=== PATIENT | female | born 1940 | race Caucasian/White ===

== ENCOUNTER 2016-06-09 14:00 | Emergency (ER) | payer OTHER, MEDICARE ==
[~2016-06-09] VITALS: Ht 172.7 cm; Wt 61.0 kg
[2016-06-09 14:00] VITALS: BP 114/57; PULSE 71; RESP 16; TEMP 98.2; O2SAT 100
[~2016-06-09 14:00] MED LIST: BACL10TA PO; CLOP75 PO; DIAZ10TA PO; METF-324 PO; METO25CR PO; PRAV40TA2 PO; PROM25SU8 PR; PROT40TA PO; SERT25TA83 PO; TOPR50TA PO; [UNRECOGNIZED DRUG - CODE] PO
[2016-06-09] MEDS ORDERED: SODIUM CHLOR 0.9% 1000 ML INJ 1,000 ML IV SCH (14:22)
[2016-06-09] MEDS ORDERED: SODIUM CHLORIDE 0.9% FLUSH 5 ML FLUSH IVF PRN (14:30)
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
[2016-06-09 15:17] LABS: AMPHETAMINE, URINE NEG (NEG); BARBITURATES, URINE NEG (NEG); COCAINE, URINE NEG (NEG)
[2016-06-09 15:20] LABS: APTT (PATIENT) 23.2 SEC (24.3-30.1); INTERNATIONAL NORMALIZED RATIO 0.9 RATIO; PROTHROMBIN TIME - PATIENT 10.1 SEC (9.8-11.6)
[2016-06-09 15:22] LABS: BLOOD, URINE NEG (NEG); GLUCOSE,URINE NEG (NEG); GRANULAR CAST, URINE 1 /lpf; HYALINE CAST, URINE 2 /lpf (RARE); KETONE, URINE NEG (NEG); NITRITE,URINE NEG (NEG); PH, URINE 5.5 (5.0-8.5); URINE COLOR YELLOW (YELLW/STRAW)
[2016-06-09 15:23] LABS: COMMENT (UR) CATH-CULTURE IND; CULTURE IF INDICATED CATH CULTURE IND
[2016-06-09 15:24] LABS: AUTOMATED NEUTROPHIL # 6.1 TH/MM3 (1.8-7.7); BASOPHIL % 0.5 % (0.0-2.0); EOSINOPHIL # 0.1 TH/MM3 (0-0.4); EOSINOPHIL % 1.4 % (0.0-4.0); HEMATOCRIT 28.9 % (35.0-46.0); HEMO FLAGS DIFF FINAL; LYMPH % 16.5 % (9.0-44.0); LYMPHOCYTE # 1.3 TH/MM3 (1.0-4.8); MEAN CELL VOLUME 97.5 FL (80.0-100.0); MEAN CORPUSCULAR HEMOGLOBIN 32.1 PG (27.0-34.0); MEAN CORPUSCULAR HGB CONC 32.9 % (32.0-36.0); MONO % 5.4 % (0.0-8.0); NEUT % 76.2 % (16.0-70.0); PLATELET COUNT 354 TH/MM3 (150-450); RED BLOOD COUNT 2.96 MIL/MM3 (4.00-5.30); RED CELL DISTRIBUTION WIDTH 13.8 % (11.6-17.2); WHITE BLOOD COUNT 8.1 TH/MM3 (4.0-11.0)
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
[2016-06-09 15:30] VITALS: BP 143/61; PULSE 72; RESP 16; O2SAT 100
[2016-06-09 15:31] LABS: ALT (GPT) 15 U/L (10-53); ANION GAP 11 MEQ/L (5-15); AST (GOT) 12 U/L (15-37); BICARBONATE 21.3 MEQ/L (21.0-32.0); BLOOD UREA NITROGEN 20 MG/DL (7-18); CHLORIDE 105 MEQ/L (98-107); GLOMERULAR FILTRATION RATE 33 ML/MIN (>89); POTASSIUM 4.6 MEQ/L (3.5-5.1); SODIUM (NA) 137 MEQ/L (136-145)
[2016-06-09 15:41] LABS: ACETAMINOPHEN 10.3 MCG/ML (10.0-30.0); ALKALINE PHOSPHATASE 78 U/L (45-117); TOTAL BILIRUBIN ADULT 0.2 MG/DL (0.2-1.0)
[2016-06-09] MEDS ORDERED: DIAZ10 PO (15:47)
[2016-06-09] MEDS ORDERED: LACO50 PO (15:47)
[2016-06-09] MEDS ORDERED: TOPR50TA PO (15:47)
[2016-06-09] MEDS ORDERED: METF-382 PO (15:47)
[2016-06-09] MEDS ORDERED: PRAV40TA PO (15:47)
[2016-06-09] MEDS ORDERED: PLAV75TA29 PO (15:47)
[2016-06-09] MEDS ORDERED: SERT25TA83 PO (15:47)
[2016-06-09] MEDS ORDERED: PANT40TA3 PO (15:47)
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
[2016-06-09 17:30] VITALS: BP 119/56; PULSE 78; RESP 16; O2SAT 99
--- NOTE | 2016-06-11 00:01 | EKG ---
Date Performed: 06/09/2016 Time Performed: 14:08:28 PTAGE: 76 years EKG: Sinus rhythm NORMAL ECG PREVIOUS TRACING : 12/23/2013 06.27 Compared to prior tracing no significant change DOCTOR: Mao Post Interpretating Date/Time 06/11/2016 00:00:07
== END 2016-06-09 19:58 | disposition home or self-care (01) ==
LOC: NEPA 14:00
DX: R40.0 Somnolence (principal); T40.2X5A Adverse effect of other opioids, initial encounter; M25.552 Pain in left hip; G89.29 Other chronic pain; I10 Essential (primary) hypertension; V47.5XXA Car driver injured in collision with fixed or stationary object in traffic accident, initial encounter; Y92.410 Unspecified street and highway as the place of occurrence of the external cause; Z87.440 Personal history of urinary (tract) infections
CPT/HCPCS: 70450; 73502; 80053; 80307; 80320; 81001; 84443; 85025; 85610; 85730; 87086; 93005; 96360; 96361; 99285; J7030; P9612; 80329; G0480

== ENCOUNTER 2016-08-22 11:05 | Emergency (ER) | payer MEDICARE, OTHER ==
[~2016-08-22] VITALS: Ht 172.7 cm; Wt 57.0 kg
[~2016-08-22 11:05] MED LIST changes: -BACL10TA PO; -CLOP75 PO; +DIAZ10 PO; -DIAZ10TA PO; +LACO50 PO; -METF-324 PO; +METF-382 PO; -METO25CR PO; +PANT40TA3 PO; +PLAV75TA29 PO; +PRAV40TA PO; -PRAV40TA2 PO; -PROM25SU8 PR; -PROT40TA PO; -[UNRECOGNIZED DRUG - CODE] PO
[2016-08-22 11:14] VITALS: BP 121/58; PULSE 93; RESP 16; TEMP 97.8; O2SAT 95
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
--- NOTE | 2016-08-22 11:55 | RADRPT ---
EXAM DATE/TIME: 08/22/2016 11:37 [facility] COMPARISON: No previous studies available for comparison. INDICATIONS : Right ankle pain post fall last night. MEDICAL HISTORY : None. SURGICAL HISTORY : None. ENCOUNTER: Initial ACUITY: 2 days PAIN SCORE: 10/10 LOCATION: Right ankle. FINDINGS: Three view exam was performed of the right ankle. The bony structures are in normal alignment. No e vidence of fracture, dislocation. There is lateral soft tissue swelling. The ankle mortise is intact . No radiopaque foreign bodies are seen. Bony mineralization is under mineralized. CONCLUSION: Soft tissue swelling without fracture. Pelon Clayton MD on August 22, 2016 at 11:53 Board Certified Radiologist. This report was verified electronically.
--- NOTE | 2016-08-22 11:56 | RADRPT ---
EXAM DATE/TIME: 08/22/2016 11:43 [facility] COMPARISON: HUMERUS RIGHT (MIN 2VWS), February 23, 2015, 16:14. INDICATIONS : Right humerus pain post fall last night. MEDICAL HISTORY : None. SURGICAL HISTORY : None. ENCOUNTER: Initial ACUITY: 2 days PAIN SCORE: 10/10 LOCATION: Right humerus. FINDINGS: Two view examination of the right humerus demonstrates no evidence of fracture or dislocation. Bony mineralization is normal. The soft tissue structures are intact. CONCLUSION: No acute fracture. Pelon Clayton MD on August 22, 2016 at 11:54 Board Certified Radiologist. This report was verified electronically.
--- NOTE | 2016-08-22 12:04 | RADRPT ---
EXAM DATE/TIME: 08/22/2016 11:38 [facility] COMPARISON: No previous studies available for comparison. INDICATIONS : Right foot pain post fall last night. MEDICAL HISTORY : None. SURGICAL HISTORY : None. ENCOUNTER: Initial ACUITY: 2 days PAIN SCORE: 10/10 LOCATION: Right foot. FINDINGS: Three view examination of the right foot demonstrates soft tissue swelling. Questionable fracture bas e of distal phalanx great toe. Degenerative changes first metatarsophalangeal joint and interphalange al joints. Osteopenia. The calcaneus is intact. CONCLUSION: 1. Soft tissue swelling with questionable fracture base of distal phalanx of great toe. 2. Osteopenia. Pelon Clayton MD on August 22, 2016 at 11:59 Board Certified Radiologist. This report was verified electronically.
--- NOTE | 2016-08-22 12:05 | RADRPT ---
EXAM DATE/TIME: 08/22/2016 11:40 [facility] COMPARISON: No previous studies available for comparison. INDICATIONS : Right lower leg pain post fall last night. MEDICAL HISTORY : None. SURGICAL HISTORY : None. ENCOUNTER: Initial ACUITY: 2 days PAIN SCORE: 10/10 LOCATION: Right tibia/fibula. FINDINGS: Two view examination of the right tibia demonstrates no evidence of fracture or dislocation. Bony mi neralization is normal. Soft tissue swelling. CONCLUSION: Soft tissue swelling without fracture. Pelon Clayton MD on August 22, 2016 at 12:02 Board Certified Radiologist. This report was verified electronically.
--- NOTE | 2016-08-22 12:31 | PD ---
Data Data Last Documented VS Vital Signs Date Time Temp Pulse Resp B/P Pulse Ox O2 Delivery O2 Flow Rate FiO2 08/22/16 11:14 97.8 93 16 121/58 95 Orders Ankle, Complete ([id number]) (08/22/16 ) Foot, Complete ([id number]) (08/22/16 ) Humerus (Min 2vws) (08/22/16 ) Tibia/Fibula (Ap/Lat) (08/22/16 ) Complete Blood Count With Diff (08/22/16 11:31) Basic Metabolic Panel (Bmp) (08/22/16 11:31) MDM Supervised Visit with LOLY: Yes Narrative Course The history, exam, and medical decision-making in the associated mid-level provider note were completed with my assistance. I reviewed and agree with the findings presented. I attest that I had a [id number] encounter with the patient on the same day, and personally performed and documented my assessment and findings in the medical record. *My assessment and Findings: 76-year-old with a fall last night. She landed on her foot. She is some pain on the lateral aspect of her left ankle. X-rays are negative. States she has been walking on it albeit with some discomfort. She is a walker. She lives with her sister. We did test her in the emergency department in both the patient and her sister comfortable with discharge and outpatient follow-up. Wali Lobato MD August 22, 2016 12:30
== END 2016-08-22 12:53 | disposition home or self-care (01) ==
LOC: NEPD 11:05
DX: S93.401A Sprain of unspecified ligament of right ankle, initial encounter (principal); S90.01XA Contusion of right ankle, initial encounter; E78.00 Pure hypercholesterolemia, unspecified; E11.9 Type 2 diabetes mellitus without complications; I10 Essential (primary) hypertension; K21.9 Gastro-esophageal reflux disease without esophagitis; Z86.73 Personal history of transient ischemic attack (TIA), and cerebral infarction without residual deficits; Z79.02 Long term (current) use of antithrombotics/antiplatelets
CPT/HCPCS: 73060; 73590; 73610; 73630; 99283

== ENCOUNTER 2016-09-19 08:28 | Inpatient (IN) | payer MEDICARE, OTHER ==
[~2016-09-19] VITALS: Ht 172.7 cm; Wt 59.4 kg
[2016-09-19] VITALS (8 sets, daily range): BP systolic 144–180; BP diastolic 65–90; PULSE 78–101; RESP 16–20; TEMP 98.1–98.4; O2SAT 96–100
[2016-09-19] MEDS ORDERED: ALBUAER3 INH (08:48)
--- NOTE | 2016-09-19 09:07 | PD ---
HPI Chief Complaint: Respiratory Symptoms Time Seen by Provider: 09:02 Travel History International Travel<30 days: No Contact w/Intl Traveler<30days: No Traveled to known affect area: No History of Present Illness HPI This is a 76-year-old female history of type 2 diabetes mellitus, who presents today with complaints of shortness of breath and cough. Patient states that last night she was up most the night coughing. She denies any production in her cough. She denies any fevers, chills. She states she has a inhaler that does not seem to be working. She has a doctor that comes to her house to listen to her lungs and stated that she sounded clear. The patient has a right ankle fracture and is wearing a fracture boot. She denies any increased swelling or pain of her leg. She does reports spasms and cramping in her left thigh at times. There are no other complaints time my examination. PFSH Past Medical History Hx Anticoagulant Therapy: Yes (plavix) Anemia: Yes Arthritis: Yes Anxiety: Yes Depression: Yes Cancer: Yes (CERVICAL CA) High Cholesterol: Yes Chest Pain: No Congestive Heart Failure: No Cerebrovascular Accident: Yes Diabetes: Yes Patient Takes Glucophage: No Diminished Hearing: No Gastrointestinal Disorders: Yes (esophageal strictures) GERD: Yes Genitourinary: Yes (incontinent) Headaches: No Hypertension: Yes Immunizations Current: No Migraines: No Seizures: Yes PNEUMOCCOCAL Vaccine (Year): 2 Menopausal: Yes Past Surgical History Appendectomy: Yes Cardiac Surgery: No Cholecystectomy: Yes Ear Surgery: No Endocrine Surgery: Yes Eye Surgery: No Genitourinary Surgery: Yes Gynecologic Surgery: Yes (HYSTERECTOMY,CERVICAL CA REMOVED.) Hysterectomy: No Neurologic Surgery: Yes (C4,C5,C6 PLATE PLACED) Oral Surgery: Yes Thoracic Surgery: No Other Surgery: Yes (LAPAROSCOPIC SP(WRAP STOMACH AROUND ESOPHAGUS TO HELP WITH GERD)) Social History Alcohol Use: No (DENIES) Tobacco Use: No (DENIES) Substance Use: No Allergies-Medications (Allergen,Severity, Reaction): Coded Allergies: Egg Allergy (Verified Allergy, Intermediate, 08/22/16) Flu Vaccine (Verified Allergy, Intermediate, 08/22/16) "ALLERGIC TO EGGS SO I CAN NOT HAVE THE FLU SHOT" Codeine (Verified Allergy, Mild, 08/22/16) Demerol (Verified Allergy, Mild, 08/22/16) Morphine (Verified Allergy, Mild, 08/22/16) Lortab (Verified Adverse Reaction, Mild, HEADACHE, 08/22/16) Reported Meds & Prescriptions Reported Meds & Active Scripts Active Reported Proair Hfa 8.5 GM Inh (Albuterol Sulfate) 90 Mcg/Act Aer 2 Puff INH Q6H PRN 108 mcg/actuation Metformin ER (Metformin HCl) 1,000 Mg Tatiana 1,000 Mg PO BID With evening meal Vimpat (Lacosamide) 50 Mg Tab 50 Mg PO DAILY Valium (Diazepam) 10 Mg Tab 10 Mg PO TID PRN Plavix (Clopidogrel Bisulfate) 75 Mg Tab 75 Mg PO DAILY Toprol XL (Metoprolol Succinate) 50 Mg Tab 50 Mg PO BID Pantoprazole (Pantoprazole Sodium) 40 Mg Tab 40 Mg PO DAILY Pravachol (Pravastatin) 40 Mg Tab 40 Mg PO HS Sertraline (Sertraline HCl) 25 Mg Tab 25 Mg PO DAILY Review of Systems Except as stated in HPI: all other systems reviewed are Neg General / Constitutional: No: Fever, Chills HENT: No: Headaches, Lightheadedness Cardiovascular: No: Chest Pain or Discomfort, Palpitations Respiratory: Positive: Cough, Shortness of Breath, No: Wheezing Gastrointestinal: No: Nausea, Vomiting, Abdominal Pain Genitourinary: No: Urgency, Frequency, Decreased Urinary Output Musculoskeletal: Positive: Other (right ankle fracture and a fracture boot.), No: Weakness, Pain Neurologic: No: Weakness, Dizziness, Headache Physical Exam Narrative GENERAL: Well-nourished, well-developed patient, in no acute respiratory distress. SKIN: Focused skin assessment warm/dry. HEAD: Normocephalic/atraumatic. EYES: No scleral icterus. No injection or drainage. NECK: Supple, trachea midline. No JVD or lymphadenopathy. CARDIOVASCULAR: Regular rate and rhythm without murmurs, gallops, or rubs. RESPIRATORY: Breath sounds equal bilaterally. No accessory muscle use. No Rales or rhonchi appreciated GASTROINTESTINAL: Abdomen soft, non-tender, nondistended. MUSCULOSKELETAL: No cyanosis, or edema. Right lower extremity in a fracture boot. No palpable popliteal cords. No calf tenderness. NEUROLOGICAL: Awake and alert. Cranial nerves II through XII intact. Motor grossly within normal limits. Five out of 5 muscle strength in all muscle groups. Normal speech. Data Data Last Documented VS Vital Signs Date Time Temp Pulse Resp B/P Pulse Ox O2 Delivery O2 Flow Rate FiO2 09/19/16 10:56 78 16 180/90 98 09/19/16 09:15 Room Air 09/19/16 08:30 98.4 Orders Complete Blood Count With Diff (09/19/16 09:02) Basic Metabolic Panel (Bmp) (09/19/16 09:02) D-Dimer (09/19/16 09:02) Ckmb (Isoenzyme) Profile (09/19/16 09:02) Troponin I (09/19/16 09:02) Iv Access Insert/Monitor (09/19/16 09:02) Ecg Monitoring (09/19/16 09:02) Oximetry (09/19/16 09:02) Oxygen Administration (09/19/16 09:02) Chest, Single Ap (09/19/16 09:02) Sodium Chloride 0.9% Flush (Ns Flush) (09/19/16 09:15) Albuterol-Ipratropium Neb (Duoneb Neb) (09/19/16 09:15) Albuterol Neb (Albuterol Neb) (09/19/16 09:15) Us Leg Venous Doppler (09/19/16 09:07) Ct Brain W/O Iv Contrast(Rout) (09/19/16 09:18) CKMB (09/19/16 09:10) CKMB% (09/19/16 09:10) Ct Pulmonary Angiogram (09/19/16 09:58) Iodixanol 320 Inj (Rad Ct) (Visipaque 32 (09/19/16 10:20) Admit Order (Ed Use Only) (09/19/16 11:52) Labs Laboratory Tests Test 09/19/16 09:10 White Blood Count 6.0 TH/MM3 Red Blood Count 3.12 MIL/MM3 Hemoglobin 9.4 GM/DL Hematocrit 29.4 % Mean Corpuscular Volume 94.4 FL Mean Corpuscular Hemoglobin 30.1 PG Mean Corpuscular Hemoglobin 31.9 % Concent Red Cell Distribution Width 15.1 % Platelet Count 357 TH/MM3 Mean Platelet Volume 7.2 FL Neutrophils (%) (Auto) 60.4 % Lymphocytes (%) (Auto) 28.2 % Monocytes (%) (Auto) 7.2 % Eosinophils (%) (Auto) 3.2 % Basophils (%) (Auto) 1.0 % Neutrophils # (Auto) 3.6 TH/MM3 Lymphocytes # (Auto) 1.7 TH/MM3 Monocytes # (Auto) 0.4 TH/MM3 Eosinophils # (Auto) 0.2 TH/MM3 Basophils # (Auto) 0.1 TH/MM3 CBC Comment DIFF FINAL Differential Comment D-Dimer Quantitative (PE/DVT) 1.74 MG/L FEU Sodium Level 139 MEQ/L Potassium Level 4.8 MEQ/L Chloride Level 113 MEQ/L Carbon Dioxide Level 14.7 MEQ/L Anion Gap 11 MEQ/L Blood Urea Nitrogen 25 MG/DL Creatinine 1.48 MG/DL Estimat Glomerular Filtration 34 ML/MIN Rate Random Glucose 104 MG/DL Calcium Level 9.0 MG/DL Total Creatine Kinase 121 U/L Creatine Kinase MB 0.9 NG/ML Troponin I 0.03 NG/ML MDM Medical Decision Making Medical Screen Exam Complete: Yes Emergency Medical Condition: Yes Differential Diagnosis COPD exacerbation versus bronchitis versus pulmonary embolus Narrative Course 76-year-old female presents with right ankle fracture 6 weeks prior, presents today with shortness of breath. The patient has a MDI at home that is not working. She has a physician that comes to her house who listened to her lungs and said he did not hear anything. The patient states that she coughed all night last night. The patient had some swelling noted in the right lower extremity. DVT ultrasound reveals DVT. Pulmonary angiogram does not show pulmonary embolus in the central vessels. Patient's hematomas noted to be 9.2. The patient had had a fall and was complaining of headache. CT brain shows no evidence of acute cranial injury. Given the fact that she is falling, has a DVT, has a hemoglobin of 9.2, I feel she meets inpatient criteria. Case discussed with the resident service for admission. Diagnosis Primary Impression: Deep vein thrombosis (DVT) of right lower extremity Additional Impressions: Anemia At risk for falls Shortness of breath cough Diabetes mellitus Admitting Information Admitting Physician Requests: Admit Patrick Loera MD Sep 19, 2016 09:07 Patrick Loera MD Sep 19, 2016 09:07
[2016-09-19] MEDS ORDERED: SODIUM CHLORIDE 0.9% FLUSH 10 ML FLUSH IVF PRN (09:15)
[2016-09-19] MEDS ORDERED: RESP: ALBUTEROL 2.5 MG/IPRATROPIUM 0.5 MG NEB (SCH) INH ONE (09:15)
[2016-09-19] MEDS: RESP: ALBUTEROL 2.5 MG/3 ML NEB (SCH) INH ×2 (09:17→09:18)
--- NOTE | 2016-09-19 09:26 | RADRPT ---
EXAM DATE/TIME: 09/19/2016 09:12 [facility] COMPARISON: CHEST SINGLE AP, December 23, 2013, 6:50. INDICATIONS : Short of breath MEDICAL HISTORY : Diabetes mellitus type II. SURGICAL HISTORY : Fusion, cervical. Fracture right foot ENCOUNTER: Initial ACUITY: 1 month PAIN SCORE: 0/10 LOCATION: Bilateral chest FINDINGS: A single view of the chest demonstrates the lungs to be symmetrically aerated without evidence of mas s, infiltrate or effusion. The cardiomediastinal contours are unremarkable. Osseous structures are intact. Previous surgical fusion is noted. CONCLUSION: No acute disease. Roque Tripathi MD FACR on September 19, 2016 at 9:23 Board Certified Radiologist. This report was verified electronically.
[2016-09-19 09:27] LABS: AUTOMATED NEUTROPHIL # 3.6 TH/MM3 (1.8-7.7); BASOPHIL # 0.1 TH/MM3 (0-0.2); EOSINOPHIL # 0.2 TH/MM3 (0-0.4); EOSINOPHIL % 3.2 % (0.0-4.0); HEMATOCRIT 29.4 % (35.0-46.0); HEMO FLAGS DIFF FINAL; LYMPH % 28.2 % (9.0-44.0); LYMPHOCYTE # 1.7 TH/MM3 (1.0-4.8); MEAN CELL VOLUME 94.4 FL (80.0-100.0); MEAN CORPUSCULAR HEMOGLOBIN 30.1 PG (27.0-34.0); MEAN CORPUSCULAR HGB CONC 31.9 % (32.0-36.0); MONO % 7.2 % (0.0-8.0); NEUT % 60.4 % (16.0-70.0); PLATELET COUNT 357 TH/MM3 (150-450); RED BLOOD COUNT 3.12 MIL/MM3 (4.00-5.30); RED CELL DISTRIBUTION WIDTH 15.1 % (11.6-17.2)
--- NOTE | 2016-09-19 09:49 | RADRPT ---
EXAM DATE/TIME: 09/19/2016 09:18 [facility] COMPARISON: No previous studies available for comparison. INDICATIONS : Right leg swelling. MEDICAL HISTORY : Hypercholesterolemia. Arthritis. Osteoporosis. Cervical cancer. GERD. CVA. Seizures. Head trauma. Numbness. HTN. Esophageal strictures. Diabetes. Anemia. Depression. Anxiety. Anitcoagulant therapy, P lavix. SURGICAL HISTORY : Appendectomy. Cholecystectomy. Hysterectomy. C4-C6 plate placed. Cervical conization. Righ knee jose nstruction. Right hammer toe repair. Laparoscopic deondre. ENCOUNTER: Initial ACUITY: 4 - 6 days PAIN SCORE: 10/10 LOCATION: Right leg. TECHNIQUE: Venous ultrasound of the leg was performed from the inguinal ligament to the proximal calf. Real-nesha e, color Doppler and spectral tracing, compression and augmentation techniques were used. FINDINGS: There is deep venous thrombosis from posterior tibial vein extending across the knee into the mid trevor p femoral vein. CONCLUSION: Venous Doppler positive for deep venous thrombosis beginning below the knee and extending to mid thig h. Roque Tripathi MD FACR on September 19, 2016 at 9:46 Board Certified Radiologist. This report was verified electronically.
[2016-09-19 09:56] LABS: CREATINE KINASE 121 U/L (26-192)
[2016-09-19 10:08] LABS: CKMB 0.9 NG/ML (0.5-3.6)
[2016-09-19 10:10] LABS: ANION GAP 11 MEQ/L (5-15); BICARBONATE 14.7 MEQ/L (21.0-32.0); BLOOD UREA NITROGEN 25 MG/DL (7-18); CHLORIDE 113 MEQ/L (98-107); GLOMERULAR FILTRATION RATE 34 ML/MIN (>89); POTASSIUM 4.8 MEQ/L (3.5-5.1); SODIUM (NA) 139 MEQ/L (136-145)
[2016-09-19] MEDS ORDERED: IODIXANOL 320 MG/ML 10 ML VIAL (for Rad CT) IV ONE (10:20)
--- NOTE | 2016-09-19 10:36 | RADRPT ---
EXAM DATE/TIME: 09/19/2016 10:00 [facility] COMPARISON: CT BRAIN W/O CONTRAST, June 09, 2016, 14:47. INDICATIONS : Posterior cephalgia for three days. RADIATION DOSE: 56.35 CTDIvol (mGy) MEDICAL HISTORY : Stroke. SURGICAL HISTORY : Appendectomy. Cholecystectomy. ENCOUNTER: Initial ACUITY: 3 days PAIN SCALE: 6/10 LOCATION: Bilateral occipital head TECHNIQUE: Multiple contiguous axial images were obtained of the head. Using automated exposure control and adjustment of the mA and/or kV according to patient size, radiation dose was kept as low as reasonably achievable to obtain optimal diagnostic quality images. FINDINGS: CEREBRUM: The ventricles are normal for age. No evidence of midline shift, mass lesion, hemorrha ge or acute infarction. No extra-axial fluid collections are seen. POSTERIOR FOSSA: The cerebellum and brainstem are intact. The 4th ventricle is midline. The cer ebellopontine angle is unremarkable. EXTRACRANIAL: The visualized portion of the orbits is intact. SKULL: The calvaria is intact. No evidence of skull fracture. CONCLUSION: Negative for acute process. Roque Tripathi MD FACR on September 19, 2016 at 10:34 Board Certified Radiologist. This report was verified electronically.
--- NOTE | 2016-09-19 10:52 | RADRPT ---
EXAM DATE/TIME: 09/19/2016 10:36 [facility] COMPARISON: No previous studies available for comparison. INDICATIONS : Shortness of breath. IV CONTRAST: 50 cc Visipaque (iodixanol) IV RADIATION DOSE: 5.21 CTDIvol (mGy) MEDICAL HISTORY : Stroke. Carcinoma, not otherwise specified. SURGICAL HISTORY : Hysterectomy. Appendectomy.Cholecystectomy.Neck. ENCOUNTER: Initial ACUITY: 1 day PAIN SCALE: 4/10 LOCATION: Bilateral chest TECHNIQUE: Volumetric scanning of the chest was performed using a pulmonary embolism protocol MIP images were re constructed. Using automated exposure control and adjustment of the mA and/or kV according to patien t size, radiation dose was kept as low as reasonably achievable to obtain optimal diagnostic quality images. FINDINGS: PULMONARY ARTERIES: No filling defects are seen in the pulmonary arteries through the segmental level. LUNGS: There is no consolidation or pneumothorax . No concerning pulmonary nodule is visualized. PLEURAE: There is no pleural thickening or pleural effusion. MEDIASTINUM: There is good visualization of the great vessels of the middle mediastinum. No evidence of mediastin al or hilar adenopathy/mass. MUSCULOSKELETAL: Within normal limits for patient age. MISCELLANEOUS: The visualized upper abdominal organs demonstrate no acute abnormality. CONCLUSION: Negative for negative for central pulmonary emboli.. Roque Tripathi MD FACR on September 19, 2016 at 10:48 Board Certified Radiologist. This report was verified electronically.
[2016-09-19] MEDS ORDERED: KETOROLAC TROMETHAMINE 30 MG/ML (IVP) VIAL IV PUSH ONE (12:15)
--- NOTE | 2016-09-19 12:19 | HHI.HP ---
HPI Service Family Medicine Primary Care Physician Non-Staff Admission Diagnosis right lower extremity dvt, respiratory distress, anemia, Diagnoses: International Travel<30 Days: No Contact w/Intl Traveler<30days: No Known Affected Area: No History of Present Illness Ms. Darden is a 76 y/o F with an extensive PMHx presenting with SOB. She states that over the last 2 weeks she has become increasingly short of breath with a nonproductive cough. She denies any fevers, chills, or hemoptysis. Overnight she states that she had a cough all night with shortness of breath resulting her to not sleep. She then decided to come to the ER for further evaluation. She has tried to use her Proair to assist with the SOB however her symptoms have not been relieved. She has been more inactive recently as she recently fractured her ankle and is in a medical boot. She had difficulty ambulating at baseline and requires a walker. She is seen regularly by [facility]. She was recently evaluated by a PA from the service without any complications. She currently lives at home with her adopted sister who assists her with care. (Rashad Lucio MD R1) Review of Systems Constitutional: COMPLAINS OF: Night Sweats (Since ankle fracture), DENIES: Chills Eyes: DENIES: Blurred vision Ears, nose, mouth, throat: COMPLAINS OF: Throat pain, DENIES: Running Nose Respiratory: COMPLAINS OF: Cough (Since her fracture), Shortness of breath ( Since her fracture ) Cardiovascular: DENIES: Chest pain Gastrointestinal: DENIES: Diarrhea, Nausea, Vomiting Genitourinary: DENIES: Dysuria Musculoskeletal: COMPLAINS OF: Joint pain Integumentary: DENIES: Rash Hematologic/lymphatic: DENIES: Lymphadenopathy Neurologic: DENIES: Headache Psychiatric: DENIES: Mood changes (Rashad Lucio MD R1) Past Family Social History Past Medical History Anemia - denies history of bleeding (disorder, GI, etc.) Arthritis Anxiety/depression Cervical cancer DM Hyperlipidemia Prior CVA Diabetes mellitus Esophageal stricture Incontinence - wears pad at night only Seizures - absence seizure, last seizure 2 years ago Chronic bronchitis Hx of polio Past Surgical History Appendectomy Cholecystectomy Hysterectomy with cervical cancer. C4-C6 plate placed Laparoscopic Hernandez procedure Oral surgery R knee replacement (Rashad Lucio MD R1) Allergies: Coded Allergies: Egg Allergy (Verified Allergy, Intermediate, 08/22/16) Flu Vaccine (Verified Allergy, Intermediate, 08/22/16) "ALLERGIC TO EGGS SO I CAN NOT HAVE THE FLU SHOT" Codeine (Verified Allergy, Mild, 08/22/16) Demerol (Verified Allergy, Mild, 08/22/16) Morphine (Verified Allergy, Mild, 08/22/16) Lortab (Verified Adverse Reaction, Mild, HEADACHE, 08/22/16) Family History Unknown history as patient is adopted Son - CAD Social History She lives at home with her adopted sister in a home. At baseline she has a walker to assist with ambulation. Has a dog at home Smokingdenies tobacco history, stopped smoking 45 years ago Alcoholdenies alcohol history, social drinker until the mid-, has abstained since Illicit drugsdenies illicit drug history (Rashad Lucio MD R1) Physical Exam Vital Signs Vital Signs Date Time Temp Pulse Resp B/P Pulse Ox O2 Delivery O2 Flow Rate FiO2 09/19/16 10:56 78 16 180/90 98 09/19/16 09:15 Room Air 09/19/16 09:15 Room Air 09/19/16 08:30 98.4 84 16 174/77 100 Physical Exam GENERAL: Well-nourished, well-developed patient. No acute distress. SKIN: Warm and dry. No rash. HEENT: Atraumatic, normocephalic with EOMI. PERRLA. Oropharynx clear without erythema or exudate. Dentures in place. No rhinorrhea. No LAD or JVD appreciated. CARDIOVASCULAR: Regular rate and rhythm without obvious murmurs, gallops, or rubs. RESPIRATORY: Clear to auscultation bilaterally with no CRW. No increased work of breathing. GASTROINTESTINAL: Abdomen soft, non-tender, nondistended with positive bowel sounds. No masses or hepatosplenomegaly appreciated. Mild suprapubic tenderness. MUSCULOSKELETAL: No cyanosis or edema. Strength grossly WNL. 2+ pulses in all 4 extremities. Right lower extremity: Medical boot in place from toes to knees. Tenderness to palpation of the calf. Extremity appears swollen compared to left lower extremity without changes in skin. Sensation and range of motion intact throughout the lower extremity. BACK: Nontender without obvious deformity. No CVA tenderness. NEURO/PSYCH: Afocal. Awake, alert, and oriented x3. No gross abnormalities. Normal speech and interaction with examiners. Laboratory Laboratory Tests Test 09/19/16 09:10 White Blood Count 6.0 Red Blood Count 3.12 Hemoglobin 9.4 Hematocrit 29.4 Mean Corpuscular Volume 94.4 Mean Corpuscular Hemoglobin 30.1 Mean Corpuscular Hemoglobin 31.9 Concent Red Cell Distribution Width 15.1 Platelet Count 357 Mean Platelet Volume 7.2 Neutrophils (%) (Auto) 60.4 Lymphocytes (%) (Auto) 28.2 Monocytes (%) (Auto) 7.2 Eosinophils (%) (Auto) 3.2 Basophils (%) (Auto) 1.0 Neutrophils # (Auto) 3.6 Lymphocytes # (Auto) 1.7 Monocytes # (Auto) 0.4 Eosinophils # (Auto) 0.2 Basophils # (Auto) 0.1 CBC Comment DIFF FINAL Differential Comment D-Dimer Quantitative (PE/DVT) 1.74 Sodium Level 139 Potassium Level 4.8 Chloride Level 113 Carbon Dioxide Level 14.7 Anion Gap 11 Blood Urea Nitrogen 25 Creatinine 1.48 Estimat Glomerular Filtration 34 Rate Random Glucose 104 Calcium Level 9.0 Total Creatine Kinase 121 Creatine Kinase MB 0.9 Troponin I 0.03 (Rashad Lucio MD R1) Result Diagram: 09/19/1610 09/19/16909 Imaging Last [address] Angiography 09/19/1658 Signed Impressions: Service Date/Time: Monday, September 19, 2016 10:36 - CONCLUSION: Negative for negative for central pulmonary emboli.. Roque Tripathi MD FACR Head CT 09/19/1618 Signed Impressions: Service Date/Time: Monday, September 19, 2016 10:00 - CONCLUSION: Negative for acute process. Roque Tripathi MD FACR Lower Extremity Ultrasound 09/19/16 0907 Signed Impressions: Service Date/Time: Monday, September 19, 2016 09:18 - CONCLUSION: Venous Doppler positive for deep venous thrombosis beginning below the knee and extending to mid thigh. Roque Tripathi MD FACR Chest X-Ray 09/19/16 09 Signed Impressions: Service Date/Time: Monday, September 19, 2016 09:12 - CONCLUSION: No acute disease. Roque Tripathi MD FACR (Rashad Lucio MD R1) Assessment and Plan Assessment and Plan Ms. Darden is a 76 y/o F with an extensive PMHx presenting with SOB found to have DVT without PE. She will be admitted for medical management of her DVT. Code Status FULL Discussed Condition With Dr. Loera, ER physician Dr. Darius Lugo (Rashad Lucio MD R1) Attending Attestation Patient seen and examined. Case reviewed and discussed with the resident team. Agree with plan of care as discussed with me and documented in the resident note. (Ivone Mccoy MD) Problem List: (1) Deep vein thrombosis (DVT) of right lower extremity Status: Acute Plan: Patient admitted with RLE DVT without evidence of PE. Patient has had decreased mobility secondary to R ankle fracture secondary to fall. Chest x-ray: No acute disease Right lower extremity Doppler ultrasound: Venous Doppler positive for DVT beginning below the knee and extending to the mid thigh. Pulmonary CTA: Negative for central pulmonary emboli. CBC: H/H 01/07 BMP: BUN 25, creatinine 1.48 Troponin 0.03 Coagulation panel: Pending D-dimer: 1.74 Hemoccult: Pending Fall precautions Pulse oximetry with nasal cannula when necessary Incentive spirometry with Acapella Medications: Toradol and breathing treatments given in ER Tylenol 500 mg every 6 hours when necessary for pain or fever DuoNeb every 6 hours when necessary for shortness of breath or wheezing Heparin drip per protocol with 80 units per kilogram bolus administered (2) Creatinine elevation Status: Acute Plan: Patient with elevated creatinine to 1.48. Baseline per chart review approximately less than 1 per 2013. BMP: BUN 25, creatinine 1.48 Renal ultrasound: Pending 1 L normal saline at maintenance rate (3) Chronic disease Status: Acute Plan: Seizure disordercontinued Vimpat 50 mg daily Diabetes mellitushold metformin, sliding scale insulin per protocol Anxietycontinue Valium 2 mg 3 times a day GERDcontinue Protonix 40 mg daily Hyperlipidemiacontinue pravastatin 40 mg nightly Depressioncontinue sertraline 25 mg daily History TIAcontinue Plavix (4) Nutrition, metabolism, and development symptoms Status: Acute Plan: Diet: Diabetic diet as tolerated Fluids: Tolerating by mouth fluids, 1 L bolus given at maintenance and ER Electrolytes: Within normal limits, continue to monitor Prophylaxis: DuoNeb's when necessary for shortness of breath/wheezing, Tylenol when necessary for pain (5) No contraindication to deep vein thrombosis (DVT) prophylaxis Status: Acute Plan: Heparin drip per protocol for DVT SCD/TEDs (Rashad Lucio MD R1) Physician Certification 2 Midnight Certification Type: Admission for Inpatient Services Order for Inpatient Services The services are ordered in accordance with Medicare regulations or non- Medicare payer requirements, as applicable. In the case of services not specified as inpatient-only, they are appropriately provided as inpatient services in accordance with the 2-midnight benchmark. Estimated LOS (days): 3 3 days is the estimated time the patient will need to remain in the hospital, assuming treatment plan goals are met and no additional complications. Post-Hospital Plan: Home (Rashad Lucio MD R1) Rashad Lucio MD R1 Sep 19, 2016 12:19 Ivone Mccoy MD Sep 20, 2016 11:42
--- NOTE | 2016-09-19 13:21 | HHI.FPPN ---
Subjective Remarks Pt. seen, examined and discussed with Drs. Lucio and Parish. This is a 76 yo female with recent ankle fracture wearing a boot who presents with SOB and pain below her right knee. Has been homebound until the evening prior to admission. Report hx of chronic bronchitis, quit smoking 45 years ago. She doesn't have a regular doctor; is seen by PAs in her home. Used to see Dr. Montanez. She has been falling quite a bit of late. Home meds are extensive and were reviewed with patient and her sister, with whom she lives. Hx seizure disorder, elevated cholesterol, cervical CA, stroke on Plavix. See H &P for this admission for additional past, family, social history and ROS. She does admit to frequent sweats and multiple episodes of nocturia. At the time seen with the medicine time, she was no longer SOB and only c/o discomfort below right knee and in her right ankle. Objective Vitals Vital Signs Date Time Temp Pulse Resp B/P Pulse Ox O2 Delivery O2 Flow Rate FiO2 09/19/16 10:56 78 16 180/90 98 09/19/16 09:15 Room Air 09/19/16 09:15 Room Air 09/19/16 08:30 98.4 84 16 174/77 100 Result Diagram: 09/19/1610 09/19/16909 Other Results Imaging Last Impressions CT Angiography 09/19/1658 Signed Impressions: Service Date/Time: Monday, September 19, 2016 10:36 - CONCLUSION: Negative for negative for central pulmonary emboli.. Roque Tripathi MD FACR Head CT 09/19/1618 Signed Impressions: Service Date/Time: Monday, September 19, 2016 10:00 - CONCLUSION: Negative for acute process. Roque Tripathi MD FACR Lower Extremity Ultrasound 09/19/16 0907 Signed Impressions: Service Date/Time: Monday, September 19, 2016 09:18 - CONCLUSION: Venous Doppler positive for deep venous thrombosis beginning below the knee and extending to mid thigh. Roque Tripathi MD FACR Chest X-Ray 09/19/16 09 Signed Impressions: Service Date/Time: Monday, September 19, 2016 09:12 - CONCLUSION: No acute disease. Roque Tripathi MD FACR Objective Remarks O. CONSTITUTIONAL/GEN: normally nourished, in NAD. EYES: conjunctiva normal, PERRLA, EOMI. ENT: Mouth and pharynx normal. Dentures. NECK: thyroid midline, carotids symmetrical. Neck supple. LUNGS: clear A-P, respiratory effort is normal. CARDIOVASCULAR: RR without murmur or gallop. No significant edema. GI/ABD: soft without masses, without organomegaly. BS +. : no CVA tenderness NEURO: No focal deficits. SKIN: color normal, no rashes noted. HEME/LYMPH: no bruising, petechia or significant adenopathy MUSC: back is normal in appearance. Extremities are normal in appearance with boot right lower leg. Some swelling below right knee with scar from previous surgery. PSYCH/MENTAL STATUS: Alert and oriented x 3. Some mild cognitive issues. A/P Assessment and Plan 76 yo with DVT right leg and history of recent ankle fracture. Also with hx stroke, cervical CA, seizures (last seizure 2 years ago). Attending Attestation Patient seen and examined. Case reviewed and discussed with the resident team. Agree with plan of care as discussed with me and documented in the resident note. Problem List: (1) Deep vein thrombosis (DVT) of right lower extremity Status: Acute (2) Chronic disease Status: Acute (3) Nutrition, metabolism, and development symptoms Status: Acute (4) No contraindication to deep vein thrombosis (DVT) prophylaxis Status: Acute Ivone Mccoy MD Sep 19, 2016 13:21
[2016-09-19] MEDS ORDERED: SODIUM CHLOR 0.9% 1000 ML INJ 1,000 ML IV SCH (13:41)
[2016-09-19] MEDS: SODIUM CHLORIDE 0.9% FLUSH 10 ML FLUSH IV FLUSH SCH ×2 (13:45→19:58)
[2016-09-19] MEDS ORDERED: SODIUM CHLORIDE 0.9% FLUSH 10 ML FLUSH IV FLUSH PRN (13:45)
[2016-09-19] MEDS ORDERED: HEPARIN SODIUM - IV 10,000 UNITS/10 ML VIAL IV ONE (13:45)
[2016-09-19] MEDS ORDERED: ACETAMINOPHEN 500 MG CPLT PO PRN (14:15)
[2016-09-19] MEDS: HEPARIN-D5W INJ 250 ML IV SCH (14:46)
[2016-09-19 14:53] LABS: APTT (PATIENT) 18.7 SEC (24.3-30.1); PROTHROMBIN TIME - PATIENT 10.6 SEC (9.8-11.6)
[2016-09-19] MEDS ORDERED: RESP: ALBUTEROL 2.5 MG/IPRATROPIUM 0.5 MG NEB (PRN) NEB (15:30)
[2016-09-19] MEDS ORDERED: ALBUTEROL SULFATE 90 MCG/ACT HFA 18 GM INHALER INH PRN (15:45)
[2016-09-19] MEDS ORDERED: GLUCAGON 1 MG/ML VIAL OTHER PRN (19:15)
[2016-09-19] MEDS ORDERED: DEXTROSE 50% IN WATER 50 ML VIAL(D50) IV PRN (19:15)
[2016-09-19] MEDS ORDERED: ONDANSETRON ODT 4 MG TAB PO SCH (19:30)
[2016-09-19] MEDS ORDERED: HEPARIN SODIUM - IV 10,000 UNITS/10 ML VIAL IV PRN ×2 (19:45)
[2016-09-19] MEDS: INSULIN ASPART SUPPLEMENTAL SCALE SQ SCH (19:58)
[2016-09-19] MEDS: METOPROLOL SUCCINATE 50 MG EXTENDED RELEASE TAB PO SCH (19:59)
[2016-09-19] MEDS: ONDANSETRON ODT 4 MG TAB PO PRN (19:59)
[2016-09-19] MEDS: PRAVASTATIN SOD 40 MG TAB PO SCH (19:59)
[2016-09-19] MEDS: HYDROmorphone HCL PF 1 MG/ML VIAL IV PUSH PRN (20:00)
--- NOTE | 2016-09-19 21:12 | RADRPT ---
EXAM DATE/TIME: 09/19/2016 19:56 [facility] COMPARISON: No previous studies available for comparison. EXTERNAL COMPARISON : [facility], CT ABDOMEN & PELVIS W & W/O CONTRAST, March 09, 2012 INDICATIONS : Increased BUN/Creatinine. MEDICAL HISTORY : Hypercholesterolemia. Hypertension. Gastroesophageal reflux disease. Cerebrovascular accident. Seizur es. Head trauma. Anticoagulant therapy. Incontinence. Right ankle fracture. Esophageal strictures. Ar thritis. Osteoporosis. Diabetes. Depression. Anxiety. Cervical cancer. SURGICAL HISTORY : Cholecystectomy. Appendectomy. Cervical conization. Multiple spine surgeries. Right knee surgery. R ight foot hammer toe repair. ENCOUNTER: Initial ACUITY: 1 day PAIN SCORE: 3/10 LOCATION: Bilateral flank MEASUREMENTS: RIGHT KIDNEY: 10.1 x 4.0 x 4.3 cm LEFT KIDNEY: 10.8 x 5.0 x 5.2 cm FINDINGS: RIGHT KIDNEY: Renal cortex is normal in thickness and echotexture. No hydronephrosis, stone, or mass. LEFT KIDNEY: Renal cortex is normal in thickness and echotexture. No hydronephrosis, stone, or mass. BLADDER: Mildly distended. CONCLUSION: Negative renal sonogram. No evidence of hydronephrosis. Dano Mercer MD on September 19, 2016 at 21:09 Board Certified Radiologist. This report was verified electronically.
[2016-09-19 22:58] LABS: APTT (PATIENT) 110.9 SEC (24.3-30.1)
[2016-09-20] VITALS (7 sets, daily range): BP systolic 135–176; BP diastolic 61–81; PULSE 74–91; RESP 16–20; TEMP 98–98.3; O2SAT 96–100
[2016-09-20 00:50] LABS: BLOOD, URINE NEG (NEG); COMMENT (UR) CULT NOT INDICATED; CULTURE IF INDICATED CULT NOT INDICATED; GLUCOSE,URINE NEG (NEG); HYALINE CAST, URINE 1 /lpf (RARE); KETONE, URINE NEG (NEG); MUCUS URINE FEW /lpf (OCC); NITRITE,URINE NEG (NEG); PH, URINE 5.5 (5.0-8.5); URINE COLOR LIGHT-YELLOW (YELLW/STRAW)
[2016-09-20 01:58] LABS: BASOPHIL % 0.6 % (0.0-2.0); EOSINOPHIL # 0.1 TH/MM3 (0-0.4); EOSINOPHIL % 1.8 % (0.0-4.0); HEMATOCRIT 26.8 % (35.0-46.0); HEMO FLAGS DIFF FINAL; LYMPH % 44.8 % (9.0-44.0); MEAN CELL VOLUME 94.5 FL (80.0-100.0); MEAN CORPUSCULAR HEMOGLOBIN 30.2 PG (27.0-34.0); MEAN CORPUSCULAR HGB CONC 31.9 % (32.0-36.0); MONO % 8.6 % (0.0-8.0); NEUT % 44.2 % (16.0-70.0); PLATELET COUNT 277 TH/MM3 (150-450); RED BLOOD COUNT 2.84 MIL/MM3 (4.00-5.30); RED CELL DISTRIBUTION WIDTH 15.1 % (11.6-17.2); WHITE BLOOD COUNT 6.8 TH/MM3 (4.0-11.0)
[2016-09-20 02:02] LABS: APTT (PATIENT) 44.9 SEC (24.3-30.1)
[2016-09-20] MEDS: HYDROmorphone HCL PF 1 MG/ML VIAL IV PUSH PRN ×5 (02:08→22:35)
[2016-09-20 02:09] LABS: BICARBONATE 20.1 MEQ/L (21.0-32.0); POTASSIUM 4.7 MEQ/L (3.5-5.1)
[2016-09-20] MEDS: ONDANSETRON ODT 4 MG TAB PO PRN ×2 (02:10→16:25)
[2016-09-20] MEDS: INSULIN ASPART SUPPLEMENTAL SCALE SQ SCH ×4 (06:10→21:00)
[2016-09-20] MEDS: SODIUM CHLORIDE 0.9% FLUSH 10 ML FLUSH IV FLUSH SCH ×2 (09:00→21:15)
[2016-09-20] MEDS: SERTRALINE HCL 50 MG TAB PO SCH (09:27)
[2016-09-20] MEDS: PANTOPRAZOLE SOD 40 MG DELAYED RELEASE TAB PO SCH (09:27)
[2016-09-20] MEDS: METOPROLOL SUCCINATE 50 MG EXTENDED RELEASE TAB PO SCH ×2 (09:28→21:15)
[2016-09-20] MEDS: LACOSAMIDE 50 MG TAB PO SCH (09:29)
[2016-09-20] MEDS: CLOPIDOGREL 75 MG TAB PO SCH (09:29)
--- NOTE | 2016-09-20 14:53 | HHI.FPPN ---
Subjective Remarks Patient seen and examined this morning by medical team. No acute events overnight with vital signs stable. Patient states that Dilaudid medication was well-tolerated with Zofran administration and has helped her pain. Otherwise she has no complaints and denies any fevers, chills, shortness of breath, chest pain, abdominal pain, or NVD. (Rashad Lucio MD R1) Objective Vitals Vital Signs Date Time Temp Pulse Resp B/P Pulse Ox O2 Delivery O2 Flow Rate FiO2 09/20/16 12:00 98.1 74 20 151/69 96 09/20/16 11:01 18 09/20/16 08:42 97 21 09/20/16 08:00 98.2 85 18 159/69 96 09/20/16 04:00 Room Air 09/20/16 04:00 98.0 76 18 140/66 96 09/20/16 00:00 Room Air 09/20/16 00:00 98.1 83 18 135/61 97 09/19/16 20:00 Room Air 09/19/16 20:00 98.1 84 20 144/65 99 09/19/16 16:24 96 21 09/19/16 16:00 98.4 94 18 144/74 100 09/19/16 14:49 101 16 151/65 96 I/O 09/19/16 09/19/16 09/19/16 09/20/16 09/20/16 09/20/16 07:00 15:00 23:00 07:00 15:00 23:00 Intake Total 1112 ml 480 ml Balance 1112 ml 480 ml Intake Oral 240 ml 480 ml IV Total 872 ml # Voids 1 2 # Bowel Movements 0 0 (Rashad Lucio MD R1) Result Diagram: 09/20/1611109/20/162 Objective Remarks GENERAL: Well-nourished, well-developed patient. No acute distress. SKIN: Warm and dry. No rash. Multiple small ecchymosis on extremities likely secondary to anticoagulation. HEENT: Atraumatic, normocephalic with EOMI. MMM. No rhinorrhea. No JVD or LAD appreciated. CARDIOVASCULAR: Regular rate and rhythm without obvious murmurs, gallops, or rubs. RESPIRATORY: Clear to auscultation bilaterally with no CRW. No increased work of breathing. GASTROINTESTINAL: Abdomen soft, non-tender, nondistended with positive bowel sounds. No masses or hepatosplenomegaly appreciated. Mild suprapubic tenderness. MUSCULOSKELETAL: No cyanosis or edema. Strength grossly WNL. 2+ pulses in all 4 extremities. Right lower extremity: Medical boot in place from toes to knees. Boot removed to check for sensation and pulses are both intact. Tenderness to palpation of the calf and ankle. Extremity appears swollen compared to left lower extremity without changes in skin or warmth. Sensation and range of motion intact throughout the lower extremity.. NEURO/PSYCH: Afocal. Awake, alert, and oriented x3. No gross abnormalities. Normal speech and interaction with examiners. (Rashad Lucio MD R1) A/P Assessment and Plan Ms. Darden is a 76 y/o F with an extensive PMHx presenting with SOB found to have DVT without PE. She will be admitted for medical management of her DVT. Discharge Planning Pending clinical improvement and initiation of oral anticoagulant. (Rashad Lucio MD R1) Attending Attestation Patient seen and examined. Case reviewed and discussed with the resident team. Agree with plan of care as discussed with me and documented in the resident note. (Ivone Mccoy MD) Problem List: (1) Deep vein thrombosis (DVT) of right lower extremity Status: Acute Plan: Patient admitted with RLE DVT without evidence of PE. Patient has had decreased mobility secondary to R ankle fracture secondary to fall. Chest x-ray: No acute disease Right lower extremity Doppler ultrasound: Venous Doppler positive for DVT beginning below the knee and extending to the mid thigh. Pulmonary CTA: Negative for central pulmonary emboli. CBC: H/H 8.6/26.8 BMP: Creatinine improved from 1.48-1.2 Hemoccult: Pending Fall precautions Pulse oximetry with nasal cannula when necessary Incentive spirometry with Acapella Medications: Toradol and breathing treatments given in ER Dilaudid 0.2 mg every 4 hours when necessary for pain (pretreat with Zofran 4 mg) Tylenol 500 mg every 6 hours when necessary for pain or fever DuoNeb every 6 hours when necessary for shortness of breath or wheezing Heparin drip per protocol with 80 units per kilogram bolus administered; scheduled for discontinuation on 09/20 at 2100 Start Eliquis 10 mg twice a day for first 7 days followed by maintenance therapy of 5 mg twice a day at discharge (2) Creatinine elevation Status: Acute Plan: Patient with elevated creatinine to 1.48. Baseline per chart review approximately less than 1 per 2013. BMP: Creatinine improved from 1.48 to 1.2 Renal ultrasound: Negative renal ultrasound 1 L normal saline at maintenance rate (3) Chronic disease Status: Acute Plan: Seizure disordercontinued Vimpat 50 mg daily Diabetes mellitushold metformin, sliding scale insulin per protocol Anxietycontinue Valium 2 mg 3 times a day GERDcontinue Protonix 40 mg daily Hyperlipidemiacontinue pravastatin 40 mg nightly Depressioncontinue sertraline 25 mg daily History TIAcontinue Plavix (4) Nutrition, metabolism, and development symptoms Status: Acute Plan: Diet: Diabetic diet as tolerated Fluids: Tolerating by mouth fluids, 1 L bolus given at maintenance and ER Electrolytes: Within normal limits, continue to monitor Prophylaxis: DuoNeb's when necessary for shortness of breath/wheezing, Tylenol when necessary for pain/fever (5) No contraindication to deep vein thrombosis (DVT) prophylaxis Status: Acute Plan: Heparin drip per protocol for DVT and starting Eliquis for continued anticoagulation SCD/TEDs (Rashad Lucio MD R1) Rashad Lucio MD R1 Sep 20, 2016 14:52 Ivone Mccoy MD Sep 21, 2016 08:22
[2016-09-20] MEDS: HEPARIN-D5W INJ 250 ML IV SCH (16:25)
[2016-09-20] MEDS ORDERED: cloNIDine HCL 0.2 MG TAB PO PRN (19:00)
[2016-09-20 20:14] LABS: APTT (PATIENT) 43.9 SEC (24.3-30.1)
[2016-09-20] MEDS: DIAZEPAM 10 MG TAB PO PRN (21:15)
[2016-09-20] MEDS: PRAVASTATIN SOD 40 MG TAB PO SCH (21:15)
[2016-09-20] MEDS: APIXABAN 5 MG TABLET PO SCH (21:15)
[2016-09-21] VITALS: BP 152/73; PULSE 76; RESP 16; TEMP 98; O2SAT 98
[2016-09-21 04:00] VITALS: BP 163/80; PULSE 88; RESP 20; TEMP 98.3; O2SAT 100
[2016-09-21] MEDS: DIAZEPAM 10 MG TAB PO PRN (04:25)
[2016-09-21] MEDS: HYDROmorphone HCL PF 1 MG/ML VIAL IV PUSH PRN ×4 (05:02→22:11)
[2016-09-21] MEDS: INSULIN ASPART SUPPLEMENTAL SCALE SQ SCH ×4 (06:05→20:46)
[2016-09-21 06:19] LABS: HEMATOCRIT 32.4 % (35.0-46.0); MEAN CELL VOLUME 94.5 FL (80.0-100.0); MEAN CORPUSCULAR HEMOGLOBIN 29.5 PG (27.0-34.0); MEAN CORPUSCULAR HGB CONC 31.3 % (32.0-36.0); PLATELET COUNT 340 TH/MM3 (150-450); RED BLOOD COUNT 3.42 MIL/MM3 (4.00-5.30); RED CELL DISTRIBUTION WIDTH 14.3 % (11.6-17.2); REVIEW FLAG FINAL; WHITE BLOOD COUNT 5.9 TH/MM3 (4.0-11.0)
[2016-09-21 07:01] LABS: BICARBONATE 17.7 MEQ/L (21.0-32.0); POTASSIUM 4.8 MEQ/L (3.5-5.1)
--- NOTE | 2016-09-21 07:25 | HHI.DCPOC ---
Discharge Care Plan Diagnosis: (1) Deep vein thrombosis (DVT) of right lower extremity Goals to Promote Your Health * To prevent worsening of your condition and complications * To maintain your health at the optimal level Directions to Meet Your Goals Take your medications as prescribed Follow your dietary instruction Follow activity as directed Keep your appointments as scheduled Take your immunizations and boosters as scheduled If your symptoms worsen call your PCP, if no PCP go to Urgent Care Center or Emergency Room Smoking is Dangerous to Your Health. Avoid second hand smoke Call the 24-hour hour crisis hotline for domestic abuse at Rashad Lucio MD R1 Sep 21, 2016 07:25
--- NOTE | 2016-09-21 07:27 | HHI.FF ---
Face to Face Verification Diagnosis: (1) Deep vein thrombosis (DVT) of right lower extremity Physical Therapy Order: Evaluate and Treat, Improve ambulation, Strength and gait training Home Health Nursing Order: Medical education Signs/symptoms of disease process Medication education-adverse effect Nursing assessment with vital signs I have seen patient Saskia Darden on 09/21/16. My clinical findings support the need for the requested home health care services because: Ltd mobility - disease progression Patient has SOB Deconditioned w/ increased weakness Med compliance is questionable Impaired cognition/judgement High risk of falls Infection w/ risk of complications I certify that my clinical findings support that this patient is homebound because: Impaired cognitive ability/safety Unsteady gait/balance [id number] bed/chair Rashad Lucio MD R1 Sep 21, 2016 07:27
[2016-09-21 08:00] VITALS: BP 136/82; PULSE 82; RESP 18; TEMP 98.5; O2SAT 99
[2016-09-21] MEDS: SODIUM CHLORIDE 0.9% FLUSH 10 ML FLUSH IV FLUSH SCH ×2 (09:00→20:46)
[2016-09-21] MEDS: PANTOPRAZOLE SOD 40 MG DELAYED RELEASE TAB PO SCH (09:21)
[2016-09-21] MEDS: LACOSAMIDE 50 MG TAB PO SCH (09:21)
[2016-09-21] MEDS: SERTRALINE HCL 50 MG TAB PO SCH (09:21)
[2016-09-21] MEDS: CLOPIDOGREL 75 MG TAB PO SCH (09:21)
[2016-09-21] MEDS: METOPROLOL SUCCINATE 50 MG EXTENDED RELEASE TAB PO SCH ×2 (09:21→20:45)
[2016-09-21] MEDS: APIXABAN 5 MG TABLET PO SCH ×2 (09:22→20:45)
--- NOTE | 2016-09-21 10:24 | HHI.FPPN ---
Subjective Remarks Patient seen and examined this morning. No acute events overnight. Patient hypertensive up to 176/81 that was treated with clonidine which responded appropriately. Patient states that she is back at her baseline and would like to be discharged home today in the medical clearance. Her only complaint this morning is continued pain in her right lower extremity from ankle to her knee related to her fracture and DVT. She states that the pain has significantly decreased since her admission that is tolerable currently. She denies any fevers , chills, shortness of breath, chest pain, NVD, or abdominal pain. (Rashad Lucio MD R1) Objective Vitals Vital Signs Date Time Temp Pulse Resp B/P Pulse Ox O2 Delivery O2 Flow Rate FiO2 09/21/16 08:00 98.5 82 18 136/82 99 09/21/16 04:00 98.3 88 20 163/80 100 09/21/16 04:00 Room Air 09/21/16 00:00 Nasal Cannula 1.00 09/21/16 00:00 98.0 76 16 152/73 98 09/20/16 20:00 98.3 91 16 157/75 100 09/20/16 20:00 Nasal Cannula 1.00 09/20/16 16:55 18 09/20/16 16:00 98.3 81 20 176/81 99 09/20/16 12:00 98.1 74 20 151/69 96 I/O 09/20/16 09/20/16 09/20/16 09/21/16 09/21/16 09/21/16 07:00 15:00 23:00 07:00 15:00 23:00 Intake Total 480 ml 480 ml 58 ml Output Total 1050 ml 950 ml Balance 480 ml -570 ml -892 ml Intake Oral 480 ml 480 ml IV Total 58 ml Output Urine Total 1050 ml 950 ml # Voids 2 3 0 # Bowel Movements 0 0 (Rashad Lucio MD R1) Result Diagram: 09/21/16 0503 09/21/16 0503 Objective Remarks GENERAL: Well-nourished, well-developed patient. No acute distress. SKIN: Warm and dry. No rash. Multiple small ecchymosis on extremities likely secondary to initiation of anticoagulation. HEENT: Atraumatic, normocephalic with EOMI. MMM. No rhinorrhea. No JVD or LAD appreciated. CARDIOVASCULAR: Regular rate and rhythm without obvious murmurs, gallops, or rubs. RESPIRATORY: Clear to auscultation bilaterally with no CRW. No increased work of breathing. GASTROINTESTINAL: Abdomen soft, non-tender, nondistended with positive bowel sounds. No masses or hepatosplenomegaly appreciated. Mild suprapubic tenderness resolved. MUSCULOSKELETAL: No cyanosis or edema. Strength grossly WNL. 2+ pulses in all 4 extremities. Right lower extremity: Medical boot in place from toes to knees. Boot removed to check for sensation and pulses are both intact. Tenderness to palpation of the calf and ankle. Extremity appears swollen compared to left lower extremity without changes in skin or warmth. Sensation and range of motion intact throughout the lower extremity. Popliteal, DP, and PT pulses intact. NEURO/PSYCH: Afocal. Awake, alert, and oriented x3. No gross abnormalities. Normal speech and interaction with examiners. (Rashad Lucio MD R1) A/P Assessment and Plan Ms. Darden is a 76 y/o F with an extensive PMHx presenting with SOB found to have DVT without PE. She will be admitted for medical management of her DVT. Discharge Planning Medical team will plan for discharge home today with home health PT. (Rashad Lucio MD R1) Attending Attestation Patient and her sister were in the room, the told me they felt safe to go home, there is a bedside commode at home, and she has her own walker. Patient seen and examined. Case reviewed and discussed with the resident team. Agree with plan of care as discussed with me and documented in the resident note. (Ivone Mccoy MD) Problem List: (1) Deep vein thrombosis (DVT) of right lower extremity Status: Acute Plan: Patient admitted with RLE DVT without evidence of PE. Patient has had decreased mobility secondary to R ankle fracture secondary to fall. Chest x-ray: No acute disease Right lower extremity Doppler ultrasound: Venous Doppler positive for DVT beginning below the knee and extending to the mid thigh. Pulmonary CTA: Negative for central pulmonary emboli. CBC: H/H 10.1/32.4 BMP: Creatinine improved from 1.27 Hemoccult: Pending Fall precautions Pulse oximetry with nasal cannula when necessary Incentive spirometry with Acapella Medications: Toradol and breathing treatments given in ER Dilaudid 0.2 mg every 4 hours when necessary for pain (pretreat with Zofran 4 mg) Tylenol 500 mg every 6 hours when necessary for pain or fever DuoNeb every 6 hours when necessary for shortness of breath or wheezing Heparin drip per protocol with 80 units per kilogram bolus administered; scheduled for discontinuation on 09/20 at 2100 Start Eliquis 10 mg twice a day for first 7 days followed by maintenance therapy of 5 mg twice a day at discharge; BMP ordered one week after discharge for evaluation of kidney function (2) Creatinine elevation Status: Acute Plan: Patient with elevated creatinine to 1.48. Baseline per chart review approximately less than 1 per 2013. BMP: Creatinine 1.27 Renal ultrasound: Negative renal ultrasound 1 L normal saline at maintenance rate BMP ordered one week after discharge for evaluation of kidney function while on Eliquis (3) Chronic disease Status: Acute Plan: Seizure disordercontinued Vimpat 50 mg daily Diabetes mellitushold metformin, sliding scale insulin per protocol Anxietycontinue Valium 2 mg 3 times a day GERDcontinue Protonix 40 mg daily Hyperlipidemiacontinue pravastatin 40 mg nightly Depressioncontinue sertraline 25 mg daily History TIAcontinue Plavix (4) Nutrition, metabolism, and development symptoms Status: Acute Plan: Diet: Diabetic diet as tolerated Fluids: Tolerating by mouth fluids, 1 L bolus given at maintenance and ER Electrolytes: Within normal limits, continue to monitor Prophylaxis: DuoNeb's when necessary for shortness of breath/wheezing, Tylenol when necessary for pain/fever (5) No contraindication to deep vein thrombosis (DVT) prophylaxis Status: Acute Plan: Heparin drip per protocol for DVT discontinued 09/20. Patient started on Eliquis for discharge. SCD/TEDs (Rashad Lucio MD R1) Rashad Lucio MD R1 Sep 21, 2016 10:24 Ivone Mccoy MD Sep 21, 2016 16:28
--- NOTE | 2016-09-21 10:37 | HHI.DS ---
Rashad Lucio MD R1 09/21/16 1037: Discharge Summary Admission Date Sep 19, 2016 at 12:45 Discharge Date: Sep 22, 2016 Admitting Diagnosis right lower extremity dvt, respiratory distress, anemia, (1) Deep vein thrombosis (DVT) of right lower extremity Diagnosis: Principal Plan: Patient admitted with RLE DVT without evidence of PE. Patient has had decreased mobility secondary to R ankle fracture secondary to fall. Chest x-ray: No acute disease Right lower extremity Doppler ultrasound: Venous Doppler positive for DVT beginning below the knee and extending to the mid thigh. Pulmonary CTA: Negative for central pulmonary emboli. CBC: H/H 10.1/32.4 BMP: Creatinine improved from 1.27 Hemoccult: Pending Fall precautions Pulse oximetry with nasal cannula when necessary Incentive spirometry with Acapella Medications: Toradol and breathing treatments given in ER Dilaudid 0.2 mg every 4 hours when necessary for pain (pretreat with Zofran 4 mg) Tylenol 500 mg every 6 hours when necessary for pain or fever DuoNeb every 6 hours when necessary for shortness of breath or wheezing Heparin drip per protocol with 80 units per kilogram bolus administered; scheduled for discontinuation on 09/20 at 2100 Start Eliquis 10 mg twice a day for first 7 days followed by maintenance therapy of 5 mg twice a day at discharge; BMP ordered one week after discharge for evaluation of kidney function (2) Creatinine elevation Diagnosis: Principal Plan: Patient with elevated creatinine to 1.48. Baseline per chart review approximately less than 1 per 2013. BMP: Creatinine 1.27 Renal ultrasound: Negative renal ultrasound 1 L normal saline at maintenance rate BMP ordered one week after discharge for evaluation of kidney function while on Eliquis (3) Chronic disease Diagnosis: Secondary Plan: Seizure disordercontinued Vimpat 50 mg daily Diabetes mellitushold metformin, sliding scale insulin per protocol Anxietycontinue Valium 2 mg 3 times a day GERDcontinue Protonix 40 mg daily Hyperlipidemiacontinue pravastatin 40 mg nightly Depressioncontinue sertraline 25 mg daily History TIAcontinue Plavix (4) Nutrition, metabolism, and development symptoms Diagnosis: Principal Plan: Diet: Diabetic diet as tolerated Fluids: Tolerating by mouth fluids, 1 L bolus given at maintenance and ER Electrolytes: Within normal limits, continue to monitor Prophylaxis: DuoNeb's when necessary for shortness of breath/wheezing, Tylenol when necessary for pain/fever (5) No contraindication to deep vein thrombosis (DVT) prophylaxis Diagnosis: Principal Plan: Heparin drip per protocol for DVT discontinued 09/20. Patient started on Eliquis for discharge. SCD/TEDs Brief History Ms. Darden is a 76 y/o F with an extensive PMHx presenting with SOB. She states that over the last 2 weeks she has become increasingly short of breath with a nonproductive cough. She denies any fevers, chills, or hemoptysis. Overnight she states that she had a cough all night with shortness of breath resulting her to not sleep. She then decided to come to the ER for further evaluation. She has tried to use her Proair to assist with the SOB however her symptoms have not been relieved. She has been more inactive recently as she recently fractured her ankle and is in a medical boot. She had difficulty ambulating at baseline and requires a walker. She is seen regularly by [facility]. She was recently evaluated by a PA from the service without any complications. She currently lives at home with her adopted sister who assists her with care. CBC/BMP: 09/21/16 0503 09/21/16 0503 Significant Findings Laboratory Tests Test 09/19/16 09/19/16 09/19/16 09/20/16 09:10 14:15 22:00 00:30 Red Blood Count 3.12 MIL/MM3 (4.00-5.30) Hemoglobin 9.4 GM/DL (11.6-15.3) Hematocrit 29.4 % (35.0-46.0) Mean Corpuscular Hemoglobin 31.9 % Concent (32.0-36.0) D-Dimer Quantitative (PE/DVT) 1.74 MG/L FEU (0.00-0.50) Chloride Level 113 MEQ/L (98-107) Carbon Dioxide Level 14.7 MEQ/L (21.0-32.0) Blood Urea Nitrogen 25 MG/DL (7-18) Creatinine 1.48 MG/DL (0.50-1.00) Estimat Glomerular Filtration 34 ML/MIN (>89) Rate Activated Partial 18.7 SEC 110.9 SEC Thromboplast Time (24.3-30.1) (24.3-30.1) Urine Mucus FEW /lpf (OCC) Test 09/20/16 09/20/16 09/20/16 09/21/16 01:12 11:00 19:34 05:03 Red Blood Count 2.84 MIL/MM3 3.42 MIL/MM3 (4.00-5.30) (4.00-5.30) Hemoglobin 8.6 GM/DL 10.1 GM/DL (11.6-15.3) (11.6-15.3) Hematocrit 26.8 % 32.4 % (35.0-46.0) (35.0-46.0) Mean Corpuscular Hemoglobin 31.9 % 31.3 % Concent (32.0-36.0) (32.0-36.0) Lymphocytes (%) (Auto) 44.8 % (9.0-44.0) Monocytes (%) (Auto) 8.6 % (0.0-8.0) Activated Partial 44.9 SEC 41.0 SEC 43.9 SEC Thromboplast Time (24.3-30.1) (24.3-30.1) (24.3-30.1) Chloride Level 114 MEQ/L 108 MEQ/L (98-107) (98-107) Carbon Dioxide Level 20.1 MEQ/L 17.7 MEQ/L (21.0-32.0) (21.0-32.0) Blood Urea Nitrogen 21 MG/DL (7-18) Creatinine 1.20 MG/DL 1.27 MG/DL (0.50-1.00) (0.50-1.00) Estimat Glomerular Filtration 44 ML/MIN (>89) 41 ML/MIN (>89) Rate Calcium Level 8.4 MG/DL (8.5-10.1) PE at Discharge GENERAL: Well-nourished, well-developed patient. No acute distress. SKIN: Warm and dry. No rash. Multiple small ecchymosis on extremities likely secondary to initiation of anticoagulation. HEENT: Atraumatic, normocephalic with EOMI. MMM. No rhinorrhea. No JVD or LAD appreciated. CARDIOVASCULAR: Regular rate and rhythm without obvious murmurs, gallops, or rubs. RESPIRATORY: Clear to auscultation bilaterally with no CRW. No increased work of breathing. GASTROINTESTINAL: Abdomen soft, non-tender, nondistended with positive bowel sounds. No masses or hepatosplenomegaly appreciated. Mild suprapubic tenderness resolved. MUSCULOSKELETAL: No cyanosis or edema. Strength grossly WNL. 2+ pulses in all 4 extremities. Right lower extremity: Medical boot in place from toes to knees. Boot removed to check for sensation and pulses are both intact. Tenderness to palpation of the calf and ankle. Extremity appears swollen compared to left lower extremity without changes in skin or warmth. Sensation and range of motion intact throughout the lower extremity. Popliteal, DP, and PT pulses intact. NEURO/PSYCH: Afocal. Awake, alert, and oriented x3. No gross abnormalities. Normal speech and interaction with examiners. Hospital Course Patient was admitted for right lower extremity DVT. Patient placed on heparin drip per protocol with 80 units per kilogram bolus administered. She was thoroughly monitored with repeat PTT and drip titrated appropriately. Her pain was controlled with Dilaudid 0.2 mg an premedication by Marco without complication. On hospital day 2 she was transitioned off heparin drip and started on Eliquis was 10 mg twice a day. On hospital day 3 she was discharged home with home health nursing and PT orders per PT's evaluation with recommendations. However, her sister, who is her caregiver at home, refused discharge on hospital day three after initially agreeing to discharge with the Medical team earlier in the day. Per Case Management and Nursing staff, her sister needs to arrange an outside extra caregiver to assist both of them before she can be taken home. Discharge to rehabilitation was discussed, however PT recommended home with home health and was initially refused by patient and caregiver. On hospital day 4, after further discussion with staff, the patient and caregiver requested discharge to rehabilitation facility for further monitoring, PT, and assistance with ADLs. She will continue Eliquis 10mg twice a day for a total of 7 days (10 tabs and prescription). She will decrease Eliquis to 5mg twice a day for a minimum of 3 months. A follow up BMP was ordered for 1 week to evaluated kidney function while on Eliquis. She was also advised to follow up with her PCP in 1 week for re-evaluation. Patient reports she will follow up with Dr. Watts for her RLE fracture. Pt Condition on Discharge: Stable Discharge Disposition: Discharge to SNF Discharge Instructions DIET: Follow Instructions for: As Tolerated, No Restrictions Speech Therapy-Diet Recommends: Regular Activities you can perform: Partial Weight Bearing Follow up Referrals: PCP Follow-up - 1 Week New Orders: BASIC METABOLIC PROF - 1 Week New Medications: Apixaban (Eliquis) 5 Mg Tab 5 MG PO BID Please take Eliquis 10mg (2 tablets) twice a day for the first 6 days upon discharge. Then continue Eliquis with 5mg (1 tablet) twice a day for up to 3 months. Blood Clot Prevention #180 Ref 1 TAB Apixaban (Eliquis) 5 Mg Tab 10 MG PO BID Please take Eliquis 10mg (2 tablets) twice a day for the first 6 days upon discharge. Then continue Eliquis with 5mg (1 tablet) twice a day for up to 3 months. #12 TAB Continued Medications: Albuterol 8.5 GM Inh (Proair Hfa 8.5 GM Inh) 90 Mcg/Act Aer 2 PUFF INH Q6H 108 mcg/actuation PRN SHORTNESS OF BREATH #1 Ref 0 INHALER Clopidogrel (Plavix) 75 Mg Tab 75 MG PO DAILY Blood Clot Prevention #30 Ref 0 TAB Diazepam (Valium) 10 Mg Tab 10 MG PO TID PRN ANXIETY Ref 0 TAB Lacosamide (Vimpat) 50 Mg Tab 50 MG PO DAILY Control Seizures #60 Ref 0 TAB Metformin ER (Metformin ER) 1,000 Mg Tatiana 1000 MG PO BID With evening meal Blood Sugar Management #30 Ref 0 TAB Metoprolol Succinate ER 24 HR (Toprol XL) 50 Mg Tab 50 MG PO BID #30 Ref 0 TAB Pantoprazole (Pantoprazole) 40 Mg Tab 40 MG PO DAILY Reflux #30 Ref 0 TAB Pravastatin (Pravachol) 40 Mg Tab 40 MG PO HS Cholesterol Management #30 Ref 0 TAB Sertraline (Sertraline) 25 Mg Tab 25 MG PO DAILY #30 Ref 0 TAB Ivone Mccoy MD 09/22/16 1152: Discharge Summary Discharge Date: Sep 22, 2016 CBC/BMP: 09/21/16 0503 09/21/16 0503 Discharge Instructions Follow up Referrals: PCP Follow-up - 1 Week New Orders: BASIC METABOLIC PROF - 1 Week New Medications: Apixaban (Eliquis) 5 Mg Tab 5 MG PO BID Please take Eliquis 10mg (2 tablets) twice a day for the first 6 days upon discharge. Then continue Eliquis with 5mg (1 tablet) twice a day for up to 3 months. Blood Clot Prevention #180 Ref 1 TAB Apixaban (Eliquis) 5 Mg Tab 10 MG PO BID Please take Eliquis 10mg (2 tablets) twice a day for the first 6 days upon discharge. Then continue Eliquis with 5mg (1 tablet) twice a day for up to 3 months. #12 TAB Continued Medications: Albuterol 8.5 GM Inh (Proair Hfa 8.5 GM Inh) 90 Mcg/Act Aer 2 PUFF INH Q6H 108 mcg/actuation PRN SHORTNESS OF BREATH #1 Ref 0 INHALER Clopidogrel (Plavix) 75 Mg Tab 75 MG PO DAILY Blood Clot Prevention #30 Ref 0 TAB Diazepam (Valium) 10 Mg Tab 10 MG PO TID PRN ANXIETY Ref 0 TAB Lacosamide (Vimpat) 50 Mg Tab 50 MG PO DAILY Control Seizures #60 Ref 0 TAB Metformin ER (Metformin ER) 1,000 Mg Tatiana 1000 MG PO BID With evening meal Blood Sugar Management #30 Ref 0 TAB Metoprolol Succinate ER 24 HR (Toprol XL) 50 Mg Tab 50 MG PO BID #30 Ref 0 TAB Pantoprazole (Pantoprazole) 40 Mg Tab 40 MG PO DAILY Reflux #30 Ref 0 TAB Pravastatin (Pravachol) 40 Mg Tab 40 MG PO HS Cholesterol Management #30 Ref 0 TAB Sertraline (Sertraline) 25 Mg Tab 25 MG PO DAILY #30 Ref 0 TAB Rashad Lucio MD R1 Sep 21, 2016 10:37 Ivone Mccoy MD Sep 22, 2016 11:52
[2016-09-21 12:00] VITALS: BP 158/90; PULSE 119; RESP 20; TEMP 98; O2SAT 98
[2016-09-21] MEDS ORDERED: APIX5TAB PO ×2 (15:06)
[2016-09-21 16:00] VITALS: BP 159/86; PULSE 113; RESP 20; TEMP 97.4; O2SAT 99
[2016-09-21 20:00] VITALS: BP 147/79; PULSE 89; RESP 18; TEMP 98.1; O2SAT 99
[2016-09-21] MEDS: PRAVASTATIN SOD 40 MG TAB PO SCH (20:45)
[2016-09-22] VITALS: BP 158/70; PULSE 83; RESP 18; TEMP 97.9; O2SAT 98
[2016-09-22] MEDS: HYDROmorphone HCL PF 1 MG/ML VIAL IV PUSH PRN ×4 (02:38→14:19)
[2016-09-22 04:00] VITALS: BP 153/77; PULSE 83; RESP 16; TEMP 97.9; O2SAT 99
[2016-09-22] MEDS: INSULIN ASPART SUPPLEMENTAL SCALE SQ SCH ×2 (06:03→11:00)
[2016-09-22 08:00] VITALS: BP 151/83; PULSE 80; RESP 18; TEMP 98.4; O2SAT 99
[2016-09-22] MEDS: APIXABAN 5 MG TABLET PO SCH (08:26)
[2016-09-22] MEDS: LACOSAMIDE 50 MG TAB PO SCH (08:26)
[2016-09-22] MEDS: DIAZEPAM 10 MG TAB PO PRN (08:26)
[2016-09-22] MEDS: METOPROLOL SUCCINATE 50 MG EXTENDED RELEASE TAB PO SCH (08:26)
[2016-09-22] MEDS: SERTRALINE HCL 50 MG TAB PO SCH (08:26)
[2016-09-22] MEDS: CLOPIDOGREL 75 MG TAB PO SCH (08:26)
[2016-09-22] MEDS: SODIUM CHLORIDE 0.9% FLUSH 10 ML FLUSH IV FLUSH SCH (08:26)
[2016-09-22] MEDS: PANTOPRAZOLE SOD 40 MG DELAYED RELEASE TAB PO SCH (08:26)
--- NOTE | 2016-09-22 09:01 | HHI.FPPN ---
Subjective Remarks Patient seen and examined this morning. No acute events with vital signs stable. Patient reports that she discussed with case management and her sister/ caregiver that she is more suited to go to rehabilitation Center as compared to home with home health physical therapy. She says that she feels back to her baseline and is ready to be discharged to rehabilitation facility. She continues to endorse right lower extremity pain related to her ankle fracture. She denies any fevers, chills, shortness of breath, chest pain, NVD, or abdominal pain. (Rashad Lucio MD R1) Objective Vitals Vital Signs Date Time Temp Pulse Resp B/P Pulse Ox O2 Delivery O2 Flow Rate FiO2 09/22/16 04:00 Room Air 09/22/16 04:00 97.9 83 16 153/77 99 09/22/16 00:00 Room Air 09/22/16 00:00 97.9 83 18 158/70 98 09/21/16 20:00 98.1 89 18 147/79 99 09/21/16 20:00 Room Air 09/21/16 16:00 97.4 113 20 159/86 99 09/21/16 12:00 98.0 119 20 158/90 98 I/O 09/21/16 09/21/16 09/21/16 09/22/16 09/22/16 09/22/16 07:00 15:00 23:00 07:00 15:00 23:00 Intake Total 480 ml Output Total 850 ml Balance -370 ml Intake Oral 480 ml Output Urine Total 850 ml # Voids 0 1 2 # Bowel Movements 1 0 1 (Rashad Lucio MD R1) Result Diagram: 09/21/16 0503 09/21/16 0503 Objective Remarks GENERAL: Elderly 76-year-old female lying in bed in no acute distress. SKIN: Warm and dry. No rash. Multiple small ecchymosis on extremities likely secondary to initiation of anticoagulation. HEENT: Atraumatic, normocephalic with EOMI. MMM. No rhinorrhea. No JVD or LAD appreciated. CARDIOVASCULAR: Regular rate and rhythm without obvious murmurs, gallops, or rubs. RESPIRATORY: Clear to auscultation bilaterally with no CRW. No increased work of breathing. GASTROINTESTINAL: Abdomen soft, non-tender, nondistended with positive bowel sounds. No masses or hepatosplenomegaly appreciated. Mild suprapubic tenderness resolved. MUSCULOSKELETAL: No cyanosis or edema. Strength grossly WNL. 2+ pulses in all 4 extremities. Right lower extremity: Medical boot in place from toes to knees. Boot removed to check for sensation and pulses are both intact. Tenderness to palpation of the calf and ankle. Extremity without changes in skin or warmth. Swelling of right lower extremity improved upon admission exam. Sensation and range of motion intact throughout the lower extremity. Popliteal, DP, and PT pulses intact. NEURO/PSYCH: Afocal. Awake, alert, and oriented x3. No gross abnormalities. Normal speech and interaction with examiners. (Rashad Lucio MD R1) A/P Assessment and Plan Ms. Darden is a 76 y/o F with an extensive PMHx presenting with SOB found to have DVT without PE. She will be admitted for medical management of her DVT. Discharge Planning Medical team will plan for discharge to rehabilitation facility. (Rashad Lucio MD R1) Attending Attestation Patient seen and examined. Case reviewed and discussed with the resident team. Agree with plan of care as discussed with me and documented in the resident note. (Ivone Mccoy MD) Problem List: (1) Deep vein thrombosis (DVT) of right lower extremity Status: Acute Plan: Patient admitted with RLE DVT without evidence of PE. Patient has had decreased mobility secondary to R ankle fracture secondary to fall. Chest x-ray: No acute disease Right lower extremity Doppler ultrasound: Venous Doppler positive for DVT beginning below the knee and extending to the mid thigh. Pulmonary CTA: Negative for central pulmonary emboli. CBC: H/H 10.1/32.4 BMP: Creatinine improved from 1.27 Fall precautions Pulse oximetry with nasal cannula when necessary Incentive spirometry with Acapella Medications: Toradol and breathing treatments given in ER Dilaudid 0.2 mg every 4 hours when necessary for pain (pretreat with Zofran 4 mg) Tylenol 500 mg every 6 hours when necessary for pain or fever DuoNeb every 6 hours when necessary for shortness of breath or wheezing Heparin drip per protocol with 80 units per kilogram bolus administered; scheduled for discontinuation on 09/20 at 2100 Start Eliquis 10 mg twice a day for first 7 days followed by maintenance therapy of 5 mg twice a day at discharge; BMP ordered one week after discharge for evaluation of kidney function (2) Creatinine elevation Status: Acute Plan: Patient with elevated creatinine to 1.48. Baseline per chart review approximately less than 1 per 2013. BMP: Creatinine 1.27 Renal ultrasound: Negative renal ultrasound 1 L normal saline at maintenance rate BMP ordered one week after discharge for evaluation of kidney function while on Eliquis (3) Chronic disease Status: Acute Plan: Seizure disordercontinued Vimpat 50 mg daily Diabetes mellitushold metformin, sliding scale insulin per protocol Anxietycontinue Valium 2 mg 3 times a day GERDcontinue Protonix 40 mg daily Hyperlipidemiacontinue pravastatin 40 mg nightly Depressioncontinue sertraline 25 mg daily History TIAcontinue Plavix (4) Nutrition, metabolism, and development symptoms Status: Acute Plan: Diet: Diabetic diet as tolerated Fluids: Tolerating by mouth fluids, 1 L bolus given at maintenance and ER Electrolytes: Within normal limits, continue to monitor Prophylaxis: DuoNeb's when necessary for shortness of breath/wheezing, Tylenol when necessary for pain/fever (5) No contraindication to deep vein thrombosis (DVT) prophylaxis Status: Acute Plan: Heparin drip per protocol for DVT discontinued 09/20. Patient started on Eliquis for discharge. SCD/TEDs (Rashad Lucio MD R1) Rashad Lucio MD R1 Sep 22, 2016 09:01 Ivone Mccoy MD Sep 22, 2016 11:55
[2016-09-22] MEDS ORDERED: APIX5TAB PO (09:02)
[2016-09-22 12:00] VITALS: BP 168/76; PULSE 94; RESP 20; TEMP 98.2; O2SAT 98
== END 2016-09-22 15:25 | DRG 301 ==
LOC: NEPE 08:28 → NEDA 11:55 → OBSVTOIN 12:45 → N04A 15:21
PROVIDERS: ADMIT Family Medicine; ATTEND Family Medicine
DX: I82.411 Acute embolism and thrombosis of right femoral vein (principal); E11.9 Type 2 diabetes mellitus without complications; G40.909 Epilepsy, unspecified, not intractable, without status epilepticus; I10 Essential (primary) hypertension; F32.9 Major depressive disorder, single episode, unspecified; F41.9 Anxiety disorder, unspecified; I82.441 Acute embolism and thrombosis of right tibial vein; M19.90 Unspecified osteoarthritis, unspecified site; E78.5 Hyperlipidemia, unspecified; Z96.651 Presence of right artificial knee joint; K21.9 Gastro-esophageal reflux disease without esophagitis; J42 Unspecified chronic bronchitis; Z86.73 Personal history of transient ischemic attack (TIA), and cerebral infarction without residual deficits; Z91.81 History of falling; Z87.891 Personal history of nicotine dependence; Z85.41 Personal history of malignant neoplasm of cervix uteri; Z79.02 Long term (current) use of antithrombotics/antiplatelets; Z79.84 Long term (current) use of oral hypoglycemic drugs; Z86.12 Personal history of poliomyelitis; S82.891D Other fracture of right lower leg, subsequent encounter for closed fracture with routine healing
CPT/HCPCS: 70450; 71010; 71275; 76775; 80048; 81001; 82550; 82552; 82948; 84484; 85025; 85027; 85379; 85610; 85730; 93971; 94150; 94640; 94664; 94667; 94668; 99285; J1170; J1644; J1815; J1885; J7030; J7613; Q9967

== ENCOUNTER 2016-10-26 08:15 | Emergency (ER) | payer MEDICARE, OTHER ==
[~2016-10-26] VITALS: Ht 165.1 cm; Wt 64.0 kg
[~2016-10-26 08:15] MED LIST changes: +ALBUAER3 INH; +APIX5TAB PO
--- NOTE | 2016-10-26 08:23 | PD ---
HPI Chief Complaint: headache and back pain Time Seen by Provider: 08:23 Travel History International Travel<30 days: No Contact w/Intl Traveler<30days: No Traveled to known affect area: No History of Present Illness HPI 76-year-old female was brought in by EMS when sister called 911. Patient is with her sister and apparently was complaining of headache and back pain. Patient here was very dysarthric and I was having difficult time understanding what she was saying. I was told that patient has chronic pain and is on quite a few pain medications. Vital signs were stable. She was awake and maintaining her respirations. Patient appears much older than her stated age. There was no family member at that time and history was obtained mostly from the paramedics. [facility] Past Medical History Narrative Medical List of her past medical, surgical, social and family history is reviewed from the nursing note. Hx Anticoagulant Therapy: Yes (plavix) Anemia: Yes Arthritis: Yes Anxiety: Yes Depression: Yes Cancer: Yes (CERVICAL CA) High Cholesterol: Yes Chest Pain: No Congestive Heart Failure: No Cerebrovascular Accident: Yes Diabetes: Yes Diminished Hearing: No Gastrointestinal Disorders: Yes (esophageal strictures) GERD: Yes Genitourinary: Yes (incontinent) Headaches: No Hypertension: Yes Immunizations Current: No Migraines: No Seizures: Yes PNEUMOCCOCAL Vaccine (Year): 2 Menopausal: Yes Past Surgical History Appendectomy: Yes Cardiac Surgery: No Cholecystectomy: Yes Ear Surgery: No Endocrine Surgery: Yes Eye Surgery: No Genitourinary Surgery: Yes Gynecologic Surgery: Yes (HYSTERECTOMY,CERVICAL CA REMOVED.) Hysterectomy: No Neurologic Surgery: Yes (C4,C5,C6 PLATE PLACED) Oral Surgery: Yes Thoracic Surgery: No Other Surgery: Yes (LAPAROSCOPIC SP(WRAP STOMACH AROUND ESOPHAGUS TO HELP WITH GERD)) Social History Alcohol Use: No (DENIES) Tobacco Use: No (DENIES) Substance Use: No Allergies-Medications (Allergen,Severity, Reaction): Coded Allergies: Egg Allergy (Verified Allergy, Intermediate, 10/26/16) Flu Vaccine (Verified Allergy, Intermediate, 10/26/16) "ALLERGIC TO EGGS SO I CAN NOT HAVE THE FLU SHOT" Codeine (Verified Allergy, Mild, 10/26/16) Demerol (Verified Allergy, Mild, 10/26/16) Morphine (Verified Allergy, Mild, 10/26/16) Lortab (Verified Adverse Reaction, Mild, HEADACHE, 10/26/16) Comments List of her allergies reviewed from the nursing note. Reported Meds & Prescriptions Reported Meds & Active Scripts Active Eliquis (Apixaban) 5 Mg Tab 10 Mg PO BID Please take Eliquis 10mg (2 tablets) twice a day for the first 6 days upon discharge. Then continue Eliquis with 5mg (1 tablet) twice a day for up to 3 months. Eliquis (Apixaban) 5 Mg Tab 5 Mg PO BID Please take Eliquis 10mg (2 tablets) twice a day for the first 6 days upon discharge. Then continue Eliquis with 5mg (1 tablet) twice a day for up to 3 months. Reported Proair Hfa 8.5 GM Inh (Albuterol Sulfate) 90 Mcg/Act Aer 2 Puff INH Q6H PRN 108 mcg/actuation Metformin ER (Metformin HCl) 1,000 Mg Tatiana 1,000 Mg PO BID With evening meal Vimpat (Lacosamide) 50 Mg Tab 50 Mg PO DAILY Valium (Diazepam) 10 Mg Tab 10 Mg PO TID PRN Plavix (Clopidogrel Bisulfate) 75 Mg Tab 75 Mg PO DAILY Toprol XL (Metoprolol Succinate) 50 Mg Tab 50 Mg PO BID Pantoprazole (Pantoprazole Sodium) 40 Mg Tab 40 Mg PO DAILY Pravachol (Pravastatin) 40 Mg Tab 40 Mg PO HS Sertraline (Sertraline HCl) 25 Mg Tab 25 Mg PO DAILY Narrative Medication List of her home medications reviewed from the nursing note Review of Systems Except as stated in HPI: all other systems reviewed are Neg Physical Exam Narrative GENERAL: Awake, moaning and difficult to understand. Not verbalizing answers appropriately. Elderly but appears older than the stated age SKIN: Focused skin assessment warm/dry. HEAD: Atraumatic. Normocephalic. EYES: Pupils equal and round. No scleral icterus. No injection or drainage. ENT: No nasal bleeding or discharge. Mucous membranes pink and moist. NECK: Trachea midline. No JVD. CARDIOVASCULAR: Regular rate and rhythm. No murmur appreciated. RESPIRATORY: No accessory muscle use. Clear to auscultation. Breath sounds equal bilaterally. GASTROINTESTINAL: Abdomen soft, non-tender, nondistended. Hepatic and splenic margins not palpable. MUSCULOSKELETAL: No obvious deformities. No clubbing. No cyanosis. No edema. Patient was rolled of and back was palpated. No step-offs or contusions. NEUROLOGICAL: Awake and alert. No obvious cranial nerve deficits. Motor grossly within normal limits. Normal speech. PSYCHIATRIC: Appropriate mood and affect; insight and judgment normal. Data Data Last Documented VS Vital Signs Date Time Temp Pulse Resp B/P Pulse Ox O2 Delivery O2 Flow Rate FiO2 10/26/16 08:37 98.4 71 18 155/70 99 Room Air Orders Electrocardiogram (10/26/16:) Ammonia (10/26/16:) Complete Blood Count With Diff (10/26/16:) Comprehensive Metabolic Panel (10/26/16:) Creatine Kinase (Cpk) (10/26/16:) Prothrombin Time / Inr (Pt) (10/26/16:) Troponin I (10/26/16:) Urinalysis - C+S If Indicated (10/26/16:) Lactic Acid Sepsis Protocol (10/26/16:) Blood Culture (10/26/16:) Chest, Single Ap (10/26/16:) Ct Brain W/O Iv Contrast(Rout) (10/26/16:) Blood Glucose (10/26/16:) Ecg Monitoring (10/26/16:) Iv Access Insert/Monitor (10/26/16:) Oximetry (10/26/16 08:) Sodium Chloride 0.9% Flush (Ns Flush) (10/26/16 08:30) Sodium Chlor 0.9% 1000 Ml Inj (Ns 1000 M (10/26/16 08:26) Drug Screen, Random Urine (10/26/16 08:26) Alcohol (Ethanol) (10/26/16 08:26) Tylenol (Acetaminophen) (10/26/16:26) Salicylates (Aspirin) (10/26/16:) Urine Culture (10/26/16 09:05) Labs Laboratory Tests Test 10/26/16 09:05 White Blood Count 6.9 TH/MM3 Red Blood Count 3.12 MIL/MM3 Hemoglobin 9.7 GM/DL Hematocrit 29.0 % Mean Corpuscular Volume 93.0 FL Mean Corpuscular Hemoglobin 31.2 PG Mean Corpuscular Hemoglobin 33.6 % Concent Red Cell Distribution Width 14.2 % Platelet Count 402 TH/MM3 Mean Platelet Volume 7.4 FL Neutrophils (%) (Auto) % Lymphocytes (%) (Auto) % Monocytes (%) (Auto) % Eosinophils (%) (Auto) % Basophils (%) (Auto) % Neutrophils # (Auto) TH/MM3 Lymphocytes # (Auto) TH/MM3 Monocytes # (Auto) TH/MM3 Eosinophils # (Auto) TH/MM3 Basophils # (Auto) TH/MM3 CBC Comment AUTO DIFF Differential Total Cells 100 Counted Neutrophils % (Manual) 59 % Lymphocytes % 28 % Monocytes % 7 % Eosinophils % 6 % Neutrophils # (Manual) 4.1 TH/MM3 Differential Comment FINAL DIFF MANUAL Platelet Estimate NORMAL Platelet Morphology Comment NORMAL Ovalocytes 2+ Prothrombin Time 9.9 SEC Prothromb Time International 0.9 RATIO Ratio Urine Color YELLOW Urine Turbidity CLEAR Urine pH 5.5 Urine Specific [place] 1.015 Urine Protein TRACE mg/dL Urine Glucose (UA) NEG mg/dL Urine Ketones NEG mg/dL Urine Occult Blood NEG Urine Nitrite NEG Urine Bilirubin NEG Urine Urobilinogen LESS THAN 2.0 MG/DL Urine Leukocyte Esterase NEG Urine RBC LESS THAN 1 /hpf Urine WBC LESS THAN 1 /hpf Urine Squamous Epithelial <1 /hpf Cells Urine Bacteria RARE /hpf Urine Hyaline Casts 5 /lpf Urine Mucus FEW /lpf Microscopic Urinalysis Comment CATH-CULTURE IND Sodium Level 138 MEQ/L Potassium Level 4.5 MEQ/L Chloride Level 109 MEQ/L Carbon Dioxide Level 21.3 MEQ/L Anion Gap 8 MEQ/L Blood Urea Nitrogen 17 MG/DL Creatinine 1.52 MG/DL Estimat Glomerular Filtration 33 ML/MIN Rate Random Glucose 101 MG/DL Lactic Acid Level 1.7 mmol/L Calcium Level 8.7 MG/DL Total Bilirubin 0.2 MG/DL Aspartate Amino Transf 20 U/L (AST/SGOT) Alanine Aminotransferase 16 U/L (ALT/SGPT) Alkaline Phosphatase 90 U/L Ammonia 30 MCMOL/L Total Creatine Kinase 76 U/L Troponin I 0.02 NG/ML Total Protein 7.9 GM/DL Albumin 3.6 GM/DL Salicylates Level LESS THAN 1.7 MG/DL Urine Opiates Screen NEG Acetaminophen Level LESS THAN 2.0 MCG/ML Urine Barbiturates Screen NEG Urine Amphetamines Screen NEG Urine Benzodiazepines Screen POS Urine Cocaine Screen NEG Urine Cannabinoids Screen NEG Ethyl Alcohol Level LESS THAN 3 MG/DL MDM Medical Decision Making Medical Screen Exam Complete: Yes Emergency Medical Condition: Yes Medical Record Reviewed: Yes Interpretation(s) Twelve-lead EKG was reviewed by me. Normal sinus rhythm, normal axis, nonspecific ST-T wave changes. Heart rate of 65 bpm. Differential Diagnosis Intracranial bleed, electrolyte abnormalities, chronic pain Narrative Course 10:12 AM blood test results of back and within acceptable limits CT scan of the head and chest x-rays within normal limit as well. At this point I have nothing else to pursue and I'm comfortable discharging this patient home. I was told her sister is coming and she'll take her home. 11:13 AM her sister is here and I just spoke with her. There has been no falls involved. Patient said that she was just recently discharged from a rehabilitation place. I discussed the patient's insurance situation with the ED case management and I was told that patient has Medicare and qualifies rehabilitation only after 3 days of hospitalization. I do not have any reason to admit her at this point. I will order home health care through [id number]. Procedures EKG Prior to Arrival: No Diagnosis Primary Impression: Chronic back pain Qualified Code: M54.9 - Chronic back pain, unspecified back location, unspecified back pain laterality Referrals: Primary Care Physician Additional Instructions: Please return to the ER if the condition worsens or any other new concerns. Otherwise follow-up with your primary care. Med/Other Pt SpecificInfo: No Change to Meds Disposition: 01 DISCHARGE HOME Condition: Stable Tylor Graham MD Oct 26, 2016 08:23
[2016-10-26] MEDS ORDERED: SODIUM CHLOR 0.9% 1000 ML INJ 1,000 ML IV SCH (08:26)
[2016-10-26] MEDS ORDERED: SODIUM CHLORIDE 0.9% FLUSH 5 ML FLUSH IV FLUSH PRN (08:30)
[2016-10-26 08:31] VITALS: BP 155/70; PULSE 68; RESP 18; O2SAT 99
[2016-10-26 08:37] VITALS: BP 155/70; PULSE 69; PULSE 71; RESP 18; TEMP 98.4; O2SAT 99
--- NOTE | 2016-10-26 09:05 | RADRPT ---
EXAM DATE/TIME: 10/26/2016 08:38 [facility] COMPARISON: CHEST SINGLE AP, September 19, 2016, 9:12. INDICATIONS : Headaches MEDICAL HISTORY : Stroke. SURGICAL HISTORY : None. ENCOUNTER: Initial ACUITY: 1 day PAIN SCORE: Non-responsive. LOCATION: Bilateral chest FINDINGS: A single view of the chest demonstrates the lungs to be symmetrically aerated without evidence of mas s, infiltrate or effusion. The cardiomediastinal contours are unremarkable. Osseous structures are intact. CONCLUSION: Normal examination. Wali Rueda MD on October 26, 2016 at 9:04 Board Certified Radiologist. This report was verified electronically.
[2016-10-26 09:37] LABS: BACTERIA, URINE RARE /hpf; BLOOD, URINE NEG (NEG); GLUCOSE,URINE NEG (NEG); HYALINE CAST, URINE 5 /lpf (RARE); KETONE, URINE NEG (NEG); MEAN CORPUSCULAR HEMOGLOBIN 31.2 PG (27.0-34.0); MEAN CORPUSCULAR HGB CONC 33.6 % (32.0-36.0); MUCUS URINE FEW /lpf (OCC); NITRITE,URINE NEG (NEG); PH, URINE 5.5 (5.0-8.5); PLATELET COUNT 402 TH/MM3 (150-450); RED BLOOD COUNT 3.12 MIL/MM3 (4.00-5.30); RED CELL DISTRIBUTION WIDTH 14.2 % (11.6-17.2); SQUAMOUS EPITHELIAL CELL URINE <1 /hpf (0-5); URINE COLOR YELLOW (YELLW/STRAW); WHITE BLOOD COUNT 6.9 TH/MM3 (4.0-11.0)
--- NOTE | 2016-10-26 09:37 | RADRPT ---
EXAM DATE/TIME: 10/26/2016 09:21 [facility] COMPARISON: CT BRAIN W/O CONTRAST, September 19, 2016, 10:00. INDICATIONS : Headache, altered mental status RADIATION DOSE: 56.38 CTDIvol (mGy) MEDICAL HISTORY : Cerebrovascular disease. Diabetes mellitus type 1. Hypertension. SURGICAL HISTORY : Appendectomy. Cholecystectomy. ENCOUNTER: Initial ACUITY: 1 day PAIN SCALE: Non-responsive LOCATION: cranial TECHNIQUE: Multiple contiguous axial images were obtained of the head. Using automated exposure control and adj ustment of the mA and/or kV according to patient size, radiation dose was kept as low as reasonably a chievable to obtain optimal diagnostic quality images. DICOM format image data is available electro nically for review and comparison. FINDINGS: CEREBRUM: The ventricles are normal for age. No evidence of midline shift, mass lesion, hemorrhage or acute in farction. No extra-axial fluid collections are seen. POSTERIOR FOSSA: The cerebellum and brainstem are intact. The 4th ventricle is midline. The cerebellopontine angle i s unremarkable. EXTRACRANIAL: The visualized portion of the orbits is intact. SKULL: The calvaria is intact. No evidence of skull fracture. CONCLUSION: Normal examination. Age-appropriate atrophy Wali Rueda MD on October 26, 2016 at 9:35 Board Certified Radiologist. This report was verified electronically.
[2016-10-26 09:41] LABS: AMPHETAMINE, URINE NEG (NEG); BARBITURATES, URINE NEG (NEG); COCAINE, URINE NEG (NEG); HEMO FLAGS AUTO DIFF; INTERNATIONAL NORMALIZED RATIO 0.9 RATIO
[2016-10-26 09:46] LABS: PROTHROMBIN TIME - PATIENT 9.9 SEC (9.8-11.6)
[2016-10-26 09:47] LABS: COMMENT (UR) CATH-CULTURE IND; CULTURE IF INDICATED CATH CULTURE IND
[2016-10-26 09:51] LABS: ACETAMINOPHEN LESS THAN 2.0 MCG/ML (10.0-30.0); ALT (GPT) 16 U/L (10-53)
[2016-10-26 09:53] LABS: ANION GAP 8 MEQ/L (5-15); AST (GOT) 20 U/L (15-37); BICARBONATE 21.3 MEQ/L (21.0-32.0); BLOOD UREA NITROGEN 17 MG/DL (7-18); CHLORIDE 109 MEQ/L (98-107); GLOMERULAR FILTRATION RATE 33 ML/MIN (>89); SODIUM (NA) 138 MEQ/L (136-145)
[2016-10-26 09:56] LABS: ALKALINE PHOSPHATASE 90 U/L (45-117); CREATINE KINASE 76 U/L (26-192); POTASSIUM 4.5 MEQ/L (3.5-5.1); TOTAL BILIRUBIN ADULT 0.2 MG/DL (0.2-1.0)
[2016-10-26 10:17] LABS: EOSINOPHILS 6 % (0-4); NEUTROPHIL # MANUAL DIFF 4.1 TH/MM3 (1.8-7.7); OVALOCYTES 2+ (NORMAL); POLYS (SEG NEUTROPHILS) 59 % (16-70); WBC DIFF SAMPLE 100
[2016-10-26 10:18] LABS: PLATELET ESTIMATE SMEAR NORMAL (NORMAL); PLATELET MORPHOLOGY NORMAL (NORMAL); SCAN/DIFF FINAL DIFF MANUAL
--- NOTE | 2016-10-26 11:18 | HHI.FF ---
Face to Face Verification Diagnosis: (1) Difficulty walking (2) Chronic pain Physical Therapy Order: Evaluate and Treat, Improve ambulation, Strength and gait training Occupational Therapy Order: Evaluate and Treat, Improve ADL, Gross motor coordination, Fine motor coordination Home Health Nursing Order: Medical education Diabetic education Medication education-adverse effect Nursing assessment with vital signs Home Health Aide Order: To Assist In: Bathing and personal care Supervisor Body Assembly Order: To Evaluate: Support services Order: To Provide: Long range planning, Community services I have seen patient Saskia Darden on 10/26/16. My clinical findings support the need for the requested home health care services because: Patient seems debilitated and her sister who tries to take care of her is frail as well. Patient requires help with strengthening exercises and ADLs. Ltd mobility - disease progression Deconditioned w/ increased weakness Limited ability to care for self High risk of falls I certify that my clinical findings support that this patient is homebound because: Patient seems debilitated and her sister who tries to take care of her is frail as well. Patient requires help with strengthening exercises and ADLs. Unsteady gait/balance [id number] bed/chair Unable to use public transportation Tylor Graham MD Oct 26, 2016 11:18
[2016-10-26 11:52] VITALS: BP 172/74; PULSE 72; RESP 18; O2SAT 99
[2016-10-26 13:39] VITALS: BP 134/60; PULSE 68; RESP 16; O2SAT 99
[2016-10-26 16:49] VITALS: BP 121/65
--- NOTE | 2016-10-26 18:03 | EKG ---
Date Performed: 10/26/2016 Time Performed: 08:52:41 PTAGE: 76 years EKG: Sinus rhythm NON-SPECIFIC ST/T WAVE CHANGES INTERPRETATION BASED ON A DEFAULT AGE OF 40 YEARS PREVIOUS TRACING : 06/09/2016 14.08 Compared to prior tracing no significant change DOCTOR: Jay Shanks Interpretating Date/Time 10/26/2016 18:01:34
== END 2016-10-26 16:52 | disposition home or self-care (01) ==
LOC: NEPE 08:15 → NEDAMB 16:52
DX: M54.9 Dorsalgia, unspecified (principal); G89.29 Other chronic pain; R51 Headache; I10 Essential (primary) hypertension; E11.9 Type 2 diabetes mellitus without complications; E78.00 Pure hypercholesterolemia, unspecified; K21.9 Gastro-esophageal reflux disease without esophagitis; D64.9 Anemia, unspecified; M13.80 Other specified arthritis, unspecified site
CPT/HCPCS: 70450; 71010; 80053; 80307; 81001; 82140; 82550; 83605; 84484; 85007; 85027; 85610; 87040; 87086; 93005; 96360; 99285; J7030

== ENCOUNTER 2017-01-03 05:01 | Inpatient (IN) | payer MEDICARE, OTHER ==
[2017-01-03] VITALS (9 sets, daily range): BP systolic 146–194; BP diastolic 65–81; PULSE 64–79; RESP 16–20; TEMP 96.5–99; O2SAT 97–100
[~2017-01-03] VITALS: Ht 172.7 cm; Wt 66.8 kg
[2017-01-03] MEDS ORDERED: DEXI60CA2 PO (05:24)
[2017-01-03] MEDS ORDERED: PRAV40TA2 PO (05:24)
[2017-01-03] MEDS ORDERED: LACO100 PO (05:24)
[2017-01-03] MEDS ORDERED: BACL10TA PO (05:24)
[2017-01-03 05:59] LABS: AUTOMATED NEUTROPHIL # 7.3 TH/MM3 (1.8-7.7); BASOPHIL # 0.1 TH/MM3 (0-0.2); BASOPHIL % 0.8 % (0.0-2.0); EOSINOPHIL # 0.2 TH/MM3 (0-0.4); EOSINOPHIL % 2.1 % (0.0-4.0); HEMATOCRIT 27.6 % (35.0-46.0); LYMPH % 20.7 % (9.0-44.0); LYMPHOCYTE # 2.2 TH/MM3 (1.0-4.8); MEAN CELL VOLUME 92.2 FL (80.0-100.0); MEAN CORPUSCULAR HGB CONC 32.6 % (32.0-36.0); MONO % 6.8 % (0.0-8.0); NEUT % 69.6 % (16.0-70.0); PLATELET COUNT 348 TH/MM3 (150-450); RED CELL DISTRIBUTION WIDTH 13.5 % (11.6-17.2); WHITE BLOOD COUNT 10.5 TH/MM3 (4.0-11.0)
--- NOTE | 2017-01-03 06:00 | RADRPT ---
EXAM DATE/TIME: 01/03/2017 05:41 [facility] COMPARISON: CT BRAIN W/O CONTRAST, October 26, 2016, 9:21. INDICATIONS : Altered mental status. RADIATION DOSE: 29.92 CTDIvol (mGy) MEDICAL HISTORY : Gastroesophageal reflux disease. Hypertension. Diabetes mellitus type 2.CVA. Cervical cancer. SURGICAL HISTORY : Appendectomy. Cholecystectomy.Cervical fusion. ENCOUNTER: Initial ACUITY: 1 day PAIN SCALE: Non-responsive LOCATION: cranial TECHNIQUE: Multiple contiguous axial images were obtained of the head. Using automated exposure control and adj ustment of the mA and/or kV according to patient size, radiation dose was kept as low as reasonably a chievable to obtain optimal diagnostic quality images. DICOM format image data is available electro nically for review and comparison. FINDINGS: CEREBRUM: The ventricles are normal for age. No evidence of midline shift, mass lesion, hemorrhage or acute in farction. No extra-axial fluid collections are seen. POSTERIOR FOSSA: The cerebellum and brainstem are intact. The 4th ventricle is midline. The cerebellopontine angle i s unremarkable. EXTRACRANIAL: The visualized portion of the orbits is intact. SKULL: The calvaria is intact. No evidence of skull fracture. CONCLUSION: Normal examination. Rc García MD on January 03, 2017 at 5:57 Board Certified Radiologist. This report was verified electronically.
--- NOTE | 2017-01-03 06:06 | RADRPT ---
EXAM DATE/TIME: 01/03/2017 05:46 [facility] COMPARISON: CHEST SINGLE AP, October 26, 2016, 8:38. INDICATIONS : Shortness of breath, weakness MEDICAL HISTORY : Diabetes mellitus type I. Hypertension Cerebrovascular disease. SURGICAL HISTORY : Appendectomy. Cholecystectomy. ENCOUNTER: Initial ACUITY: 1 day PAIN SCORE: Non-responsive. LOCATION: Bilateral chest FINDINGS: A single view of the chest demonstrates the lungs to be symmetrically aerated without evidence of mas s, infiltrate or effusion. The cardiomediastinal contours are unremarkable. Osseous structures are intact. CONCLUSION: 1. No active disease. Rc García MD on January 03, 2017 at 6:00 Board Certified Radiologist. This report was verified electronically.
[2017-01-03 06:10] LABS: HEMO FLAGS AUTO DIFF
[2017-01-03 06:14] LABS: BACTERIA, URINE OCC /hpf; BLOOD, URINE NEG (NEG); COMMENT (UR) CATH-CULTURE IND; CULTURE IF INDICATED CATH CULTURE IND; GLUCOSE,URINE NEG (NEG); HYALINE CAST, URINE 3 /lpf (RARE); KETONE, URINE NEG (NEG); MUCUS URINE FEW /lpf (OCC); NITRITE,URINE NEG (NEG); URINE COLOR YELLOW (YELLW/STRAW)
--- NOTE | 2017-01-03 06:16 | PD ---
HPI Chief Complaint: Altered Mental Status Time Seen by Provider: 05:26 Travel History International Travel<30 days: No Contact w/Intl Traveler<30days: No Traveled to known affect area: No History of Present Illness HPI 76-year-old female was brought in by EMS for altered mental status. Patient was found by her sister with altered mental status tonight at home. Patient's sister states the patient normally awake and alert oriented 3. Patient speaking gibberish and I am unable to understand the patient at this point. Patient had a fall this morning. Patient has history of hypertension, diabetes , CVA, seizure disorder, anemia, esophageal stricture and urinary incontinence. Patient's on Eliquis, Plavix, Valium, metformin and other medications. PFSH Past Medical History Hx Anticoagulant Therapy: Yes (plavix) Anemia: Yes Arthritis: Yes Anxiety: Yes Depression: Yes Cancer: Yes (CERVICAL CA) Cardiovascular Problems: Yes High Cholesterol: Yes Chest Pain: No Congestive Heart Failure: No Cerebrovascular Accident: Yes Diabetes: Yes Patient Takes Glucophage: Yes Diminished Hearing: No Gastrointestinal Disorders: Yes (esophageal strictures) GERD: Yes Genitourinary: Yes (incontinent) Headaches: No Hypertension: Yes Musculoskeletal: Yes (fracture to right ankle ) Immunizations Current: No Migraines: No Seizures: Yes PNEUMOCCOCAL Vaccine (Year): 2 Menopausal: Yes Past Surgical History Appendectomy: Yes Cardiac Surgery: No Cholecystectomy: Yes Ear Surgery: No Endocrine Surgery: Yes Eye Surgery: No Genitourinary Surgery: Yes Gynecologic Surgery: Yes (HYSTERECTOMY,CERVICAL CA REMOVED.) Hysterectomy: No Neurologic Surgery: Yes (C4,C5,C6 PLATE PLACED) Oral Surgery: Yes Thoracic Surgery: No Other Surgery: Yes (LAPAROSCOPIC SP(WRAP STOMACH AROUND ESOPHAGUS TO HELP WITH GERD)) Social History Alcohol Use: No (DENIES) Tobacco Use: No (DENIES) Substance Use: No Allergies-Medications (Allergen,Severity, Reaction): Coded Allergies: Influenza Virus Vaccines (Unverified Allergy, Intermediate, 11/23/16) "ALLERGIC TO EGGS SO I CAN NOT HAVE THE FLU SHOT" egg (Unverified Allergy, Intermediate, 11/23/16) codeine (Unverified Allergy, Mild, 11/23/16) meperidine (Unverified Allergy, Mild, 11/23/16) morphine (Unverified Allergy, Mild, 11/23/16) acetaminophen (Unverified Adverse Reaction, Mild, HEADACHE, 11/23/16) hydrocodone (Unverified Adverse Reaction, Mild, HEADACHE, 11/23/16) Reported Meds & Prescriptions Reported Meds & Active Scripts Active Eliquis (Apixaban) 5 Mg Tab 10 Mg PO BID Please take Eliquis 10mg (2 tablets) twice a day for the first 6 days upon discharge. Then continue Eliquis with 5mg (1 tablet) twice a day for up to 3 months. Eliquis (Apixaban) 5 Mg Tab 5 Mg PO BID Please take Eliquis 10mg (2 tablets) twice a day for the first 6 days upon discharge. Then continue Eliquis with 5mg (1 tablet) twice a day for up to 3 months. Reported Pravastatin 40 Mg Tab 40 Mg PO DAILY Dexilant (Dexlansoprazole) 60 Mg Cap.bp 1 Cap PO DAILY Baclofen 10 Mg Tab 10 Mg PO TID Vimpat (Lacosamide) 100 Mg Tab 100 Mg PO BID Proair Hfa 8.5 GM Inh (Albuterol Sulfate) 90 Mcg/Act Aer 2 Puff INH Q6H PRN 108 mcg/actuation Metformin ER (Metformin HCl) 1,000 Mg Tatiana 1,000 Mg PO BID With evening meal Valium (Diazepam) 10 Mg Tab 10 Mg PO TID PRN Plavix (Clopidogrel Bisulfate) 75 Mg Tab 75 Mg PO DAILY Toprol XL (Metoprolol Succinate) 50 Mg Tab 50 Mg PO BID Pantoprazole (Pantoprazole Sodium) 40 Mg Tab 40 Mg PO DAILY Pravachol (Pravastatin) 40 Mg Tab 40 Mg PO HS Sertraline (Sertraline HCl) 25 Mg Tab 50 Mg PO DAILY Review of Systems ROS Limitations: Altered Mental Status Physical Exam Narrative GENERAL: Well-nourished, well-developed patient. SKIN: Focused skin assessment warm/dry. HEAD: Normocephalic. EYES: No scleral icterus. No injection or drainage. NECK: Supple, trachea midline. No JVD or lymphadenopathy. CARDIOVASCULAR: Regular rate and rhythm without murmurs, gallops, or rubs. RESPIRATORY: Breath sounds equal bilaterally. No accessory muscle use. GASTROINTESTINAL: Abdomen soft, non-tender, nondistended. MUSCULOSKELETAL: No cyanosis, or edema. BACK: Nontender without obvious deformity. No CVA tenderness. Neurologic exam: Patient's lying in bed, open her eyes on command. Patient followed commands by squeezing my hands and moving lower extremity. Patient however speaking gibberish. Deep tendon reflexes 1+ and equal. Negative Babinski. Data Data Last Documented VS Vital Signs Date Time Temp Pulse Resp B/P (MAP) Pulse Ox O2 Delivery O2 Flow Rate FiO2 01/03/17 05:18 77 18 177/81 (113) 100 01/03/17 05:12 Room Air 01/03/17 05:07 98.1 Orders Orders Electrocardiogram (01/03/17 05:26) Complete Blood Count With Diff (01/03/17 05:26) Comprehensive Metabolic Panel (01/03/17 05:26) Creatine Kinase (Cpk) (01/03/17 05:26) Troponin I (01/03/17 05:26) B-Type Natriuretic Peptide (01/03/17 05:26) Prothrombin Time / Inr (Pt) (01/03/17 05:26) Act Partial Throm Time (Ptt) (01/03/17 05:26) Urinalysis - C+S If Indicated (01/03/17 05:26) Thyroid Stimulating Hormone (01/03/17 05:26) Chest, Single Ap (01/03/17 05:26) Ct Brain W/O Iv Contrast(Rout) (01/03/17 05:26) Iv Access Insert/Monitor (01/03/17 05:26) Ecg Monitoring (01/03/17 05:26) Oximetry (01/03/17 05:26) Lactic Acid (01/03/17 06:02) Urine Culture (01/03/17 05:29) Vancomycin Inj (Vancomycin Inj) (01/03/17 07:15) Piperacil-Tazo 3.375 Gm Premix (Zosyn 3. (01/03/17 07:15) Blood Culture (01/03/17 07:12) Labs Laboratory Tests Test 01/03/17 05:29 01/03/17 06:10 01/03/17 06:54 White Blood Count 10.5 TH/MM3 Red Blood Count 3.00 MIL/MM3 Hemoglobin 9.0 GM/DL Hematocrit 27.6 % Mean Corpuscular Volume 92.2 FL Mean Corpuscular Hemoglobin 30.0 PG Mean Corpuscular Hemoglobin Concent 32.6 % Red Cell Distribution Width 13.5 % Platelet Count 348 TH/MM3 Mean Platelet Volume 7.5 FL Neutrophils (%) (Auto) 69.6 % Lymphocytes (%) (Auto) 20.7 % Monocytes (%) (Auto) 6.8 % Eosinophils (%) (Auto) 2.1 % Basophils (%) (Auto) 0.8 % Neutrophils # (Auto) 7.3 TH/MM3 Lymphocytes # (Auto) 2.2 TH/MM3 Monocytes # (Auto) 0.7 TH/MM3 Eosinophils # (Auto) 0.2 TH/MM3 Basophils # (Auto) 0.1 TH/MM3 CBC Comment AUTO DIFF Differential Total Cells Counted 100 Neutrophils % (Manual) 70 % Band Neutrophils % 1 % Lymphocytes % 21 % Monocytes % 5 % Eosinophils % 2 % Neutrophils # (Manual) 7.6 TH/MM3 Myelocytes 1 % Differential Comment FINAL DIFF MANUAL Platelet Estimate NORMAL Platelet Morphology Comment NORMAL Ovalocytes 1+ Acanthocytes OCC Urine Color YELLOW Urine Turbidity CLEAR Urine pH 5.0 Urine Specific [place] 1.016 Urine Protein TRACE mg/dL Urine Glucose (UA) NEG mg/dL Urine Ketones NEG mg/dL Urine Occult Blood NEG Urine Nitrite NEG Urine Bilirubin NEG Urine Urobilinogen LESS THAN 2.0 MG/DL Urine Leukocyte Esterase NEG Urine WBC LESS THAN 1 /hpf Urine Amorphous Sediment RARE Urine Bacteria OCC /hpf Urine Hyaline Casts 3 /lpf Urine Mucus FEW /lpf Microscopic Urinalysis Comment CATH-CULTURE IND Blood Urea Nitrogen 23 MG/DL Creatinine 1.66 MG/DL Random Glucose 193 MG/DL Total Protein 7.6 GM/DL Albumin 3.8 GM/DL Calcium Level 8.5 MG/DL Alkaline Phosphatase 111 U/L Aspartate Amino Transf (AST/SGOT) 15 U/L Alanine Aminotransferase (ALT/SGPT) 16 U/L Total Bilirubin 0.2 MG/DL Sodium Level 137 MEQ/L Potassium Level 4.2 MEQ/L Chloride Level 109 MEQ/L Carbon Dioxide Level 17.5 MEQ/L Anion Gap 11 MEQ/L Estimat Glomerular Filtration Rate 30 ML/MIN Total Creatine Kinase 61 U/L Troponin I LESS THAN 0.02 NG/ML B-Type Natriuretic Peptide 61 PG/ML Thyroid Stimulating Hormone 3rd Gen 4.080 uIU/ML Lactic Acid Level 3.2 mmol/L MDM Medical Decision Making Medical Screen Exam Complete: Yes Emergency Medical Condition: Yes Interpretation(s) 6:14 AM. EKG shows sinus rhythm nonspecific ST-T wave changes. 6:46 AM. Last Impressions Head CT 01/03/17525 Signed Impressions: Service Date/Time: Tuesday, January 03, 2017 05:41 - CONCLUSION: Normal examination. Rc García MD Chest X-Ray 01/03/17525 Signed Impressions: Service Date/Time: Tuesday, January 03, 2017 05:46 - CONCLUSION: 1. No active disease. Rc García MD 6:46 AM. CBC hemoglobin 9.0 hematocrit 27.6. WBC 10.5 with normal differential. Bicarbonate is 17.5. BUN 23. Creatinine 1.66. Cardiac enzymes are normal. TSH 4.08. UA negative for WBC. Positive for bacteria. Lactic acid 3.2. BNP 61. Differential Diagnosis Differential diagnosis including TIA, CVA, dehydration, electrolyte imbalance, medication side effect. Narrative Course 76-year-old female with altered mental status. Normal saline solution 1 25 cc an hour. Vancomycin 1 g IV given. Zosyn 3.375 g IV given. Normal saline solution 1 L IV bolus. Diagnosis Primary Impression: Altered mental status Qualified Codes: R41.82 - Altered mental status, unspecified Admitting Information Admitting Physician Requests: Admit Sanjiv Pan MD Jan 03, 2017 06:16
[2017-01-03 06:22] LABS: ANION GAP 11 MEQ/L (5-15); AST (GOT) 15 U/L (15-37); BICARBONATE 17.5 MEQ/L (21.0-32.0); BLOOD UREA NITROGEN 23 MG/DL (7-18); CHLORIDE 109 MEQ/L (98-107); GLOMERULAR FILTRATION RATE 30 ML/MIN (>89); POTASSIUM 4.2 MEQ/L (3.5-5.1); SODIUM (NA) 137 MEQ/L (136-145)
[2017-01-03 06:23] LABS: ALT (GPT) 16 U/L (10-53)
[2017-01-03 06:32] LABS: ALKALINE PHOSPHATASE 111 U/L (45-117); TOTAL BILIRUBIN ADULT 0.2 MG/DL (0.2-1.0)
[2017-01-03 06:40] LABS: BANDS 1 % (0-6); CREATINE KINASE 61 U/L (26-192); EOSINOPHILS 2 % (0-4); MYELOCYTES 1 % (0-0); NEUTROPHIL # MANUAL DIFF 7.6 TH/MM3 (1.8-7.7); POLYS (SEG NEUTROPHILS) 70 % (16-70); SCAN/DIFF FINAL DIFF MANUAL; WBC DIFF SAMPLE 100
[2017-01-03 06:41] LABS: ACANTHOCYTES OCC (NORMAL); OVALOCYTES 1+ (NORMAL); PLATELET ESTIMATE SMEAR NORMAL (NORMAL); PLATELET MORPHOLOGY NORMAL (NORMAL)
[2017-01-03] MEDS ORDERED: VANCOMYCIN INJ 1,000 MG in SODIUM CHLOR 0.9% 250 ML INJ 250 ML IV ONE (07:15)
[2017-01-03] MEDS ORDERED: PIPERACIL-TAZO 3.375 GM PREMIX 50 ML IV ONE (07:15)
[2017-01-03 07:25] LABS: PROTHROMBIN TIME - PATIENT 10.7 SEC (9.8-11.6)
[2017-01-03 07:26] LABS: APTT (PATIENT) 23.6 SEC (24.3-30.1)
[2017-01-03] MEDS ORDERED: SODIUM CHLOR 0.9% 1000 ML INJ 1,000 ML IV ONE (07:30)
[2017-01-03] MEDS ORDERED: RESP: ALBUTEROL 2.5 MG/IPRATROPIUM 0.5 MG NEB (PRN) NEB (09:15)
[2017-01-03] MEDS ORDERED: SODIUM CHLORIDE 0.9% FLUSH 10 ML FLUSH IV FLUSH PRN (09:15)
[2017-01-03] MEDS ORDERED: NALOXONE HCL 0.4 MG/ML AMP IV PUSH PRN (09:15)
[2017-01-03] MEDS ORDERED: HEPARIN SODIUM - SQ 10,000 UNITS/ML VIAL SQ SCH (09:15)
[2017-01-03 09:50] LABS: BLOOD GAS BASE EXCESS -6.9 mmol/L (-2-2); BLOOD GAS CARBOXYHEMOGLOBIN 1.1 % (0-4); BLOOD GAS HCO3 18 mmol/L (22-26); BLOOD GAS METHEMOGLOBIN 0.4 % (0-2); BLOOD GAS O2 HGB SATURATION 96 % (90-100); BLOOD GAS OXYGEN CONTENT 12.1 Vol % (12.0-20.0); BLOOD GAS PCO2 37 mmHg (38-42); BLOOD GAS PO2 100 mmHG (61-120); BLOOD GAS TOTAL HGB 8.8 G/DL (12.0-16.0); CRITICAL VALUE NO; DRAW SITE LT RADIAL; FIO2 21 %; NUMBER OF ARTERIAL PUNCTURES 1; STAT YES; TEMP CORR TO 98.6; ULNAR PULSE PRESENT
[2017-01-03] MEDS ORDERED: LACOSAMIDE 100 MG TAB PO SCH (10:00)
[2017-01-03] MEDS: APIXABAN 5 MG TABLET PO SCH ×2 (10:00→21:19)
[2017-01-03] MEDS: CLOPIDOGREL 75 MG TAB PO SCH (10:23)
[2017-01-03] MEDS: METOPROLOL SUCCINATE 50 MG EXTENDED RELEASE TAB PO SCH ×2 (10:24→21:18)
[2017-01-03] MEDS: ACETAMINOPHEN 325 MG TAB PO PRN ×2 (10:25→21:35)
[2017-01-03] MEDS: SODIUM CHLOR 0.9% 1000 ML INJ 1,000 ML IV SCH ×2 (12:58→21:22)
--- NOTE | 2017-01-03 13:18 | HHI.HP ---
[facility] Non[facility]Staff Admission Diagnosis altered mental status. Acute kidney injury Diagnoses: Chief Complaint: Confusion Travel History International Travel<30 Days: No Contact w/Intl Traveler <30 Da: No Traveled to Known Affected Are: No History of Present Illness The patient is a 76-year-old female with a past medical history of CVA and polio who is presenting to the hospital with altered mental status. 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 Apparently the patient missed her morning medications yesterday and doubled up on her medications in the evening. After that the patient was found to be lethargic and her sister tried to track her out of bed and the patient fell on top of her sister. They both sustained some abrasions from the fall. The patient's sister does believe that doubling up on the medications caused her sisters confusion. The patient is complaining of urinating a lot but otherwise is unable to describe the circumstances leading to her hospitalization. She does endorse some vague aches and pains. She denies any diarrhea or fever. She did endorse some abdominal pain in her right lower abdomen. She was unable to be more specific. The patient's sister states that the patient Discussed with her sister over the phone, who helped with the history. Review of Systems ROS Limitations: Clinical Condition, Altered Mental Status, Poor Historian Except as stated in HPI: all other systems reviewed are Neg Past Family Social History Past Medical History Anemia OA Anxiety/depression Cervical cancer DM Hyperlipidemia CVA Diabetes mellitus Esophageal stricture GERD Incontinence Seizures Chronic bronchitis Hx of polio Past Surgical History Appendectomy Cholecystectomy Hysterectomy with cervical cancer. C4-C6 plate placed Laparoscopic Hernandez procedure Oral surgery R knee replacement Allergies: Coded Allergies: Influenza Virus Vaccines (Unverified Allergy, Intermediate, 11/23/16) "ALLERGIC TO EGGS SO I CAN NOT HAVE THE FLU SHOT" egg (Unverified Allergy, Intermediate, 11/23/16) codeine (Unverified Allergy, Mild, 11/23/16) meperidine (Unverified Allergy, Mild, 11/23/16) morphine (Unverified Allergy, Mild, 11/23/16) acetaminophen (Unverified Adverse Reaction, Mild, HEADACHE, 11/23/16) hydrocodone (Unverified Adverse Reaction, Mild, HEADACHE, 11/23/16) Active Ordered Medications Current Medications Medications (Trade) Dose Ordered Sig/Georgie Route Start Time Stop Time Status Last Admin Sodium Chloride 1,000 ml @ 100 mls/hr Q10H IV 01/03/17 09:02 01/03/17 12:58 (NS Flush) 2 ml UNSCH PRN IV FLUSH 01/03/17 09:15 (NS Flush) 2 ml BID IV FLUSH 01/03/17 21:00 (Tylenol) 650 mg Q4H PRN PO 01/03/17 09:15 01/03/17 10:25 (Tylenol) 650 mg Q6H PRN PO 01/03/17 09:15 (Narcan Inj) 0.4 mg UNSCH PRN IV PUSH 01/03/17 09:15 (Jenn-Colace) 1 tab BID PO 01/03/17 21:00 (Eliquis) 5 mg BID PO 01/03/17 10:00 (Plavix) 75 mg DAILY PO 01/03/17 10:00 01/03/17 10:23 (Vimpat) 100 mg BID PO 01/03/17 10:00 (Toprol Xl) 50 mg BID PO 01/03/17 10:00 01/03/17 10:24 (Protonix) 40 mg DAILY PO 01/04/17 09:00 (Pravachol) 40 mg HS PO 01/03/17 21:00 (Zoloft) 50 mg DAILY PO 01/04/17 09:00 (Duoneb Neb) 1 ampule Q2HR NEB PRN NEB 01/03/17 09:15 (Ativan) 0.5 mg Q6H PRN PO 01/03/17 09:15 Family History The pt was adopted Social History The patient does not smoke or drink Physical Exam Vital Signs Vital Signs Date Time Temp Pulse Resp B/P (MAP) Pulse Ox O2 Delivery O2 Flow Rate FiO2 01/03/17 12:05 98.3 64 20 152/69 (96) 98 01/03/17 11:01 01/03/17 09:43 99 21 01/03/17 08:36 65 146/65 (92) 100 Room Air 01/03/17 07:51 97 Room Air 01/03/17 07:51 177/71 (106) 01/03/17 05:18 77 18 177/81 (113) 100 01/03/17 05:12 66 18 100 Room Air 01/03/17 05:07 98.1 79 18 194/79 (117) 100 Physical Exam GENERAL: Well-nourished, well-developed patient. SKIN: Focused skin assessment warm/dry. HEAD: Normocephalic. EYES: No scleral icterus. No injection or drainage. NECK: Supple, trachea midline. No JVD or lymphadenopathy. CARDIOVASCULAR: Regular rate and rhythm without murmurs, gallops, or rubs. RESPIRATORY: Breath sounds equal bilaterally. No accessory muscle use. GASTROINTESTINAL: Abdomen soft, slightly tender in the right lower quadrant. MUSCULOSKELETAL: No cyanosis, or edema. BACK: Nontender without obvious deformity. No CVA tenderness. NEURO: Patient follows commands. Seems confused. Deep tendon reflexes 1+ and equal. Negative Babinski. PSYCH: Calm. Laboratory Laboratory Tests Test 01/03/17 05:29 01/03/17 06:10 01/03/17 06:54 01/03/17 09:35 White Blood Count 10.5 Red Blood Count 3.00 Hemoglobin 9.0 Hematocrit 27.6 Mean Corpuscular Volume 92.2 Mean Corpuscular Hemoglobin 30.0 Mean Corpuscular Hemoglobin Concent 32.6 Red Cell Distribution Width 13.5 Platelet Count 348 Mean Platelet Volume 7.5 Neutrophils (%) (Auto) 69.6 Lymphocytes (%) (Auto) 20.7 Monocytes (%) (Auto) 6.8 Eosinophils (%) (Auto) 2.1 Basophils (%) (Auto) 0.8 Neutrophils # (Auto) 7.3 Lymphocytes # (Auto) 2.2 Monocytes # (Auto) 0.7 Eosinophils # (Auto) 0.2 Basophils # (Auto) 0.1 CBC Comment AUTO DIFF Differential Total Cells Counted 100 Neutrophils % (Manual) 70 Band Neutrophils % 1 Lymphocytes % 21 Monocytes % 5 Eosinophils % 2 Neutrophils # (Manual) 7.6 Myelocytes 1 Differential Comment FINAL DIFF MANUAL Platelet Estimate NORMAL Platelet Morphology Comment NORMAL Ovalocytes 1+ Acanthocytes OCC Urine Color YELLOW Urine Turbidity CLEAR Urine pH 5.0 Urine Specific [place] 1.016 Urine Protein TRACE Urine Glucose (UA) NEG Urine Ketones NEG Urine Occult Blood NEG Urine Nitrite NEG Urine Bilirubin NEG Urine Urobilinogen LESS THAN 2.0 Urine Leukocyte Esterase NEG Urine WBC LESS THAN 1 Urine Amorphous Sediment RARE Urine Bacteria OCC Urine Hyaline Casts 3 Urine Mucus FEW Microscopic Urinalysis Comment CATH-CULTURE IND Blood Urea Nitrogen 23 Creatinine 1.66 Random Glucose 193 Total Protein 7.6 Albumin 3.8 Calcium Level 8.5 Alkaline Phosphatase 111 Aspartate Amino Transf (AST/SGOT) 15 Alanine Aminotransferase (ALT/SGPT) 16 Total Bilirubin 0.2 Sodium Level 137 Potassium Level 4.2 Chloride Level 109 Carbon Dioxide Level 17.5 Anion Gap 11 Estimat Glomerular Filtration Rate 30 Total Creatine Kinase 61 Troponin I LESS THAN 0.02 B-Type Natriuretic Peptide 61 Thyroid Stimulating Hormone 3rd Gen 4.080 Lactic Acid Level 3.2 Prothrombin Time 10.7 Prothromb Time International Ratio 1.0 Activated Partial Thromboplast Time 23.6 Blood Gas Puncture Site LT RADIAL Blood Gas Patient Temperature 98.6 Blood Gas HCO3 18 Blood Gas Base Excess -6.9 Blood Gas Oxygen Saturation 96 Arterial Blood pH 7.31 Arterial Blood Partial Pressure CO2 37 Arterial Blood Partial Pressure O2 100 Arterial Blood Oxygen Content 12.1 Arterial Blood Carboxyhemoglobin 1.1 Arterial Blood Methemoglobin 0.4 Blood Gas Hemoglobin 8.8 Blood Gas Inspired Oxygen 21 Date/Time Source Procedure Growth Status 01/03/17 07:20 Blood Peripheral Aerobic Blood Culture Pending Received 01/03/17 07:20 Blood Peripheral Anaerobic Blood Culture Pending Received 01/03/17 05:29 Urine Catheterized Urine Urine Culture Pending Received Result Diagram: 01/03/1752801/03/17528 Imaging Last Impressions Head CT 01/03/17525 Signed Impressions: Service Date/Time: Tuesday, January 03, 2017 05:41 - CONCLUSION: Normal examination. Rc García MD Chest X-Ray 01/03/17525 Signed Impressions: Service Date/Time: Tuesday, January 03, 2017 05:46 - CONCLUSION: 1. No active disease. MD Juan Hernandezi VTE Risk Assessment Gideon VTE Risk Assessment: Mod/High Risk (score >= 2) Caprini Risk Assessment Model Point Value = 1 Point Value = 2 Point Value = 3 Point Value = 5 Age 41-60 Minor surgery BMI > 25 kg/m2 Swollen legs Varicose veins or History of unexplained or recurrent spontaneous Oral contraceptives or hormone replacement Sepsis (< 1 month) Serious lung disease, including pneumonia (< 1 month) Abnormal pulmonary function Acute myocardial infarction Congestive heart failure (< 1 month) History of inflammatory bowel disease Medical patient at bed rest Age 61-74 Arthroscopic surgery Major open surgery (> 45 min) Laparoscopic surgery (> 45 min) Malignancy Confined to bed (> 72 hours) Immobilizing plaster cast Central venous access Age >= 75 History of VTE Family history of VTE Factor V Leiden Prothrombin [id number] Lupus anticoagulant Anticardiolipin antibodies Elevated serum homocysteine Heparin-induced thrombocytopenia Other congenital or acquired thrombophilia Stroke (< 1 month) Elective arthroplasty Hip, pelvis, or leg fracture Acute spinal cord injury (< 1 month) Prophylaxis Regimen Total Risk Factor Score Risk Level Prophylaxis Regimen 0-1 Low Early ambulation 2 Moderate Order ONE of the following: *Sequential Compression Device (SCD) *Heparin 5000 units SQ BID 3-4 Higher Order ONE of the following medications: *Heparin 5000 units SQ TID *Enoxaparin/Lovenox 40 mg SQ daily (WT < 150 kg, CrCl > 30 mL/min) *Enoxaparin/Lovenox 30 mg SQ daily (WT < 150 kg, CrCl > 10-29 mL/min) *Enoxaparin/Lovenox 30 mg SQ BID (WT < 150 kg, CrCl > 30 mL/min) AND/OR *Sequential Compression Device (SCD) 5 or more Highest Order ONE of the following medications: *Heparin 5000 units SQ TID (Preferred with Epidurals) *Enoxaparin/Lovenox 40 mg SQ daily (WT < 150 kg, CrCl > 30 mL/min) *Enoxaparin/Lovenox 30 mg SQ daily (WT < 150 kg, CrCl > 10-29 mL/min) *Enoxaparin/Lovenox 30 mg SQ BID (WT < 150 kg, CrCl > 30 mL/min) AND *Sequential Compression Device (SCD) Assessment and Plan Assessment and Plan Acute metabolic encephalopathy Seems to be secondary to doubling up on the patient's medications. She is on high doses of Valium, which her sister states she takes once every few days. She did have an elevated lactic acid level. No source of infection was identified. ABG noted. TSH slightly elevated. UA indicative of possible infection. Status post vancomycin and Zosyn in the emergency department. - Continue IV fluids. - Neuro checks. - Avoid sedating medications. - PT/ OT. - Case management consult requested. - Check an ammonia level. - Continue ceftriaxone for now. Abdominal pain Right lower quadrant pain elicited on examination. - CT of the abdomen is pending. Renal insufficiency Acute on chronic. - Continue with IV fluids. - Avoid nephrotoxic agents. GERD The patient has a long history of GERD and once required a feeding tube. - Continue PPI. Diabetes On metformin as an outpatient. - Hold metformin. - Insulin sliding scale and diabetic diet. PPx: Heparin Discussed Condition With Pt, pt's sister, Alvaro Moon DO Jan 03, 2017 13:18
[2017-01-03] MEDS ORDERED: DEXTROSE 50% IN WATER 50 ML SYRINGE IV PUSH PRN (13:45)
[2017-01-03] MEDS ORDERED: GLUCAGON 1 MG/ML VIAL OTHER PRN (13:45)
--- NOTE | 2017-01-03 13:59 | EKG ---
Date Performed: 01/03/2017 Time Performed: 05:56:36 PTAGE: 76 years EKG: Sinus rhythm WITH SINUS ARRHYTHMIA NORMAL ECG Compared to prior tracing no significant change PREVIOUS TRACING : 10/26/2016 08.52 DOCTOR: Kareem Montiel Interpretating Date/Time 01/03/2017 13:58:28
[2017-01-03] MEDS ORDERED: DIATRIZOATE MEGLUM/DIATRIZOATE SOD 9 ML CUP PO ONE (14:15)
[2017-01-03] MEDS: INSULIN ASPART SUPPLEMENTAL SCALE SQ SCH ×2 (17:00→21:00)
--- NOTE | 2017-01-03 17:18 | RADRPT ---
EXAM DATE/TIME: 01/03/2017 16:56 [facility] COMPARISON: No previous studies available for comparison. INDICATIONS : Right elbow pain and skin tears post fall. MEDICAL HISTORY : Diabetes mellitus type I. Hypertension Cerebrovascular disease. SURGICAL HISTORY : Appendectomy. Cholecystectomy. ENCOUNTER: Initial ACUITY: 1 day PAIN SCORE: 8/10 LOCATION: Right elbow. FINDINGS: Multiple view examination of the right elbow demonstrates no soft tissue swelling, joint effusion, or fracture. The osseous structures are in normal alignment. Bony mineralization is normal. CONCLUSION: No acute disease. Jonn Espitia MD on January 03, 2017 at 17:16 Board Certified Radiologist. This report was verified electronically.
--- NOTE | 2017-01-03 17:30 | RADRPT ---
EXAM DATE/TIME: 01/03/2017 17:16 [facility] COMPARISON: No previous studies available for comparison. INDICATIONS : Patient complains of abdominal pain. ORAL CONTRAST: Prescribed oral contrast ingested. RADIATION DOSE: 13.23 CTDIvol (mGy) MEDICAL HISTORY : Cardiovascular disease. Diabetes mellitus type 1. Osteoarthritis.polio, cervical cancer SURGICAL HISTORY : Appendectomy. Hysterectomy.Cholecystectomy. ENCOUNTER: Initial ACUITY: 1 day PAIN SCALE: 5/10 LOCATION: abdomen TECHNIQUE: Volumetric scanning of the abdomen and pelvis was performed. Using automated exposure control and ad justment of the mA and/or kV according to patient size, radiation dose was kept as low as reasonably achievable to obtain optimal diagnostic quality images. DICOM format image data is available electro nically for review and comparison. FINDINGS: Small pericardial effusion. Cholecystectomy clips are noted. Liver, spleen, pancreas, adrenal glands, kidneys are unremarkable. Urinary bladder unremarkable. The patient is status post hysterectomy. The re is no evidence of bowel obstruction. No free fluid or free air. No adenopathy or aneurysm. Scatter ed atherosclerotic calcifications are identified. The patient is status post appendectomy. Lung bases are clear. There are degenerative changes of the spine noted postlaminectomy changes are seen in the lower lumbar spine at L3. CONCLUSION: 1. Small pericardial effusion. 2. Atherosclerosis. 3. No inflammatory changes are identified. Jonn Espitia MD on January 03, 2017 at 17:27 Board Certified Radiologist. This report was verified electronically.
[2017-01-03] MEDS: SODIUM CHLORIDE 0.9% FLUSH 10 ML FLUSH IV FLUSH SCH (21:00)
[2017-01-03] MEDS: PRAVASTATIN SOD 40 MG TAB PO SCH (21:18)
[2017-01-03] MEDS: DOCUSATE SODIUM 50 MG/SENNA 8.6 MG TAB PO SCH (21:18)
[2017-01-04] VITALS (8 sets, daily range): BP systolic 147–179; BP diastolic 67–79; PULSE 67–93; RESP 16–18; TEMP 98–98.5; O2SAT 94–100
[2017-01-04] MEDS: SODIUM CHLOR 0.9% 1000 ML INJ 1,000 ML IV SCH ×4 (05:02→21:00)
[2017-01-04 05:25] LABS: HEMATOCRIT 28.8 % (35.0-46.0); MEAN CELL VOLUME 91.4 FL (80.0-100.0); MEAN CORPUSCULAR HEMOGLOBIN 29.2 PG (27.0-34.0); MEAN CORPUSCULAR HGB CONC 31.9 % (32.0-36.0); PLATELET COUNT 365 TH/MM3 (150-450); RED BLOOD COUNT 3.15 MIL/MM3 (4.00-5.30); RED CELL DISTRIBUTION WIDTH 13.6 % (11.6-17.2); WHITE BLOOD COUNT 6.5 TH/MM3 (4.0-11.0)
[2017-01-04 05:32] LABS: HEMO FLAGS AUTO DIFF
[2017-01-04 05:35] LABS: ANION GAP 8 MEQ/L (5-15); AST (GOT) 13 U/L (15-37); BICARBONATE 19.8 MEQ/L (21.0-32.0); BLOOD UREA NITROGEN 13 MG/DL (7-18); CHLORIDE 115 MEQ/L (98-107); GLOMERULAR FILTRATION RATE 43 ML/MIN (>89); SODIUM (NA) 143 MEQ/L (136-145)
[2017-01-04 05:38] LABS: ALKALINE PHOSPHATASE 113 U/L (45-117); ALT (GPT) 9 U/L (10-53); TOTAL BILIRUBIN ADULT 0.2 MG/DL (0.2-1.0)
[2017-01-04 06:45] LABS: EOSINOPHILS 7 % (0-4); NEUTROPHIL # MANUAL DIFF 3.8 TH/MM3 (1.8-7.7); OVALOCYTES 1+ (NORMAL); PLATELET ESTIMATE SMEAR NORMAL (NORMAL); PLATELET MORPHOLOGY NORMAL (NORMAL); POLYS (SEG NEUTROPHILS) 58 % (16-70); SCAN/DIFF FINAL DIFF MANUAL; WBC DIFF SAMPLE 100
[2017-01-04] MEDS: INSULIN ASPART SUPPLEMENTAL SCALE SQ SCH ×4 (08:00→21:00)
[2017-01-04] MEDS: SODIUM CHLORIDE 0.9% FLUSH 10 ML FLUSH IV FLUSH SCH ×2 (09:00→21:00)
[2017-01-04] MEDS: SERTRALINE HCL 50 MG TAB PO SCH (09:26)
[2017-01-04] MEDS: cefTRIAXone INJ 1,000 MG in SODIUM CHLORIDE 0.9% INJ 100 ML IV SCH (09:26)
[2017-01-04] MEDS: CLOPIDOGREL 75 MG TAB PO SCH (09:27)
[2017-01-04] MEDS: METOPROLOL SUCCINATE 50 MG EXTENDED RELEASE TAB PO SCH ×2 (09:28→21:00)
[2017-01-04] MEDS: DOCUSATE SODIUM 50 MG/SENNA 8.6 MG TAB PO SCH ×2 (09:28→21:00)
[2017-01-04] MEDS: LACOSAMIDE 50 MG TAB PO SCH (09:28)
[2017-01-04] MEDS: PANTOPRAZOLE SOD 40 MG DELAYED RELEASE TAB PO SCH (09:28)
[2017-01-04] MEDS: APIXABAN 5 MG TABLET PO SCH ×2 (09:28→21:00)
[2017-01-04] MEDS: ACETAMINOPHEN 325 MG TAB PO PRN ×3 (10:00→17:33)
[2017-01-04] MEDS ORDERED: Vancomycin Consult Pharmacy 1 EA OTHER SCH (10:15)
[2017-01-04] MEDS ORDERED: VANCOMYCIN INJ 1,000 MG in SODIUM CHLOR 0.9% 250 ML INJ 250 ML IV ONE (12:00)
[2017-01-04] MEDS: VANCOMYCIN INJ 1,250 MG in SODIUM CHLOR 0.9% 250 ML INJ 250 ML IV SCH (13:05)
--- NOTE | 2017-01-04 13:44 | HHI.PR ---
Subjective Remarks The pt doesn't think that she took too many medications prior to arrival. She complains of significant right shoulder pain. She also had right elbow pain. She denied any fever. Discussed with nursing at the bedside. Objective Vitals Vital Signs Date Time Temp Pulse Resp B/P (MAP) Pulse Ox O2 Delivery O2 Flow Rate FiO2 01/04/17 11:31 98.1 78 18 179/79 (112) 100 01/04/17 08:02 98.5 76 16 165/77 (106) 99 01/04/17 07:45 98 21 01/04/17 04:25 98.3 71 18 147/70 (95) 100 01/04/17 00:29 98.5 67 18 156/68 (97) 98 01/03/17 22:35 12 01/03/17 20:17 99 01/03/17 19:49 96.5 77 16 161/73 (102) 99 01/03/17 18:03 99.0 66 20 159/72 (101) 100 I/O 01/03/17 01/03/17 01/03/17 01/04/17 01/04/17 01/04/17 07:00 15:00 23:00 07:00 15:00 23:00 Intake Total 1000 ml 240 ml 1100 ml Balance 1000 ml 240 ml 1100 ml Intake Oral 240 ml IV Total 1000 ml 1100 ml # Voids 5 Result Diagram: 01/04/17 0506 01/04/17 0506 Imaging Last Impressions Head CT 01/03/17525 Signed Impressions: Service Date/Time: Tuesday, January 03, 2017 05:41 - CONCLUSION: Normal examination. Rc García MD Chest X-Ray 01/03/17525 Signed Impressions: Service Date/Time: Tuesday, January 03, 2017 05:46 - CONCLUSION: 1. No active disease. Rc García MD Elbow X-Ray 01/03/17 0000 Signed Impressions: Service Date/Time: Tuesday, January 03, 2017 16:56 - CONCLUSION: No acute disease. Jonn Espitia MD Abdomen/Pelvis CT 01/03/17 0000 Signed Impressions: Service Date/Time: Tuesday, January 03, 2017 17:16 - CONCLUSION: 1. Small pericardial effusion. 2. Atherosclerosis. 3. No inflammatory changes are identified. Jonn Espitia MD Objective Remarks GENERAL: Well-nourished, well-developed patient. SKIN: Focused skin assessment warm/dry. HEAD: Normocephalic. EYES: No scleral icterus. No injection or drainage. NECK: Supple, trachea midline. No JVD or lymphadenopathy. CARDIOVASCULAR: Regular rate and rhythm without murmurs, gallops, or rubs. RESPIRATORY: Breath sounds equal bilaterally. No accessory muscle use. GASTROINTESTINAL: Abdomen soft, slightly tender in the right lower quadrant. MUSCULOSKELETAL: No cyanosis, or edema. BACK: Nontender without obvious deformity. No CVA tenderness. NEURO: Patient follows commands. Awake and alert. PSYCH: Mood and affect appropriate. Procedures None Medications and IVs Current Medications Medications (Trade) Dose Ordered Sig/Georgie Route Start Time Stop Time Status Last Admin Sodium Chloride 1,000 ml @ 100 mls/hr Q10H IV 01/03/17 09:02 01/04/17 09:29 (NS Flush) 2 ml UNSCH PRN IV FLUSH 01/03/17 09:15 (NS Flush) 2 ml BID IV FLUSH 01/03/17 21:00 (Tylenol) 650 mg Q4H PRN PO 01/03/17 09:15 01/04/17 13:13 (Tylenol) 650 mg Q6H PRN PO 01/03/17 09:15 01/04/17 10:00 (Narcan Inj) 0.4 mg UNSCH PRN IV PUSH 01/03/17 09:15 (Jenn-Colace) 1 tab BID PO 01/03/17 21:00 01/04/17 09:28 (Eliquis) 5 mg BID PO 01/03/17 10:00 01/04/17 09:28 (Plavix) 75 mg DAILY PO 01/03/17 10:00 01/04/17 09:27 (Toprol Xl) 50 mg BID PO 01/03/17 10:00 01/04/17 09:28 (Protonix) 40 mg DAILY PO 01/04/17 09:00 01/04/17 09:28 (Pravachol) 40 mg HS PO 01/03/17 21:00 01/03/17 21:18 (Zoloft) 50 mg DAILY PO 01/04/17 09:00 01/04/17 09:26 (Duoneb Neb) 1 ampule Q2HR NEB PRN NEB 01/03/17 09:15 (Ativan) 0.5 mg Q6H PRN PO 01/03/17 09:15 (Vimpat) 50 mg DAILY PO 01/04/17 09:00 01/04/17 09:28 (NovoLOG SUPPLEMENTAL SCALE) 1 ACHS SLIDING SCALE SQ 01/03/17 17:00 Ceftriaxone Sodium 1000 mg/ Sodium Chloride 100 ml @ 200 mls/hr Q24H IV 01/04/17 09:00 01/04/17 09:26 (D50w (Syr) Inj) 50 ml UNSCH PRN IV PUSH 01/03/17 13:45 (Glucagon Inj) 1 mg UNSCH PRN OTHER 01/03/17 13:45 Pharmacy Profile Note 0 ml @ 0 mls/hr UNSCH OTHER 01/04/17 10:15 Vancomycin HCl 1250 mg/Sodium Chloride 262.5 ml @ 250 mls/hr Q24H IV 01/04/17 12:00 01/04/17 13:05 A/P Assessment and Plan Acute metabolic encephalopathy Seems to be secondary to doubling up on the patient's medications. She is on high doses of Valium, which her sister states she takes once every few days. She did have an elevated lactic acid level. No source of infection was identified. ABG noted. TSH slightly elevated. UA indicative of possible infection. Status post vancomycin and Zosyn in the emergency department. Mental status improving. 1 set of blood cultures positive for GPC. - Continue IV fluids. - Neuro checks. - Avoid sedating medications. - PT/ OT. - Case management consult requested. - Check an ammonia level. - Continue ceftriaxone and vancomycin. Bacteremia/ UTI Unsure of significance. Urine culture negative so far. - repeat blood cultures and start IV vancomycin. - ID consult requested. - continue ceftriaxone. Abdominal pain Right lower quadrant pain elicited on examination. CT abdomen unremarkable. - seems resolved. Renal insufficiency Acute on chronic. - Continue with IV fluids. Improving. - Avoid nephrotoxic agents. GERD The patient has a long history of GERD and once required a feeding tube. - Continue PPI. Diabetes On metformin as an outpatient. Glucose well controlled. - Hold metformin. - Insulin sliding scale and diabetic diet. PPx: Heparin Discharge Planning Awaiting ID Alvaro Laguerre DO Jan 04, 2017 13:43
--- NOTE | 2017-01-04 15:08 | RADRPT ---
EXAM DATE/TIME: 01/04/2017 14:45 [facility] COMPARISON: SHOULDER RIGHT COMPLETE (>2VWS), February 23, 2015, 16:12. INDICATIONS : Right shoulder pain after fall. MEDICAL HISTORY : None. SURGICAL HISTORY : None. ENCOUNTER: Initial ACUITY: 1 week PAIN SCORE: 10/10 LOCATION: Right shoulder. FINDINGS: Multiple view examination of the right shoulder demonstrates no evidence of fracture or dislocation. The glenohumeral and acromioclavicular joints are maintained. There is normal range of motion betwe en internal and external rotation. Bony mineralization is normal. CONCLUSION: No acute disease. Jonn Espitia MD on January 04, 2017 at 15:06 Board Certified Radiologist. This report was verified electronically.
[2017-01-04] MEDS: PRAVASTATIN SOD 40 MG TAB PO SCH (21:00)
[2017-01-05] VITALS (8 sets, daily range): BP systolic 153–171; BP diastolic 67–97; PULSE 71–97; RESP 16–20; TEMP 98.1–98.4; O2SAT 97–100
[2017-01-05] MEDS: SODIUM CHLOR 0.9% 1000 ML INJ 1,000 ML IV SCH ×2 (01:02→09:13)
[2017-01-05] MEDS: ACETAMINOPHEN 325 MG TAB PO PRN ×3 (01:24→20:30)
[2017-01-05] MEDS: INSULIN ASPART SUPPLEMENTAL SCALE SQ SCH ×4 (08:00→20:33)
[2017-01-05 08:38] LABS: HEMATOCRIT 26.4 % (35.0-46.0); MEAN CELL VOLUME 90.4 FL (80.0-100.0); MEAN CORPUSCULAR HEMOGLOBIN 30.2 PG (27.0-34.0); MEAN CORPUSCULAR HGB CONC 33.4 % (32.0-36.0); PLATELET COUNT 302 TH/MM3 (150-450); RED BLOOD COUNT 2.92 MIL/MM3 (4.00-5.30); RED CELL DISTRIBUTION WIDTH 13.5 % (11.6-17.2); WHITE BLOOD COUNT 7.3 TH/MM3 (4.0-11.0)
[2017-01-05 08:45] LABS: BICARBONATE 19.2 MEQ/L (21.0-32.0); MAGNESIUM 2.2 MG/DL (1.5-2.5); POTASSIUM 3.9 MEQ/L (3.5-5.1)
[2017-01-05] MEDS: DOCUSATE SODIUM 50 MG/SENNA 8.6 MG TAB PO SCH ×2 (09:00→20:30)
[2017-01-05] MEDS: APIXABAN 5 MG TABLET PO SCH ×2 (09:09→20:30)
[2017-01-05] MEDS: SERTRALINE HCL 50 MG TAB PO SCH (09:10)
[2017-01-05] MEDS: PANTOPRAZOLE SOD 40 MG DELAYED RELEASE TAB PO SCH (09:10)
[2017-01-05] MEDS: CLOPIDOGREL 75 MG TAB PO SCH (09:10)
[2017-01-05] MEDS: METOPROLOL SUCCINATE 50 MG EXTENDED RELEASE TAB PO SCH ×2 (09:11→20:30)
[2017-01-05] MEDS: LACOSAMIDE 50 MG TAB PO SCH (09:11)
[2017-01-05] MEDS: cefTRIAXone INJ 1,000 MG in SODIUM CHLORIDE 0.9% INJ 100 ML IV SCH (09:12)
[2017-01-05] MEDS: SODIUM CHLORIDE 0.9% FLUSH 10 ML FLUSH IV FLUSH SCH ×2 (09:12→20:30)
[2017-01-05 09:26] LABS: REVIEW FLAG FINAL
[2017-01-05] MEDS: VANCOMYCIN INJ 1,250 MG in SODIUM CHLOR 0.9% 250 ML INJ 250 ML IV SCH (13:16)
--- NOTE | 2017-01-05 13:30 | HHI.PR ---
Subjective Remarks The pt said she was feeling crummy. She said she had pain in her right foot, which was to be operated on soon. She was seen alongside with infectious disease. She did complain of some abdominal pain. She mentioned food would make the pain worse. Objective Vitals Vital Signs Date Time Temp Pulse Resp B/P (MAP) Pulse Ox O2 Delivery O2 Flow Rate FiO2 01/05/17 11:18 98.3 78 16 165/73 (103) 100 01/05/17 07:30 97 21 01/05/17 07:29 98.4 71 20 157/74 (101) 97 01/05/17 03:30 98.1 83 18 171/70 (103) 98 01/05/17 03:00 18 01/05/17 00:01 98.1 83 18 153/67 (95) 99 01/04/17 20:12 98.0 93 18 154/67 (96) 100 01/04/17 20:00 94 01/04/17 15:50 98.1 75 18 162/72 (102) 99 I/O 01/04/17 01/04/17 01/04/17 01/05/17 01/05/17 01/05/17 07:00 15:00 23:00 07:00 15:00 23:00 Intake Total 240 ml 1350 ml 100 ml Balance 240 ml 1350 ml 100 ml Intake Oral 240 ml IV Total 1350 ml 100 ml # Voids 5 4 1 # Bowel Movements 1 1 Result Diagram: 01/05/17 0703 01/05/17 0703 Imaging Last Impressions Shoulder X-Ray 01/04/17 0000 Signed Impressions: Service Date/Time: Wednesday, January 04, 2017 14:45 - CONCLUSION: No acute disease. Jonn Espitia MD Head CT 01/03/17525 Signed Impressions: Service Date/Time: Tuesday, January 03, 2017 05:41 - CONCLUSION: Normal examination. Rc García MD Chest X-Ray 01/03/17525 Signed Impressions: Service Date/Time: Tuesday, January 03, 2017 05:46 - CONCLUSION: 1. No active disease. Rc García MD Elbow X-Ray 01/03/17 0000 Signed Impressions: Service Date/Time: Tuesday, January 03, 2017 16:56 - CONCLUSION: No acute disease. Jonn Espitia MD Abdomen/Pelvis CT 01/03/17 0000 Signed Impressions: Service Date/Time: Tuesday, January 03, 2017 17:16 - CONCLUSION: 1. Small pericardial effusion. 2. Atherosclerosis. 3. No inflammatory changes are identified. Jonn Espitia MD Objective Remarks GENERAL: Well-nourished, well-developed patient. SKIN: Focused skin assessment warm/dry. HEAD: Normocephalic. EYES: No scleral icterus. No injection or drainage. NECK: Supple, trachea midline. No JVD or lymphadenopathy. CARDIOVASCULAR: Regular rate and rhythm without murmurs, gallops, or rubs. RESPIRATORY: Breath sounds equal bilaterally. No accessory muscle use. GASTROINTESTINAL: Abdomen soft, slightly tender in the epigastric area. MUSCULOSKELETAL: No cyanosis, or edema. Right bonsai tender to palpation. BACK: Nontender without obvious deformity. No CVA tenderness. NEURO: Patient follows commands. Awake and alert. Confusion has improved. PSYCH: Mood and affect appropriate. Procedures None Medications and IVs Current Medications Medications (Trade) Dose Ordered Sig/Georgie Route Start Time Stop Time Status Last Admin Sodium Chloride 1,000 ml @ 100 mls/hr Q10H IV 01/03/17 09:02 01/05/17 09:13 (NS Flush) 2 ml UNSCH PRN IV FLUSH 01/03/17 09:15 (NS Flush) 2 ml BID IV FLUSH 01/03/17 21:00 01/05/17 09:12 (Tylenol) 650 mg Q4H PRN PO 01/03/17 09:15 01/05/17 09:10 (Tylenol) 650 mg Q6H PRN PO 01/03/17 09:15 01/05/17 01:24 (Narcan Inj) 0.4 mg UNSCH PRN IV PUSH 01/03/17 09:15 (Jenn-Colace) 1 tab BID PO 01/03/17 21:00 01/04/17 09:28 (Eliquis) 5 mg BID PO 01/03/17 10:00 01/05/17 09:09 (Plavix) 75 mg DAILY PO 01/03/17 10:00 01/05/17 09:10 (Toprol Xl) 50 mg BID PO 01/03/17 10:00 01/05/17 09:11 (Protonix) 40 mg DAILY PO 01/04/17 09:00 01/05/17 09:10 (Pravachol) 40 mg HS PO 01/03/17 21:00 01/04/17 21:00 (Zoloft) 50 mg DAILY PO 01/04/17 09:00 01/05/17 09:10 (Duoneb Neb) 1 ampule Q2HR NEB PRN NEB 01/03/17 09:15 (Ativan) 0.5 mg Q6H PRN PO 01/03/17 09:15 (Vimpat) 50 mg DAILY PO 01/04/17 09:00 01/05/17 09:11 (NovoLOG SUPPLEMENTAL SCALE) 1 ACHS SLIDING SCALE SQ 01/03/17 17:00 (D50w (Syr) Inj) 50 ml UNSCH PRN IV PUSH 01/03/17 13:45 (Glucagon Inj) 1 mg UNSCH PRN OTHER 01/03/17 13:45 Pharmacy Profile Note 0 ml @ 0 mls/hr UNSCH OTHER 01/04/17 10:15 Vancomycin HCl 1250 mg/Sodium Chloride 262.5 ml @ 250 mls/hr Q24H IV 01/04/17 12:00 01/05/17 13:16 Miscellaneous Information SPECIFIC LAB TO BE DRAWN:VANCOMYCIN TROUGH DATE TO... ONCE ONCE .XX 01/07/17 11:45 01/07/17 11:46 (Norvasc) 5 mg DAILY PO 01/05/17 13:30 UNV A/P Assessment and Plan Acute metabolic encephalopathy Seems to be secondary to doubling up on the patient's medications. She is on high doses of Valium, which her sister states she takes once every few days. Ammonia level was 15. She did have an elevated lactic acid level. No source of infection was identified. ABG noted. TSH slightly elevated. UA indicative of possible infection. Status post vancomycin and Zosyn in the emergency department. Mental status improving. 2 sets of blood cultures positive for GPC. Mental status seems to have returned to baseline. - S/p IV fluids. - Neuro checks. - Avoid sedating medications. - PT/ OT. - Case management consult requested. - Continue vancomycin. Bacteremia/ UTI Unsure of significance. Urine culture negative. Ceftriaxone was discontinued. - repeat blood cultures. NGTD. - continue IV vancomycin. - ID consult requested. Abdominal pain Right lower quadrant pain elicited on examination. CT abdomen unremarkable. Now with epigastric tenderness. - check lipase. - continue PPI. Renal insufficiency Acute on chronic. - Continue with IV fluids. Improving. - Avoid nephrotoxic agents. GERD The patient has a long history of GERD and once required a feeding tube. - Continue PPI. Diabetes On metformin as an outpatient. Glucose well controlled. - Hold metformin. - Insulin sliding scale and diabetic diet. Anemia The pt appears to be anemic at baseline. - follow CBC as needed. PPx: Heparin Discharge Planning Awaiting ID eval. D/c to SNF vs. home with HHC in 1-2 days. Alvaro Garcia DO Jan 05, 2017 13:30
--- NOTE | 2017-01-05 13:32 | PD.ID.CON ---
History of Present Illness Service ID Consult Requested By Reason for Consult Evaluation and Mment of Karina marroquin staph bacteremia and ulcerations on right forearm and hand. Primary Care Physician Non-Staff Diagnoses: History of Present Illness The patient is a 76-year-old female with a past medical history of CVA and polio who is presenting to the hospital with altered mental status. 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 Apparently the patient missed her morning medications yesterday and doubled up on her medications in the evening. After that the patient was found to be lethargic and her sister tried to track her out of bed and the patient fell on top of her sister. They both sustained some abrasions from the fall. The patient's sister does believe that doubling up on the medications caused her sisters confusion. The patient is complaining of urinating a lot but otherwise is unable to describe the circumstances leading to her hospitalization. She does endorse some vague aches and pains. She denies any diarrhea or fever. She did endorse some abdominal pain in her right lower abdomen. She was unable to be more specific. The patient's sister states that the patient Discussed with her sister over the phone, who helped with the history. Hospital course: encephalopathy resolved. Wounds do not appear infected. Antibiotics deescalated. Blood cultures on admission positive ID consulted for evaluation and Mment. Review of Systems ROS Limitations: Poor Historian Past Family Social History Allergies: Coded Allergies: Influenza Virus Vaccines (Unverified Allergy, Intermediate, 11/23/16) "ALLERGIC TO EGGS SO I CAN NOT HAVE THE FLU SHOT" egg (Unverified Allergy, Intermediate, 11/23/16) codeine (Unverified Allergy, Mild, 11/23/16) meperidine (Unverified Allergy, Mild, 11/23/16) morphine (Unverified Allergy, Mild, 11/23/16) acetaminophen (Unverified Adverse Reaction, Mild, HEADACHE, 11/23/16) hydrocodone (Unverified Adverse Reaction, Mild, HEADACHE, 11/23/16) Past Medical History Anemia OA Anxiety/depression Cervical cancer DM Hyperlipidemia CVA Diabetes mellitus Esophageal stricture GERD Incontinence Seizures Chronic bronchitis Hx of polio Past Surgical History Appendectomy Cholecystectomy Hysterectomy with cervical cancer. C4-C6 plate placed Laparoscopic Hernandez procedure Oral surgery R knee replacement Reported Medications Reported Meds & Active Scripts Active Eliquis (Apixaban) 5 Mg Tab 10 Mg PO BID Please take Eliquis 10mg (2 tablets) twice a day for the first 6 days upon discharge. Then continue Eliquis with 5mg (1 tablet) twice a day for up to 3 months. Eliquis (Apixaban) 5 Mg Tab 5 Mg PO BID Please take Eliquis 10mg (2 tablets) twice a day for the first 6 days upon discharge. Then continue Eliquis with 5mg (1 tablet) twice a day for up to 3 months. Reported Pravastatin 40 Mg Tab 40 Mg PO DAILY Dexilant (Dexlansoprazole) 60 Mg Cap.bp 1 Cap PO DAILY Baclofen 10 Mg Tab 10 Mg PO TID Vimpat (Lacosamide) 100 Mg Tab 100 Mg PO BID Proair Hfa 8.5 GM Inh (Albuterol Sulfate) 90 Mcg/Act Aer 2 Puff INH Q6H PRN 108 mcg/actuation Metformin ER (Metformin HCl) 1,000 Mg Tatiana 1,000 Mg PO BID With evening meal Valium (Diazepam) 10 Mg Tab 10 Mg PO TID PRN Plavix (Clopidogrel Bisulfate) 75 Mg Tab 75 Mg PO DAILY Toprol XL (Metoprolol Succinate) 50 Mg Tab 50 Mg PO BID Pantoprazole (Pantoprazole Sodium) 40 Mg Tab 40 Mg PO DAILY Pravachol (Pravastatin) 40 Mg Tab 40 Mg PO HS Sertraline (Sertraline HCl) 25 Mg Tab 50 Mg PO DAILY Active Ordered Medications Current Medications Medications (Trade) Dose Ordered Sig/Georgie Route Start Time Stop Time Status Last Admin (NS Flush) 2 ml UNSCH PRN IV FLUSH 01/03/17 09:15 (NS Flush) 2 ml BID IV FLUSH 01/03/17 21:00 01/05/17 20:30 (Tylenol) 650 mg Q4H PRN PO 01/03/17 09:15 01/05/17 09:10 (Tylenol) 650 mg Q6H PRN PO 01/03/17 09:15 01/05/17 20:30 (Narcan Inj) 0.4 mg UNSCH PRN IV PUSH 01/03/17 09:15 (Jenn-Colace) 1 tab BID PO 01/03/17 21:00 01/04/17 09:28 (Eliquis) 5 mg BID PO 01/03/17 10:00 01/05/17 20:30 (Plavix) 75 mg DAILY PO 01/03/17 10:00 01/05/17 09:10 (Toprol Xl) 50 mg BID PO 01/03/17 10:00 01/05/17 20:30 (Protonix) 40 mg DAILY PO 01/04/17 09:00 01/05/17 09:10 (Pravachol) 40 mg HS PO 01/03/17 21:00 01/05/17 20:30 (Zoloft) 50 mg DAILY PO 01/04/17 09:00 01/05/17 09:10 (Duoneb Neb) 1 ampule Q2HR NEB PRN NEB 01/03/17 09:15 (Ativan) 0.5 mg Q6H PRN PO 01/03/17 09:15 (Vimpat) 50 mg DAILY PO 01/04/17 09:00 01/05/17 09:11 (NovoLOG SUPPLEMENTAL SCALE) 1 ACHS SLIDING SCALE SQ 01/03/17 17:00 (D50w (Syr) Inj) 50 ml UNSCH PRN IV PUSH 01/03/17 13:45 (Glucagon Inj) 1 mg UNSCH PRN OTHER 01/03/17 13:45 Pharmacy Profile Note 0 ml @ 0 mls/hr UNSCH OTHER 01/04/17 10:15 Vancomycin HCl 1250 mg/Sodium Chloride 262.5 ml @ 250 mls/hr Q24H IV 01/04/17 12:00 01/05/17 13:16 Miscellaneous Information SPECIFIC LAB TO BE DRAWN:VANCOMYCIN TROUGH DATE TO... ONCE ONCE .XX 01/07/17 11:45 01/07/17 11:46 (Norvasc) 5 mg DAILY PO 01/05/17 13:30 01/05/17 14:17 (Vasotec Inj) 1.25 mg Q6H PRN IV PUSH 01/05/17 22:00 (Lactinex) 1 tab TID PO 01/06/17 09:00 Family History The pt was adopted Social History The patient does not smoke or drink Physical Exam Vital Signs Vital Signs Date Time Temp Pulse Resp B/P (MAP) Pulse Ox O2 Delivery O2 Flow Rate FiO2 01/05/17 11:18 98.3 78 16 165/73 (103) 100 01/05/17 07:30 97 21 01/05/17 07:29 98.4 71 20 157/74 (101) 97 01/05/17 03:30 98.1 83 18 171/70 (103) 98 01/05/17 03:00 18 01/05/17 00:01 98.1 83 18 153/67 (95) 99 01/04/17 20:12 98.0 93 18 154/67 (96) 100 01/04/17 20:00 94 01/04/17 15:50 98.1 75 18 162/72 (102) 99 Physical Exam GENERAL: This is a well-nourished, well-developed patient, in no apparent distress. SKIN: Bilateral UE abrasions with no e.o infection HEAD: Atraumatic. Normocephalic. No temporal or scalp tenderness. EYES: Pupils equal round and reactive. Extraocular motions intact. No scleral icterus. No injection or drainage. ENT: Nose without bleeding, purulent drainage or septal hematoma. Throat without erythema, tonsillar hypertrophy or exudate. Uvula midline. Airway patent. NECK: Trachea midline. Supple, nontender, no meningeal signs. CARDIOVASCULAR: Regular rate and rhythm without murmurs, gallops, or rubs. RESPIRATORY: Clear to auscultation. Breath sounds equal bilaterally. No wheezes , rales, or rhonchi. GASTROINTESTINAL: Abdomen soft, non-tender, nondistended. Prior PEG tube scar with no e/o infection MUSCULOSKELETAL: Extremities without clubbing, cyanosis, or edema. NEUROLOGICAL: Awake and alert. Grossly non focal Psych cooperative IV line sites with no e.o infection. Laboratory Laboratory Tests Test 01/05/17 07:03 White Blood Count 7.3 Red Blood Count 2.92 Hemoglobin 8.8 Hematocrit 26.4 Mean Corpuscular Volume 90.4 Mean Corpuscular Hemoglobin 30.2 Mean Corpuscular Hemoglobin Concent 33.4 Red Cell Distribution Width 13.5 Platelet Count 302 Mean Platelet Volume 7.7 Blood Urea Nitrogen 11 Creatinine 1.09 Random Glucose 117 Calcium Level 8.6 Magnesium Level 2.2 Sodium Level 142 Potassium Level 3.9 Chloride Level 114 Carbon Dioxide Level 19.2 Anion Gap 9 Estimat Glomerular Filtration Rate 49 Date/Time Source Procedure Growth Status 01/04/17 12:48 Blood Peripheral Aerobic Blood Culture - Preliminary NO GROWTH IN 1 DAY Resulted 01/04/17 12:48 Blood Peripheral Anaerobic Blood Culture - Preliminary NO GROWTH IN 1 DAY Resulted 01/03/17 05:29 Urine Catheterized Urine Urine Culture - Final <10,000 CFU/ML GRAM POSITIVE REZA Complete Result Diagram: 01/05/17 0703 01/05/17 0703 Imaging Last Impressions Shoulder X-Ray 01/04/17 0000 Signed Impressions: Service Date/Time: Wednesday, January 04, 2017 14:45 - CONCLUSION: No acute disease. Jonn Espitia MD Head CT 01/03/17525 Signed Impressions: Service Date/Time: Tuesday, January 03, 2017 05:41 - CONCLUSION: Normal examination. Rc García MD Chest X-Ray 01/03/17525 Signed Impressions: Service Date/Time: Tuesday, January 03, 2017 05:46 - CONCLUSION: 1. No active disease. Rc García MD Elbow X-Ray 01/03/17 0000 Signed Impressions: Service Date/Time: Tuesday, January 03, 2017 16:56 - CONCLUSION: No acute disease. Jonn Espitia MD Abdomen/Pelvis CT 01/03/17 0000 Signed Impressions: Service Date/Time: Tuesday, January 03, 2017 17:16 - CONCLUSION: 1. Small pericardial effusion. 2. Atherosclerosis. 3. No inflammatory changes are identified. Jonn Espitia MD Assessment and Plan Assessment and Plan Coag neg staph bacteremia ? contamination. RUE abrasions with no e.o infection Acute encephalopathy on admission: resolved ? medication induced as improved without infection being treated. Not infection related. Recs DC Vanco IV Observe off antibiotics. Follow repeat blood cultures If repeat blood cultures negative at 72 hours ok to discharge home from ID standpoint. Recommend repeat blood cultures in 1 week after discharge to ensure clearance of bacteremia. Can be done by PCP please communicate importance to PCP as patient may have orthopedic surgery and important to document no persistent bacteremia prior to surgery. Will sign off if repeat blood cultures are positive please call me back. d/w Dr.Sayess michel RN and pt. Donna Rivera MD Jan 05, 2017 13:32
[2017-01-05] MEDS: amLODIPine BESYLATE 5 MG TAB PO SCH (14:17)
[2017-01-05] MEDS ORDERED: ENALAPRILAT 1.25 MG/ML VIAL IV PUSH ONE (16:00)
[2017-01-05] MEDS: PRAVASTATIN SOD 40 MG TAB PO SCH (20:30)
[2017-01-05] MEDS ORDERED: ENALAPRILAT 1.25 MG/ML VIAL IV PUSH PRN (22:00)
[2017-01-06 00:12] VITALS: BP 164/75; PULSE 78; RESP 17; TEMP 98.2; O2SAT 100
[2017-01-06] MEDS: ACETAMINOPHEN 325 MG TAB PO PRN ×2 (02:24→22:39)
[2017-01-06 03:30] VITALS: BP 144/68; PULSE 85; RESP 18; TEMP 98.3; O2SAT 99
[2017-01-06] MEDS: INSULIN ASPART SUPPLEMENTAL SCALE SQ SCH ×4 (08:00→21:00)
[2017-01-06] MEDS: amLODIPine BESYLATE 5 MG TAB PO SCH ×2 (08:00→08:44)
[2017-01-06 08:09] VITALS: BP 164/77; PULSE 77; RESP 16; TEMP 98.1; O2SAT 100
[2017-01-06] MEDS: DOCUSATE SODIUM 50 MG/SENNA 8.6 MG TAB PO SCH ×2 (08:43→20:18)
[2017-01-06] MEDS: LACOSAMIDE 50 MG TAB PO SCH (08:44)
[2017-01-06] MEDS: PANTOPRAZOLE SOD 40 MG DELAYED RELEASE TAB PO SCH (08:44)
[2017-01-06] MEDS: METOPROLOL SUCCINATE 50 MG EXTENDED RELEASE TAB PO SCH ×2 (08:44→20:20)
[2017-01-06] MEDS: CLOPIDOGREL 75 MG TAB PO SCH (08:44)
[2017-01-06] MEDS: APIXABAN 5 MG TABLET PO SCH ×2 (08:44→20:20)
[2017-01-06] MEDS: LACTOBACILLUS ACIDOPHILUS TAB PO SCH ×3 (08:44→18:00)
[2017-01-06] MEDS: SERTRALINE HCL 50 MG TAB PO SCH (08:45)
[2017-01-06] MEDS: SODIUM CHLORIDE 0.9% FLUSH 10 ML FLUSH IV FLUSH SCH ×2 (08:45→20:19)
--- NOTE | 2017-01-06 09:12 | HHI.PR ---
Subjective Remarks Follow-up for altered mental status, abdominal pain. The patient states she was up all night urinating because of all the IV fluids. She is eating full breakfast currently and has been tolerating oral intake. The patient states that yesterday on day she had diarrhea, no bowel movements yet today. She's been having upper abdominal pain for months. She previously had a feeding tube. Her product support consultant is Dr. Boyer. She still needing assistance use the bedside commode because she feels shaky on her feet. She lives at home with her sister normally. Objective Vitals Vital Signs Date Time Temp Pulse Resp B/P (MAP) Pulse Ox O2 Delivery O2 Flow Rate FiO2 01/06/17 08:09 98.1 77 16 164/77 (106) 100 01/06/17 03:55 18 01/06/17 03:30 98.3 85 18 144/68 (93) 99 01/06/17 00:12 98.2 78 17 164/75 (104) 100 01/05/17 20:02 99 21 01/05/17 19:52 98.2 97 18 169/80 (109) 98 01/05/17 15:12 98.4 92 18 169/97 (121) 100 01/05/17 11:18 98.3 78 16 165/73 (103) 100 I/O 01/05/17 01/05/17 01/05/17 01/06/17 01/06/17 01/06/17 07:00 15:00 23:00 07:00 15:00 23:00 Intake Total 1150 ml Balance 1150 ml IV Total 1150 ml # Bowel Movements 4 Result Diagram: 01/05/17 0701/05/17 0703 Imaging Last Impressions Shoulder X-Ray 01/04/17 0000 Signed Impressions: Service Date/Time: Wednesday, January 04, 2017 14:45 - CONCLUSION: No acute disease. Jonn Espitia MD Head CT 01/03/17525 Signed Impressions: Service Date/Time: Tuesday, January 03, 2017 05:41 - CONCLUSION: Normal examination. Rc García MD Chest X-Ray 01/03/17525 Signed Impressions: Service Date/Time: Tuesday, January 03, 2017 05:46 - CONCLUSION: 1. No active disease. Rc García MD Elbow X-Ray 01/03/17 0000 Signed Impressions: Service Date/Time: Tuesday, January 03, 2017 16:56 - CONCLUSION: No acute disease. Jonn Espitia MD Abdomen/Pelvis CT 01/03/17 0000 Signed Impressions: Service Date/Time: Tuesday, January 03, 2017 17:16 - CONCLUSION: 1. Small pericardial effusion. 2. Atherosclerosis. 3. No inflammatory changes are identified. Jonn Espitia MD Objective Remarks GENERAL: Well-developed well-nourished. In no acute distress. SKIN: Warm and dry. Right forearm abrasions with clean dressings. HEENT: Normocephalic. Pupils equal and round. Mucous membranes pink and moist. CARDIOVASCULAR: Regular rate and rhythm. No murmur appreciated. RESPIRATORY: No accessory muscle use. Clear to auscultation. Breath sounds equal bilaterally. GASTROINTESTINAL: Abdomen soft, mild epigastric TTP, nondistended. Bowel sounds x4. MUSCULOSKELETAL: No obvious deformities. No clubbing or cyanosis. No edema. NEUROLOGICAL: Awake and alert. No focal neurological deficits. Moves upper and lower extremities spontaneously. Normal speech. PSYCHIATRIC: Appropriate mood and affect; insight and judgment fair to normal. Procedures None A/P Assessment and Plan 76-year-old female with a past medical history of CVA and polio who presented with altered mental status Acute metabolic/toxic encephalopathy Thought to be secondary to the patient doubling up on her medications. Possible mild underlying dementia. She is on high doses of Valium, which her sister states she takes once every few days. Ammonia level was 15. She did have an elevated lactic acid level. No source of infection was identified. ABG noted. TSH slightly elevated. Status post vancomycin and Zosyn in the emergency department. Mental status improving. 2 sets of blood cultures positive for GPC. Mental status seems to have returned to baseline. - Neuro checks. - Avoid sedating medications. - PT/ OT. - Case management consult requested. Bacteremia/ UTI 2/4 blood cultures positive for coagulase-negative staph. Unsure of significance. Urine culture negative. - repeat blood cultures pending. NGTD. - ID consulted, appreciate input, recommended monitoring off antibiotics and monitoring repeat blood cultures 72 hours. Abdominal pain: Epigastric tenderness to palpation. CT abdomen was unremarkable. Lipase within normal limits. Patient also with diarrhea. -Stool studies including C. difficile -Continue PPI -Consult patient's product support consultant Acute injury on chronic kidney disease. - Improved with IVF - Avoid nephrotoxic agents. Diabetes On metformin as an outpatient. Glucose well controlled. - Hold metformin. - Insulin sliding scale and diabetic diet. Anemia, normocytic The pt appears to be anemic at baseline upon past lab review. - Hemoglobin currently stable, follow CBC as needed. PPx: Heparin Discharge Planning Continue PT while admitted. Follow-up blood cultures. Follow up GI recommendations. HHC vs SNF at [place]. Norris Leal Jan 06, 2017 09:12
[2017-01-06 11:33] VITALS: BP 156/74; PULSE 79; RESP 16; TEMP 98; O2SAT 99
[2017-01-06] MEDS: LORazepam 0.5 MG TAB PO PRN ×2 (13:22→21:42)
--- NOTE | 2017-01-06 13:59 | PD.CONS ---
HPI History of Present Illness This is a 76 year old female with hx CVA, polio, dementia who per EMR presented with abd pain. She missed her medications and subsquently doubled up. She is c /o of abd pain in the epigastric area. She says she has had the pain for years. She says she has acid reflux. She admits nausea and vomiting today. No blood in emesis. ADmits diarrhea yesterday but not today. She says she never had colonoscopy but had upper endoscopy for epigastric pain and says dilatation was done, not sure when this was done. SHe admits intermittent dysphagia but is having no difficulties at this time. No blood in stool, black tarry stool. Just had BM, formed. Pt is poor historian. Currently on plavix and eliquis. (Mariely Plascencia) PFSH Past Medical History Anemia OA Anxiety/depression Cervical cancer DM Hyperlipidemia CVA Diabetes mellitus Esophageal stricture GERD Incontinence Seizures Chronic bronchitis Hx of polio Past Surgical History Appendectomy Cholecystectomy Hysterectomy with cervical cancer. C4-C6 plate placed Laparoscopic Hernandez procedure Oral surgery R knee replacement (Mariely Plascencia) Coded Allergies: Influenza Virus Vaccines (Unverified Allergy, Intermediate, 11/23/16) "ALLERGIC TO EGGS SO I CAN NOT HAVE THE FLU SHOT" egg (Unverified Allergy, Intermediate, 11/23/16) codeine (Unverified Allergy, Mild, 11/23/16) meperidine (Unverified Allergy, Mild, 11/23/16) morphine (Unverified Allergy, Mild, 11/23/16) acetaminophen (Unverified Adverse Reaction, Mild, HEADACHE, 11/23/16) hydrocodone (Unverified Adverse Reaction, Mild, HEADACHE, 11/23/16) Family History The pt was adopted Social History The patient does not smoke or drink (Mariely Plascencia) Review of Systems Constitutional: COMPLAINS OF: Fever Eyes: DENIES: Blurred vision Ears, nose, mouth, throat: DENIES: Hearing loss Respiratory: DENIES: Hemoptysis Cardiovascular: DENIES: Chest pain Gastrointestinal: COMPLAINS OF: Abdominal pain, Nausea, Vomiting, DENIES: Black stools, Bloody stools, Constipation, Diarrhea, Hematemesis Genitourinary: DENIES: Hematuria Musculoskeletal: DENIES: Joint Swelling Integumentary: DENIES: Jaundice Neurologic: DENIES: Headache Psychiatric: DENIES: Anxiety (Mariely Plascencia) GI Exam Vitals I&O Vital Signs Date Time Temp Pulse Resp B/P (MAP) Pulse Ox O2 Delivery O2 Flow Rate FiO2 01/06/17 11:33 98.0 79 16 156/74 (101) 99 01/06/17 08:09 98.1 77 16 164/77 (106) 100 01/06/17 03:55 18 01/06/17 03:30 98.3 85 18 144/68 (93) 99 01/06/17 00:12 98.2 78 17 164/75 (104) 100 01/05/17 20:02 99 21 01/05/17 19:52 98.2 97 18 169/80 (109) 98 01/05/17 15:12 98.4 92 18 169/97 (121) 100 I/O 01/05/17 01/05/17 01/05/17 01/06/17 01/06/17 01/06/17 07:00 15:00 23:00 07:00 15:00 23:00 Intake Total 1150 ml Balance 1150 ml IV Total 1150 ml # Bowel Movements 4 Imaging Last Impressions Shoulder X-Ray 01/04/17 0000 Signed Impressions: Service Date/Time: Wednesday, January 04, 2017 14:45 - CONCLUSION: No acute disease. Jonn Espitia MD Head CT 01/03/17525 Signed Impressions: Service Date/Time: Tuesday, January 03, 2017 05:41 - CONCLUSION: Normal examination. Rc García MD Chest X-Ray 01/03/17525 Signed Impressions: Service Date/Time: Tuesday, January 03, 2017 05:46 - CONCLUSION: 1. No active disease. Rc García MD Elbow X-Ray 01/03/17 0000 Signed Impressions: Service Date/Time: Tuesday, January 03, 2017 16:56 - CONCLUSION: No acute disease. Jonn Espitia MD Abdomen/Pelvis CT 01/03/17 0000 Signed Impressions: Service Date/Time: Tuesday, January 03, 2017 17:16 - CONCLUSION: 1. Small pericardial effusion. 2. Atherosclerosis. 3. No inflammatory changes are identified. Jonn Espitia MD Laboratory Date/Time Source Procedure Growth Status 01/04/17 12:48 Blood Peripheral Aerobic Blood Culture - Preliminary NO GROWTH IN 2 DAYS Resulted 01/04/17 12:48 Blood Peripheral Anaerobic Blood Culture - Preliminary NO GROWTH IN 2 DAYS Resulted 01/06/17 13:23 Stool Stool Pending Received 01/03/17 05:29 Urine Catheterized Urine Urine Culture - Final <10,000 CFU/ML GRAM POSITIVE REZA Complete Physical Examination HEENT: PERRL; normocephalic; atraumatic; no jaundice. CHEST: CTA CARDIAC: RRR ABDOMEN: Soft, nondistended, epigastric TTP; no hepatosplenomegaly; bowel sounds are present in all four quadrants. EXTREMITIES: No clubbing, cyanosis, or edema. SKIN: Normal; no rash; no jaundice. 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 (Mariely Plascencia) Assessment and Plan Plan ASSESSMENT - n/v, epigastric pain - unclear etiology, pt cites chronic epigastric pain, GERD, need for EGD with dilatation in past. CT no acute GI abnormalities. At this time not clear who gives consent for this pt, she thinks it's 1918. on plavix and ASA - diarrhea - improving. pt had formed BM today. stool cx pending. PLAN - recommend EGD and colonoscopy - obtain consent - continue protonix - continue probiotics - await stool cx - supportive care - GI will s/o, please reconsult when consent obtained This pt seen by myself and Dr Murry and this note is written on his behalf (Mariely Plascencia) Physician Comments Patient was seen and examined Agree with above Monitor labs We do recommend an EGD and a colonoscopy that apparently there is a problem with obtaining consent the power of sports attorney at this point seems to want more Dr. lopez we did attempt to call and that was the response we obtained Not much to add otherwise he's continue with current supportive management and reconsult once consent has been obtained (Dontrell Murry MD) Mariely Plascencia Jan 06, 2017 13:59 Dontrell Murry MD Jan 06, 2017 17:31
[2017-01-06 16:12] VITALS: BP 137/76; PULSE 95; RESP 18; TEMP 98.2; O2SAT 100
[2017-01-06 19:30] LABS: BLOOD, URINE NEG (NEG); COMMENT (UR) CULT NOT INDICATED; CULTURE IF INDICATED CULT NOT INDICATED; GLUCOSE,URINE NEG (NEG); KETONE, URINE NEG (NEG); NITRITE,URINE NEG (NEG); PH, URINE 6.5 (5.0-8.5); URINE COLOR COLORLESS (YELLW/STRAW)
[2017-01-06 19:36] VITALS: BP 170/74; PULSE 88; RESP 18; TEMP 98.1; O2SAT 98
[2017-01-06 20:05] LABS: C. DIFF EPI 027 PRESUMPTIVE NEGATIVE (NEGATIVE)
[2017-01-06] MEDS: PRAVASTATIN SOD 40 MG TAB PO SCH (20:20)
[2017-01-07] VITALS (10 sets, daily range): BP systolic 148–177; BP diastolic 59–80; PULSE 75–87; RESP 16–20; TEMP 97.6–98.6; O2SAT 95–100
[2017-01-07] MEDS: ACETAMINOPHEN 325 MG TAB PO PRN ×2 (05:52→13:37)
[2017-01-07] MEDS: INSULIN ASPART SUPPLEMENTAL SCALE SQ SCH ×4 (08:00→21:00)
[2017-01-07] MEDS: LACTOBACILLUS ACIDOPHILUS TAB PO SCH ×3 (08:09→17:45)
[2017-01-07] MEDS: PANTOPRAZOLE SOD 40 MG DELAYED RELEASE TAB PO SCH (08:09)
[2017-01-07] MEDS: METOPROLOL SUCCINATE 50 MG EXTENDED RELEASE TAB PO SCH ×2 (08:09→20:22)
[2017-01-07] MEDS: SERTRALINE HCL 50 MG TAB PO SCH (08:09)
[2017-01-07] MEDS: CLOPIDOGREL 75 MG TAB PO SCH (08:09)
[2017-01-07] MEDS: LACOSAMIDE 50 MG TAB PO SCH (08:09)
[2017-01-07] MEDS: SODIUM CHLORIDE 0.9% FLUSH 10 ML FLUSH IV FLUSH SCH ×2 (08:10→20:23)
[2017-01-07] MEDS: APIXABAN 5 MG TABLET PO SCH ×2 (08:10→20:22)
[2017-01-07] MEDS: amLODIPine BESYLATE 5 MG TAB PO SCH (08:10)
[2017-01-07] MEDS: metroNIDAZOLE 500 MG TAB PO SCH ×3 (08:12→20:22)
[2017-01-07] MEDS: ONDANSETRON HCL 4 MG/2 ML VIAL IV PUSH PRN ×2 (08:24→15:01)
--- NOTE | 2017-01-07 10:40 | HHI.PR ---
Subjective Remarks Follow-up for diarrhea and abdominal pain. The patient continues to complain of multiple episodes of diarrhea overnight. She has upper abdominal pain and lower abdominal cramping. She reports nausea and has not had any appetite so she has not been eating. She refused GI workup yesterday because she would rather have endoscopies done with her acid polymerization operator, Dr. Boyer. She states the date is January [id number]. She knows she is in [place] and is oriented to self. She lives with her sister who helps take care of her and does assist with medical decisions. She reports subjective chills yesterday. She denies any chronic memory problems, states her main chronic problem is strokes/TIAs. Objective Vitals Vital Signs Date Time Temp Pulse Resp B/P (MAP) Pulse Ox O2 Delivery O2 Flow Rate FiO2 01/07/17 10:03 155/74 (101) 01/07/17 09:00 97.6 84 16 177/80 (112) 98 01/07/17 07:23 16 01/07/17 04:15 98.0 85 18 168/77 (107) 97 01/07/17 01:18 98.1 87 20 173/78 (109) 100 01/06/17 19:36 98.1 88 18 170/74 (106) 98 01/06/17 16:12 98.2 95 18 137/76 (96) 100 01/06/17 11:33 98.0 79 16 156/74 (101) 99 I/O 01/06/17 01/06/17 01/06/17 01/07/17 01/07/17 01/07/17 07:00 15:00 23:00 07:00 15:00 23:00 Intake Total 1440 ml Balance 1440 ml Intake Oral 1440 ml # Voids 3 # Bowel Movements 3 Result Diagram: 01/05/17 0703 01/05/17702 Imaging Last Impressions Shoulder X-Ray 01/04/17 0000 Signed Impressions: Service Date/Time: Wednesday, January 04, 2017 14:45 - CONCLUSION: No acute disease. Jonn Espitia MD Head CT 01/03/17525 Signed Impressions: Service Date/Time: Tuesday, January 03, 2017 05:41 - CONCLUSION: Normal examination. Rc García MD Chest X-Ray 01/03/17525 Signed Impressions: Service Date/Time: Tuesday, January 03, 2017 05:46 - CONCLUSION: 1. No active disease. Rc García MD Elbow X-Ray 01/03/17 0000 Signed Impressions: Service Date/Time: Tuesday, January 03, 2017 16:56 - CONCLUSION: No acute disease. Jonn Espitia MD Abdomen/Pelvis CT 01/03/17 0000 Signed Impressions: Service Date/Time: Tuesday, January 03, 2017 17:16 - CONCLUSION: 1. Small pericardial effusion. 2. Atherosclerosis. 3. No inflammatory changes are identified. Jonn Espitia MD Objective Remarks GENERAL: Well-developed well-nourished. In no acute distress. Oriented to self and place and mostly to time. SKIN: Warm and dry. Right forearm abrasions with clean dressings. CARDIOVASCULAR: Regular rate and rhythm. No murmur appreciated. RESPIRATORY: No accessory muscle use. Clear to auscultation. Breath sounds equal bilaterally. GASTROINTESTINAL: Abdomen soft, mild epigastric TTP, nondistended. Bowel sounds x4. MUSCULOSKELETAL: No obvious deformities. No clubbing or cyanosis. No edema. NEUROLOGICAL: Awake and alert. Moves upper and lower extremities spontaneously. Normal speech. PSYCHIATRIC: Appropriate mood and affect; insight and judgment fair to normal. Procedures None A/P Assessment and Plan 76-year-old female with a past medical history of CVA and polio who presented with altered mental status Acute metabolic/toxic encephalopathy Thought to be exacerbated by the patient doubling up on her medications prior to admission. Also suspect mild underlying dementia. She is on high doses of Valium, which her sister states she takes once every few days. Ammonia level was 15. She did have an elevated lactic acid level. 2 sets of blood cultures positive for GPC. Urine culture with no growth. - Neuro checks. - Caution with sedating medications. - PT/ OT. - Case management consult requested. - Patient did have an episode of confusion 01/06, possibly acutely worsened secondary to C. difficile infection - Check repeat labs today - Cognitive eval Bacteremia 2/4 blood cultures positive for coagulase-negative staph. Unsure of significance. Urine culture negative. - repeat blood cultures pending. NGTD. - ID consulted, appreciate input, recommended monitoring off antibiotics and monitoring repeat blood cultures 72 hours. C. difficile infection: Patient complained of diarrhea and epigastric and lower abdominal discomfort. CT abdomen was unremarkable. Lipase within normal limits. C diff assay positive. -Stool studies pending -Continue PPI -Consulted gastroenterology, patient refuses workup at this time wants to follow up with her acid polymerization operator as outpatient -Resume IVF with poor oral intake -Antiemetics as needed Acute injury on chronic kidney disease. - Improved with IVF - Avoid nephrotoxic agents. Diabetes On metformin as an outpatient. Glucose well controlled. - Hold metformin. - Insulin sliding scale and diabetic diet. Anemia, normocytic The pt appears to be anemic at baseline upon past lab review. - Hemoglobin currently stable, follow CBC as needed. PPx: Heparin Discharge Planning Continue PT while admitted. Follow-up blood cultures. C vs SNF at [place]. Monitor for clinical improvement with new C. difficile infection and associated symptoms. Norris Leal Jan 07, 2017 10:40
[2017-01-07] MEDS: SODIUM CHLOR 0.9% 1000 ML INJ 1,000 ML IV SCH ×2 (11:16→22:35)
[2017-01-07] MEDS ORDERED: PHARMACY ORDERED LAB ONE (11:45)
[2017-01-07 15:34] LABS: BICARBONATE 21.3 MEQ/L (21.0-32.0); POTASSIUM 3.9 MEQ/L (3.5-5.1)
[2017-01-07] MEDS: PRAVASTATIN SOD 40 MG TAB PO SCH (20:22)
[2017-01-07 21:18] LABS: AUTOMATED NEUTROPHIL # 4.9 TH/MM3 (1.8-7.7); BASOPHIL # 0.1 TH/MM3 (0-0.2); BASOPHIL % 0.8 % (0.0-2.0); EOSINOPHIL % 0.6 % (0.0-4.0); HEMATOCRIT 29.7 % (35.0-46.0); HEMO FLAGS DIFF FINAL; LYMPH % 22.6 % (9.0-44.0); LYMPHOCYTE # 1.7 TH/MM3 (1.0-4.8); MEAN CELL VOLUME 91.1 FL (80.0-100.0); MEAN CORPUSCULAR HEMOGLOBIN 29.6 PG (27.0-34.0); MEAN CORPUSCULAR HGB CONC 32.5 % (32.0-36.0); MONO % 10.5 % (0.0-8.0); NEUT % 65.5 % (16.0-70.0); PLATELET COUNT 338 TH/MM3 (150-450); RED BLOOD COUNT 3.26 MIL/MM3 (4.00-5.30); RED CELL DISTRIBUTION WIDTH 13.9 % (11.6-17.2); WHITE BLOOD COUNT 7.5 TH/MM3 (4.0-11.0)
[2017-01-08] VITALS: BP 145/71; PULSE 80; RESP 18; TEMP 98.1; O2SAT 99
[2017-01-08] MEDS: LORazepam 0.5 MG TAB PO PRN (00:23)
[2017-01-08] MEDS: ACETAMINOPHEN 325 MG TAB PO PRN ×3 (00:23→18:40)
[2017-01-08 04:00] VITALS: BP 150/69; PULSE 83; RESP 18; TEMP 98.3; O2SAT 96
[2017-01-08] MEDS: metroNIDAZOLE 500 MG TAB PO SCH ×3 (06:21→21:16)
[2017-01-08 08:00] VITALS: BP 160/76; PULSE 82; RESP 20; TEMP 98.4; O2SAT 100
[2017-01-08] MEDS: INSULIN ASPART SUPPLEMENTAL SCALE SQ SCH ×4 (08:00→21:00)
[2017-01-08] MEDS: LACTOBACILLUS ACIDOPHILUS TAB PO SCH ×3 (08:20→18:00)
[2017-01-08] MEDS: SERTRALINE HCL 50 MG TAB PO SCH (08:21)
[2017-01-08] MEDS: APIXABAN 5 MG TABLET PO SCH ×2 (08:21→21:16)
[2017-01-08] MEDS: PANTOPRAZOLE SOD 40 MG DELAYED RELEASE TAB PO SCH (08:21)
[2017-01-08] MEDS: CLOPIDOGREL 75 MG TAB PO SCH (08:21)
[2017-01-08] MEDS: METOPROLOL SUCCINATE 50 MG EXTENDED RELEASE TAB PO SCH ×2 (08:21→21:16)
[2017-01-08] MEDS: amLODIPine BESYLATE 5 MG TAB PO SCH (08:21)
[2017-01-08] MEDS: SODIUM CHLORIDE 0.9% FLUSH 10 ML FLUSH IV FLUSH SCH ×2 (08:23→21:00)
[2017-01-08] MEDS: LACOSAMIDE 50 MG TAB PO SCH (09:39)
[2017-01-08] MEDS: SODIUM CHLOR 0.9% 1000 ML INJ 1,000 ML IV SCH ×2 (09:41→21:16)
[2017-01-08 12:00] VITALS: BP 130/61; PULSE 83; RESP 18; TEMP 98.1; O2SAT 100
[2017-01-08] MEDS: ONDANSETRON HCL 4 MG/2 ML VIAL IV PUSH PRN (12:22)
[2017-01-08 16:00] VITALS: BP 152/72; PULSE 91; RESP 20; TEMP 98.1; O2SAT 99
--- NOTE | 2017-01-08 19:02 | HHI.PR ---
Subjective Remarks Patient states abdominal pain has resolved Denies diarrhea - states had a BM but stool was soft and more formed deies fevers/chills denies nausea or vomiting Objective Vitals Vital Signs Date Time Temp Pulse Resp B/P (MAP) Pulse Ox O2 Delivery O2 Flow Rate FiO2 01/08/17 16:00 98.1 91 20 152/72 (98) 99 01/08/17 12:00 98.1 83 18 130/61 (84) 100 01/08/17 11:12 21 01/08/17 08:00 Room Air 01/08/17 08:00 98.4 82 20 160/76 (104) 100 01/08/17 04:00 98.3 83 18 150/69 (96) 96 01/08/17 04:00 Room Air 01/08/17 00:00 98.1 80 18 145/71 (95) 99 01/08/17 00:00 Room Air 01/07/17 23:00 Room Air 01/07/17 23:00 98.6 79 18 156/67 (96) 98 01/07/17 21:36 75 166/76 (106) 01/07/17 19:25 98.4 87 16 173/77 (109) 95 I/O 01/07/17 01/07/17 01/07/17 01/08/17 01/08/17 01/08/17 07:00 15:00 23:00 07:00 15:00 23:00 Intake Total 1440 ml 480 ml 240 ml 960 ml Output Total 500 ml Balance 1440 ml 480 ml -260 ml 960 ml Intake Oral 1440 ml 480 ml 240 ml 960 ml Output Urine Total 500 ml # Voids 3 5 4 # Bowel Movements 3 1 1 Result Diagram: 01/07/17205301/07/17 1452 Imaging Last Impressions Shoulder X-Ray 01/04/17 0000 Signed Impressions: Service Date/Time: Wednesday, January 04, 2017 14:45 - CONCLUSION: No acute disease. Jonn Espitia MD Head CT 01/03/17525 Signed Impressions: Service Date/Time: Tuesday, January 03, 2017 05:41 - CONCLUSION: Normal examination. Rc García MD Chest X-Ray 01/03/17525 Signed Impressions: Service Date/Time: Tuesday, January 03, 2017 05:46 - CONCLUSION: 1. No active disease. Rc García MD Elbow X-Ray 01/03/17 0000 Signed Impressions: Service Date/Time: Tuesday, January 03, 2017 16:56 - CONCLUSION: No acute disease. Jonn Espitia MD Abdomen/Pelvis CT 01/03/17 0000 Signed Impressions: Service Date/Time: Tuesday, January 03, 2017 17:16 - CONCLUSION: 1. Small pericardial effusion. 2. Atherosclerosis. 3. No inflammatory changes are identified. Jonn Espitia MD Objective Remarks AAOx3 NAD Clear lungs BL Abdomen soft, NT, mildly distended Procedures None Medications and IVs Current Medications Medications (Trade) Dose Ordered Sig/Georgie Route Start Time Stop Time Status Last Admin (NS Flush) 2 ml UNSCH PRN IV FLUSH 01/03/17 09:15 (NS Flush) 2 ml BID IV FLUSH 01/03/17 21:00 01/07/17 08:10 (Tylenol) 650 mg Q4H PRN PO 01/03/17 09:15 01/08/17 18:40 (Tylenol) 650 mg Q6H PRN PO 01/03/17 09:15 01/08/17 08:22 (Narcan Inj) 0.4 mg UNSCH PRN IV PUSH 01/03/17 09:15 (Eliquis) 5 mg BID PO 01/03/17 10:00 01/08/17 08:21 (Plavix) 75 mg DAILY PO 01/03/17 10:00 01/08/17 08:21 (Toprol Xl) 50 mg BID PO 01/03/17 10:00 01/08/17 08:21 (Protonix) 40 mg DAILY PO 01/04/17 09:00 01/08/17 08:21 (Pravachol) 40 mg HS PO 01/03/17 21:00 01/07/17 20:22 (Zoloft) 50 mg DAILY PO 01/04/17 09:00 01/08/17 08:21 (Duoneb Neb) 1 ampule Q2HR NEB PRN NEB 01/03/17 09:15 (Ativan) 0.5 mg Q6H PRN PO 01/03/17 09:15 01/08/17 00:23 (Vimpat) 50 mg DAILY PO 01/04/17 09:00 01/08/17 09:39 (NovoLOG SUPPLEMENTAL SCALE) 1 ACHS SLIDING SCALE SQ 01/03/17 17:00 (D50w (Syr) Inj) 50 ml UNSCH PRN IV PUSH 01/03/17 13:45 (Glucagon Inj) 1 mg UNSCH PRN OTHER 01/03/17 13:45 (Norvasc) 5 mg DAILY PO 01/05/17 13:30 01/08/17 08:21 (Vasotec Inj) 1.25 mg Q6H PRN IV PUSH 01/05/17 22:00 (Lactinex) 1 tab TID PO 01/06/17 09:00 01/08/17 12:21 (Flagyl) 500 mg Q8HR PO 01/07/17 07:30 01/08/17 12:21 (Zofran Inj) 4 mg Q6HR PRN IV PUSH 01/07/17 08:15 01/08/17 12:22 Sodium Chloride 1,000 ml @ 84 mls/hr [id number] IV 01/07/17 11:00 01/08/17 09:41 Urinary Catheter: No Vascular Central Line Catheter: No A/P Problem List: (1) Encephalopathy acute ICD Code: G93.40 - Encephalopathy, unspecified Status: Resolved Plan: Encephalopathy likely secondary to C. difficile diarrhea infection and possibly toxic secondary to open up on her medications prior to admission. Patient is taking high doses of Valium which her sister states she was taking once every few days. Patient had an elevated lactic acid level and 2 sets of positive blood cultures. Urine culture no growth. The patient was admitted to the medical floor, neuro checks obtained. Encephalopathy now seems to have completely resolved. (2) ANNA (acute kidney injury) ICD Code: N17.9 - Acute kidney failure, unspecified Status: Resolved Plan: Likely due to prerenal azotemia secondary to diarrhea and dehydration. Resolved after IV fluid administration. Continue to monitor BMP. (3) Bacteremia ICD Code: R78.81 - Bacteremia Plan: 2 out of 4 blood culture positive for quite of his negative staph. Unsure of significance. ID consulted, recommended monitoring of antibiotics and monitor repeat blood cultures 72 hours. (4) Clostridium difficile diarrhea ICD Code: A04.7 - Enterocolitis due to Clostridium difficile Plan: Patient started on oral metronidazole. Diarrhea seems to be resolving. Discharge was consulted, GI recommended EGD/colonoscopy, however the patient refuses stating that he wants to follow-up with his outpatient gastroenterology physician. Continue antiemetics, probiotics and metronidazole. (5) CKD (chronic kidney disease) stage 3, GFR 30-59 ml/min ICD Code: N18.3 - Chronic kidney disease, stage 3 (moderate) Status: Acute Plan: Baseline creatinine around 1.2. Continue to monitor BUN/creatinine. (6) Diabetes mellitus ICD Code: E11.9 - Type 2 diabetes mellitus without complications Status: Acute Plan: The patient takes metformin as an outpatient. Metformin held on admission. Continue SSI with insulin NovoLog and continue diabetic diet. (7) Anemia ICD Code: D64.9 - Anemia, unspecified Status: Chronic Plan: Patient has normocytic anemia based on postural views. Hemoglobin currently stable, monitor CBC as needed. (8) HTN (hypertension) ICD Code: I10 - Essential (primary) hypertension Status: Chronic Plan: Blood pressure seems to be stable. Continue amlodipine 5 mg by mouth daily. Continue to monitor vital signs. Assessment and Plan GI prophylaxis: PPI DVT prophylaxis: Eliquis for CVA. Discharge Planning Possible discharge in a.m. Problem Qualifiers (1) Diabetes mellitus: Qualified Codes: E11.8 - Type 2 diabetes mellitus with unspecified complications (2) Anemia: Qualified Codes: D64.9 - Anemia, unspecified (3) HTN (hypertension): Qualified Codes: I10 - Essential (primary) hypertension Olu Gonsalves MD Jan 08, 2017 19:02
[2017-01-08 20:00] VITALS: BP 146/70; PULSE 82; RESP 18; TEMP 97.8; O2SAT 98
[2017-01-08] MEDS: PRAVASTATIN SOD 40 MG TAB PO SCH (21:16)
[2017-01-09] VITALS: BP 159/72; PULSE 81; RESP 18; TEMP 99.3; O2SAT 97
[2017-01-09 04:00] VITALS: BP 140/70; PULSE 77; RESP 18; TEMP 98.4; O2SAT 96
[2017-01-09] MEDS: metroNIDAZOLE 500 MG TAB PO SCH ×3 (04:59→20:22)
[2017-01-09] MEDS: ACETAMINOPHEN 325 MG TAB PO PRN (05:00)
[2017-01-09] MEDS: INSULIN ASPART SUPPLEMENTAL SCALE SQ SCH ×4 (07:47→20:20)
[2017-01-09] MEDS: SODIUM CHLORIDE 0.9% FLUSH 10 ML FLUSH IV FLUSH SCH ×2 (07:47→20:22)
[2017-01-09] MEDS: ONDANSETRON HCL 4 MG/2 ML VIAL IV PUSH PRN ×2 (07:48→17:00)
[2017-01-09] MEDS: SERTRALINE HCL 50 MG TAB PO SCH (07:49)
[2017-01-09] MEDS: LACTOBACILLUS ACIDOPHILUS TAB PO SCH ×3 (07:49→16:58)
[2017-01-09] MEDS: CLOPIDOGREL 75 MG TAB PO SCH (07:49)
[2017-01-09] MEDS: amLODIPine BESYLATE 5 MG TAB PO SCH (07:49)
[2017-01-09] MEDS: PANTOPRAZOLE SOD 40 MG DELAYED RELEASE TAB PO SCH (07:49)
[2017-01-09] MEDS: LACOSAMIDE 50 MG TAB PO SCH (07:49)
[2017-01-09] MEDS: LORazepam 0.5 MG TAB PO PRN (07:49)
[2017-01-09] MEDS: METOPROLOL SUCCINATE 50 MG EXTENDED RELEASE TAB PO SCH ×2 (07:49→20:22)
[2017-01-09] MEDS: APIXABAN 5 MG TABLET PO SCH ×2 (07:49→20:22)
[2017-01-09 08:10] VITALS: BP 159/71; PULSE 74; RESP 18; TEMP 98.3; O2SAT 97
[2017-01-09] MEDS: SODIUM CHLOR 0.9% 1000 ML INJ 1,000 ML IV SCH ×2 (11:00→20:24)
[2017-01-09] MEDS ORDERED: APIX5TAB PO (11:46)
[2017-01-09] MEDS ORDERED: METR-1 PO (11:46)
--- NOTE | 2017-01-09 11:48 | HHI.DCPOC ---
Discharge Care Plan Diagnosis: (1) Encephalopathy (2) ANNA (acute kidney injury) (3) Clostridium difficile diarrhea (4) CKD (chronic kidney disease) stage 3, GFR 30-59 ml/min (5) HTN (hypertension) (6) Bacteremia (7) Anemia Goals to Promote Your Health * To prevent worsening of your condition and complications * To maintain your health at the optimal level Directions to Meet Your Goals Take your medications as prescribed Follow your dietary instruction Follow activity as directed Keep your appointments as scheduled Take your immunizations and boosters as scheduled If your symptoms worsen call your PCP, if no PCP go to Urgent Care Center or Emergency Room Smoking is Dangerous to Your Health. Avoid second hand smoke Call the 24-hour hour crisis hotline for domestic abuse at Olu Gonsalves MD Jan 09, 2017 11:48
--- NOTE | 2017-01-09 12:04 | HHI.DS ---
Discharge Summary Admission Date Jan 07, 2017 at 09:14 Discharge Date: Jan 09, 2017 Admitting Diagnosis altered mental status. Acute kidney injury (1) Encephalopathy acute ICD Code: G93.40 - Encephalopathy, unspecified Diagnosis: Principal Status: Resolved (2) ANNA (acute kidney injury) ICD Code: N17.9 - Acute kidney failure, unspecified Diagnosis: Principal Status: Resolved (3) Bacteremia ICD Code: R78.81 - Bacteremia Diagnosis: Principal (4) Clostridium difficile diarrhea ICD Code: A04.7 - Enterocolitis due to Clostridium difficile Diagnosis: Principal (5) CKD (chronic kidney disease) stage 3, GFR 30-59 ml/min ICD Code: N18.3 - Chronic kidney disease, stage 3 (moderate) Diagnosis: Secondary Status: Acute (6) Diabetes mellitus ICD Code: E11.9 - Type 2 diabetes mellitus without complications Diagnosis: Secondary Status: Acute (7) Anemia ICD Code: D64.9 - Anemia, unspecified Diagnosis: Principal Status: Chronic (8) HTN (hypertension) ICD Code: I10 - Essential (primary) hypertension Diagnosis: Secondary Status: Chronic Procedures None Brief History - From Admission The patient is a 76-year-old female with a past medical history of CVA and polio who is presenting to the hospital with altered mental status. The patient currently lives with her sister, who happens to be her nurse instructor. Apparently the patient missed her morning medications yesterday and doubled up on her medications in the evening. After that the patient was found to be lethargic and her sister tried to track her out of bed and the patient fell on top of her sister. They both sustained some abrasions from the fall. The patient's sister does believe that doubling up on the medications caused her sisters confusion. The patient is complaining of urinating a lot but otherwise is unable to describe the circumstances leading to her hospitalization. She does endorse some vague aches and pains. She denies any diarrhea or fever. She did endorse some abdominal pain in her right lower abdomen. She was unable to be more specific. The patient's sister states that the patient Discussed with her sister over the phone, who helped with the history. CBC/BMP: 01/07/17205301/07/17 1452 Significant Findings Laboratory Tests Test 01/06/17 13:23 01/06/17 18:50 01/07/17 14:52 01/07/17 20:54 Stool C. difficile Toxin (PCR) POSITIVE (NEGATIVE) Urine Leukocyte Esterase TRACE (NEG) Creatinine 1.15 MG/DL (0.50-1.00) Random Glucose 124 MG/DL (74-106) Calcium Level 8.4 MG/DL (8.5-10.1) Estimat Glomerular Filtration Rate 46 ML/MIN (>89) Red Blood Count 3.26 MIL/MM3 (4.00-5.30) Hemoglobin 9.7 GM/DL (11.6-15.3) Hematocrit 29.7 % (35.0-46.0) Mean Platelet Volume 6.9 FL (7.0-11.0) Monocytes (%) (Auto) 10.5 % (0.0-8.0) Imaging Last Impressions Shoulder X-Ray 01/04/17 0000 Signed Impressions: Service Date/Time: Wednesday, January 04, 2017 14:45 - CONCLUSION: No acute disease. Jonn Espitia MD Head CT 01/03/17525 Signed Impressions: Service Date/Time: Tuesday, January 03, 2017 05:41 - CONCLUSION: Normal examination. Rc García MD Chest X-Ray 01/03/17525 Signed Impressions: Service Date/Time: Tuesday, January 03, 2017 05:46 - CONCLUSION: 1. No active disease. Rc García MD Elbow X-Ray 01/03/17 0000 Signed Impressions: Service Date/Time: Tuesday, January 03, 2017 16:56 - CONCLUSION: No acute disease. Jonn sEpitia MD Abdomen/Pelvis CT 01/03/17 0000 Signed Impressions: Service Date/Time: Tuesday, January 03, 2017 17:16 - CONCLUSION: 1. Small pericardial effusion. 2. Atherosclerosis. 3. No inflammatory changes are identified. Jonn Espitia MD PE at Discharge AAOx3 NAD Clear lungs BL Abdomen soft, NT, mildly distended Pt update on day of discharge The patient denies any further diarrhea, abdominal pain, nausea or vomiting. Denies fevers or chills. Appetite is improving. Hospital Course (1) Encephalopathy acute Encephalopathy likely secondary to C. difficile diarrhea infection and possibly toxic secondary to open up on her medications prior to admission. Patient was taking high doses of Valium which her sister states she was taking once every few days. Patient had an elevated lactic acid level and 2 sets of positive blood cultures. Urine culture no growth. The patient was admitted to the medical floor, neuro checks were followed. Encephalopathy completely resolved prior to discharge. (2) ANNA (acute kidney injury) Likely due to prerenal azotemia secondary to diarrhea and dehydration. Resolved after IV fluid administration. Continue to monitor BMP. (3) Bacteremia 2 out of 4 blood culture positive for Staph Capitis-ureolyticus and Staph Hominis-Hominis. Unsure of significance. ID consulted, recommended monitoring of antibiotics and monitor repeat blood cultures 72 hours. Repeat Blood cultures negative 5 days. (4) Clostridium difficile diarrhea Patient started on oral metronidazole. Diarrhea seems to be resolving. Discharge was consulted, GI recommended EGD/colonoscopy, however the patient refuses stating that he wants to follow-up with his outpatient gastroenterology physician. Continue antiemetics, probiotics and metronidazole for a total of 14 days upon discharge. (5) CKD (chronic kidney disease) stage 3, GFR 30-59 ml/min Baseline creatinine around 1.2. BUN/creatinine monitored throughout hospital stay, nephrotoxins avoided and strict I's and O's were monitored. Creatinine down to baseline at 1.15. (6) Diabetes mellitus The patient takes metformin as an outpatient. Metformin held on admission. Continue SSI with insulin NovoLog and continue diabetic diet. Blood sugars remained stable during hospital stay. (7) Anemia Patient has normocytic anemia based on past records. Hemoglobin was monitored and remained stable. As stated above GI was consulted and patient refused EGD/colonoscopy. (8) HTN (hypertension) \Blood pressure seems to be stable. Continue amlodipine 5 mg by mouth daily. Continue to monitor vital signs. GI prophylaxis: PPI DVT prophylaxis: Eliquis for CVA. Pt Condition on Discharge: Stable Discharge Disposition: Discharge to SNF Discharge Time: > 30 minutes Discharge Instructions DIET: Follow Instructions for: Heart Healthy Diet Activities you can perform: See Additionl Instruction Other Activity Instructions: out of bed with assistance Follow up Referrals: Gastroenterology recommeneded to have EGD/colonoscopy but patient and POA refused PCP Follow-up - 1 Week New Medications: Apixaban (Eliquis) 5 Mg Tab 5 MG PO BID for Blood Clot Prevention, #62 TAB Metronidazole (Flagyl) 500 Mg Tab 500 MG PO Q8HR for Infection, #36 TAB Continued Medications: Albuterol 8.5 GM Inh (Proair Hfa 8.5 GM Inh) 90 Mcg/Act Aer 2 PUFF INH Q6H PRN for SHORTNESS OF BREATH, #1 INHALER 0 Refills 108 mcg/actuation Diazepam (Valium) 10 Mg Tab 10 MG PO TID PRN for ANXIETY, TAB 0 Refills Lacosamide (Vimpat) 100 Mg Tab 100 MG PO BID for Control Seizures, #60 TAB 0 Refills Metformin ER (Metformin ER) 1,000 Mg Tatiana 1000 MG PO BID for Blood Sugar Management, #30 TAB 0 Refills With evening meal Metoprolol Succinate ER 24 HR (Toprol XL) 50 Mg Tab 50 MG PO BID, #30 TAB 0 Refills Pantoprazole (Pantoprazole) 40 Mg Tab 40 MG PO DAILY for Reflux, #30 TAB 0 Refills Pravastatin (Pravachol) 40 Mg Tab 40 MG PO HS for Cholesterol Management, #30 TAB 0 Refills Sertraline (Sertraline) 25 Mg Tab 50 MG PO DAILY, #30 TAB 0 Refills Discontinued Medications: Apixaban (Eliquis) 5 Mg Tab 5 MG PO BID for Blood Clot Prevention, #180 TAB 1 Refill Please take Eliquis 10mg (2 tablets) twice a day for the first 6 days upon discharge. Then continue Eliquis with 5mg (1 tablet) twice a day for up to 3 months. Apixaban (Eliquis) 5 Mg Tab 10 MG PO BID, #10 TAB Please take Eliquis 10mg (2 tablets) twice a day for the first 6 days upon discharge. Then continue Eliquis with 5mg (1 tablet) twice a day for up to 3 months. Baclofen (Baclofen) 10 Mg Tab 10 MG PO TID for Muscle Spasm, TAB 0 Refills Clopidogrel (Plavix) 75 Mg Tab 75 MG PO DAILY for Blood Clot Prevention, #30 TAB 0 Refills Dexlansoprazole (Dexilant) 60 Mg Luis Fernando.bp 1 CAP PO DAILY Pravastatin (Pravastatin) 40 Mg Tab 40 MG PO DAILY for Cholesterol Management, #30 TAB 0 Refills Olu Gonsalves MD Jan 09, 2017 12:04
[2017-01-09] MEDS ORDERED: TRAM50TA PO (12:06)
[2017-01-09 12:40] VITALS: BP 160/74; PULSE 81; RESP 18; TEMP 98.8; O2SAT 97
[2017-01-09 16:42] VITALS: BP 156/72; PULSE 83; RESP 18; TEMP 99; O2SAT 98
[2017-01-09 20:00] VITALS: BP 127/69; PULSE 70; PULSE 82; RESP 16; TEMP 98.7; O2SAT 97
[2017-01-09] MEDS: PRAVASTATIN SOD 40 MG TAB PO SCH (20:22)
[2017-01-10] VITALS: BP 130/64; PULSE 74; RESP 16; TEMP 99.1; O2SAT 95
[2017-01-10 04:00] VITALS: BP 137/68; PULSE 71; RESP 16; TEMP 99.5; O2SAT 96
[2017-01-10] MEDS: metroNIDAZOLE 500 MG TAB PO SCH ×2 (05:08→13:39)
[2017-01-10 08:00] VITALS: BP 124/63; PULSE 77; RESP 16; TEMP 98; O2SAT 95
[2017-01-10] MEDS: INSULIN ASPART SUPPLEMENTAL SCALE SQ SCH ×2 (08:00→12:00)
[2017-01-10] MEDS: LACOSAMIDE 50 MG TAB PO SCH (09:42)
[2017-01-10] MEDS: CLOPIDOGREL 75 MG TAB PO SCH (09:42)
[2017-01-10] MEDS: SODIUM CHLORIDE 0.9% FLUSH 10 ML FLUSH IV FLUSH SCH (09:42)
[2017-01-10] MEDS: LACTOBACILLUS ACIDOPHILUS TAB PO SCH ×2 (09:42→13:39)
[2017-01-10] MEDS: PANTOPRAZOLE SOD 40 MG DELAYED RELEASE TAB PO SCH (09:42)
[2017-01-10] MEDS: SERTRALINE HCL 50 MG TAB PO SCH (09:42)
[2017-01-10] MEDS: APIXABAN 5 MG TABLET PO SCH (09:42)
[2017-01-10] MEDS: amLODIPine BESYLATE 5 MG TAB PO SCH (09:42)
[2017-01-10] MEDS: METOPROLOL SUCCINATE 50 MG EXTENDED RELEASE TAB PO SCH (09:43)
[2017-01-10] MEDS: ACETAMINOPHEN 325 MG TAB PO PRN (09:44)
[2017-01-10] MEDS: SODIUM CHLOR 0.9% 1000 ML INJ 1,000 ML IV SCH (10:30)
[2017-01-10 12:00] VITALS: BP 130/60; PULSE 68; RESP 16; TEMP 98.2; O2SAT 98
== END 2017-01-10 14:43 | DRG 917 ==
LOC: NEPC 05:01 → NEDA 07:20 → INTOOBSV 07:20 → NEPGCP 10:57 → OBSVTOIN 01-07 09:14 → N04B 01-07 22:21
PROVIDERS: ADMIT Hospitalist; ATTEND Hospitalist
DX: T50.991A Poisoning by other drugs, medicaments and biological substances, accidental (unintentional), initial encounter (principal); G92 Toxic encephalopathy; A04.72 Enterocolitis due to Clostridium difficile, not specified as recurrent; N17.9 Acute kidney failure, unspecified; R78.81 Bacteremia; D64.9 Anemia, unspecified; S40.811A Abrasion of right upper arm, initial encounter; F03.90 Unspecified dementia, unspecified severity, without behavioral disturbance, psychotic disturbance, mood disturbance, and anxiety; I12.9 Hypertensive chronic kidney disease with stage 1 through stage 4 chronic kidney disease, or unspecified chronic kidney disease; E11.22 Type 2 diabetes mellitus with diabetic chronic kidney disease; N18.3 Chronic kidney disease, stage 3 (moderate); G40.909 Epilepsy, unspecified, not intractable, without status epilepticus; R32 Unspecified urinary incontinence; M19.90 Unspecified osteoarthritis, unspecified site; F41.9 Anxiety disorder, unspecified; F32.9 Major depressive disorder, single episode, unspecified; E78.00 Pure hypercholesterolemia, unspecified; K21.9 Gastro-esophageal reflux disease without esophagitis; E86.0 Dehydration; J42 Unspecified chronic bronchitis; Z96.651 Presence of right artificial knee joint; Z79.84 Long term (current) use of oral hypoglycemic drugs; S40.812A Abrasion of left upper arm, initial encounter; W18.39XA Other fall on same level, initial encounter; Y93.89 Activity, other specified; Y92.003 Bedroom of unspecified non-institutional (private) residence as the place of occurrence of the external cause; M25.511 Pain in right shoulder; M25.521 Pain in right elbow; M79.671 Pain in right foot; Z85.41 Personal history of malignant neoplasm of cervix uteri; Z86.73 Personal history of transient ischemic attack (TIA), and cerebral infarction without residual deficits; Z86.12 Personal history of poliomyelitis
CPT/HCPCS: 36600; 70450; 71010; 73030; 73080; 74176; 76937; 80048; 80053; 81001; 82140; 82550; 82805; 82948; 83605; 83690; 83735; 83880; 84443; 84484; 85007; 85025; 85027; 85610; 85730; 86403; 87040; 87077; 87086; 87186; 87205; 87493; 87506; 93005; 96361; 96365; 96366; 96375; G0378; G8987-GO; G8987-GP; G8988-GO; G8988-GP; J0696; J2405; J2543; J3370; J7030; J7050; Q9963

== ENCOUNTER 2017-02-04 20:00 | Emergency (ER) | payer MEDICARE, OTHER ==
[~2017-02-04] VITALS: Ht 172.7 cm; Wt 65.9 kg
[~2017-02-04 20:00] MED LIST changes: +LACO100 PO; -LACO50 PO; +METR-1 PO; -PLAV75TA29 PO; +TRAM50TA PO
[2017-02-04 20:19] VITALS: BP 143/65; PULSE 71; RESP 18; TEMP 99.1; O2SAT 100
--- NOTE | 2017-02-04 20:48 | PD ---
HPI Chief Complaint: General Weakness Time Seen by Provider: 20:21 Travel History International Travel<30 days: No Contact w/Intl Traveler<30days: No Traveled to known affect area: No History of Present Illness HPI Patient comes from home via EMS complaining of shortness of breath and feeling terrible. Patient's states that her sister helps take care of her but did not put her to bed last night just let her sleep in a chair. Patient states that she has got up and ambulated today but just does not feel well overall and is feeling short of breath. Patient denies any chest pain with this, headache, nausea, vomiting, abdominal pain, loss or change in bowel or bladder, numbness or tingling anywhere. Patient denies anything making this better or worse. PFSH Past Medical History Hx Anticoagulant Therapy: Yes (plavix) Anemia: Yes Arthritis: Yes Anxiety: Yes Depression: Yes Cancer: Yes (CERVICAL CA) Cardiovascular Problems: Yes High Cholesterol: Yes Chest Pain: No Congestive Heart Failure: No Cerebrovascular Accident: Yes Diabetes: Yes Patient Takes Glucophage: No Diminished Hearing: No Gastrointestinal Disorders: Yes (esophageal strictures) GERD: Yes Genitourinary: Yes (incontinent) Headaches: No Hypertension: Yes Musculoskeletal: Yes (fracture to right ankle ) Neurologic: Yes (SEIZURE DISORDER, HX CVA) Reproductive: Yes (CERVICAL CANCER) Immunizations Current: No Migraines: No Seizures: Yes PNEUMOCCOCAL Vaccine (Year): 2 Menopausal: Yes Past Surgical History Appendectomy: Yes Cardiac Surgery: No Cholecystectomy: Yes Ear Surgery: No Endocrine Surgery: Yes Eye Surgery: No Genitourinary Surgery: Yes Gynecologic Surgery: Yes (HYSTERECTOMY,CERVICAL CA REMOVED.) Hysterectomy: No Neurologic Surgery: Yes (C4,C5,C6 PLATE PLACED) Oral Surgery: Yes Thoracic Surgery: No Other Surgery: Yes (LAPAROSCOPIC SP(WRAP STOMACH AROUND ESOPHAGUS TO HELP WITH GERD)) Social History Alcohol Use: No (DENIES) Tobacco Use: No (DENIES) Substance Use: No Allergies-Medications (Allergen,Severity, Reaction): Coded Allergies: Influenza Virus Vaccines (Unverified Allergy, Intermediate, 02/04/17) "ALLERGIC TO EGGS SO I CAN NOT HAVE THE FLU SHOT" egg (Unverified Allergy, Intermediate, 02/04/17) codeine (Unverified Allergy, Mild, 02/04/17) meperidine (Unverified Allergy, Mild, 02/04/17) morphine (Unverified Allergy, Mild, 02/04/17) acetaminophen (Unverified Adverse Reaction, Mild, HEADACHE, 02/04/17) hydrocodone (Unverified Adverse Reaction, Mild, HEADACHE, 02/04/17) Reported Meds & Prescriptions Reported Meds & Active Scripts Active Eliquis (Apixaban) 5 Mg Tab 5 Mg PO BID Reported Baclofen 10 Mg Tab 10 Mg PO TID Clopidogrel (Clopidogrel Bisulfate) 75 Mg Tab 75 Mg PO DAILY Dexilant (Dexlansoprazole) 60 Mg bp Trazodone (Trazodone HCl) 150 Mg Tablet 150 Mg PO HS Vimpat (Lacosamide) 100 Mg Tab 100 Mg PO BID Proair Hfa 8.5 GM Inh (Albuterol Sulfate) 90 Mcg/Act Aer 2 Puff INH Q6H PRN 108 mcg/actuation Metformin ER (Metformin HCl) 1,000 Mg Tatiana 1,000 Mg PO BID With evening meal Toprol XL (Metoprolol Succinate) 50 Mg Tab 50 Mg PO BID Pravachol (Pravastatin) 40 Mg Tab 40 Mg PO HS Sertraline (Sertraline HCl) 25 Mg Tab 50 Mg PO DAILY Review of Systems Except as stated in HPI: all other systems reviewed are Neg Physical Exam Narrative GENERAL: Well-developed, well nourished, in no acute distress, and non-ill appearing. SKIN: Focused skin assessment warm and dry. HEAD: Atraumatic. Normocephalic. EYES: Pupils equal and round. EOMI. No scleral icterus. No injection or drainage. ENT: No nasal bleeding or discharge. Mucous membranes pink and moist. NECK: Trachea midline. Supple. No nuclear rigidity. CARDIOVASCULAR: Regular rate and rhythm. No murmur appreciated. RESPIRATORY: No accessory muscle use. No respiratory distress. Clear to auscultation. Breath sounds equal bilaterally. GASTROINTESTINAL: Abdomen soft, non-tender, nondistended, and no guarding. Hepatic and splenic margins not palpable. Normal bowel sounds 4. No pulsatile mass. MUSCULOSKELETAL: No obvious deformities. No clubbing. No cyanosis. No edema. Full range of motion. 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 NEUROLOGICAL: Awake and alert. No obvious cranial nerve deficits. Motor grossly within normal limits. Normal speech. PSYCHIATRIC: Appropriate mood and affect; insight and judgment normal. Data Data Last Documented VS Vital Signs Date Time Temp Pulse Resp B/P (MAP) Pulse Ox O2 Delivery O2 Flow Rate FiO2 02/05/17 10:57 02/04/17 23:06 71 20 100 Nasal Cannula 2.00 02/04/17 20:19 99.1 Orders Orders Electrocardiogram (02/04/17 20:23) Complete Blood Count With Diff (02/04/17 20:23) Comprehensive Metabolic Panel (02/04/17 20:23) Prothrombin Time / Inr (Pt) (02/04/17 20:23) Act Partial Throm Time (Ptt) (02/04/17 20:23) Lactic Acid Sepsis Protocol (02/04/17 20:23) Magnesium (Mg) (02/04/17 20:23) Ckmb (Isoenzyme) Profile (02/04/17 20:23) Troponin I (02/04/17 20:23) Urinalysis - C+S If Indicated (02/04/17 20:23) Chest, Single Ap (02/04/17 20:23) Ecg Monitoring (02/04/17 20:23) Iv Access Insert/Monitor (02/04/17 20:23) Oximetry (02/04/17 20:23) Oxygen Administration (02/04/17 20:23) Cath For Specimen (02/04/17 20:46) Ed Discharge Order (02/05/17 00:03) Labs Laboratory Tests Test 02/04/17 20:30 02/04/17 23:04 White Blood Count 7.2 TH/MM3 Red Blood Count 3.31 MIL/MM3 Hemoglobin 9.7 GM/DL Hematocrit 29.7 % Mean Corpuscular Volume 89.7 FL Mean Corpuscular Hemoglobin 29.3 PG Mean Corpuscular Hemoglobin Concent 32.7 % Red Cell Distribution Width 14.5 % Platelet Count 335 TH/MM3 Mean Platelet Volume 7.8 FL Neutrophils (%) (Auto) 64.5 % Lymphocytes (%) (Auto) 24.3 % Monocytes (%) (Auto) 8.9 % Eosinophils (%) (Auto) 1.7 % Basophils (%) (Auto) 0.6 % Neutrophils # (Auto) 4.6 TH/MM3 Lymphocytes # (Auto) 1.7 TH/MM3 Monocytes # (Auto) 0.6 TH/MM3 Eosinophils # (Auto) 0.1 TH/MM3 Basophils # (Auto) 0.0 TH/MM3 CBC Comment DIFF FINAL Differential Comment Prothrombin Time 10.5 SEC Prothromb Time International Ratio 1.0 RATIO Activated Partial Thromboplast Time 20.0 SEC Blood Urea Nitrogen 21 MG/DL Creatinine 1.48 MG/DL Random Glucose 112 MG/DL Total Protein 7.3 GM/DL Albumin 3.5 GM/DL Calcium Level 9.0 MG/DL Magnesium Level 2.3 MG/DL Alkaline Phosphatase 94 U/L Aspartate Amino Transf (AST/SGOT) 15 U/L Alanine Aminotransferase (ALT/SGPT) 21 U/L Total Bilirubin 0.1 MG/DL Sodium Level 140 MEQ/L Potassium Level 4.5 MEQ/L Chloride Level 105 MEQ/L Carbon Dioxide Level 27.0 MEQ/L Anion Gap 8 MEQ/L Estimat Glomerular Filtration Rate 34 ML/MIN Lactic Acid Level 1.5 mmol/L Total Creatine Kinase 31 U/L Troponin I LESS THAN 0.02 NG/ML Urine Color YELLOW Urine Turbidity CLEAR Urine pH 7.0 Urine Specific [place] 1.016 Urine Protein TRACE mg/dL Urine Glucose (UA) NEG mg/dL Urine Ketones NEG mg/dL Urine Occult Blood NEG Urine Nitrite NEG Urine Bilirubin NEG Urine Urobilinogen LESS THAN 2.0 MG/DL Urine Leukocyte Esterase NEG Urine WBC LESS THAN 1 /hpf Urine Hyaline Casts 1 /lpf Urine Mucus FEW /lpf Microscopic Urinalysis Comment CATH-CULT NOT IND MDM Medical Decision Making Medical Screen Exam Complete: Yes Emergency Medical Condition: Yes Differential Diagnosis UTI, pneumonia, COPD, generalized weakness, metabolic disturbance, anemia, other Narrative Course Patient was seen and examined. Initial laboratory and radiological studies were were ordered and reviewed with the exception of UA and EKG that are pending. Patient was signed out to Dr. Cho at the end of my shift. Please see her documentation for final diagnosis and disposition. Michael Stafford Feb 04, 2017 20:48
[2017-02-04] MEDS ORDERED: BACL10TA PO (20:52)
[2017-02-04] MEDS ORDERED: CLOP75TA PO (20:52)
[2017-02-04] MEDS ORDERED: TRAZ1TAB14 PO (20:52)
[2017-02-04] MEDS ORDERED: DEXI60CA3 (20:52)
--- NOTE | 2017-02-04 21:03 | RADRPT ---
EXAM DATE/TIME: 02/04/2017 20:47 [facility] COMPARISON: CHEST SINGLE AP, January 03, 2017, 5:46. INDICATIONS : Shortness of breath. MEDICAL HISTORY : Diabetes mellitus type I. Hypertension Cerebrovascular disease. SURGICAL HISTORY : Appendectomy. Cholecystectomy. ENCOUNTER: Initial ACUITY: 1 day PAIN SCORE: 0/10 LOCATION: Bilateral chest FINDINGS: A single view of the chest demonstrates the lungs to be symmetrically aerated without evidence of mas s, infiltrate or effusion. The cardiomediastinal contours are unremarkable. Osseous structures are intact. CONCLUSION: 1. No active disease. Mild scoliosis. Previous fusion cervical spine. Rc García MD on February 04, 2017 at 21:00 Board Certified Radiologist. This report was verified electronically.
[2017-02-04 21:14] LABS: AUTOMATED NEUTROPHIL # 4.6 TH/MM3 (1.8-7.7); BASOPHIL % 0.6 % (0.0-2.0); EOSINOPHIL # 0.1 TH/MM3 (0-0.4); EOSINOPHIL % 1.7 % (0.0-4.0); HEMATOCRIT 29.7 % (35.0-46.0); HEMOGLOBIN 9.7 GM/DL (11.6-15.3); LYMPH % 24.3 % (9.0-44.0); LYMPHOCYTE # 1.7 TH/MM3 (1.0-4.8); MEAN CELL VOLUME 89.7 FL (80.0-100.0); MEAN CORPUSCULAR HEMOGLOBIN 29.3 PG (27.0-34.0); MEAN CORPUSCULAR HGB CONC 32.7 % (32.0-36.0); MEAN PLATELET VOLUME 7.8 FL (7.0-11.0); MONO % 8.9 % (0.0-8.0); MONOCYTE # 0.6 TH/MM3 (0-0.9); NEUT % 64.5 % (16.0-70.0); PLATELET COUNT 335 TH/MM3 (150-450); RED BLOOD COUNT 3.31 MIL/MM3 (4.00-5.30); RED CELL DISTRIBUTION WIDTH 14.5 % (11.6-17.2); WHITE BLOOD COUNT 7.2 TH/MM3 (4.0-11.0)
[2017-02-04 21:24] LABS: PROTHROMBIN TIME - PATIENT 10.5 SEC (9.8-11.6)
[2017-02-04 21:26] LABS: ALBUMIN 3.5 GM/DL (3.4-5.0); AST (GOT) 15 U/L (15-37); BLOOD UREA NITROGEN 21 MG/DL (7-18); CHLORIDE 105 MEQ/L (98-107); CREATININE 1.48 MG/DL (0.50-1.00); GLOMERULAR FILTRATION RATE 34 ML/MIN (>89); GLUCOSE,RANDOM 112 MG/DL (74-106); MAGNESIUM 2.3 MG/DL (1.5-2.5); SODIUM (NA) 140 MEQ/L (136-145)
[2017-02-04 21:28] LABS: ALT (GPT) 21 U/L (10-53)
[2017-02-04 21:31] LABS: ALKALINE PHOSPHATASE 94 U/L (45-117); TOTAL BILIRUBIN ADULT 0.1 MG/DL (0.2-1.0); TOTAL PROTEIN 7.3 GM/DL (6.4-8.2); TROPONIN I LESS THAN 0.02 NG/ML (0.02-0.05)
[2017-02-04 23:06] VITALS: BP 121/58; PULSE 71; RESP 20; O2SAT 100
[2017-02-04 23:30] LABS: BILIRUBIN, URINE NEG (NEG); BLOOD, URINE NEG (NEG); GLUCOSE,URINE NEG (NEG); HYALINE CAST, URINE 1 /lpf (RARE); KETONE, URINE NEG (NEG); MUCUS URINE FEW /lpf (OCC); NITRITE,URINE NEG (NEG); URINE COLOR YELLOW (YELLW/STRAW); URINE LEUKOCYTE ESTERASE NEG (NEG)
--- NOTE | 2017-02-05 00:03 | PD ---
Data Data Last Documented VS Vital Signs Date Time Temp Pulse Resp B/P (MAP) Pulse Ox O2 Delivery O2 Flow Rate FiO2 02/04/17 23:06 71 20 121/58 (79) 100 Nasal Cannula 2.00 02/04/17 20:19 99.1 Orders Orders Electrocardiogram (02/04/17 20:23) Complete Blood Count With Diff (02/04/17 20:23) Comprehensive Metabolic Panel (02/04/17 20:23) Prothrombin Time / Inr (Pt) (02/04/17 20:23) Act Partial Throm Time (Ptt) (02/04/17 20:23) Lactic Acid Sepsis Protocol (02/04/17 20:23) Magnesium (Mg) (02/04/17 20:23) Ckmb (Isoenzyme) Profile (02/04/17 20:23) Troponin I (02/04/17 20:23) Urinalysis - C+S If Indicated (02/04/17 20:23) Chest, Single Ap (02/04/17 20:23) Ecg Monitoring (02/04/17 20:23) Iv Access Insert/Monitor (02/04/17 20:23) Oximetry (02/04/17 20:23) Oxygen Administration (02/04/17 20:23) Cath For Specimen (02/04/17 20:46) Labs Laboratory Tests Test 02/04/17 20:30 02/04/17 23:04 White Blood Count 7.2 TH/MM3 Red Blood Count 3.31 MIL/MM3 Hemoglobin 9.7 GM/DL Hematocrit 29.7 % Mean Corpuscular Volume 89.7 FL Mean Corpuscular Hemoglobin 29.3 PG Mean Corpuscular Hemoglobin Concent 32.7 % Red Cell Distribution Width 14.5 % Platelet Count 335 TH/MM3 Mean Platelet Volume 7.8 FL Neutrophils (%) (Auto) 64.5 % Lymphocytes (%) (Auto) 24.3 % Monocytes (%) (Auto) 8.9 % Eosinophils (%) (Auto) 1.7 % Basophils (%) (Auto) 0.6 % Neutrophils # (Auto) 4.6 TH/MM3 Lymphocytes # (Auto) 1.7 TH/MM3 Monocytes # (Auto) 0.6 TH/MM3 Eosinophils # (Auto) 0.1 TH/MM3 Basophils # (Auto) 0.0 TH/MM3 CBC Comment DIFF FINAL Differential Comment Prothrombin Time 10.5 SEC Prothromb Time International Ratio 1.0 RATIO Activated Partial Thromboplast Time 20.0 SEC Blood Urea Nitrogen 21 MG/DL Creatinine 1.48 MG/DL Random Glucose 112 MG/DL Total Protein 7.3 GM/DL Albumin 3.5 GM/DL Calcium Level 9.0 MG/DL Magnesium Level 2.3 MG/DL Alkaline Phosphatase 94 U/L Aspartate Amino Transf (AST/SGOT) 15 U/L Alanine Aminotransferase (ALT/SGPT) 21 U/L Total Bilirubin 0.1 MG/DL Sodium Level 140 MEQ/L Potassium Level 4.5 MEQ/L Chloride Level 105 MEQ/L Carbon Dioxide Level 27.0 MEQ/L Anion Gap 8 MEQ/L Estimat Glomerular Filtration Rate 34 ML/MIN Lactic Acid Level 1.5 mmol/L Total Creatine Kinase 31 U/L Troponin I LESS THAN 0.02 NG/ML Urine Color YELLOW Urine Turbidity CLEAR Urine pH 7.0 Urine Specific [place] 1.016 Urine Protein TRACE mg/dL Urine Glucose (UA) NEG mg/dL Urine Ketones NEG mg/dL Urine Occult Blood NEG Urine Nitrite NEG Urine Bilirubin NEG Urine Urobilinogen LESS THAN 2.0 MG/DL Urine Leukocyte Esterase NEG Urine WBC LESS THAN 1 /hpf Urine Hyaline Casts 1 /lpf Urine Mucus FEW /lpf Microscopic Urinalysis Comment CATH-CULT NOT IND MDM Supervised Visit with LOLY: Yes Narrative Course The history, exam, and medical decision-making in the associated midlevel provider note were completed with my assistance. I reviewed and agree with the findings presented. I attest that I had a [id number] encounter with the patient on the same day, and personally performed and documented my assessment and findings in the medical record. *My assessment and Findings: This is a 76-year-old female who presents to the emergency department with multiple nonspecific complaints. She's not a great historian. I called the patient's sister who is her caregiver and power of patent prosecution attorney. Her sister says she thought she was choking and that's why she called the ambulance. The patient has a normal chest x-ray and looks well here. Her labs are all reassuring and she has a normal urinalysis and no infection. I think she can be discharged home. I get the sense the patient may be overmedicated. She is quite sleepy and difficult to arouse at times. I advised the sister to look into taking the patient off of trazodone. She expressed understanding. Patient will be discharged home. Diagnosis Primary Impression: Weakness Patient Instructions: General Instructions Additional Instruction: If you develop severe chest pain, shortness of breath, sweating, lightheadedness , dizziness or difficulty breathing return to the emergency department immediately. Followup with your primary care physician in 2-3 days if your symptoms are not resolved. Consider stopping trazodone sedating side effects may be affecting you. Med/Other Pt SpecificInfo: No Change to Meds Disposition: 01 DISCHARGE HOME Condition: Stable Leela Cho MD Feb 05, 2017 00:03
--- NOTE | 2017-02-06 21:06 | EKG ---
Date Performed: 02/04/2017 Time Performed: 21:00:24 PTAGE: 76 years EKG: Sinus rhythm NORMAL ECG NO PREVIOUS TRACING DOCTOR: Micky Ivan Interpretating Date/Time 02/06/2017 20:57:33
--- NOTE | 2017-02-06 21:06 | EKG ---
Date Performed: 02/04/2017 Time Performed: 21:00:24 PTAGE: 76 years EKG: Sinus rhythm NORMAL ECG NO PREVIOUS TRACING DOCTOR: Micky Ivan Interpretating Date/Time 02/06/2017 20:57:33
--- NOTE | 2017-02-06 21:06 | EKG ---
Date Performed: 02/04/2017 Time Performed: 21:00:24 PTAGE: 76 years EKG: Sinus rhythm NORMAL ECG NO PREVIOUS TRACING DOCTOR: Micky Ivan Interpretating Date/Time 02/06/2017 20:57:33
== END 2017-02-05 10:58 | disposition home or self-care (01) ==
LOC: NEPC 20:00
DX: R53.1 Weakness (principal); R06.02 Shortness of breath; D64.9 Anemia, unspecified; M19.90 Unspecified osteoarthritis, unspecified site; G40.909 Epilepsy, unspecified, not intractable, without status epilepticus; E11.9 Type 2 diabetes mellitus without complications; I10 Essential (primary) hypertension; F41.9 Anxiety disorder, unspecified; Z86.73 Personal history of transient ischemic attack (TIA), and cerebral infarction without residual deficits
CPT/HCPCS: 71010; 80053; 81001; 82550; 83605; 83735; 84484; 85025; 85610; 85730; 93005; 99285; P9612

== ENCOUNTER 2017-04-03 08:29 | Inpatient (IN) | payer MEDICARE, OTHER ==
[2017-04-03] VITALS (15 sets, daily range): BP systolic 107–196; BP diastolic 54–88; PULSE 68–94; RESP 14–23; TEMP 97.6–98.6; O2SAT 95–100
[~2017-04-03] VITALS: Ht 167.6 cm; Wt 74.0 kg
[~2017-04-03 08:29] MED LIST changes: +BACL10TA PO; +CLOP75TA PO; +DEXI60CA3; -DIAZ10 PO; -METR-1 PO; -PANT40TA3 PO; -TRAM50TA PO; +TRAZ1TAB14 PO
[2017-04-03] MEDS ORDERED: NALOXONE HCL 0.4 MG/ML AMP ONE (08:55)
[2017-04-03] MEDS ORDERED: NALOXONE HCL 2 MG/2 ML VIAL IV PUSH ONE (09:00)
[2017-04-03] MEDS ORDERED: SODIUM CHLORIDE 0.9% FLUSH 10 ML FLUSH IV FLUSH PRN ×2 (09:00→11:15)
--- NOTE | 2017-04-03 09:01 | PD ---
HPI Chief Complaint: Altered Mental Status Time Seen by Provider: 08:41 Travel History International Travel<30 days: No Contact w/Intl Traveler<30days: No Traveled to known affect area: No History of Present Illness HPI Patient is a 76-year-old female presents emergency department for evaluation of altered mental status. History is extremely limited by the patient's altered mental status, according to EMS the patient normally is more alert and active does have a history of stroke, he was able to speak with the patient's sister who states that she is also power of undercover operator, the patient apparently normally is ambulatory and can carry on a conversation without any difficulty. Apparently about 1:00 in the morning she sat down in her lazy chair and this was the last time she was seen normal she was sitting in her chair, her sister also noted that she started beating her head against a piece of furniture. The patient has had recent urinary tract infection complicated by C. difficile and the patient's sister does not want antibiotics given. She remains a full code. She is a GCS of 7-8 on arrival. PFSH Past Medical History Hx Anticoagulant Therapy: Yes (plavix) Anemia: Yes Arthritis: Yes Anxiety: Yes Depression: Yes Cancer: Yes (CERVICAL CA) Cardiovascular Problems: Yes High Cholesterol: Yes Chest Pain: No Congestive Heart Failure: No Cerebrovascular Accident: Yes Diabetes: Yes Diminished Hearing: No Gastrointestinal Disorders: Yes (esophageal strictures) GERD: Yes Genitourinary: Yes (incontinent) Headaches: No Hypertension: Yes Musculoskeletal: Yes (fracture to right ankle ) Neurologic: Yes (SEIZURE DISORDER, HX CVA) Reproductive: Yes (CERVICAL CANCER) Immunizations Current: No Migraines: No Seizures: Yes PNEUMOCCOCAL Vaccine (Year): 2 ?: Not Menopausal: Yes Past Surgical History Appendectomy: Yes Cardiac Surgery: No Cholecystectomy: Yes Ear Surgery: No Endocrine Surgery: Yes Eye Surgery: No Genitourinary Surgery: Yes Gynecologic Surgery: Yes (HYSTERECTOMY,CERVICAL CA REMOVED.) Hysterectomy: No Neurologic Surgery: Yes (C4,C5,C6 PLATE PLACED) Oral Surgery: Yes Thoracic Surgery: No Other Surgery: Yes (LAPAROSCOPIC SP(WRAP STOMACH AROUND ESOPHAGUS TO HELP WITH GERD)) Social History Alcohol Use: No (DENIES) Tobacco Use: No (DENIES) Substance Use: No Allergies-Medications (Allergen,Severity, Reaction): Coded Allergies: Influenza Virus Vaccines (Unverified Allergy, Intermediate, 02/04/17) "ALLERGIC TO EGGS SO I CAN NOT HAVE THE FLU SHOT" egg (Unverified Allergy, Intermediate, 02/04/17) codeine (Unverified Allergy, Mild, 02/04/17) meperidine (Unverified Allergy, Mild, 02/04/17) morphine (Unverified Allergy, Mild, 02/04/17) acetaminophen (Unverified Adverse Reaction, Mild, HEADACHE, 02/04/17) hydrocodone (Unverified Adverse Reaction, Mild, HEADACHE, 02/04/17) Reported Meds & Prescriptions Reported Meds & Active Scripts Active Reported Dexilant (Dexlansoprazole) 60 Mg bp Sertraline (Sertraline HCl) 50 Mg Tab 50 Mg PO DAILY Tramadol (Tramadol HCl) 50 Mg Tab 50 Mg PO Q4H PRN Vimpat (Lacosamide) 100 Mg Tab 100 Mg PO BID Baclofen 10 Mg Tab 10 Mg PO TID Clopidogrel (Clopidogrel Bisulfate) 75 Mg Tab 75 Mg PO DAILY Proair Hfa 8.5 GM Inh (Albuterol Sulfate) 90 Mcg/Act Aer 2 Puff INH Q6H PRN 108 mcg/actuation Metformin ER (Metformin HCl) 1,000 Mg Tatiana 1,000 Mg PO BID With evening meal Toprol XL (Metoprolol Succinate) 50 Mg Tab 50 Mg PO BID Pravachol (Pravastatin) 40 Mg Tab 40 Mg PO HS Review of Systems ROS Limitations: Unresponsive Physical Exam Narrative GENERAL: Well-developed well-nourished, nearly comatose, displays and occasional cough. SKIN: Focused skin assessment warm/dry. HEAD: Patient has contusion to the right frontal area, no bustos signs no raccoons eyes. EYES: Pupils equal and round. No scleral icterus. No injection or drainage. ENT: No nasal bleeding or discharge. Mucous membranes pink and moist. NECK: Trachea midline. No JVD. CARDIOVASCULAR: Regular rate and rhythm. No murmur appreciated. RESPIRATORY: No accessory muscle use. Clear to auscultation. Breath sounds equal bilaterally. GASTROINTESTINAL: Abdomen soft, non-tender, nondistended. Hepatic and splenic margins not palpable. MUSCULOSKELETAL: No obvious deformities. No clubbing. No cyanosis. No edema. NEUROLOGICAL: GCS of 7-8 (E1-2,V1,M5). PSYCHIATRIC: Appropriate mood and affect; insight and judgment normal. Data Data Last Documented VS Vital Signs Date Time Temp Pulse Resp B/P (MAP) Pulse Ox O2 Delivery O2 Flow Rate FiO2 04/03/17 10:10 100 40 04/03/17 09:15 74 16 Room Air 04/03/17 08:37 98.6 178/79 (112) Orders Orders Complete Blood Count With Diff (04/03/17 08:51) Comprehensive Metabolic Panel (04/03/17 08:51) Creatine Kinase (Cpk) (04/03/17 08:51) Prothrombin Time / Inr (Pt) (04/03/17 08:51) Act Partial Throm Time (Ptt) (04/03/17 08:51) Troponin I (04/03/17 08:51) Thyroid Stimulating Hormone (04/03/17 08:51) Urinalysis - C+S If Indicated (04/03/17 08:51) Blood Culture (04/03/17 08:51) Chest, Single Ap (04/03/17 08:51) Ct Brain W/O Iv Contrast(Rout) (04/03/17 08:51) Blood Glucose (04/03/17 08:51) Ecg Monitoring (04/03/17 08:51) Iv Access Insert/Monitor (04/03/17 08:51) Oximetry (04/03/17 08:51) Naloxone Inj (Narcan Inj) (04/03/17 09:00) Sodium Chloride 0.9% Flush (Ns Flush) (04/03/17 09:00) Drug Screen, Random Urine (04/03/17 08:51) Alcohol (Ethanol) (04/03/17 08:51) Tylenol (Acetaminophen) (04/03/17 08:51) Salicylates (Aspirin) (04/03/17 08:51) Lactic Acid (04/03/17 08:51) Urinary Catheter Management SHYLA.Q8H (04/03/17 08:51) Arterial Blood Gas (Abg) (04/03/17 ) Naloxone Inj (Narcan Inj) (04/03/17 08:55) Ct Cerv Spine W/O Contrast (04/03/17 ) Succinylcholine Inj (Quelicin Inj) (04/03/17 09:15) Etomidate Inj (Amidate Inj) (04/03/17 09:15) Succinylcholine Inj (Quelicin Inj) (04/03/17 09:16) Midazolam 100 Mg/100 Ml Inj (Versed Inj) (04/03/17 09:30) Neurological Rass Scale Q30MX2,Q2HX4,Q4H (04/03/17 09:26) Midazolam 100 Mg/100 Ml Inj (Versed Inj) (04/03/17 09:31) Neurological Rass Scale Q30MX2,Q2HX4,Q4H (04/03/17 09:43) Fentanyl Drip (Fentanyl Drip) (04/03/17 09:45) Resp Ventilation- Volume (04/03/17 09:38) Fentanyl Drip (Fentanyl Drip) (04/03/17 09:45) Resp Ventilation- Volume (04/03/17 10:03) Sodium Chlor 0.9% 1000 Ml Inj (Ns 1000 M (04/03/17 10:15) Urine Culture (04/03/17 09:54) Piperacil-Tazo 2.25 Gm Premix (Zosyn 2.2 (04/03/17 10:30) Admit Order (Ed Use Only) (04/03/17 ) Labs Laboratory Tests Test 04/03/17 08:55 04/03/17 09:54 04/03/17 09:59 White Blood Count 9.8 TH/MM3 Red Blood Count 3.65 MIL/MM3 Hemoglobin 10.8 GM/DL Hematocrit 32.7 % Mean Corpuscular Volume 89.6 FL Mean Corpuscular Hemoglobin 29.4 PG Mean Corpuscular Hemoglobin Concent 32.9 % Red Cell Distribution Width 15.7 % Platelet Count 401 TH/MM3 Mean Platelet Volume 7.4 FL Neutrophils (%) (Auto) 73.8 % Lymphocytes (%) (Auto) 14.3 % Monocytes (%) (Auto) 10.7 % Eosinophils (%) (Auto) 0.7 % Basophils (%) (Auto) 0.5 % Neutrophils # (Auto) 7.2 TH/MM3 Lymphocytes # (Auto) 1.4 TH/MM3 Monocytes # (Auto) 1.1 TH/MM3 Eosinophils # (Auto) 0.1 TH/MM3 Basophils # (Auto) 0.1 TH/MM3 CBC Comment DIFF FINAL Differential Comment Prothrombin Time 11.3 SEC Prothromb Time International Ratio 1.1 RATIO Activated Partial Thromboplast Time 20.8 SEC Blood Urea Nitrogen 29 MG/DL Creatinine 2.76 MG/DL Random Glucose 131 MG/DL Total Protein 9.1 GM/DL Albumin 4.4 GM/DL Calcium Level 9.3 MG/DL Alkaline Phosphatase 136 U/L Aspartate Amino Transf (AST/SGOT) 17 U/L Alanine Aminotransferase (ALT/SGPT) 15 U/L Total Bilirubin 0.1 MG/DL Sodium Level 138 MEQ/L Potassium Level 4.2 MEQ/L Chloride Level 110 MEQ/L Carbon Dioxide Level 16.9 MEQ/L Anion Gap 11 MEQ/L Estimat Glomerular Filtration Rate 17 ML/MIN Lactic Acid Level 2.8 mmol/L Total Creatine Kinase 85 U/L Troponin I LESS THAN 0.02 NG/ML Thyroid Stimulating Hormone 3rd Gen 3.000 uIU/ML Salicylates Level LESS THAN 1.7 MG/DL Acetaminophen Level LESS THAN 2.0 MCG/ML Ethyl Alcohol Level LESS THAN 3 MG/DL Urine Color YELLOW Urine Turbidity HAZY Urine pH 5.5 Urine Specific [place] 1.019 Urine Protein 100 mg/dL Urine Glucose (UA) NEG mg/dL Urine Ketones NEG mg/dL Urine Occult Blood SMALL Urine Nitrite NEG Urine Bilirubin NEG Urine Urobilinogen 2.0 MG/DL Urine Leukocyte Esterase LARGE Urine RBC 40 /hpf Urine WBC /hpf Urine WBC Clumps MANY Urine Squamous Epithelial Cells 3 /hpf Urine Bacteria MANY /hpf Urine Hyaline Casts 149 /lpf Urine Mucus MANY /lpf Microscopic Urinalysis Comment CATH-CULTURE IND Urine Opiates Screen NEG Urine Barbiturates Screen NEG Urine Amphetamines Screen NEG Urine Benzodiazepines Screen POS Urine Cocaine Screen NEG Urine Cannabinoids Screen NEG Blood Gas Puncture Site LT RADIAL Blood Gas Patient Temperature 98.6 Blood Gas HCO3 14 mmol/L Blood Gas Base Excess -11.4 mmol/L Blood Gas Oxygen Saturation 99 % Arterial Blood pH 7.31 Arterial Blood Partial Pressure CO2 28 mmHg Arterial Blood Partial Pressure O2 442 mmHG Arterial Blood Oxygen Content 14.7 Vol % Arterial Blood Carboxyhemoglobin 0.7 % Arterial Blood Methemoglobin 0.4 % Blood Gas Hemoglobin 9.8 G/DL Oxygen Delivery Device VENT Blood Gas Ventilator Setting AC14/500/PEEP5 Blood Gas Inspired Oxygen 100 % [facility] Medical Decision Making Medical Screen Exam Complete: Yes Emergency Medical Condition: Yes Differential Diagnosis Acute CVA, altered mental status, urinary tract infection, seizures, acidosis, electrolyte normality, pneumonia. Narrative Course Patient questionable airway status on arrival, was taken a CAT scan for high suspicion of intracranial hematoma, I come into her to CAT scan and noted that she was having more somnolence in the CAT scan, she was taken back to her room and echo pod where was found that she was foaming at the mouth and was intubated for airway protection. CAT scan of the head and neck were negative, patient does have some metabolic acidosis, fluid resuscitation initiated, does have urinary tract infection started on Zosyn, acute kidney injury is apparent on UA. Moore catheter started for prolonged immobilization. I think given her level of altered mental status and acute stroke needs to be considered and MRIs and MRAs of her brain were ordered after discussion with Dr. Lugo who will admit. Stabilized the moment patient will go to the ICU. Discussed with her sister who apparently is the power of undercover operator and the patient does remain a full code, she did wish for intubation and aggressive measures at this time. Critical Care Narrative Aggregate critical care time was 35 minutes. Time to perform other separately billable procedures was not included in the critical care time. My time did not include minutes spent treating any other patients simultaneously or on activities that did not directly contribute to the patient's treatment. The services I provided to this patient were to treat and/or prevent clinically significant deterioration that could result in: , disability, organ failure I provided critical care services requiring my management, as noted below: Chart data review, documentation time, medication orders and management, vital sign assessments/reviewing monitor data, ordering and reviewing lab tests, ordering and interpreting/reviewing x-rays and diagnostic studies, care of the patient and discussion of the patient with the admitting physicians. Procedures Procedure Narrative INTUBATION: The patient was put in optimal position for the procedure. Rapid sequence intubation was initiated by me using 20 milligrams of etomidate IV and 100 milligrams of succinylcholine IV. The patient was intubated with a 7-5 cuffed endotracheal tube. Tube placement was confirmed by visualization of the tube and balloon passing through the cords, capnometry and subsequent chest x-ray. Breath sounds were equal and well aerated bilaterally postintubation. No breath sounds over stomach. Patient tolerated procedure well. Diagnosis Primary Impression: Altered mental status Qualified Codes: R40.2432 - [place] coma scale score 3-8, at arrival to emergency department Additional Impressions: ANNA (acute kidney injury) Urinary tract infection Acidosis Admitting Information Admitting Physician Requests: Admit Condition: Serious Kartik Dodson MD Apr 03, 2017 09:01
--- NOTE | 2017-04-03 09:10 | RADRPT ---
EXAM DATE/TIME: 04/03/2017 09:02 [facility] COMPARISON: CT BRAIN W/O CONTRAST, January 03, 2017, 5:41. INDICATIONS : Trauma, fall. Altered mental status. RADIATION DOSE: 28.03 CTDIvol (mGy) MEDICAL HISTORY : Non-responsive. SURGICAL HISTORY : Non-responsive. ENCOUNTER: Initial ACUITY: 1 day PAIN SCALE: Non-responsive LOCATION: cranial TECHNIQUE: Multiple contiguous axial images were obtained of the head. Using automated exposure control and adj ustment of the mA and/or kV according to patient size, radiation dose was kept as low as reasonably a chievable to obtain optimal diagnostic quality images. DICOM format image data is available electro nically for review and comparison. FINDINGS: CEREBRUM: The ventricles are normal for age. No evidence of midline shift, mass lesion, hemorrhage or acute in farction. No extra-axial fluid collections are seen. POSTERIOR FOSSA: The cerebellum and brainstem are intact. The 4th ventricle is midline. The cerebellopontine angle i s unremarkable. EXTRACRANIAL: The visualized portion of the orbits is intact. SKULL: The calvaria is intact. No evidence of skull fracture. CONCLUSION: Negative for acute process.. Roque Tripathi MD FACR on April 03, 2017 at 9:08 Board Certified Radiologist. This report was verified electronically.
[2017-04-03 09:13] LABS: AUTOMATED NEUTROPHIL # 7.2 TH/MM3 (1.8-7.7); BASOPHIL # 0.1 TH/MM3 (0-0.2); BASOPHIL % 0.5 % (0.0-2.0); EOSINOPHIL # 0.1 TH/MM3 (0-0.4); EOSINOPHIL % 0.7 % (0.0-4.0); HEMATOCRIT 32.7 % (35.0-46.0); HEMOGLOBIN 10.8 GM/DL (11.6-15.3); LYMPH % 14.3 % (9.0-44.0); LYMPHOCYTE # 1.4 TH/MM3 (1.0-4.8); MEAN CELL VOLUME 89.6 FL (80.0-100.0); MEAN CORPUSCULAR HEMOGLOBIN 29.4 PG (27.0-34.0); MEAN CORPUSCULAR HGB CONC 32.9 % (32.0-36.0); MEAN PLATELET VOLUME 7.4 FL (7.0-11.0); MONO % 10.7 % (0.0-8.0); MONOCYTE # 1.1 TH/MM3 (0-0.9); NEUT % 73.8 % (16.0-70.0); PLATELET COUNT 401 TH/MM3 (150-450); RED BLOOD COUNT 3.65 MIL/MM3 (4.00-5.30); RED CELL DISTRIBUTION WIDTH 15.7 % (11.6-17.2); WHITE BLOOD COUNT 9.8 TH/MM3 (4.0-11.0)
[2017-04-03] MEDS ORDERED: SUCCINYLCHOLINE CHLORIDE 100 MG/5 ML SYRINGE IV PUSH ONE (09:15)
[2017-04-03] MEDS ORDERED: ETOMIDATE 20 MG/10 ML VIAL IV PUSH ONE (09:15)
[2017-04-03] MEDS ORDERED: SUCCINYLCHOLINE CHLORIDE 200 MG/10 ML VIAL ONE (09:16)
[2017-04-03 09:23] LABS: INTERNATIONAL NORMALIZED RATIO 1.1 RATIO; PROTHROMBIN TIME - PATIENT 11.3 SEC (9.8-11.6)
[2017-04-03 09:25] LABS: ALBUMIN 4.4 GM/DL (3.4-5.0); AST (GOT) 17 U/L (15-37); BICARBONATE 16.9 MEQ/L (21.0-32.0); BLOOD UREA NITROGEN 29 MG/DL (7-18); CALCIUM 9.3 MG/DL (8.5-10.1); CHLORIDE 110 MEQ/L (98-107); CREATININE 2.76 MG/DL (0.50-1.00); GLOMERULAR FILTRATION RATE 17 ML/MIN (>89); GLUCOSE,RANDOM 131 MG/DL (74-106); SODIUM (NA) 138 MEQ/L (136-145)
[2017-04-03 09:26] LABS: ALT (GPT) 15 U/L (10-53)
[2017-04-03] MEDS ORDERED: MIDAZOLAM 100 MG/100 ML INJ 100 ML IV PRN (09:30)
[2017-04-03] MEDS ORDERED: MIDAZOLAM 100 MG/100 ML INJ 100 ML ONE (09:31)
[2017-04-03 09:33] LABS: ACETAMINOPHEN LESS THAN 2.0 MCG/ML (10.0-30.0)
[2017-04-03 09:39] LABS: ALKALINE PHOSPHATASE 136 U/L (45-117); TOTAL BILIRUBIN ADULT 0.1 MG/DL (0.2-1.0); TOTAL PROTEIN 9.1 GM/DL (6.4-8.2)
[2017-04-03 09:40] LABS: TROPONIN I LESS THAN 0.02 NG/ML (0.02-0.05)
--- NOTE | 2017-04-03 09:41 | RADRPT ---
EXAM DATE/TIME: 04/03/2017 09:07 [facility] COMPARISON: CT CERVICAL SPINE W/O CONTRAST, July 28, 2015, 20:50. INDICATIONS : Trauma, fall. RADIATION DOSE: 21.01 CTDIvol (mGy) MEDICAL HISTORY : Non-responsive. SURGICAL HISTORY : Fusion, cervical. ENCOUNTER: Initial ACUITY: 1 day PAIN SCALE: Non-responsive LOCATION: neck TECHNIQUE: Volumetric scanning of the cervical spine was performed. Multiplanar reconstructions in the sagittal, coronal and oblique axial planes were performed. Using automated exposure control and adjustment o f the mA and/or kV according to patient size, radiation dose was kept as low as reasonably achievable to obtain optimal diagnostic quality images. DICOM format image data is available electronically f or review and comparison. FINDINGS: VERTEBRAE: Status post anterior cervical fusion C2-C3. Fusion at C6-C7 with plate. Fusion from C4-C6 without p late. Alignment is anatomic ALIGNMENT: No evidence of subluxation. C2-C3: Deformity of the C2 lamina is evident. C3-C4: Fused C4-C5: Fused without plate. Minimal bilateral neural foramina encroachment. C5-C6: Fused without plate. C6-C7: Fused without spinal stenosis or neural foramen encroachment. C7-T1: The bony spinal canal is normal in size. No evidence of disc bulge or herniation. The neural forami na are bilaterally patent. CONCLUSION: Fusion as above, negative for fracture. Roque Tripathi MD FACR on April 03, 2017 at 9:35 Board Certified Radiologist. This report was verified electronically.
[2017-04-03] MEDS ORDERED: fentaNYL DRIP 250 ML ONE (09:45)
[2017-04-03 10:12] LABS: BACTERIA, URINE MANY /hpf; HYALINE CAST, URINE 149 /lpf (RARE); MUCUS URINE MANY /lpf (OCC); SQUAMOUS EPITHELIAL CELL URINE 3 /hpf (0-5); WHITE BLOOD CELL CLUMPS MANY
[2017-04-03 10:13] LABS: BILIRUBIN, URINE NEG (NEG); BLOOD, URINE SMALL (NEG); GLUCOSE,URINE NEG (NEG); KETONE, URINE NEG (NEG); NITRITE,URINE NEG (NEG); PH, URINE 5.5 (5.0-8.5); URINE COLOR YELLOW (YELLW/STRAW); URINE LEUKOCYTE ESTERASE LARGE (NEG)
--- NOTE | 2017-04-03 10:14 | RADRPT ---
EXAM DATE/TIME: 04/03/2017 09:38 [facility] COMPARISON: CHEST SINGLE AP, February 04, 2017, 20:47. INDICATIONS : Post intubation. MEDICAL HISTORY : Diabetes mellitus type I. Hypertension Cerebrovascular disease. SURGICAL HISTORY : Appendectomy. Cholecystectomy. ENCOUNTER: Initial ACUITY: 1 day PAIN SCORE: 0/10 LOCATION: Bilateral chest FINDINGS: ET in good position. Nasogastric tube should be advanced 6 inches Lungs are clear. CONCLUSION: ET good position. Nasogastric tube needs advanced. Roque Tripathi MD FACR on April 03, 2017 at 10:12 Board Certified Radiologist. This report was verified electronically.
[2017-04-03] MEDS ORDERED: SODIUM CHLOR 0.9% 1000 ML INJ 1,000 ML IV ONE (10:15)
[2017-04-03] MEDS ORDERED: SERT-132 PO (10:20)
[2017-04-03] MEDS ORDERED: TRAM50TA PO (10:20)
[2017-04-03] MEDS ORDERED: DEXI60CA3 (10:20)
[2017-04-03] MEDS ORDERED: LACO100 PO (10:20)
[2017-04-03] MEDS: fentaNYL DRIP 250 ML IV PRN (10:22)
[2017-04-03] MEDS ORDERED: PIPERACIL-TAZO 2.25 GM PREMIX 50 ML IV ONE (10:30)
[2017-04-03] MEDS ORDERED: SODIUM CHLOR 0.9% 1000 ML INJ 1,000 ML IV SCH (11:14)
[2017-04-03] MEDS ORDERED: LACTULOSE SYRUP 20 GM/30 ML CUP PO PRN (11:15)
[2017-04-03] MEDS ORDERED: niCARdipine INJ 25 MG in SODIUM CHLOR 0.9% 250 ML INJ 240 ML IV PRN (11:15)
[2017-04-03] MEDS ORDERED: BISACODYL 10 MG SUPP RECTAL PRN (11:15)
[2017-04-03] MEDS ORDERED: MAGNESIUM HYDROXIDE SUSP 30 ML CUP PO PRN (11:15)
[2017-04-03] MEDS ORDERED: CHLORHEXIDINE GLUCONATE 2 % 1 PACK (2 CLOTHS) TOP PRN (11:15)
[2017-04-03] MEDS ORDERED: SENNOSIDES 8.6 MG TAB PO PRN (11:15)
[2017-04-03] MEDS ORDERED: RESP: ALBUTEROL 2.5 MG/IPRATROPIUM 0.5 MG NEB (PRN) INH (11:15)
[2017-04-03] MEDS ORDERED: ACETAMINOPHEN 325 MG TAB PO PRN (11:15)
[2017-04-03] MEDS ORDERED: MISCELLANEOUS NURSING INFORMATION XX SCH (11:15)
[2017-04-03] MEDS ORDERED: GLUCAGON 1 MG/ML VIAL OTHER PRN (11:30)
[2017-04-03] MEDS ORDERED: DEXTROSE 50% IN WATER 50 ML VIAL(D50) IV PUSH PRN (11:30)
[2017-04-03] MEDS: INSULIN ASPART SUPPLEMENTAL SCALE SQ SCH ×3 (12:00→21:00)
--- NOTE | 2017-04-03 13:33 | RADRPT ---
EXAM DATE/TIME: 04/03/2017 13:11 [facility] COMPARISON: No previous studies available for comparison. INDICATIONS : Altered mental status. MEDICAL HISTORY : Diabetes mellitus type 2. Hypertension. CVA. SURGICAL HISTORY : Discectomy, lumbar. Fusion, cervical. Cholecystectomy. ENCOUNTER: Initial ACUITY: 1 day PAIN SCORE: 0/10 LOCATION: cranial Please note a normal MRA of the brain does not entirely exclude the possibility of a small aneurysm, nor the possibility of distal intracranial vessel disease. TECHNIQUE: 3D time of flight MRA was performed. Source images, multiplanar STS MIP, and 3D volume MIP reconstru ctions were reviewed. FINDINGS: There is excellent visualization of the major intracranial arteries out to the second-order branch ve ssels. There is no evidence for aneurysm, vessel truncation or stenosis, and no evidence for vascula r malformation. CONCLUSION: Negative for major branch vessel occlusion. Roque Tripathi MD FACR on April 03, 2017 at 13:31 Board Certified Radiologist. This report was verified electronically.
--- NOTE | 2017-04-03 14:00 | RADRPT ---
EXAM DATE/TIME: 04/03/2017 13:11 [facility] COMPARISON: CT CERVICAL SPINE W/O CONTRAST, April 03, 2017, 9:07. INDICATIONS : Altered mental status. MEDICAL HISTORY : Diabetes mellitus type 2. Hypertension. CVA. SURGICAL HISTORY : Fusion, cervical. Discectomy, lumbar. Cholecystectomy. ENCOUNTER: Initial ACUITY: 1 day PAIN SCORE: 0/10 LOCATION: cranial TECHNIQUE: Multiplanar, multisequence MRI of the brain was performed without contrast. FINDINGS: Moderate periventricular white matter changes are evident. There is no restricted diffusion. There is moderate atrophy with dilatation of ventricular sulcal spaces. There are no extra-axial fluid col lections appreciated. Posterior fossa is unremarkable. Calcification is seen just behind the clivus . Artery patent. CONCLUSION: Marked periventricular white matter changes Central and cortical atrophy Negative for ischemia. Roque Tripathi MD FACR on April 03, 2017 at 13:57 Board Certified Radiologist. This report was verified electronically.
--- NOTE | 2017-04-03 14:01 | RADRPT ---
EXAM DATE/TIME: 04/03/2017 13:11 [facility] COMPARISON: No previous studies available for comparison. INDICATIONS : Altered mental status. MEDICAL HISTORY : Diabetes mellitus type 2. Hypertension. CVA SURGICAL HISTORY : Discectomy, lumbar. Fusion, cervical. Cholecystectomy. ENCOUNTER: Initial ACUITY: 1 day PAIN SCORE: 0/10 LOCATION: neck Percent stenosis is calculated using the diameter of the stenotic region over the diameter of the nor mal distal internal carotid artery. TECHNIQUE: 3D time of flight MRA of the extracranial circulation was performed using a neurovascular coil. Post processing was performed including rotating subvolume maximum intensity projections of each carotid artery, rotating full-volume maximum intensity projections of both carotid arteries, sagittal and cor onal sliding thin-slab reformations of each carotid artery, and left oblique sliding thin slab reform ation through the aortic arch to include the origin of the arch branch vessels. FINDINGS: AORTIC ARCH: There is a three vessel origin of the great vessels from the aorta. No evidence of ostial narrowing. RIGHT CAROTID: The common carotid artery is intact. The carotid bulb has a normal configuration without ulceration or narrowing. The internal carotid artery lumen is smooth without stenosis. The external carotid ar gia is intact. LEFT CAROTID: The common carotid artery is intact. The carotid bulb has a normal configuration without ulceration or narrowing. The internal carotid artery lumen is smooth without stenosis. The external carotid ar gia is intact. VERTEBRALS: The vertebral arteries have a symmetric diameter. No stenotic lesions are seen. CONCLUSION: Negative for hemodynamically significant carotid stenosis Roque Tripathi MD FACR on April 03, 2017 at 13:59 Board Certified Radiologist. This report was verified electronically.
--- NOTE | 2017-04-03 14:21 | HHI.HP ---
HPI Service Critical Care Medicine Primary Care Physician No Primary Care Physician Admission Diagnosis Altered mental status, GCS 7. Diagnosis: Travel History International Travel<30 Days: No Contact w/Intl Traveler <30 Da: No Traveled to Known Affected Are: No History of Present Illness HPI This is a 76-year-old female that presented to the ED for evaluation of altered mental status. Per report, according to EMS the patient normally is more alert and has a history of stroke, he was able to speak with the patient's sister who states that she is also power of state attorney, the patient apparently normally is ambulatory and can carry on a conversation without any difficulty. Per records reviewed, the patient was last seen normal and at her baseline at 1 am. The patient then sat down in her lazy chair, her sister also noted that she started beating her head against a piece of furniture. The patient was noted to have a right frontal contusion upon presentation to the ED .She had a GCS of 7-8 on arrival. The patient's medical history is significant for a recent admission 12/2016 for altered mental status, medication induced. Her past medical history is also significant for a recent history of UTI and C. difficile in addition to her history of having a CVA and reportedly residual effects in the right upper and lower extremity. Laboratory and imaging studies revealed that most likely the patient has a UTI, CT of the brain revealed no abnormality and the patient was noted to have an elevated lactate level. The patient was emergently intubated in the ED, and the patient was noted to be significantly hypertensive and a nicardipine infusion was instituted. Upon entering the ED the patient's blood pressure was noted to be 219/92, Cardizem infusion had been ordered. The patient was noted to have spontaneous movement of the right upper and lower extremity with a gag reflex. Critical care medicine was consulted. History PFSH Past Medical History Hx Anticoagulant Therapy: Yes (plavix) Anemia: Yes Arthritis: Yes Anxiety: Yes Depression: Yes Cancer: Yes (CERVICAL CA) Cardiovascular Problems: Yes High Cholesterol: Yes Chest Pain: No Congestive Heart Failure: No Cerebrovascular Accident: Yes Diabetes: Yes Diminished Hearing: No Gastrointestinal Disorders: Yes (esophageal strictures) GERD: Yes Genitourinary: Yes (incontinent) Headaches: No Hypertension: Yes Musculoskeletal: Yes (fracture to right ankle ) Neurologic: Yes (SEIZURE DISORDER, HX CVA) Reproductive: Yes (CERVICAL CANCER) Immunizations Current: No Migraines: No Seizures: Yes PNEUMOCCOCAL Vaccine (Year): 2 ?: Not Menopausal: Yes Past Surgical History Appendectomy: Yes Cardiac Surgery: No Cholecystectomy: Yes Ear Surgery: No Endocrine Surgery: Yes Eye Surgery: No Genitourinary Surgery: Yes Gynecologic Surgery: Yes (HYSTERECTOMY,CERVICAL CA REMOVED.) Hysterectomy: No Neurologic Surgery: Yes (C4,C5,C6 PLATE PLACED) Oral Surgery: Yes Thoracic Surgery: No Other Surgery: Yes (LAPAROSCOPIC SP(WRAP STOMACH AROUND ESOPHAGUS TO HELP WITH GERD)) Social History Alcohol Use: No (DENIES) Tobacco Use: No (DENIES) Substance Use: No Allergies-Medications Allergies-Medications (Allergen,Severity, Reaction): Coded Allergies: Influenza Virus Vaccines (Unverified Allergy, Intermediate, 02/04/17) "ALLERGIC TO EGGS SO I CAN NOT HAVE THE FLU SHOT" egg (Unverified Allergy, Intermediate, 02/04/17) codeine (Unverified Allergy, Mild, 02/04/17) meperidine (Unverified Allergy, Mild, 02/04/17) morphine (Unverified Allergy, Mild, 02/04/17) acetaminophen (Unverified Adverse Reaction, Mild, HEADACHE, 02/04/17) hydrocodone (Unverified Adverse Reaction, Mild, HEADACHE, 02/04/17) Reported Meds & Prescriptions Reported Meds & Active Scripts Active Eliquis (Apixaban) 5 Mg Tab 5 Mg PO BID Reported Baclofen 10 Mg Tab 10 Mg PO TID Clopidogrel (Clopidogrel Bisulfate) 75 Mg Tab 75 Mg PO DAILY Dexilant (Dexlansoprazole) 60 Mg bp Trazodone (Trazodone HCl) 150 Mg Tablet 150 Mg PO HS Vimpat (Lacosamide) 100 Mg Tab 100 Mg PO BID Proair Hfa 8.5 GM Inh (Albuterol Sulfate) 90 Mcg/Act Aer 2 Puff INH Q6H PRN 108 mcg/actuation Metformin ER (Metformin HCl) 1,000 Mg Tatiana 1,000 Mg PO BID With evening meal Toprol XL (Metoprolol Succinate) 50 Mg Tab 50 Mg PO BID Pravachol (Pravastatin) 40 Mg Tab 40 Mg PO HS Sertraline (Sertraline HCl) 25 Mg Tab 50 Mg PO DAILY ROS Review of Systems ROS Limitations: Unresponsive Physical Exam Vital Signs Vital Signs Date Time Temp Pulse Resp B/P (MAP) Pulse Ox O2 Delivery O2 Flow Rate FiO2 04/03/17 11:48 04/03/17 11:24 68 14 196/88 (124) 100 Ventilator 04/03/17 10:49 75 18 191/77 (115) 100 Room Air 04/03/17 10:10 100 40 04/03/17 09:45 100 100 04/03/17 09:45 100 04/03/17 09:15 74 16 98 Room Air 04/03/17 09:15 99 Room Air 04/03/17 08:37 98.6 77 16 178/79 (112) Laboratory Laboratory Tests Test 04/03/17 08:55 04/03/17 09:54 04/03/17 09:59 White Blood Count 9.8 Red Blood Count 3.65 Hemoglobin 10.8 Hematocrit 32.7 Mean Corpuscular Volume 89.6 Mean Corpuscular Hemoglobin 29.4 Mean Corpuscular Hemoglobin Concent 32.9 Red Cell Distribution Width 15.7 Platelet Count 401 Mean Platelet Volume 7.4 Neutrophils (%) (Auto) 73.8 Lymphocytes (%) (Auto) 14.3 Monocytes (%) (Auto) 10.7 Eosinophils (%) (Auto) 0.7 Basophils (%) (Auto) 0.5 Neutrophils # (Auto) 7.2 Lymphocytes # (Auto) 1.4 Monocytes # (Auto) 1.1 Eosinophils # (Auto) 0.1 Basophils # (Auto) 0.1 CBC Comment DIFF FINAL Differential Comment Prothrombin Time 11.3 Prothromb Time International Ratio 1.1 Activated Partial Thromboplast Time 20.8 Blood Urea Nitrogen 29 Creatinine 2.76 Random Glucose 131 Total Protein 9.1 Albumin 4.4 Calcium Level 9.3 Alkaline Phosphatase 136 Aspartate Amino Transf (AST/SGOT) 17 Alanine Aminotransferase (ALT/SGPT) 15 Total Bilirubin 0.1 Sodium Level 138 Potassium Level 4.2 Chloride Level 110 Carbon Dioxide Level 16.9 Anion Gap 11 Estimat Glomerular Filtration Rate 17 Lactic Acid Level 2.8 Total Creatine Kinase 85 Troponin I LESS THAN 0.02 Thyroid Stimulating Hormone 3rd Gen 3.000 Salicylates Level LESS THAN 1.7 Acetaminophen Level LESS THAN 2.0 Ethyl Alcohol Level LESS THAN 3 Urine Color YELLOW Urine Turbidity HAZY Urine pH 5.5 Urine Specific Moodus 1.019 Urine Protein 100 Urine Glucose (UA) NEG Urine Ketones NEG Urine Occult Blood SMALL Urine Nitrite NEG Urine Bilirubin NEG Urine Urobilinogen 2.0 Urine Leukocyte Esterase LARGE Urine RBC 40 Urine WBC Urine WBC Clumps MANY Urine Squamous Epithelial Cells 3 Urine Bacteria MANY Urine Hyaline Casts 149 Urine Mucus MANY Microscopic Urinalysis Comment CATH-CULTURE IND Urine Opiates Screen NEG Urine Barbiturates Screen NEG Urine Amphetamines Screen NEG Urine Benzodiazepines Screen POS Urine Cocaine Screen NEG Urine Cannabinoids Screen NEG Blood Gas Puncture Site LT RADIAL Blood Gas Patient Temperature 98.6 Blood Gas HCO3 14 Blood Gas Base Excess -11.4 Blood Gas Oxygen Saturation 99 Arterial Blood pH 7.31 Arterial Blood Partial Pressure CO2 28 Arterial Blood Partial Pressure O2 442 Arterial Blood Oxygen Content 14.7 Arterial Blood Carboxyhemoglobin 0.7 Arterial Blood Methemoglobin 0.4 Blood Gas Hemoglobin 9.8 Oxygen Delivery Device VENT Blood Gas Ventilator Setting AC14/500/PEEP5 Blood Gas Inspired Oxygen 100 Date/Time Source Procedure Growth Status 04/03/17 08:55 Blood Peripheral Aerobic Blood Culture Pending Received 04/03/17 08:55 Blood Peripheral Anaerobic Blood Culture Pending Received 04/03/17 09:54 Urine Catheterized Urine Urine Culture Pending Received Result Diagram: 04/03/17 0855 04/03/17 0855 Imaging Last Impressions Head Magnetic Resonance Angiography 04/03/17 1119 Signed Impressions: Service Date/Time: Monday, April 03, 2017 13:11 - CONCLUSION: Negative for major branch vessel occlusion. Roque Tripathi MD FACR Head CT 04/03/17 0851 Signed Impressions: Service Date/Time: Monday, April 03, 2017 09:02 - CONCLUSION: Negative for acute process.. Roque Tripathi MD FACR Chest X-Ray 04/03/17 0851 Signed Impressions: Service Date/Time: Monday, April 03, 2017 09:38 - CONCLUSION: ET good position. Nasogastric tube needs advanced. Roque Tripathi MD FACR Cervical Spine CT 04/03/17 0000 Signed Impressions: Service Date/Time: Monday, April 03, 2017 09:07 - CONCLUSION: Fusion as above, negative for fracture. Roque Tripathi MD FACR Septic Shock Reassessment Septic shock perfusion: reassessment completed Caprini VTE Risk Assessment Caprini VTE Risk Assessment: Mod/High Risk (score >= 2) Caprini Risk Assessment Model Point Value = 1 Point Value = 2 Point Value = 3 Point Value = 5 Age 41-60 Minor surgery BMI > 25 kg/m2 Swollen legs Varicose veins or History of unexplained or recurrent spontaneous Oral contraceptives or hormone replacement Sepsis (< 1 month) Serious lung disease, including pneumonia (< 1 month) Abnormal pulmonary function Acute myocardial infarction Congestive heart failure (< 1 month) History of inflammatory bowel disease Medical patient at bed rest Age 61-74 Arthroscopic surgery Major open surgery (> 45 min) Laparoscopic surgery (> 45 min) Malignancy Confined to bed (> 72 hours) Immobilizing plaster cast Central venous access Age >= 75 History of VTE Family history of VTE Factor V Leiden Prothrombin [id number] Lupus anticoagulant Anticardiolipin antibodies Elevated serum homocysteine Heparin-induced thrombocytopenia Other congenital or acquired thrombophilia Stroke (< 1 month) Elective arthroplasty Hip, pelvis, or leg fracture Acute spinal cord injury (< 1 month) Prophylaxis Regimen Total Risk Factor Score Risk Level Prophylaxis Regimen 0-1 Low Early ambulation 2 Moderate Order ONE of the following: *Sequential Compression Device (SCD) *Heparin 5000 units SQ BID 3-4 Higher Order ONE of the following medications: *Heparin 5000 units SQ TID *Enoxaparin/Lovenox 40 mg SQ daily (WT < 150 kg, CrCl > 30 mL/min) *Enoxaparin/Lovenox 30 mg SQ daily (WT < 150 kg, CrCl > 10-29 mL/min) *Enoxaparin/Lovenox 30 mg SQ BID (WT < 150 kg, CrCl > 30 mL/min) AND/OR *Sequential Compression Device (SCD) 5 or more Highest Order ONE of the following medications: *Heparin 5000 units SQ TID (Preferred with Epidurals) *Enoxaparin/Lovenox 40 mg SQ daily (WT < 150 kg, CrCl > 30 mL/min) *Enoxaparin/Lovenox 30 mg SQ daily (WT < 150 kg, CrCl > 10-29 mL/min) *Enoxaparin/Lovenox 30 mg SQ BID (WT < 150 kg, CrCl > 30 mL/min) AND *Sequential Compression Device (SCD) Assessment and Plan Assessment and Plan This is a 76-year-old female with a history of a previous stroke presenting with altered mental status for unknown origin possibly bleed,CVA, toxic encephalopathy versus metabolic encephalopathy. Intubated for airway protection. Plan admit to ICU. Plan by systems: Neurologic: Toxicity versus metabolic encephalopathy History of CVA H/O seizures/ Neurochecks per ICU protocol DC Versed infusion Patient reportedly is allergic to propofol, fentanyl infusion for ventilator synchrony Daily sedation vacation TSH normal-3.0 Obtain random cortisol level, ammonia level Obtain MRI brain 04/03 MRA brain-negative for major branch occlusion 04/03 CT brain-no acute intracranial process Obtain EEG Patient normally takes Vimpat 100 mg BID, will continue Will hold patient's home meds baclofen 10 mg 3 times a day, and sertraline 50 mg twice a day, confirmed concern for serotonin syndrome and rhabdomyolysis. Patient has history of altered mental status secondary to being medication induced Respiratory: Acute hypoxemic respiratory failure Maintain O2 sat greater than 92% DuoNeb nebs every 6 hours scheduled, every 2 hours when necessary Daily CPAP trials Obtain sputum culture Chest x-rays ABGs when clinically indicated Cardiovascular: Hypertensive emergency History of hypertension Nicardipine infusion maintain SBP < 180, wean as tolerated Labetalol, hydralazine IV , PRN to maintain SBP <160 Initial troponin <0.02, continue to trend Begin metoprolol XL 50 mg BID, (home med) Renal: Probable UTI (recent UTI ) Maintain Moore catheter -- Strict I/Os FEN/GI: Chronic kidney disease stage III ANNA Acute on chronic kidney disease Monitor BMP Replete electrolytes as needed Previous Creatinine 12/2016- 1.15, upon admission 2.76 Maintain OGT, advance 6 inches Dahra pravastatin 40 mg daily at bedtime Zofran for nausea Famotidine for GI prophylaxis Bowel regimen Obtain creatinine kinase levels Heme/ID: Sepsis Lactic acidemia Monitor CBC Follow-up urine blood and sputum cultures Follow-up influenza and pneumococcal urine antigen Obtain C. difficile antigen, patient has recent history of C. difficile colitis Patient normally on Plavix hold for now (await MRI results) Endocrine: Diabetes mellitus Glucose monitoring per ICU protocol, low dose regimen Hold metformin-patient has lactic acidosis, which can because by metformin -- SSI Prophylaxis: GI Prophylaxis Famotidine twice a day DVT Prophylaxis -- SCDs Lines: Peripheral IVs providing adequate access. Central line if indicated Dispo: my billing statement This patient remains critically ill with one or more organ systems which are or may become a threat to life. I have spent in excess of 42 minutes discontinuously in the care and management of this patient. This time is exclusive of procedures, and includes, but is not limited to, evaluation of the patient, review of the medical record, discussions with family, consultants, nursing staff, or respiratory therapy, and documentation in the medical record. Code Status Full Discussed Condition With Dr. Dodson, MATERIAL PROCESSOR at bedside (Kia Salinas MD Apr 03, 2017 14:20
[2017-04-03] MEDS: CEFEPIME INJ 2,000 MG in SODIUM CHLORIDE 0.9% INJ 100 ML IV SCH ×2 (15:01→23:55)
[2017-04-03] MEDS: RESP: ALBUTEROL 2.5 MG/IPRATROPIUM 0.5 MG NEB (SCH) INH ×2 (15:37→19:51)
[2017-04-03] MEDS: ARTIFICIAL TEARS OPTH SOLN 15 ML BTL EACH EYE SCH ×2 (17:35→17:42)
[2017-04-03] MEDS: LACOSAMIDE 100 MG TAB PO SCH ×2 (17:35→21:03)
--- NOTE | 2017-04-03 18:22 | EKG ---
Date Performed: 04/03/2017 Time Performed: 08:39:49 PTAGE: 76 years EKG: Sinus rhythm NORMAL ECG NO PREVIOUS TRACING DOCTOR: Monty Bravo Interpretating Date/Time 04/03/2017 18:21:56
[2017-04-03 20:37] LABS: LACTIC ACID SEPSIS PROTOCOL 2.2 mmol/L (0.4-2.0)
[2017-04-03 20:47] LABS: TROPONIN I 0.03 NG/ML (0.02-0.05)
[2017-04-03] MEDS: METOPROLOL TARTRATE 25 MG TAB PO SCH ×2 (21:00→23:55)
[2017-04-03] MEDS ORDERED: METOPROLOL SUCCINATE 50 MG EXTENDED RELEASE TAB PO SCH (21:00)
[2017-04-03] MEDS ORDERED: FAMOTIDINE 20 MG TAB PO PRN (21:00)
[2017-04-03] MEDS: PRAVASTATIN SOD 40 MG TAB PO SCH (21:03)
[2017-04-03] MEDS: CHLORHEXIDINE 0.12% (ORAL KIT) 15 ML CUP MT SCH (21:03)
[2017-04-03] MEDS: DOCUSATE SODIUM 50 MG/SENNA 8.6 MG TAB PO SCH (21:03)
[2017-04-03] MEDS: FAMOTIDINE 20 MG/2 ML VIAL IV PUSH SCH (21:04)
[2017-04-03] MEDS: SODIUM CHLORIDE 0.9% FLUSH 10 ML FLUSH IV FLUSH SCH (21:06)
[2017-04-03] MEDS: niCARdipine INJ 25 MG in SODIUM CHLOR 0.9% 250 ML INJ 240 ML IV PRN (22:30)
[2017-04-04] VITALS (33 sets, daily range): BP systolic 100–147; BP diastolic 51–67; PULSE 73–128; RESP 15–35; TEMP 97.6–100; O2SAT 100
[2017-04-04] MEDS: fentaNYL DRIP 250 ML IV PRN (02:05)
[2017-04-04] MEDS: RESP: ALBUTEROL 2.5 MG/IPRATROPIUM 0.5 MG NEB (SCH) INH ×4 (03:48→20:20)
[2017-04-04] MEDS: CHLORHEXIDINE GLUCONATE 2 % 1 PACK (2 CLOTHS) TOP SCH (04:00)
--- NOTE | 2017-04-04 04:51 | RADRPT ---
EXAM DATE/TIME: 04/04/2017 03:01 [facility] COMPARISON: CHEST SINGLE AP, April 03, 2017, 9:38. INDICATIONS : Shortness of breath, possible pulmonary disease. MEDICAL HISTORY : Diabetes mellitus type II. Hypertension CVA SURGICAL HISTORY : Fusion, cervical. Cholecystectomy. ENCOUNTER: Subsequent ACUITY: 2 days PAIN SCORE: Non-responsive. LOCATION: Bilateral chest FINDINGS: The lungs are clear without infiltrate, nodule, or mass. There is no appreciable pleural effusion fo r technique. Heart and mediastinum are unremarkable. ET tube, and NG tube have not changed. CONCLUSION: No acute cardiopulmonary disease. Betty Dennis MD on April 04, 2017 at 4:49 Board Certified Radiologist. This report was verified electronically.
[2017-04-04] MEDS: niCARdipine INJ 25 MG in SODIUM CHLOR 0.9% 250 ML INJ 240 ML IV PRN (06:00)
[2017-04-04] MEDS ORDERED: SODIUM BICARBONATE 8.4% INJ 150 MEQ in DEXTROSE 5% IN WATE 1000ML INJ 1,000 ML IV SCH ×2 (06:00)
[2017-04-04] MEDS: METOPROLOL TARTRATE 25 MG TAB PO SCH ×4 (06:20→22:55)
[2017-04-04 06:46] LABS: AUTOMATED NEUTROPHIL # 7.1 TH/MM3 (1.8-7.7); BASOPHIL % 0.4 % (0.0-2.0); EOSINOPHIL % 0.5 % (0.0-4.0); HEMATOCRIT 30.2 % (35.0-46.0); HEMOGLOBIN 9.8 GM/DL (11.6-15.3); LYMPH % 10.1 % (9.0-44.0); LYMPHOCYTE # 0.9 TH/MM3 (1.0-4.8); MEAN CELL VOLUME 90.3 FL (80.0-100.0); MEAN CORPUSCULAR HEMOGLOBIN 29.4 PG (27.0-34.0); MEAN CORPUSCULAR HGB CONC 32.5 % (32.0-36.0); MEAN PLATELET VOLUME 7.4 FL (7.0-11.0); MONO % 14.1 % (0.0-8.0); MONOCYTE # 1.3 TH/MM3 (0-0.9); NEUT % 74.9 % (16.0-70.0); PLATELET COUNT 306 TH/MM3 (150-450); RED BLOOD COUNT 3.35 MIL/MM3 (4.00-5.30); RED CELL DISTRIBUTION WIDTH 15.7 % (11.6-17.2); WHITE BLOOD COUNT 9.4 TH/MM3 (4.0-11.0)
[2017-04-04 07:04] LABS: ALBUMIN 3.3 GM/DL (3.4-5.0); AST (GOT) 31 U/L (15-37); BICARBONATE 14.7 MEQ/L (21.0-32.0); BLOOD UREA NITROGEN 24 MG/DL (7-18); CALCIUM 8.4 MG/DL (8.5-10.1); CHLORIDE 117 MEQ/L (98-107); CREATININE 1.64 MG/DL (0.50-1.00); GLOMERULAR FILTRATION RATE 31 ML/MIN (>89); GLUCOSE,RANDOM 152 MG/DL (74-106); MAGNESIUM 1.5 MG/DL (1.5-2.5); SODIUM (NA) 143 MEQ/L (136-145)
[2017-04-04 07:11] LABS: ALKALINE PHOSPHATASE 109 U/L (45-117); ALT (GPT) 15 U/L (10-53); DIRECT BILIRUBIN ADULT 0.1 MG/DL (0.0-0.2); PHOSPHORUS 3.5 MG/DL (2.5-4.9); TOTAL BILIRUBIN ADULT 0.2 MG/DL (0.2-1.0); TOTAL PROTEIN 7.2 GM/DL (6.4-8.2); TROPONIN I 0.03 NG/ML (0.02-0.05)
[2017-04-04] MEDS: INSULIN ASPART SUPPLEMENTAL SCALE SQ SCH ×4 (08:00→21:00)
[2017-04-04] MEDS: FAMOTIDINE 20 MG/2 ML VIAL IV PUSH SCH ×2 (08:12→22:55)
[2017-04-04] MEDS: ARTIFICIAL TEARS OPTH SOLN 15 ML BTL EACH EYE SCH ×3 (08:12→17:33)
[2017-04-04] MEDS: SODIUM CHLORIDE 0.9% FLUSH 10 ML FLUSH IV FLUSH SCH ×2 (08:12→22:57)
[2017-04-04] MEDS: LACOSAMIDE 100 MG TAB PO SCH ×2 (08:12→22:55)
[2017-04-04] MEDS: DOCUSATE SODIUM 50 MG/SENNA 8.6 MG TAB PO SCH ×2 (08:12→22:55)
[2017-04-04] MEDS: CHLORHEXIDINE 0.12% (ORAL KIT) 15 ML CUP MT SCH ×2 (08:14→22:58)
[2017-04-04] MEDS ORDERED: FAMOTIDINE 20 MG TAB PO PRN (09:30)
[2017-04-04] MEDS: CEFEPIME INJ 2,000 MG in SODIUM CHLORIDE 0.9% INJ 100 ML IV SCH (12:19)
[2017-04-04] MEDS ORDERED: SODIUM BICARBONATE 8.4% INJ 50 MEQ/50 ML SYR IV PUSH ONE (12:45)
[2017-04-04 13:07] LABS: AMYLASE 342 U/L (25-115); LIPASE 90 U/L (73-393)
--- NOTE | 2017-04-04 13:07 | HHI.CCPN ---
Subjective Remarks/Hospital Course This is a 76-year-old female that presented to the ED for evaluation of altered mental status. Per report, according to EMS the patient normally is more alert and has a history of stroke, he was able to speak with the patient's sister who states that she is also power of funeral prearrangement counselor, the patient apparently normally is ambulatory and can carry on a conversation without any difficulty. Per records reviewed, the patient was last seen normal and at her baseline at 1 am. The patient then sat down in her lazy chair, her sister also noted that she started beating her head against a piece of furniture. The patient was noted to have a right frontal contusion upon presentation to the ED .She had a GCS of 7-8 on arrival. The patient's medical history is significant for a recent admission 12/2016 for altered mental status, medication induced. Her past medical history is also significant for a recent history of UTI and C. difficile in addition to her history of having a CVA and reportedly residual effects in the right upper and lower extremity. Laboratory and imaging studies revealed that most likely the patient has a UTI, CT of the brain revealed no abnormality and the patient was noted to have an elevated lactate level. The patient was emergently intubated in the ED, and the patient was noted to be significantly hypertensive and a nicardipine infusion was instituted. Upon entering the ED the patient's blood pressure was noted to be 219/92, Cardizem infusion had been ordered. The patient was noted to have spontaneous movement of the right upper and lower extremity with a gag reflex. Critical care medicine was consulted. Subjective: 04/04: The patient was weaned off of nicardipine infusion. Normotensive the patient continues on labetalol twice a day scheduled home dosing. EEG attempted last evening however due to patient's movement bilaterally to complete artifact EEG reordered. Fentanyl infusion discontinued for daily sedation vacation approximately 7 hours ago the patient remains nonresponsive. Opens eyes spontaneously, moves limbs spontaneously but does not follow any commands. Brain MRI/MRA, and CT all negative findings. EEG scheduled for a.m.. The patient continues in severe metabolic acidosis, 2 Amps of sodium bicarbonate IV push given this a.m., sodium bicarbonate infusion increased. Lactate is cleared, creatinine is improving, CT of the abdomen and pelvis is pending this afternoon. Objective Vital Signs Date Time Temp Pulse Resp B/P (MAP) Pulse Ox O2 Delivery O2 Flow Rate FiO2 04/04/17 11:26 100 40 04/04/17 10:00 103 04/04/17 08:00 98.4 15 100/58 (72) 04/03/17 11:24 Ventilator Intake and Output 04/04/17 04/04/17 04/04/17 07:59 15:59 23:59 Intake Total 1660 ml 332 ml Output Total 275 ml Balance 1385 ml 332 ml Result Diagram: 04/04/17 0545 04/04/17 0545 Other Results Laboratory Tests Test 04/04/17 04:33 Blood Gas Puncture Site LT RADIAL Blood Gas Patient Temperature 98.6 Blood Gas HCO3 13 mmol/L (22-26) Blood Gas Base Excess -12.4 mmol/L (-2-2) Blood Gas Oxygen Saturation 97 % (90-100) Arterial Blood pH 7.28 (7.380-7.420) Arterial Blood Partial Pressure CO2 29 mmHg (38-42) Arterial Blood Partial Pressure O2 172 mmHg (61-120) Arterial Blood Oxygen Content 13.5 Vol % (12.0-20.0) Arterial Blood Carboxyhemoglobin 0.5 % (0-4) Arterial Blood Methemoglobin 1.2 % (0-2) Blood Gas Hemoglobin 9.6 G/DL (12.0-16.0) Oxygen Delivery Device VENTILATOR Blood Gas Ventilator Setting AC/500/PEEP5 Blood Gas Inspired Oxygen 40 % Imaging Last Impressions Head Magnetic Resonance Angiography 04/03/17 1119 Signed Impressions: Service Date/Time: Monday, April 03, 2017 13:11 - CONCLUSION: Negative for major branch vessel occlusion. Roque Tripathi MD FACR Head CT 04/03/17 0851 Signed Impressions: Service Date/Time: Monday, April 03, 2017 09:02 - CONCLUSION: Negative for acute process.. Roque Tripathi MD FACR Chest X-Ray 04/03/17 0851 Signed Impressions: Service Date/Time: Monday, April 03, 2017 09:38 - CONCLUSION: ET good position. Nasogastric tube needs advanced. Roque Tripathi MD FACR Cervical Spine CT 04/03/17 0000 Signed Impressions: Service Date/Time: Monday, April 03, 2017 09:07 - CONCLUSION: Fusion as above, negative for fracture. Roque Tripathi MD FACR Objective Remarks GENERAL: Well-developed well-nourished elderly female of stated age. Currently intubated on no sedation, nonresponsive SKIN: Warm and dry. HEAD: Atraumatic. Normocephalic. EYES: Pupils equal and round. No scleral icterus. No injection or drainage. ENT: No nasal bleeding or discharge. Mucous membranes pink and moist. NECK: Trachea midline. No JVD. CARDIOVASCULAR: Normal rate, regular rhythm. RESPIRATORY: No accessory muscle use. Clear to auscultation. Breath sounds equal bilaterally. Currently on CPAP trials GASTROINTESTINAL: Abdomen soft, non-tender, nondistended. No guarding. MUSCULOSKELETAL: Extremities without clubbing, cyanosis, or edema. No obvious deformities. NEUROLOGICAL: Awake and alert. RASS -3. No sedation, spontaneous movement of extremities. Spontaneous eye opening Does not follow commands. Per report the patient does have deficits status post CVA of right upper and lower extremity Urinary Catheter: Yes Assessment to: Continue Moore insert reason: Measure Accurate Output Date of Insertion: Apr 03, 2017 A/P Assessment and Plan This is a 76-year-old female with a history of a previous stroke presenting with altered mental status for unknown origin possibly bleed,CVA, toxic encephalopathy versus metabolic encephalopathy. Intubated for airway protection. Plan admit to ICU. Plan by systems: Neurologic: Toxicity versus metabolic encephalopathy History of CVA H/O seizures Neurochecks per ICU protocol DC Versed infusion Patient reportedly is allergic to propofol, fentanyl infusion for ventilator synchrony Daily sedation vacation TSH normal-3.0 Random cortisol level- WNL Ammonia level 04/03 MRI brain-negative for ischemia 04/03 MRA brain-negative for major branch occlusion 04/03 CT brain-no acute intracranial process 04/05 Obtain EEG- F/U results Patient normally takes Vimpat 100 mg BID, will continue Will hold patient's home meds baclofen 10 mg 3 times a day, and sertraline 50 mg twice a day, confirmed concern for serotonin syndrome and rhabdomyolysis. Patient has history of altered mental status secondary to being medication induced. Reported by family member -the patient had discontinued baclofen for approximately 3 months and took her initial dose of baclofen on 04/02 with a TID schedule dosing. Respiratory: Acute hypoxemic respiratory failure Maintain O2 sat greater than 92% DuoNeb nebs every 6 hours scheduled, every 2 hours when necessary Daily CPAP trials Obtain sputum culture 04/04-Chest x-ray lungs clear ABGs when clinically indicated- 7.28/29/172/13/-12.4 Cardiovascular: Hypertensive emergency-resolved History of hypertension Nicardipine infusion maintain SBP < 180, wean as tolerated , discontinued 04/04 Labetalol, hydralazine IV , PRN to maintain SBP <160 Initial troponin <0.02, continue to trend Begin metoprolol XL 50 mg BID, (home med)- Continue metoprolol 25 mg every 6 hours Renal: UTI Rhabdomyolysis Maintain Moore catheter -- Strict I/Os FEN/GI: Chronic kidney disease stage III ANNA Acute on chronic kidney disease Severe metabolic acidosis Monitor BMP Replete electrolytes as needed Previous Creatinine 12/2016- 1.15, upon admission 2.76, now downtrending creatinine 1.6 Trend Creatinine kinase 885, continue to monitor Maintain OGT Continue pravastatin 40 mg daily at bedtime Give 2 Amps sodium bicarbonate IV now, increase sodium bicarbonate infusion to 150 cc/hour Zofran for nausea Famotidine for GI prophylaxis Bowel regimen Heme/ID: Sepsis Lactic acidemia-clear Monitor CBC Follow-up urine blood and sputum cultures Follow-up influenza and pneumococcal urine antigen Obtain C. difficile antigen, patient has recent history of C. difficile colitis Patient normally on Plavix hold for now (await CT abd and pelvis) Lactate level 1.8 Endocrine: Diabetes mellitus Glucose monitoring per ICU protocol, low dose regimen Hold metformin-patient has lactic acidosis, which can be caused by metformin -- SSI Prophylaxis: GI Prophylaxis Famotidine twice a day DVT Prophylaxis -- SCDs Lines: Peripheral IVs providing adequate access. Central line if indicated Dispo: my billing statement This patient remains critically ill with one or more organ systems which are or may become a threat to life. I have spent in excess of 37 minutes discontinuously in the care and management of this patient. This time is exclusive of procedures, and includes, but is not limited to, evaluation of the patient, review of the medical record, discussions with family, consultants, nursing staff, or respiratory therapy, and documentation in the medical record. Physician Kia Cheema MD Apr 04, 2017 13:07
[2017-04-04] MEDS: SODIUM BICARBONATE 8.4% INJ 150 MEQ in DEXTROSE 5% IN WATE 1000ML INJ 850 ML IV SCH ×4 (15:09→22:54)
--- NOTE | 2017-04-04 16:39 | RADRPT ---
EXAM DATE/TIME: 04/04/2017 16:05 [facility] COMPARISON: CT ABDOMEN & PELVIS W/O CONTRAST, January 03, 2017, 17:16. INDICATIONS : Diffuse abdomen pain with vomiting. ORAL CONTRAST: No oral contrast ingested. RADIATION DOSE: 15.16 CTDIvol (mGy) MEDICAL HISTORY : Seizures. Hypertension. Diabetes mellitus type 2.Cervical cancer. SURGICAL HISTORY : Appendectomy. Cholecystectomy. ENCOUNTER: Initial ACUITY: 1 day PAIN SCALE: Non-responsive LOCATION: Bilateral lower quadrant TECHNIQUE: Volumetric scanning of the abdomen and pelvis was performed. Using automated exposure control and ad justment of the mA and/or kV according to patient size, radiation dose was kept as low as reasonably achievable to obtain optimal diagnostic quality images. DICOM format image data is available electro nically for review and comparison. FINDINGS: LOWER LUNGS: Atelectasis in the dependent portion of the left lung base. LIVER: Cholecystectomy clips are noted in the gallbladder fossa. Liver is within normal limits. SPLEEN: Normal size without lesion. PANCREAS: Within normal limits. KIDNEYS: Normal in size and shape. There is no mass, stone, or hydronephrosis. ADRENAL GLANDS: Within normal limits. VASCULAR: Diffuse arterial calcification. Aortic diameter within normal limits. BOWEL/MESENTERY: Nasogastric tube tip at the gastroesophageal junction. No evidence of bowel dilatation. No free air o r free fluid. Appendix not identified. ABDOMINAL WALL: Within normal limits. RETROPERITONEUM: There is no lymphadenopathy. BLADDER: Mild edema surrounding the collapsed urinary bladder. Moore catheter in place. REPRODUCTIVE: Within normal limits. INGUINAL: There is no lymphadenopathy or hernia. MUSCULOSKELETAL: Degenerative findings of the lumbar spine. CONCLUSION: 1. Mild edema surrounding the urinary bladder, question cystitis. Moore catheter in place. 2. Status post cholecystectomy. 3. Left lower lobe atelectasis. 4. Nasogastric tube tip at the gastroesophageal junction. Kd Doty MD on April 04, 2017 at 16:28 Board Certified Radiologist. This report was verified electronically.
[2017-04-04] MEDS: PRAVASTATIN SOD 40 MG TAB PO SCH (22:55)
[2017-04-05] VITALS (19 sets, daily range): BP systolic 122–128; BP diastolic 57–69; PULSE 75–116; RESP 17–23; TEMP 99.1–99.8; O2SAT 99–100
[2017-04-05] MEDS: fentaNYL DRIP 250 ML IV PRN ×2 (02:24→20:39)
[2017-04-05] MEDS: CHLORHEXIDINE GLUCONATE 2 % 1 PACK (2 CLOTHS) TOP SCH (04:00)
[2017-04-05] MEDS: SODIUM BICARBONATE 8.4% INJ 150 MEQ in DEXTROSE 5% IN WATE 1000ML INJ 850 ML IV SCH ×2 (04:11)
[2017-04-05] MEDS: RESP: ALBUTEROL 2.5 MG/IPRATROPIUM 0.5 MG NEB (SCH) INH ×4 (04:23→21:13)
--- NOTE | 2017-04-05 05:00 | RADRPT ---
EXAM DATE/TIME: 04/05/2017 03:36 [facility] COMPARISON: CHEST SINGLE AP, April 04, 2017, 3:01. INDICATIONS : Short of breath. MEDICAL HISTORY : Diabetes mellitus type II. Hypertension CVA SURGICAL HISTORY : Fusion, cervical. Cholecystectomy. ENCOUNTER: Subsequent ACUITY: 3 days PAIN SCORE: 0/10 LOCATION: Bilateral chest FINDINGS: The lungs are clear without infiltrate, nodule, or mass. There is no appreciable pleural effusion fo r technique. Heart and mediastinum are unremarkable. ET tube, and NG tube have not changed. CONCLUSION: No acute cardiopulmonary disease. Betty Dennis MD on April 05, 2017 at 4:58 Board Certified Radiologist. This report was verified electronically.
[2017-04-05] MEDS: METOPROLOL TARTRATE 25 MG TAB PO SCH ×4 (05:25→23:47)
[2017-04-05 06:18] LABS: AUTOMATED NEUTROPHIL # 6.9 TH/MM3 (1.8-7.7); BASOPHIL % 0.4 % (0.0-2.0); EOSINOPHIL % 0.3 % (0.0-4.0); HEMATOCRIT 25.8 % (35.0-46.0); LYMPH % 17.8 % (9.0-44.0); LYMPHOCYTE # 1.7 TH/MM3 (1.0-4.8); MEAN CELL VOLUME 86.6 FL (80.0-100.0); MEAN CORPUSCULAR HEMOGLOBIN 30.1 PG (27.0-34.0); MEAN CORPUSCULAR HGB CONC 34.8 % (32.0-36.0); MEAN PLATELET VOLUME 7.6 FL (7.0-11.0); NEUT % 71.5 % (16.0-70.0); PLATELET COUNT 294 TH/MM3 (150-450); RED BLOOD COUNT 2.98 MIL/MM3 (4.00-5.30); RED CELL DISTRIBUTION WIDTH 15.4 % (11.6-17.2); WHITE BLOOD COUNT 9.7 TH/MM3 (4.0-11.0)
[2017-04-05 06:49] LABS: ALBUMIN 2.7 GM/DL (3.4-5.0); AST (GOT) 30 U/L (15-37); BICARBONATE 32.4 MEQ/L (21.0-32.0); BLOOD UREA NITROGEN 19 MG/DL (7-18); CALCIUM 7.8 MG/DL (8.5-10.1); CHLORIDE 100 MEQ/L (98-107); GLOMERULAR FILTRATION RATE 40 ML/MIN (>89); GLUCOSE,RANDOM 141 MG/DL (74-106); SODIUM (NA) 141 MEQ/L (136-145)
[2017-04-05 06:54] LABS: ALKALINE PHOSPHATASE 99 U/L (45-117); ALT (GPT) 17 U/L (10-53); TOTAL BILIRUBIN ADULT 0.3 MG/DL (0.2-1.0); TOTAL PROTEIN 6.4 GM/DL (6.4-8.2)
[2017-04-05] MEDS: INSULIN ASPART SUPPLEMENTAL SCALE SQ SCH ×4 (08:00→20:37)
[2017-04-05] MEDS: DOCUSATE SODIUM 50 MG/SENNA 8.6 MG TAB PO SCH ×2 (08:34→20:37)
[2017-04-05] MEDS: FAMOTIDINE 20 MG/2 ML VIAL IV PUSH SCH ×2 (08:34→20:37)
[2017-04-05] MEDS: ARTIFICIAL TEARS OPTH SOLN 15 ML BTL EACH EYE SCH ×3 (08:35→17:42)
[2017-04-05] MEDS: LACOSAMIDE 100 MG TAB PO SCH ×2 (08:35→20:37)
[2017-04-05] MEDS: SODIUM CHLORIDE 0.9% FLUSH 10 ML FLUSH IV FLUSH SCH ×2 (08:35→20:37)
[2017-04-05] MEDS: CHLORHEXIDINE 0.12% (ORAL KIT) 15 ML CUP MT SCH ×2 (08:36→20:36)
[2017-04-05] MEDS ORDERED: POTASSIUM PHOSPHATE MONOBASIC 500 MG TAB PO PRN (09:15)
[2017-04-05] MEDS ORDERED: POTASSIUM PHOSPHATE INJ 30 MMOL in SODIUM CHLOR 0.9% 250 ML INJ 250 ML IV PRN (09:15)
[2017-04-05] MEDS ORDERED: MAGNESIUM OXIDE 400 MG TAB PO PRN (09:15)
[2017-04-05] MEDS ORDERED: POTASSIUM CHLOR 20 MEQ PREMIX 100 ML IV PRN (09:15)
[2017-04-05] MEDS ORDERED: POTASSIUM CHLOR 40 MEQ PREMIX 100 ML IV PRN (09:15)
[2017-04-05] MEDS ORDERED: MAGNESIUM SULFATE INJ 2 GM in SODIUM CHLORIDE 0.9% INJ 96 ML IV PRN (09:15)
[2017-04-05] MEDS ORDERED: MAGNESIUM SULFATE INJ 4 GM in SODIUM CHLORIDE 0.9% INJ 92 ML IV PRN (09:15)
[2017-04-05] MEDS ORDERED: POTASSIUM CHLORIDE 25 MEQ EFFERVESCENT TAB PO PRN (09:15)
[2017-04-05] MEDS ORDERED: SODIUM PHOSPHATE INJ 30 MMOL in SODIUM CHLOR 0.9% 250 ML INJ 240 ML IV PRN (09:15)
[2017-04-05] MEDS ORDERED: POTASSIUM PHOSPHATE MONOBASIC 500 MG TAB PO/TUBE PRN (09:15)
--- NOTE | 2017-04-05 09:18 | HHI.CCPN ---
Subjective Remarks/Hospital Course This is a 76-year-old female that presented to the ED for evaluation of altered mental status. Per report, according to EMS the patient normally is more alert and has a history of stroke, he was able to speak with the patient's sister who states that she is also power of state's attorney, the patient apparently normally is ambulatory and can carry on a conversation without any difficulty. Per records reviewed, the patient was last seen normal and at her baseline at 1 am. The patient then sat down in her lazy chair, her sister also noted that she started beating her head against a piece of furniture. The patient was noted to have a right frontal contusion upon presentation to the ED .She had a GCS of 7-8 on arrival. The patient's medical history is significant for a recent admission 12/2016 for altered mental status, medication induced. Her past medical history is also significant for a recent history of UTI and C. difficile in addition to her history of having a CVA and reportedly residual effects in the right upper and lower extremity. Laboratory and imaging studies revealed that most likely the patient has a UTI, CT of the brain revealed no abnormality and the patient was noted to have an elevated lactate level. The patient was emergently intubated in the ED, and the patient was noted to be significantly hypertensive and a nicardipine infusion was instituted. Upon entering the ED the patient's blood pressure was noted to be 219/92, Cardizem infusion had been ordered. The patient was noted to have spontaneous movement of the right upper and lower extremity with a gag reflex. Critical care medicine was consulted. 04/04: The patient was weaned off of nicardipine infusion. Normotensive the patient continues on labetalol twice a day scheduled home dosing. EEG attempted last evening however due to patient's movement bilaterally to complete artifact EEG reordered. Fentanyl infusion discontinued for daily sedation vacation approximately 7 hours ago the patient remains nonresponsive. Opens eyes spontaneously, moves limbs spontaneously but does not follow any commands. Brain MRI/MRA, and CT all negative findings. EEG scheduled for a.m.. The patient continues in severe metabolic acidosis, 2 Amps of sodium bicarbonate IV push given this a.m., sodium bicarbonate infusion increased. Lactate is cleared, creatinine is improving, CT of the abdomen and pelvis is pending this afternoon. Subjective: 04/05 CT report from yesterday shows bladder edema consistent with cystitis. URine culture with GNR Blood cultures NGTD. . Getting EEG now. Objective Vital Signs Date Time Temp Pulse Resp B/P (MAP) Pulse Ox O2 Delivery O2 Flow Rate FiO2 04/05/17 06:00 84 04/05/17 04:20 100 40 04/05/17 04:00 99.8 20 04/05/17 00:00 124/60 (81) 04/03/17 11:24 Ventilator Intake and Output 04/05/17 04/05/17 04/05/17 07:59 15:59 23:59 Intake Total 1250 ml Output Total 350 ml Balance 900 ml Result Diagram: 04/05/17 0530 04/05/17 0520 Other Results Microbiology Date/Time Source Procedure Growth Status 04/03/17 09:54 Urine Catheterized Urine Streptococcus pneumoniae Antigen (M - Final PRESUMPTIVE NEGATIVE FOR STREPTOCOCCU... Complete Imaging Last Impressions Head Magnetic Resonance Angiography 04/03/17 1119 Signed Impressions: Service Date/Time: Monday, April 03, 2017 13:11 - CONCLUSION: Negative for major branch vessel occlusion. Roque Tripathi MD FACR Head CT 04/03/17 0851 Signed Impressions: Service Date/Time: Monday, April 03, 2017 09:02 - CONCLUSION: Negative for acute process.. Roque Tripathi MD FACR Chest X-Ray 04/03/17 0851 Signed Impressions: Service Date/Time: Monday, April 03, 2017 09:38 - CONCLUSION: ET good position. Nasogastric tube needs advanced. Roque Tripathi MD FACR Cervical Spine CT 04/03/17 0000 Signed Impressions: Service Date/Time: Monday, April 03, 2017 09:07 - CONCLUSION: Fusion as above, negative for fracture. Roque Tripathi MD FACR Objective Remarks GENERAL: Well-developed well-nourished elderly female. Currently intubated on fentanyl SKIN: Warm and dry. HEAD: Atraumatic. Normocephalic. EYES: R periorbital ecchmosis. Pupils equal and round. No scleral icterus. No injection or drainage. ENT: No nasal bleeding or discharge. Mucous membranes pink and moist. NECK: Trachea midline. No JVD. CARDIOVASCULAR: Normal rate, regular rhythm. RESPIRATORY: No accessory muscle use. Clear to auscultation. Breath sounds equal bilaterally. GASTROINTESTINAL: Abdomen soft, non-tender, nondistended. No guarding. MUSCULOSKELETAL: Extremities without clubbing, cyanosis, or edema. No obvious deformities. NEUROLOGICAL: Eyes flutter open, does not make eye contact or track. All extremities rigid with tonic clonic activity. Per report the patient does have deficits status post CVA of right upper and lower extremity Date of Insertion: Apr 03, 2017 A/P Assessment and Plan This is a 76-year-old female with a history of a previous stroke presenting with altered mental status for unknown origin possibly bleed,CVA, toxic encephalopathy versus metabolic encephalopathy. Intubated for airway protection. Plan by systems: Neurologic: H/o Polio Toxicity versus metabolic encephalopathy History of CVA with R sided deficits H/O seizures Anxiety/depression Neurochecks per ICU protocol EEG this morning with evidence of seizures D/W Dr Martinez. On Vimpat 100 twice a day. Loaded with fosphenytoin. Placed on continuous EEG which still demonstrated spikes so Versed drip was restarted and then titrated up to 6 mg/hr which resulted in resolution of epileptiform activity. Fentanyl as needed for now the sedation. Patient does have history of chronic pain TSH normal-3.0 Random cortisol level only 3.5. Unclear significance as patient had lactic acidemia but also hypertensive at the time. Check Ammonia level 04/03 MRI brain-negative for ischemia 04/03 MRA brain-negative for major branch occlusion 04/03 CT brain-no acute intracranial process patient's home meds baclofen 10 mg 3 times a day, and sertraline 50 mg twice a day have been on hol due to concern for serotonin syndrome and rhabdomyolysis. Patient has history of altered mental status secondary to being medication induced. Reported by family member -the patient had discontinued baclofen for approximately 3 months and took her initial dose of baclofen on 04/02 with a TID schedule dosing. Neurology seeing, Dr. Martinez. Lumbar puncture ordered. Plavix on hold since admission. LP can be performed on 04/07. Empirically on vancomycin, Rocephin, acyclovir. Respiratory: Acute hypoxemic respiratory failure Maintain O2 sat greater than 92% DuoNeb nebs every 6 hours scheduled, every 2 hours when necessary Hold on CPAP trials today due to neurologic condition 04/04-Chest x-ray lungs clear Cardiovascular: Hypertensive emergency-resolved History of hypertension Hyperlipidemia Nicardipine infusion maintain SBP < 180, wean as tolerated , discontinued 04/04 Labetalol, hydralazine IV , PRN to maintain SBP <160 Serial troponins were negative. Continue metoprolol 25 mg every 6 hours Holding metoprolol XL 50 mg BID, (home med)- Renal: UTI Rhabdomyolysis Maintain Moore catheter -- Strict I/Os FEN/ Chronic kidney disease stage III ANNA Acute on chronic kidney disease Metabolic alkalosis Monitor BMP Replete electrolytes as needed Previous Creatinine 12/2016- 1.15, upon admission 2.76, now downtrending creatinine 1.6 Creatinine kinase 885 on 04/03, downtrendng. Maintain OGT - Start Glucerna with goal rate 45 ml/hr and followup nutrition recs. Continue pravastatin 40 mg daily at bedtime Now alkalosis and hypokalemia on bicarb drip. Will d/c. LR 84 ml/hr. GI: Esophageal stricture GERD Zofran for nausea Famotidine for GI prophylaxis Bowel regimen ID: Sepsis Lactic acidemia-clear UTI Monitor CBC Blood cultures 04/03 - negative Urine culture 04/03 - Escherichia coli, pansensitive Strep pneumococcal antigen 04/03 - negative Recent history of C. difficile colitis. Lactinex tid. Will d/c cefepime today based on urine culture data. Acyclovir initiated by Dr. Martinez. Use rocephin/vancomycin for meningitis coverage pending LP results. HEME: Patient normally on Plavix hold for now (await CT abd and pelvis) Lactate level 1.8 Endocrine: Diabetes mellitus Glucose monitoring per ICU protocol, low dose regimen Hold metformin-patient has lactic acidosis, which can be caused by metformin - - SSI Prophylaxis: GI Prophylaxis Famotidine twice a day DVT Prophylaxis -- SCDs Lines: Peripheral IVs providing adequate access. Dispo: Patient is critically ill with acute clinical seizure activity that could result in secondary neurologic injury. She required emergent therapy. Multiple discussions with project technician and with Dr. Martinez throughout the day to manage sedation and anticonvulsants appropriately and ensure suppression of seizure activity. Discussed with bedside RN. Critical care time 55 minutes exclusive of separately billable procedures. Minerva Calabrese MD Apr 05, 2017 09:18
--- NOTE | 2017-04-05 10:01 | MB ---
cc: XUAN VALERA M.D. DATE OF CONSULTATION 04/05/2017 REASON FOR CONSULTATION Mental status change. HISTORY OF PRESENT ILLNESS This is a 76-year-old woman who came to the emergency room on 04/03 of alteration mental status change. She has a history of stroke in the past. She suddenly developed mental status change where she was confused, started hitting her head against a piece of furniture. GCS on arrival was 78. She has a recent UTI and C. Difficile infection. The patient has been intubated. PAST MEDICAL HISTORY 1. History of cervical cancer. 2. Anemia 3. Congestive heart failure 4. Stroke in the past 5. Esophageal stricture 6. History of seizures in the past. 7. Cholecystectomy 8. Appendectomy 9. Hysterectomy 10. Cervical cancer removal 11. Cervical spine surgery 12. Hernandez fundoplication for gastroesophageal reflux disease. ALLERGIES INFLUENZA VIRUS, EGG, CODEINE, MEPERIDINE, MORPHINE, TYLENOL, HYDROCODONE. MEDICATIONS At home: 1. Eliquis 2. Baclofen 3. Plavix 4. Dexilant 5. Trazodone 6. Vimpat 7. ProAir 8. Metformin 9. Toprol XL 10. Pravachol 11. Sertraline NEUROLOGIC EXAMINATION Pupils are equal and reactive. The patient is nonresponsive does not follow commands. There is no focal motor deficit noted. Reflexes are 2+ symmetric. MRI of the brain chronic ischemic change. No acute change present. MRA of the brain is negative. MRA of the neck negative. CT brain negative. Cervical spine CT, fusion no acute change present. LABORATORY DATA White count 9007, hemoglobin 9, hematocrit 25% platelet count 294,000. The PT 11.3, INR 1.1, APTT 20.8. Sodium is 141, potassium 2.7, chloride 100, CO2 32, the BUN is 19, creatinine 1.3, GFR is 40, glucose 141, AST 30, ALT 17. Tox screen positive for benzodiazepines otherwise negative. Urinalysis, the pH is 5.5, specific gravity 1.019, protein 100, small occult blood is identified, 40 RBCs are seen, innumerable WBCs are seen in the urine. IMPRESSION Possible metabolic encephalopathy possibly related to UTI. RECOMMENDATIONS We will check EEG to rule out any type of seizure activity. ADDENDUM Since the original dictation, an EEG has been accomplished showing generalized epileptiform activity. Therefore recommend starting the patient on Cerebyx with a loading dose of 1000 mg and a maintenance dose of 100 mg IV q.8 h. We will recheck an EEG later this afternoon. Also recommend a lumbar puncture. Apparently the patient was on Plavix which was stopped three days ago. We will have to wait two days to perform LP. MD CHINA Rascon/STAN /9:18 AM /10:22 AM
[2017-04-05] MEDS: CEFEPIME INJ 2,000 MG in SODIUM CHLORIDE 0.9% INJ 100 ML IV SCH (10:27)
[2017-04-05] MEDS ORDERED: LORazepam 2 MG/ML VIAL IV PUSH PRN (10:45)
[2017-04-05] MEDS ORDERED: MIDAZOLAM HCL 2 MG/2 ML VIAL IV PUSH ONE (11:00)
[2017-04-05] MEDS ORDERED: FOSPHENYTOIN INJ 1,000 MGPE in SODIUM CHLORIDE 0.9% INJ 50 ML IV ONE (11:00)
[2017-04-05] MEDS: LACTATED RINGER'S 1000 ML INJ 1,000 ML IV SCH ×2 (11:17→20:37)
[2017-04-05] MEDS: cefTRIAXone INJ 2,000 MG in SODIUM CHLORIDE 0.9% INJ 100 ML IV SCH ×2 (11:17→22:16)
[2017-04-05] MEDS: POTASSIUM CHLOR 20 MEQ PREMIX 100 ML IV PRN ×3 (11:42→15:57)
[2017-04-05] MEDS: LACTOBACILLUS ACIDOPHILUS 1 GM PACKET OG-TUBE SCH ×2 (14:11→17:20)
[2017-04-05] MEDS: ACYCLOVIR INJ 700 MG in SODIUM CHLORIDE 0.9% INJ 100 ML IV SCH ×2 (14:11→22:16)
[2017-04-05] MEDS: FOSPHENYTOIN SODIUM 100 MG PE/2 ML VIAL IV SCH (17:20)
--- NOTE | 2017-04-05 20:05 | MG ---
cc: CALOS RUIZ M.D. Sex: F DATE OF : 1940, 76 EEG REFERRING PHYSICIAN: Dr. Lugo. Room 525. Photic stimulation, [address] Martinez came into see the patient. He ordered Cerebyx, intubated. CT is negative. EEG 09/17/2010 was normal. Admitted for change in mental status. History of anemia. Hyperlipidemia. Seizures. Currently on sodium bicarb, cefepime, Lopressor, Vimpep, fentanyl 200 mcg. DESCRIPTION OF RECORD Patient had spike and slow wave activity seen bilaterally, seen from the initial portion of the recording, seen in a rhythmic pattern. EKG some artifact, unable to determine the rhythm. The patient had continuous ___ and wave discharges. IMPRESSION: Abnormal EEG due to epileptic activity in this recording. Clinical correlation. MD WARREN Yates/CYNDY /6:54 PM /7:39 PM
[2017-04-05] MEDS: PRAVASTATIN SOD 40 MG TAB PO SCH (20:37)
--- NOTE | 2017-04-05 21:05 | MG ---
cc: BESSIE HERR MD Lab No: Date: 04/05/17 Age: 76 Sex: F Race: CONTINUOUS ELECTROENCEPHALOGRAM 1940 There is no EEG number. REFERRING PHYSICIAN Dr. Martinez This is a continuous monitor for seizure activity. The patient already has been on anti-seizure medicine. The overall description of record this first portion shows some spike and wave discharges. Bilaterally only short lived just only for two minutes then again it restarts again at 1:56 p.m. There is again some issues with impedance. It is only for a few epochs. Again, there were some spike and wave discharges in that as well. In the last portion, restarts at 5:19 p.m. Again there is portions that are for some reason eliminated from the recording. They may be just trying to show the spike and waves, but again there were lower amplitude spike and waves seen in the recording. However, there may have been some mild improvement in the background with interspersed background ictal slowing. However, this is prolonged. There are episodes where they are higher amplitude spike and waves. Does not state in the documentation if there had been any change in medication, however, as the EEG ends there is still some spike and wave discharges noted in a continuous fashion. IMPRESSION Abnormal EEG due to persistent epileptic activity bilaterally in the recording. Clinical correlation, medication adjustment as per the attending neurologist. Bessie Herr MD DF/ /7:12 PM /8:36 PM
[2017-04-06] VITALS (18 sets, daily range): BP systolic 132–159; BP diastolic 62–71; PULSE 84–107; RESP 14–21; TEMP 99.2–100; O2SAT 98–100
[2017-04-06 00:29] LABS: PHENYTOIN (DILANTIN) 11.3 MCG/ML (10.0-20.0)
[2017-04-06] MEDS: FOSPHENYTOIN SODIUM 100 MG PE/2 ML VIAL IV SCH ×4 (01:11→20:01)
[2017-04-06] MEDS: MIDAZOLAM 100 MG/100 ML INJ 100 ML IV PRN ×2 (02:14→16:49)
[2017-04-06] MEDS: RESP: ALBUTEROL 2.5 MG/IPRATROPIUM 0.5 MG NEB (SCH) INH ×4 (03:59→20:17)
[2017-04-06] MEDS: CHLORHEXIDINE GLUCONATE 2 % 1 PACK (2 CLOTHS) TOP SCH (04:00)
[2017-04-06] MEDS: METOPROLOL TARTRATE 25 MG TAB PO SCH ×4 (05:26→23:50)
[2017-04-06] MEDS: LACTATED RINGER'S 1000 ML INJ 1,000 ML IV SCH ×2 (05:27→16:54)
[2017-04-06] MEDS: INSULIN ASPART SUPPLEMENTAL SCALE SQ SCH ×4 (08:00→23:50)
[2017-04-06 08:25] LABS: HEMATOCRIT 24.8 % (35.0-46.0); HEMOGLOBIN 8.3 GM/DL (11.6-15.3); MEAN CELL VOLUME 89.2 FL (80.0-100.0); MEAN CORPUSCULAR HGB CONC 33.6 % (32.0-36.0); MEAN PLATELET VOLUME 7.6 FL (7.0-11.0); PLATELET COUNT 247 TH/MM3 (150-450); RED BLOOD COUNT 2.79 MIL/MM3 (4.00-5.30); RED CELL DISTRIBUTION WIDTH 15.6 % (11.6-17.2); WHITE BLOOD COUNT 8.4 TH/MM3 (4.0-11.0)
[2017-04-06] MEDS: LACOSAMIDE 100 MG TAB PO SCH ×2 (08:34→20:01)
[2017-04-06] MEDS: SODIUM CHLORIDE 0.9% FLUSH 10 ML FLUSH IV FLUSH SCH ×2 (08:34→20:01)
[2017-04-06] MEDS: ARTIFICIAL TEARS OPTH SOLN 15 ML BTL EACH EYE SCH ×3 (08:34→16:49)
[2017-04-06] MEDS: FAMOTIDINE 20 MG/2 ML VIAL IV PUSH SCH (08:34)
[2017-04-06] MEDS: LACTOBACILLUS ACIDOPHILUS 1 GM PACKET OG-TUBE SCH ×3 (08:34→16:49)
[2017-04-06] MEDS: DOCUSATE SODIUM 50 MG/SENNA 8.6 MG TAB PO SCH ×2 (08:34→20:01)
[2017-04-06] MEDS: CHLORHEXIDINE 0.12% (ORAL KIT) 15 ML CUP MT SCH ×2 (08:35→20:01)
[2017-04-06 08:40] LABS: BICARBONATE 23.3 MEQ/L (21.0-32.0); CALCIUM 7.5 MG/DL (8.5-10.1); CREATININE 1.28 MG/DL (0.50-1.00)
[2017-04-06] MEDS ORDERED: FOSPHENYTOIN SODIUM 100 MG PE/2 ML VIAL IV ONE (08:45)
--- NOTE | 2017-04-06 08:47 | HHI.PR ---
Review/Management Diagnosis Sz on EEG---subclinical--improved Plan Increase versed to 7 and increase cerebyx and follow continuous EEG LP when off plavix 5 days Diagnosis/Plan: Subjective Subjective Comments No acute events reported On iv versed at 6 and cerebyx. EEG improved with reduced sharp waves, but still present Active Medications Current Medications Medications (Trade) Dose Ordered Sig/Georgie Route Start Time Stop Time Status Last Admin Fentanyl Citrate 250 ml @ 5 mls/hr TITRATE PRN IV 04/03/17 09:45 04/05/17 20:39 (NS Flush) 2 ml UNSCH PRN IV FLUSH 04/03/17 11:15 (NS Flush) 2 ml BID IV FLUSH 04/03/17 21:00 04/06/17 08:34 (Tylenol) 650 mg Q6H PRN PO 04/03/17 11:15 (Tears Naturale Opth Soln) 1 drop TID EACH EYE 04/03/17 13:00 04/06/17 08:34 (Duoneb Neb) 1 ampule Q6HR NEB INH 04/03/17 16:00 04/06/17 08:06 (Duoneb Neb) 1 ampule Q2HR NEB PRN INH 04/03/17 11:15 Miscellaneous Information 1 Q361D XX 04/03/17 11:15 04/03/17 11:15 (Chlorhexidine 2% Cloth) 3 pack Taper DAILY@04 TOP 04/04/17 04:00 03/31/18 03:59 04/06/17 04:00 (Chlorhexidine 2% Cloth) 3 pack UNSCH PRN TOP 04/03/17 11:15 (Jenn-Colace) 1 tab BID PO 04/03/17 21:00 04/06/17 08:34 (Milk Of Magnesia Liq) 30 ml Q12H PRN PO 04/03/17 11:15 (Senokot) 17.2 mg Q12H PRN PO 04/03/17 11:15 (Dulcolax Supp) 10 mg DAILY PRN RECTAL 04/03/17 11:15 (Lactulose Liq) 30 ml DAILY PRN PO 04/03/17 11:15 (Peridex 0.12% Liq) 15 ml BID@08,20 MT 04/03/17 20:00 04/06/17 08:35 (NovoLOG SUPPLEMENTAL SCALE) 1 ACHS SLIDING SCALE SQ 04/03/17 12:00 04/04/17 17:37 (D50w (Vial) Inj) 50 ml UNSCH PRN IV PUSH 04/03/17 11:30 (Glucagon Inj) 1 mg UNSCH PRN OTHER 04/03/17 11:30 (Vimpat) 100 mg BID PO 04/03/17 14:15 04/06/17 08:34 (Pravachol) 40 mg HS PO 04/03/17 21:00 04/05/17 20:37 (Trandate Inj) 10 mg Q4H PRN IV PUSH 04/03/17 14:30 (Apresoline Inj) 20 mg Q4H PRN IV PUSH 04/03/17 14:30 (Lopressor) 25 mg Q6HR PO 04/03/17 21:00 04/06/17 05:26 (Pepcid Inj) 10 mg Q12HR IV PUSH 04/04/17 21:00 04/06/17 08:34 (Pepcid) 20 mg Q12HR PRN PO 04/04/17 09:30 Sodium Bicarbonate 150 meq/Dextrose 1,000 ml @ 150 mls/hr Q6H40M IV 04/04/17 15:00 Future Hold 04/05/17 04:11 Potassium Chloride 100 ml @ 50 mls/hr Q2H PRN IV 04/05/17 09:15 Potassium Chloride 100 ml @ 50 mls/hr Q2H PRN IV 04/05/17 09:15 04/05/17 15:57 (K-Lyte Cl Eff) 50 meq UNSCH PRN PO 04/05/17 09:15 Potassium Chloride 100 ml @ 25 mls/hr UNSCH PRN IV 04/05/17 09:15 Potassium Chloride 100 ml @ 50 mls/hr Q2H PRN IV 04/05/17 09:15 Magnesium Sulfate 4 gm/Sodium Chloride 100 ml @ 50 mls/hr UNSCH PRN IV 04/05/17 09:15 (Mag-Ox) 800 mg UNSCH PRN PO 04/05/17 09:15 Magnesium Sulfate 2 gm/Sodium Chloride 100 ml @ 50 mls/hr UNSCH PRN IV 04/05/17 09:15 (K-Phos) 2,000 mg Q4H PRN PO 04/05/17 09:15 Sodium Phosphate 30 mmol/Sodium Chloride 250 ml @ 42 mls/hr UNSCH PRN IV 04/05/17 09:15 (K-Phos) 2,000 mg UNSCH PRN PO/TUBE 04/05/17 09:15 Potassium Phosphate 30 mmol/ Sodium Chloride 260 ml @ 42 mls/hr UNSCH PRN IV 04/05/17 09:15 (Cerebyx Inj) 100 mgpe Q8H IV 04/05/17 18:00 04/06/17 08:34 Acyclovir Sodium 700 mg/Sodium Chloride 100 ml @ 100 mls/hr Q12H IV 04/05/17 11:00 04/05/17 22:16 Ceftriaxone Sodium 2000 mg/ Sodium Chloride 100 ml @ 200 mls/hr Q12H IV 04/05/17 11:00 04/05/17 22:16 (Lactinex Pkt) 1 gm TID OG-TUBE 04/05/17 13:00 04/06/17 08:34 (Ativan Inj) 2 mg Q5M PRN IV PUSH 04/05/17 10:45 04/05/17 14:18 Lactated Ringer's 1,000 ml @ 100 mls/hr Q10H IV 04/05/17 10:45 04/06/17 05:27 Midazolam HCl 100 ml @ 2 mls/hr TITRATE PRN IV 04/05/17 11:15 04/06/17 02:14 Allergies Allergies Coded Allergies Influenza Virus Vaccines (Unverified Allergy, Intermediate, 02/04/17) egg (Unverified Allergy, Intermediate, 02/04/17) codeine (Unverified Allergy, Mild, 02/04/17) meperidine (Unverified Allergy, Mild, 02/04/17) morphine (Unverified Allergy, Mild, 02/04/17) acetaminophen (Unverified Adverse Reaction, Mild, HEADACHE, 02/04/17) hydrocodone (Unverified Adverse Reaction, Mild, HEADACHE, 02/04/17) Exam I&O / VS Vital Signs Date Time Temp Pulse Resp B/P (MAP) Pulse Ox O2 Delivery O2 Flow Rate FiO2 04/06/17 08:07 100 35 04/06/17 06:00 91 04/06/17 04:17 100 40 04/06/17 04:00 96 04/06/17 04:00 40 04/06/17 04:00 99.8 96 21 150/69 (96) 100 04/06/17 02:00 84 04/06/17 01:06 100 40 04/06/17 00:00 99.9 95 19 145/64 (91) 100 04/06/17 00:00 95 04/06/17 00:00 40 04/05/17 22:08 100 40 04/05/17 22:00 87 04/05/17 20:00 40 04/05/17 20:00 99.5 86 19 128/60 (82) 100 04/05/17 20:00 86 04/05/17 19:48 100 40 04/05/17 18:00 91 04/05/17 16:04 100 40 04/05/17 16:00 96 04/05/17 16:00 99.1 96 18 122/57 (78) 99 04/05/17 16:00 40 04/05/17 14:00 90 04/05/17 12:55 100 40 04/05/17 12:00 99.3 94 23 125/69 (87) 100 04/05/17 12:00 94 04/05/17 12:00 40 04/05/17 10:00 116 04/05/17 09:06 100 40 Exam Comments sedated, nonresponsive CN--Pupils 1 mm symmetric and reactive. EOM intact to Dolls maneuver MOTOR--no focal sx. No clinical tonic clonic activity Objective Micro and Labs Laboratory Tests Test 04/05/17 13:20 04/05/17 23:38 04/06/17 07:39 Ammonia 41 Potassium Level 3.7 4.0 Phenytoin (Dilantin) Level 11.3 White Blood Count 8.4 Red Blood Count 2.79 Hemoglobin 8.3 Hematocrit 24.8 Mean Corpuscular Volume 89.2 Mean Corpuscular Hemoglobin 30.0 Mean Corpuscular Hemoglobin Concent 33.6 Red Cell Distribution Width 15.6 Platelet Count 247 Mean Platelet Volume 7.6 Blood Urea Nitrogen 14 Creatinine 1.28 Random Glucose 144 Calcium Level 7.5 Sodium Level 137 Chloride Level 104 Carbon Dioxide Level 23.3 Anion Gap 10 Estimat Glomerular Filtration Rate 41 Date/Time Source Procedure Growth Status 04/03/17 08:55 Blood Peripheral Aerobic Blood Culture - Preliminary NO GROWTH IN 2 DAYS Resulted 04/03/17 08:55 Blood Peripheral Anaerobic Blood Culture - Preliminary NO GROWTH IN 2 DAYS Resulted 04/03/17 09:54 Urine Catheterized Urine Streptococcus pneumoniae Antigen (M - Final PRESUMPTIVE NEGATIVE FOR STREPTOCOCCU... Complete John Martinez PhD Apr 06, 2017 08:47
[2017-04-06] MEDS ORDERED: FOSPHENYTOIN INJ 300 MGPE in SODIUM CHLORIDE 0.9% INJ 50 ML IV ONE (09:15)
[2017-04-06] MEDS: ACYCLOVIR INJ 700 MG in SODIUM CHLORIDE 0.9% INJ 100 ML IV SCH ×2 (10:29→22:43)
[2017-04-06] MEDS: cefTRIAXone INJ 2,000 MG in SODIUM CHLORIDE 0.9% INJ 100 ML IV SCH ×2 (10:31→22:09)
--- NOTE | 2017-04-06 13:41 | MG ---
cc: CALOS RUIZ M.D. Lab No: [id number] Date: 04/06/2017 Age: 76 Sex: F Race: ___ DATE OF [address] Martinez TECHNIQUE In room 525 with photic stimulation on 7 mg per hour of Versed, 100 mcg of Fentanyl intubated. CT negative. Last EEG showed persistent epileptic bilateral events together with mental status changes. MEDICATIONS 1. Cerebyx 2. Acyclovir 3. Vimpat 4. Lopressor 5. Ceftriaxone DESCRIPTION OF RECORD There is overall diffuse background from predominately of delta frequency. There is still some occasional spike and slow waves seen bilaterally with some occasional sharps, not as frequent as in previous studies, but still persistently seen. IMPRESSION Abnormal EEG due to bilateral spike and wave discharges still seen in a periodic fashion suggestive of possible ongoing epileptic events. Clinical correlation. MD WARREN Yates/STAN /1:12 PM /1:21 PM
--- NOTE | 2017-04-06 16:43 | HHI.CCPN ---
Subjective Remarks/Hospital Course This is a 76-year-old female that presented to the ED for evaluation of altered mental status. Per report, according to EMS the patient normally is more alert and has a history of stroke, he was able to speak with the patient's sister who states that she is also power of field support rep, the patient apparently normally is ambulatory and can carry on a conversation without any difficulty. Per records reviewed, the patient was last seen normal and at her baseline at 1 am. The patient then sat down in her lazy chair, her sister also noted that she started beating her head against a piece of furniture. The patient was noted to have a right frontal contusion upon presentation to the ED .She had a GCS of 7-8 on arrival. The patient's medical history is significant for a recent admission 12/2016 for altered mental status, medication induced. Her past medical history is also significant for a recent history of UTI and C. difficile in addition to her history of having a CVA and reportedly residual effects in the right upper and lower extremity. Laboratory and imaging studies revealed that most likely the patient has a UTI, CT of the brain revealed no abnormality and the patient was noted to have an elevated lactate level. The patient was emergently intubated in the ED, and the patient was noted to be significantly hypertensive and a nicardipine infusion was instituted. Upon entering the ED the patient's blood pressure was noted to be 219/92, Cardizem infusion had been ordered. The patient was noted to have spontaneous movement of the right upper and lower extremity with a gag reflex. Critical care medicine was consulted. 04/04: The patient was weaned off of nicardipine infusion. Normotensive the patient continues on labetalol twice a day scheduled home dosing. EEG attempted last evening however due to patient's movement bilaterally to complete artifact EEG reordered. Fentanyl infusion discontinued for daily sedation vacation approximately 7 hours ago the patient remains nonresponsive. Opens eyes spontaneously, moves limbs spontaneously but does not follow any commands. Brain MRI/MRA, and CT all negative findings. EEG scheduled for a.m.. The patient continues in severe metabolic acidosis, 2 Amps of sodium bicarbonate IV push given this a.m., sodium bicarbonate infusion increased. Lactate is cleared, creatinine is improving, CT of the abdomen and pelvis is pending this afternoon. 04/05 CT report from yesterday shows bladder edema consistent with cystitis. URine culture with GNR Blood cultures NGTD. . Getting EEG now. Subjective 04/06: Objective Vital Signs Date Time Temp Pulse Resp B/P (MAP) Pulse Ox O2 Delivery O2 Flow Rate FiO2 04/06/17 16:00 35 04/06/17 16:00 105 04/06/17 16:00 99.5 19 138/63 (88) 98 04/03/17 11:24 Ventilator Intake and Output 04/06/17 04/06/17 04/07/17 08:00 16:00 00:00 Intake Total 1496 ml Output Total 1000 ml Balance 496 ml Result Diagram: 04/06/17 0739 04/06/17 0739 Other Results Microbiology Date/Time Source Procedure Growth Status 04/03/17 08:55 Blood Peripheral Aerobic Blood Culture - Preliminary NO GROWTH IN 3 DAYS Resulted 04/03/17 08:55 Blood Peripheral Anaerobic Blood Culture - Preliminary NO GROWTH IN 3 DAYS Resulted 04/03/17 09:54 Urine Catheterized Urine Streptococcus pneumoniae Antigen (M - Final PRESUMPTIVE NEGATIVE FOR STREPTOCOCCU... Complete Imaging Last Impressions Chest X-Ray 04/05/17 0600 Signed Impressions: Service Date/Time: Wednesday, April 05, 2017 03:36 - CONCLUSION: No acute cardiopulmonary disease. K. Willi Dennis MD Abdomen/Pelvis CT 04/04/17 0000 Signed Impressions: Service Date/Time: Tuesday, April 04, 2017 16:05 - CONCLUSION: 1. Mild edema surrounding the urinary bladder, question cystitis. Moore catheter in place. 2. Status post cholecystectomy. 3. Left lower lobe atelectasis. 4. Nasogastric tube tip at the gastroesophageal junction. Kd Doty MD Neck Magnetic Resonance Angiography 04/03/17 1119 Signed Impressions: Service Date/Time: Monday, April 03, 2017 13:11 - CONCLUSION: Negative for hemodynamically significant carotid stenosis Roque Tripathi MD FACR Head Magnetic Resonance Angiography 04/03/171118 Signed Impressions: Service Date/Time: Monday, April 03, 2017 13:11 - CONCLUSION: Negative for major branch vessel occlusion. Roque Tripathi MD FACR Brain MRI 04/03/171118 Signed Impressions: Service Date/Time: Monday, April 03, 2017 13:11 - CONCLUSION: Marked periventricular white matter changes Central and cortical atrophy Negative for ischemia. Roque Tripathi MD FACR Head CT 04/03/17 0851 Signed Impressions: Service Date/Time: Monday, April 03, 2017 09:02 - CONCLUSION: Negative for acute process.. Roque Tripathi MD FACR Cervical Spine CT 04/03/17 0000 Signed Impressions: Service Date/Time: Monday, April 03, 2017 09:07 - CONCLUSION: Fusion as above, negative for fracture. Roque Tripathi MD FACR Objective Remarks GENERAL: 76-year-old female currently orotracheally intubated SKIN: Warm and dry. HEAD: Atraumatic. Normocephalic. Currently wrapped in Kerlix with EEG probes in place EYES: R periorbital ecchmosis. Pupils equal and round 1 mm bilaterally. No scleral icterus. No injection or drainage. ENT: No nasal bleeding or discharge. Mucous membranes pink and moist. NECK: Trachea midline. No JVD. CARDIOVASCULAR: RRR. S1, S2 withoutmurmur RESPIRATORY: No accessory muscle use. Clear to auscultation. Breath sounds equal bilaterally. GASTROINTESTINAL: Abdomen soft, non-tender, nondistended. No guarding. MUSCULOSKELETAL: Right upper extremity with 2+ edema. NEUROLOGICAL: Eyes flutter open, does not make eye contact or track. Eyes upward and rollback All extremities rigid with tonic clonic activity. 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 Date of Insertion: Apr 03, 2017 A/P Assessment and Plan Neuro/Psych Post polio syndrome bilateral lower extremity weakness Status epilepticus History of CVATIA with R sided deficits H/O seizures Anxiety/depression EEG with ongoing seizure activity [id number] twice a day will be continued. Loaded with fosphenytoin - currently in the 100 mg IV every 6 hours. Placed on continuous EEG titrating midazolam drip currently at 7 mg an hour will spikes Fentanyl as needed for now the sedation. Patient does have history of chronic pain TSH normal-3.0 Random cortisol level only 3.5. Unclear significance as patient had lactic acidemia but also hypertensive at the time. Recheck 04/07 Ammonia level - 41 04/03 MRI brain-Moderate periventricular white matter changes are evident. There is no restricted diffusion. There is moderate atrophy with dilatation of ventricular sulcal spaces. There are no extra-axial fluid collections appreciated. Posterior fossa is unremarkable. 04/03 MRA brain-negative for major branch occlusion 04/03 CT brain-no acute intracranial process patient's home meds baclofen 10 mg 3 times a day, tramadol and sertraline 50 mg twice a day have been on hold due to concern for serotonin syndrome and rhabdomyolysis. Patient has history of altered mental status secondary to being medication induced. Reported by family member -the patient had discontinued baclofen for approximately 3 months and took her initial dose of baclofen on 04/02 with a TID schedule dosing. Neurology seeing, Dr. Martinez. Lumbar puncture ordered 04/07. Clopidogrel on hold since admission. Received last 04/03 empirically on vancomycin, ceftriaxone 2 g every 12 hours, acyclovir 700 mg every 12 hours. Respiratory: Acute hypoxemic respiratory failure [facility] 16/500/04/15/34 Ventilator bundle Maintain O2 sat greater than 92% Albuterol/ipratropium aerosols nebs every 6 hours scheduled, albuterol aerosols every 2 hours when necessary Spontaneous breathing trials when clinically indicated Chest x-ray in a.m. 04/07 Cardiovascular: Hypertensive emergency-resolved History of hypertension Hyperlipidemia Congestive heart failure - ejection fraction 5560% 2009 Labetalol, hydralazine IV , PRN to maintain SBP <160 Serial troponins were negative. Continue metoprolol 25 mg every 6 hours and 50 mg sustained release daily at home Holding clopidogrel 75 mg by mouth daily/home medication Continue pravastatin 40 mg by mouth daily/home medication for dyslipidemia Renal/: Chronic kidney disease stage IIIB Maintain Moore catheter -- Strict I/Os Monitor urine output Monitor BMP Replete electrolytes as needed Previous Creatinine 12/2016- 1.15, upon admission 2.76, now downtrending creatinine 1.3 Creatinine kinase 885 on 04/03, downtrendng. Maintain OGT - Start Glucerna with goal rate 45 ml/hr and followup nutrition recs. Continue pravastatin 40 mg daily at bedtime Now alkalosis and hypokalemia on bicarb drip. Will d/c. LR 84 ml/hr. GI: Esophageal stricture -history of esophageal dilatation GERD Elevated ammonia Zofran for nausea currently on Glucerna 1.5 goal 50 cc per hour per nutrition's recommendations Lansoprazole 30 mg daily GI prophylaxis. On Dexlansoprazole 60 mg times daily at home Docusate sodium/senna 1 tablet twice a day for bowel regimen Lactulose 30 cc daily. Recheck in a.m. ID: Escherichia coli UTI Monitor CBC Blood cultures 04/03 - negative Urine culture 04/03 - Escherichia coli, pansensitive Strep pneumococcal antigen 04/03 - negative Recent history of C. difficile colitis. Lactinex tid. Acyclovir initiated by Dr. Martinez. Use ceftriaxone/vancomycin for meningitis coverage pending LP results. HEME/ONC: History of cervical cancer Normocytic anemia History of right lower extremity DVT - posterior tibial and femoral vein previously on Apixaban Patient normally on clopidogrel hold since 04/03 for now (await CT abd and pelvis) Lactate level 1.8 Recheck Dopplers bilateral lower extremities today Endocrine: Diabetes mellitus Low cortisol Glucose monitoring per ICU protocol, low dose regimen Novulog every 6 hours Hold metformin thousand milligrams twice a day Check cortisol AM. Possible cosyntropin test in a.m. it's remains low Prophylaxis: GI Prophylaxis Lansoprazole 30 mg daily DVT Prophylaxis -- SCDs holding pharmacological prophylaxis with likely lumbar puncture in a.m. Lines: Peripheral IVs providing adequate access. Level II follow-up Agapito Leon MD Apr 06, 2017 16:43
[2017-04-06] MEDS ORDERED: LACTULOSE SYRUP 20 GM/30 ML CUP PO ONE (17:15)
[2017-04-06] MEDS: PRAVASTATIN SOD 40 MG TAB PO SCH (20:01)
[2017-04-06] MEDS: fentaNYL DRIP 250 ML IV PRN (22:02)
--- NOTE | 2017-04-06 22:29 | RADRPT ---
EXAM DATE/TIME: 04/06/2017 21:12 [facility] COMPARISON: No previous studies available for comparison. INDICATIONS : Bilateral leg swelling. MEDICAL HISTORY : Gastroesophageal reflux disease. Hypercholesterolemia. Hypertension. Cataracts. Cerebrovascular accid ent. Seizures. Head trauma. Anticoagulant therapy. Arthritis. Osteoporosis. Cervical cancer. Esophage al strictures. Incontinence. Diabetes. Depression. Anxiety. Anemia. Cdiff. SURGICAL HISTORY : Appendectomy.Cholecystectomy. Hysterectomy.Cervical spine surgery. Cervical conization. Right knee rock rgery. Right foot surgery. Laproscopic laureano. Right ankle fracture. ENCOUNTER: Initial ACUITY: 1 day PAIN SCORE: Non-responsive LOCATION: Bilateral legs. TECHNIQUE: Venous ultrasound of the left and right leg was performed from the inguinal ligament to the proximal calf. Real-time, color Doppler and spectral tracing, compression and augmentation techniques were us ed. FINDINGS: RIGHT LEG: There is normal compressibility of the deep venous system from the inguinal region to the proximal ca lf. No echogenic clot is seen in the lumen of the common femoral, femoral, popliteal, and posterior tibial veins. There is a normal response of the venous system to proximal and distal augmentation an d respiration. LEFT LEG: There is normal compressibility of the deep venous system from the inguinal region to the proximal ca lf. No echogenic clot is seen in the lumen of the common femoral, femoral, popliteal, and posterior tibial veins. There is a normal response of the venous system to proximal and distal augmentation an d respiration. CONCLUSION: 1. No sonographic evidence for lower extremity DVT. Harris Gamboa MD on April 06, 2017 at 22:27 Board Certified Radiologist. This report was verified electronically.
--- NOTE | 2017-04-06 22:29 | RADRPT ---
EXAM DATE/TIME: 04/06/2017 21:32 [facility] COMPARISON: No previous studies available for comparison. INDICATIONS : Right arm swelling. MEDICAL HISTORY : Gastroesophageal reflux disease. Hypercholesterolemia. Hypertension. Cataracts. Cerebrovascular accid ent. Seizures. Head trauma. Anticoagulant therapy. Arthritis. Osteoporosis. Cervical cancer. Esophage al strictures. Incontinence. Diabetes. Depression. Anxiety. Anemia. Cdiff. SURGICAL HISTORY : Cholecystectomy. Appendectomy. Hysterectomy. Cervical spine surgery. Cervical conization. Right knee surgery. Right foot surgery. Laproscopic laureano. Right ankle fracture. ENCOUNTER: Initial ACUITY: 1 day PAIN SCORE: Non-responsive LOCATION: Right arm. FINDINGS: There is spontaneous flow documented in the brachial, basilic, cephalic, axillary, and subclavian vei ns. The vessels are compressible and augmentation response is documented. No filling defects are se en. The flow is phasic with respiration. Direction of flow in the jugular vein is caudal. CONCLUSION: 1. No sonographic evidence for right upper extremity DVT. Harris Gamboa MD on April 06, 2017 at 22:27 Board Certified Radiologist. This report was verified electronically.
[2017-04-07] VITALS (21 sets, daily range): BP systolic 109–146; BP diastolic 55–68; PULSE 92–130; RESP 16–23; TEMP 99–100.3; O2SAT 96–100
[2017-04-07] MEDS: RESP: ALBUTEROL 2.5 MG/IPRATROPIUM 0.5 MG NEB (SCH) INH ×4 (02:55→20:20)
[2017-04-07] MEDS: CHLORHEXIDINE GLUCONATE 2 % 1 PACK (2 CLOTHS) TOP SCH (03:30)
[2017-04-07] MEDS: FOSPHENYTOIN SODIUM 100 MG PE/2 ML VIAL IV SCH ×4 (03:30→21:20)
[2017-04-07] MEDS: LACTATED RINGER'S 1000 ML INJ 1,000 ML IV SCH ×3 (03:30→21:19)
[2017-04-07] MEDS: METOPROLOL TARTRATE 25 MG TAB PO SCH ×4 (05:24→23:41)
[2017-04-07] MEDS: INSULIN ASPART SUPPLEMENTAL SCALE SQ SCH ×4 (05:24→23:42)
--- NOTE | 2017-04-07 06:04 | RADRPT ---
EXAM DATE/TIME: 04/07/2017 04:55 [facility] COMPARISON: CHEST SINGLE AP, April 05, 2017, 3:36. INDICATIONS : Shortness of breath, possible pulmonary disease. MEDICAL HISTORY : Diabetes mellitus type II. Hypertension CVA SURGICAL HISTORY : Fusion, cervical. Cholecystectomy. ENCOUNTER: Subsequent ACUITY: 4 - 6 days PAIN SCORE: Non-responsive. LOCATION: Bilateral chest FINDINGS: ET tube, and NG tube have not changed. slight left lung base atelectasis is seen. Heart and mediastin um are unremarkable for technique. CONCLUSION: Slight left lung base atelectasis. Betty Dennis MD on April 07, 2017 at 6:02 Board Certified Radiologist. This report was verified electronically.
[2017-04-07] MEDS: CHLORHEXIDINE 0.12% (ORAL KIT) 15 ML CUP MT SCH ×2 (08:00→21:21)
--- NOTE | 2017-04-07 08:43 | MG ---
cc: CALOS RUIZ M.D. Lab No: Date: 04/06/2017 Age: 76 Sex: F Race: ___ REFERRING PHYSICIAN Dr. Martinez RESULTS March [id number], TECHNIQUE In room 525 with photic times two. MCV and fentanyl, 7 mg per hour of Versed. This is a repeat study. INDICATIONS The patient is intubated. CT is negative. Admitted with change in mental status, history of stroke. MEDICATIONS Not listed. DESCRIPTION OF RECORD The overall background has slowing predominately of 3-4 Hz. Some higher amplitude waves noted predominantly in the right frontoparietal central regions. EEG does look improved. There is artifact also. There are occasional sharp waves seen more over the right hemisphere now than the left. Some occasional sharp spike and slow waves again seen in the frontal parietal FP to F8, FP to F4, FP1, F7 and FP1 at 3 regions not continuous but paroxysmal. IMPRESSION Abnormal EEG due to some mild to moderate slowing, but also some occasional sharps and spike and slow waves seen, but improved from prior EEG's. Clinical correlation. MD WARREN Yates/STAN /8:04 AM /8:08 AM
[2017-04-07 08:49] LABS: AUTOMATED NEUTROPHIL # 6.8 TH/MM3 (1.8-7.7); BASOPHIL % 0.5 % (0.0-2.0); EOSINOPHIL # 0.3 TH/MM3 (0-0.4); EOSINOPHIL % 2.7 % (0.0-4.0); HEMATOCRIT 26.2 % (35.0-46.0); HEMOGLOBIN 8.4 GM/DL (11.6-15.3); LYMPH % 14.6 % (9.0-44.0); LYMPHOCYTE # 1.4 TH/MM3 (1.0-4.8); MEAN CELL VOLUME 89.2 FL (80.0-100.0); MEAN CORPUSCULAR HEMOGLOBIN 28.7 PG (27.0-34.0); MEAN CORPUSCULAR HGB CONC 32.1 % (32.0-36.0); MEAN PLATELET VOLUME 7.4 FL (7.0-11.0); MONO % 9.5 % (0.0-8.0); MONOCYTE # 0.9 TH/MM3 (0-0.9); NEUT % 72.7 % (16.0-70.0); PLATELET COUNT 246 TH/MM3 (150-450); RED BLOOD COUNT 2.93 MIL/MM3 (4.00-5.30); RED CELL DISTRIBUTION WIDTH 15.6 % (11.6-17.2); WHITE BLOOD COUNT 9.3 TH/MM3 (4.0-11.0)
[2017-04-07] MEDS: LACOSAMIDE 100 MG TAB PO SCH ×2 (08:56→21:20)
[2017-04-07] MEDS: DOCUSATE SODIUM 50 MG/SENNA 8.6 MG TAB PO SCH ×2 (08:56→21:19)
[2017-04-07] MEDS: ARTIFICIAL TEARS OPTH SOLN 15 ML BTL EACH EYE SCH ×3 (08:57→17:19)
[2017-04-07] MEDS: LACTOBACILLUS ACIDOPHILUS 1 GM PACKET OG-TUBE SCH ×3 (08:57→17:19)
[2017-04-07] MEDS: LANSOPRAZOLE SOLUTAB 30 MG TAB NG SCH (08:57)
[2017-04-07] MEDS: SODIUM CHLORIDE 0.9% FLUSH 10 ML FLUSH IV FLUSH SCH ×2 (09:00→21:20)
[2017-04-07] MEDS ORDERED: LACTULOSE SYRUP 20 GM/30 ML CUP PO SCH (09:00)
[2017-04-07 09:07] LABS: ALKALINE PHOSPHATASE 85 U/L (45-117); ALT (GPT) 10 U/L (10-53); AMYLASE 50 U/L (25-115); AST (GOT) 17 U/L (15-37); BICARBONATE 19.5 MEQ/L (21.0-32.0); BLOOD UREA NITROGEN 15 MG/DL (7-18); CALCIUM 7.7 MG/DL (8.5-10.1); CHLORIDE 107 MEQ/L (98-107); GLOMERULAR FILTRATION RATE 48 ML/MIN (>89); GLUCOSE,RANDOM 110 MG/DL (74-106); LIPASE 110 U/L (73-393); MAGNESIUM 1.5 MG/DL (1.5-2.5); PHOSPHORUS 2.6 MG/DL (2.5-4.9); SODIUM (NA) 137 MEQ/L (136-145); TOTAL BILIRUBIN ADULT 0.2 MG/DL (0.2-1.0)
[2017-04-07] MEDS: MIDAZOLAM 100 MG/100 ML INJ 100 ML IV PRN ×2 (09:12→23:41)
--- NOTE | 2017-04-07 09:22 | HHI.PR ---
Review/Management Diagnosis Sz on EEG---subclinical--improved. Mainly right hemisphere sharp activity--- improved on versed and phosphenytoin. Plan Although EEG improved, is still some low amplitude sharp activity over right hemisphere. Therefore, will add keppra 500 mg iv Q6 hr follow up LP results today. I would like to repeat MRI to r/o right hemisphere lesion given the focality of the eeg. Diagnosis/Plan: Subjective Subjective Comments No acute events reported No sz activity noted over night Active Medications Current Medications Medications (Trade) Dose Ordered Sig/Georgie Route Start Time Stop Time Status Last Admin Fentanyl Citrate 250 ml @ 5 mls/hr TITRATE PRN IV 04/03/17 09:45 04/06/17 22:02 (NS Flush) 2 ml UNSCH PRN IV FLUSH 04/03/17 11:15 (NS Flush) 2 ml BID IV FLUSH 04/03/17 21:00 04/06/17 20:01 (Tears Naturale Opth Soln) 1 drop TID EACH EYE 04/03/17 13:00 04/07/17 08:57 Miscellaneous Information 1 Q361D XX 04/03/17 11:15 04/03/17 11:15 (Chlorhexidine 2% Cloth) 3 pack Taper DAILY@04 TOP 04/04/17 04:00 03/31/18 03:59 04/07/17 03:30 (Chlorhexidine 2% Cloth) 3 pack UNSCH PRN TOP 04/03/17 11:15 (Jenn-Colace) 1 tab BID PO 04/03/17 21:00 04/07/17 08:56 (Milk Of Magnesia Liq) 30 ml Q12H PRN PO 04/03/17 11:15 (Senokot) 17.2 mg Q12H PRN PO 04/03/17 11:15 (Dulcolax Supp) 10 mg DAILY PRN RECTAL 04/03/17 11:15 (Lactulose Liq) 30 ml DAILY PRN PO 04/03/17 11:15 (Peridex 0.12% Liq) 15 ml BID@08,20 MT 04/03/17 20:00 04/06/17 20:01 (D50w (Vial) Inj) 50 ml UNSCH PRN IV PUSH 04/03/17 11:30 (Glucagon Inj) 1 mg UNSCH PRN OTHER 04/03/17 11:30 (Vimpat) 100 mg BID PO 04/03/17 14:15 04/07/17 08:56 (Pravachol) 40 mg HS PO 04/03/17 21:00 04/06/17 20:01 (Trandate Inj) 10 mg Q4H PRN IV PUSH 04/03/17 14:30 (Apresoline Inj) 20 mg Q4H PRN IV PUSH 04/03/17 14:30 (Lopressor) 25 mg Q6HR PO 04/03/17 21:00 04/07/17 05:24 Sodium Bicarbonate 150 meq/Dextrose 1,000 ml @ 150 mls/hr Q6H40M IV 04/04/17 15:00 Future Hold 04/05/17 04:11 Potassium Chloride 100 ml @ 50 mls/hr Q2H PRN IV 04/05/17 09:15 Potassium Chloride 100 ml @ 50 mls/hr Q2H PRN IV 04/05/17 09:15 04/05/17 15:57 (K-Lyte Cl Eff) 50 meq UNSCH PRN PO 04/05/17 09:15 Potassium Chloride 100 ml @ 25 mls/hr UNSCH PRN IV 04/05/17 09:15 Potassium Chloride 100 ml @ 50 mls/hr Q2H PRN IV 04/05/17 09:15 Magnesium Sulfate 4 gm/Sodium Chloride 100 ml @ 50 mls/hr UNSCH PRN IV 04/05/17 09:15 (Mag-Ox) 800 mg UNSCH PRN PO 04/05/17 09:15 Magnesium Sulfate 2 gm/Sodium Chloride 100 ml @ 50 mls/hr UNSCH PRN IV 04/05/17 09:15 (K-Phos) 2,000 mg Q4H PRN PO 04/05/17 09:15 Sodium Phosphate 30 mmol/Sodium Chloride 250 ml @ 42 mls/hr UNSCH PRN IV 04/05/17 09:15 (K-Phos) 2,000 mg UNSCH PRN PO/TUBE 04/05/17 09:15 Potassium Phosphate 30 mmol/ Sodium Chloride 260 ml @ 42 mls/hr UNSCH PRN IV 04/05/17 09:15 Acyclovir Sodium 700 mg/Sodium Chloride 100 ml @ 100 mls/hr Q12H IV 04/05/17 11:00 04/06/17 22:43 Ceftriaxone Sodium 2000 mg/ Sodium Chloride 100 ml @ 200 mls/hr Q12H IV 04/05/17 11:00 04/06/17 22:09 (Lactinex Pkt) 1 gm TID OG-TUBE 04/05/17 13:00 04/07/17 08:57 (Ativan Inj) 2 mg Q5M PRN IV PUSH 04/05/17 10:45 04/05/17 14:18 Lactated Ringer's 1,000 ml @ 100 mls/hr Q10H IV 04/05/17 10:45 04/07/17 03:30 Midazolam HCl 100 ml @ 2 mls/hr TITRATE PRN IV 04/05/17 11:15 04/07/17 09:12 (Cerebyx Inj) 100 mgpe Q6H IV 04/06/17 15:00 04/07/17 08:52 (Duoneb Neb) 1 ampule Q6HR NEB INH 04/06/17 22:00 04/07/17 08:24 (Tylenol 650 Mg/ 20 ml Liq) 650 mg Q6H PRN NG 04/06/17 17:00 (NovoLOG SUPPLEMENTAL SCALE) 1 Q6HR SQ 04/06/17 18:00 (Albuterol Neb) 2.5 mg Q2HR NEB PRN NEB 04/06/17 17:00 (Prevacid Odt) 30 mg DAILY NG 04/07/17 09:00 04/07/17 08:57 (Lactulose Liq) 30 ml DAILY PO 04/07/17 09:00 04/07/17 08:56 Allergies Allergies Coded Allergies Influenza Virus Vaccines (Unverified Allergy, Intermediate, 02/04/17) egg (Unverified Allergy, Intermediate, 02/04/17) codeine (Unverified Allergy, Mild, 02/04/17) meperidine (Unverified Allergy, Mild, 02/04/17) morphine (Unverified Allergy, Mild, 02/04/17) acetaminophen (Unverified Adverse Reaction, Mild, HEADACHE, 02/04/17) hydrocodone (Unverified Adverse Reaction, Mild, HEADACHE, 02/04/17) Exam I&O / VS Vital Signs Date Time Temp Pulse Resp B/P (MAP) Pulse Ox O2 Delivery O2 Flow Rate FiO2 04/07/17 08:20 100 30 04/07/17 06:00 112 04/07/17 04:20 96 30 04/07/17 04:00 109 04/07/17 04:00 99.8 109 23 146/62 (90) 96 04/07/17 04:00 30 04/07/17 02:00 100 04/07/17 00:20 100 35 04/07/17 00:00 109 04/07/17 00:00 35 04/07/17 00:00 99.9 109 22 127/61 (83) 100 04/06/17 22:00 107 04/06/17 20:16 100 35 04/06/17 20:00 100.0 96 20 132/62 (85) 100 04/06/17 20:00 35 04/06/17 20:00 96 04/06/17 18:00 98 04/06/17 16:00 35 04/06/17 16:00 105 04/06/17 16:00 99.5 105 19 138/63 (88) 98 04/06/17 15:40 100 35 04/06/17 14:00 93 04/06/17 12:32 100 35 04/06/17 12:00 99.6 94 14 159/71 (100) 98 04/06/17 12:00 35 04/06/17 10:00 91 Exam Comments sedated, nonresponsive CN--Pupils 1 mm symmetric and reactive. EOM intact to Dolls maneuver MOTOR--no focal sx. No clinical tonic clonic activity Objective Micro and Labs Laboratory Tests Test 04/06/17 12:55 04/07/17 08:25 Phenytoin (Dilantin) Level 14.0 White Blood Count 9.3 Red Blood Count 2.93 Hemoglobin 8.4 Hematocrit 26.2 Mean Corpuscular Volume 89.2 Mean Corpuscular Hemoglobin 28.7 Mean Corpuscular Hemoglobin Concent 32.1 Red Cell Distribution Width 15.6 Platelet Count 246 Mean Platelet Volume 7.4 Neutrophils (%) (Auto) 72.7 Lymphocytes (%) (Auto) 14.6 Monocytes (%) (Auto) 9.5 Eosinophils (%) (Auto) 2.7 Basophils (%) (Auto) 0.5 Neutrophils # (Auto) 6.8 Lymphocytes # (Auto) 1.4 Monocytes # (Auto) 0.9 Eosinophils # (Auto) 0.3 Basophils # (Auto) 0.0 CBC Comment DIFF FINAL Differential Comment Blood Urea Nitrogen 15 Creatinine 1.10 Random Glucose 110 Total Protein 6.0 Albumin 2.0 Calcium Level 7.7 Phosphorus Level 2.6 Magnesium Level 1.5 Alkaline Phosphatase 85 Aspartate Amino Transf (AST/SGOT) 17 Alanine Aminotransferase (ALT/SGPT) 10 Total Bilirubin 0.2 Sodium Level 137 Potassium Level 4.2 Chloride Level 107 Carbon Dioxide Level 19.5 Anion Gap 11 Estimat Glomerular Filtration Rate 48 Lactic Acid Level 1.3 Ammonia 12 Total Creatine Kinase 282 Amylase Level 50 Lipase 110 Thyroid Stimulating Hormone 3rd Gen 1.040 Date/Time Source Procedure Growth Status 04/03/17 08:55 Blood Peripheral Aerobic Blood Culture - Preliminary NO GROWTH IN 3 DAYS Resulted 04/03/17 08:55 Blood Peripheral Anaerobic Blood Culture - Preliminary NO GROWTH IN 3 DAYS Resulted 04/03/17 09:54 Urine Catheterized Urine Streptococcus pneumoniae Antigen (M - Final PRESUMPTIVE NEGATIVE FOR STREPTOCOCCU... Complete Diagnostic Tests EEG this am shows diffuse slowing. There is low amplitude periodic sharp activity over the right hemisphere. It is significantly improved from prior EEG John Martinez MD PhD Apr 07, 2017 09:22
[2017-04-07] MEDS ORDERED: FUROSEMIDE 20 MG/2 ML VIAL IV PUSH ONE (09:30)
--- NOTE | 2017-04-07 09:31 | HHI.CCPN ---
Subjective Remarks/Hospital Course This is a 76-year-old female that presented to the ED for evaluation of altered mental status. Per report, according to EMS the patient normally is more alert and has a history of stroke, he was able to speak with the patient's sister who states that she is also power of [place] attorney, the patient apparently normally is ambulatory and can carry on a conversation without any difficulty. Per records reviewed, the patient was last seen normal and at her baseline at 1 am. The patient then sat down in her lazy chair, her sister also noted that she started beating her head against a piece of furniture. The patient was noted to have a right frontal contusion upon presentation to the ED .She had a GCS of 7-8 on arrival. The patient's medical history is significant for a recent admission 12/2016 for altered mental status, medication induced. Her past medical history is also significant for a recent history of UTI and C. difficile in addition to her history of having a CVA and reportedly residual effects in the right upper and lower extremity. Laboratory and imaging studies revealed that most likely the patient has a UTI, CT of the brain revealed no abnormality and the patient was noted to have an elevated lactate level. The patient was emergently intubated in the ED, and the patient was noted to be significantly hypertensive and a nicardipine infusion was instituted. Upon entering the ED the patient's blood pressure was noted to be 219/92, Cardizem infusion had been ordered. The patient was noted to have spontaneous movement of the right upper and lower extremity with a gag reflex. Critical care medicine was consulted. 04/04: The patient was weaned off of nicardipine infusion. Normotensive the patient continues on labetalol twice a day scheduled home dosing. EEG attempted last evening however due to patient's movement bilaterally to complete artifact EEG reordered. Fentanyl infusion discontinued for daily sedation vacation approximately 7 hours ago the patient remains nonresponsive. Opens eyes spontaneously, moves limbs spontaneously but does not follow any commands. Brain MRI/MRA, and CT all negative findings. EEG scheduled for a.m.. The patient continues in severe metabolic acidosis, 2 Amps of sodium bicarbonate IV push given this a.m., sodium bicarbonate infusion increased. Lactate is cleared, creatinine is improving, CT of the abdomen and pelvis is pending this afternoon. 04/05 CT report from yesterday shows bladder edema consistent with cystitis. URine culture with GNR Blood cultures NGTD. . Getting EEG now. 04/06: Resting comfortable in bed in no acute distress. No obvious seizure activity. Plan for lumbar puncture in AM. Low-grade temperatures overnight. Tolerating tube feeding at goal. No bowel movement Subjective 04/07: Continues EEG has been discontinued. Tmax 100. Currently 99.8. No bowel movement since admission. Tolerating tube feeds at goal. No active seizure activity overnight. Objective Vital Signs Date Time Temp Pulse Resp B/P (MAP) Pulse Ox O2 Delivery O2 Flow Rate FiO2 04/07/17 08:20 100 30 04/07/17 06:00 112 04/07/17 04:00 99.8 23 146/62 (90) 04/03/17 11:24 Ventilator Intake and Output 04/07/17 04/07/17 04/08/17 08:00 16:00 00:00 Intake Total 1518 ml Output Total 1200 ml Balance 318 ml Result Diagram: 04/07/17 0825 04/07/17 0825 Other Results Microbiology Date/Time Source Procedure Growth Status 04/03/17 08:55 Blood Peripheral Aerobic Blood Culture - Preliminary NO GROWTH IN 3 DAYS Resulted 04/03/17 08:55 Blood Peripheral Anaerobic Blood Culture - Preliminary NO GROWTH IN 3 DAYS Resulted 04/03/17 09:54 Urine Catheterized Urine Streptococcus pneumoniae Antigen (M - Final PRESUMPTIVE NEGATIVE FOR STREPTOCOCCU... Complete Imaging Last Impressions Chest X-Ray 04/07/17 0600 Signed Impressions: Service Date/Time: March 04:55 - CONCLUSION: Slight left lung base atelectasis. K. Willi Dennis MD Upper Extremity Ultrasound 04/06/17 0000 Signed Impressions: Service Date/Time: Thursday, April 06, 2017 21:32 - CONCLUSION: 1. No sonographic evidence for right upper extremity DVT. Harris Gamboa MD Lower Extremity Ultrasound 04/06/17 0000 Signed Impressions: Service Date/Time: Thursday, April 06, 2017 21:12 - CONCLUSION: 1. No sonographic evidence for lower extremity DVT. Harris Gamboa MD Abdomen/Pelvis CT 04/04/17 0000 Signed Impressions: Service Date/Time: Tuesday, April 04, 2017 16:05 - CONCLUSION: 1. Mild edema surrounding the urinary bladder, question cystitis. Moore catheter in place. 2. Status post cholecystectomy. 3. Left lower lobe atelectasis. 4. Nasogastric tube tip at the gastroesophageal junction. Kd Doty MD Neck Magnetic Resonance Angiography 04/03/17 1119 Signed Impressions: Service Date/Time: Monday, April 03, 2017 13:11 - CONCLUSION: Negative for hemodynamically significant carotid stenosis Roque Tripathi MD FACR Head Magnetic Resonance Angiography 04/03/17 1119 Signed Impressions: Service Date/Time: Monday, April 03, 2017 13:11 - CONCLUSION: Negative for major branch vessel occlusion. Roque Tripathi MD FACR Brain MRI 04/03/17 1119 Signed Impressions: Service Date/Time: Monday, April 03, 2017 13:11 - CONCLUSION: Marked periventricular white matter changes Central and cortical atrophy Negative for ischemia. Roque Tripathi MD FACR Head CT 04/03/17 0851 Signed Impressions: Service Date/Time: Monday, April 03, 2017 09:02 - CONCLUSION: Negative for acute process.. Roque Tripathi MD FACR Cervical Spine CT 04/03/17 0000 Signed Impressions: Service Date/Time: Monday, April 03, 2017 09:07 - CONCLUSION: Fusion as above, negative for fracture. Roque Tripathi MD FACR Objective Remarks GENERAL: 76-year-old female currently orotracheally intubated SKIN: Warm and dry. HEAD: Atraumatic. Normocephalic. Currently wrapped in Kerlix with EEG probes in place EYES: R periorbital ecchmosis. Pupils equal and round 1 mm bilaterally. No scleral icterus. No injection or drainage. ENT: No nasal bleeding or discharge. Mucous membranes pink and moist. NECK: Trachea midline. No JVD. CARDIOVASCULAR: RRR. S1, S2 withoutmurmur RESPIRATORY: No accessory muscle use. Clear to auscultation. Breath sounds equal bilaterally. GASTROINTESTINAL: Abdomen soft, non-tender, nondistended. No guarding. MUSCULOSKELETAL: Right upper extremity with 2+ edema. NEUROLOGICAL: Eyes flutter open, does not make eye contact or track. Eyes upward and rollback All extremities rigid with tonic clonic activity. 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 Urinary Catheter: Yes Assessment to: Continue Moore insert reason: Prolonged Immobilization Date of Insertion: Apr 03, 2017 Vascular Central Line Catheter: No Assessment to: Continue A/P Assessment and Plan Neuro/Psych Post polio syndrome bilateral lower extremity weakness Status epilepticus History of CVATIA with R sided deficits H/O seizures Anxiety/depression 04/07 interpretation EEG - Abnormal EEG due to some mild to moderate slowing, but also some occasionalsharps and spike and slow waves seen, but improved from prior EEG's. Clinical correlation. [id number] twice a day will be continued. Loaded with fosphenytoin - currently fosphenytoin 100 mg IV every 6 hours. Levetiracetam 500 mg IV every 6 hours Continue midazolam drip currently at 7 mg an hour will spikes Fentanyl as needed for when necessary and she'll sedation. Patient does have history of chronic pain TSH normal-3.0 Random cortisol level only 3.5. Unclear significance as patient had lactic acidemia but also hypertensive at the time. Recheck 04/07 currently pending Ammonia level - 41 04/03 MRI brain-Moderate periventricular white matter changes are evident. There is no restricted diffusion. There is moderate atrophy with dilatation of ventricular sulcal spaces. There are no extra-axial fluid collections appreciated. Posterior fossa is unremarkable. 04/03 MRA brain-negative for major branch occlusion 04/03 CT brain-no acute intracranial process patient's home meds baclofen 10 mg 3 times a day, tramadol and sertraline 50 mg twice a day have been on hold due to concern for serotonin syndrome and rhabdomyolysis. Patient has history of altered mental status secondary to being medication induced. Reported by family member -the patient had discontinued baclofen for approximately 3 months and took her initial dose of baclofen on 04/02 with a TID schedule dosing. Neurology seeing, Dr. Martinez. Lumbar puncture ordered 04/07. Clopidogrel on hold since admission. Received last 04/03 empirically on vancomycin, ceftriaxone 2 g every 12 hours, acyclovir 700 mg every 12 hours. Repeat MRI brain ordered 04/07 Respiratory: Acute hypoxemic respiratory failure PRVC 16/500/1/5/35 Ventilator bundle Maintain O2 sat greater than 92% Albuterol/ipratropium aerosols nebs every 6 hours scheduled, albuterol aerosols every 2 hours when necessary Spontaneous breathing trials when clinically indicated Follow-up chest x-ray 04/08 Cardiovascular: Hypertensive emergency-resolved History of hypertension Hyperlipidemia Congestive heart failure - ejection fraction 55-60% 2009 Labetalol, hydralazine IV , PRN to maintain SBP <160 Serial troponins were negative. Continue metoprolol 25 mg every 6 hours and 50 mg sustained release daily at home Holding clopidogrel 75 mg by mouth daily/home medication for lumbar puncture today. Continue pravastatin 40 mg by mouth daily/home medication for dyslipidemia Renal//FEN: Chronic kidney disease stage IIIB Hypo-magnesium Maintain Moore catheter -- Strict I/Os Monitor urine output Monitor BMP Replete electrolytes as needed Previous Creatinine 12/2016- 1.15, upon admission 2.76, now downtrending creatinine 1.3 Creatinine kinase 885 on 04/03, downtrending. Maintain OGT -continue Glucerna with goal rate 45 ml/hr and followup nutrition recs. Continue pravastatin 40 mg daily at bedtime for dyslipidemia 2 g IV mag sulfate IV times. Mag-Ox 400 twice a day. Recheck magnesium in AM. 1 dose of furosemide 20 mg IV 1 now. GI: Esophageal stricture -history of esophageal dilatation GERD Elevated ammonia Zofran for nausea currently on Glucerna 1.5 goal 50 cc per hour per nutrition's recommendations Lansoprazole 30 mg daily GI prophylaxis. On Dexlansoprazole 60 mg times daily at home Docusate sodium/senna 1 tablet twice a day for bowel regimen. Add polyethylene glycol 17 g twice a day and lactulose 30 cc twice a day Ammonia level Recheck in a.m. 04/07 ID: Escherichia coli UTI Monitor CBC Blood cultures 04/03 - negative Urine culture 04/03 - Escherichia coli, pansensitive Strep pneumococcal antigen 04/03 - negative Recent history of C. difficile colitis. Lactinex tid. Acyclovir initiated by Dr. Martinez. Use ceftriaxone/vancomycin for meningitis coverage pending LP results. HEME/ONC: History of cervical cancer Normocytic anemia History of right lower extremity DVT - posterior tibial and femoral vein previously on Apixaban Patient normally on clopidogrel hold since 04/03 for now (await CT abd and pelvis) Lactate level 1.8 Recheck Dopplers bilateral and right upper lower extremities 04/07 negative for DVT Endocrine: Diabetes mellitus Low cortisol Glucose monitoring per ICU protocol, low dose regimen Novulog every 6 hours Hold metformin thousand milligrams twice a day Check cortisol AM. Possible cosyntropin test in a.m. it's remains low Prophylaxis: GI Prophylaxis Lansoprazole 30 mg daily DVT Prophylaxis -- SCDs holding pharmacological prophylaxis with likely lumbar puncture in a.m. Lines: Peripheral IVs providing adequate access. Level II follow-up Agapito Leon MD Apr 07, 2017 09:31
--- NOTE | 2017-04-07 10:11 | RADRPT ---
EXAM DATE/TIME: 04/07/2017 09:39 [facility] COMPARISON: No previous studies available for comparison. INDICATIONS : Patient presents with altered mental status in need of a lumbar puncture. MEDICAL HISTORY : Anemia Anxiety Depression Cervical CA Hypertension High Cholesterol Diabetes Seizure Disorder HX CVA SURGICAL HISTORY : Appendectomy Cholecystectomy Hysterectomy Cervical CA removed C4 C5 C6 plate placed Laparoscopic Steve ENCOUNTER: Initial ACUITY: 4 -6 days PAIN SCORE: LUMBAR PUNCTURE TIME: 0947 hours FLUORO TIME: 0.2 minutes IMAGE SERIES: 2 ACCESS LEVEL: L4 FLUID: 18 cc of clear CSF was collected and sent to the laboratory for analysis. PROCEDURE : 1. Fluoroscopic guided lumbar puncture. The risks, benefits and alternatives to the procedure were explained and verbal and written consent w as obtained. The site was prepped in sterile fashion. Full sterile technique was used, including ca p, mask, sterile gloves and gown and a large sterile sheet. Hand hygiene and 2% chlorhexidine and/or betadine/alcohol prep was utilized per protocol for cutaneous antisepsis. The skin and subcutaneous tissues were infiltrated with local anesthetic solution. With fluoroscopic guidance the lumbar thecal sac was punctured at the level above. The fluid describ ed above was removed without difficulty. The patient tolerated the procedure well and there were no complications. CONCLUSION: Uncomplicated fluoroscopically guided lumbar puncture. Harris Gamboa MD on April 07, 2017 at 10:09 Board Certified Radiologist. This report was verified electronically.
[2017-04-07] MEDS ORDERED: GADODIAMIDE PF 287 MG/ML 20 ML VIAL (for RAD MRI) IVCONTRAST ONE (10:42)
[2017-04-07 11:06] LABS: TOTAL PROTEIN,CSF 43.1 MG/DL (15.0-45.0)
[2017-04-07] MEDS: cefTRIAXone INJ 2,000 MG in SODIUM CHLORIDE 0.9% INJ 100 ML IV SCH ×2 (11:32→23:16)
[2017-04-07] MEDS: fentaNYL DRIP 250 ML IV PRN ×2 (11:32→21:22)
[2017-04-07 11:36] LABS: SUPERNATE COLOR TUBE #1 CLEAR (CLEAR)
[2017-04-07 11:37] LABS: CSF LYMPHOCYTES 0 %; CSF NEUTROPHILS 0 %; RBC TUBE #4 13 /MM3; WBC TUBE #4 0 /MM3 (0-10)
[2017-04-07] MEDS: ACYCLOVIR INJ 700 MG in SODIUM CHLORIDE 0.9% INJ 100 ML IV SCH ×2 (11:52→22:02)
[2017-04-07] MEDS: MAGNESIUM SULFATE 1 GM PREMIX 100 ML IV SCH ×2 (11:52→12:18)
[2017-04-07] MEDS: levETIRAcetam INJ 500 MG in SODIUM CHLORIDE 0.9% INJ 100 ML IV SCH ×3 (11:52→23:41)
[2017-04-07] MEDS: MAGNESIUM OXIDE 400 MG TAB PO SCH ×2 (12:17→21:20)
--- NOTE | 2017-04-07 12:29 | RADRPT ---
EXAM DATE/TIME: 04/07/2017 10:24 [facility] COMPARISON: No previous studies available for comparison. INDICATIONS : Altered mental status. CONTRAST: 16 cc Omniscan (gadodiamide) IV Lot: [id number] Exp Date: Jun 2019 Lot Exp Date: MEDICAL HISTORY : Hypercholesterolemia. Hypertension. Diabetes mellitus type 2. seizures SURGICAL HISTORY : Fusion, cervical. Cholecystectomy. Hysterectomy. lumbar discectomy ENCOUNTER: Subsequent ACUITY: 4-6 days PAIN SCORE: Nonresponsive. LOCATION: cranial TECHNIQUE: Multiplanar, multisequence MRI of the brain was performed both prior to and following the administrat ion of paramagnetic contrast. FINDINGS: There is mild periventricular white matter T2 prolongation. A tiny lacunar infarct in the right lenti form nucleus appears old. There is no evidence of intracranial mass or hemorrhage. The brainstem and posterior fossa structures are unremarkable. There is nothing to suggest acute infarction. There is f luid in the left maxillary sinus and occasional ethmoid sinuses. CONCLUSION: No acute intracranial findings Kali Jerry MD on April 07, 2017 at 12:26 Board Certified Radiologist. This report was verified electronically.
[2017-04-07] MEDS: PRAVASTATIN SOD 40 MG TAB PO SCH (21:19)
[2017-04-07] MEDS: LACTULOSE SYRUP 20 GM/30 ML CUP PO SCH (21:19)
[2017-04-07] MEDS: POLYETHYLENE GLYCOL 17 GM PKG PO SCH (21:20)
[2017-04-08] VITALS (24 sets, daily range): BP systolic 112–138; BP diastolic 56–71; PULSE 95–116; RESP 17–21; TEMP 99–100.4; O2SAT 99–100
[2017-04-08] MEDS: FOSPHENYTOIN SODIUM 100 MG PE/2 ML VIAL IV SCH ×3 (02:23→15:21)
[2017-04-08] MEDS: CHLORHEXIDINE GLUCONATE 2 % 1 PACK (2 CLOTHS) TOP SCH (03:07)
[2017-04-08] MEDS: ACYCLOVIR INJ 700 MG in SODIUM CHLORIDE 0.9% INJ 100 ML IV SCH ×2 (03:12→12:27)
[2017-04-08] MEDS: RESP: ALBUTEROL 2.5 MG/IPRATROPIUM 0.5 MG NEB (SCH) INH ×4 (04:17→20:36)
[2017-04-08] MEDS: levETIRAcetam INJ 500 MG in SODIUM CHLORIDE 0.9% INJ 100 ML IV SCH ×3 (05:04→18:33)
[2017-04-08] MEDS: METOPROLOL TARTRATE 25 MG TAB PO SCH ×3 (05:04→18:18)
[2017-04-08] MEDS: INSULIN ASPART SUPPLEMENTAL SCALE SQ SCH ×3 (05:05→18:00)
--- NOTE | 2017-04-08 05:51 | RADRPT ---
EXAM DATE/TIME: 04/08/2017 04:41 [facility] COMPARISON: CHEST SINGLE AP, April 07, 2017, 4:55. INDICATIONS : Respiratory failure MEDICAL HISTORY : Diabetes mellitus type II. Hypertension CVA SURGICAL HISTORY : Fusion, cervical. Cholecystectomy. ENCOUNTER: Subsequent ACUITY: 1 week PAIN SCORE: Non-responsive. LOCATION: Bilateral chest FINDINGS: Single AP view of the chest. Endotracheal tube and nasogastric tube remain in place. Mild patchy left lung base opacity unchanged. No evidence of pleural effusion or pneumothorax. Cardiomediastinal silh ouette unchanged. CONCLUSION: No significant interval change. Kd Doty MD on April 08, 2017 at 5:49 Board Certified Radiologist. This report was verified electronically.
[2017-04-08 07:15] LABS: AUTOMATED NEUTROPHIL # 5.7 TH/MM3 (1.8-7.7); BASOPHIL % 0.4 % (0.0-2.0); EOSINOPHIL # 0.3 TH/MM3 (0-0.4); EOSINOPHIL % 4.2 % (0.0-4.0); HEMATOCRIT 24.2 % (35.0-46.0); HEMOGLOBIN 8.1 GM/DL (11.6-15.3); LYMPH % 16.7 % (9.0-44.0); LYMPHOCYTE # 1.4 TH/MM3 (1.0-4.8); MEAN CELL VOLUME 89.5 FL (80.0-100.0); MEAN CORPUSCULAR HEMOGLOBIN 29.8 PG (27.0-34.0); MEAN CORPUSCULAR HGB CONC 33.4 % (32.0-36.0); MONO % 10.8 % (0.0-8.0); MONOCYTE # 0.9 TH/MM3 (0-0.9); NEUT % 67.9 % (16.0-70.0); PLATELET COUNT 238 TH/MM3 (150-450); RED CELL DISTRIBUTION WIDTH 15.3 % (11.6-17.2); WHITE BLOOD COUNT 8.3 TH/MM3 (4.0-11.0)
[2017-04-08 07:22] LABS: ALBUMIN 1.8 GM/DL (3.4-5.0); ALT (GPT) 8 U/L (10-53); AST (GOT) 15 U/L (15-37); BICARBONATE 20.9 MEQ/L (21.0-32.0); BLOOD UREA NITROGEN 14 MG/DL (7-18); CALCIUM 7.7 MG/DL (8.5-10.1); CHLORIDE 108 MEQ/L (98-107); CREATININE 0.96 MG/DL (0.50-1.00); GLOMERULAR FILTRATION RATE 57 ML/MIN (>89); GLUCOSE,RANDOM 105 MG/DL (74-106); MAGNESIUM 1.7 MG/DL (1.5-2.5); SODIUM (NA) 140 MEQ/L (136-145)
[2017-04-08 07:25] LABS: ALKALINE PHOSPHATASE 66 U/L (45-117); PHOSPHORUS 3.3 MG/DL (2.5-4.9); TOTAL BILIRUBIN ADULT 0.2 MG/DL (0.2-1.0); TOTAL PROTEIN 5.3 GM/DL (6.4-8.2)
[2017-04-08] MEDS: fentaNYL DRIP 250 ML IV PRN ×2 (07:44→18:25)
[2017-04-08] MEDS: SODIUM CHLORIDE 0.9% FLUSH 10 ML FLUSH IV FLUSH SCH ×2 (08:59→20:52)
[2017-04-08] MEDS: ARTIFICIAL TEARS OPTH SOLN 15 ML BTL EACH EYE SCH ×3 (08:59→18:20)
[2017-04-08] MEDS: CHLORHEXIDINE 0.12% (ORAL KIT) 15 ML CUP MT SCH ×2 (08:59→20:00)
[2017-04-08] MEDS: LACTULOSE SYRUP 20 GM/30 ML CUP PO SCH ×2 (09:00→18:18)
[2017-04-08] MEDS: LANSOPRAZOLE SOLUTAB 30 MG TAB NG SCH (09:00)
[2017-04-08] MEDS: LACOSAMIDE 100 MG TAB PO SCH ×2 (09:00→20:53)
[2017-04-08] MEDS: POLYETHYLENE GLYCOL 17 GM PKG PO SCH ×2 (09:00→20:53)
[2017-04-08] MEDS: DOCUSATE SODIUM 50 MG/SENNA 8.6 MG TAB PO SCH ×2 (09:00→20:53)
[2017-04-08] MEDS: LACTOBACILLUS ACIDOPHILUS 1 GM PACKET OG-TUBE SCH ×3 (09:00→18:18)
[2017-04-08] MEDS: LACTATED RINGER'S 1000 ML INJ 1,000 ML IV SCH (11:10)
[2017-04-08 11:19] LABS: HSV 1,PCR Negative (Negative)
[2017-04-08] MEDS: cefTRIAXone INJ 2,000 MG in SODIUM CHLORIDE 0.9% INJ 100 ML IV SCH (11:30)
[2017-04-08] MEDS: MIDAZOLAM 100 MG/100 ML INJ 100 ML IV PRN (13:47)
[2017-04-08] MEDS: ACETAMINOPHEN 650 MG/20.3 ML UDC NG PRN (15:50)
[2017-04-08] MEDS ORDERED: MINERAL OIL EMULSION 55% PO ONE (16:45)
[2017-04-08] MEDS ORDERED: FOSPHENYTOIN SODIUM 500 MG PE/10 ML VIAL IV ONE (16:45)
[2017-04-08] MEDS ORDERED: COSYNTROPIN 0.25 MG VIAL IV PUSH ONE (17:00)
[2017-04-08] MEDS ORDERED: FOSPHENYTOIN INJ 500 MGPE in SODIUM CHLORIDE 0.9% INJ 50 ML IV ONE (17:00)
[2017-04-08] MEDS ORDERED: METHYLNALTREXONE BROMIDE 12 MG/0.6 ML VIAL SQ ONE (17:00)
--- NOTE | 2017-04-08 17:00 | HHI.CCPN ---
Subjective Remarks/Hospital Course This is a 76-year-old female that presented to the ED for evaluation of altered mental status. 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 Per records reviewed, the patient was last seen normal and at her baseline at 1 am. The patient then sat down in her lazy chair, her sister also noted that she started beating her head against a piece of furniture. The patient was noted to have a right frontal contusion upon presentation to the ED .She had a GCS of 7-8 on arrival. The patient's medical history is significant for a recent admission 12/2016 for altered mental status, medication induced. Her past medical history is also significant for a recent history of UTI and C. difficile in addition to her history of having a CVA and reportedly residual effects in the right upper and lower extremity. Laboratory and imaging studies revealed that most likely the patient has a UTI, CT of the brain revealed no abnormality and the patient was noted to have an elevated lactate level. The patient was emergently intubated in the ED, and the patient was noted to be significantly hypertensive and a nicardipine infusion was instituted. Upon entering the ED the patient's blood pressure was noted to be 219/92, Cardizem infusion had been ordered. The patient was noted to have spontaneous movement of the right upper and lower extremity with a gag reflex. Critical care medicine was consulted. 04/04: The patient was weaned off of nicardipine infusion. Normotensive the patient continues on labetalol twice a day scheduled home dosing. EEG attempted last evening however due to patient's movement bilaterally to complete artifact EEG reordered. Fentanyl infusion discontinued for daily sedation vacation approximately 7 hours ago the patient remains nonresponsive. Opens eyes spontaneously, moves limbs spontaneously but does not follow any commands. Brain MRI/MRA, and CT all negative findings. EEG scheduled for a.m.. The patient continues in severe metabolic acidosis, 2 Amps of sodium bicarbonate IV push given this a.m., sodium bicarbonate infusion increased. Lactate is cleared, creatinine is improving, CT of the abdomen and pelvis is pending this afternoon. 04/05 CT report from yesterday shows bladder edema consistent with cystitis. URine culture with GNR Blood cultures NGTD. . Getting EEG now. 04/06: Resting comfortable in bed in no acute distress. No obvious seizure activity. Plan for lumbar puncture in AM. Low-grade temperatures overnight. Tolerating tube feeding at goal. No bowel movement 04/07: Continues EEG has been discontinued. Tmax 100. Currently 99.8. No bowel movement since admission. Tolerating tube feeds at goal. No active seizure activity overnight. Subjective 04/08: Tmax 100. Currently 99.9. Became tachycardic with sedation lowered so RN increased midazolam to 9 milligrams an hour. Also fentanyl drip at 250 mcg per hour. No bowel movement since admission. Tolerating tube feedings with only 40 cc residuals. Receiving methylnaltrexone milligrams subcutaneous 1 along with mineral oil and suppository. KUB pending. Patient improved neurological exam. Blinks with my suddenhand movements towards face. Positive gag. Withdraws to pain in all 4 extremity's. Objective Vital Signs Date Time Temp Pulse Resp B/P (MAP) Pulse Ox O2 Delivery O2 Flow Rate FiO2 04/08/17 16:33 99 30 04/08/17 14:00 108 04/08/17 12:00 99.9 17 120/59 (79) Intake and Output 04/08/17 04/08/17 04/09/17 08:00 16:00 00:00 Intake Total 1532.5 ml 848 ml Output Total 1700 ml Balance -167.5 ml 848 ml Result Diagram: 04/08/17 0628 04/08/17 0629 Other Results Microbiology Date/Time Source Procedure Growth Status 04/03/17 08:55 Blood Peripheral Aerobic Blood Culture - Final NO GROWTH IN 5 DAYS Complete 04/03/17 08:55 Blood Peripheral Anaerobic Blood Culture - Final NO GROWTH IN 5 DAYS Complete 04/07/17 09:47 Cerebral Spinal Fluid Lumbar Puncture Fungal Smear - Final NO FUNGAL ELEMENTS SEEN. Resulted 04/07/17 09:47 Cerebral Spinal Fluid Lumbar Puncture Fungal Culture Pending Resulted 04/03/17 09:54 Urine Catheterized Urine Streptococcus pneumoniae Antigen (M - Final PRESUMPTIVE NEGATIVE FOR STREPTOCOCCU... Complete Imaging Last Impressions Chest X-Ray 04/08/17 0600 Signed Impressions: Service Date/Time: Saturday, April 08, 2017 04:41 - CONCLUSION: No significant interval change. Kd Doty MD Lumbar Puncture Fluoroscopy 04/07/17 0000 Signed Impressions: Service Date/Time: March 09:39 - CONCLUSION: Uncomplicated fluoroscopically guided lumbar puncture. Harris Gamboa MD Brain MRI 04/07/17 0000 Signed Impressions: Service Date/Time: March 10:24 - CONCLUSION: No acute intracranial findings Kali Jerry MD Upper Extremity Ultrasound 04/06/17 0000 Signed Impressions: Service Date/Time: Thursday, April 06, 2017 21:32 - CONCLUSION: 1. No sonographic evidence for right upper extremity DVT. Harris Gamboa MD Lower Extremity Ultrasound 04/06/17 0000 Signed Impressions: Service Date/Time: Thursday, April 06, 2017 21:12 - CONCLUSION: 1. No sonographic evidence for lower extremity DVT. Harris Gamboa MD Abdomen/Pelvis CT 04/04/17 0000 Signed Impressions: Service Date/Time: Tuesday, April 04, 2017 16:05 - CONCLUSION: 1. Mild edema surrounding the urinary bladder, question cystitis. Moore catheter in place. 2. Status post cholecystectomy. 3. Left lower lobe atelectasis. 4. Nasogastric tube tip at the gastroesophageal junction. Kd Doty MD Neck Magnetic Resonance Angiography 04/03/17 1119 Signed Impressions: Service Date/Time: Monday, April 03, 2017 13:11 - CONCLUSION: Negative for hemodynamically significant carotid stenosis Roque Tripathi MD FACR Head Magnetic Resonance Angiography 04/03/17 1119 Signed Impressions: Service Date/Time: Monday, April 03, 2017 13:11 - CONCLUSION: Negative for major branch vessel occlusion. Roque Tripathi MD FACR Head CT 04/03/17 0851 Signed Impressions: Service Date/Time: Monday, April 03, 2017 09:02 - CONCLUSION: Negative for acute process.. Roque Tripathi MD FACR Cervical Spine CT 04/03/17 0000 Signed Impressions: Service Date/Time: Monday, April 03, 2017 09:07 - CONCLUSION: Fusion as above, negative for fracture. Roque Tripathi MD FACR Objective Remarks GENERAL: 76-year-old female currently orotracheally intubated SKIN: Warm and dry. HEAD: Atraumatic. Normocephalic. EYES: R periorbital ecchmosis. Pupils equal and round 1-2 mm bilaterally. No scleral icterus. No injection or drainage. ENT: No nasal bleeding or discharge. Mucous membranes pink and moist. NECK: Trachea midline. No JVD. CARDIOVASCULAR: RRR. S1, S2 withoutmurmur RESPIRATORY: No accessory muscle use. Clear to auscultation. Breath sounds equal bilaterally. GASTROINTESTINAL: Abdomen soft, non-tender, nondistended. No guarding. MUSCULOSKELETAL: Right upper extremity with 2+ edema and erythema. Negative Doppler ultrasound 04/06 for DVT NEUROLOGICAL: Cranial nerves II through XII appear grossly intact. Eyes open with voice. Does not track. Positive gag. Positive corneal reflex. Positive response to fright. Withdraws to pain in all 4 extremities currently. 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 Date of Insertion: Apr 03, 2017 A/P Assessment and Plan Neuro/Psych Post polio syndrome bilateral lower extremity weakness Status epilepticus History of CVATIA with R sided deficits - right lentiform nucleus H/O seizures Anxiety/depression Left maxillary/ethmoid fluid levels question sinusitis 04/07 interpretation EEG - Abnormal EEG due to some mild to moderate slowing, but also some occasional sharps and spike and slow waves seen, but improved from prior EEG's. Clinical correlation. [id number] milligrams twice a day will be continued. Loaded with fosphenytoin - currently fosphenytoin 100 mg IV every 6 hours. Given additional 500 mg IV 1 today Levetiracetam 500 mg IV every 6 hours Lorazepam 2 mg IV every 5 minutes as needed. Seizures Continue midazolam drip currently at 9 mg an hour will spikes Fentanyl drip currently at 250 mcg an hour. Patient does have history of chronic pain TSH normal-3.0 Random cortisol level only 3.5. Unclear significance as patient had lactic acidemia but also hypertensive at the time. Recheck 04/07 12.3. Cosyntropin test ordered 04/08. 04/03 MRI brain-Moderate periventricular white matter changes are evident. There is no restricted diffusion. There is moderate atrophy with dilatation of ventricular sulcal spaces. There are no extra-axial fluid collections appreciated. Posterior fossa is unremarkable. 04/03 MRA brain-negative for major branch occlusion 04/03 CT brain-no acute intracranial process Patient's home meds baclofen 10 mg 3 times a day, tramadol 50 mg every 4 hours as needed and sertraline 50 mg twice a day have been on hold due to concern for serotonin syndrome, seizure activity and rhabdomyolysis. Patient has history of altered mental status secondary to being medication induced. Reported by family member -the patient had discontinued baclofen for approximately 3 months and took her initial dose of baclofen on 04/02 with a TID schedule dosing. Neurology actively following Dr. Martinez. Lumbar puncture ordered 04/07. Clopidogrel on hold since admission. Received last 04/03 empirically on vancomycin, ceftriaxone 2 g every 12 hours, acyclovir 700 mg every 8 hours. MRI brain 04/07 - There is mild periventricular white matter T2 prolongation. A tiny lacunar infarct in the right lentiform nucleus appears old. There is no evidence of intracranial mass or hemorrhage. The brainstem and posterior fossa structures are unremarkable. There is nothing to suggest acute infarction. There is fluid in the left maxillary sinus and occasional ethmoid sinuses. Discussed with Dr. Martinez. - See infectious disease Respiratory: Acute hypoxemic respiratory failure PRVC 16/500///35 Ventilator bundle Maintain O2 sat greater than 92% Albuterol/ipratropium aerosols nebs every 6 hours scheduled, albuterol aerosols every 2 hours when necessary Spontaneous breathing trials when clinically indicated Follow-up chest x-ray 04/08 Cardiovascular: Hypertensive emergency-resolved History of hypertension Hyperlipidemia Congestive heart failure - ejection fraction 55-60% 2009 Labetalol, hydralazine IV , PRN to maintain SBP <160 Serial troponins were negative. Continue metoprolol 25 mg every 6 hours On metoprolol 50 mg sustained release daily at home Holding clopidogrel 75 mg by mouth daily/home medication resume 04/09 Continue pravastatin 40 mg by mouth daily/home medication for dyslipidemia Renal//FEN: Chronic kidney disease stage IIIB Hypo-magnesium Maintain Moore catheter -- Strict I/Os Monitor urine output Monitor BMP Replete electrolytes as needed Previous Creatinine 12/2016- 1.15, upon admission 2.76, now at baseline Maintain OGT -continue Glucerna with goal rate 50 ml/hr per nutrition's recommendations Continue pravastatin 40 mg daily at bedtime for dyslipidemia 1 dose furosemide 20 mg IV 1 now. 2 g mag sulfate IV 1 now. GI: Esophageal stricture -history of esophageal dilatation GERD Elevated ammonia Constipation Patient is currently on Glucerna 1.5 goal 50 cc per hour per nutrition's recommendations Lansoprazole 30 mg daily GI prophylaxis. On Dexlansoprazole 60 mg times daily at home Docusate sodium/senna 1 tablet twice a day for bowel regimen. Add polyethylene glycol 17 g twice a day and lactulose 30 cc 4x a day 1 dose of methylnaltrexone 12 MG SUBCUTANEOUS 1 AND 30 CC MINERAL OIL 1. Check KUB today 04/08 Ammonia level Recheck in a.m. 04/09 ID: Escherichia coli UTI Monitor CBC Blood cultures 04/03 - negative Urine culture 04/03 - Escherichia coli, pansensitive Strep pneumococcal antigen 04/03 - negative CSF 04/07 Gram stain, fungal and AFB negative as of 04/08 Recent history of C. difficile colitis. Lactinex tid. Acyclovir initiated by Dr. Martinez. Use ceftriaxone/vancomycin for meningitis coverage pending LP results. Discuss with Dr. Martinez 04/08. HSV 1 and 2 negative. We will discontinue acyclovir. CSF preliminary no growth 24 hours. Gram stain final. Dr. Martinez wishes to wait until final results prior to discontinuing vancomycin and ceftriaxone/de-escalating to cefazolin for Escherichia coli UTI HEME/ONC: History of cervical cancer Normocytic anemia History of right lower extremity DVT - posterior tibial and femoral vein previously on Apixaban Patient normally on clopidogrel 75 mg daily hold since 04/03. Restart 04/09 Lactate level 1.8 Recheck Dopplers bilateral and right upper lower extremities 04/07 negative for DVT Endocrine: Diabetes mellitus Low cortisol Glucose monitoring per ICU protocol, low dose regimen Novulog every 6 hours Hold metformin thousand milligrams twice a day Restart cosyntropin test in 1700. See orders Prophylaxis: GI Prophylaxis Lansoprazole 30 mg daily DVT Prophylaxis -- SCDs okay to resume heparin cutaneous. Discussed with Dr. Martinez. Lines: Peripheral IVs providing adequate access. Central line if indicated Level II follow-up Agapito Leon MD Apr 08, 2017 17:00
[2017-04-08] MEDS ORDERED: GLYCERIN ADULT 2 GM SUPP RECTAL ONE (17:30)
[2017-04-08 17:32] LABS: LYME IGG IMMUNOBLOT CSF None Detected bands (None Detected); LYME IGM IMMUNOBLOT CSF None Detected bands (None Detected)
[2017-04-08] MEDS: MAGNESIUM SULFATE 1 GM PREMIX 100 ML IV SCH ×2 (17:35→18:54)
[2017-04-08] MEDS ORDERED: FUROSEMIDE 20 MG/2 ML VIAL IV PUSH ONE (17:45)
--- NOTE | 2017-04-08 20:35 | RADRPT ---
EXAM DATE/TIME: 04/08/2017 20:00 [facility] COMPARISON: No previous studies available for comparison. INDICATIONS : Abdominal distension MEDICAL HISTORY : Cardiovascular disease. Diabetes mellitus type 1. Osteoarthritis.polio, cervical cancer SURGICAL HISTORY : Appendectomy. Hysterectomy.Cholecystectomy ENCOUNTER: Initial ACUITY: 1 day PAIN SCORE: Non-responsive. LOCATION: Bilateral chest FINDINGS: 2 AP supine views of the abdomen and pelvis were obtained and demonstrate a nasogastric tube in place with the tip projected over the distal stomach. There is mild gaseous distention in the right side o f the colon with gas and stool noted segmentally in the remainder of the colon. There is no evidence of free air or mass effect on the supine study. The lung bases appear clear. The bony structures are intact. CONCLUSION: Nonspecific, nonobstructive bowel gas pattern which to represent a mild ileus. Nasogastric tube is in place. Alvaro Best MD on April 08, 2017 at 20:32 Board Certified Radiologist. This report was verified electronically.
[2017-04-08] MEDS: PRAVASTATIN SOD 40 MG TAB PO SCH (20:53)
[2017-04-08] MEDS: HEPARIN SODIUM - SQ 10,000 UNITS/ML VIAL SQ SCH (20:53)
--- NOTE | 2017-04-08 20:53 | HHI.PR ---
Review/Management Diagnosis Sz on EEG---subclinical--improved. Mainly right hemisphere sharp activity--- improved on versed and phosphenytoin. CSF so far normal, HSV is negative in csf Plan increase cerebyx and recheck phenytoin level in am continue keppra d/c acyclovir ok from neuro standpoint to stop antibiotics when csf final culture negative. continue sedation next several days, then consider weaning and repeat EEG Diagnosis/Plan: Subjective Subjective Comments No acute events reported Active Medications Current Medications Medications (Trade) Dose Ordered Sig/Georgie Route Start Time Stop Time Status Last Admin Fentanyl Citrate 250 ml @ 5 mls/hr TITRATE PRN IV 04/03/17 09:45 04/08/17 18:25 (NS Flush) 2 ml UNSCH PRN IV FLUSH 04/03/17 11:15 04/08/17 08:59 (NS Flush) 2 ml BID IV FLUSH 04/03/17 21:00 04/08/17 08:59 (Tears Naturale Opth Soln) 1 drop TID EACH EYE 04/03/17 13:00 04/08/17 18:20 Miscellaneous Information 1 Q361D XX 04/03/17 11:15 04/03/17 11:15 (Chlorhexidine 2% Cloth) 3 pack Taper DAILY@04 TOP 04/04/17 04:00 03/31/18 03:59 04/08/17 03:07 (Chlorhexidine 2% Cloth) 3 pack UNSCH PRN TOP 04/03/17 11:15 (Jenn-Colace) 1 tab BID PO 04/03/17 21:00 04/08/17 09:00 (Milk Of Magnesia Liq) 30 ml Q12H PRN PO 04/03/17 11:15 (Senokot) 17.2 mg Q12H PRN PO 04/03/17 11:15 (Dulcolax Supp) 10 mg DAILY PRN RECTAL 04/03/17 11:15 04/08/17 15:19 (D50w (Vial) Inj) 50 ml UNSCH PRN IV PUSH 04/03/17 11:30 (Glucagon Inj) 1 mg UNSCH PRN OTHER 04/03/17 11:30 (Vimpat) 100 mg BID PO 04/03/17 14:15 04/08/17 09:00 (Pravachol) 40 mg HS PO 04/03/17 21:00 04/07/17 21:19 (Trandate Inj) 10 mg Q4H PRN IV PUSH 04/03/17 14:30 (Apresoline Inj) 20 mg Q4H PRN IV PUSH 04/03/17 14:30 (Lopressor) 25 mg Q6HR PO 04/03/17 21:00 04/08/17 18:18 Potassium Chloride 100 ml @ 50 mls/hr Q2H PRN IV 04/05/17 09:15 Potassium Chloride 100 ml @ 50 mls/hr Q2H PRN IV 04/05/17 09:15 04/05/17 15:57 (K-Lyte Cl Eff) 50 meq UNSCH PRN PO 04/05/17 09:15 Potassium Chloride 100 ml @ 25 mls/hr UNSCH PRN IV 04/05/17 09:15 Potassium Chloride 100 ml @ 50 mls/hr Q2H PRN IV 04/05/17 09:15 Magnesium Sulfate 4 gm/Sodium Chloride 100 ml @ 50 mls/hr UNSCH PRN IV 04/05/17 09:15 (Mag-Ox) 800 mg UNSCH PRN PO 04/05/17 09:15 Magnesium Sulfate 2 gm/Sodium Chloride 100 ml @ 50 mls/hr UNSCH PRN IV 04/05/17 09:15 (K-Phos) 2,000 mg Q4H PRN PO 04/05/17 09:15 Sodium Phosphate 30 mmol/Sodium Chloride 250 ml @ 42 mls/hr UNSCH PRN IV 04/05/17 09:15 (K-Phos) 2,000 mg UNSCH PRN PO/TUBE 04/05/17 09:15 Potassium Phosphate 30 mmol/ Sodium Chloride 260 ml @ 42 mls/hr UNSCH PRN IV 04/05/17 09:15 Ceftriaxone Sodium 2000 mg/ Sodium Chloride 100 ml @ 200 mls/hr Q12H IV 04/05/17 11:00 04/08/17 11:30 (Lactinex Pkt) 1 gm TID OG-TUBE 04/05/17 13:00 04/08/17 18:18 (Ativan Inj) 2 mg Q5M PRN IV PUSH 04/05/17 10:45 04/05/17 14:18 Midazolam HCl 100 ml @ 2 mls/hr TITRATE PRN IV 04/05/17 11:15 04/08/17 13:47 (Cerebyx Inj) 100 mgpe Q6H IV 04/06/17 15:00 04/08/17 15:21 (Duoneb Neb) 1 ampule Q6HR NEB INH 04/06/17 22:00 04/08/17 20:36 (Tylenol 650 Mg/ 20 ml Liq) 650 mg Q6H PRN NG 04/06/17 17:00 04/08/17 15:50 (NovoLOG SUPPLEMENTAL SCALE) 1 Q6HR SQ 04/06/17 18:00 (Albuterol Neb) 2.5 mg Q2HR NEB PRN NEB 04/06/17 17:00 (Prevacid Odt) 30 mg DAILY NG 04/07/17 09:00 04/08/17 09:00 Levetriacetam 500 mg/Sodium Chloride 105 ml @ 420 mls/hr Q6HR IV 04/07/17 12:00 04/08/17 18:33 (Miralax) 17 gm BID PO 04/07/17 21:00 04/08/17 09:00 (Plavix) 75 mg DAILY PO 04/09/17 09:00 (Heparin Inj) 5,000 units Q8HR SQ 04/08/17 22:00 (Peridex 0.12% Liq) 15 ml BID@08,20 MT 04/08/17 20:00 (Lactulose Liq) 30 ml Q6HR PO 04/08/17 18:00 04/08/17 18:18 Allergies Allergies Coded Allergies Influenza Virus Vaccines (Unverified Allergy, Intermediate, 02/04/17) egg (Unverified Allergy, Intermediate, 02/04/17) codeine (Unverified Allergy, Mild, 02/04/17) meperidine (Unverified Allergy, Mild, 02/04/17) morphine (Unverified Allergy, Mild, 02/04/17) acetaminophen (Unverified Adverse Reaction, Mild, HEADACHE, 02/04/17) hydrocodone (Unverified Adverse Reaction, Mild, HEADACHE, 02/04/17) Exam I&O / VS 04/08/17 04/08/17 04/09/17 15:00 23:00 07:00 Intake Total 779.5 ml 1970.1 ml Output Total 1650 ml Balance 779.5 ml 320.1 ml Intake IV Total 779.5 ml 1110.1 ml Tube Feeding 560 ml Other 300 ml Output Urine Total 1650 ml # Bowel Movements 0 Vital Signs Date Time Temp Pulse Resp B/P (MAP) Pulse Ox O2 Delivery O2 Flow Rate FiO2 04/08/17 18:00 101 04/08/17 18:00 101 17 125/59 (81) 100 04/08/17 17:00 111 17 125/59 (81) 99 04/08/17 16:33 99 30 04/08/17 16:00 100.4 116 20 131/60 (83) 100 04/08/17 16:00 116 04/08/17 16:00 30 04/08/17 15:00 109 19 121/56 (77) 100 04/08/17 14:00 108 04/08/17 14:00 108 18 112/58 (76) 100 04/08/17 13:00 105 18 114/58 (76) 100 04/08/17 12:42 100 30 04/08/17 12:00 103 04/08/17 12:00 99.9 103 17 120/59 (79) 100 04/08/17 12:00 30 04/08/17 10:00 114 19 131/61 (84) 100 04/08/17 10:00 114 04/08/17 09:00 116 21 134/60 (84) 100 04/08/17 08:23 100 30 04/08/17 08:00 100.0 114 19 138/63 (88) 100 04/08/17 08:00 30 04/08/17 08:00 114 04/08/17 07:00 101 21 128/59 (82) 100 04/08/17 06:00 110 04/08/17 04:18 100 30 04/08/17 04:00 104 04/08/17 04:00 30 04/08/17 04:00 99.0 104 18 115/56 (75) 100 04/08/17 02:00 98 04/08/17 01:31 100 30 04/08/17 00:00 107 04/08/17 00:00 99.5 107 21 124/61 (82) 100 04/08/17 00:00 30 04/07/17 22:15 100 30 04/07/17 22:00 100 Exam Comments sedated, nonresponsive CN--Pupils 1 mm symmetric and reactive. EOM intact to Dolls maneuver MOTOR--no focal sx. No clinical tonic clonic activity Objective Radiology Results MRI brain repeat--normal Micro and Labs Laboratory Tests Test 04/08/17 06:28 04/08/17 06:29 04/08/17 17:18 04/08/17 18:58 White Blood Count 8.3 Red Blood Count 2.70 Hemoglobin 8.1 Hematocrit 24.2 Mean Corpuscular Volume 89.5 Mean Corpuscular Hemoglobin 29.8 Mean Corpuscular Hemoglobin Concent 33.4 Red Cell Distribution Width 15.3 Platelet Count 238 Mean Platelet Volume 8.0 Neutrophils (%) (Auto) 67.9 Lymphocytes (%) (Auto) 16.7 Monocytes (%) (Auto) 10.8 Eosinophils (%) (Auto) 4.2 Basophils (%) (Auto) 0.4 Neutrophils # (Auto) 5.7 Lymphocytes # (Auto) 1.4 Monocytes # (Auto) 0.9 Eosinophils # (Auto) 0.3 Basophils # (Auto) 0.0 CBC Comment DIFF FINAL Differential Comment Ammonia 30 Blood Urea Nitrogen 14 Creatinine 0.96 Random Glucose 105 Total Protein 5.3 Albumin 1.8 Calcium Level 7.7 Phosphorus Level 3.3 Magnesium Level 1.7 Alkaline Phosphatase 66 Aspartate Amino Transf (AST/SGOT) 15 Alanine Aminotransferase (ALT/SGPT) 8 Total Bilirubin 0.2 Sodium Level 140 Potassium Level 4.3 Chloride Level 108 Carbon Dioxide Level 20.9 Anion Gap 11 Estimat Glomerular Filtration Rate 57 Phenytoin (Dilantin) Level 9.0 Random Cortisol 12.6 26.0 Date/Time Source Procedure Growth Status 04/03/17 08:55 Blood Peripheral Aerobic Blood Culture - Final NO GROWTH IN 5 DAYS Complete 04/03/17 08:55 Blood Peripheral Anaerobic Blood Culture - Final NO GROWTH IN 5 DAYS Complete 04/07/17 09:47 Cerebral Spinal Fluid Lumbar Puncture Fungal Smear - Final NO FUNGAL ELEMENTS SEEN. Resulted 04/07/17 09:47 Cerebral Spinal Fluid Lumbar Puncture Fungal Culture Pending Resulted 04/03/17 09:54 Urine Catheterized Urine Streptococcus pneumoniae Antigen (M - Final PRESUMPTIVE NEGATIVE FOR STREPTOCOCCU... Complete Diagnostic Tests EEG--occasional sharp acitivity but much improved John Martinez MD PhD Apr 08, 2017 20:53
[2017-04-08] MEDS ORDERED: FOSPHENYTOIN SODIUM 100 MG PE/2 ML VIAL IV ONE (21:00)
--- NOTE | 2017-04-08 21:12 | MG ---
cc: CALOS RUIZ M.D. Lab No: [id number] Date: 1940 Age: 76 Sex: F Race: REFERRING: Juan. ROOM: 525. With photic done. MEDICATIONS: 7 milligrams Versed. 250 of Fentanyl. Acyclovir. Keppra. Cerebyx. Vimpat. Lopressor. HISTORY: Intubated. MRI negative. DESCRIPTION OF THE RECORD: Attenuated background predominantly 3 to 4 hertz. EKG looks sinus. Some minor artifact but overall predominantly between delta and theta frequency. No epileptiform features. Photic stimulation minimal driving response is noted. IMPRESSION: Abnormal EEG due to a moderate background slowing consistent with encephalopathic process however no epileptiform features in this recording. Clinical correlation. MD WARREN Yates/MERA /7:38 PM /8:53 PM
[2017-04-08] MEDS ORDERED: FOSPHENYTOIN INJ 300 MGPE in SODIUM CHLORIDE 0.9% INJ 50 ML IV ONE (21:30)
[2017-04-08] MEDS ORDERED: FOSPHENYTOIN SODIUM 100 MG PE/2 ML VIAL IV SCH (22:00)
[2017-04-09] VITALS (20 sets, daily range): BP systolic 118–145; BP diastolic 53–76; PULSE 93–124; RESP 18–21; TEMP 98.4–100.6; O2SAT 100
[2017-04-09] MEDS: cefTRIAXone INJ 2,000 MG in SODIUM CHLORIDE 0.9% INJ 100 ML IV SCH ×3 (00:07→21:37)
[2017-04-09] MEDS: METOCLOPRAMIDE HCL 10 MG/2 ML VIAL IV PUSH SCH ×4 (00:08→21:35)
[2017-04-09] MEDS: levETIRAcetam INJ 500 MG in SODIUM CHLORIDE 0.9% INJ 100 ML IV SCH ×5 (00:16→23:15)
[2017-04-09] MEDS: METOPROLOL TARTRATE 25 MG TAB PO SCH ×5 (00:16→23:15)
[2017-04-09] MEDS: CHLORHEXIDINE GLUCONATE 2 % 1 PACK (2 CLOTHS) TOP SCH (03:05)
[2017-04-09] MEDS: RESP: ALBUTEROL 2.5 MG/IPRATROPIUM 0.5 MG NEB (SCH) INH ×4 (03:15→21:52)
[2017-04-09] MEDS: MIDAZOLAM 100 MG/100 ML INJ 100 ML IV PRN ×2 (03:30→18:38)
[2017-04-09] MEDS: HEPARIN SODIUM - SQ 10,000 UNITS/ML VIAL SQ SCH ×3 (05:04→21:36)
[2017-04-09] MEDS: FOSPHENYTOIN INJ 200 MGPE in SODIUM CHLORIDE 0.9% INJ 50 ML IV SCH ×3 (05:04→21:35)
[2017-04-09] MEDS: LACTULOSE SYRUP 20 GM/30 ML CUP PO SCH ×5 (05:05→23:15)
[2017-04-09] MEDS: fentaNYL DRIP 250 ML IV PRN ×2 (05:17→15:37)
--- NOTE | 2017-04-09 05:21 | RADRPT ---
EXAM DATE/TIME: 04/09/2017 03:52 [facility] COMPARISON: CHEST SINGLE AP, April 08, 2017, 4:41. INDICATIONS : Shortness of breath, possible pulmonary disease. MEDICAL HISTORY : Cardiovascular disease. Diabetes mellitus type I. Osteoporosis. Polio Cervical ca SURGICAL HISTORY : Appendectomy. Hysterectomy. Cholecystectomy. ENCOUNTER: Subsequent ACUITY: 1 week PAIN SCORE: Non-responsive. LOCATION: Bilateral chest FINDINGS: Mild patchy consolidation again seen left lung base, not significantly changed. A tiny left pleural e ffusion is likely as well. No pneumothorax seen. Heart size stable, normal. Endotracheal tube tip is approximately 3 cm above the yoly. There is a nasogastric tube coiled in t he stomach. CONCLUSION: No significant change mild consolidation and small pleural effusion of the left lung base. Kali Medeiros MD on April 09, 2017 at 5:19 Board Certified Radiologist. This report was verified electronically.
[2017-04-09 05:27] LABS: HEMATOCRIT 23.2 % (35.0-46.0); HEMOGLOBIN 7.7 GM/DL (11.6-15.3); MEAN CELL VOLUME 88.8 FL (80.0-100.0); MEAN CORPUSCULAR HEMOGLOBIN 29.5 PG (27.0-34.0); MEAN CORPUSCULAR HGB CONC 33.2 % (32.0-36.0); MEAN PLATELET VOLUME 7.5 FL (7.0-11.0); PLATELET COUNT 262 TH/MM3 (150-450); RED BLOOD COUNT 2.62 MIL/MM3 (4.00-5.30); RED CELL DISTRIBUTION WIDTH 15.5 % (11.6-17.2); WHITE BLOOD COUNT 7.7 TH/MM3 (4.0-11.0)
[2017-04-09 05:56] LABS: ALBUMIN 2.1 GM/DL (3.4-5.0); ALT (GPT) 11 U/L (10-53); AST (GOT) 18 U/L (15-37); BLOOD UREA NITROGEN 19 MG/DL (7-18); CALCIUM 8.3 MG/DL (8.5-10.1); CHLORIDE 108 MEQ/L (98-107); GLOMERULAR FILTRATION RATE 54 ML/MIN (>89); GLUCOSE,RANDOM 116 MG/DL (74-106); MAGNESIUM 2.1 MG/DL (1.5-2.5); PHOSPHORUS 3.8 MG/DL (2.5-4.9); SODIUM (NA) 140 MEQ/L (136-145)
[2017-04-09 05:59] LABS: ALKALINE PHOSPHATASE 81 U/L (45-117); TOTAL BILIRUBIN ADULT 0.1 MG/DL (0.2-1.0); TOTAL PROTEIN 6.5 GM/DL (6.4-8.2)
[2017-04-09] MEDS: INSULIN ASPART SUPPLEMENTAL SCALE SQ SCH ×5 (06:00→23:15)
[2017-04-09] MEDS: SODIUM CHLORIDE 0.9% FLUSH 10 ML FLUSH IV FLUSH SCH ×2 (08:04→20:07)
[2017-04-09] MEDS: ARTIFICIAL TEARS OPTH SOLN 15 ML BTL EACH EYE SCH ×3 (08:04→17:13)
[2017-04-09] MEDS: CHLORHEXIDINE 0.12% (ORAL KIT) 15 ML CUP MT SCH ×2 (08:04→20:07)
[2017-04-09] MEDS: LACOSAMIDE 100 MG TAB PO SCH ×2 (08:05→20:08)
[2017-04-09] MEDS: CLOPIDOGREL 75 MG TAB PO SCH (08:05)
[2017-04-09] MEDS: LANSOPRAZOLE SOLUTAB 30 MG TAB NG SCH (08:05)
[2017-04-09] MEDS: LACTOBACILLUS ACIDOPHILUS 1 GM PACKET OG-TUBE SCH ×3 (08:05→17:08)
[2017-04-09 08:10] LABS: BANDS 3 % (0-6); LYMPHOCYTES 14 % (9-44); MONOCYTES 11 % (0-8); NEUTROPHIL # MANUAL DIFF 5.6 TH/MM3 (1.8-7.7); OVALOCYTES 1+ (NORMAL); POLYS (SEG NEUTROPHILS) 70 % (16-70)
[2017-04-09] MEDS: POLYETHYLENE GLYCOL 17 GM PKG PO SCH ×2 (09:00→20:07)
[2017-04-09] MEDS: DOCUSATE SODIUM 50 MG/SENNA 8.6 MG TAB PO SCH ×2 (09:00→20:08)
[2017-04-09] MEDS: ACETAMINOPHEN 650 MG/20.3 ML UDC NG PRN (11:53)
--- NOTE | 2017-04-09 15:30 | HHI.PR ---
Subjective Remarks intubated sedated Objective Vital Signs Date Time Temp Pulse Resp B/P (MAP) Pulse Ox O2 Delivery O2 Flow Rate FiO2 04/09/17 14:00 101 04/09/17 13:36 99.6 04/09/17 12:00 100.6 124 21 118/72 (87) 100 04/09/17 12:00 30 04/09/17 12:00 124 04/09/17 11:42 100 30 04/09/17 10:00 117 04/09/17 08:25 100 30 04/09/17 08:00 30 04/09/17 08:00 100.6 111 19 124/53 (76) 100 04/09/17 08:00 111 04/09/17 06:00 119 04/09/17 04:00 30 04/09/17 04:00 98.9 119 18 145/66 (92) 100 04/09/17 04:00 119 04/09/17 03:58 100 30 04/09/17 02:00 97 04/09/17 01:36 100 30 04/09/17 00:00 30 04/09/17 00:00 93 04/09/17 00:00 98.9 93 19 135/63 (87) 100 04/08/17 22:30 100 30 04/08/17 22:00 95 04/08/17 20:36 100 30 04/08/17 20:00 99.3 106 18 135/71 (92) 100 04/08/17 20:00 106 04/08/17 20:00 30 04/08/17 18:00 101 04/08/17 18:00 101 17 125/59 (81) 100 04/08/17 17:00 111 17 125/59 (81) 99 04/08/17 16:33 99 30 04/08/17 16:00 100.4 116 20 131/60 (83) 100 04/08/17 16:00 116 04/08/17 16:00 30 I/O 04/08/17 04/08/17 04/08/17 04/09/17 04/09/17 04/09/17 07:00 15:00 23:00 07:00 15:00 23:00 Intake Total 1696 ml 779.5 ml 2026.1 ml 1617 ml Output Total 1700 ml 1650 ml 2300 ml Balance -4 ml 779.5 ml 376.1 ml -683 ml Intake IV Total 1311 ml 779.5 ml 1166.1 ml 737 ml Tube Feeding 135 ml 560 ml 580 ml Tube Irrigant 250 ml 300 ml Other 300 ml Output Urine Total 1700 ml 1650 ml 2300 ml # Bowel Movements 0 3 Result Diagram: 04/09/1751204/09/17512 Other Results pht 13 Objective Remarks sedated some eye opening not following no wd Assessment and Plan Assessment and Plan s/p status eplipeticus cont pht,lev wean as able. labs still pending. Bessie Herr MD Apr 09, 2017 15:30
[2017-04-09 19:50] LABS: CSF CRYPTOCOCCUS ANTIGEN NOT DETECTED (()); VDRL CSF NON-REACTIVE (())
[2017-04-09] MEDS: PRAVASTATIN SOD 40 MG TAB PO SCH (20:08)
--- NOTE | 2017-04-09 20:08 | HHI.CCPN ---
Subjective Remarks/Hospital Course This is a 76-year-old female that presented to the ED for evaluation of altered mental status. Per report, according to EMS the patient normally is more alert and has a history of stroke, he was able to speak with the patient's sister who states that she is also power of bankruptcy attorney, the patient apparently normally is ambulatory and can carry on a conversation without any difficulty. Per records reviewed, the patient was last seen normal and at her baseline at 1 am. The patient then sat down in her lazy chair, her sister also noted that she started beating her head against a piece of furniture. The patient was noted to have a right frontal contusion upon presentation to the ED .She had a GCS of 7-8 on arrival. The patient's medical history is significant for a recent admission 12/2016 for altered mental status, medication induced. Her past medical history is also significant for a recent history of UTI and C. difficile in addition to her history of having a CVA and reportedly residual effects in the right upper and lower extremity. Laboratory and imaging studies revealed that most likely the patient has a UTI, CT of the brain revealed no abnormality and the patient was noted to have an elevated lactate level. The patient was emergently intubated in the ED, and the patient was noted to be significantly hypertensive and a nicardipine infusion was instituted. Upon entering the ED the patient's blood pressure was noted to be 219/92, Cardizem infusion had been ordered. The patient was noted to have spontaneous movement of the right upper and lower extremity with a gag reflex. Critical care medicine was consulted. 04/04: The patient was weaned off of nicardipine infusion. Normotensive the patient continues on labetalol twice a day scheduled home dosing. EEG attempted last evening however due to patient's movement bilaterally to complete artifact EEG reordered. Fentanyl infusion discontinued for daily sedation vacation approximately 7 hours ago the patient remains nonresponsive. Opens eyes spontaneously, moves limbs spontaneously but does not follow any commands. Brain MRI/MRA, and CT all negative findings. EEG scheduled for a.m.. The patient continues in severe metabolic acidosis, 2 Amps of sodium bicarbonate IV push given this a.m., sodium bicarbonate infusion increased. Lactate is cleared, creatinine is improving, CT of the abdomen and pelvis is pending this afternoon. 04/05 CT report from yesterday shows bladder edema consistent with cystitis. URine culture with GNR Blood cultures NGTD. . Getting EEG now. 04/06: Resting comfortable in bed in no acute distress. No obvious seizure activity. Plan for lumbar puncture in AM. Low-grade temperatures overnight. Tolerating tube feeding at goal. No bowel movement 04/07: Continues EEG has been discontinued. Tmax 100. Currently 99.8. No bowel movement since admission. Tolerating tube feeds at goal. No active seizure activity overnight. 04/08: Tmax 100. Currently 99.9. Became tachycardic with sedation lowered so RN increased midazolam to 9 milligrams an hour. Also fentanyl drip at 250 mcg per hour. No bowel movement since admission. Tolerating tube feedings with only 40 cc residuals. Receiving methylnaltrexone milligrams subcutaneous 1 along with mineral oil and suppository. KUB pending. Patient improved neurological exam. Blinks with my suddenhand movements towards face. Positive gag. Withdraws to pain in all 4 extremity's. Subjective 04/09 LP results not yet finalized. On versed 7 mg/hr and fentanyl 250 mcg/hr. EEG from 04/08 - no epileptiform features. Okay to start weaning per Dr. Pat. Objective Vital Signs Date Time Temp Pulse Resp B/P (MAP) Pulse Ox O2 Delivery O2 Flow Rate FiO2 04/09/17 18:00 100 04/09/17 16:09 100 30 04/09/17 16:00 98.4 20 128/76 (93) Intake and Output 04/09/17 04/09/17 04/10/17 08:00 16:00 00:00 Intake Total 1617 ml 509 ml 896.7 ml Output Total 2300 ml 1000 ml Balance -683 ml 509 ml -103.3 ml Result Diagram: 04/09/17 0513 04/09/17 0513 Other Results Laboratory Tests Test 04/09/17 06:03 Blood Gas Puncture Site RT RADIAL Blood Gas Patient Temperature 98.6 Blood Gas HCO3 21 mmol/L (22-26) Blood Gas Base Excess -2.6 mmol/L (-2-2) Blood Gas Oxygen Saturation 97 % (90-100) Arterial Blood pH 7.44 (7.380-7.420) Arterial Blood Partial Pressure CO2 31 mmHg (38-42) Arterial Blood Partial Pressure O2 125 mmHg (61-120) Arterial Blood Oxygen Content 10.6 Vol % (12.0-20.0) Arterial Blood Carboxyhemoglobin 0.9 % (0-4) Arterial Blood Methemoglobin 0.9 % (0-2) Blood Gas Hemoglobin 7.6 G/DL (12.0-16.0) Oxygen Delivery Device VENTILATOR Blood Gas Ventilator Setting PRVC/AC Blood Gas Inspired Oxygen 30 % Imaging Last Impressions Chest X-Ray 04/08/17 0600 Signed Impressions: Service Date/Time: Saturday, April 08, 2017 04:41 - CONCLUSION: No significant interval change. Kd Doty MD Lumbar Puncture Fluoroscopy 04/07/17 0000 Signed Impressions: Service Date/Time: March 09:39 - CONCLUSION: Uncomplicated fluoroscopically guided lumbar puncture. Harris Gamboa MD Brain MRI 04/07/17 0000 Signed Impressions: Service Date/Time: March 10:24 - CONCLUSION: No acute intracranial findings Kali Jerry MD Upper Extremity Ultrasound 04/06/17 0000 Signed Impressions: Service Date/Time: Thursday, April 06, 2017 21:32 - CONCLUSION: 1. No sonographic evidence for right upper extremity DVT. Harris Gamboa MD Lower Extremity Ultrasound 04/06/17 0000 Signed Impressions: Service Date/Time: Thursday, April 06, 2017 21:12 - CONCLUSION: 1. No sonographic evidence for lower extremity DVT. Harris Gamboa MD Abdomen/Pelvis CT 04/04/17 0000 Signed Impressions: Service Date/Time: Tuesday, April 04, 2017 16:05 - CONCLUSION: 1. Mild edema surrounding the urinary bladder, question cystitis. Moore catheter in place. 2. Status post cholecystectomy. 3. Left lower lobe atelectasis. 4. Nasogastric tube tip at the gastroesophageal junction. Kd Doty MD Neck Magnetic Resonance Angiography 04/03/17 1119 Signed Impressions: Service Date/Time: Monday, April 03, 2017 13:11 - CONCLUSION: Negative for hemodynamically significant carotid stenosis Roque Tripathi MD FACR Head Magnetic Resonance Angiography 04/03/17 1119 Signed Impressions: Service Date/Time: Monday, April 03, 2017 13:11 - CONCLUSION: Negative for major branch vessel occlusion. Roque Tripathi MD FACR Head CT 04/03/17 0851 Signed Impressions: Service Date/Time: Monday, April 03, 2017 09:02 - CONCLUSION: Negative for acute process.. Roque Tripathi MD FACR Cervical Spine CT 04/03/17 0000 Signed Impressions: Service Date/Time: Monday, April 03, 2017 09:07 - CONCLUSION: Fusion as above, negative for fracture. Roque Tripathi MD FACR Objective Remarks GENERAL: 76-year-old female currently orotracheally intubated SKIN: Warm and dry. HEAD: Atraumatic. Normocephalic. EYES: R periorbital ecchmosis. Pupils equal and round 1-2 mm bilaterally. No scleral icterus. No injection or drainage. ENT: No nasal bleeding or discharge. Mucous membranes pink and moist. NECK: Trachea midline. No JVD. CARDIOVASCULAR: RRR. S1, S2 withoutmurmur RESPIRATORY: No accessory muscle use.Breath sounds equal bilaterally. Coarse. GASTROINTESTINAL: Abdomen soft, non-tender, nondistended. No guarding. MUSCULOSKELETAL: Right upper extremity with 2+ edema and erythema. Negative Doppler ultrasound 04/06 for DVT NEUROLOGICAL: Cranial nerves II through XII appear grossly intact. Eyes open with noxious stimuli.. Does not track. Positive gag. Positive corneal reflex. Withdraws to pain in all 4 extremities currently. 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 Date of Insertion: Apr 03, 2017 A/P Assessment and Plan Neuro/Psych Post polio syndrome bilateral lower extremity weakness Status epilepticus History of CVATIA with R sided deficits - right lentiform nucleus H/O seizures Anxiety/depression Left maxillary/ethmoid fluid levels question sinusitis 04/07 interpretation EEG - Abnormal EEG due to some mild to moderate slowing, but also some occasional sharps and spike and slow waves seen, but improved from prior EEG's. Clinical correlation. [id number] milligrams twice a day will be continued. Loaded with fosphenytoin - currently fosphenytoin 200 mg IV every 8 hours. LEvel 13 04/09 Levetiracetam 500 mg IV every 6 hours Lorazepam 2 mg IV every 5 minutes as needed. Seizures Versed drip currently at 7 mg/h. We'll start weaning Fentanyl drip currently at 250 mcg an hour. Patient does have history of chronic pain TSH normal-3.0 Random cortisol level only 3.5. Unclear significance as patient had lactic acidemia but also hypertensive at the time. Recheck 04/07 12.3. Cosyntropin test ordered 04/08, had adequate response 04/03 MRI brain-Moderate periventricular white matter changes are evident. There is no restricted diffusion. There is moderate atrophy with dilatation of ventricular sulcal spaces. There are no extra-axial fluid collections appreciated. Posterior fossa is unremarkable. 04/03 MRA brain-negative for major branch occlusion 04/03 CT brain-no acute intracranial process Patient's home meds baclofen 10 mg 3 times a day, tramadol 50 mg every 4 hours as needed and sertraline 50 mg twice a day have been on hold due to concern for serotonin syndrome, seizure activity and rhabdomyolysis. Patient has history of altered mental status secondary to being medication induced. Reported by family member -the patient had discontinued baclofen for approximately 3 months and took her initial dose of baclofen on 04/02 with a TID schedule dosing. Neurology actively following Dr. Martinez. Lumbar puncture ordered 04/07. empirically on vancomycin, ceftriaxone 2 g every 12 hours, acyclovir 700 mg every 8 hours. MRI brain 04/07 - There is mild periventricular white matter T2 prolongation. A tiny lacunar infarct in the right lentiform nucleus appears old. There is no evidence of intracranial mass or hemorrhage. The brainstem and posterior fossa structures are unremarkable. There is nothing to suggest acute infarction. There is fluid in the left maxillary sinus and occasional ethmoid sinuses. Discussed with Dr. Martinez. - See infectious disease Respiratory: Acute hypoxemic respiratory failure [facility] 16/500/04/15/34 Ventilator bundle Maintain O2 sat greater than 92% Albuterol/ipratropium aerosols nebs every 6 hours scheduled, albuterol aerosols every 2 hours when necessary Spontaneous breathing trials when clinically indicated Follow-up chest x-ray 04/08 Cardiovascular: Hypertensive emergency-resolved History of hypertension Hyperlipidemia Congestive heart failure - ejection fraction 55-60% 2009 Labetalol, hydralazine IV , PRN to maintain SBP <160 Serial troponins were negative. Continue metoprolol 25 mg every 6 hours On metoprolol 50 mg sustained release daily at home continue clopidogrel 75 mg by mouth daily/home medication Resumed 04/09 Continue pravastatin 40 mg by mouth daily/home medication for dyslipidemia Renal//FEN: Chronic kidney disease stage IIIB Hypo-magnesium Maintain Moore catheter -- Strict I/Os Monitor urine output Monitor BMP Replete electrolytes as needed Previous Creatinine 12/2016- 1.15, upon admission 2.76, now at baseline Maintain OGT -continue Glucerna with goal rate 50 ml/hr per nutrition's recommendations Continue pravastatin 40 mg daily at bedtime for dyslipidemia Lasix 40 mg IV now GI: Esophageal stricture -history of esophageal dilatation GERD Elevated ammonia Constipation Patient is currently on Glucerna 1.5 goal 50 cc per hour per nutrition's recommendations Lansoprazole 30 mg daily GI prophylaxis. On Dexlansoprazole 60 mg times daily at home Docusate sodium/senna 1 tablet twice a day for bowel regimen. Add polyethylene glycol 17 g twice a day and lactulose 30 cc 4x a day 1 dose of methylnaltrexone 12 MG SUBCUTANEOUS 1 AND 30 CC MINERAL OIL 1 Now having BMs. KUB 04/08 - mild ileus Ammonia level Recheck in a.m. 04/09 ID: Escherichia coli UTI Monitor CBC Blood cultures 04/03 - negative Urine culture 04/03 - Escherichia coli, pansensitive Strep pneumococcal antigen 04/03 - negative CSF 04/07 Gram stain, fungal and AFB negative as of 04/08 Recent history of C. difficile colitis. Lactinex tid. Acyclovir initiated by Dr. Martinez, now discontinued with HSV 1 and 2 negative. . Use ceftriaxone/vancomycin for meningitis coverage pending LP results. CSF preliminary no growth 48 hours. Gram stain final. Dr. Martinez wishes to wait until final results prior to discontinuing vancomycin and ceftriaxone/de- escalating to cefazolin for Escherichia coli UTI HEME/ONC: History of cervical cancer Normocytic anemia History of right lower extremity DVT - posterior tibial and femoral vein previously on Apixaban Clopidogrel 75 mg daily initially held for LP. Restarted 04/09 Lactate level 1.8 Recheck Dopplers bilateral and right upper lower extremities 04/07 negative for DVT Endocrine: Diabetes mellitus Low cortisol Glucose monitoring per ICU protocol, low dose regimen Novulog every 6 hours Hold metformin thousand milligrams twice a day Prophylaxis: GI Prophylaxis Lansoprazole 30 mg daily DVT Prophylaxis -- SCDs continue heparin 5000 units subcutaneous every [address] Martinez. Lines: Peripheral IVs providing adequate access. Level II follow-up Minerva Calabrese MD Apr 09, 2017 20:08
[2017-04-09] MEDS ORDERED: FUROSEMIDE 40 MG/4 ML VIAL IV PUSH ONE (20:15)
[2017-04-10] VITALS (18 sets, daily range): BP systolic 115–160; BP diastolic 64–79; PULSE 102–126; RESP 19–23; TEMP 98–99.6; O2SAT 97–100
[2017-04-10] MEDS: fentaNYL DRIP 250 ML IV PRN ×2 (02:18→12:46)
[2017-04-10] MEDS: CHLORHEXIDINE GLUCONATE 2 % 1 PACK (2 CLOTHS) TOP SCH (02:18)
[2017-04-10] MEDS: RESP: ALBUTEROL 2.5 MG/IPRATROPIUM 0.5 MG NEB (SCH) INH ×4 (03:30→19:36)
[2017-04-10] MEDS: FOSPHENYTOIN INJ 200 MGPE in SODIUM CHLORIDE 0.9% INJ 50 ML IV SCH ×3 (05:02→20:34)
[2017-04-10] MEDS: HEPARIN SODIUM - SQ 10,000 UNITS/ML VIAL SQ SCH ×3 (05:03→20:35)
[2017-04-10] MEDS: METOCLOPRAMIDE HCL 10 MG/2 ML VIAL IV PUSH SCH ×3 (05:03→20:35)
[2017-04-10] MEDS: LACTULOSE SYRUP 20 GM/30 ML CUP PO SCH ×4 (05:03→23:25)
[2017-04-10] MEDS: METOPROLOL TARTRATE 25 MG TAB PO SCH ×4 (05:03→23:25)
[2017-04-10] MEDS: levETIRAcetam INJ 500 MG in SODIUM CHLORIDE 0.9% INJ 100 ML IV SCH ×4 (05:03→23:25)
[2017-04-10] MEDS: INSULIN ASPART SUPPLEMENTAL SCALE SQ SCH ×4 (05:04→23:27)
[2017-04-10 05:24] LABS: AUTOMATED NEUTROPHIL # 4.9 TH/MM3 (1.8-7.7); BASOPHIL % 0.1 % (0.0-2.0); EOSINOPHIL # 0.2 TH/MM3 (0-0.4); EOSINOPHIL % 2.3 % (0.0-4.0); HEMOGLOBIN 7.6 GM/DL (11.6-15.3); LYMPH % 22.7 % (9.0-44.0); LYMPHOCYTE # 1.8 TH/MM3 (1.0-4.8); MEAN CELL VOLUME 88.5 FL (80.0-100.0); MEAN CORPUSCULAR HEMOGLOBIN 29.2 PG (27.0-34.0); MEAN PLATELET VOLUME 7.8 FL (7.0-11.0); MONO % 12.3 % (0.0-8.0); NEUT % 62.6 % (16.0-70.0); PLATELET COUNT 304 TH/MM3 (150-450); RED CELL DISTRIBUTION WIDTH 15.5 % (11.6-17.2); WHITE BLOOD COUNT 7.9 TH/MM3 (4.0-11.0)
[2017-04-10 05:51] LABS: BICARBONATE 24.3 MEQ/L (21.0-32.0); CALCIUM 8.3 MG/DL (8.5-10.1); CREATININE 1.01 MG/DL (0.50-1.00)
[2017-04-10] MEDS: CLOPIDOGREL 75 MG TAB PO SCH (07:59)
[2017-04-10] MEDS: LACOSAMIDE 100 MG TAB PO SCH ×2 (07:59→20:34)
[2017-04-10] MEDS: LANSOPRAZOLE SOLUTAB 30 MG TAB NG SCH (07:59)
[2017-04-10] MEDS: LACTOBACILLUS ACIDOPHILUS 1 GM PACKET OG-TUBE SCH ×3 (07:59→17:11)
[2017-04-10] MEDS: DOCUSATE SODIUM 50 MG/SENNA 8.6 MG TAB PO SCH ×2 (07:59→20:34)
[2017-04-10] MEDS: POLYETHYLENE GLYCOL 17 GM PKG PO SCH ×2 (07:59→20:34)
[2017-04-10] MEDS: ARTIFICIAL TEARS OPTH SOLN 15 ML BTL EACH EYE SCH ×3 (08:00→17:12)
[2017-04-10] MEDS: CHLORHEXIDINE 0.12% (ORAL KIT) 15 ML CUP MT SCH ×2 (08:00→20:34)
[2017-04-10] MEDS: SODIUM CHLORIDE 0.9% FLUSH 10 ML FLUSH IV FLUSH SCH ×2 (08:00→20:34)
[2017-04-10 10:20] LABS: CSF CRYPTOCOCCUS AG CONF ND (NOT DETECTD)
[2017-04-10] MEDS: cefTRIAXone INJ 2,000 MG in SODIUM CHLORIDE 0.9% INJ 100 ML IV SCH (11:45)
[2017-04-10] MEDS: MIDAZOLAM 100 MG/100 ML INJ 100 ML IV PRN (11:53)
--- NOTE | 2017-04-10 19:17 | HHI.CCPN ---
Subjective Remarks/Hospital Course This is a 76-year-old female that presented to the ED for evaluation of altered mental status. Per report, according to EMS the patient normally is more alert and has a history of stroke, he was able to speak with the patient's sister who states that she is also power of [employer], the patient apparently normally is ambulatory and can carry on a conversation without any difficulty. Per records reviewed, the patient was last seen normal and at her baseline at 1 am. The patient then sat down in her lazy chair, her sister also noted that she started beating her head against a piece of furniture. The patient was noted to have a right frontal contusion upon presentation to the ED .She had a GCS of 7-8 on arrival. The patient's medical history is significant for a recent admission 12/2016 for altered mental status, medication induced. Her past medical history is also significant for a recent history of UTI and C. difficile in addition to her history of having a CVA and reportedly residual effects in the right upper and lower extremity. Laboratory and imaging studies revealed that most likely the patient has a UTI, CT of the brain revealed no abnormality and the patient was noted to have an elevated lactate level. The patient was emergently intubated in the ED, and the patient was noted to be significantly hypertensive and a nicardipine infusion was instituted. Upon entering the ED the patient's blood pressure was noted to be 219/92, Cardizem infusion had been ordered. The patient was noted to have spontaneous movement of the right upper and lower extremity with a gag reflex. Critical care medicine was consulted. 04/04: The patient was weaned off of nicardipine infusion. Normotensive the patient continues on labetalol twice a day scheduled home dosing. EEG attempted last evening however due to patient's movement bilaterally to complete artifact EEG reordered. Fentanyl infusion discontinued for daily sedation vacation approximately 7 hours ago the patient remains nonresponsive. Opens eyes spontaneously, moves limbs spontaneously but does not follow any commands. Brain MRI/MRA, and CT all negative findings. EEG scheduled for a.m.. The patient continues in severe metabolic acidosis, 2 Amps of sodium bicarbonate IV push given this a.m., sodium bicarbonate infusion increased. Lactate is cleared, creatinine is improving, CT of the abdomen and pelvis is pending this afternoon. 04/05 CT report from yesterday shows bladder edema consistent with cystitis. URine culture with GNR Blood cultures NGTD. . Getting EEG now. 04/06: Resting comfortable in bed in no acute distress. No obvious seizure activity. Plan for lumbar puncture in AM. Low-grade temperatures overnight. Tolerating tube feeding at goal. No bowel movement 04/07: Continues EEG has been discontinued. Tmax 100. Currently 99.8. No bowel movement since admission. Tolerating tube feeds at goal. No active seizure activity overnight. 04/08: Tmax 100. Currently 99.9. Became tachycardic with sedation lowered so RN increased midazolam to 9 milligrams an hour. Also fentanyl drip at 250 mcg per hour. No bowel movement since admission. Tolerating tube feedings with only 40 cc residuals. Receiving methylnaltrexone milligrams subcutaneous 1 along with mineral oil and suppository. KUB pending. Patient improved neurological exam. Blinks with my suddenhand movements towards face. Positive gag. Withdraws to pain in all 4 extremities. 04/09 LP results not yet finalized. On versed 7 mg/hr and fentanyl 250 mcg/hr. EEG from 04/08 - no epileptiform features. Subjective 04/10 Weaning fentanyl down but remains on versed for seizure suppression. Because she had difficult to control subclinical seizures, will need close EEG monitoring for benzo weaning. Was breathing on PSV for couple of hours day, even on sedation. CSF negative final culture. No Leukocytosis or fever. Will stop antibiotic. Updated sister. Objective Vital Signs Date Time Temp Pulse Resp B/P (MAP) Pulse Ox O2 Delivery O2 Flow Rate FiO2 04/10/17 18:00 116 04/10/17 16:00 99.0 19 160/73 (102) 98 04/10/17 14:56 30 Intake and Output 04/10/17 04/10/17 04/11/17 08:00 16:00 00:00 Intake Total 1358 ml 205 ml 1090.1 ml Output Total 2450 ml 850 ml Balance -1092 ml 205 ml 240.1 ml Result Diagram: 04/10/17 0433 04/10/17 0433 Imaging Last Impressions Chest X-Ray 04/08/17 0600 Signed Impressions: Service Date/Time: Saturday, April 08, 2017 04:41 - CONCLUSION: No significant interval change. Kd Doty MD Lumbar Puncture Fluoroscopy 04/07/17 0000 Signed Impressions: Service Date/Time: March 09:39 - CONCLUSION: Uncomplicated fluoroscopically guided lumbar puncture. Harris Gamboa MD Brain MRI 04/07/17 0000 Signed Impressions: Service Date/Time: March 10:24 - CONCLUSION: No acute intracranial findings Kali Jerry MD Upper Extremity Ultrasound 04/06/17 0000 Signed Impressions: Service Date/Time: Thursday, April 06, 2017 21:32 - CONCLUSION: 1. No sonographic evidence for right upper extremity DVT. Harris Gamboa MD Lower Extremity Ultrasound 04/06/17 0000 Signed Impressions: Service Date/Time: Thursday, April 06, 2017 21:12 - CONCLUSION: 1. No sonographic evidence for lower extremity DVT. Harris Gamboa MD Abdomen/Pelvis CT 04/04/17 0000 Signed Impressions: Service Date/Time: Tuesday, April 04, 2017 16:05 - CONCLUSION: 1. Mild edema surrounding the urinary bladder, question cystitis. Moore catheter in place. 2. Status post cholecystectomy. 3. Left lower lobe atelectasis. 4. Nasogastric tube tip at the gastroesophageal junction. Kd Doty MD Neck Magnetic Resonance Angiography 04/03/17 1119 Signed Impressions: Service Date/Time: Monday, April 03, 2017 13:11 - CONCLUSION: Negative for hemodynamically significant carotid stenosis Roque Tripathi MD FACR Head Magnetic Resonance Angiography 04/03/17 1119 Signed Impressions: Service Date/Time: Monday, April 03, 2017 13:11 - CONCLUSION: Negative for major branch vessel occlusion. Roque Tripathi MD FACR Head CT 04/03/17 0851 Signed Impressions: Service Date/Time: Monday, April 03, 2017 09:02 - CONCLUSION: Negative for acute process.. Roque Tripathi MD FACR Cervical Spine CT 04/03/17 0000 Signed Impressions: Service Date/Time: Monday, April 03, 2017 09:07 - CONCLUSION: Fusion as above, negative for fracture. Roque Tripathi MD FACR Objective Remarks GENERAL: 76-year-old female currently orotracheally intubated SKIN: Warm and dry. HEAD: Atraumatic. Normocephalic. EYES: R periorbital ecchmosis. Pupils equal and round 1-2 mm bilaterally. No scleral icterus. No injection or drainage. ENT: No nasal bleeding or discharge. Mucous membranes pink and moist. NECK: Trachea midline. No JVD. CARDIOVASCULAR: RRR. S1, S2 without murmur RESPIRATORY: No accessory muscle use.Breath sounds equal bilaterally. Coarse. GASTROINTESTINAL: Abdomen soft, non-tender, nondistended. No guarding. MUSCULOSKELETAL: Right upper extremity with 2+ edema and erythema. Negative Doppler ultrasound 04/06 for DVT NEUROLOGICAL: Cranial nerves II through XII appear grossly intact, gaze conjugate. Eyes open with noxious stimuli.. Does not track. Positive gag. Positive corneal reflex. Withdraws to pain in all 4 extremities currently. 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 Date of Insertion: Apr 03, 2017 A/P Assessment and Plan Neuro/Psych Post polio syndrome bilateral lower extremity weakness Status epilepticus History of CVATIA with R sided deficits - right lentiform nucleus H/O seizures Anxiety/depression Left maxillary/ethmoid fluid levels question sinusitis 04/07 interpretation EEG - Abnormal EEG due to some mild to moderate slowing, but also some occasional sharps and spike and slow waves seen, but improved from prior EEG's. Clinical correlation. Donjftzars250 milligrams twice a day will be continued. Loaded with fosphenytoin - currently fosphenytoin 200 mg IV every 8 hours. LEevel 13 04/09 Levetiracetam 500 mg IV every 6 hours Lorazepam 2 mg IV every 5 minutes as needed. Seizures Versed drip currently at 7 mg/h. Fentanyl drip currently at 150 mcg an hour, weaning as tolerated. Does have h/o chronic pain. TSH normal-3.0 Random cortisol level only 3.5. Unclear significance as patient had lactic acidemia but also hypertensive at the time. Recheck 04/07 12.3. Cosyntropin test ordered 04/08, had adequate response 04/03 MRI brain-Moderate periventricular white matter changes are evident. There is no restricted diffusion. There is moderate atrophy with dilatation of ventricular sulcal spaces. There are no extra-axial fluid collections appreciated. Posterior fossa is unremarkable. 04/03 MRA brain-negative for major branch occlusion 04/03 CT brain-no acute intracranial process Patient's home meds baclofen 10 mg 3 times a day, tramadol 50 mg every 4 hours as needed and sertraline 50 mg twice a day have been on hold due to concern for serotonin syndrome, seizure activity and rhabdomyolysis. Patient has history of altered mental status secondary to being medication induced. Reported by family member -the patient had discontinued baclofen for approximately 3 months and took her initial dose of baclofen on 04/02 with a TID schedule dosing. MRI brain 04/07 - There is mild periventricular white matter T2 prolongation. A tiny lacunar infarct in the right lentiform nucleus appears old. There is no evidence of intracranial mass or hemorrhage. The brainstem and posterior fossa structures are unremarkable. There is nothing to suggest acute infarction. There is fluid in the left maxillary sinus and occasional ethmoid sinuses. LP - HSV negative, final cx neg. Dr. Martinez has been actively following. Dr. Herr covering weekend, states Dr. Martinez rounding 04/11. Per his documentation 04/08, to remain on versed for few days. Respiratory: Acute hypoxemic respiratory failure [facility] 16/500/04/15/34 Ventilator bundle Maintain O2 sat greater than 92% Albuterol/ipratropium aerosols nebs every 6 hours scheduled, albuterol aerosols every 2 hours when necessary Follow-up chest x-ray 04/08 Cardiovascular: Hypertensive emergency-resolved History of hypertension Hyperlipidemia Congestive heart failure - ejection fraction 55-60% 2009 Labetalol, hydralazine IV , PRN to maintain SBP <160 Serial troponins were negative. Continue metoprolol 25 mg every 6 hours On metoprolol 50 mg sustained release daily at home continue clopidogrel 75 mg by mouth daily/home medication Resumed 04/09 Continue pravastatin 40 mg by mouth daily/home medication for dyslipidemia Renal//FEN: Chronic kidney disease stage IIIB Hypo-magnesium Maintain Moore catheter -- Strict I/Os Monitor urine output Monitor BMP Replete electrolytes as needed Previous Creatinine 12/2016- 1.15, upon admission 2.76, now at baseline Maintain OGT -continue Glucerna with goal rate 50 ml/hr per nutrition's recommendations Lasix 40 mg IV now GI: Esophageal stricture -history of esophageal dilatation GERD Elevated ammonia Constipation Patient is currently on Glucerna 1.5 goal 50 cc per hour per nutrition's recommendations Lansoprazole 30 mg daily GI prophylaxis. On Dexlansoprazole 60 mg times daily at home Docusate sodium/senna 1 tablet twice a day for bowel regimen. polyethylene glycol 17 g twice a day and lactulose 30 cc 4x a day 1 dose of methylnaltrexone 12 MG SUBCUTANEOUS 1 AND 30 CC MINERAL OIL 1 Now having BMs after aggressive above bowel regimen. KUB 04/08 - mild ileus Tolerating tube feeds. Ammonia level Recheck in a.m. 04/09 <10 ID: Escherichia coli UTI Monitor CBC Blood cultures 04/03 - negative Urine culture 04/03 - Escherichia coli, pansensitive Strep pneumococcal antigen 04/03 - negative CSF 04/07 Gram stain, fungal and AFB negative as of 04/08 Recent history of C. difficile colitis. Lactinex tid. Has been on Abx that would cover E coli UTI since 04/03 #8. Now with LP final cultures negative. Will d/c vanc and rocephin. Acyclovir initiated by Dr. Martinez, now discontinued with HSV 1 and 2 negative. . HEME/ONC: History of cervical cancer Normocytic anemia History of right lower extremity DVT - posterior tibial and femoral vein previously on Apixaban Clopidogrel 75 mg daily initially held for LP. Restarted 04/09 Lactate level 1.8 Recheck Dopplers bilateral and right upper lower extremities 04/07 negative for DVT Endocrine: Diabetes mellitus Low cortisol Glucose monitoring per ICU protocol, low dose regimen Novulog every 6 hours Hold metformin thousand milligrams twice a day Prophylaxis: GI Prophylaxis Lansoprazole 30 mg daily DVT Prophylaxis -- SCDs continue heparin 5000 units subcutaneous every [address] Martinez. Lines: Peripheral IVs providing adequate access. Patient's sister updated 04/10 and questions answered. Level II follow-up Minerva Calabrese MD Apr 10, 2017 19:17
[2017-04-10] MEDS: PRAVASTATIN SOD 40 MG TAB PO SCH (20:34)
[2017-04-11] VITALS (24 sets, daily range): BP systolic 143–202; BP diastolic 68–129; PULSE 92–130; RESP 17–28; TEMP 99.5–101.8; O2SAT 90–100
[2017-04-11] MEDS: MIDAZOLAM 100 MG/100 ML INJ 100 ML IV PRN ×3 (00:56→15:01)
[2017-04-11] MEDS: CHLORHEXIDINE GLUCONATE 2 % 1 PACK (2 CLOTHS) TOP SCH (02:33)
[2017-04-11] MEDS: FOSPHENYTOIN INJ 200 MGPE in SODIUM CHLORIDE 0.9% INJ 50 ML IV SCH ×3 (05:49→22:00)
[2017-04-11] MEDS: levETIRAcetam INJ 500 MG in SODIUM CHLORIDE 0.9% INJ 100 ML IV SCH ×3 (05:50→17:04)
[2017-04-11] MEDS: LACTULOSE SYRUP 20 GM/30 ML CUP PO SCH ×3 (05:51→17:03)
[2017-04-11] MEDS: METOCLOPRAMIDE HCL 10 MG/2 ML VIAL IV PUSH SCH ×2 (05:51→12:05)
[2017-04-11] MEDS: METOPROLOL TARTRATE 25 MG TAB PO SCH ×2 (05:51→12:05)
[2017-04-11] MEDS: HEPARIN SODIUM - SQ 10,000 UNITS/ML VIAL SQ SCH ×2 (05:51→12:05)
[2017-04-11] MEDS: INSULIN ASPART SUPPLEMENTAL SCALE SQ SCH ×3 (06:01→17:03)
[2017-04-11 08:22] LABS: AUTOMATED NEUTROPHIL # 8.2 TH/MM3 (1.8-7.7); BASOPHIL % 0.3 % (0.0-2.0); EOSINOPHIL # 0.1 TH/MM3 (0-0.4); EOSINOPHIL % 1.3 % (0.0-4.0); HEMATOCRIT 21.9 % (35.0-46.0); HEMOGLOBIN 7.4 GM/DL (11.6-15.3); LYMPH % 12.1 % (9.0-44.0); LYMPHOCYTE # 1.3 TH/MM3 (1.0-4.8); MEAN CELL VOLUME 87.6 FL (80.0-100.0); MEAN CORPUSCULAR HEMOGLOBIN 29.7 PG (27.0-34.0); MEAN CORPUSCULAR HGB CONC 33.9 % (32.0-36.0); MEAN PLATELET VOLUME 7.4 FL (7.0-11.0); MONO % 7.7 % (0.0-8.0); MONOCYTE # 0.8 TH/MM3 (0-0.9); NEUT % 78.6 % (16.0-70.0); PLATELET COUNT 332 TH/MM3 (150-450); RED BLOOD COUNT 2.49 MIL/MM3 (4.00-5.30); RED CELL DISTRIBUTION WIDTH 15.8 % (11.6-17.2); WHITE BLOOD COUNT 10.4 TH/MM3 (4.0-11.0)
[2017-04-11] MEDS: hydrALAZINE HCL 20 MG/ML VIAL IV PUSH PRN ×2 (08:23→16:09)
[2017-04-11 08:46] LABS: BICARBONATE 22.9 MEQ/L (21.0-32.0); CALCIUM 8.6 MG/DL (8.5-10.1); CREATININE 1.01 MG/DL (0.50-1.00)
[2017-04-11] MEDS: POLYETHYLENE GLYCOL 17 GM PKG PO SCH (09:00)
[2017-04-11] MEDS: DOCUSATE SODIUM 50 MG/SENNA 8.6 MG TAB PO SCH (09:00)
[2017-04-11] MEDS: LACTOBACILLUS ACIDOPHILUS 1 GM PACKET OG-TUBE SCH ×3 (09:00→17:03)
--- NOTE | 2017-04-11 09:56 | HHI.PR ---
Review/Management Diagnosis subclinical status epilepticus. Clinically improved. A little more responsive today. Last EEG significantly improved. Plan Continue current level of cerebyx and keppra I agree with d/c of antibiotics since final csf cx negative Will get repeat EEG tomorrow. Diagnosis/Plan: Subjective Subjective Comments No acute events reported No clinical SZ noted. Active Medications Current Medications Medications (Trade) Dose Ordered Sig/Georgie Route Start Time Stop Time Status Last Admin Fentanyl Citrate 250 ml @ 5 mls/hr TITRATE PRN IV 04/03/17 09:45 04/10/17 12:46 (NS Flush) 2 ml UNSCH PRN IV FLUSH 04/03/17 11:15 04/08/17 08:59 (NS Flush) 2 ml BID IV FLUSH 04/03/17 21:00 04/10/17 20:34 (Tears Naturale Opth Soln) 1 drop TID EACH EYE 04/03/17 13:00 04/10/17 17:12 Miscellaneous Information 1 Q361D XX 04/03/17 11:15 04/03/17 11:15 (Chlorhexidine 2% Cloth) Taper DAILY@04 TOP 04/04/17 04:00 03/31/18 03:59 04/09/17 03:05 (Chlorhexidine 2% Cloth) 3 pack UNSCH PRN TOP 04/03/17 11:15 (Jenn-Colace) 1 tab BID PO 04/03/17 21:00 04/10/17 07:59 (Milk Of Magnesia Liq) 30 ml Q12H PRN PO 04/03/17 11:15 (Senokot) 17.2 mg Q12H PRN PO 04/03/17 11:15 (Dulcolax Supp) 10 mg DAILY PRN RECTAL 04/03/17 11:15 04/08/17 15:19 (D50w (Vial) Inj) 50 ml UNSCH PRN IV PUSH 04/03/17 11:30 (Glucagon Inj) 1 mg UNSCH PRN OTHER 04/03/17 11:30 (Vimpat) 100 mg BID PO 04/03/17 14:15 04/10/17 20:34 (Pravachol) 40 mg HS PO 04/03/17 21:00 04/10/17 20:34 (Trandate Inj) 10 mg Q4H PRN IV PUSH 04/03/17 14:30 (Apresoline Inj) 20 mg Q4H PRN IV PUSH 04/03/17 14:30 04/11/17 08:23 (Lopressor) 25 mg Q6HR PO 04/03/17 21:00 04/11/17 05:51 Potassium Chloride 100 ml @ 50 mls/hr Q2H PRN IV 04/05/17 09:15 Potassium Chloride 100 ml @ 50 mls/hr Q2H PRN IV 04/05/17 09:15 04/05/17 15:57 (K-Lyte Cl Eff) 50 meq UNSCH PRN PO 04/05/17 09:15 Potassium Chloride 100 ml @ 25 mls/hr UNSCH PRN IV 04/05/17 09:15 Potassium Chloride 100 ml @ 50 mls/hr Q2H PRN IV 04/05/17 09:15 Magnesium Sulfate 4 gm/Sodium Chloride 100 ml @ 50 mls/hr UNSCH PRN IV 04/05/17 09:15 (Mag-Ox) 800 mg UNSCH PRN PO 04/05/17 09:15 Magnesium Sulfate 2 gm/Sodium Chloride 100 ml @ 50 mls/hr UNSCH PRN IV 04/05/17 09:15 (K-Phos) 2,000 mg Q4H PRN PO 04/05/17 09:15 Sodium Phosphate 30 mmol/Sodium Chloride 250 ml @ 42 mls/hr UNSCH PRN IV 04/05/17 09:15 (K-Phos) 2,000 mg UNSCH PRN PO/TUBE 04/05/17 09:15 Potassium Phosphate 30 mmol/ Sodium Chloride 260 ml @ 42 mls/hr UNSCH PRN IV 04/05/17 09:15 (Lactinex Pkt) 1 gm TID OG-TUBE 04/05/17 13:00 04/10/17 17:11 (Ativan Inj) 2 mg Q5M PRN IV PUSH 04/05/17 10:45 04/05/17 14:18 Midazolam HCl 100 ml @ 2 mls/hr TITRATE PRN IV 04/05/17 11:15 04/11/17 00:56 (Tylenol 650 Mg/ 20 ml Liq) 650 mg Q6H PRN NG 04/06/17 17:00 04/09/17 11:53 (NovoLOG SUPPLEMENTAL SCALE) 1 Q6HR SQ 04/06/17 18:00 04/11/17 06:01 (Albuterol Neb) 2.5 mg Q2HR NEB PRN NEB 04/06/17 17:00 (Prevacid Odt) 30 mg DAILY NG 04/07/17 09:00 04/10/17 07:59 Levetriacetam 500 mg/Sodium Chloride 105 ml @ 420 mls/hr Q6HR IV 04/07/17 12:00 04/11/17 05:50 (Miralax) 17 gm BID PO 04/07/17 21:00 04/10/17 07:59 (Plavix) 75 mg DAILY PO 04/09/17 09:00 04/10/17 07:59 (Heparin Inj) 5,000 units Q8HR SQ 04/08/17 22:00 04/11/17 05:51 (Peridex 0.12% Liq) 15 ml BID@08,20 MT 04/08/17 20:00 04/10/17 20:34 (Lactulose Liq) 30 ml Q6HR PO 04/08/17 18:00 04/08/17 18:18 Fosphenytoin Sodium 200 mgpe/ Sodium Chloride 54 ml @ 216 mls/hr Q8HR IV 04/09/17 06:00 04/11/17 05:49 (Reglan Inj) 5 mg Q8HR IV PUSH 04/08/17 23:00 04/11/17 05:51 Allergies Allergies Coded Allergies Influenza Virus Vaccines (Unverified Allergy, Intermediate, 02/04/17) egg (Unverified Allergy, Intermediate, 02/04/17) codeine (Unverified Allergy, Mild, 02/04/17) meperidine (Unverified Allergy, Mild, 02/04/17) morphine (Unverified Allergy, Mild, 02/04/17) acetaminophen (Unverified Adverse Reaction, Mild, HEADACHE, 02/04/17) hydrocodone (Unverified Adverse Reaction, Mild, HEADACHE, 02/04/17) Exam I&O / VS Vital Signs Date Time Temp Pulse Resp B/P (MAP) Pulse Ox O2 Delivery O2 Flow Rate FiO2 04/11/17 08:09 99 30 04/11/17 06:00 117 04/11/17 04:16 100 30 04/11/17 04:00 117 04/11/17 04:00 30 04/11/17 04:00 100.3 117 17 156/87 (110) 100 04/11/17 02:00 105 04/11/17 00:21 100 30 04/11/17 00:00 115 04/11/17 00:00 30 04/11/17 00:00 99.5 115 19 165/68 (100) 100 04/10/17 22:00 110 04/10/17 20:00 98.9 111 19 141/68 (92) 100 04/10/17 20:00 30 04/10/17 20:00 111 04/10/17 19:36 100 35 04/10/17 18:00 116 04/10/17 16:00 126 04/10/17 16:00 99.0 126 19 160/73 (102) 98 04/10/17 16:00 30 04/10/17 14:56 97 30 04/10/17 14:00 105 04/10/17 12:00 100 30 04/10/17 12:00 30 04/10/17 12:00 30 04/10/17 12:00 114 04/10/17 10:00 109 Exam Comments sedated, attempts to open eyes to voice PERRL withdraws BLE to tactile stimulation Objective Micro and Labs Laboratory Tests Test 04/11/17 08:05 04/11/17 09:30 White Blood Count 10.4 Red Blood Count 2.49 Hemoglobin 7.4 Hematocrit 21.9 Mean Corpuscular Volume 87.6 Mean Corpuscular Hemoglobin 29.7 Mean Corpuscular Hemoglobin Concent 33.9 Red Cell Distribution Width 15.8 Platelet Count 332 Mean Platelet Volume 7.4 Neutrophils (%) (Auto) 78.6 Lymphocytes (%) (Auto) 12.1 Monocytes (%) (Auto) 7.7 Eosinophils (%) (Auto) 1.3 Basophils (%) (Auto) 0.3 Neutrophils # (Auto) 8.2 Lymphocytes # (Auto) 1.3 Monocytes # (Auto) 0.8 Eosinophils # (Auto) 0.1 Basophils # (Auto) 0.0 CBC Comment AUTO DIFF Differential Comment AUTO DIFF CONFIRMED Platelet Estimate NORMAL Platelet Morphology Comment NORMAL Red Cell Morphology Comment NORMAL Blood Urea Nitrogen 26 Creatinine 1.01 Random Glucose 136 Calcium Level 8.6 Sodium Level 137 Potassium Level 3.8 Chloride Level 105 Carbon Dioxide Level 22.9 Anion Gap 9 Estimat Glomerular Filtration Rate 53 Date/Time Source Procedure Growth Status 04/03/17 08:55 Blood Peripheral Aerobic Blood Culture - Final NO GROWTH IN 5 DAYS Complete 04/03/17 08:55 Blood Peripheral Anaerobic Blood Culture - Final NO GROWTH IN 5 DAYS Complete 04/07/17 09:47 Cerebral Spinal Fluid Lumbar Puncture Fungal Smear - Final NO FUNGAL ELEMENTS SEEN. Resulted 04/07/17 09:47 Cerebral Spinal Fluid Lumbar Puncture Fungal Culture Pending Resulted 04/03/17 09:54 Urine Catheterized Urine Streptococcus pneumoniae Antigen (M - Final PRESUMPTIVE NEGATIVE FOR STREPTOCOCCU... Complete John Martinez MD PhD Apr 11, 2017 09:56
[2017-04-11] MEDS: ACETAMINOPHEN 650 MG/20.3 ML UDC NG PRN (10:37)
[2017-04-11] MEDS: LACOSAMIDE 100 MG TAB PO SCH (10:38)
[2017-04-11] MEDS: CLOPIDOGREL 75 MG TAB PO SCH (10:39)
[2017-04-11] MEDS: LANSOPRAZOLE SOLUTAB 30 MG TAB NG SCH (10:39)
[2017-04-11] MEDS: ARTIFICIAL TEARS OPTH SOLN 15 ML BTL EACH EYE SCH ×3 (10:40→17:03)
[2017-04-11] MEDS: CHLORHEXIDINE 0.12% (ORAL KIT) 15 ML CUP MT SCH ×2 (10:40→20:00)
[2017-04-11] MEDS: SODIUM CHLORIDE 0.9% FLUSH 10 ML FLUSH IV FLUSH SCH (10:40)
[2017-04-11] MEDS: LABETALOL HCL 100 MG/20 ML VIAL IV PUSH PRN ×2 (10:51→14:42)
[2017-04-11] MEDS ORDERED: PROPRANOLOL HCL 20 MG TAB PO SCH (13:30)
[2017-04-11] MEDS: PROPRANOLOL HCL 20 MG TAB PO SCH (13:44)
--- NOTE | 2017-04-11 15:01 | HHI.CCPN ---
Subjective Remarks/Hospital Course This is a 76-year-old female that presented to the ED for evaluation of altered mental status. Per report, according to EMS the patient normally is more alert and has a history of stroke, he was able to speak with the patient's sister who states that she is also power of assistant prosecuting attorney, the patient apparently normally is ambulatory and can carry on a conversation without any difficulty. Per records reviewed, the patient was last seen normal and at her baseline at 1 am. The patient then sat down in her lazy chair, her sister also noted that she started beating her head against a piece of furniture. The patient was noted to have a right frontal contusion upon presentation to the ED .She had a GCS of 7-8 on arrival. The patient's medical history is significant for a recent admission 12/2016 for altered mental status, medication induced. Her past medical history is also significant for a recent history of UTI and C. difficile in addition to her history of having a CVA and reportedly residual effects in the right upper and lower extremity. Laboratory and imaging studies revealed that most likely the patient has a UTI, CT of the brain revealed no abnormality and the patient was noted to have an elevated lactate level. The patient was emergently intubated in the ED, and the patient was noted to be significantly hypertensive and a nicardipine infusion was instituted. Upon entering the ED the patient's blood pressure was noted to be 219/92, Cardizem infusion had been ordered. The patient was noted to have spontaneous movement of the right upper and lower extremity with a gag reflex. Critical care medicine was consulted. 04/04: The patient was weaned off of nicardipine infusion. Normotensive the patient continues on labetalol twice a day scheduled home dosing. EEG attempted last evening however due to patient's movement bilaterally to complete artifact EEG reordered. Fentanyl infusion discontinued for daily sedation vacation approximately 7 hours ago the patient remains nonresponsive. Opens eyes spontaneously, moves limbs spontaneously but does not follow any commands. Brain MRI/MRA, and CT all negative findings. EEG scheduled for a.m.. The patient continues in severe metabolic acidosis, 2 Amps of sodium bicarbonate IV push given this a.m., sodium bicarbonate infusion increased. Lactate is cleared, creatinine is improving, CT of the abdomen and pelvis is pending this afternoon. 04/05 CT report from yesterday shows bladder edema consistent with cystitis. URine culture with GNR Blood cultures NGTD. . Getting EEG now. 04/06: Resting comfortable in bed in no acute distress. No obvious seizure activity. Plan for lumbar puncture in AM. Low-grade temperatures overnight. Tolerating tube feeding at goal. No bowel movement 04/07: Continues EEG has been discontinued. Tmax 100. Currently 99.8. No bowel movement since admission. Tolerating tube feeds at goal. No active seizure activity overnight. 04/08: Tmax 100. Currently 99.9. Became tachycardic with sedation lowered so RN increased midazolam to 9 milligrams an hour. Also fentanyl drip at 250 mcg per hour. No bowel movement since admission. Tolerating tube feedings with only 40 cc residuals. Receiving methylnaltrexone milligrams subcutaneous 1 along with mineral oil and suppository. KUB pending. Patient improved neurological exam. Blinks with my suddenhand movements towards face. Positive gag. Withdraws to pain in all 4 extremities. 04/09 LP results not yet finalized. On versed 7 mg/hr and fentanyl 250 mcg/hr. EEG from 04/08 - no epileptiform features. 04/10 Weaning fentanyl down but remains on versed for seizure suppression. Because she had difficult to control subclinical seizures, will need close EEG monitoring for benzo weaning. Was breathing on PSV for couple of hours day, even on sedation. CSF negative final culture. No Leukocytosis or fever. Will stop antibiotic. Updated sister. Subjective 04/11: no seizures evident on EEG. slightly more awake today, but not following commands. had discussion with Dr. Martinez, will wean versed to 4mg/hr and re- evaluate on EEG tomorrow. Objective Vital Signs Date Time Temp Pulse Resp B/P (MAP) Pulse Ox O2 Delivery O2 Flow Rate FiO2 04/11/17 14:00 103 04/11/17 13:00 18 202/79 (120) 100 04/11/17 12:00 100.0 04/11/17 12:00 30 Intake and Output 04/11/17 04/11/17 04/11/17 07:59 15:59 23:59 Intake Total 1175 ml 41 ml Output Total 1200 ml Balance -25 ml 41 ml Result Diagram: 04/11/17 0805 04/11/17 0805 Imaging Last Impressions Chest X-Ray 04/08/17 0600 Signed Impressions: Service Date/Time: Saturday, April 08, 2017 04:41 - CONCLUSION: No significant interval change. Kd Doty MD Lumbar Puncture Fluoroscopy 04/07/17 0000 Signed Impressions: Service Date/Time: March 09:39 - CONCLUSION: Uncomplicated fluoroscopically guided lumbar puncture. Harris Gamboa MD Brain MRI 04/07/17 0000 Signed Impressions: Service Date/Time: March 10:24 - CONCLUSION: No acute intracranial findings Kali Jerry MD Upper Extremity Ultrasound 04/06/17 0000 Signed Impressions: Service Date/Time: Thursday, April 06, 2017 21:32 - CONCLUSION: 1. No sonographic evidence for right upper extremity DVT. Harris Gamboa MD Lower Extremity Ultrasound 04/06/17 0000 Signed Impressions: Service Date/Time: Thursday, April 06, 2017 21:12 - CONCLUSION: 1. No sonographic evidence for lower extremity DVT. Harris Gamboa MD Abdomen/Pelvis CT 04/04/17 0000 Signed Impressions: Service Date/Time: Tuesday, April 04, 2017 16:05 - CONCLUSION: 1. Mild edema surrounding the urinary bladder, question cystitis. Tong catheter in place. 2. Status post cholecystectomy. 3. Left lower lobe atelectasis. 4. Nasogastric tube tip at the gastroesophageal junction. Kd Doty MD Neck Magnetic Resonance Angiography 04/03/17 1119 Signed Impressions: Service Date/Time: Monday, April 03, 2017 13:11 - CONCLUSION: Negative for hemodynamically significant carotid stenosis Roque Tripathi MD FACR Head Magnetic Resonance Angiography 04/03/17 1119 Signed Impressions: Service Date/Time: Monday, April 03, 2017 13:11 - CONCLUSION: Negative for major branch vessel occlusion. Roque Tripathi MD FACR Head CT 04/03/17 0851 Signed Impressions: Service Date/Time: Monday, April 03, 2017 09:02 - CONCLUSION: Negative for acute process.. Roque Tripathi MD FACR Cervical Spine CT 04/03/17 0000 Signed Impressions: Service Date/Time: Monday, April 03, 2017 09:07 - CONCLUSION: Fusion as above, negative for fracture. Roque Tripathi MD FACR Objective Remarks GENERAL: 76-year-old female currently orotracheally intubated SKIN: Warm and dry. HEAD: Atraumatic. Normocephalic. EYES: R periorbital ecchmosis. Pupils equal and round 1-2 mm bilaterally. No scleral icterus. No injection or drainage. ENT: No nasal bleeding or discharge. Mucous membranes pink and moist. NECK: Trachea midline. No JVD. CARDIOVASCULAR: RRR. RESPIRATORY: No accessory muscle use. Breath sounds equal bilaterally. GASTROINTESTINAL: Abdomen soft, non-tender, nondistended. No guarding. MUSCULOSKELETAL: Right upper extremity with 2+ edema and erythema. Negative Doppler ultrasound 04/06 for DVT NEUROLOGICAL: Cranial nerves II through XII appear grossly intact, gaze conjugate. Eyes open with noxious stimuli.. Does not track. Positive gag. Positive corneal reflex. Withdraws to pain in all 4 extremities currently. 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 A/P Assessment and Plan Assessment: 76yF with subclinical status which has been very difficult to control. now on multiple AEDs and finally without evidence of ongoing status. will slowly wean versed today, repeat EEG tomorrow, and then attempt to wean and wake tomorrow if negative EEG. continue supportive care. 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 Clinical correlation. [id number] milligrams twice a day will be continued. Loaded with fosphenytoin - currently fosphenytoin 200 mg IV every 8 hours. Leevel 13 04/09 Levetiracetam 500 mg IV every 6 hours Lorazepam 2 mg IV every 5 minutes as needed. Seizures Versed drip currently at 7 mg/h: Wean to 4mg/hr today. TSH normal-3.0 Random cortisol level only 3.5. Unclear significance as patient had lactic acidemia but also hypertensive at the time. Recheck 04/07 12.3. Cosyntropin test ordered 04/08, had adequate response 04/03 MRI brain-Moderate periventricular white matter changes are evident. There is no restricted diffusion. There is moderate atrophy with dilatation of ventricular sulcal spaces. There are no extra-axial fluid collections appreciated. Posterior fossa is unremarkable. 04/03 MRA brain-negative for major branch occlusion 04/03 CT brain-no acute intracranial process MRI brain 04/07 - There is mild periventricular white matter T2 prolongation. A tiny lacunar infarct in the right lentiform nucleus appears old. There is no evidence of intracranial mass or hemorrhage. The brainstem and posterior fossa structures are unremarkable. There is nothing to suggest acute infarction. There is fluid in the left maxillary sinus and occasional ethmoid sinuses. Patient's home meds baclofen 10 mg 3 times a day, tramadol 50 mg every 4 hours as needed and sertraline 50 mg twice a day have been on hold due to concern for serotonin syndrome, seizure activity and rhabdomyolysis. Patient has history of altered mental status secondary to being medication induced. Reported by family member -the patient had discontinued baclofen for approximately 3 months and took her initial dose of baclofen on 04/02 with a TID schedule dosing. LP - HSV negative, final cx neg. Dr. Martinez actively following. Respiratory: Acute hypoxemic respiratory failure PRVC 16/500/04/15/34 Ventilator bundle Maintain O2 sat greater than 92% Albuterol/ipratropium aerosols nebs every 6 hours scheduled, albuterol aerosols every 2 hours when necessary Follow-up chest x-ray 04/08 no SBTs until ready to fully wean from versed for ongoing status. Cardiovascular: Hypertensive emergency-resolved History of hypertension Hyperlipidemia Congestive heart failure - ejection fraction 55-60% 2009 Labetalol, hydralazine IV , PRN to maintain SBP <160 Serial troponins were negative. transition from metoprolol to propranolol 40mg po q6h given hypertension and tachycardia. On metoprolol 50 mg sustained release daily at home continue clopidogrel 75 mg by mouth daily/home medication Resumed 04/09 Continue pravastatin 40 mg by mouth daily/home medication for dyslipidemia Renal//FEN: Chronic kidney disease stage IIIB Hypo-magnesium d/c tong catheter. -- Strict I/Os Monitor urine output Monitor BMP Replete electrolytes as needed Previous Creatinine 12/2016- 1.15, upon admission 2.76, now at baseline Maintain OGT -continue Glucerna with goal rate 50 ml/hr per nutrition's recommendations GI: Esophageal stricture -history of esophageal dilatation GERD Elevated ammonia Constipation- resolved. Patient is currently on Glucerna 1.5 goal 50 cc per hour per nutrition's recommendations Lansoprazole 30 mg daily GI prophylaxis. On Dexlansoprazole 60 mg times daily at home Docusate sodium/senna 1 tablet twice a day for bowel regimen. polyethylene glycol 17 g twice a day and lactulose 30 cc 4x a day 1 dose of methylnaltrexone 12 MG SUBCUTANEOUS 1 AND 30 CC MINERAL OIL 1 Now having BMs after aggressive above bowel regimen. KUB 04/08 - mild ileus Ammonia level Recheck in a.m. 04/09 <10 Tolerating tube feeds. ID: Escherichia coli UTI Monitor CBC Blood cultures 04/03 - negative Urine culture 04/03 - Escherichia coli, pansensitive Strep pneumococcal antigen 04/03 - negative CSF 04/07 Gram stain, fungal and AFB negative as of 04/08 Recent history of C. difficile colitis. Lactinex tid. off abx. monitor. reculture for fever. HEME/ONC: History of cervical cancer Normocytic anemia History of right lower extremity DVT - posterior tibial and femoral vein previously on Apixaban Clopidogrel 75 mg daily initially held for LP. Restarted 04/09 Lactate level 1.8 Recheck Dopplers bilateral and right upper lower extremities 04/07 negative for DVT Endocrine: Diabetes mellitus Low cortisol Glucose monitoring per ICU protocol, low dose regimen Novulog every 6 hours Hold metformin thousand milligrams twice a day Prophylaxis: GI Prophylaxis Lansoprazole 30 mg daily DVT Prophylaxis -- SCDs continue heparin 5000 units subcutaneous every [address] Martinez. Lines: Peripheral IVs providing adequate access. Patient's sister updated 04/10 and questions answered. Yogesh Guzman MD Apr 11, 2017 15:01
[2017-04-11] MEDS: PRAVASTATIN SOD 40 MG TAB PO SCH (21:00)
[2017-04-12] VITALS (18 sets, daily range): BP systolic 154–190; BP diastolic 72–119; PULSE 87–108; RESP 19–31; TEMP 98–100.7; O2SAT 93–100
[2017-04-12] MEDS: POLYETHYLENE GLYCOL 17 GM PKG PO SCH ×3 (01:36→19:53)
[2017-04-12] MEDS: DOCUSATE SODIUM 50 MG/SENNA 8.6 MG TAB PO SCH ×3 (01:36→19:53)
[2017-04-12] MEDS: LACTULOSE SYRUP 20 GM/30 ML CUP PO SCH ×5 (01:37→23:19)
[2017-04-12] MEDS: HEPARIN SODIUM - SQ 10,000 UNITS/ML VIAL SQ SCH ×4 (01:37→23:17)
[2017-04-12] MEDS: METOCLOPRAMIDE HCL 10 MG/2 ML VIAL IV PUSH SCH ×4 (01:39→23:17)
[2017-04-12] MEDS: LACOSAMIDE 100 MG TAB PO SCH ×3 (01:40→19:52)
[2017-04-12] MEDS: SODIUM CHLORIDE 0.9% FLUSH 10 ML FLUSH IV FLUSH SCH ×3 (01:41→19:52)
[2017-04-12] MEDS: CHLORHEXIDINE GLUCONATE 2 % 1 PACK (2 CLOTHS) TOP SCH (04:00)
[2017-04-12] MEDS: PROPRANOLOL HCL 20 MG TAB PO SCH ×5 (04:02→19:52)
[2017-04-12] MEDS: INSULIN ASPART SUPPLEMENTAL SCALE SQ SCH ×5 (06:00→23:21)
[2017-04-12] MEDS: levETIRAcetam INJ 500 MG in SODIUM CHLORIDE 0.9% INJ 100 ML IV SCH ×6 (06:48→23:17)
--- NOTE | 2017-04-12 07:47 | HHI.PR ---
Review/Management Diagnosis subclinical status epilepticus. Clinically improved. More responsive this am as versed is reduced. Plan Continue current level of cerebyx and keppra and vimpat I agree with d/c of antibiotics since final csf cx negative Will get repeat EEG this am and if stable with no or few epileptiform discharges , recommend continue to wean off versed. Will order repeat phenytoin level this am Diagnosis/Plan: Subjective Subjective Comments Versed has been reduced to 4 mg/hr No clinical seizures have been noted. Continues on cerebyx, keppra and vimpat Active Medications Current Medications Medications (Trade) Dose Ordered Sig/Georgie Route Start Time Stop Time Status Last Admin Fentanyl Citrate 250 ml @ 5 mls/hr TITRATE PRN IV 04/03/17 09:45 04/10/17 12:46 (NS Flush) 2 ml UNSCH PRN IV FLUSH 04/03/17 11:15 04/08/17 08:59 (NS Flush) 2 ml BID IV FLUSH 04/03/17 21:00 04/12/17 01:41 (Tears Naturale Opth Soln) 1 drop TID EACH EYE 04/03/17 13:00 04/11/17 17:03 Miscellaneous Information 1 Q361D XX 04/03/17 11:15 04/03/17 11:15 (Chlorhexidine 2% Cloth) Taper DAILY@04 TOP 04/04/17 04:00 03/31/18 03:59 04/12/17 04:00 (Chlorhexidine 2% Cloth) 3 pack UNSCH PRN TOP 04/03/17 11:15 (Jenn-Colace) 1 tab BID PO 04/03/17 21:00 04/12/17 01:36 (Milk Of Magnesia Liq) 30 ml Q12H PRN PO 04/03/17 11:15 (Senokot) 17.2 mg Q12H PRN PO 04/03/17 11:15 (Dulcolax Supp) 10 mg DAILY PRN RECTAL 04/03/17 11:15 04/08/17 15:19 (D50w (Vial) Inj) 50 ml UNSCH PRN IV PUSH 04/03/17 11:30 (Glucagon Inj) 1 mg UNSCH PRN OTHER 04/03/17 11:30 (Vimpat) 100 mg BID PO 04/03/17 14:15 04/12/17 01:40 (Pravachol) 40 mg HS PO 04/03/17 21:00 04/11/17 21:00 (Trandate Inj) 10 mg Q4H PRN IV PUSH 04/03/17 14:30 04/11/17 14:42 (Apresoline Inj) 20 mg Q4H PRN IV PUSH 04/03/17 14:30 04/11/17 16:09 (Lopressor) 25 mg Q6HR PO 04/03/17 21:00 Future Hold 04/11/17 12:05 Potassium Chloride 100 ml @ 50 mls/hr Q2H PRN IV 04/05/17 09:15 Potassium Chloride 100 ml @ 50 mls/hr Q2H PRN IV 04/05/17 09:15 04/05/17 15:57 (K-Lyte Cl Eff) 50 meq UNSCH PRN PO 04/05/17 09:15 Potassium Chloride 100 ml @ 25 mls/hr UNSCH PRN IV 04/05/17 09:15 Potassium Chloride 100 ml @ 50 mls/hr Q2H PRN IV 04/05/17 09:15 Magnesium Sulfate 4 gm/Sodium Chloride 100 ml @ 50 mls/hr UNSCH PRN IV 04/05/17 09:15 (Mag-Ox) 800 mg UNSCH PRN PO 04/05/17 09:15 Magnesium Sulfate 2 gm/Sodium Chloride 100 ml @ 50 mls/hr UNSCH PRN IV 04/05/17 09:15 (K-Phos) 2,000 mg Q4H PRN PO 04/05/17 09:15 Sodium Phosphate 30 mmol/Sodium Chloride 250 ml @ 42 mls/hr UNSCH PRN IV 04/05/17 09:15 (K-Phos) 2,000 mg UNSCH PRN PO/TUBE 04/05/17 09:15 Potassium Phosphate 30 mmol/ Sodium Chloride 260 ml @ 42 mls/hr UNSCH PRN IV 04/05/17 09:15 (Lactinex Pkt) 1 gm TID OG-TUBE 04/05/17 13:00 04/11/17 17:03 (Ativan Inj) 2 mg Q5M PRN IV PUSH 04/05/17 10:45 04/05/17 14:18 (Tylenol 650 Mg/ 20 ml Liq) 650 mg Q6H PRN NG 04/06/17 17:00 04/11/17 10:37 (NovoLOG SUPPLEMENTAL SCALE) 1 Q6HR SQ 04/06/17 18:00 04/12/17 06:00 (Albuterol Neb) 2.5 mg Q2HR NEB PRN NEB 04/06/17 17:00 (Prevacid Odt) 30 mg DAILY NG 04/07/17 09:00 04/11/17 10:39 Levetriacetam 500 mg/Sodium Chloride 105 ml @ 420 mls/hr Q6HR IV 04/07/17 12:00 04/12/17 06:48 (Miralax) 17 gm BID PO 04/07/17 21:00 04/12/17 01:36 (Plavix) 75 mg DAILY PO 04/09/17 09:00 04/11/17 10:39 (Heparin Inj) 5,000 units Q8HR SQ 04/08/17 22:00 04/12/17 06:49 (Peridex 0.12% Liq) 15 ml BID@08,20 MT 04/08/17 20:00 04/11/17 20:00 (Lactulose Liq) 30 ml Q6HR PO 04/08/17 18:00 04/12/17 06:48 Fosphenytoin Sodium 200 mgpe/ Sodium Chloride 54 ml @ 216 mls/hr Q8HR IV 04/09/17 06:00 04/11/17 22:00 (Reglan Inj) 5 mg Q8HR IV PUSH 04/08/17 23:00 04/12/17 06:48 (Inderal) 40 mg Q6H PO 04/11/17 13:30 04/12/17 04:03 Midazolam HCl 100 ml @ 4 mls/hr TITRATE PRN IV 04/11/17 15:00 04/11/17 15:01 Allergies Allergies Coded Allergies Influenza Virus Vaccines (Unverified Allergy, Intermediate, 02/04/17) egg (Unverified Allergy, Intermediate, 02/04/17) codeine (Unverified Allergy, Mild, 02/04/17) meperidine (Unverified Allergy, Mild, 02/04/17) morphine (Unverified Allergy, Mild, 02/04/17) acetaminophen (Unverified Adverse Reaction, Mild, HEADACHE, 02/04/17) hydrocodone (Unverified Adverse Reaction, Mild, HEADACHE, 02/04/17) Exam I&O / VS Vital Signs Date Time Temp Pulse Resp B/P (MAP) Pulse Ox O2 Delivery O2 Flow Rate FiO2 04/12/17 06:00 95 04/12/17 04:33 95 30 04/12/17 04:00 100.7 94 21 154/95 (114) 95 04/12/17 04:00 40 04/12/17 04:00 94 04/12/17 02:00 108 04/12/17 00:34 100 30 04/12/17 00:00 102 04/12/17 00:00 40 04/12/17 00:00 100.6 102 19 157/72 (100) 94 04/11/17 22:00 104 04/11/17 20:00 40 04/11/17 20:00 100.5 103 20 90 04/11/17 20:00 103 04/11/17 19:33 100 30 04/11/17 18:00 102 04/11/17 16:00 94 04/11/17 16:00 99.6 94 20 187/129 (148) 100 04/11/17 16:00 30 04/11/17 15:32 100 30 04/11/17 15:00 92 19 169/83 (111) 100 04/11/17 14:00 103 04/11/17 14:00 103 21 197/81 (119) 100 04/11/17 13:00 103 18 202/79 (120) 100 04/11/17 12:00 100.0 110 18 185/77 (113) 100 04/11/17 12:00 110 04/11/17 12:00 30 04/11/17 11:00 115 20 173/74 (107) 100 04/11/17 11:00 100 30 04/11/17 10:00 130 28 188/86 (120) 100 04/11/17 10:00 130 04/11/17 09:40 130 28 144/79 (100) 100 04/11/17 09:08 130 25 143/69 (93) 99 04/11/17 08:09 99 30 04/11/17 08:00 101.8 115 19 177/77 (110) 99 04/11/17 08:00 115 04/11/17 08:00 30 Exam Comments More responsive this am. opens eyes to voice and does follow commands PERRL withdraws BLE to tactile stimulation Objective Micro and Labs Laboratory Tests Test 04/11/17 08:05 04/11/17 09:30 White Blood Count 10.4 Red Blood Count 2.49 Hemoglobin 7.4 Hematocrit 21.9 Mean Corpuscular Volume 87.6 Mean Corpuscular Hemoglobin 29.7 Mean Corpuscular Hemoglobin Concent 33.9 Red Cell Distribution Width 15.8 Platelet Count 332 Mean Platelet Volume 7.4 Neutrophils (%) (Auto) 78.6 Lymphocytes (%) (Auto) 12.1 Monocytes (%) (Auto) 7.7 Eosinophils (%) (Auto) 1.3 Basophils (%) (Auto) 0.3 Neutrophils # (Auto) 8.2 Lymphocytes # (Auto) 1.3 Monocytes # (Auto) 0.8 Eosinophils # (Auto) 0.1 Basophils # (Auto) 0.0 CBC Comment AUTO DIFF Differential Comment AUTO DIFF CONFIRMED Platelet Estimate NORMAL Platelet Morphology Comment NORMAL Red Cell Morphology Comment NORMAL Blood Urea Nitrogen 26 Creatinine 1.01 Random Glucose 136 Calcium Level 8.6 Sodium Level 137 Potassium Level 3.8 Chloride Level 105 Carbon Dioxide Level 22.9 Anion Gap 9 Estimat Glomerular Filtration Rate 53 Stool C. difficile Toxin (PCR) NEGATIVE Stl C. difficile Toxin Epiderm 027 PRESUMPTIVE NEGATIVE Date/Time Source Procedure Growth Status 04/11/17 16:54 Blood Peripheral Aerobic Blood Culture Pending Received 04/11/17 16:54 Blood Peripheral Anaerobic Blood Culture Pending Received 04/07/17 09:47 Cerebral Spinal Fluid Lumbar Puncture Fungal Smear - Final NO FUNGAL ELEMENTS SEEN. Resulted 04/07/17 09:47 Cerebral Spinal Fluid Lumbar Puncture Fungal Culture Pending Resulted 04/03/17 09:54 Urine Catheterized Urine Streptococcus pneumoniae Antigen (M - Final PRESUMPTIVE NEGATIVE FOR STREPTOCOCCU... Complete John Martinez MD PhD Apr 12, 2017 07:47
[2017-04-12] MEDS: LANSOPRAZOLE SOLUTAB 30 MG TAB NG SCH (08:15)
[2017-04-12] MEDS: CLOPIDOGREL 75 MG TAB PO SCH (08:15)
[2017-04-12] MEDS: CHLORHEXIDINE 0.12% (ORAL KIT) 15 ML CUP MT SCH ×2 (08:16→19:52)
[2017-04-12] MEDS: ARTIFICIAL TEARS OPTH SOLN 15 ML BTL EACH EYE SCH ×3 (08:17→18:00)
[2017-04-12] MEDS: LACTOBACILLUS ACIDOPHILUS 1 GM PACKET OG-TUBE SCH ×3 (09:00→18:01)
[2017-04-12 09:45] LABS: CALCIUM 8.7 MG/DL (8.5-10.1); CREATININE 0.93 MG/DL (0.50-1.00)
[2017-04-12] MEDS: MIDAZOLAM 100 MG/100 ML INJ 100 ML IV PRN (10:50)
[2017-04-12 10:56] LABS: HEMATOCRIT 21.6 % (35.0-46.0); HEMOGLOBIN 7.2 GM/DL (11.6-15.3); MEAN CELL VOLUME 88.6 FL (80.0-100.0); MEAN CORPUSCULAR HEMOGLOBIN 29.7 PG (27.0-34.0); MEAN CORPUSCULAR HGB CONC 33.5 % (32.0-36.0); PLATELET COUNT 327 TH/MM3 (150-450); RED BLOOD COUNT 2.44 MIL/MM3 (4.00-5.30); RED CELL DISTRIBUTION WIDTH 15.8 % (11.6-17.2); WHITE BLOOD COUNT 14.2 TH/MM3 (4.0-11.0)
[2017-04-12] MEDS: FOSPHENYTOIN INJ 200 MGPE in SODIUM CHLORIDE 0.9% INJ 50 ML IV SCH ×2 (15:00→23:18)
--- NOTE | 2017-04-12 16:30 | MG ---
cc: CCList Sex: F DATE OF STUDY: 04/12/2017 Test: TECHNIQUE: 17 channel EEG. DESCRIPTION The background rhythm reveals initially an alpha rhythm frequency of 8 Hz, amplitude is 20 microvolts. There is some slowing in the theta range at 5-6 Hz. There are no epileptiform discharges. There are no lateralizing features seen. There is some muscle artifact present. Photic stimulation results in a normal driving response. INTERPRETATION This is a normal EEG. MD CHINA Rascon/CYNDY /3:36 PM /4:08 PM
[2017-04-12 17:50] LABS: CALIFORNIA ENCEPH AB IGG <1:4 (<1:4); CALIFORNIA ENCEPH AB IGM <1:4 (<1:4); EAST EQUINE ENCEPH AB IGG <1:4 (<1:4); EAST EQUINE ENCEPH AB IGM <1:4 (<1:4); ST LOUIS ENCEPH AB IGG <1:4 (<1:4); ST LOUIS ENCEPH AB IGM <1:4 (<1:4); WEST EQUINE ENCEPH AB IGG <1:4 (<1:4); WEST EQUINE ENCEPH AB IGM <1:4 (<1:4)
--- NOTE | 2017-04-12 19:44 | HHI.CCPN ---
Subjective Remarks/Hospital Course This is a 76-year-old female that presented to the ED for evaluation of altered mental status. Per report, according to EMS the patient normally is more alert and has a history of stroke, he was able to speak with the patient's sister who states that she is also power of mergers and acquisitions attorney, the patient apparently normally is ambulatory and can carry on a conversation without any difficulty. Per records reviewed, the patient was last seen normal and at her baseline at 1 am. The patient then sat down in her lazy chair, her sister also noted that she started beating her head against a piece of furniture. The patient was noted to have a right frontal contusion upon presentation to the ED .She had a GCS of 7-8 on arrival. The patient's medical history is significant for a recent admission 12/2016 for altered mental status, medication induced. Her past medical history is also significant for a recent history of UTI and C. difficile in addition to her history of having a CVA and reportedly residual effects in the right upper and lower extremity. Laboratory and imaging studies revealed that most likely the patient has a UTI, CT of the brain revealed no abnormality and the patient was noted to have an elevated lactate level. The patient was emergently intubated in the ED, and the patient was noted to be significantly hypertensive and a nicardipine infusion was instituted. Upon entering the ED the patient's blood pressure was noted to be 219/92, Cardizem infusion had been ordered. The patient was noted to have spontaneous movement of the right upper and lower extremity with a gag reflex. Critical care medicine was consulted. 04/04: The patient was weaned off of nicardipine infusion. Normotensive the patient continues on labetalol twice a day scheduled home dosing. EEG attempted last evening however due to patient's movement bilaterally to complete artifact EEG reordered. Fentanyl infusion discontinued for daily sedation vacation approximately 7 hours ago the patient remains nonresponsive. Opens eyes spontaneously, moves limbs spontaneously but does not follow any commands. Brain MRI/MRA, and CT all negative findings. EEG scheduled for a.m.. The patient continues in severe metabolic acidosis, 2 Amps of sodium bicarbonate IV push given this a.m., sodium bicarbonate infusion increased. Lactate is cleared, creatinine is improving, CT of the abdomen and pelvis is pending this afternoon. 04/05 CT report from yesterday shows bladder edema consistent with cystitis. URine culture with GNR Blood cultures NGTD. . Getting EEG now. 04/06: Resting comfortable in bed in no acute distress. No obvious seizure activity. Plan for lumbar puncture in AM. Low-grade temperatures overnight. Tolerating tube feeding at goal. No bowel movement 04/07: Continues EEG has been discontinued. Tmax 100. Currently 99.8. No bowel movement since admission. Tolerating tube feeds at goal. No active seizure activity overnight. 04/08: Tmax 100. Currently 99.9. Became tachycardic with sedation lowered so RN increased midazolam to 9 milligrams an hour. Also fentanyl drip at 250 mcg per hour. No bowel movement since admission. Tolerating tube feedings with only 40 cc residuals. Receiving methylnaltrexone milligrams subcutaneous 1 along with mineral oil and suppository. KUB pending. Patient improved neurological exam. Blinks with my suddenhand movements towards face. Positive gag. Withdraws to pain in all 4 extremities. 04/09 LP results not yet finalized. On versed 7 mg/hr and fentanyl 250 mcg/hr. EEG from 04/08 - no epileptiform features. 04/10 Weaning fentanyl down but remains on versed for seizure suppression. Because she had difficult to control subclinical seizures, will need close EEG monitoring for benzo weaning. Was breathing on PSV for couple of hours day, even on sedation. CSF negative final culture. No Leukocytosis or fever. Will stop antibiotic. Updated sister. 04/11: no seizures evident on EEG. slightly more awake today, but not following commands. had discussion with Dr. Martinez, will wean versed to 4mg/hr and re- evaluate on EEG tomorrow. Subjective 04/12: no seizures on EEG. ok to wean versed to off per Dr. Martinez. will work on waking and weaning mechanical ventilation. Objective Vital Signs Date Time Temp Pulse Resp B/P (MAP) Pulse Ox O2 Delivery O2 Flow Rate FiO2 04/12/17 18:00 94 04/12/17 16:45 40 04/12/17 16:28 93 04/12/17 16:00 98.1 31 159/119 (132) Intake and Output 04/12/17 04/12/17 04/13/17 08:00 16:00 00:00 Intake Total 985 ml 655 ml Output Total 600 ml 600 ml Balance 385 ml 55 ml Result Diagram: 04/12/17 1015 04/12/17 0845 Imaging Last Impressions Chest X-Ray 04/08/17 0600 Signed Impressions: Service Date/Time: Saturday, April 08, 2017 04:41 - CONCLUSION: No significant interval change. Kd Doty MD Lumbar Puncture Fluoroscopy 04/07/17 0000 Signed Impressions: Service Date/Time: March 09:39 - CONCLUSION: Uncomplicated fluoroscopically guided lumbar puncture. Harris Gamboa MD Brain MRI 04/07/17 0000 Signed Impressions: Service Date/Time: March 10:24 - CONCLUSION: No acute intracranial findings Kali Jerry MD Upper Extremity Ultrasound 04/06/17 0000 Signed Impressions: Service Date/Time: Thursday, April 06, 2017 21:32 - CONCLUSION: 1. No sonographic evidence for right upper extremity DVT. Harris Gamboa MD Lower Extremity Ultrasound 04/06/17 0000 Signed Impressions: Service Date/Time: Thursday, April 06, 2017 21:12 - CONCLUSION: 1. No sonographic evidence for lower extremity DVT. Harris Gamboa MD Abdomen/Pelvis CT 04/04/17 0000 Signed Impressions: Service Date/Time: Tuesday, April 04, 2017 16:05 - CONCLUSION: 1. Mild edema surrounding the urinary bladder, question cystitis. Moore catheter in place. 2. Status post cholecystectomy. 3. Left lower lobe atelectasis. 4. Nasogastric tube tip at the gastroesophageal junction. Kd Doty MD Neck Magnetic Resonance Angiography 04/03/17 1119 Signed Impressions: Service Date/Time: Monday, April 03, 2017 13:11 - CONCLUSION: Negative for hemodynamically significant carotid stenosis Roque Tripathi MD FACR Head Magnetic Resonance Angiography 04/03/17 1119 Signed Impressions: Service Date/Time: Monday, April 03, 2017 13:11 - CONCLUSION: Negative for major branch vessel occlusion. Roque Tripathi MD FACR Head CT 04/03/17 0851 Signed Impressions: Service Date/Time: Monday, April 03, 2017 09:02 - CONCLUSION: Negative for acute process.. Roque Tripathi MD FACR Cervical Spine CT 04/03/17 0000 Signed Impressions: Service Date/Time: Monday, April 03, 2017 09:07 - CONCLUSION: Fusion as above, negative for fracture. Roque Tripathi MD FACR Objective Remarks GENERAL: 76-year-old female currently orotracheally intubated SKIN: Warm and dry. HEAD: Atraumatic. Normocephalic. EYES: R periorbital ecchmosis. Pupils equal and round 1-2 mm bilaterally. No scleral icterus. No injection or drainage. ENT: No nasal bleeding or discharge. Mucous membranes pink and moist. NECK: Trachea midline. No JVD. CARDIOVASCULAR: RRR. RESPIRATORY: No accessory muscle use. Breath sounds equal bilaterally. GASTROINTESTINAL: Abdomen soft, non-tender, nondistended. No guarding. MUSCULOSKELETAL: Right upper extremity with 2+ edema and erythema. Negative Doppler ultrasound 04/06 for DVT NEUROLOGICAL: Cranial nerves II through XII appear grossly intact, gaze conjugate. Eyes open with noxious stimuli.. Does not track. Positive gag. Positive corneal reflex. Withdraws to pain in all 4 extremities currently. 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 A/P Assessment and Plan Assessment: 76yF with subclinical status which has been very difficult to control. now on multiple AEDs and finally without evidence of ongoing status. wean sedation and start weaning mechanical ventilation. 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 Clinical correlation. [id number] milligrams twice a day will be continued. Loaded with fosphenytoin - currently fosphenytoin 200 mg IV every 8 hours. Leevel 13 04/09 Levetiracetam 500 mg IV every 6 hours Lorazepam 2 mg IV every 5 minutes as needed. Seizures d/c versed drip. start precedex for weaning. TSH normal-3.0 Random cortisol level only 3.5. Unclear significance as patient had lactic acidemia but also hypertensive at the time. Recheck 04/07 12.3. Cosyntropin test ordered 04/08, had adequate response 04/03 MRI brain-Moderate periventricular white matter changes are evident. There is no restricted diffusion. There is moderate atrophy with dilatation of ventricular sulcal spaces. There are no extra-axial fluid collections appreciated. Posterior fossa is unremarkable. 04/03 MRA brain-negative for major branch occlusion 04/03 CT brain-no acute intracranial process MRI brain 04/07 - There is mild periventricular white matter T2 prolongation. A tiny lacunar infarct in the right lentiform nucleus appears old. There is no evidence of intracranial mass or hemorrhage. The brainstem and posterior fossa structures are unremarkable. There is nothing to suggest acute infarction. There is fluid in the left maxillary sinus and occasional ethmoid sinuses. Patient's home meds baclofen 10 mg 3 times a day, tramadol 50 mg every 4 hours as needed and sertraline 50 mg twice a day have been on hold due to concern for serotonin syndrome, seizure activity and rhabdomyolysis. Patient has history of altered mental status secondary to being medication induced. Reported by family member -the patient had discontinued baclofen for approximately 3 months and took her initial dose of baclofen on 04/02 with a TID schedule dosing. LP - HSV negative, final cx neg. Dr. Martinez actively following. Respiratory: Acute hypoxemic [facility] failure [facility] Ventilator bundle Maintain O2 sat greater than 92% Albuterol/ipratropium aerosols nebs every 6 hours scheduled, albuterol aerosols every 2 hours when necessary start SBTs. Cardiovascular: Hypertensive emergency-resolved History of hypertension Hyperlipidemia Congestive heart failure - ejection fraction 55-60% 2009 Labetalol, hydralazine IV , PRN to maintain SBP <160 Serial troponins were negative. propranolol 40mg po q6h given hypertension and tachycardia. On metoprolol 50 mg sustained release daily at home continue clopidogrel 75 mg by mouth daily/home medication Resumed 04/09 Continue pravastatin 40 mg by mouth daily/home medication for dyslipidemia add clonidine 0.2mg po q8hr. Renal//FEN: Chronic kidney disease stage IIIB Hypo-magnesium Monitor urine output Monitor BMP Replete electrolytes as needed Previous Creatinine 12/2016- 1.15, upon admission 2.76, now at baseline Maintain OGT -continue Glucerna with goal rate 50 ml/hr per nutrition's recommendations GI: Esophageal stricture -history of esophageal dilatation GERD Elevated ammonia Constipation- resolved. Patient is currently on Glucerna 1.5 goal 50 cc per hour per nutrition's recommendations Lansoprazole 30 mg daily GI prophylaxis. On Dexlansoprazole 60 mg times daily at home Docusate sodium/senna 1 tablet twice a day for bowel regimen. polyethylene glycol 17 g twice a day and lactulose 30 cc 4x a day 1 dose of methylnaltrexone 12 MG SUBCUTANEOUS 1 AND 30 CC MINERAL OIL 1 Now having BMs after aggressive above bowel regimen. KUB 04/08 - mild ileus Ammonia level Recheck in a.m. 04/09 <10 Tolerating tube feeds. ID: Escherichia coli UTI Monitor CBC Blood cultures 04/03 - negative Urine culture 04/03 - Escherichia coli, pansensitive Strep pneumococcal antigen 04/03 - negative CSF 04/07 Gram stain, fungal and AFB negative as of 04/08 Recent history of C. difficile colitis. Lactinex tid. off abx. monitor. reculture for fever. HEME/ONC: History of cervical cancer Normocytic anemia History of right lower extremity DVT - posterior tibial and femoral vein previously on Apixaban Clopidogrel 75 mg daily initially held for LP. Restarted 04/09 Lactate level 1.8 Recheck Dopplers bilateral and right upper lower extremities 04/07 negative for DVT Endocrine: Diabetes mellitus Low cortisol Glucose monitoring per ICU protocol, low dose regimen Novulog every 6 hours Hold metformin thousand milligrams twice a day Prophylaxis: GI Prophylaxis Lansoprazole 30 mg daily DVT Prophylaxis -- SCDs continue heparin 5000 units subcutaneous every [address] Martinez. Lines: Peripheral IVs providing adequate access. Yogesh Guzman MD Apr 12, 2017 19:44
[2017-04-12] MEDS: PRAVASTATIN SOD 40 MG TAB PO SCH (19:52)
[2017-04-12] MEDS: hydrALAZINE HCL 20 MG/ML VIAL IV PUSH PRN (19:52)
[2017-04-12] MEDS: cloNIDine HCL 0.2 MG TAB PO SCH (23:18)
[2017-04-13] VITALS (22 sets, daily range): BP systolic 117–166; BP diastolic 63–80; PULSE 74–95; RESP 18–39; TEMP 97.8–100; O2SAT 99–100
[2017-04-13] MEDS: CHLORHEXIDINE GLUCONATE 2 % 1 PACK (2 CLOTHS) TOP SCH (01:49)
[2017-04-13] MEDS: DEXMEDETOMIDINE INJ 200 MCG in SODIUM CHLORIDE 0.9% INJ 50 ML IV PRN ×5 (01:49→23:26)
[2017-04-13] MEDS: PROPRANOLOL HCL 20 MG TAB PO SCH ×4 (01:49→21:49)
[2017-04-13 05:20] LABS: MEAN CELL VOLUME 88.3 FL (80.0-100.0); MEAN CORPUSCULAR HEMOGLOBIN 28.4 PG (27.0-34.0); MEAN CORPUSCULAR HGB CONC 32.1 % (32.0-36.0); MEAN PLATELET VOLUME 7.8 FL (7.0-11.0); PLATELET COUNT 370 TH/MM3 (150-450); RED BLOOD COUNT 2.37 MIL/MM3 (4.00-5.30); RED CELL DISTRIBUTION WIDTH 15.7 % (11.6-17.2); WHITE BLOOD COUNT 14.9 TH/MM3 (4.0-11.0)
[2017-04-13 05:38] LABS: BICARBONATE 22.9 MEQ/L (21.0-32.0); CALCIUM 8.4 MG/DL (8.5-10.1); CREATININE 0.96 MG/DL (0.50-1.00)
[2017-04-13] MEDS: FOSPHENYTOIN INJ 200 MGPE in SODIUM CHLORIDE 0.9% INJ 50 ML IV SCH ×3 (05:40→21:50)
[2017-04-13] MEDS: levETIRAcetam INJ 500 MG in SODIUM CHLORIDE 0.9% INJ 100 ML IV SCH ×3 (05:41→17:04)
[2017-04-13] MEDS: cloNIDine HCL 0.2 MG TAB PO SCH ×3 (05:42→21:49)
[2017-04-13] MEDS: METOCLOPRAMIDE HCL 10 MG/2 ML VIAL IV PUSH SCH ×3 (05:42→21:49)
[2017-04-13] MEDS: LACTULOSE SYRUP 20 GM/30 ML CUP PO SCH ×3 (05:42→18:34)
[2017-04-13] MEDS: HEPARIN SODIUM - SQ 10,000 UNITS/ML VIAL SQ SCH (05:43)
[2017-04-13] MEDS: INSULIN ASPART SUPPLEMENTAL SCALE SQ SCH ×3 (05:50→18:00)
[2017-04-13 05:57] LABS: HEMATOCRIT 20.9 % (35.0-46.0); HEMOGLOBIN 6.7 GM/DL (11.6-15.3)
[2017-04-13] MEDS: LANSOPRAZOLE SOLUTAB 30 MG TAB NG SCH (08:32)
[2017-04-13] MEDS: LACTOBACILLUS ACIDOPHILUS 1 GM PACKET OG-TUBE SCH ×3 (08:32→18:09)
[2017-04-13] MEDS: CLOPIDOGREL 75 MG TAB PO SCH (08:32)
[2017-04-13] MEDS: DOCUSATE SODIUM 50 MG/SENNA 8.6 MG TAB PO SCH ×2 (08:32→21:00)
[2017-04-13] MEDS: POLYETHYLENE GLYCOL 17 GM PKG PO SCH ×2 (08:32→21:00)
[2017-04-13] MEDS: LACOSAMIDE 100 MG TAB PO SCH ×2 (08:32→21:49)
[2017-04-13] MEDS: CHLORHEXIDINE 0.12% (ORAL KIT) 15 ML CUP MT SCH ×2 (08:33→20:00)
[2017-04-13] MEDS: ARTIFICIAL TEARS OPTH SOLN 15 ML BTL EACH EYE SCH ×3 (08:33→18:09)
[2017-04-13] MEDS: SODIUM CHLORIDE 0.9% FLUSH 10 ML FLUSH IV FLUSH SCH ×2 (08:33→21:50)
[2017-04-13] MEDS: hydrALAZINE HCL 20 MG/ML VIAL IV PUSH PRN ×2 (10:37→21:49)
[2017-04-13] MEDS ORDERED: SODIUM CHLOR 0.9% 250 ML INJ 250 ML IV ONE (12:30)
[2017-04-13] MEDS: ACETAMINOPHEN 650 MG/20.3 ML UDC NG PRN (19:00)
--- NOTE | 2017-04-13 19:45 | HHI.CCPN ---
Subjective Remarks/Hospital Course This is a 76-year-old female that presented to the ED for evaluation of altered mental status. Per report, according to EMS the patient normally is more alert and has a history of stroke, he was able to speak with the patient's sister who states that she is also power of bankruptcy attorney, the patient apparently normally is ambulatory and can carry on a conversation without any difficulty. Per records reviewed, the patient was last seen normal and at her baseline at 1 am. The patient then sat down in her lazy chair, her sister also noted that she started beating her head against a piece of furniture. The patient was noted to have a right frontal contusion upon presentation to the ED .She had a GCS of 7-8 on arrival. The patient's medical history is significant for a recent admission 12/2016 for altered mental status, medication induced. Her past medical history is also significant for a recent history of UTI and C. difficile in addition to her history of having a CVA and reportedly residual effects in the right upper and lower extremity. Laboratory and imaging studies revealed that most likely the patient has a UTI, CT of the brain revealed no abnormality and the patient was noted to have an elevated lactate level. The patient was emergently intubated in the ED, and the patient was noted to be significantly hypertensive and a nicardipine infusion was instituted. Upon entering the ED the patient's blood pressure was noted to be 219/92, Cardizem infusion had been ordered. The patient was noted to have spontaneous movement of the right upper and lower extremity with a gag reflex. Critical care medicine was consulted. 04/04: The patient was weaned off of nicardipine infusion. Normotensive the patient continues on labetalol twice a day scheduled home dosing. EEG attempted last evening however due to patient's movement bilaterally to complete artifact EEG reordered. Fentanyl infusion discontinued for daily sedation vacation approximately 7 hours ago the patient remains nonresponsive. Opens eyes spontaneously, moves limbs spontaneously but does not follow any commands. Brain MRI/MRA, and CT all negative findings. EEG scheduled for a.m.. The patient continues in severe metabolic acidosis, 2 Amps of sodium bicarbonate IV push given this a.m., sodium bicarbonate infusion increased. Lactate is cleared, creatinine is improving, CT of the abdomen and pelvis is pending this afternoon. 04/05 CT report from yesterday shows bladder edema consistent with cystitis. URine culture with GNR Blood cultures NGTD. . Getting EEG now. 04/06: Resting comfortable in bed in no acute distress. No obvious seizure activity. Plan for lumbar puncture in AM. Low-grade temperatures overnight. Tolerating tube feeding at goal. No bowel movement 04/07: Continues EEG has been discontinued. Tmax 100. Currently 99.8. No bowel movement since admission. Tolerating tube feeds at goal. No active seizure activity overnight. 04/08: Tmax 100. Currently 99.9. Became tachycardic with sedation lowered so RN increased midazolam to 9 milligrams an hour. Also fentanyl drip at 250 mcg per hour. No bowel movement since admission. Tolerating tube feedings with only 40 cc residuals. Receiving methylnaltrexone milligrams subcutaneous 1 along with mineral oil and suppository. KUB pending. Patient improved neurological exam. Blinks with my suddenhand movements towards face. Positive gag. Withdraws to pain in all 4 extremities. 04/09 LP results not yet finalized. On versed 7 mg/hr and fentanyl 250 mcg/hr. EEG from 04/08 - no epileptiform features. 04/10 Weaning fentanyl down but remains on versed for seizure suppression. Because she had difficult to control subclinical seizures, will need close EEG monitoring for benzo weaning. Was breathing on PSV for couple of hours day, even on sedation. CSF negative final culture. No Leukocytosis or fever. Will stop antibiotic. Updated sister. 04/11: no seizures evident on EEG. slightly more awake today, but not following commands. had discussion with Dr. Martinez, will wean versed to 4mg/hr and re- evaluate on EEG tomorrow. 04/12: no seizures on EEG. ok to wean versed to off per Dr. Martinez. will work on waking and weaning mechanical ventilation. Subjective 04/13: acute drop in hgb. ordered 1 unit prbc. sent haptoglobin and LDH. pt awake following commands. fails SBT for RSBI > 110. Objective Vital Signs Date Time Temp Pulse Resp B/P (MAP) Pulse Ox O2 Delivery O2 Flow Rate FiO2 04/13/17 18:28 100.0 83 24 149/65 100 04/13/17 15:09 35 Intake and Output 04/13/17 04/13/17 04/13/17 07:59 15:59 23:59 Intake Total 1072 ml Output Total 600 ml Balance 472 ml Result Diagram: 04/13/17 0502 04/13/17 0502 Other Results Laboratory Tests Test 04/13/17 16:21 Blood Gas Puncture Site RT RADIAL Blood Gas Patient Temperature 98.6 Blood Gas HCO3 21 mmol/L (22-26) Blood Gas Base Excess -2.1 mmol/L (-2-2) Blood Gas Oxygen Saturation 96 % (90-100) Arterial Blood pH 7.47 (7.380-7.420) Arterial Blood Partial Pressure CO2 29 mmHg (38-42) Arterial Blood Partial Pressure O2 119 mmHg (61-120) Arterial Blood Oxygen Content 9.2 Vol % (12.0-20.0) Arterial Blood Carboxyhemoglobin 0.9 % (0-4) Arterial Blood Methemoglobin 1.3 % (0-2) Blood Gas Hemoglobin 6.6 G/DL (12.0-16.0) Oxygen Delivery Device VENTILATOR Blood Gas Ventilator Setting CPAP+5/PS+5 Blood Gas Inspired Oxygen 35 % Imaging Last Impressions Chest X-Ray 04/08/17 0600 Signed Impressions: Service Date/Time: Saturday, April 08, 2017 04:41 - CONCLUSION: No significant interval change. Kd Doty MD Lumbar Puncture Fluoroscopy 04/07/17 0000 Signed Impressions: Service Date/Time: March 09:39 - CONCLUSION: Uncomplicated fluoroscopically guided lumbar puncture. Harris Gamboa MD Brain MRI 04/07/17 0000 Signed Impressions: Service Date/Time: March 10:24 - CONCLUSION: No acute intracranial findings Kali Jerry MD Upper Extremity Ultrasound 04/06/17 0000 Signed Impressions: Service Date/Time: Thursday, April 06, 2017 21:32 - CONCLUSION: 1. No sonographic evidence for right upper extremity DVT. Harris Gamboa MD Lower Extremity Ultrasound 04/06/17 0000 Signed Impressions: Service Date/Time: Thursday, April 06, 2017 21:12 - CONCLUSION: 1. No sonographic evidence for lower extremity DVT. Harris Gamboa MD Abdomen/Pelvis CT 04/04/17 0000 Signed Impressions: Service Date/Time: Tuesday, April 04, 2017 16:05 - CONCLUSION: 1. Mild edema surrounding the urinary bladder, question cystitis. Moore catheter in place. 2. Status post cholecystectomy. 3. Left lower lobe atelectasis. 4. Nasogastric tube tip at the gastroesophageal junction. Kd Doty MD Neck Magnetic Resonance Angiography 04/03/17 1119 Signed Impressions: Service Date/Time: Monday, April 03, 2017 13:11 - CONCLUSION: Negative for hemodynamically significant carotid stenosis Roque Tripathi MD FACR Head Magnetic Resonance Angiography 04/03/17 1119 Signed Impressions: Service Date/Time: Monday, April 03, 2017 13:11 - CONCLUSION: Negative for major branch vessel occlusion. Roque Tripathi MD FACR Head CT 04/03/17 0851 Signed Impressions: Service Date/Time: Monday, April 03, 2017 09:02 - CONCLUSION: Negative for acute process.. Roque Tripathi MD FACR Cervical Spine CT 04/03/17 0000 Signed Impressions: Service Date/Time: Monday, April 03, 2017 09:07 - CONCLUSION: Fusion as above, negative for fracture. Roque Tripathi MD FACR Objective Remarks GENERAL: 76-year-old female currently orotracheally intubated SKIN: Warm and dry. HEAD: Atraumatic. Normocephalic. EYES: R periorbital ecchmosis. Pupils equal and round 1-2 mm bilaterally. No scleral icterus. No injection or drainage. ENT: No nasal bleeding or discharge. Mucous membranes pink and moist. NECK: Trachea midline. No JVD. CARDIOVASCULAR: RRR. RESPIRATORY: No accessory muscle use. Breath sounds equal bilaterally. GASTROINTESTINAL: Abdomen soft, non-tender, nondistended. No guarding. MUSCULOSKELETAL: Right upper extremity with 2+ edema and erythema. Negative Doppler ultrasound 04/06 for DVT NEUROLOGICAL: follows commands. RASS -1. A/P Assessment and Plan Assessment: 76yF with subclinical status which has been very difficult to control. now on multiple AEDs and finally without evidence of ongoing status. wean sedation and start weaning mechanical ventilation. failing SBTs for tachypnea and weakness. off pathway. 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 Clinical correlation. [id number] milligrams twice a day will be continued. Loaded with fosphenytoin - currently fosphenytoin 200 mg IV every 8 hours. Leevel 13 04/09 Levetiracetam 500 mg IV every 6 hours Lorazepam 2 mg IV every 5 minutes as needed. Seizures d/c versed drip. start precedex for weaning. TSH normal-3.0 Random cortisol level only 3.5. Unclear significance as patient had lactic acidemia but also hypertensive at the time. Recheck 04/07 12.3. Cosyntropin test ordered 04/08, had adequate response 04/03 MRI brain-Moderate periventricular white matter changes are evident. There is no restricted diffusion. There is moderate atrophy with dilatation of ventricular sulcal spaces. There are no extra-axial fluid collections appreciated. Posterior fossa is unremarkable. 04/03 MRA brain-negative for major branch occlusion 04/03 CT brain-no acute intracranial process MRI brain 04/07 - There is mild periventricular white matter T2 prolongation. A tiny lacunar infarct in the right lentiform nucleus appears old. There is no evidence of intracranial mass or hemorrhage. The brainstem and posterior fossa structures are unremarkable. There is nothing to suggest acute infarction. There is fluid in the left maxillary sinus and occasional ethmoid sinuses. Patient's home meds baclofen 10 mg 3 times a day, tramadol 50 mg every 4 hours as needed and sertraline 50 mg twice a day have been on hold due to concern for serotonin syndrome, seizure activity and rhabdomyolysis. Patient has history of altered mental status secondary to being medication induced. Reported by family member -the patient had discontinued baclofen for approximately 3 months and took her initial dose of baclofen on 04/02 with a TID schedule dosing. LP - HSV negative, final cx neg. Dr. Martinez actively following. Respiratory: Acute hypoxemic respiratory failure [facility] 16/500/04/15/34 Ventilator bundle Maintain O2 sat greater than 92% Albuterol/ipratropium aerosols nebs every 6 hours scheduled, albuterol aerosols every 2 hours when necessary continue daily SBTs. Cardiovascular: Hypertensive emergency-resolved History of hypertension Hyperlipidemia Congestive heart failure - ejection fraction 55-60% 2009 Labetalol, hydralazine IV , PRN to maintain SBP <160 Serial troponins were negative. propranolol 40mg po q6h given hypertension and tachycardia. On metoprolol 50 mg sustained release daily at home continue clopidogrel 75 mg by mouth daily/home medication Resumed 04/09 Continue pravastatin 40 mg by mouth daily/home medication for dyslipidemia clonidine 0.2mg po q8hr. Renal//FEN: Chronic kidney disease stage IIIB Hypo-magnesium Monitor urine output Monitor BMP Replete electrolytes as needed Previous Creatinine 12/2016- 1.15, upon admission 2.76, now at baseline Maintain OGT -continue Glucerna with goal rate 50 ml/hr per nutrition's recommendations GI: Esophageal stricture -history of esophageal dilatation GERD Elevated ammonia Constipation- resolved. Patient is currently on Glucerna 1.5 goal 50 cc per hour per nutrition's recommendations Lansoprazole 30 mg daily GI prophylaxis. On Dexlansoprazole 60 mg times daily at home Docusate sodium/senna 1 tablet twice a day for bowel regimen. polyethylene glycol 17 g twice a day and lactulose 30 cc 4x a day 1 dose of methylnaltrexone 12 MG SUBCUTANEOUS 1 AND 30 CC MINERAL OIL 1 Now having BMs after aggressive above bowel regimen. KUB 04/08 - mild ileus Ammonia level Recheck in a.m. 04/09 <10 Tolerating tube feeds. ID: Escherichia coli UTI Monitor CBC Blood cultures 04/03 - negative Urine culture 04/03 - Escherichia coli, pansensitive Strep pneumococcal antigen 04/03 - negative CSF 04/07 Gram stain, fungal and AFB negative as of 04/08 Recent history of C. difficile colitis. Lactinex tid. off abx. monitor. reculture for fever. HEME/ONC: History of cervical cancer Normocytic anemia History of right lower extremity DVT - posterior tibial and femoral vein previously on Apixaban Clopidogrel 75 mg daily initially held for LP. Restarted 04/09 Lactate level 1.8 Recheck Dopplers bilateral and right upper lower extremities 04/07 negative for DVT 1 unit prbc f/u haptoglobin and LDH hold SQH send stool guiac. Endocrine: Diabetes mellitus Low cortisol Glucose monitoring per ICU protocol, low dose regimen Novulog every 6 hours Hold metformin thousand milligrams twice a day Prophylaxis: GI Prophylaxis Lansoprazole 30 mg daily DVT Prophylaxis -- SCDs hold SQH given anemia. Lines: Peripheral IVs providing adequate access. Guzman,Yogesh S MD Apr 13, 2017 19:45
[2017-04-13] MEDS: PRAVASTATIN SOD 40 MG TAB PO SCH (21:49)
[2017-04-14] VITALS (21 sets, daily range): BP systolic 135–192; BP diastolic 62–78; PULSE 72–102; RESP 22–44; TEMP 97.9–99.6; O2SAT 94–100
[2017-04-14] MEDS: PROPRANOLOL HCL 20 MG TAB PO SCH ×5 (00:38→23:44)
[2017-04-14] MEDS: levETIRAcetam INJ 500 MG in SODIUM CHLORIDE 0.9% INJ 100 ML IV SCH ×4 (00:38→19:53)
[2017-04-14] MEDS: CHLORHEXIDINE GLUCONATE 2 % 1 PACK (2 CLOTHS) TOP SCH (00:39)
[2017-04-14] MEDS: DEXMEDETOMIDINE INJ 200 MCG in SODIUM CHLORIDE 0.9% INJ 50 ML IV PRN (02:29)
[2017-04-14] MEDS: INSULIN ASPART SUPPLEMENTAL SCALE SQ SCH ×4 (05:16→16:54)
[2017-04-14] MEDS: hydrALAZINE HCL 20 MG/ML VIAL IV PUSH PRN ×4 (05:17→19:39)
[2017-04-14] MEDS: cloNIDine HCL 0.2 MG TAB PO SCH ×3 (05:17→19:43)
[2017-04-14] MEDS: METOCLOPRAMIDE HCL 10 MG/2 ML VIAL IV PUSH SCH (05:17)
[2017-04-14] MEDS: FOSPHENYTOIN INJ 200 MGPE in SODIUM CHLORIDE 0.9% INJ 50 ML IV SCH ×3 (05:19→22:57)
[2017-04-14] MEDS: LACTULOSE SYRUP 20 GM/30 ML CUP PO SCH ×5 (05:19→19:43)
--- NOTE | 2017-04-14 06:50 | RADRPT ---
EXAM DATE/TIME: 04/14/2017 06:33 [place] COMPARISON: CHEST SINGLE AP, April 09, 2017, 3:52. INDICATIONS : Shortness of breath, possible pulmonary disease. MEDICAL HISTORY : Cardiovascular disease. Diabetes mellitus type I. Osteoporosis. Polio Cervical ca SURGICAL HISTORY : Appendectomy. Hysterectomy. Cholecystectomy. ENCOUNTER: Subsequent ACUITY: 2 weeks PAIN SCORE: Non-responsive. LOCATION: Bilateral chest FINDINGS: A single portable frontal view the chest shows endotracheal tube 2 cm proximal to the yoly. Nasogas tric tube coiled in the stomach. Lungs are clear with exception of linear atelectasis at the retrocar diac left lung base. No infiltrates or effusions. Heart is normal in size. CONCLUSION: Minimal left basilar atelectasis. Dano Phelps Jr., MD on April 14, 2017 at 6:48 Board Certified Radiologist. This report was verified electronically.
[2017-04-14 07:54] LABS: HEMOGLOBIN 8.5 GM/DL (11.6-15.3); MEAN CELL VOLUME 90.6 FL (80.0-100.0); MEAN CORPUSCULAR HEMOGLOBIN 29.8 PG (27.0-34.0); MEAN CORPUSCULAR HGB CONC 32.8 % (32.0-36.0); PLATELET COUNT 392 TH/MM3 (150-450); RED BLOOD COUNT 2.87 MIL/MM3 (4.00-5.30); RED CELL DISTRIBUTION WIDTH 15.4 % (11.6-17.2)
[2017-04-14 08:01] LABS: BICARBONATE 17.3 MEQ/L (21.0-32.0); CALCIUM 8.3 MG/DL (8.5-10.1); CREATININE 0.94 MG/DL (0.50-1.00)
[2017-04-14] MEDS: LACTOBACILLUS ACIDOPHILUS 1 GM PACKET OG-TUBE SCH ×3 (08:55→18:00)
[2017-04-14] MEDS: LANSOPRAZOLE SOLUTAB 30 MG TAB NG SCH (08:55)
[2017-04-14] MEDS: ARTIFICIAL TEARS OPTH SOLN 15 ML BTL EACH EYE SCH ×3 (08:56→18:40)
[2017-04-14] MEDS: LACOSAMIDE 100 MG TAB PO SCH ×2 (08:56→19:42)
[2017-04-14] MEDS: CLOPIDOGREL 75 MG TAB PO SCH (08:56)
[2017-04-14] MEDS: CHLORHEXIDINE 0.12% (ORAL KIT) 15 ML CUP MT SCH ×2 (08:56→20:00)
[2017-04-14] MEDS: SODIUM CHLORIDE 0.9% FLUSH 10 ML FLUSH IV FLUSH SCH ×2 (08:56→22:56)
[2017-04-14] MEDS: DOCUSATE SODIUM 50 MG/SENNA 8.6 MG TAB PO SCH ×2 (08:57→19:42)
[2017-04-14] MEDS: POLYETHYLENE GLYCOL 17 GM PKG PO SCH ×2 (08:57→19:42)
--- NOTE | 2017-04-14 17:25 | HHI.PR ---
Review/Management Diagnosis subclinical status epilepticus. Clinically improved with no clinical SZ Plan Continue current level of keppra and vimpat Will give additional cerebyx dose 300 mg and recheck phenytoin level in am Diagnosis/Plan: Subjective Subjective Comments No acute events reported No headache No SZ. Active Medications Current Medications Medications (Trade) Dose Ordered Sig/Georgie Route Start Time Stop Time Status Last Admin (NS Flush) 2 ml UNSCH PRN IV FLUSH 04/03/17 11:15 04/08/17 08:59 (NS Flush) 2 ml BID IV FLUSH 04/03/17 21:00 04/14/17 08:56 (Tears Naturale Opth Soln) 1 drop TID EACH EYE 04/03/17 13:00 04/14/17 12:27 Miscellaneous Information 1 Q361D XX 04/03/17 11:15 04/03/17 11:15 (Chlorhexidine 2% Cloth) Taper DAILY@04 TOP 04/04/17 04:00 03/31/18 03:59 04/14/17 00:39 (Chlorhexidine 2% Cloth) 3 pack UNSCH PRN TOP 04/03/17 11:15 (Jenn-Colace) 1 tab BID PO 04/03/17 21:00 04/12/17 01:36 (Milk Of Magnesia Liq) 30 ml Q12H PRN PO 04/03/17 11:15 (Senokot) 17.2 mg Q12H PRN PO 04/03/17 11:15 (Dulcolax Supp) 10 mg DAILY PRN RECTAL 04/03/17 11:15 04/08/17 15:19 (D50w (Vial) Inj) 50 ml UNSCH PRN IV PUSH 04/03/17 11:30 (Glucagon Inj) 1 mg UNSCH PRN OTHER 04/03/17 11:30 (Vimpat) 100 mg BID PO 04/03/17 14:15 04/14/17 08:56 (Pravachol) 40 mg HS PO 04/03/17 21:00 04/13/17 21:49 (Trandate Inj) 10 mg Q4H PRN IV PUSH 04/03/17 14:30 04/11/17 14:42 (Apresoline Inj) 20 mg Q4H PRN IV PUSH 04/03/17 14:30 04/14/17 15:36 (Lopressor) 25 mg Q6HR PO 04/03/17 21:00 Future Hold 04/11/17 12:05 Potassium Chloride 100 ml @ 50 mls/hr Q2H PRN IV 04/05/17 09:15 Potassium Chloride 100 ml @ 50 mls/hr Q2H PRN IV 04/05/17 09:15 04/05/17 15:57 (K-Lyte Cl Eff) 50 meq UNSCH PRN PO 04/05/17 09:15 Potassium Chloride 100 ml @ 25 mls/hr UNSCH PRN IV 04/05/17 09:15 Potassium Chloride 100 ml @ 50 mls/hr Q2H PRN IV 04/05/17 09:15 Magnesium Sulfate 4 gm/Sodium Chloride 100 ml @ 50 mls/hr UNSCH PRN IV 04/05/17 09:15 (Mag-Ox) 800 mg UNSCH PRN PO 04/05/17 09:15 Magnesium Sulfate 2 gm/Sodium Chloride 100 ml @ 50 mls/hr UNSCH PRN IV 04/05/17 09:15 (K-Phos) 2,000 mg Q4H PRN PO 04/05/17 09:15 Sodium Phosphate 30 mmol/Sodium Chloride 250 ml @ 42 mls/hr UNSCH PRN IV 04/05/17 09:15 (K-Phos) 2,000 mg UNSCH PRN PO/TUBE 04/05/17 09:15 Potassium Phosphate 30 mmol/ Sodium Chloride 260 ml @ 42 mls/hr UNSCH PRN IV 04/05/17 09:15 (Lactinex Pkt) 1 gm TID OG-TUBE 04/05/17 13:00 04/14/17 12:27 (Ativan Inj) 2 mg Q5M PRN IV PUSH 04/05/17 10:45 04/05/17 14:18 (Tylenol 650 Mg/ 20 ml Liq) 650 mg Q6H PRN NG 04/06/17 17:00 04/13/17 19:00 (NovoLOG SUPPLEMENTAL SCALE) 1 Q6HR SQ 04/06/17 18:00 04/13/17 05:50 (Albuterol Neb) 2.5 mg Q2HR NEB PRN NEB 04/06/17 17:00 (Prevacid Odt) 30 mg DAILY NG 04/07/17 09:00 04/14/17 08:55 Levetriacetam 500 mg/Sodium Chloride 105 ml @ 420 mls/hr Q6HR IV 04/07/17 12:00 04/14/17 12:27 (Miralax) 17 gm BID PO 04/07/17 21:00 04/12/17 01:36 (Plavix) 75 mg DAILY PO 04/09/17 09:00 04/14/17 08:56 (Heparin Inj) 5,000 units Q8HR SQ 04/08/17 22:00 Future Hold 04/13/17 05:43 (Peridex 0.12% Liq) 15 ml BID@08,20 MT 04/08/17 20:00 04/14/17 08:56 (Lactulose Liq) 30 ml Q6HR PO 04/08/17 18:00 04/13/17 18:34 Fosphenytoin Sodium 200 mgpe/ Sodium Chloride 54 ml @ 216 mls/hr Q8HR IV 04/09/17 06:00 04/14/17 15:36 (Inderal) 40 mg Q6H PO 04/11/17 13:30 04/14/17 12:27 (Catapres) 0.2 mg Q8HR PO 04/12/17 22:00 04/14/17 05:17 Allergies Allergies Coded Allergies Influenza Virus Vaccines (Unverified Allergy, Intermediate, 02/04/17) egg (Unverified Allergy, Intermediate, 02/04/17) codeine (Unverified Allergy, Mild, 02/04/17) meperidine (Unverified Allergy, Mild, 02/04/17) morphine (Unverified Allergy, Mild, 02/04/17) acetaminophen (Unverified Adverse Reaction, Mild, HEADACHE, 02/04/17) hydrocodone (Unverified Adverse Reaction, Mild, HEADACHE, 02/04/17) Exam I&O / VS 04/14/17 04/14/17 04/15/17 14:59 22:59 06:59 Intake Total 468 ml Balance 468 ml IV Total 468 ml Vital Signs Date Time Temp Pulse Resp B/P (MAP) Pulse Ox O2 Delivery O2 Flow Rate FiO2 04/14/17 16:00 96 04/14/17 16:00 99.6 96 42 170/72 (104) 98 04/14/17 15:43 98 Simple Mask 7.00 04/14/17 14:00 98 04/14/17 13:15 97 Nasal Cannula 3 04/14/17 12:00 98.3 102 31 162/67 (98) 97 04/14/17 12:00 30 04/14/17 12:00 102 04/14/17 11:39 97 30 04/14/17 11:00 95 44 183/77 (112) 97 04/14/17 10:00 89 04/14/17 08:46 99 30 04/14/17 08:00 93 04/14/17 08:00 30 04/14/17 08:00 97.9 93 22 145/64 (91) 96 04/14/17 06:00 86 04/14/17 04:33 100 35 04/14/17 04:00 98.7 72 23 168/77 (107) 99 04/14/17 04:00 72 04/14/17 04:00 30 04/14/17 02:00 77 04/14/17 00:26 100 35 04/14/17 00:00 30 04/14/17 00:00 75 04/14/17 00:00 98.4 75 24 135/62 (86) 99 04/13/17 23:43 98.2 76 25 137/63 99 04/13/17 22:00 74 04/13/17 20:41 100 35 04/13/17 20:00 35 04/13/17 20:00 85 04/13/17 20:00 98.6 85 39 166/71 (102) 100 04/13/17 18:28 100.0 83 24 149/65 100 04/13/17 18:06 97.8 83 24 146/63 100 04/13/17 18:00 82 Exam Comments opens eyes to voice and does follow commands PERRL withdraws BLE to tactile stimulation Objective Micro and Labs Laboratory Tests Test 04/14/17 07:17 White Blood Count 13.0 Red Blood Count 2.87 Hemoglobin 8.5 Hematocrit 26.0 Mean Corpuscular Volume 90.6 Mean Corpuscular Hemoglobin 29.8 Mean Corpuscular Hemoglobin Concent 32.8 Red Cell Distribution Width 15.4 Platelet Count 392 Mean Platelet Volume 8.0 Blood Urea Nitrogen 25 Creatinine 0.94 Random Glucose 127 Calcium Level 8.3 Sodium Level 138 Potassium Level 3.9 Chloride Level 107 Carbon Dioxide Level 17.3 Anion Gap 14 Estimat Glomerular Filtration Rate 58 Date/Time Source Procedure Growth Status 04/11/17 16:54 Blood Peripheral Aerobic Blood Culture - Preliminary NO GROWTH IN 3 DAYS Resulted 04/11/17 16:54 Blood Peripheral Anaerobic Blood Culture - Preliminary NO GROWTH IN 3 DAYS Resulted 04/07/17 09:47 Cerebral Spinal Fluid Lumbar Puncture Fungal Smear - Final NO FUNGAL ELEMENTS SEEN. Resulted 04/07/17 09:47 Cerebral Spinal Fluid Lumbar Puncture Fungal Culture - Preliminary NO GROWTH IN 1 WEEK Resulted 04/14/17 02:00 Stool Stool Stool Occult Blood (YOLANDA) - Final HEMOCCULT NEGATIVE Complete 04/13/17 22:16 Sputum Endotracheal Gram Stain - Final Resulted 04/13/17 22:16 Sputum Endotracheal Sputum Culture Pending Resulted 04/03/17 09:54 Urine Catheterized Urine Streptococcus pneumoniae Antigen (M - Final PRESUMPTIVE NEGATIVE FOR STREPTOCOCCU... Complete John Martinez MD PhD Apr 14, 2017 17:25
[2017-04-14] MEDS ORDERED: FOSPHENYTOIN SODIUM 100 MG PE/2 ML VIAL IV ONE (19:00)
[2017-04-14] MEDS: PRAVASTATIN SOD 40 MG TAB PO SCH (19:42)
--- NOTE | 2017-04-14 19:49 | HHI.CCPN ---
Subjective Remarks/Hospital Course This is a 76-year-old female that presented to the ED for evaluation of altered mental status. 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 Per records reviewed, the patient was last seen normal and at her baseline at 1 am. The patient then sat down in her lazy chair, her sister also noted that she started beating her head against a piece of furniture. The patient was noted to have a right frontal contusion upon presentation to the ED .She had a GCS of 7-8 on arrival. The patient's medical history is significant for a recent admission 12/2016 for altered mental status, medication induced. Her past medical history is also significant for a recent history of UTI and C. difficile in addition to her history of having a CVA and reportedly residual effects in the right upper and lower extremity. Laboratory and imaging studies revealed that most likely the patient has a UTI, CT of the brain revealed no abnormality and the patient was noted to have an elevated lactate level. The patient was emergently intubated in the ED, and the patient was noted to be significantly hypertensive and a nicardipine infusion was instituted. Upon entering the ED the patient's blood pressure was noted to be 219/92, Cardizem infusion had been ordered. The patient was noted to have spontaneous movement of the right upper and lower extremity with a gag reflex. Critical care medicine was consulted. 04/04: The patient was weaned off of nicardipine infusion. Normotensive the patient continues on labetalol twice a day scheduled home dosing. EEG attempted last evening however due to patient's movement bilaterally to complete artifact EEG reordered. Fentanyl infusion discontinued for daily sedation vacation approximately 7 hours ago the patient remains nonresponsive. Opens eyes spontaneously, moves limbs spontaneously but does not follow any commands. Brain MRI/MRA, and CT all negative findings. EEG scheduled for a.m.. The patient continues in severe metabolic acidosis, 2 Amps of sodium bicarbonate IV push given this a.m., sodium bicarbonate infusion increased. Lactate is cleared, creatinine is improving, CT of the abdomen and pelvis is pending this afternoon. 04/05 CT report from yesterday shows bladder edema consistent with cystitis. URine culture with GNR Blood cultures NGTD. . Getting EEG now. 04/06: Resting comfortable in bed in no acute distress. No obvious seizure activity. Plan for lumbar puncture in AM. Low-grade temperatures overnight. Tolerating tube feeding at goal. No bowel movement 04/07: Continues EEG has been discontinued. Tmax 100. Currently 99.8. No bowel movement since admission. Tolerating tube feeds at goal. No active seizure activity overnight. 04/08: Tmax 100. Currently 99.9. Became tachycardic with sedation lowered so RN increased midazolam to 9 milligrams an hour. Also fentanyl drip at 250 mcg per hour. No bowel movement since admission. Tolerating tube feedings with only 40 cc residuals. Receiving methylnaltrexone milligrams subcutaneous 1 along with mineral oil and suppository. KUB pending. Patient improved neurological exam. Blinks with my suddenhand movements towards face. Positive gag. Withdraws to pain in all 4 extremities. 04/09 LP results not yet finalized. On versed 7 mg/hr and fentanyl 250 mcg/hr. EEG from 04/08 - no epileptiform features. 04/10 Weaning fentanyl down but remains on versed for seizure suppression. Because she had difficult to control subclinical seizures, will need close EEG monitoring for benzo weaning. Was breathing on PSV for couple of hours day, even on sedation. CSF negative final culture. No Leukocytosis or fever. Will stop antibiotic. Updated sister. 04/11: no seizures evident on EEG. slightly more awake today, but not following commands. had discussion with Dr. Martinez, will wean versed to 4mg/hr and re- evaluate on EEG tomorrow. 04/12: no seizures on EEG. ok to wean versed to off per Dr. Martinez. will work on waking and weaning mechanical ventilation. 04/13: acute drop in hgb. ordered 1 unit prbc. sent haptoglobin and LDH. pt awake following commands. fails SBT for RSBI > 110. Subjective 04/14: hgb improved. still awake, alert, following commands. extubated successfully. Objective Vital Signs Date Time Temp Pulse Resp B/P (MAP) Pulse Ox O2 Delivery O2 Flow Rate FiO2 04/14/17 18:00 93 04/14/17 16:00 99.6 42 170/72 (104) 98 04/14/17 15:43 Simple Mask 7.00 04/14/17 12:00 30 Intake and Output 04/14/17 04/14/17 04/15/17 08:00 16:00 00:00 Intake Total 1216 ml Output Total 200 ml Balance 1016 ml Result Diagram: 04/14/17 0717 04/14/17 0717 Other Results Microbiology Date/Time Source Procedure Growth Status 04/14/17 02:00 Stool Stool Stool Occult Blood (YOLANDA) - Final HEMOCCULT NEGATIVE Complete Imaging Last Impressions Chest X-Ray 04/08/17 0600 Signed Impressions: Service Date/Time: Saturday, April 08, 2017 04:41 - CONCLUSION: No significant interval change. Kd Doty MD Lumbar Puncture Fluoroscopy 04/07/17 0000 Signed Impressions: Service Date/Time: March 09:39 - CONCLUSION: Uncomplicated fluoroscopically guided lumbar puncture. Harris Gamboa MD Brain MRI 04/07/17 0000 Signed Impressions: Service Date/Time: March 10:24 - CONCLUSION: No acute intracranial findings Kali Jerry MD Upper Extremity Ultrasound 04/06/17 0000 Signed Impressions: Service Date/Time: Thursday, April 06, 2017 21:32 - CONCLUSION: 1. No sonographic evidence for right upper extremity DVT. Harris Gamboa MD Lower Extremity Ultrasound 04/06/17 0000 Signed Impressions: Service Date/Time: Thursday, April 06, 2017 21:12 - CONCLUSION: 1. No sonographic evidence for lower extremity DVT. Harris Gamboa MD Abdomen/Pelvis CT 04/04/17 0000 Signed Impressions: Service Date/Time: Tuesday, April 04, 2017 16:05 - CONCLUSION: 1. Mild edema surrounding the urinary bladder, question cystitis. Moore catheter in place. 2. Status post cholecystectomy. 3. Left lower lobe atelectasis. 4. Nasogastric tube tip at the gastroesophageal junction. Kd Doty MD Neck Magnetic Resonance Angiography 04/03/17 1119 Signed Impressions: Service Date/Time: Monday, April 03, 2017 13:11 - CONCLUSION: Negative for hemodynamically significant carotid stenosis Roque Tripathi MD FACR Head Magnetic Resonance Angiography 04/03/17 1119 Signed Impressions: Service Date/Time: Monday, April 03, 2017 13:11 - CONCLUSION: Negative for major branch vessel occlusion. Roque Tripathi MD FACR Head CT 04/03/17 0851 Signed Impressions: Service Date/Time: Monday, April 03, 2017 09:02 - CONCLUSION: Negative for acute process.. Roque Tripathi MD FACR Cervical Spine CT 04/03/17 0000 Signed Impressions: Service Date/Time: Monday, April 03, 2017 09:07 - CONCLUSION: Fusion as above, negative for fracture. Roque Tripathi MD FACR Objective Remarks GENERAL: 76-year-old female currently orotracheally intubated SKIN: Warm and dry. HEAD: Atraumatic. Normocephalic. EYES: R periorbital ecchmosis. Pupils equal and round 1-2 mm bilaterally. No scleral icterus. No injection or drainage. ENT: No nasal bleeding or discharge. Mucous membranes pink and moist. NECK: Trachea midline. No JVD. CARDIOVASCULAR: RRR. RESPIRATORY: No accessory muscle use. Breath sounds equal bilaterally. GASTROINTESTINAL: Abdomen soft, non-tender, nondistended. No guarding. MUSCULOSKELETAL: Right upper extremity with 2+ edema and erythema. Negative Doppler ultrasound 04/06 for DVT NEUROLOGICAL: follows commands. RASS -1. A/P Assessment and Plan Assessment: 76yF with subclinical status which has been very difficult to control. now on multiple AEDs and finally without evidence of ongoing status. extubated on my exam today. weaned to nc o2. will need formal swallow evaluation. keep in ICU for high risk of decompensation. 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 Clinical correlation. [id number] milligrams twice a day will be continued. Loaded with fosphenytoin - currently fosphenytoin 200 mg IV every 8 hours. Leevel 13 04/09 Levetiracetam 500 mg IV every 6 hours Lorazepam 2 mg IV every 5 minutes as needed. Seizures TSH normal-3.0 Random cortisol level only 3.5. Unclear significance as patient had lactic acidemia but also hypertensive at the time. Recheck 04/07 12.3. Cosyntropin test ordered 04/08, had adequate response 04/03 MRI brain-Moderate periventricular white matter changes are evident. There is no restricted diffusion. There is moderate atrophy with dilatation of ventricular sulcal spaces. There are no extra-axial fluid collections appreciated. Posterior fossa is unremarkable. 04/03 MRA brain-negative for major branch occlusion 04/03 CT brain-no acute intracranial process MRI brain 04/07 - There is mild periventricular white matter T2 prolongation. A tiny lacunar infarct in the right lentiform nucleus appears old. There is no evidence of intracranial mass or hemorrhage. The brainstem and posterior fossa structures are unremarkable. There is nothing to suggest acute infarction. There is fluid in the left maxillary sinus and occasional ethmoid sinuses. Patient's home meds baclofen 10 mg 3 times a day, tramadol 50 mg every 4 hours as needed and sertraline 50 mg twice a day have been on hold due to concern for serotonin syndrome, seizure activity and rhabdomyolysis. Patient has history of altered mental status secondary to being medication induced. Reported by family member -the patient had discontinued baclofen for approximately 3 months and took her initial dose of baclofen on 04/02 with a TID schedule dosing. LP - HSV negative, final cx neg. Dr. Martinez actively following. Respiratory: Acute hypoxemic respiratory failure- improving. wean o2 by nc. aggressive pulmonary toilet. Maintain O2 sat greater than 92% Albuterol/ipratropium aerosols nebs every 6 hours scheduled, albuterol aerosols every 2 hours when necessary Cardiovascular: Hypertensive emergency-resolved History of hypertension Hyperlipidemia Congestive heart failure - ejection fraction 55-60% 2009 Labetalol, hydralazine IV , PRN to maintain SBP <160 Serial troponins were negative. propranolol 40mg po q6h given hypertension and tachycardia. On metoprolol 50 mg sustained release daily at home continue clopidogrel 75 mg by mouth daily/home medication Resumed 04/09 Continue pravastatin 40 mg by mouth daily/home medication for dyslipidemia clonidine 0.2mg po q8hr. Renal//FEN: Chronic kidney disease stage IIIB Hypo-magnesium Monitor urine output Monitor BMP Replete electrolytes as needed Previous Creatinine 12/2016- 1.15, upon admission 2.76, now at baseline GI: Esophageal stricture -history of esophageal dilatation GERD Elevated ammonia Constipation- resolved. Patient is currently on Glucerna 1.5 goal 50 cc per hour per nutrition's recommendations Lansoprazole 30 mg daily GI prophylaxis. On Dexlansoprazole 60 mg times daily at home Docusate sodium/senna 1 tablet twice a day for bowel regimen. polyethylene glycol 17 g twice a day and lactulose 30 cc 4x a day 1 dose of methylnaltrexone 12 MG SUBCUTANEOUS 1 AND 30 CC MINERAL OIL 1 Now having BMs after aggressive above bowel regimen. KUB 04/08 - mild ileus Ammonia level Recheck in a.m. 04/09 <10 formal swallow eval. ID: Escherichia coli UTI Monitor CBC Blood cultures 04/03 - negative Urine culture 04/03 - Escherichia coli, pansensitive Strep pneumococcal antigen 04/03 - negative CSF 04/07 Gram stain, fungal and AFB negative as of 04/08 Recent history of C. difficile colitis. Lactinex tid. off abx. monitor. reculture for fever. HEME/ONC: History of cervical cancer Normocytic anemia History of right lower extremity DVT - posterior tibial and femoral vein previously on Apixaban Clopidogrel 75 mg daily initially held for LP. Restarted 04/09 Lactate level 1.8 Recheck Dopplers bilateral and right upper lower extremities 04/07 negative for DVT 1 unit prbc f/u haptoglobin and LDH hold SQH guiac negative. hgb improved. will hold SQH one more day,then likely can restart. unclear etiology of hgb drop and may be secondary to dilutional lab draw. Endocrine: Diabetes mellitus Low cortisol Glucose monitoring per ICU protocol, low dose regimen Novulog every 6 hours Hold metformin thousand milligrams twice a day Prophylaxis: GI Prophylaxis Lansoprazole 30 mg daily DVT Prophylaxis -- SCDs hold SQH given anemia. Lines: Peripheral IVs providing adequate access. Yogesh Guzman MD Apr 14, 2017 19:49
[2017-04-14] MEDS ORDERED: FOSPHENYTOIN INJ 300 MGPE in SODIUM CHLORIDE 0.9% INJ 50 ML IV ONE (20:00)
[2017-04-14] MEDS ORDERED: cloNIDine HCL 0.3 MG/24 HR PATCH T-DERMAL ONE (20:45)
[2017-04-14] MEDS: LABETALOL HCL 100 MG/20 ML VIAL IV PUSH PRN (22:58)
[2017-04-15] VITALS (38 sets, daily range): BP systolic 106–165; BP diastolic 53–96; PULSE 74–98; RESP 16–30; TEMP 97.7–102; O2SAT 95–99
[2017-04-15] MEDS: levETIRAcetam INJ 500 MG in SODIUM CHLORIDE 0.9% INJ 100 ML IV SCH ×4 (00:51→17:32)
[2017-04-15] MEDS: hydrALAZINE HCL 20 MG/ML VIAL IV PUSH PRN (01:22)
[2017-04-15] MEDS ORDERED: DEXMEDETOMIDINE INJ 200 MCG in SODIUM CHLORIDE 0.9% INJ 50 ML IV PRN (03:15)
[2017-04-15] MEDS ORDERED: ROCURONIUM INJ 50 MG/5 ML VIAL IV ONE (03:15)
[2017-04-15] MEDS ORDERED: MIDAZOLAM 100 MG/100 ML INJ 100 ML IV PRN (03:15)
[2017-04-15] MEDS ORDERED: ETOMIDATE 40 MG/20 ML VIAL IV PUSH ONE (03:15)
--- NOTE | 2017-04-15 03:32 | PD.PROCEDR ---
Procedure Note Procedure DATE: 04/15/2017 PROCEDURE: Orotracheal intubation INDICATION: Hypercapnic respiratory failure DETAILS OF PROCEDURE The patient was placed in optimal position and preoxygenated with 100% FiO2 via bag valve mask. At the start oxygen saturation was 100%. The patient was administered 20 mg etomidate IV and 50 milligrams rocuronium IV. I entered the oropharynx with a size 4 GVL glidescope laryngoscope blade and obtained a grade 2 view of the airway. On single attempt a size 735 cuffed endotracheal tube was passed through the vocal cords. Correct tube location was confirmed with end tidal CO2 detector and by auscultating over bilateral lung hernandez. The endotracheal tube was secured with adhesive tape at a depth of 23 cm at the lips. The patient was connected to the ventilator. The patient tolerated the procedure well without any apparent complications. Oxygen saturations were maintained greater than 95% all times. STAT chest x-ray pending at time of dictation. Agapito Leon MD Apr 15, 2017 03:32
[2017-04-15] MEDS: CHLORHEXIDINE GLUCONATE 2 % 1 PACK (2 CLOTHS) TOP SCH (04:00)
[2017-04-15] MEDS: LACTULOSE SYRUP 20 GM/30 ML CUP PO SCH ×3 (05:04→17:32)
[2017-04-15] MEDS: cloNIDine HCL 0.2 MG TAB PO SCH ×3 (05:12→21:08)
[2017-04-15] MEDS: FOSPHENYTOIN INJ 200 MGPE in SODIUM CHLORIDE 0.9% INJ 50 ML IV SCH ×3 (05:25→22:48)
[2017-04-15 05:36] LABS: HEMATOCRIT 29.5 % (35.0-46.0); HEMOGLOBIN 9.8 GM/DL (11.6-15.3); MEAN CELL VOLUME 90.9 FL (80.0-100.0); MEAN CORPUSCULAR HEMOGLOBIN 30.2 PG (27.0-34.0); MEAN CORPUSCULAR HGB CONC 33.2 % (32.0-36.0); MEAN PLATELET VOLUME 7.7 FL (7.0-11.0); PLATELET COUNT 542 TH/MM3 (150-450); RED BLOOD COUNT 3.24 MIL/MM3 (4.00-5.30); RED CELL DISTRIBUTION WIDTH 15.7 % (11.6-17.2)
[2017-04-15] MEDS ORDERED: SODIUM BICARBONATE 8.4% INJ 50 MEQ/50 ML SYR IV PUSH ONE (05:45)
[2017-04-15 05:53] LABS: BICARBONATE 17.3 MEQ/L (21.0-32.0); CALCIUM 8.5 MG/DL (8.5-10.1); CREATININE 0.83 MG/DL (0.50-1.00)
[2017-04-15 05:54] LABS: PHENYTOIN (DILANTIN) 8.2 MCG/ML (10.0-20.0)
[2017-04-15] MEDS: INSULIN ASPART SUPPLEMENTAL SCALE SQ SCH ×4 (06:00→18:00)
--- NOTE | 2017-04-15 06:15 | RADRPT ---
EXAM DATE/TIME: 04/15/2017 05:28 [facility] COMPARISON: CHEST SINGLE AP, April 14, 2017, 6:33. INDICATIONS : Evaluate for pneumonia, Respiratory failure MEDICAL HISTORY : Cardiovascular disease. Diabetes mellitus type I. Osteoporosis. Polio, Cervical Cancer SURGICAL HISTORY : Appendectomy. Hysterectomy. Cholecystectomy. ENCOUNTER: Subsequent ACUITY: 2 weeks PAIN SCORE: Non-responsive. LOCATION: Bilateral chest FINDINGS: Single AP view of the chest. Endotracheal tube and nasogastric tube remain in place. Mild patchy left lung base opacity unchanged. No evidence of pleural effusion or pneumothorax. Cardiomediastinal silh ouette within normal limits. CONCLUSION: No significant interval change with persistent patchy left lung base atelectasis versus mild consolid ation. Kd Doty MD on April 15, 2017 at 6:12 Board Certified Radiologist. This report was verified electronically.
[2017-04-15] MEDS: PROPRANOLOL HCL 20 MG TAB PO SCH ×3 (08:10→19:58)
[2017-04-15] MEDS: LACTOBACILLUS ACIDOPHILUS 1 GM PACKET OG-TUBE SCH ×3 (08:10→17:32)
[2017-04-15] MEDS: LACOSAMIDE 100 MG TAB PO SCH ×2 (08:11→21:08)
[2017-04-15] MEDS: DOCUSATE SODIUM 50 MG/SENNA 8.6 MG TAB PO SCH ×2 (08:11→21:08)
[2017-04-15] MEDS: CLOPIDOGREL 75 MG TAB PO SCH (08:11)
[2017-04-15] MEDS: LANSOPRAZOLE SOLUTAB 30 MG TAB NG SCH (08:11)
[2017-04-15] MEDS: SODIUM CHLORIDE 0.9% FLUSH 10 ML FLUSH IV FLUSH SCH ×2 (08:12→21:09)
[2017-04-15] MEDS: CHLORHEXIDINE 0.12% (ORAL KIT) 15 ML CUP MT SCH ×2 (08:13→20:00)
[2017-04-15] MEDS: ARTIFICIAL TEARS OPTH SOLN 15 ML BTL EACH EYE SCH ×3 (08:14→17:32)
[2017-04-15] MEDS: POLYETHYLENE GLYCOL 17 GM PKG PO SCH ×2 (08:14→21:08)
[2017-04-15] MEDS: DEXMEDETOMIDINE INJ 1,000 MCG in SODIUM CHLOR 0.9% 250 ML INJ 240 ML IV PRN (09:22)
--- NOTE | 2017-04-15 12:51 | HHI.CCPN ---
Subjective Remarks/Hospital Course This is a 76-year-old female that presented to the ED for evaluation of altered mental status. Per report, according to EMS the patient normally is more alert and has a history of stroke, he was able to speak with the patient's sister who states that she is also power of transactional attorney, the patient apparently normally is ambulatory and can carry on a conversation without any difficulty. Per records reviewed, the patient was last seen normal and at her baseline at 1 am. The patient then sat down in her lazy chair, her sister also noted that she started beating her head against a piece of furniture. The patient was noted to have a right frontal contusion upon presentation to the ED .She had a GCS of 7-8 on arrival. The patient's medical history is significant for a recent admission 12/2016 for altered mental status, medication induced. Her past medical history is also significant for a recent history of UTI and C. difficile in addition to her history of having a CVA and reportedly residual effects in the right upper and lower extremity. Laboratory and imaging studies revealed that most likely the patient has a UTI, CT of the brain revealed no abnormality and the patient was noted to have an elevated lactate level. The patient was emergently intubated in the ED, and the patient was noted to be significantly hypertensive and a nicardipine infusion was instituted. Upon entering the ED the patient's blood pressure was noted to be 219/92, Cardizem infusion had been ordered. The patient was noted to have spontaneous movement of the right upper and lower extremity with a gag reflex. Critical care medicine was consulted. 04/04: The patient was weaned off of nicardipine infusion. Normotensive the patient continues on labetalol twice a day scheduled home dosing. EEG attempted last evening however due to patient's movement bilaterally to complete artifact EEG reordered. Fentanyl infusion discontinued for daily sedation vacation approximately 7 hours ago the patient remains nonresponsive. Opens eyes spontaneously, moves limbs spontaneously but does not follow any commands. Brain MRI/MRA, and CT all negative findings. EEG scheduled for a.m.. The patient continues in severe metabolic acidosis, 2 Amps of sodium bicarbonate IV push given this a.m., sodium bicarbonate infusion increased. Lactate is cleared, creatinine is improving, CT of the abdomen and pelvis is pending this afternoon. 04/05 CT report from yesterday shows bladder edema consistent with cystitis. URine culture with GNR Blood cultures NGTD. . Getting EEG now. 04/06: Resting comfortable in bed in no acute distress. No obvious seizure activity. Plan for lumbar puncture in AM. Low-grade temperatures overnight. Tolerating tube feeding at goal. No bowel movement 04/07: Continues EEG has been discontinued. Tmax 100. Currently 99.8. No bowel movement since admission. Tolerating tube feeds at goal. No active seizure activity overnight. 04/08: Tmax 100. Currently 99.9. Became tachycardic with sedation lowered so RN increased midazolam to 9 milligrams an hour. Also fentanyl drip at 250 mcg per hour. No bowel movement since admission. Tolerating tube feedings with only 40 cc residuals. Receiving methylnaltrexone milligrams subcutaneous 1 along with mineral oil and suppository. KUB pending. Patient improved neurological exam. Blinks with my suddenhand movements towards face. Positive gag. Withdraws to pain in all 4 extremities. 04/09 LP results not yet finalized. On versed 7 mg/hr and fentanyl 250 mcg/hr. EEG from 04/08 - no epileptiform features. 04/10 Weaning fentanyl down but remains on versed for seizure suppression. Because she had difficult to control subclinical seizures, will need close EEG monitoring for benzo weaning. Was breathing on PSV for couple of hours day, even on sedation. CSF negative final culture. No Leukocytosis or fever. Will stop antibiotic. Updated sister. 04/11: no seizures evident on EEG. slightly more awake today, but not following commands. had discussion with Dr. Martinez, will wean versed to 4mg/hr and re- evaluate on EEG tomorrow. 04/12: no seizures on EEG. ok to wean versed to off per Dr. Martinez. will work on waking and weaning mechanical ventilation. 04/13: acute drop in hgb. ordered 1 unit prbc. sent haptoglobin and LDH. pt awake following commands. fails SBT for RSBI > 110. Subjective 04/14: hgb improved. still awake, alert, following commands. extubated successfully. 04/15: Reintubated last night for worsening respiratory status. Currently orally intubated on mechanical ventilation, arousable easily follows commands. On Versed gtt. Objective Vital Signs Date Time Temp Pulse Resp B/P (MAP) Pulse Ox O2 Delivery O2 Flow Rate FiO2 04/15/17 11:36 95 35 04/15/17 08:00 99.3 96 25 149/68 (95) 04/14/17 21:00 Nasal Cannula 4.00 Intake and Output 04/15/17 04/15/17 04/16/17 08:00 16:00 00:00 Intake Total 150 ml 100 ml Output Total 300 ml Balance -150 ml 100 ml Result Diagram: 04/15/17 0457 04/15/17 0457 Other Results Microbiology Date/Time Source Procedure Growth Status 04/14/17 02:00 Stool Stool Stool Occult Blood (YOLANDA) - Final HEMOCCULT NEGATIVE Complete Laboratory Tests Test 04/14/17 22:50 04/15/17 04:50 Blood Gas Puncture Site RT RADIAL RT RADIAL Blood Gas Patient Temperature 98.6 98.6 Blood Gas HCO3 18 mmol/L (22-26) 15 mmol/L (22-26) Blood Gas Base Excess -6.2 mmol/L (-2-2) -8.4 mmol/L (-2-2) Blood Gas Oxygen Saturation 94 % (90-100) 97 % (90-100) Arterial Blood pH 7.42 (7.380-7.420) 7.43 (7.380-7.420) Arterial Blood Partial Pressure CO2 28 mmHg (38-42) 23 mmHg (38-42) Arterial Blood Partial Pressure O2 80 mmHg (61-120) 164 mmHg (61-120) Arterial Blood Oxygen Content 12.0 Vol % (12.0-20.0) 13.4 Vol % (12.0-20.0) Arterial Blood Carboxyhemoglobin 1.0 % (0-4) 0.8 % (0-4) Arterial Blood Methemoglobin 1.0 % (0-2) 1.0 % (0-2) Blood Gas Hemoglobin 9.1 G/DL (12.0-16.0) 9.6 G/DL (12.0-16.0) Oxygen Delivery Device NASAL CANNULA VENTILATOR Blood Gas Liter Flow 4 L/M Blood Gas Ventilator Setting PRVC/AC Blood Gas Inspired Oxygen 35 % Imaging Last Impressions Chest X-Ray 04/08/17 0600 Signed Impressions: Service Date/Time: Saturday, April 08, 2017 04:41 - CONCLUSION: No significant interval change. Kd Doty MD Lumbar Puncture Fluoroscopy 04/07/17 0000 Signed Impressions: Service Date/Time: March 09:39 - CONCLUSION: Uncomplicated fluoroscopically guided lumbar puncture. Harris Gamboa MD Brain MRI 04/07/17 0000 Signed Impressions: Service Date/Time: March 10:24 - CONCLUSION: No acute intracranial findings Kali Jerry MD Upper Extremity Ultrasound 04/06/17 0000 Signed Impressions: Service Date/Time: Thursday, April 06, 2017 21:32 - CONCLUSION: 1. No sonographic evidence for right upper extremity DVT. Harris Gamboa MD Lower Extremity Ultrasound 04/06/17 0000 Signed Impressions: Service Date/Time: Thursday, April 06, 2017 21:12 - CONCLUSION: 1. No sonographic evidence for lower extremity DVT. Harris Gamboa MD Abdomen/Pelvis CT 04/04/17 0000 Signed Impressions: Service Date/Time: Tuesday, April 04, 2017 16:05 - CONCLUSION: 1. Mild edema surrounding the urinary bladder, question cystitis. Moore catheter in place. 2. Status post cholecystectomy. 3. Left lower lobe atelectasis. 4. Nasogastric tube tip at the gastroesophageal junction. Kd Doty MD Neck Magnetic Resonance Angiography 04/03/17 1119 Signed Impressions: Service Date/Time: Monday, April 03, 2017 13:11 - CONCLUSION: Negative for hemodynamically significant carotid stenosis Roque Tripathi MD FACR Head Magnetic Resonance Angiography 04/03/17 1119 Signed Impressions: Service Date/Time: Monday, April 03, 2017 13:11 - CONCLUSION: Negative for major branch vessel occlusion. Roque Tripathi MD FACR Head CT 04/03/17 0851 Signed Impressions: Service Date/Time: Monday, April 03, 2017 09:02 - CONCLUSION: Negative for acute process.. Roque Tripathi MD FACR Cervical Spine CT 04/03/17 0000 Signed Impressions: Service Date/Time: Monday, April 03, 2017 09:07 - CONCLUSION: Fusion as above, negative for fracture. Roque Tripathi MD FACR Objective Remarks GENERAL: 76-year-old female currently orotracheally intubated SKIN: Warm and dry. HEAD: Atraumatic. Normocephalic. EYES: R periorbital ecchmosis. Pupils equal and round 1-2 mm bilaterally. No scleral icterus. No injection or drainage. ENT: No nasal bleeding or discharge. Mucous membranes pink and moist. NECK: Trachea midline. No JVD. CARDIOVASCULAR: RRR. RESPIRATORY: No accessory muscle use. Breath sounds equal bilaterally. GASTROINTESTINAL: Abdomen soft, non-tender, nondistended. No guarding. MUSCULOSKELETAL: Right upper extremity with 2+ edema and erythema. Negative Doppler ultrasound 04/06 for DVT NEUROLOGICAL: follows commands. RASS 0, orally intubated on mechanical ventilation moving both upper and lower extremities. A/P Assessment and Plan Assessment: 76yF with subclinical status which has been very difficult to control. now on multiple AEDs and finally without evidence of ongoing status. Resumed on Versed gtt. following reintubation on 04/14. Daily sedation vacation Neuro/Psych Post polio syndrome bilateral lower extremity weakness Status epilepticus History of CVATIA with R sided deficits - right lentiform nucleus H/O seizures Anxiety/depression Left maxillary/ethmoid fluid levels question sinusitis 04/07 interpretation EEG - Abnormal EEG due to some mild to moderate slowing, but also some occasional sharps and spike and slow waves seen, but improved from prior EEG's. Clinical correlation. [id number] milligrams twice a day will be continued. Loaded with fosphenytoin - currently fosphenytoin 200 mg IV every 8 hours. Leevel 13 04/09 Levetiracetam 500 mg IV every 6 hours Lorazepam 2 mg IV every 5 minutes as needed. Seizures TSH normal-3.0 Random cortisol level only 3.5. Unclear significance as patient had lactic acidemia but also hypertensive at the time. Recheck 04/07 12.3. Cosyntropin test ordered 04/08, had adequate response 04/03 MRI brain-Moderate periventricular white matter changes are evident. There is no restricted diffusion. There is moderate atrophy with dilatation of ventricular sulcal spaces. There are no extra-axial fluid collections appreciated. Posterior fossa is unremarkable. 04/03 MRA brain-negative for major branch occlusion 04/03 CT brain-no acute intracranial process MRI brain 04/07 - There is mild periventricular white matter T2 prolongation. A tiny lacunar infarct in the right lentiform nucleus appears old. There is no evidence of intracranial mass or hemorrhage. The brainstem and posterior fossa structures are unremarkable. There is nothing to suggest acute infarction. There is fluid in the left maxillary sinus and occasional ethmoid sinuses. Patient's home meds baclofen 10 mg 3 times a day, tramadol 50 mg every 4 hours as needed and sertraline 50 mg twice a day have been on hold due to concern for serotonin syndrome, seizure activity and rhabdomyolysis. Patient has history of altered mental status secondary to being medication induced. Reported by family member -the patient had discontinued baclofen for approximately 3 months and took her initial dose of baclofen on 04/02 with a TID schedule dosing. LP - HSV negative, final cx neg. Dr. Martinez actively following. Respiratory: Acute hypoxemic respiratory failure- improving. Reintubated and placed back on mechanical ventilation on 04/14 following extubation. Daily C Pap trials and will attempt to extubate again over next few days. aggressive pulmonary toilet. Maintain O2 sat greater than 92% Albuterol/ipratropium aerosols nebs every 6 hours scheduled, albuterol aerosols every 2 hours when necessary Cardiovascular: Hypertensive emergency-resolved History of hypertension Hyperlipidemia Congestive heart failure - ejection fraction 55-60% 2009 Labetalol, hydralazine IV , PRN to maintain SBP <160 Serial troponins were negative. propranolol 40mg po q6h given hypertension and tachycardia. On metoprolol 50 mg sustained release daily at home continue clopidogrel 75 mg by mouth daily/home medication Resumed 04/09 Continue pravastatin 40 mg by mouth daily/home medication for dyslipidemia clonidine 0.2mg po q8hr. Renal//FEN: Chronic kidney disease stage IIIB Hypo-magnesium Monitor urine output Monitor BMP Replete electrolytes as needed Previous Creatinine 12/2016- 1.15, upon admission 2.76, now at baseline GI: Esophageal stricture -history of esophageal dilatation GERD Elevated ammonia Constipation- resolved. Patient is currently on Glucerna 1.5 goal 50 cc per hour per nutrition's recommendations Lansoprazole 30 mg daily GI prophylaxis. On Dexlansoprazole 60 mg times daily at home Docusate sodium/senna 1 tablet twice a day for bowel regimen. polyethylene glycol 17 g twice a day and lactulose 30 cc 4x a day 1 dose of methylnaltrexone 12 MG SUBCUTANEOUS 1 AND 30 CC MINERAL OIL 1 Now having BMs after aggressive above bowel regimen. KUB 04/08 - mild ileus Ammonia level Recheck in a.m. 04/09 <10 formal swallow eval. ID: Escherichia coli UTI Monitor CBC Blood cultures 04/03 - negative Urine culture 04/03 - Escherichia coli, pansensitive Strep pneumococcal antigen 04/03 - negative CSF 04/07 Gram stain, fungal and AFB negative as of 04/08 Recent history of C. difficile colitis. Lactinex tid. off abx. monitor. reculture for fever. HEME/ONC: History of cervical cancer Normocytic anemia History of right lower extremity DVT - posterior tibial and femoral vein previously on Apixaban Clopidogrel 75 mg daily initially held for LP. Restarted 04/09 Lactate level 1.8 Recheck Dopplers bilateral and right upper lower extremities 04/07 negative for DVT 1 unit prbc f/u haptoglobin and LDH hold SQH guiac negative. hgb improved. will hold SQH one more day,then likely can restart. unclear etiology of hgb drop and may be secondary to dilutional lab draw. Endocrine: Diabetes mellitus Low cortisol Glucose monitoring per ICU protocol, low dose regimen Novulog every 6 hours Hold metformin thousand milligrams twice a day Prophylaxis: GI Prophylaxis Lansoprazole 30 mg daily DVT Prophylaxis -- SCDs hold SQH given anemia. Lines: Peripheral IVs. Requested PICC placement for vascular access Maxwell Rivera MD Apr 15, 2017 12:51
[2017-04-15] MEDS ORDERED: SODIUM CHLORIDE 0.9% FLUSH 10 ML FLUSH IV FLUSH PRN (13:15)
--- NOTE | 2017-04-15 13:33 | RADRPT ---
EXAM DATE/TIME: 04/15/2017 13:05 [facility] COMPARISON: CHEST SINGLE AP, April 15, 2017, 5:28. INDICATIONS : PICC line placement. MEDICAL HISTORY : Hypercholesterolemia. Hypertension. Diabetes mellitus type 2. seizures SURGICAL HISTORY : Fusion, cervical. Cholecystectomy. Hysterectomy. lumbar discectomy ENCOUNTER: Subsequent ACUITY: 4 - 6 days PAIN SCORE: Non-responsive. LOCATION: Bilateral chest FINDINGS: The cardiac silhouette is normal in transverse diameter. There is left lower lobe atelectasis versus pneumonia. A tracheostomy tube is in place in the midline. A PICC line is in place via right-sided ap proach with its tip in the region of the superior vena cava. CONCLUSION: 1. Uncomplicated PICC line placement. Frederic Nick MD on April 15, 2017 at 13:30 Board Certified Radiologist. This report was verified electronically.
[2017-04-15] MEDS: ACETAMINOPHEN 650 MG/20.3 ML UDC NG PRN (15:35)
[2017-04-15] MEDS ORDERED: POTASSIUM CHLORIDE 20 MEQ CONTROLLED RELEASE TAB PO ONE (17:15)
[2017-04-15] MEDS ORDERED: Vancomycin Consult Pharmacy 1 EA OTHER SCH (17:45)
[2017-04-15] MEDS ORDERED: VANCOMYCIN INJ 1,100 MG in SODIUM CHLOR 0.9% 250 ML INJ 250 ML IV SCH (17:45)
[2017-04-15] MEDS: PIPERACIL-TAZO 4.5 GM PREMIX 100 ML IV SCH (18:50)
[2017-04-15 19:38] LABS: BACTERIA, URINE MANY /hpf; BLOOD, URINE SMALL (NEG); GLUCOSE,URINE NEG (NEG); KETONE, URINE 40 mg/dL (NEG); MUCUS URINE FEW /lpf (OCC); NITRITE,URINE NEG (NEG); PH, URINE 5.5 (5.0-8.5); URINE COLOR YELLOW (YELLW/STRAW); URINE LEUKOCYTE ESTERASE LARGE (NEG); WHITE BLOOD CELL CLUMPS MANY
[2017-04-15 19:39] LABS: BILIRUBIN, URINE NEG (NEG)
[2017-04-15] MEDS ORDERED: VANCOMYCIN 1,500 MG/NS 500 ML IV ONE ×2 (20:00)
[2017-04-15] MEDS: PRAVASTATIN SOD 40 MG TAB PO SCH (21:08)
[2017-04-16] VITALS (24 sets, daily range): BP systolic 136–188; BP diastolic 67–92; PULSE 67–92; RESP 18–49; TEMP 98.4–102; O2SAT 95–100
[2017-04-16] MEDS: levETIRAcetam INJ 500 MG in SODIUM CHLORIDE 0.9% INJ 100 ML IV SCH ×4 (00:47→17:47)
[2017-04-16] MEDS: LACTULOSE SYRUP 20 GM/30 ML CUP PO SCH ×4 (00:48→17:48)
[2017-04-16] MEDS: CHLORHEXIDINE GLUCONATE 2 % 1 PACK (2 CLOTHS) TOP SCH (01:55)
[2017-04-16] MEDS: PROPRANOLOL HCL 20 MG TAB PO SCH ×4 (01:55→18:44)
[2017-04-16] MEDS: PIPERACIL-TAZO 4.5 GM PREMIX 100 ML IV SCH ×4 (05:08→17:48)
[2017-04-16] MEDS: INSULIN ASPART SUPPLEMENTAL SCALE SQ SCH ×4 (05:09→17:59)
[2017-04-16] MEDS: cloNIDine HCL 0.2 MG TAB PO SCH ×3 (05:09→23:14)
[2017-04-16] MEDS: FOSPHENYTOIN INJ 200 MGPE in SODIUM CHLORIDE 0.9% INJ 50 ML IV SCH ×3 (05:42→23:15)
[2017-04-16 05:44] LABS: HEMATOCRIT 22.8 % (35.0-46.0); HEMOGLOBIN 7.5 GM/DL (11.6-15.3); MEAN CELL VOLUME 90.3 FL (80.0-100.0); MEAN CORPUSCULAR HEMOGLOBIN 29.6 PG (27.0-34.0); MEAN CORPUSCULAR HGB CONC 32.8 % (32.0-36.0); MEAN PLATELET VOLUME 7.4 FL (7.0-11.0); PLATELET COUNT 419 TH/MM3 (150-450); RED BLOOD COUNT 2.52 MIL/MM3 (4.00-5.30); RED CELL DISTRIBUTION WIDTH 15.9 % (11.6-17.2); WHITE BLOOD COUNT 14.8 TH/MM3 (4.0-11.0)
[2017-04-16 06:08] LABS: BICARBONATE 19.8 MEQ/L (21.0-32.0); CREATININE 0.94 MG/DL (0.50-1.00)
[2017-04-16] MEDS: POTASSIUM CHLOR 40 MEQ PREMIX 100 ML IV PRN ×2 (06:53→14:02)
[2017-04-16 07:35] LABS: HEMATOCRIT 22.9 % (35.0-46.0); HEMOGLOBIN 7.5 GM/DL (11.6-15.3)
[2017-04-16] MEDS: LACTOBACILLUS ACIDOPHILUS 1 GM PACKET OG-TUBE SCH ×3 (08:18→17:48)
[2017-04-16] MEDS: CLOPIDOGREL 75 MG TAB PO SCH (08:18)
[2017-04-16] MEDS: LACOSAMIDE 100 MG TAB PO SCH ×2 (08:18→23:14)
[2017-04-16] MEDS: LANSOPRAZOLE SOLUTAB 30 MG TAB NG SCH (08:19)
[2017-04-16] MEDS: POLYETHYLENE GLYCOL 17 GM PKG PO SCH (08:19)
[2017-04-16] MEDS: DOCUSATE SODIUM 50 MG/SENNA 8.6 MG TAB PO SCH ×2 (08:19→21:00)
[2017-04-16] MEDS: SODIUM CHLORIDE 0.9% FLUSH 10 ML FLUSH IV FLUSH SCH ×2 (08:19)
[2017-04-16] MEDS: ARTIFICIAL TEARS OPTH SOLN 15 ML BTL EACH EYE SCH ×3 (08:20→17:48)
[2017-04-16] MEDS: CHLORHEXIDINE 0.12% (ORAL KIT) 15 ML CUP MT SCH (08:20)
--- NOTE | 2017-04-16 13:17 | HHI.CCPN ---
Subjective Remarks/Hospital Course This is a 76-year-old female that presented to the ED for evaluation of altered mental status. Per report, according to EMS the patient normally is more alert and has a history of stroke, he was able to speak with the patient's sister who states that she is also power of county attorney, the patient apparently normally is ambulatory and can carry on a conversation without any difficulty. Per records reviewed, the patient was last seen normal and at her baseline at 1 am. The patient then sat down in her lazy chair, her sister also noted that she started beating her head against a piece of furniture. The patient was noted to have a right frontal contusion upon presentation to the ED .She had a GCS of 7-8 on arrival. The patient's medical history is significant for a recent admission 12/2016 for altered mental status, medication induced. Her past medical history is also significant for a recent history of UTI and C. difficile in addition to her history of having a CVA and reportedly residual effects in the right upper and lower extremity. Laboratory and imaging studies revealed that most likely the patient has a UTI, CT of the brain revealed no abnormality and the patient was noted to have an elevated lactate level. The patient was emergently intubated in the ED, and the patient was noted to be significantly hypertensive and a nicardipine infusion was instituted. Upon entering the ED the patient's blood pressure was noted to be 219/92, Cardizem infusion had been ordered. The patient was noted to have spontaneous movement of the right upper and lower extremity with a gag reflex. Critical care medicine was consulted. 04/04: The patient was weaned off of nicardipine infusion. Normotensive the patient continues on labetalol twice a day scheduled home dosing. EEG attempted last evening however due to patient's movement bilaterally to complete artifact EEG reordered. Fentanyl infusion discontinued for daily sedation vacation approximately 7 hours ago the patient remains nonresponsive. Opens eyes spontaneously, moves limbs spontaneously but does not follow any commands. Brain MRI/MRA, and CT all negative findings. EEG scheduled for a.m.. The patient continues in severe metabolic acidosis, 2 Amps of sodium bicarbonate IV push given this a.m., sodium bicarbonate infusion increased. Lactate is cleared, creatinine is improving, CT of the abdomen and pelvis is pending this afternoon. 04/05 CT report from yesterday shows bladder edema consistent with cystitis. URine culture with GNR Blood cultures NGTD. . Getting EEG now. 04/06: Resting comfortable in bed in no acute distress. No obvious seizure activity. Plan for lumbar puncture in AM. Low-grade temperatures overnight. Tolerating tube feeding at goal. No bowel movement 04/07: Continues EEG has been discontinued. Tmax 100. Currently 99.8. No bowel movement since admission. Tolerating tube feeds at goal. No active seizure activity overnight. 04/08: Tmax 100. Currently 99.9. Became tachycardic with sedation lowered so RN increased midazolam to 9 milligrams an hour. Also fentanyl drip at 250 mcg per hour. No bowel movement since admission. Tolerating tube feedings with only 40 cc residuals. Receiving methylnaltrexone milligrams subcutaneous 1 along with mineral oil and suppository. KUB pending. Patient improved neurological exam. Blinks with my suddenhand movements towards face. Positive gag. Withdraws to pain in all 4 extremities. 04/09 LP results not yet finalized. On versed 7 mg/hr and fentanyl 250 mcg/hr. EEG from 04/08 - no epileptiform features. 04/10 Weaning fentanyl down but remains on versed for seizure suppression. Because she had difficult to control subclinical seizures, will need close EEG monitoring for benzo weaning. Was breathing on PSV for couple of hours day, even on sedation. CSF negative final culture. No Leukocytosis or fever. Will stop antibiotic. Updated sister. 04/11: no seizures evident on EEG. slightly more awake today, but not following commands. had discussion with Dr. Martinez, will wean versed to 4mg/hr and re- evaluate on EEG tomorrow. 04/12: no seizures on EEG. ok to wean versed to off per Dr. Martinez. will work on waking and weaning mechanical ventilation. 04/13: acute drop in hgb. ordered 1 unit prbc. sent haptoglobin and LDH. pt awake following commands. fails SBT for RSBI > 110. Subjective 04/14: hgb improved. still awake, alert, following commands. extubated successfully. 04/15: Reintubated last night for worsening respiratory status. Currently orally intubated on mechanical ventilation, arousable easily follows commands. On Versed gtt. 04/16: Remains orally intubated on mechanical ventilation. Pancultured and started on antibiotics on 04/15. Sputum growing Burkholderia Objective Vital Signs Date Time Temp Pulse Resp B/P (MAP) Pulse Ox O2 Delivery O2 Flow Rate FiO2 04/16/17 12:01 99 35 04/16/17 12:00 92 04/16/17 08:00 98.8 18 188/79 (115) 04/14/17 21:00 Nasal Cannula 4.00 Intake and Output 04/16/17 04/16/17 04/17/17 08:00 16:00 00:00 Intake Total 500 ml 200 ml Output Total 350 ml Balance 150 ml 200 ml Result Diagram: 04/16/17 0705 04/16/17 0506 Other Results Microbiology Date/Time Source Procedure Growth Status 04/14/17 02:00 Stool Stool Stool Occult Blood (YOLANDA) - Final HEMOCCULT NEGATIVE Complete 04/13/17 22:16 Sputum Endotracheal Gram Stain - Final Complete 04/13/17 22:16 Sputum Culture - Final Burkholderia Cepacia Complete Imaging Last Impressions Chest X-Ray 04/08/17 0600 Signed Impressions: Service Date/Time: Saturday, April 08, 2017 04:41 - CONCLUSION: No significant interval change. Kd Doty MD Lumbar Puncture Fluoroscopy 04/07/17 0000 Signed Impressions: Service Date/Time: March 09:39 - CONCLUSION: Uncomplicated fluoroscopically guided lumbar puncture. Harris Gamboa MD Brain MRI 04/07/17 0000 Signed Impressions: Service Date/Time: March 10:24 - CONCLUSION: No acute intracranial findings Kali Jerry MD Upper Extremity Ultrasound 04/06/17 0000 Signed Impressions: Service Date/Time: Thursday, April 06, 2017 21:32 - CONCLUSION: 1. No sonographic evidence for right upper extremity DVT. Harris Gamboa MD Lower Extremity Ultrasound 04/06/17 0000 Signed Impressions: Service Date/Time: Thursday, April 06, 2017 21:12 - CONCLUSION: 1. No sonographic evidence for lower extremity DVT. Harris Gamboa MD Abdomen/Pelvis CT 04/04/17 0000 Signed Impressions: Service Date/Time: Tuesday, April 04, 2017 16:05 - CONCLUSION: 1. Mild edema surrounding the urinary bladder, question cystitis. Moore catheter in place. 2. Status post cholecystectomy. 3. Left lower lobe atelectasis. 4. Nasogastric tube tip at the gastroesophageal junction. Kd Doty MD Neck Magnetic Resonance Angiography 04/03/17 1119 Signed Impressions: Service Date/Time: Monday, April 03, 2017 13:11 - CONCLUSION: Negative for hemodynamically significant carotid stenosis Roque Tripathi MD FACR Head Magnetic Resonance Angiography 04/03/17 1119 Signed Impressions: Service Date/Time: Monday, April 03, 2017 13:11 - CONCLUSION: Negative for major branch vessel occlusion. Roque Tripathi MD FACR Head CT 04/03/17 0851 Signed Impressions: Service Date/Time: Monday, April 03, 2017 09:02 - CONCLUSION: Negative for acute process.. Roque Tripathi MD FACR Cervical Spine CT 04/03/17 0000 Signed Impressions: Service Date/Time: Monday, April 03, 2017 09:07 - CONCLUSION: Fusion as above, negative for fracture. Roque Tripathi MD FACR Objective Remarks GENERAL: 76-year-old female currently orotracheally intubated SKIN: Warm and dry. HEAD: Atraumatic. Normocephalic. EYES: R periorbital ecchmosis. Pupils equal and round 1-2 mm bilaterally. No scleral icterus. No injection or drainage. ENT: No nasal bleeding or discharge. Mucous membranes pink and moist. NECK: Trachea midline. No JVD. CARDIOVASCULAR: RRR. RESPIRATORY: No accessory muscle use. Breath sounds equal bilaterally. GASTROINTESTINAL: Abdomen soft, non-tender, nondistended. No guarding. MUSCULOSKELETAL: Right upper extremity with 2+ edema and erythema. Negative Doppler ultrasound 04/06 for DVT NEUROLOGICAL: follows commands. RASS 0, orally intubated on mechanical ventilation moving both upper and lower extremities. A/P Assessment and Plan Assessment: 76yF with subclinical status which has been very difficult to control. now on multiple AEDs and finally without evidence of ongoing status. Resumed on Versed gtt. following reintubation on 04/14. Daily sedation vacation Neuro/Psych Post polio syndrome bilateral lower extremity weakness Status epilepticus History of CVATIA with R sided deficits - right lentiform nucleus H/O seizures Anxiety/depression Left maxillary/ethmoid fluid levels question sinusitis 04/07 interpretation EEG - Abnormal EEG due to some mild to moderate slowing, but also some occasional sharps and spike and slow waves seen, but improved from prior EEG's. Clinical correlation. [id number] milligrams twice a day will be continued. Loaded with fosphenytoin - currently fosphenytoin 200 mg IV every 8 hours. Leevel 13 04/09 Levetiracetam 500 mg IV every 6 hours Lorazepam 2 mg IV every 5 minutes as needed. Seizures TSH normal-3.0 Random cortisol level only 3.5. Unclear significance as patient had lactic acidemia but also hypertensive at the time. Recheck 04/07 12.3. Cosyntropin test ordered 04/08, had adequate response 04/03 MRI brain-Moderate periventricular white matter changes are evident. There is no restricted diffusion. There is moderate atrophy with dilatation of ventricular sulcal spaces. There are no extra-axial fluid collections appreciated. Posterior fossa is unremarkable. 04/03 MRA brain-negative for major branch occlusion 04/03 CT brain-no acute intracranial process MRI brain 04/07 - There is mild periventricular white matter T2 prolongation. A tiny lacunar infarct in the right lentiform nucleus appears old. There is no evidence of intracranial mass or hemorrhage. The brainstem and posterior fossa structures are unremarkable. There is nothing to suggest acute infarction. There is fluid in the left maxillary sinus and occasional ethmoid sinuses. Patient's home meds baclofen 10 mg 3 times a day, tramadol 50 mg every 4 hours as needed and sertraline 50 mg twice a day have been on hold due to concern for serotonin syndrome, seizure activity and rhabdomyolysis. Patient has history of altered mental status secondary to being medication induced. Reported by family member -the patient had discontinued baclofen for approximately 3 months and took her initial dose of baclofen on 04/02 with a TID schedule dosing. LP - HSV negative, final cx neg. Dr. Martinez actively following. Respiratory: Acute hypoxemic respiratory failure- improving. Reintubated and placed back on mechanical ventilation on 04/14 following extubation. Daily C Pap trials and will attempt to extubate again over next few days. aggressive pulmonary toilet. Maintain O2 sat greater than 92% Albuterol/ipratropium aerosols nebs every 6 hours scheduled, albuterol aerosols every 2 hours when necessary Cardiovascular: Hypertensive emergency-resolved History of hypertension Hyperlipidemia Congestive heart failure - ejection fraction 55-60% 2009 Labetalol, hydralazine IV , PRN to maintain SBP <160 Serial troponins were negative. propranolol 40mg po q6h given hypertension and tachycardia. On metoprolol 50 mg sustained release daily at home continue clopidogrel 75 mg by mouth daily/home medication Resumed 04/09 Continue pravastatin 40 mg by mouth daily/home medication for dyslipidemia clonidine 0.2mg po q8hr. Renal//FEN: Chronic kidney disease stage IIIB Hypo-magnesium Monitor urine output Monitor BMP Replete electrolytes as needed Previous Creatinine 12/2016- 1.15, upon admission 2.76, now at baseline GI: Esophageal stricture -history of esophageal dilatation GERD Elevated ammonia Constipation- resolved. Patient is currently on Glucerna 1.5 goal 50 cc per hour per nutrition's recommendations Lansoprazole 30 mg daily GI prophylaxis. On Dexlansoprazole 60 mg times daily at home Docusate sodium/senna 1 tablet twice a day for bowel regimen. polyethylene glycol 17 g twice a day and lactulose 30 cc 4x a day 1 dose of methylnaltrexone 12 MG SUBCUTANEOUS 1 AND 30 CC MINERAL OIL 1 Now having BMs after aggressive above bowel regimen. KUB 04/08 - mild ileus Ammonia level Recheck in a.m. 04/09 <10 formal swallow eval. ID: Sepsis Escherichia coli UTI Pneumonia Monitor CBC Blood cultures 04/03 - negative Urine culture 04/03 - Escherichia coli, pansensitive sputum 04/13: burkholderia Strep pneumococcal antigen 04/03 - negative CSF 04/07 Gram stain, fungal and AFB negative as of 04/08 Recent history of C. difficile colitis. Lactinex tid. monitor. reculture for fever. Started vancomycin/Zosyn on 04/15 for recurrent fever with leukocytosis and suspected sepsis secondary to pneumonia HEME/ONC: History of cervical cancer Normocytic anemia History of right lower extremity DVT - posterior tibial and femoral vein previously on Apixaban Clopidogrel 75 mg daily initially held for LP. Restarted 04/09 Lactate level 1.8 Recheck Dopplers bilateral and right upper lower extremities 04/07 negative for DVT 1 unit prbc f/u haptoglobin and LDH hold SQH guiac negative. hgb improved. will hold SQH one more day,then likely can restart. unclear etiology of hgb drop and may be secondary to dilutional lab draw. Endocrine: Diabetes mellitus Low cortisol Glucose monitoring per ICU protocol, low dose regimen Novulog every 6 hours Hold metformin thousand milligrams twice a day Prophylaxis: GI Prophylaxis Lansoprazole 30 mg daily DVT Prophylaxis -- SCDs hold SQH given anemia. Lines: right sided PICC Maxwell Rivera MD Apr 16, 2017 13:17
[2017-04-16] MEDS: ACETAMINOPHEN 650 MG/20.3 ML UDC NG PRN ×2 (16:04→23:14)
[2017-04-16] MEDS: VANCOMYCIN 1,000 MG/NS 250 ML IV SCH ×2 (16:05)
[2017-04-16] MEDS: DEXMEDETOMIDINE INJ 1,000 MCG in SODIUM CHLOR 0.9% 250 ML INJ 240 ML IV PRN (16:08)
--- NOTE | 2017-04-16 16:14 | HHI.PR ---
Review/Management Diagnosis subclinical status epilepticus. Clinically improved with no clinical SZ Plan Continue current level of cerebyx, keppra, vimpat. Phenytoin level corrected for hypoalbuminemia is 15.8 Diagnosis/Plan: Subjective Subjective Comments No acute events reported No sz Active Medications Current Medications Medications (Trade) Dose Ordered Sig/Georgie Route Start Time Stop Time Status Last Admin (NS Flush) 2 ml UNSCH PRN IV FLUSH 04/03/17 11:15 04/08/17 08:59 (NS Flush) 2 ml BID IV FLUSH 04/03/17 21:00 04/16/17 08:19 (Tears Naturale Opth Soln) 1 drop TID EACH EYE 04/03/17 13:00 04/16/17 12:25 Miscellaneous Information 1 Q361D XX 04/03/17 11:15 04/03/17 11:15 (Chlorhexidine 2% Cloth) Taper DAILY@04 TOP 04/04/17 04:00 03/31/18 03:59 04/16/17 01:55 (Chlorhexidine 2% Cloth) 3 pack UNSCH PRN TOP 04/03/17 11:15 (Jenn-Colace) 1 tab BID PO 04/03/17 21:00 04/15/17 21:08 (Milk Of Magnesia Liq) 30 ml Q12H PRN PO 04/03/17 11:15 (Senokot) 17.2 mg Q12H PRN PO 04/03/17 11:15 (Dulcolax Supp) 10 mg DAILY PRN RECTAL 04/03/17 11:15 04/08/17 15:19 (D50w (Vial) Inj) 50 ml UNSCH PRN IV PUSH 04/03/17 11:30 (Glucagon Inj) 1 mg UNSCH PRN OTHER 04/03/17 11:30 (Vimpat) 100 mg BID PO 04/03/17 14:15 04/16/17 08:18 (Pravachol) 40 mg HS PO 04/03/17 21:00 04/15/17 21:08 (Trandate Inj) 10 mg Q4H PRN IV PUSH 04/03/17 14:30 04/14/17 22:58 (Apresoline Inj) 20 mg Q4H PRN IV PUSH 04/03/17 14:30 04/15/17 01:22 (Lopressor) 25 mg Q6HR PO 04/03/17 21:00 Future Hold 04/11/17 12:05 Potassium Chloride 100 ml @ 50 mls/hr Q2H PRN IV 04/05/17 09:15 04/16/17 14:02 Potassium Chloride 100 ml @ 50 mls/hr Q2H PRN IV 04/05/17 09:15 04/05/17 15:57 (K-Lyte Cl Eff) 50 meq UNSCH PRN PO 04/05/17 09:15 Potassium Chloride 100 ml @ 25 mls/hr UNSCH PRN IV 04/05/17 09:15 Potassium Chloride 100 ml @ 50 mls/hr Q2H PRN IV 04/05/17 09:15 Magnesium Sulfate 4 gm/Sodium Chloride 100 ml @ 50 mls/hr UNSCH PRN IV 04/05/17 09:15 (Mag-Ox) 800 mg UNSCH PRN PO 04/05/17 09:15 Magnesium Sulfate 2 gm/Sodium Chloride 100 ml @ 50 mls/hr UNSCH PRN IV 04/05/17 09:15 (K-Phos) 2,000 mg Q4H PRN PO 04/05/17 09:15 Sodium Phosphate 30 mmol/Sodium Chloride 250 ml @ 42 mls/hr UNSCH PRN IV 04/05/17 09:15 (K-Phos) 2,000 mg UNSCH PRN PO/TUBE 04/05/17 09:15 Potassium Phosphate 30 mmol/ Sodium Chloride 260 ml @ 42 mls/hr UNSCH PRN IV 04/05/17 09:15 (Lactinex Pkt) 1 gm TID OG-TUBE 04/05/17 13:00 04/16/17 12:25 (Ativan Inj) 2 mg Q5M PRN IV PUSH 04/05/17 10:45 04/05/17 14:18 (Tylenol 650 Mg/ 20 ml Liq) 650 mg Q6H PRN NG 04/06/17 17:00 04/16/17 16:04 (NovoLOG SUPPLEMENTAL SCALE) 1 Q6HR SQ 04/06/17 18:00 04/13/17 05:50 (Albuterol Neb) 2.5 mg Q2HR NEB PRN NEB 04/06/17 17:00 (Prevacid Odt) 30 mg DAILY NG 04/07/17 09:00 04/16/17 08:19 Levetriacetam 500 mg/Sodium Chloride 105 ml @ 420 mls/hr Q6HR IV 04/07/17 12:00 04/16/17 12:25 (Miralax) 17 gm BID PO 04/07/17 21:00 04/15/17 21:08 (Plavix) 75 mg DAILY PO 04/09/17 09:00 04/16/17 08:18 (Heparin Inj) 5,000 units Q8HR SQ 04/08/17 22:00 Future Hold 04/13/17 05:43 (Lactulose Liq) 30 ml Q6HR PO 04/08/17 18:00 04/16/17 05:09 Fosphenytoin Sodium 200 mgpe/ Sodium Chloride 54 ml @ 216 mls/hr Q8HR IV 04/09/17 06:00 04/16/17 14:15 (Inderal) 40 mg Q6H PO 04/11/17 13:30 04/16/17 12:34 (Catapres) 0.2 mg Q8HR PO 04/12/17 22:00 04/16/17 14:00 (Peridex 0.12% Liq) 15 ml BID@08,20 MT 04/15/17 08:00 04/16/17 08:20 Midazolam HCl 100 ml @ 2 mls/hr TITRATE PRN IV 04/15/17 03:15 04/15/17 03:36 Dexmedetomidine HCl 1000 mcg/ Sodium Chloride 250 ml @ 3.8 mls/hr TITRATE PRN IV 04/15/17 08:45 04/16/17 16:08 (NS Flush) See Protocol DAILY IV FLUSH 04/16/17 09:00 (NS Flush) See Protocol UNSCH PRN IV FLUSH 04/15/17 13:15 (Heparin Central Flush) See Protocol DAILY IV FLUSH 04/16/17 09:00 (Heparin Central Flush) See Protocol UNSCH PRN IV FLUSH 04/15/17 13:15 (NS Flush) SEE PROTOCOL UNSCH PRN IV FLUSH 04/15/17 13:15 Piperacillin Sod/ Tazobactam Sod 100 ml @ 200 mls/hr Q6H IV 04/15/17 18:00 04/16/17 12:24 Pharmacy Profile Note 0 ml @ 0 mls/hr UNSCH OTHER 04/15/17 17:45 Vancomycin HCl 1000 mg/Sodium Chloride 250 ml @ 250 mls/hr Q18H IV 04/16/17 15:00 04/16/17 16:05 Miscellaneous Information SPECIFIC LAB TO BE DRAWN:VA... ONCE ONCE .XX 04/18/17 20:45 04/18/17 20:46 Allergies Allergies Coded Allergies Influenza Virus Vaccines (Unverified Allergy, Intermediate, 02/04/17) egg (Unverified Allergy, Intermediate, 02/04/17) codeine (Unverified Allergy, Mild, 02/04/17) meperidine (Unverified Allergy, Mild, 02/04/17) morphine (Unverified Allergy, Mild, 02/04/17) acetaminophen (Unverified Adverse Reaction, Mild, HEADACHE, 02/04/17) hydrocodone (Unverified Adverse Reaction, Mild, HEADACHE, 02/04/17) Exam I&O / VS 04/16/17 04/16/17 04/17/17 15:00 23:00 07:00 Intake Total 200 ml Balance 200 ml IV Total 200 ml Vital Signs Date Time Temp Pulse Resp B/P (MAP) Pulse Ox O2 Delivery O2 Flow Rate FiO2 04/16/17 14:52 98 34 04/16/17 14:00 83 04/16/17 12:01 99 35 04/16/17 12:00 92 04/16/17 12:00 98.6 92 49 188/92 (124) 99 04/16/17 10:00 79 04/16/17 08:46 96 35 04/16/17 08:00 67 04/16/17 08:00 98.8 67 18 188/79 (115) 100 04/16/17 06:00 68 04/16/17 06:00 68 20 149/73 (98) 100 04/16/17 05:00 71 04/16/17 05:00 71 20 153/68 (96) 96 04/16/17 04:31 98 35 04/16/17 04:00 67 04/16/17 04:00 98.4 70 20 171/71 (104) 97 04/16/17 03:00 76 20 177/77 (110) 99 04/16/17 03:00 76 04/16/17 02:00 71 04/16/17 02:00 71 20 144/74 (97) 96 04/16/17 01:00 69 04/16/17 01:00 69 20 171/71 (104) 95 04/16/17 00:30 97 35 04/16/17 00:00 98.4 78 20 147/67 (93) 98 04/16/17 00:00 78 04/15/17 23:00 74 04/15/17 23:00 74 20 142/66 (91) 96 04/15/17 22:00 76 04/15/17 22:00 76 20 160/72 (101) 98 04/15/17 21:35 99 35 04/15/17 21:00 79 20 150/67 (94) 98 04/15/17 21:00 79 04/15/17 20:00 79 20 149/65 (93) 98 04/15/17 20:00 79 04/15/17 19:00 81 04/15/17 19:00 98.7 81 20 133/62 (85) 99 04/15/17 19:00 74 04/15/17 18:30 77 04/15/17 18:00 79 04/15/17 17:30 80 04/15/17 17:00 80 04/15/17 16:30 81 04/15/17 16:30 81 22 106/53 (70) 96 Exam Comments opens eyes to voice and does follow commands PERRL withdraws BLE to tactile stimulation Objective Micro and Labs Laboratory Tests Test 04/15/17 17:55 04/16/17 05:06 04/16/17 07:05 Urine Color YELLOW Urine Turbidity CLOUDY Urine pH 5.5 Urine Specific [place] 1.023 Urine Protein 100 Urine Glucose (UA) NEG Urine Ketones 40 Urine Occult Blood SMALL Urine Nitrite NEG Urine Bilirubin NEG Urine Urobilinogen LESS THAN 2.0 Urine Leukocyte Esterase LARGE Urine RBC 134 Urine WBC Urine WBC Clumps MANY Urine Bacteria MANY Urine Mucus FEW Urine Yeast with Hyphae RARE Urine Yeast (Budding) RARE Microscopic Urinalysis Comment CATH-CULTURE IND White Blood Count 14.8 Red Blood Count 2.52 Hemoglobin 7.5 7.5 Hematocrit 22.8 22.9 Mean Corpuscular Volume 90.3 Mean Corpuscular Hemoglobin 29.6 Mean Corpuscular Hemoglobin Concent 32.8 Red Cell Distribution Width 15.9 Platelet Count 419 Mean Platelet Volume 7.4 Blood Urea Nitrogen 19 Creatinine 0.94 Random Glucose 151 Calcium Level 8.0 Sodium Level 143 Potassium Level 3.2 Chloride Level 111 Carbon Dioxide Level 19.8 Anion Gap 12 Estimat Glomerular Filtration Rate 58 Date/Time Source Procedure Growth Status 04/15/17 22:00 Blood Peripheral Aerobic Blood Culture - Preliminary NO GROWTH IN 1 DAY Resulted 04/15/17 22:00 Blood Peripheral Anaerobic Blood Culture - Preliminary NO GROWTH IN 1 DAY Resulted 04/07/17 09:47 Cerebral Spinal Fluid Lumbar Puncture Fungal Smear - Final NO FUNGAL ELEMENTS SEEN. Resulted 04/07/17 09:47 Cerebral Spinal Fluid Lumbar Puncture Fungal Culture - Preliminary NO GROWTH IN 1 WEEK Resulted 04/14/17 02:00 Stool Stool Stool Occult Blood (YOLANDA) - Final HEMOCCULT NEGATIVE Complete 04/15/17 17:55 Sputum Endotracheal Gram Stain - Final Resulted 04/15/17 17:55 Sputum Endotracheal Sputum Culture - Preliminary IMMATURE GROWTH - REINCUBATE Resulted 04/15/17 17:55 Urine Catheterized Urine Urine Culture - Preliminary IMMATURE GROWTH - REINCUBATE Resulted John Martinez MD PhD Apr 16, 2017 16:14
[2017-04-17] VITALS (17 sets, daily range): BP systolic 139–174; BP diastolic 65–91; PULSE 71–100; RESP 18–49; TEMP 98.5–99.5; O2SAT 92–100
[2017-04-17] MEDS: PIPERACIL-TAZO 4.5 GM PREMIX 100 ML IV SCH ×4 (01:00→17:24)
[2017-04-17] MEDS: levETIRAcetam INJ 500 MG in SODIUM CHLORIDE 0.9% INJ 100 ML IV SCH ×3 (01:01→17:23)
[2017-04-17] MEDS: INSULIN ASPART SUPPLEMENTAL SCALE SQ SCH ×4 (01:02→17:25)
[2017-04-17] MEDS: PROPRANOLOL HCL 20 MG TAB PO SCH ×3 (01:02→13:30)
[2017-04-17 04:18] LABS: HEMATOCRIT 22.5 % (35.0-46.0); HEMOGLOBIN 7.4 GM/DL (11.6-15.3); MEAN CELL VOLUME 90.5 FL (80.0-100.0); MEAN CORPUSCULAR HEMOGLOBIN 29.6 PG (27.0-34.0); MEAN CORPUSCULAR HGB CONC 32.8 % (32.0-36.0); MEAN PLATELET VOLUME 7.5 FL (7.0-11.0); PLATELET COUNT 387 TH/MM3 (150-450); RED BLOOD COUNT 2.49 MIL/MM3 (4.00-5.30); RED CELL DISTRIBUTION WIDTH 15.9 % (11.6-17.2); WHITE BLOOD COUNT 13.7 TH/MM3 (4.0-11.0)
[2017-04-17 04:39] LABS: BICARBONATE 20.7 MEQ/L (21.0-32.0); CALCIUM 8.3 MG/DL (8.5-10.1); CREATININE 1.04 MG/DL (0.50-1.00)
[2017-04-17] MEDS: FOSPHENYTOIN INJ 200 MGPE in SODIUM CHLORIDE 0.9% INJ 50 ML IV SCH ×3 (06:00→21:49)
[2017-04-17] MEDS: LACTULOSE SYRUP 20 GM/30 ML CUP PO SCH ×4 (06:00→17:25)
[2017-04-17] MEDS: ARTIFICIAL TEARS OPTH SOLN 15 ML BTL EACH EYE SCH ×3 (08:00→17:26)
[2017-04-17] MEDS: SODIUM CHLORIDE 0.9% FLUSH 10 ML FLUSH IV FLUSH SCH ×2 (08:00→08:02)
[2017-04-17] MEDS: VANCOMYCIN 1,000 MG/NS 250 ML IV SCH ×2 (08:00)
[2017-04-17] MEDS: LACTOBACILLUS ACIDOPHILUS 1 GM PACKET OG-TUBE SCH ×3 (08:01→17:24)
[2017-04-17] MEDS: DOCUSATE SODIUM 50 MG/SENNA 8.6 MG TAB PO SCH (08:01)
[2017-04-17] MEDS: LACOSAMIDE 100 MG TAB PO SCH (08:01)
[2017-04-17] MEDS: CLOPIDOGREL 75 MG TAB PO SCH (08:01)
[2017-04-17] MEDS: LANSOPRAZOLE SOLUTAB 30 MG TAB NG SCH (08:01)
[2017-04-17] MEDS: CHLORHEXIDINE 0.12% (ORAL KIT) 15 ML CUP MT SCH (08:02)
[2017-04-17] MEDS: POLYETHYLENE GLYCOL 17 GM PKG PO SCH (08:02)
--- NOTE | 2017-04-17 11:14 | HHI.PR ---
Review/Management Diagnosis subclinical status epilepticus. Clinically improved with no clinical SZ Plan Continue current level of cerebyx, keppra, vimpat. Phenytoin level corrected for hypoalbuminemia is 15.8 Diagnosis/Plan: Subjective Subjective Comments No acute events reported No sz Active Medications Current Medications Medications (Trade) Dose Ordered Sig/Georgie Route Start Time Stop Time Status Last Admin (NS Flush) 2 ml UNSCH PRN IV FLUSH 04/03/17 11:15 04/08/17 08:59 (NS Flush) 2 ml BID IV FLUSH 04/03/17 21:00 04/16/17 08:19 (Tears Naturale Opth Soln) 1 drop TID EACH EYE 04/03/17 13:00 04/17/17 08:00 Miscellaneous Information 1 Q361D XX 04/03/17 11:15 04/03/17 11:15 (Chlorhexidine 2% Cloth) Taper DAILY@04 TOP 04/04/17 04:00 03/31/18 03:59 04/16/17 01:55 (Chlorhexidine 2% Cloth) 3 pack UNSCH PRN TOP 04/03/17 11:15 (Jenn-Colace) 1 tab BID PO 04/03/17 21:00 04/15/17 21:08 (Milk Of Magnesia Liq) 30 ml Q12H PRN PO 04/03/17 11:15 (Senokot) 17.2 mg Q12H PRN PO 04/03/17 11:15 (Dulcolax Supp) 10 mg DAILY PRN RECTAL 04/03/17 11:15 04/08/17 15:19 (D50w (Vial) Inj) 50 ml UNSCH PRN IV PUSH 04/03/17 11:30 (Glucagon Inj) 1 mg UNSCH PRN OTHER 04/03/17 11:30 (Vimpat) 100 mg BID PO 04/03/17 14:15 04/17/17 08:01 (Pravachol) 40 mg HS PO 04/03/17 21:00 04/15/17 21:08 (Trandate Inj) 10 mg Q4H PRN IV PUSH 04/03/17 14:30 04/14/17 22:58 (Apresoline Inj) 20 mg Q4H PRN IV PUSH 04/03/17 14:30 04/15/17 01:22 (Lopressor) 25 mg Q6HR PO 04/03/17 21:00 Future Hold 04/11/17 12:05 Potassium Chloride 100 ml @ 50 mls/hr Q2H PRN IV 04/05/17 09:15 04/16/17 14:02 Potassium Chloride 100 ml @ 50 mls/hr Q2H PRN IV 04/05/17 09:15 04/05/17 15:57 (K-Lyte Cl Eff) 50 meq UNSCH PRN PO 04/05/17 09:15 Potassium Chloride 100 ml @ 25 mls/hr UNSCH PRN IV 04/05/17 09:15 Potassium Chloride 100 ml @ 50 mls/hr Q2H PRN IV 04/05/17 09:15 Magnesium Sulfate 4 gm/Sodium Chloride 100 ml @ 50 mls/hr UNSCH PRN IV 04/05/17 09:15 (Mag-Ox) 800 mg UNSCH PRN PO 04/05/17 09:15 Magnesium Sulfate 2 gm/Sodium Chloride 100 ml @ 50 mls/hr UNSCH PRN IV 04/05/17 09:15 (K-Phos) 2,000 mg Q4H PRN PO 04/05/17 09:15 Sodium Phosphate 30 mmol/Sodium Chloride 250 ml @ 42 mls/hr UNSCH PRN IV 04/05/17 09:15 (K-Phos) 2,000 mg UNSCH PRN PO/TUBE 04/05/17 09:15 Potassium Phosphate 30 mmol/ Sodium Chloride 260 ml @ 42 mls/hr UNSCH PRN IV 04/05/17 09:15 (Lactinex Pkt) 1 gm TID OG-TUBE 04/05/17 13:00 04/17/17 08:01 (Ativan Inj) 2 mg Q5M PRN IV PUSH 04/05/17 10:45 04/05/17 14:18 (Tylenol 650 Mg/ 20 ml Liq) 650 mg Q6H PRN NG 04/06/17 17:00 04/16/17 23:14 (NovoLOG SUPPLEMENTAL SCALE) 1 Q6HR SQ 04/06/17 18:00 04/17/17 01:02 (Albuterol Neb) 2.5 mg Q2HR NEB PRN NEB 04/06/17 17:00 (Prevacid Odt) 30 mg DAILY NG 04/07/17 09:00 04/17/17 08:01 Levetriacetam 500 mg/Sodium Chloride 105 ml @ 420 mls/hr Q6HR IV 04/07/17 12:00 04/17/17 01:01 (Miralax) 17 gm BID PO 04/07/17 21:00 04/15/17 21:08 (Plavix) 75 mg DAILY PO 04/09/17 09:00 04/17/17 08:01 (Heparin Inj) 5,000 units Q8HR SQ 04/08/17 22:00 Future Hold 04/13/17 05:43 (Lactulose Liq) 30 ml Q6HR PO 04/08/17 18:00 04/16/17 05:09 Fosphenytoin Sodium 200 mgpe/ Sodium Chloride 54 ml @ 216 mls/hr Q8HR IV 04/09/17 06:00 04/17/17 06:00 (Inderal) 40 mg Q6H PO 04/11/17 13:30 04/17/17 08:46 (Catapres) 0.2 mg Q8HR PO 04/12/17 22:00 04/16/17 23:14 (Peridex 0.12% Liq) 15 ml BID@08,20 MT 04/15/17 08:00 04/17/17 08:02 Midazolam HCl 100 ml @ 2 mls/hr TITRATE PRN IV 04/15/17 03:15 04/15/17 03:36 Dexmedetomidine HCl 1000 mcg/ Sodium Chloride 250 ml @ 3.8 mls/hr TITRATE PRN IV 04/15/17 08:45 04/16/17 16:08 (NS Flush) See Protocol DAILY IV FLUSH 04/16/17 09:00 (NS Flush) See Protocol UNSCH PRN IV FLUSH 04/15/17 13:15 (Heparin Central Flush) See Protocol DAILY IV FLUSH 04/16/17 09:00 (Heparin Central Flush) See Protocol UNSCH PRN IV FLUSH 04/15/17 13:15 (NS Flush) SEE PROTOCOL UNSCH PRN IV FLUSH 04/15/17 13:15 Piperacillin Sod/ Tazobactam Sod 100 ml @ 200 mls/hr Q6H IV 04/15/17 18:00 04/17/17 06:20 Pharmacy Profile Note 0 ml @ 0 mls/hr UNSCH OTHER 04/15/17 17:45 Vancomycin HCl 1000 mg/Sodium Chloride 250 ml @ 250 mls/hr Q18H IV 04/16/17 15:00 04/17/17 08:00 Miscellaneous Information SPECIFIC LAB TO BE DRAWN:VA... ONCE ONCE .XX 04/18/17 20:45 04/18/17 20:46 Allergies Allergies Coded Allergies Influenza Virus Vaccines (Unverified Allergy, Intermediate, 02/04/17) egg (Unverified Allergy, Intermediate, 02/04/17) codeine (Unverified Allergy, Mild, 02/04/17) meperidine (Unverified Allergy, Mild, 02/04/17) morphine (Unverified Allergy, Mild, 02/04/17) acetaminophen (Unverified Adverse Reaction, Mild, HEADACHE, 02/04/17) hydrocodone (Unverified Adverse Reaction, Mild, HEADACHE, 02/04/17) Exam I&O / VS 04/17/17 04/17/17 04/18/17 15:00 23:00 07:00 Intake Total 105 ml Balance 105 ml IV Total 105 ml Vital Signs Date Time Temp Pulse Resp B/P (MAP) Pulse Ox O2 Delivery O2 Flow Rate FiO2 04/17/17 10:00 78 04/17/17 08:32 100 T-piece 6.00 40 04/17/17 08:00 35 04/17/17 08:00 99.5 73 22 146/78 (100) 100 04/17/17 08:00 73 04/17/17 06:00 88 04/17/17 04:16 98 35 04/17/17 04:00 88 04/17/17 04:00 35 04/17/17 04:00 99.2 74 18 145/69 (94) 95 04/17/17 02:00 86 04/17/17 01:21 97 35 04/17/17 00:00 35 04/17/17 00:00 99.4 71 18 139/65 (89) 95 04/17/17 00:00 86 04/16/17 22:28 100 35 04/16/17 22:00 76 04/16/17 20:08 100 35 04/16/17 20:00 76 04/16/17 20:00 35 04/16/17 20:00 98.8 76 26 136/70 (92) 96 04/16/17 18:00 77 04/16/17 18:00 83 04/16/17 17:49 19 04/16/17 16:45 99.5 04/16/17 16:00 35 04/16/17 16:00 81 04/16/17 16:00 102.0 81 26 156/88 (110) 100 04/16/17 14:52 98 34 04/16/17 14:00 83 04/16/17 12:01 99 35 04/16/17 12:00 92 04/16/17 12:00 98.6 92 49 188/92 (124) 99 Exam Comments opens eyes to voice and does follow commands PERRL moves BUE equally with no drift Objective Micro and Labs Laboratory Tests Test 04/16/17 20:10 04/16/17 22:30 04/17/17 04:00 04/17/17 08:25 Potassium Level 4.5 3.9 3.6 White Blood Count 13.7 Red Blood Count 2.49 Hemoglobin 7.4 Hematocrit 22.5 Mean Corpuscular Volume 90.5 Mean Corpuscular Hemoglobin 29.6 Mean Corpuscular Hemoglobin Concent 32.8 Red Cell Distribution Width 15.9 Platelet Count 387 Mean Platelet Volume 7.5 Blood Urea Nitrogen 19 Creatinine 1.04 Random Glucose 138 Calcium Level 8.3 Sodium Level 145 Chloride Level 115 Carbon Dioxide Level 20.7 Anion Gap 9 Estimat Glomerular Filtration Rate 52 Phosphorus Level 2.8 Date/Time Source Procedure Growth Status 04/15/17 22:00 Blood Peripheral Aerobic Blood Culture - Preliminary NO GROWTH IN 2 DAYS Resulted 04/15/17 22:00 Blood Peripheral Anaerobic Blood Culture - Preliminary NO GROWTH IN 2 DAYS Resulted 04/07/17 09:47 Cerebral Spinal Fluid Lumbar Puncture Fungal Smear - Final NO FUNGAL ELEMENTS SEEN. Resulted 04/07/17 09:47 Cerebral Spinal Fluid Lumbar Puncture Fungal Culture - Preliminary NO GROWTH IN 1 WEEK Resulted 04/14/17 02:00 Stool Stool Stool Occult Blood (YOLANDA) - Final HEMOCCULT NEGATIVE Complete 04/15/17 17:55 Sputum Endotracheal Gram Stain - Final Resulted 04/15/17 17:55 Sputum Endotracheal Sputum Culture - Preliminary IMMATURE GROWTH - REINCUBATE Resulted 04/15/17 17:55 Urine Catheterized Urine Urine Culture - Preliminary Gram Negative Magdy Group D Enterococcus Resulted John Martinez MD PhD Apr 17, 2017 11:14
[2017-04-17] MEDS: hydrALAZINE HCL 20 MG/ML VIAL IV PUSH PRN (13:38)
[2017-04-17] MEDS: cloNIDine HCL 0.2 MG TAB PO SCH (14:00)
[2017-04-17] MEDS ORDERED: FUROSEMIDE 20 MG/2 ML VIAL IV PUSH ONE (14:15)
[2017-04-17] MEDS: RESP: ALBUTEROL 2.5 MG/3 ML NEB (PRN) NEB ×2 (15:28→20:34)
[2017-04-17] MEDS: RESP: ACETYLCYSTEINE 10% 30 ML NEB NEB SCH ×2 (15:29→20:35)
[2017-04-17] MEDS ORDERED: FUROSEMIDE 100 MG/10 ML VIAL IV PUSH ONE (16:15)
[2017-04-17] MEDS: ACETAMINOPHEN 1000 MG/100 ML 100 ML IV PRN ×2 (16:26→21:48)
--- NOTE | 2017-04-17 20:08 | HHI.CCPN ---
Subjective Remarks/Hospital Course This is a 76-year-old female that presented to the ED for evaluation of altered mental status. 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 Per records reviewed, the patient was last seen normal and at her baseline at 1 am. The patient then sat down in her lazy chair, her sister also noted that she started beating her head against a piece of furniture. The patient was noted to have a right frontal contusion upon presentation to the ED .She had a GCS of 7-8 on arrival. The patient's medical history is significant for a recent admission 12/2016 for altered mental status, medication induced. Her past medical history is also significant for a recent history of UTI and C. difficile in addition to her history of having a CVA and reportedly residual effects in the right upper and lower extremity. Laboratory and imaging studies revealed that most likely the patient has a UTI, CT of the brain revealed no abnormality and the patient was noted to have an elevated lactate level. The patient was emergently intubated in the ED, and the patient was noted to be significantly hypertensive and a nicardipine infusion was instituted. Upon entering the ED the patient's blood pressure was noted to be 219/92, Cardizem infusion had been ordered. The patient was noted to have spontaneous movement of the right upper and lower extremity with a gag reflex. Critical care medicine was consulted. 04/04: The patient was weaned off of nicardipine infusion. Normotensive the patient continues on labetalol twice a day scheduled home dosing. EEG attempted last evening however due to patient's movement bilaterally to complete artifact EEG reordered. Fentanyl infusion discontinued for daily sedation vacation approximately 7 hours ago the patient remains nonresponsive. Opens eyes spontaneously, moves limbs spontaneously but does not follow any commands. Brain MRI/MRA, and CT all negative findings. EEG scheduled for a.m.. The patient continues in severe metabolic acidosis, 2 Amps of sodium bicarbonate IV push given this a.m., sodium bicarbonate infusion increased. Lactate is cleared, creatinine is improving, CT of the abdomen and pelvis is pending this afternoon. 04/05 CT report from yesterday shows bladder edema consistent with cystitis. URine culture with GNR Blood cultures NGTD. . Getting EEG now. 04/06: Resting comfortable in bed in no acute distress. No obvious seizure activity. Plan for lumbar puncture in AM. Low-grade temperatures overnight. Tolerating tube feeding at goal. No bowel movement 04/07: Continues EEG has been discontinued. Tmax 100. Currently 99.8. No bowel movement since admission. Tolerating tube feeds at goal. No active seizure activity overnight. 04/08: Tmax 100. Currently 99.9. Became tachycardic with sedation lowered so RN increased midazolam to 9 milligrams an hour. Also fentanyl drip at 250 mcg per hour. No bowel movement since admission. Tolerating tube feedings with only 40 cc residuals. Receiving methylnaltrexone milligrams subcutaneous 1 along with mineral oil and suppository. KUB pending. Patient improved neurological exam. Blinks with my suddenhand movements towards face. Positive gag. Withdraws to pain in all 4 extremities. 04/09 LP results not yet finalized. On versed 7 mg/hr and fentanyl 250 mcg/hr. EEG from 04/08 - no epileptiform features. 04/10 Weaning fentanyl down but remains on versed for seizure suppression. Because she had difficult to control subclinical seizures, will need close EEG monitoring for benzo weaning. Was breathing on PSV for couple of hours day, even on sedation. CSF negative final culture. No Leukocytosis or fever. Will stop antibiotic. Updated sister. 04/11: no seizures evident on EEG. slightly more awake today, but not following commands. had discussion with Dr. Martinez, will wean versed to 4mg/hr and re- evaluate on EEG tomorrow. 04/12: no seizures on EEG. ok to wean versed to off per Dr. Martinez. will work on waking and weaning mechanical ventilation. 04/13: acute drop in hgb. ordered 1 unit prbc. sent haptoglobin and LDH. pt awake following commands. fails SBT for RSBI > 110. 04/14: hgb improved. still awake, alert, following commands. extubated successfully. 04/15: Reintubated last night for worsening respiratory status. Currently orally intubated on mechanical ventilation, arousable easily follows commands. On Versed gtt. 04/16: Remains orally intubated on mechanical ventilation. Pancultured and started on antibiotics on 04/15. Sputum growing Burkholderia Subjective 04/17: awake, sitting up, asking to be extubated. also asks to watch the football game today. tolerated 3 hours of t-piece trial. successfully extubated. after extubation, slightly tachypneic requiring NT suctioning, mucomyst nebs, and iv lasix. tachypneic in distress, but insists on non-invasive techniques for pulmonary toilet. patient does not want to be "DNR" but refuses any talks about reintubation right now. Objective Vital Signs Date Time Temp Pulse Resp B/P (MAP) Pulse Ox O2 Delivery O2 Flow Rate FiO2 04/17/17 18:00 90 04/17/17 17:25 28 04/17/17 16:00 98.6 169/77 (107) 96 04/17/17 11:36 Nasal Cannula 4 36 Intake and Output 04/17/17 04/17/17 04/18/17 08:00 16:00 00:00 Intake Total 868 ml 509 ml 365 ml Output Total 450 ml 1850 ml Balance 418 ml 509 ml -1485 ml Result Diagram: 04/17/17 0400 04/17/17 0400 Other Results Microbiology Date/Time Source Procedure Growth Status 04/15/17 17:55 Sputum Endotracheal Gram Stain - Final Complete 04/15/17 17:55 Sputum Culture - Final Burkholderia Cepacia Complete Laboratory Tests Test 04/17/17 11:13 Blood Gas Puncture Site RT RADIAL Blood Gas Patient Temperature 98.6 Blood Gas HCO3 16 mmol/L (22-26) Blood Gas Base Excess -8.3 mmol/L (-2-2) Blood Gas Oxygen Saturation 89 % (90-100) Arterial Blood pH 7.40 (7.380-7.420) Arterial Blood Partial Pressure CO2 25 mmHg (38-42) Arterial Blood Partial Pressure O2 62 mmHg (61-120) Arterial Blood Oxygen Content 10.2 Vol % (12.0-20.0) Arterial Blood Carboxyhemoglobin 1.1 % (0-4) Arterial Blood Methemoglobin 1.1 % (0-2) Blood Gas Hemoglobin 8.1 G/DL (12.0-16.0) Oxygen Delivery Device T-TUBE Blood Gas Liter Flow 6 L/M Blood Gas Inspired Oxygen 40 % Imaging Last Impressions Chest X-Ray 04/08/17 0600 Signed Impressions: Service Date/Time: Saturday, April 08, 2017 04:41 - CONCLUSION: No significant interval change. Kd Doty MD Lumbar Puncture Fluoroscopy 04/07/17 0000 Signed Impressions: Service Date/Time: March 09:39 - CONCLUSION: Uncomplicated fluoroscopically guided lumbar puncture. Harris Gamboa MD Brain MRI 04/07/17 0000 Signed Impressions: Service Date/Time: March 10:24 - CONCLUSION: No acute intracranial findings Kali Jerry MD Upper Extremity Ultrasound 04/06/17 0000 Signed Impressions: Service Date/Time: Thursday, April 06, 2017 21:32 - CONCLUSION: 1. No sonographic evidence for right upper extremity DVT. Harris Gamboa MD Lower Extremity Ultrasound 04/06/17 0000 Signed Impressions: Service Date/Time: Thursday, April 06, 2017 21:12 - CONCLUSION: 1. No sonographic evidence for lower extremity DVT. Harris Gamboa MD Abdomen/Pelvis CT 04/04/17 0000 Signed Impressions: Service Date/Time: Tuesday, April 04, 2017 16:05 - CONCLUSION: 1. Mild edema surrounding the urinary bladder, question cystitis. Moore catheter in place. 2. Status post cholecystectomy. 3. Left lower lobe atelectasis. 4. Nasogastric tube tip at the gastroesophageal junction. Kd Doty MD Neck Magnetic Resonance Angiography 04/03/17 1119 Signed Impressions: Service Date/Time: Monday, April 03, 2017 13:11 - CONCLUSION: Negative for hemodynamically significant carotid stenosis Roque Tripathi MD FACR Head Magnetic Resonance Angiography 04/03/17 1119 Signed Impressions: Service Date/Time: Monday, April 03, 2017 13:11 - CONCLUSION: Negative for major branch vessel occlusion. Roque Tripathi MD FACR Head CT 04/03/17 0851 Signed Impressions: Service Date/Time: Monday, April 03, 2017 09:02 - CONCLUSION: Negative for acute process.. Roque Tripathi MD FACR Cervical Spine CT 04/03/17 0000 Signed Impressions: Service Date/Time: Monday, April 03, 2017 09:07 - CONCLUSION: Fusion as above, negative for fracture. Roque Tripathi MD FACR Objective Remarks GENERAL: 76-year-old female sitting in bed on NRB. tachypneic in distress. SKIN: Warm and dry. HEAD: Atraumatic. Normocephalic. EYES: Pupils equal and round 1-2 mm bilaterally. No scleral icterus. No injection or drainage. ENT: No nasal bleeding or discharge. Mucous membranes pink and moist. NECK: Trachea midline. No JVD. CARDIOVASCULAR: RRR. RESPIRATORY: tachypneic. labored. on NRB. using accessory muscles. upper airway ronchi. minimal rales. GASTROINTESTINAL: Abdomen soft, non-tender, nondistended. No guarding. MUSCULOSKELETAL: Right upper extremity with 2+ edema and erythema. Negative Doppler ultrasound 04/06 for DVT NEUROLOGICAL: follows commands. RASS 0, A/P Assessment and Plan Assessment: 76yF admitted with subclinical status, now controlled. Now with persistent hypoxic respiratory failure. Phos levels normal. 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 Remains extubated, but very tenuous respiratory status. LTAC would be a good option for ongoing pulmonary rehab. 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 Clinical correlation. [id number] milligrams twice a day will be continued. Loaded with fosphenytoin - currently fosphenytoin 200 mg IV every 8 hours. Leevel 13 04/09 Levetiracetam 500 mg IV every 6 hours Lorazepam 2 mg IV every 5 minutes as needed. Seizures TSH normal-3.0 Random cortisol level only 3.5. Unclear significance as patient had lactic acidemia but also hypertensive at the time. Recheck 04/07 12.3. Cosyntropin test ordered 04/08, had adequate response 04/03 MRI brain-Moderate periventricular white matter changes are evident. There is no restricted diffusion. There is moderate atrophy with dilatation of ventricular sulcal spaces. There are no extra-axial fluid collections appreciated. Posterior fossa is unremarkable. 04/03 MRA brain-negative for major branch occlusion 04/03 CT brain-no acute intracranial process MRI brain 04/07 - There is mild periventricular white matter T2 prolongation. A tiny lacunar infarct in the right lentiform nucleus appears old. There is no evidence of intracranial mass or hemorrhage. The brainstem and posterior fossa structures are unremarkable. There is nothing to suggest acute infarction. There is fluid in the left maxillary sinus and occasional ethmoid sinuses. Patient's home meds baclofen 10 mg 3 times a day, tramadol 50 mg every 4 hours as needed and sertraline 50 mg twice a day have been on hold due to concern for serotonin syndrome, seizure activity and rhabdomyolysis. Patient has history of altered mental status secondary to being medication induced. Reported by family member -the patient had discontinued baclofen for approximately 3 months and took her initial dose of baclofen on 04/02 with a TID schedule dosing. LP - HSV negative, final cx neg. Dr. Martinez actively following. Respiratory: Acute hypoxemic respiratory failure- improving. Extubated 04/14, reintubated 04/14, extubated 04/17. aggressive pulmonary toilet. Maintain O2 sat greater than 92% Albuterol/ipratropium aerosols nebs every 6 hours scheduled, albuterol aerosols every 2 hours when necessary Cardiovascular: Hypertensive emergency-resolved History of hypertension Hyperlipidemia Congestive heart failure - ejection fraction 55-60% 2009 Labetalol, hydralazine IV , PRN to maintain SBP <160 Serial troponins were negative. propranolol 40mg po q6h given hypertension and tachycardia. On metoprolol 50 mg sustained release daily at home continue clopidogrel 75 mg by mouth daily/home medication Resumed 04/09 Continue pravastatin 40 mg by mouth daily/home medication for dyslipidemia clonidine 0.2mg po q8hr. Renal//FEN: Chronic kidney disease stage IIIB Hypo-magnesium Monitor urine output Monitor BMP Replete electrolytes as needed Previous Creatinine 12/2016- 1.15, upon admission 2.76, now at baseline GI: Esophageal stricture -history of esophageal dilatation GERD Elevated ammonia Constipation- resolved. Patient is currently on Glucerna 1.5 goal 50 cc per hour per nutrition's recommendations Lansoprazole 30 mg daily GI prophylaxis. On Dexlansoprazole 60 mg times daily at home Docusate sodium/senna 1 tablet twice a day for bowel regimen. polyethylene glycol 17 g twice a day and lactulose 30 cc 4x a day 1 dose of methylnaltrexone 12 MG SUBCUTANEOUS 1 AND 30 CC MINERAL OIL 1 Now having BMs after aggressive above bowel regimen. KUB 04/08 - mild ileus Ammonia level Recheck in a.m. 04/09 <10 formal swallow eval. ID: Sepsis Escherichia coli UTI Pneumonia Monitor CBC Blood cultures 04/03 - negative Urine culture 04/03 - Escherichia coli, pansensitive sputum 04/13: burkholderia Strep pneumococcal antigen 04/03 - negative CSF 04/07 Gram stain, fungal and AFB negative as of 04/08 urine culture 04/15: Group D enterococcus, GNRs. Recent history of C. difficile colitis. Lactinex tid. monitor. reculture for fever. Started vancomycin/Zosyn on 04/15 for recurrent fever with leukocytosis and suspected sepsis secondary to pneumonia. f/u sensitivities. HEME/ONC: History of cervical cancer Normocytic anemia History of right lower extremity DVT - posterior tibial and femoral vein previously on Apixaban Clopidogrel 75 mg daily initially held for LP. Restarted 04/09 Lactate level 1.8 Recheck Dopplers bilateral and right upper lower extremities 04/07 negative for DVT guiac negative. hgb improved. start SQH 5000 q12h. Endocrine: Diabetes mellitus Low cortisol Glucose monitoring per ICU protocol, low dose regimen Novulog every 6 hours Hold metformin thousand milligrams twice a day Prophylaxis: GI Prophylaxis Lansoprazole 30 mg daily DVT Prophylaxis -- SCDs restart SQH. Lines: right sided PICC dispo: would be appropriate for LTAC level care. Yogesh Guzman MD Apr 17, 2017 20:08
[2017-04-17] MEDS: PRAVASTATIN SOD 40 MG TAB PO SCH (21:00)
[2017-04-17] MEDS: HEPARIN SODIUM - SQ 10,000 UNITS/ML VIAL SQ SCH (21:49)
[2017-04-18] VITALS (14 sets, daily range): BP systolic 138–185; BP diastolic 65–114; PULSE 97–115; RESP 28–49; TEMP 97.7–99.8; O2SAT 95–100
[2017-04-18] MEDS: PIPERACIL-TAZO 4.5 GM PREMIX 100 ML IV SCH ×4 (01:50→17:37)
[2017-04-18] MEDS: levETIRAcetam INJ 500 MG in SODIUM CHLORIDE 0.9% INJ 100 ML IV SCH ×4 (01:51→17:37)
[2017-04-18] MEDS: RESP: ALBUTEROL 2.5 MG/3 ML NEB (PRN) NEB ×4 (03:53→20:37)
[2017-04-18] MEDS: RESP: ACETYLCYSTEINE 10% 30 ML NEB NEB SCH ×4 (03:54→20:39)
[2017-04-18] MEDS: FOSPHENYTOIN INJ 200 MGPE in SODIUM CHLORIDE 0.9% INJ 50 ML IV SCH ×2 (05:19→15:07)
[2017-04-18 05:50] LABS: HEMATOCRIT 27.9 % (35.0-46.0); HEMOGLOBIN 9.2 GM/DL (11.6-15.3); MEAN CELL VOLUME 91.9 FL (80.0-100.0); MEAN CORPUSCULAR HEMOGLOBIN 30.3 PG (27.0-34.0); MEAN PLATELET VOLUME 7.7 FL (7.0-11.0); PLATELET COUNT 609 TH/MM3 (150-450); RED BLOOD COUNT 3.04 MIL/MM3 (4.00-5.30); RED CELL DISTRIBUTION WIDTH 16.3 % (11.6-17.2); WHITE BLOOD COUNT 19.7 TH/MM3 (4.0-11.0)
[2017-04-18 06:16] LABS: BICARBONATE 13.2 MEQ/L (21.0-32.0); CALCIUM 8.5 MG/DL (8.5-10.1); CREATININE 1.06 MG/DL (0.50-1.00)
[2017-04-18] MEDS: PROPRANOLOL HCL 20 MG TAB PO SCH ×3 (07:30→19:30)
[2017-04-18] MEDS: CLOPIDOGREL 75 MG TAB PO SCH (09:00)
[2017-04-18] MEDS: LANSOPRAZOLE SOLUTAB 30 MG TAB NG SCH (09:00)
[2017-04-18] MEDS: LACOSAMIDE 100 MG TAB PO SCH ×2 (09:00→22:40)
[2017-04-18] MEDS: LACTOBACILLUS ACIDOPHILUS 1 GM PACKET OG-TUBE SCH ×3 (09:00→17:32)
[2017-04-18] MEDS: POLYETHYLENE GLYCOL 17 GM PKG PO SCH ×2 (09:00→21:00)
[2017-04-18] MEDS: DOCUSATE SODIUM 50 MG/SENNA 8.6 MG TAB PO SCH ×2 (09:00→22:40)
[2017-04-18] MEDS: CHLORHEXIDINE 0.12% (ORAL KIT) 15 ML CUP MT SCH ×2 (09:30→20:00)
[2017-04-18] MEDS: SODIUM CHLORIDE 0.9% FLUSH 10 ML FLUSH IV FLUSH SCH ×3 (09:32→20:28)
[2017-04-18] MEDS: ARTIFICIAL TEARS OPTH SOLN 15 ML BTL EACH EYE SCH ×3 (09:33→17:38)
[2017-04-18] MEDS: HEPARIN SODIUM - SQ 10,000 UNITS/ML VIAL SQ SCH ×2 (09:35→20:26)
[2017-04-18] MEDS: hydrALAZINE HCL 20 MG/ML VIAL IV PUSH PRN ×2 (10:50→15:07)
[2017-04-18] MEDS: INSULIN ASPART SUPPLEMENTAL SCALE SQ SCH ×3 (12:00→23:55)
[2017-04-18] MEDS: LACTULOSE SYRUP 20 GM/30 ML CUP PO SCH ×2 (12:00→17:32)
--- NOTE | 2017-04-18 12:17 | HHI.CCPN ---
Subjective Remarks/Hospital Course This is a 76-year-old female that presented to the ED for evaluation of altered mental status. Per report, according to EMS the patient normally is more alert and has a history of stroke, he was able to speak with the patient's sister who states that she is also power of assistant city attorney, the patient apparently normally is ambulatory and can carry on a conversation without any difficulty. Per records reviewed, the patient was last seen normal and at her baseline at 1 am. The patient then sat down in her lazy chair, her sister also noted that she started beating her head against a piece of furniture. The patient was noted to have a right frontal contusion upon presentation to the ED .She had a GCS of 7-8 on arrival. The patient's medical history is significant for a recent admission 12/2016 for altered mental status, medication induced. Her past medical history is also significant for a recent history of UTI and C. difficile in addition to her history of having a CVA and reportedly residual effects in the right upper and lower extremity. Laboratory and imaging studies revealed that most likely the patient has a UTI, CT of the brain revealed no abnormality and the patient was noted to have an elevated lactate level. The patient was emergently intubated in the ED, and the patient was noted to be significantly hypertensive and a nicardipine infusion was instituted. Upon entering the ED the patient's blood pressure was noted to be 219/92, Cardizem infusion had been ordered. The patient was noted to have spontaneous movement of the right upper and lower extremity with a gag reflex. Critical care medicine was consulted. 04/04: The patient was weaned off of nicardipine infusion. Normotensive the patient continues on labetalol twice a day scheduled home dosing. EEG attempted last evening however due to patient's movement bilaterally to complete artifact EEG reordered. Fentanyl infusion discontinued for daily sedation vacation approximately 7 hours ago the patient remains nonresponsive. Opens eyes spontaneously, moves limbs spontaneously but does not follow any commands. Brain MRI/MRA, and CT all negative findings. EEG scheduled for a.m.. The patient continues in severe metabolic acidosis, 2 Amps of sodium bicarbonate IV push given this a.m., sodium bicarbonate infusion increased. Lactate is cleared, creatinine is improving, CT of the abdomen and pelvis is pending this afternoon. 04/05 CT report from yesterday shows bladder edema consistent with cystitis. URine culture with GNR Blood cultures NGTD. . Getting EEG now. 04/06: Resting comfortable in bed in no acute distress. No obvious seizure activity. Plan for lumbar puncture in AM. Low-grade temperatures overnight. Tolerating tube feeding at goal. No bowel movement 04/07: Continues EEG has been discontinued. Tmax 100. Currently 99.8. No bowel movement since admission. Tolerating tube feeds at goal. No active seizure activity overnight. 04/08: Tmax 100. Currently 99.9. Became tachycardic with sedation lowered so RN increased midazolam to 9 milligrams an hour. Also fentanyl drip at 250 mcg per hour. No bowel movement since admission. Tolerating tube feedings with only 40 cc residuals. Receiving methylnaltrexone milligrams subcutaneous 1 along with mineral oil and suppository. KUB pending. Patient improved neurological exam. Blinks with my suddenhand movements towards face. Positive gag. Withdraws to pain in all 4 extremities. 04/09 LP results not yet finalized. On versed 7 mg/hr and fentanyl 250 mcg/hr. EEG from 04/08 - no epileptiform features. 04/10 Weaning fentanyl down but remains on versed for seizure suppression. Because she had difficult to control subclinical seizures, will need close EEG monitoring for benzo weaning. Was breathing on PSV for couple of hours day, even on sedation. CSF negative final culture. No Leukocytosis or fever. Will stop antibiotic. Updated sister. 04/11: no seizures evident on EEG. slightly more awake today, but not following commands. had discussion with Dr. Martinez, will wean versed to 4mg/hr and re- evaluate on EEG tomorrow. 04/12: no seizures on EEG. ok to wean versed to off per Dr. Martinez. will work on waking and weaning mechanical ventilation. 04/13: acute drop in hgb. ordered 1 unit prbc. sent haptoglobin and LDH. pt awake following commands. fails SBT for RSBI > 110. 04/14: hgb improved. still awake, alert, following commands. extubated successfully. 04/15: Reintubated last night for worsening respiratory status. Currently orally intubated on mechanical ventilation, arousable easily follows commands. On Versed gtt. 04/16: Remains orally intubated on mechanical ventilation. Pancultured and started on antibiotics on 04/15. Sputum growing Burkholderia Subjective 04/17: awake, sitting up, asking to be extubated. also asks to watch the football game today. tolerated 3 hours of t-piece trial. successfully extubated. after extubation, slightly tachypneic requiring NT suctioning, mucomyst nebs, and iv lasix. tachypneic in distress, but insists on non-invasive techniques for pulmonary toilet. patient does not want to be "DNR" but refuses any talks about reintubation right now. 04/18 Patient was extubated yesterday. Hypertensive, on partial rebreather. Objective Vital Signs Date Time Temp Pulse Resp B/P (MAP) Pulse Ox O2 Delivery O2 Flow Rate FiO2 04/18/17 09:09 99 Partial Rebreather 12.00 04/18/17 06:00 100 04/18/17 04:00 99.8 30 168/86 (113) 04/17/17 11:36 36 Intake and Output 04/18/17 04/18/17 04/19/17 08:00 16:00 00:00 Intake Total 389 ml Output Total 2450 ml Balance -2061 ml Result Diagram: 04/18/17 0430 04/18/17 0430 Other Results Laboratory Tests Test 04/18/17 04:30 White Blood Count 19.7 TH/MM3 Red Blood Count 3.04 MIL/MM3 Hemoglobin 9.2 GM/DL Hematocrit 27.9 % Mean Corpuscular Volume 91.9 FL Mean Corpuscular Hemoglobin 30.3 PG Mean Corpuscular Hemoglobin Concent 33.0 % Red Cell Distribution Width 16.3 % Platelet Count 609 TH/MM3 Mean Platelet Volume 7.7 FL Blood Urea Nitrogen 20 MG/DL Creatinine 1.06 MG/DL Random Glucose 128 MG/DL Calcium Level 8.5 MG/DL Sodium Level 142 MEQ/L Potassium Level 2.7 MEQ/L Chloride Level 109 MEQ/L Carbon Dioxide Level 13.2 MEQ/L Anion Gap 20 MEQ/L Estimat Glomerular Filtration Rate 51 ML/MIN Imaging Last Impressions Chest X-Ray 04/15/17 0000 Signed Impressions: Service Date/Time: Saturday, April 15, 2017 13:05 - CONCLUSION: 1. Uncomplicated PICC line placement. Frederic Nick MD Abdomen X-Ray 04/08/17 0000 Signed Impressions: Service Date/Time: Saturday, April 08, 2017 20:00 - CONCLUSION: Nonspecific , nonobstructive bowel gas pattern which to represent a mild ileus. Nasogastric tube is in place. Alvaro Best MD Lumbar Puncture Fluoroscopy 04/07/17 0000 Signed Impressions: Service Date/Time: March 09:39 - CONCLUSION: Uncomplicated fluoroscopically guided lumbar puncture. Harris Gamboa MD Brain MRI 04/07/17 0000 Signed Impressions: Service Date/Time: March 10:24 - CONCLUSION: No acute intracranial findings Kali Jerry MD Upper Extremity Ultrasound 04/06/17 0000 Signed Impressions: Service Date/Time: Thursday, April 06, 2017 21:32 - CONCLUSION: 1. No sonographic evidence for right upper extremity DVT. Harris Gamboa MD Lower Extremity Ultrasound 04/06/17 0000 Signed Impressions: Service Date/Time: Thursday, April 06, 2017 21:12 - CONCLUSION: 1. No sonographic evidence for lower extremity DVT. Harris Gamboa MD Abdomen/Pelvis CT 04/04/17 0000 Signed Impressions: Service Date/Time: Tuesday, April 04, 2017 16:05 - CONCLUSION: 1. Mild edema surrounding the urinary bladder, question cystitis. Moore catheter in place. 2. Status post cholecystectomy. 3. Left lower lobe atelectasis. 4. Nasogastric tube tip at the gastroesophageal junction. Kd Doty MD Neck Magnetic Resonance Angiography 04/03/17 1119 Signed Impressions: Service Date/Time: Monday, April 03, 2017 13:11 - CONCLUSION: Negative for hemodynamically significant carotid stenosis Roque Tripathi MD FACR Head Magnetic Resonance Angiography 04/03/17 1119 Signed Impressions: Service Date/Time: Monday, April 03, 2017 13:11 - CONCLUSION: Negative for major branch vessel occlusion. Roque Tripathi MD FACR Head CT 04/03/17 0851 Signed Impressions: Service Date/Time: Monday, April 03, 2017 09:02 - CONCLUSION: Negative for acute process.. oRque Tripathi MD FACR Cervical Spine CT 04/03/17 0000 Signed Impressions: Service Date/Time: Harpreet, April 03, 2017 09:07 - CONCLUSION: Fusion as above, negative for fracture. Roque Tripathi MD FACR Objective Remarks GENERAL: 76-year-old female sitting in bed on partial rebreather SKIN: Warm and dry. HEAD: Atraumatic. Normocephalic. EYES: Pupils equal and round 1-2 mm bilaterally. No scleral icterus. No injection or drainage. ENT: No nasal bleeding or discharge. Mucous membranes pink and moist. NECK: Trachea midline. No JVD. CARDIOVASCULAR: RRR. RESPIRATORY: Diffuse coarse BS/crackles. GASTROINTESTINAL: Abdomen soft, non-tender, nondistended. No guarding. MUSCULOSKELETAL: Right upper extremity with 2+ edema and erythema. Negative Doppler ultrasound 04/06 for DVT NEUROLOGICAL: follows commands. RASS 0, A/P Assessment and Plan Assessment: 76yF admitted with subclinical status, now controlled. Now with persistent hypoxic respiratory failure. Phos levels normal. 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 Remains extubated, but very tenuous respiratory status. LTAC would be a good option for ongoing pulmonary rehab. 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 Clinical correlation. [id number] milligrams twice a day will be continued. Loaded with fosphenytoin - currently fosphenytoin 200 mg IV every 8 hours. Level 8.2 on 03/15 Levetiracetam 500 mg IV every 6 hours Lorazepam 2 mg IV every 5 minutes as needed. Seizures TSH normal-3.0 Random cortisol level only 3.5. Unclear significance as patient had lactic acidemia but also hypertensive at the time. Recheck 04/07 12.3. Cosyntropin test ordered 04/08, had adequate response 04/03 MRI brain-Moderate periventricular white matter changes are evident. There is no restricted diffusion. There is moderate atrophy with dilatation of ventricular sulcal spaces. There are no extra-axial fluid collections appreciated. Posterior fossa is unremarkable. 04/03 MRA brain-negative for major branch occlusion 04/03 CT brain-no acute intracranial process MRI brain 04/07 - There is mild periventricular white matter T2 prolongation. A tiny lacunar infarct in the right lentiform nucleus appears old. There is no evidence of intracranial mass or hemorrhage. The brainstem and posterior fossa structures are unremarkable. There is nothing to suggest acute infarction. There is fluid in the left maxillary sinus and occasional ethmoid sinuses. Patient's home meds baclofen 10 mg 3 times a day, tramadol 50 mg every 4 hours as needed and sertraline 50 mg twice a day have been on hold due to concern for serotonin syndrome, seizure activity and rhabdomyolysis. Patient has history of altered mental status secondary to being medication induced. Reported by family member -the patient had discontinued baclofen for approximately 3 months and took her initial dose of baclofen on 04/02 with a TID schedule dosing. LP - HSV negative, final cx neg. Dr. Martinez actively following. Respiratory: Acute hypoxemic respiratory failure- improving. Extubated 04/14, reintubated 04/14, extubated 04/17. aggressive pulmonary toilet. Maintain O2 sat greater than 92% Albuterol/ipratropium aerosols nebs every 6 hours scheduled, albuterol aerosols every 2 hours when necessary Cardiovascular: Hypertensive emergency-resolved History of hypertension Hyperlipidemia Congestive heart failure - ejection fraction 55-60% 2009 Labetalol, hydralazine IV , PRN to maintain SBP <160 Serial troponin were negative. propranolol 40mg po q6h given hypertension and tachycardia. On metoprolol 50 mg sustained release daily at home continue clopidogrel 75 mg by mouth daily/home medication Resumed 04/09 Continue pravastatin 40 mg by mouth daily/home medication for dyslipidemia clonidine 0.2mg po q8hr. Renal//FEN: Chronic kidney disease stage IIIB Hypokalemia Monitor renal function, electrolytes replacement per protocol. For K replacement today Given Lasix 100mg IV total yesterday GI: Esophageal stricture -history of esophageal dilatation GERD Elevated ammonia Constipation- resolved. Speech eval, diet per speech Lansoprazole 30 mg daily GI prophylaxis. On Dexlansoprazole 60 mg times daily at home Docusate sodium/senna 1 tablet twice a day for bowel regimen. polyethylene glycol 17 g twice a day and lactulose 30 cc 4x a day KUB 04/08 - mild ileus Ammonia level Recheck in a.m. 04/09 <10 ID: Sepsis Escherichia coli UTI Pneumonia Monitor CBC Blood cultures 04/03 - negative Urine culture 04/03 - Escherichia coli, pansensitive sputum 04/13: Burkholderia Strep pneumococcal antigen 04/03 - negative CSF 04/07 Gram stain, fungal and AFB negative as of 04/08 urine culture 04/15: Group D enterococcus, Burkholderia Recent history of C. difficile colitis. Lactinex tid. Continue vancomycin/Zosyn started on 04/15 HEME/ONC: History of cervical cancer Normocytic anemia History of right lower extremity DVT - posterior tibial and femoral vein previously on Apixaban Clopidogrel 75 mg daily initially held for LP. Restarted 04/09 Lactate level 1.8 Recheck Doppler bilateral and right upper lower extremities 04/07 negative for DVT guaiac negative. Monitor CBC Endocrine: Diabetes mellitus Low cortisol Glucose monitoring per ICU protocol, low dose regimen Novulog every 6 hours Hold metformin thousand milligrams twice a day Prophylaxis: GI Prophylaxis Lansoprazole 30 mg daily DVT Prophylaxis -- SCDs SQH. Lines: right sided PICC Dispo: would be appropriate for LTAC level care. Level 2 Lian Cuellar MD Apr 18, 2017 12:17
[2017-04-18] MEDS: POTASSIUM CHLOR 40 MEQ PREMIX 100 ML IV PRN ×2 (12:30→17:40)
[2017-04-18] MEDS: cloNIDine HCL 0.2 MG TAB PO SCH ×2 (14:00→22:00)
[2017-04-18 14:20] LABS: MAGNESIUM 1.6 MG/DL (1.5-2.5); PHOSPHORUS 3.4 MG/DL (2.5-4.9)
--- NOTE | 2017-04-18 16:56 | RADRPT ---
EXAM DATE/TIME: 04/18/2017 16:26 [facility] COMPARISON: CHEST SINGLE AP, April 15, 2017, 13:05. INDICATIONS : Short of breath. MEDICAL HISTORY : Hypercholesterolemia. Hypertension Diabetes mellitus type II. Siezures. SURGICAL HISTORY : Fusion, cervical. Cholecystectomy. Hysterectomy. Lumbar discectomy. ENCOUNTER: Subsequent ACUITY: 3 days PAIN SCORE: Non-responsive. LOCATION: Bilateral chest FINDINGS: A single view of the chest demonstrates the lungs to be symmetrically aerated with persistent left ba silar airspace disease and possible associated effusion. Developing airspace disease in the right upp er lung. Patient has been extubated and the nasogastric tube removed right upper extremity PICC line remains unchanged in position with the tip projecting over the central venous system. Heart size is n ormal. Osseous structures are intact. CONCLUSION: 1. Persistent left basilar airspace disease/consolidation with possible associated effusion. 2. Developing airspace infiltrate in the right upper lung. 3. Patient has been extubated and the nasogastric tube removed. Right upper extremity PICC line is un changed in position. Juan Singleton MD on April 18, 2017 at 16:51 Board Certified Radiologist. This report was verified electronically.
[2017-04-18] MEDS ORDERED: PROPOFOL 500 MG/50 ML INJ 50 ML ONE (17:43)
[2017-04-18] MEDS ORDERED: ETOMIDATE 40 MG/20 ML VIAL ONE (17:43)
[2017-04-18] MEDS ORDERED: SODIUM BICARBONATE 8.4% INJ 50 MEQ/50 ML SYR IV PUSH ONE (17:45)
--- NOTE | 2017-04-18 18:35 | RADRPT ---
EXAM DATE/TIME: 04/18/2017 18:04 [facility] COMPARISON: No previous studies available for comparison. INDICATIONS : Post intubation. MEDICAL HISTORY : Hypercholesterolemia. Hypertension Diabetes mellitus type II. Siezures. SURGICAL HISTORY : Fusion, cervical. Cholecystectomy. Hysterectomy. Lumbar discectomy. ENCOUNTER: Subsequent ACUITY: 3 days PAIN SCORE: Non-responsive. LOCATION: Bilateral chest FINDINGS: A single view of the chest demonstrates the endotracheal tube is in good position. There is a patchy infiltrate right upper lobe in the left lung base. Heart and mediastinum are unremarkable.. Osseous structures are intact. CONCLUSION: Endotracheal tube in good position. Patchy infiltrate throughout the lungs are unchanged. PICC line i n good position.. Wali Rueda MD on April 18, 2017 at 18:32 Board Certified Radiologist. This report was verified electronically.
[2017-04-18 18:48] LABS: AUTOMATED NEUTROPHIL # 19.1 TH/MM3 (1.8-7.7); BASOPHIL # 0.1 TH/MM3 (0-0.2); BASOPHIL % 0.3 % (0.0-2.0); EOSINOPHIL % 0.1 % (0.0-4.0); HEMATOCRIT 27.6 % (35.0-46.0); HEMOGLOBIN 9.7 GM/DL (11.6-15.3); LYMPH % 5.1 % (9.0-44.0); LYMPHOCYTE # 1.1 TH/MM3 (1.0-4.8); MEAN CELL VOLUME 92.4 FL (80.0-100.0); MEAN CORPUSCULAR HEMOGLOBIN 32.4 PG (27.0-34.0); MEAN PLATELET VOLUME 7.5 FL (7.0-11.0); MONO % 6.7 % (0.0-8.0); MONOCYTE # 1.5 TH/MM3 (0-0.9); NEUT % 87.8 % (16.0-70.0); PLATELET COUNT 635 TH/MM3 (150-450); RED BLOOD COUNT 2.98 MIL/MM3 (4.00-5.30); RED CELL DISTRIBUTION WIDTH 16.6 % (11.6-17.2); WHITE BLOOD COUNT 21.7 TH/MM3 (4.0-11.0)
[2017-04-18 19:16] LABS: CALCIUM 8.5 MG/DL (8.5-10.1)
[2017-04-18 19:20] LABS: BICARBONATE 12.2 MEQ/L (21.0-32.0); CREATININE 1.16 MG/DL (0.50-1.00)
[2017-04-18 19:38] LABS: BANDS 3 % (0-6); BURR CELLS 2+ (NORMAL); LYMPHOCYTES 2 % (9-44); METAMYELOCYTES 3 % (0-1); MONOCYTES 3 % (0-8); NEUTROPHIL # MANUAL DIFF 20.6 TH/MM3 (1.8-7.7); OVALOCYTES 1+ (NORMAL); POLYS (SEG NEUTROPHILS) 89 % (16-70)
[2017-04-18 19:39] LABS: SPHEROCYTES 1+ (NORMAL); TOXIC GRANULATION 1+ (NORMAL)
[2017-04-18] MEDS: PROPOFOL 1000 MG/100 ML IV PRN (20:26)
[2017-04-18] MEDS: VANCOMYCIN 1,000 MG/NS 250 ML IV SCH ×2 (20:28)
[2017-04-18] MEDS ORDERED: PHARMACY ORDERED LAB ONE (20:45)
[2017-04-18] MEDS: PRAVASTATIN SOD 40 MG TAB PO SCH ×2 (21:00→22:40)
--- NOTE | 2017-04-18 22:21 | RADRPT ---
EXAM DATE/TIME: 04/18/2017 21:55 [facility] COMPARISON: CHEST SINGLE AP, April 18, 2017, 18:04. INDICATIONS : OG tube placement. MEDICAL HISTORY : Hypercholesterolemia. Hypertension Diabetes mellitus type II. Siezures. SURGICAL HISTORY : Fusion, cervical. Cholecystectomy. Hysterectomy. Lumbar discectomy. ENCOUNTER: Subsequent ACUITY: 3 days PAIN SCORE: Non-responsive. LOCATION: Bilateral chest FINDINGS: A single view of the chest demonstrates the endotracheal tube, right-sided PICC line and diffuse patc hy infiltrates are unchanged. An orogastric tube is in good position. The cardiomediastinal contours are unremarkable. Osseous structures are intact. There is widening of the left a.c. joint. CONCLUSION: Nasogastric tube is in good position. Patchy infiltrates are unchanged. Wali Rueda MD on April 18, 2017 at 22:17 Board Certified Radiologist. This report was verified electronically.
[2017-04-18] MEDS: fentaNYL 2,500 MCG/NS 250 ML IV PRN (23:48)
[2017-04-19] VITALS (18 sets, daily range): BP systolic 111–126; BP diastolic 54–65; PULSE 69–101; RESP 17–29; TEMP 97.4–99.2; O2SAT 98–100
[2017-04-19] MEDS: PROPRANOLOL HCL 20 MG TAB PO SCH ×4 (02:11→20:46)
[2017-04-19] MEDS: FOSPHENYTOIN INJ 200 MGPE in SODIUM CHLORIDE 0.9% INJ 50 ML IV SCH ×4 (02:11→20:47)
[2017-04-19] MEDS: levETIRAcetam INJ 500 MG in SODIUM CHLORIDE 0.9% INJ 100 ML IV SCH ×4 (02:28→16:37)
[2017-04-19] MEDS: PIPERACIL-TAZO 4.5 GM PREMIX 100 ML IV SCH ×3 (03:50→17:06)
[2017-04-19 04:30] LABS: BASOPHIL # 0.1 TH/MM3 (0-0.2); BASOPHIL % 0.9 % (0.0-2.0); EOSINOPHIL # 0.3 TH/MM3 (0-0.4); EOSINOPHIL % 2.2 % (0.0-4.0); HEMATOCRIT 24.7 % (35.0-46.0); HEMOGLOBIN 8.3 GM/DL (11.6-15.3); LYMPH % 17.3 % (9.0-44.0); LYMPHOCYTE # 2.1 TH/MM3 (1.0-4.8); MEAN CELL VOLUME 91.2 FL (80.0-100.0); MEAN CORPUSCULAR HEMOGLOBIN 30.6 PG (27.0-34.0); MEAN CORPUSCULAR HGB CONC 33.5 % (32.0-36.0); MEAN PLATELET VOLUME 7.1 FL (7.0-11.0); MONO % 6.9 % (0.0-8.0); MONOCYTE # 0.9 TH/MM3 (0-0.9); NEUT % 72.7 % (16.0-70.0); PLATELET COUNT 538 TH/MM3 (150-450); RED BLOOD COUNT 2.71 MIL/MM3 (4.00-5.30); RED CELL DISTRIBUTION WIDTH 16.8 % (11.6-17.2); WHITE BLOOD COUNT 12.4 TH/MM3 (4.0-11.0)
[2017-04-19] MEDS: RESP: ALBUTEROL 2.5 MG/3 ML NEB (PRN) NEB ×4 (04:30→22:12)
[2017-04-19] MEDS: RESP: ACETYLCYSTEINE 10% 30 ML NEB NEB SCH ×4 (04:30→22:12)
[2017-04-19 04:58] LABS: BICARBONATE 18.4 MEQ/L (21.0-32.0); CREATININE 1.05 MG/DL (0.50-1.00); MAGNESIUM 1.9 MG/DL (1.5-2.5)
[2017-04-19] MEDS: INSULIN ASPART SUPPLEMENTAL SCALE SQ SCH ×3 (06:00→16:38)
[2017-04-19] MEDS: LACTULOSE SYRUP 20 GM/30 ML CUP PO SCH ×4 (06:00→17:07)
[2017-04-19] MEDS: cloNIDine HCL 0.2 MG TAB PO SCH ×3 (06:00→20:46)
[2017-04-19] MEDS: LANSOPRAZOLE SOLUTAB 30 MG TAB NG SCH (08:14)
[2017-04-19] MEDS: LACOSAMIDE 100 MG TAB PO SCH ×2 (08:14→20:46)
[2017-04-19] MEDS: LACTOBACILLUS ACIDOPHILUS 1 GM PACKET OG-TUBE SCH ×3 (08:14→17:33)
[2017-04-19] MEDS: CLOPIDOGREL 75 MG TAB PO SCH (08:14)
[2017-04-19] MEDS: CHLORHEXIDINE 0.12% (ORAL KIT) 15 ML CUP MT SCH ×2 (08:15→20:45)
[2017-04-19] MEDS: SODIUM CHLORIDE 0.9% FLUSH 10 ML FLUSH IV FLUSH SCH ×3 (08:15→20:46)
[2017-04-19] MEDS: ARTIFICIAL TEARS OPTH SOLN 15 ML BTL EACH EYE SCH ×3 (08:15→17:07)
[2017-04-19] MEDS: DOCUSATE SODIUM 50 MG/SENNA 8.6 MG TAB PO SCH ×2 (09:00→20:46)
[2017-04-19] MEDS: POLYETHYLENE GLYCOL 17 GM PKG PO SCH ×2 (09:00→20:46)
[2017-04-19] MEDS: HEPARIN SODIUM - SQ 10,000 UNITS/ML VIAL SQ SCH ×2 (09:55→20:46)
[2017-04-19] MEDS: PROPOFOL 1000 MG/100 ML IV PRN ×3 (09:55→22:05)
--- NOTE | 2017-04-19 10:29 | HHI.CCPN ---
Subjective Remarks/Hospital Course This is a 76-year-old female that presented to the ED for evaluation of altered mental status. Per report, according to EMS the patient normally is more alert and has a history of stroke, he was able to speak with the patient's sister who states that she is also power of claims attorney, the patient apparently normally is ambulatory and can carry on a conversation without any difficulty. Per records reviewed, the patient was last seen normal and at her baseline at 1 am. The patient then sat down in her lazy chair, her sister also noted that she started beating her head against a piece of furniture. The patient was noted to have a right frontal contusion upon presentation to the ED .She had a GCS of 7-8 on arrival. The patient's medical history is significant for a recent admission 12/2016 for altered mental status, medication induced. Her past medical history is also significant for a recent history of UTI and C. difficile in addition to her history of having a CVA and reportedly residual effects in the right upper and lower extremity. Laboratory and imaging studies revealed that most likely the patient has a UTI, CT of the brain revealed no abnormality and the patient was noted to have an elevated lactate level. The patient was emergently intubated in the ED, and the patient was noted to be significantly hypertensive and a nicardipine infusion was instituted. Upon entering the ED the patient's blood pressure was noted to be 219/92, Cardizem infusion had been ordered. The patient was noted to have spontaneous movement of the right upper and lower extremity with a gag reflex. Critical care medicine was consulted. 04/04: The patient was weaned off of nicardipine infusion. Normotensive the patient continues on labetalol twice a day scheduled home dosing. EEG attempted last evening however due to patient's movement bilaterally to complete artifact EEG reordered. Fentanyl infusion discontinued for daily sedation vacation approximately 7 hours ago the patient remains nonresponsive. Opens eyes spontaneously, moves limbs spontaneously but does not follow any commands. Brain MRI/MRA, and CT all negative findings. EEG scheduled for a.m.. The patient continues in severe metabolic acidosis, 2 Amps of sodium bicarbonate IV push given this a.m., sodium bicarbonate infusion increased. Lactate is cleared, creatinine is improving, CT of the abdomen and pelvis is pending this afternoon. 04/05 CT report from yesterday shows bladder edema consistent with cystitis. URine culture with GNR Blood cultures NGTD. . Getting EEG now. 04/06: Resting comfortable in bed in no acute distress. No obvious seizure activity. Plan for lumbar puncture in AM. Low-grade temperatures overnight. Tolerating tube feeding at goal. No bowel movement 04/07: Continues EEG has been discontinued. Tmax 100. Currently 99.8. No bowel movement since admission. Tolerating tube feeds at goal. No active seizure activity overnight. 04/08: Tmax 100. Currently 99.9. Became tachycardic with sedation lowered so RN increased midazolam to 9 milligrams an hour. Also fentanyl drip at 250 mcg per hour. No bowel movement since admission. Tolerating tube feedings with only 40 cc residuals. Receiving methylnaltrexone milligrams subcutaneous 1 along with mineral oil and suppository. KUB pending. Patient improved neurological exam. Blinks with my suddenhand movements towards face. Positive gag. Withdraws to pain in all 4 extremities. 04/09 LP results not yet finalized. On versed 7 mg/hr and fentanyl 250 mcg/hr. EEG from 04/08 - no epileptiform features. 04/10 Weaning fentanyl down but remains on versed for seizure suppression. Because she had difficult to control subclinical seizures, will need close EEG monitoring for benzo weaning. Was breathing on PSV for couple of hours day, even on sedation. CSF negative final culture. No Leukocytosis or fever. Will stop antibiotic. Updated sister. 04/11: no seizures evident on EEG. slightly more awake today, but not following commands. had discussion with Dr. Martinez, will wean versed to 4mg/hr and re- evaluate on EEG tomorrow. 04/12: no seizures on EEG. ok to wean versed to off per Dr. Martinez. will work on waking and weaning mechanical ventilation. 04/13: acute drop in hgb. ordered 1 unit prbc. sent haptoglobin and LDH. pt awake following commands. fails SBT for RSBI > 110. 04/14: hgb improved. still awake, alert, following commands. extubated successfully. 04/15: Reintubated last night for worsening respiratory status. Currently orally intubated on mechanical ventilation, arousable easily follows commands. On Versed gtt. 04/16: Remains orally intubated on mechanical ventilation. Pancultured and started on antibiotics on 04/15. Sputum growing Burkholderia Subjective 04/17: awake, sitting up, asking to be extubated. also asks to watch the football game today. tolerated 3 hours of t-piece trial. successfully extubated. after extubation, slightly tachypneic requiring NT suctioning, mucomyst nebs, and iv lasix. tachypneic in distress, but insists on non-invasive techniques for pulmonary toilet. patient does not want to be "DNR" but refuses any talks about reintubation right now. 04/18 Patient was extubated yesterday. Hypertensive, on partial rebreather. 04/19 Patient was intubated yesterday for resp failure sedated with Diprivan and Fentanyl drips. Objective Vital Signs Date Time Temp Pulse Resp B/P (MAP) Pulse Ox O2 Delivery O2 Flow Rate FiO2 04/19/17 08:28 99 40 04/19/17 08:00 98.6 76 20 113/58 (76) 04/18/17 09:09 Partial Rebreather 12.00 Intake and Output 04/19/17 04/19/17 04/19/17 07:59 15:59 23:59 Intake Total 500 ml Output Total 275 ml Balance 225 ml Result Diagram: 04/19/17 0415 04/19/17 0415 Other Results Laboratory Tests Test 04/18/17 13:30 04/18/17 16:52 04/18/17 18:15 04/18/17 18:32 Phosphorus Level 3.4 MG/DL Magnesium Level 1.6 MG/DL Blood Gas Puncture Site LT RADIAL LT RADIAL Blood Gas Patient Temperature 98.6 98.6 Blood Gas HCO3 8 mmol/L 9 mmol/L Blood Gas Base Excess -17.6 mmol/L -16.2 mmol/L Blood Gas Oxygen Saturation 91 % 94 % Arterial Blood pH 7.25 7.33 Arterial Blood Partial Pressure CO2 20 mmHg 17 mmHg Arterial Blood Partial Pressure O2 82 mmHg 89 mmHg Arterial Blood Oxygen Content 12.9 Vol % 13.4 Vol % Arterial Blood Carboxyhemoglobin 0.8 % 0.7 % Arterial Blood Methemoglobin 1.3 % 1.2 % Blood Gas Hemoglobin 10.0 G/DL 10.0 G/DL Oxygen Delivery Device BiPAP VENTILATOR Blood Gas Ventilator Setting IPAP10/EPAP5 A/C 12/500/PEEP5 Blood Gas Inspired Oxygen 30 % 40 % White Blood Count 21.7 TH/MM3 Red Blood Count 2.98 MIL/MM3 Hemoglobin 9.7 GM/DL Hematocrit 27.6 % Mean Corpuscular Volume 92.4 FL Mean Corpuscular Hemoglobin 32.4 PG Mean Corpuscular Hemoglobin Concent 35.0 % Red Cell Distribution Width 16.6 % Platelet Count 635 TH/MM3 Mean Platelet Volume 7.5 FL Neutrophils (%) (Auto) 87.8 % Lymphocytes (%) (Auto) 5.1 % Monocytes (%) (Auto) 6.7 % Eosinophils (%) (Auto) 0.1 % Basophils (%) (Auto) 0.3 % Neutrophils # (Auto) 19.1 TH/MM3 Lymphocytes # (Auto) 1.1 TH/MM3 Monocytes # (Auto) 1.5 TH/MM3 Eosinophils # (Auto) 0.0 TH/MM3 Basophils # (Auto) 0.1 TH/MM3 CBC Comment AUTO DIFF Differential Total Cells Counted 100 Neutrophils % (Manual) 89 % Band Neutrophils % 3 % Lymphocytes % 2 % Monocytes % 3 % Neutrophils # (Manual) 20.6 TH/MM3 Metamyelocytes 3 % Differential Comment FINAL DIFF MANUAL Toxic Granulation 1+ Platelet Estimate HIGH Platelet Morphology Comment NORMAL Spherocytes 1+ Ovalocytes 1+ Cynthia Cells 2+ Blood Urea Nitrogen 21 MG/DL Creatinine 1.16 MG/DL Random Glucose 159 MG/DL Calcium Level 8.5 MG/DL Sodium Level 147 MEQ/L Potassium Level 3.3 MEQ/L Chloride Level 113 MEQ/L Carbon Dioxide Level 12.2 MEQ/L Anion Gap 22 MEQ/L Estimat Glomerular Filtration Rate 46 ML/MIN Lactic Acid Level 1.3 mmol/L Test 04/19/17 04:15 White Blood Count 12.4 TH/MM3 Red Blood Count 2.71 MIL/MM3 Hemoglobin 8.3 GM/DL Hematocrit 24.7 % Mean Corpuscular Volume 91.2 FL Mean Corpuscular Hemoglobin 30.6 PG Mean Corpuscular Hemoglobin Concent 33.5 % Red Cell Distribution Width 16.8 % Platelet Count 538 TH/MM3 Mean Platelet Volume 7.1 FL Neutrophils (%) (Auto) 72.7 % Lymphocytes (%) (Auto) 17.3 % Monocytes (%) (Auto) 6.9 % Eosinophils (%) (Auto) 2.2 % Basophils (%) (Auto) 0.9 % Neutrophils # (Auto) 9.0 TH/MM3 Lymphocytes # (Auto) 2.1 TH/MM3 Monocytes # (Auto) 0.9 TH/MM3 Eosinophils # (Auto) 0.3 TH/MM3 Basophils # (Auto) 0.1 TH/MM3 CBC Comment AUTO DIFF Differential Comment AUTO DIFF CONFIRMED Blood Urea Nitrogen 22 MG/DL Creatinine 1.05 MG/DL Random Glucose 114 MG/DL Calcium Level 8.0 MG/DL Phosphorus Level 3.0 MG/DL Magnesium Level 1.9 MG/DL Sodium Level 151 MEQ/L Potassium Level 3.4 MEQ/L Chloride Level 119 MEQ/L Carbon Dioxide Level 18.4 MEQ/L Anion Gap 14 MEQ/L Estimat Glomerular Filtration Rate 51 ML/MIN Imaging Last Impressions Chest X-Ray 04/18/17 0000 Signed Impressions: Service Date/Time: Tuesday, April 18, 2017 21:55 - CONCLUSION: Nasogastric tube is in good position. Patchy infiltrates are unchanged. Wali Rueda MD Abdomen X-Ray 04/08/17 0000 Signed Impressions: Service Date/Time: Saturday, April 08, 2017 20:00 - CONCLUSION: Nonspecific , nonobstructive bowel gas pattern which to represent a mild ileus. Nasogastric tube is in place. Alvaro Best MD Lumbar Puncture Fluoroscopy 04/07/17 0000 Signed Impressions: Service Date/Time: March 09:39 - CONCLUSION: Uncomplicated fluoroscopically guided lumbar puncture. Harris Gamboa MD Brain MRI 04/07/17 0000 Signed Impressions: Service Date/Time: March 10:24 - CONCLUSION: No acute intracranial findings Kali Jerry MD Upper Extremity Ultrasound 04/06/17 0000 Signed Impressions: Service Date/Time: Thursday, April 06, 2017 21:32 - CONCLUSION: 1. No sonographic evidence for right upper extremity DVT. Harris Gamboa MD Lower Extremity Ultrasound 04/06/17 0000 Signed Impressions: Service Date/Time: Thursday, April 06, 2017 21:12 - CONCLUSION: 1. No sonographic evidence for lower extremity DVT. Harris Gamboa MD Abdomen/Pelvis CT 04/04/17 0000 Signed Impressions: Service Date/Time: Tuesday, April 04, 2017 16:05 - CONCLUSION: 1. Mild edema surrounding the urinary bladder, question cystitis. Moore catheter in place. 2. Status post cholecystectomy. 3. Left lower lobe atelectasis. 4. Nasogastric tube tip at the gastroesophageal junction. Kd Doty MD Neck Magnetic Resonance Angiography 04/03/17 1119 Signed Impressions: Service Date/Time: Monday, April 03, 2017 13:11 - CONCLUSION: Negative for hemodynamically significant carotid stenosis Roque Tripathi MD FACR Head Magnetic Resonance Angiography 04/03/17 1119 Signed Impressions: Service Date/Time: Monday, April 03, 2017 13:11 - CONCLUSION: Negative for major branch vessel occlusion. Roque Triapthi MD FACR Head CT 04/03/17 0851 Signed Impressions: Service Date/Time: Monday, April 03, 2017 09:02 - CONCLUSION: Negative for acute process.. Roque Tripathi MD FACR Cervical Spine CT 04/03/17 0000 Signed Impressions: Service Date/Time: Monday, April 03, 2017 09:07 - CONCLUSION: Fusion as above, negative for fracture. Roque Tripathi MD FACR Objective Remarks GENERAL: 76-year-old female sitting in bed on partial rebreather SKIN: Warm and dry. HEAD: Atraumatic. Normocephalic. EYES: Pupils equal and round 1-2 mm bilaterally. No scleral icterus. No injection or drainage. ENT: No nasal bleeding or discharge. Mucous membranes pink and moist. NECK: Trachea midline. No JVD. CARDIOVASCULAR: RRR. RESPIRATORY: Diffuse coarse BS/crackles. GASTROINTESTINAL: Abdomen soft, non-tender, nondistended. No guarding. MUSCULOSKELETAL: Right upper extremity with 2+ edema and erythema. Negative Doppler ultrasound 04/06 for DVT NEUROLOGICAL: follows commands. RASS 0, A/P Assessment and Plan Assessment: 76yF admitted with subclinical status, now controlled. Now with persistent hypoxic respiratory failure. Phos levels normal. 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 Remains extubated, but very tenuous respiratory status. LTAC would be a good option for ongoing pulmonary rehab. Neuro/Psych Post polio syndrome bilateral lower extremity weakness Status epilepticus History of CVATIA with R sided deficits - right lentiform nucleus H/O seizures Anxiety/depression Left maxillary/ethmoid fluid levels question sinusitis On Diprivan and Fentanyl drips for sedation and vent synchrony. Daily sedation vacation. 04/07 interpretation EEG - Abnormal EEG due to some mild to moderate slowing, but also some occasional sharps and spike and slow waves seen, but improved from prior EEG's. Clinical correlation. [id number] milligrams twice a day will be continued. Loaded with fosphenytoin - currently fosphenytoin 200 mg IV every 8 hours. Level 8.2 on 04/15 Levetiracetam 500 mg IV every 6 hours Lorazepam 2 mg IV every 5 minutes as needed. Seizures TSH normal-3.0 Random cortisol level only 3.5. Unclear significance as patient had lactic acidemia but also hypertensive at the time. Recheck 04/07 12.3. Cosyntropin test ordered 04/08, had adequate response 04/03 MRI brain-Moderate periventricular white matter changes are evident. There is no restricted diffusion. There is moderate atrophy with dilatation of ventricular sulcal spaces. There are no extra-axial fluid collections appreciated. Posterior fossa is unremarkable. 04/03 MRA brain-negative for major branch occlusion 04/03 CT brain-no acute intracranial process MRI brain 04/07 - There is mild periventricular white matter T2 prolongation. A tiny lacunar infarct in the right lentiform nucleus appears old. There is no evidence of intracranial mass or hemorrhage. The brainstem and posterior fossa structures are unremarkable. There is nothing to suggest acute infarction. There is fluid in the left maxillary sinus and occasional ethmoid sinuses. Patient's home meds baclofen 10 mg 3 times a day, tramadol 50 mg every 4 hours as needed and sertraline 50 mg twice a day have been on hold due to concern for serotonin syndrome, seizure activity and rhabdomyolysis. Patient has history of altered mental status secondary to being medication induced. Reported by family member -the patient had discontinued baclofen for approximately 3 months and took her initial dose of baclofen on 04/02 with a TID schedule dosing. LP - HSV negative, final cx neg. Dr. Martinez actively following. Respiratory: Acute hypoxemic respiratory failure- improving. Extubated 04/14, reintubated 04/14, extubated 04/17 reintubated 04/18 Continue with vent support keep sat >92% Albuterol/ipratropium aerosols nebs every 6 hours scheduled, albuterol aerosols every 2 hours when necessary SBT daily as hu. Cardiovascular: Hypertensive emergency-resolved History of hypertension Hyperlipidemia Congestive heart failure - ejection fraction 55-60% 2009 Labetalol, hydralazine IV , PRN to maintain SBP <160 Serial troponin were negative. propranolol 40mg po q6h On metoprolol 50 mg sustained release daily at home continue clopidogrel 75 mg by mouth daily/home medication Resumed 04/09 Continue pravastatin 40 mg by mouth daily/home medication for dyslipidemia clonidine 0.2mg po q8hr. Renal//FEN: Chronic kidney disease stage IIIB Monitor renal function, electrolytes replacement per protocol. For K replacement today Add Free water 250ml Q8, monitor sodium level. GI: Esophageal stricture -history of esophageal dilatation GERD Elevated ammonia Constipation- resolved. Start tube feeds- Glucerna 1.5 with goal rate 50ml/hr Lansoprazole 30 mg daily GI prophylaxis. On Dexlansoprazole 60 mg times daily at home Docusate sodium/senna 1 tablet twice a day for bowel regimen. polyethylene glycol 17 g twice a day and lactulose 30 cc 4x a day KUB 04/08 - mild ileus ID: Sepsis Escherichia coli UTI Pneumonia Monitor CBC Blood cultures 04/03 - negative Urine culture 04/03 - Escherichia coli, pansensitive sputum 04/13: Burkholderia Strep pneumococcal antigen 04/03 - negative CSF 04/07 Gram stain, fungal and AFB negative as of 04/08 urine culture 04/15: Group D enterococcus, Burkholderia Recent history of C. difficile colitis. Lactinex tid. Continue vancomycin/Zosyn started on 04/15 HEME/ONC: History of cervical cancer Normocytic anemia History of right lower extremity DVT - posterior tibial and femoral vein previously on Apixaban Clopidogrel 75 mg daily initially held for LP. Restarted 04/09 Lactate level 1.8 Recheck Doppler bilateral and right upper lower extremities 04/07 negative for DVT guaiac negative. Monitor CBC Endocrine: Diabetes mellitus Low cortisol Glucose monitoring per ICU protocol, low dose regimen Novulog every 6 hours Hold metformin thousand milligrams twice a day Prophylaxis: GI Prophylaxis Lansoprazole 30 mg daily DVT Prophylaxis -- SCDs SQH. Lines: right sided PICC Level 3 Lian Cuellar MD Apr 19, 2017 10:29
[2017-04-19] MEDS: FREE WATER G-TUBE SCH ×3 (11:26→20:46)
[2017-04-19] MEDS: VANCOMYCIN 1,000 MG/NS 250 ML IV SCH ×2 (14:19)
[2017-04-19] MEDS ORDERED: PHARMACY ORDERED LAB ONE (14:45)
[2017-04-19] MEDS: fentaNYL 2,500 MCG/NS 250 ML IV PRN (18:09)
[2017-04-19] MEDS: PRAVASTATIN SOD 40 MG TAB PO SCH (20:46)
[2017-04-20] VITALS (15 sets, daily range): BP systolic 99–113; BP diastolic 51–59; PULSE 71–85; RESP 12–17; TEMP 97.8–99.5; O2SAT 100
[2017-04-20] MEDS: PROPRANOLOL HCL 20 MG TAB PO SCH ×3 (00:53→15:10)
[2017-04-20] MEDS: PIPERACIL-TAZO 4.5 GM PREMIX 100 ML IV SCH ×4 (00:53→17:11)
[2017-04-20] MEDS: PROPOFOL 1000 MG/100 ML IV PRN ×2 (03:13→09:43)
[2017-04-20] MEDS: CHLORHEXIDINE GLUCONATE 2 % 1 PACK (2 CLOTHS) TOP SCH (03:14)
[2017-04-20] MEDS: RESP: ALBUTEROL 2.5 MG/3 ML NEB (PRN) NEB ×3 (04:15→15:50)
[2017-04-20] MEDS: RESP: ACETYLCYSTEINE 10% 30 ML NEB NEB SCH ×3 (04:15→15:50)
[2017-04-20] MEDS: cloNIDine HCL 0.2 MG TAB PO SCH ×2 (05:43→15:09)
[2017-04-20] MEDS: FOSPHENYTOIN INJ 200 MGPE in SODIUM CHLORIDE 0.9% INJ 50 ML IV SCH ×2 (05:43→15:03)
[2017-04-20] MEDS: LACTULOSE SYRUP 20 GM/30 ML CUP PO SCH ×4 (05:44→16:58)
[2017-04-20] MEDS: FREE WATER G-TUBE SCH ×2 (05:44→13:50)
[2017-04-20 05:48] LABS: AUTOMATED NEUTROPHIL # 6.4 TH/MM3 (1.8-7.7); BASOPHIL # 0.1 TH/MM3 (0-0.2); BASOPHIL % 1.3 % (0.0-2.0); EOSINOPHIL # 0.7 TH/MM3 (0-0.4); EOSINOPHIL % 6.6 % (0.0-4.0); HEMATOCRIT 24.1 % (35.0-46.0); HEMOGLOBIN 7.9 GM/DL (11.6-15.3); LYMPH % 21.2 % (9.0-44.0); LYMPHOCYTE # 2.2 TH/MM3 (1.0-4.8); MEAN CELL VOLUME 93.2 FL (80.0-100.0); MEAN CORPUSCULAR HEMOGLOBIN 30.6 PG (27.0-34.0); MEAN CORPUSCULAR HGB CONC 32.8 % (32.0-36.0); MEAN PLATELET VOLUME 7.7 FL (7.0-11.0); MONO % 8.1 % (0.0-8.0); MONOCYTE # 0.8 TH/MM3 (0-0.9); NEUT % 62.8 % (16.0-70.0); PLATELET COUNT 504 TH/MM3 (150-450); RED BLOOD COUNT 2.59 MIL/MM3 (4.00-5.30); RED CELL DISTRIBUTION WIDTH 16.5 % (11.6-17.2); WHITE BLOOD COUNT 10.2 TH/MM3 (4.0-11.0)
[2017-04-20] MEDS: INSULIN ASPART SUPPLEMENTAL SCALE SQ SCH ×4 (06:00→16:58)
[2017-04-20 06:04] LABS: BICARBONATE 22.6 MEQ/L (21.0-32.0); CALCIUM 7.8 MG/DL (8.5-10.1); CREATININE 1.13 MG/DL (0.50-1.00)
[2017-04-20] MEDS: fentaNYL 2,500 MCG/NS 250 ML IV PRN (06:38)
[2017-04-20] MEDS: levETIRAcetam INJ 500 MG in SODIUM CHLORIDE 0.9% INJ 100 ML IV SCH ×5 (06:38→16:58)
[2017-04-20 07:43] LABS: BANDS 12 % (0-6); LYMPHOCYTES 14 % (9-44); METAMYELOCYTES 5 % (0-1); MONOCYTES 11 % (0-8); NEUTROPHIL # MANUAL DIFF 6.7 TH/MM3 (1.8-7.7); POLYS (SEG NEUTROPHILS) 49 % (16-70)
[2017-04-20 07:44] LABS: OVALOCYTES 1+ (NORMAL)
[2017-04-20] MEDS: CHLORHEXIDINE 0.12% (ORAL KIT) 15 ML CUP MT SCH (08:21)
[2017-04-20] MEDS: LACOSAMIDE 100 MG TAB PO SCH (08:22)
[2017-04-20] MEDS: HEPARIN SODIUM - SQ 10,000 UNITS/ML VIAL SQ SCH (08:22)
[2017-04-20] MEDS: SODIUM CHLORIDE 0.9% FLUSH 10 ML FLUSH IV FLUSH SCH ×2 (08:22)
[2017-04-20] MEDS: ARTIFICIAL TEARS OPTH SOLN 15 ML BTL EACH EYE SCH ×3 (08:22→16:58)
[2017-04-20] MEDS: LANSOPRAZOLE SOLUTAB 30 MG TAB NG SCH (08:22)
[2017-04-20] MEDS: LACTOBACILLUS ACIDOPHILUS 1 GM PACKET OG-TUBE SCH ×3 (08:23→16:57)
[2017-04-20] MEDS: POLYETHYLENE GLYCOL 17 GM PKG PO SCH (08:23)
[2017-04-20] MEDS: CLOPIDOGREL 75 MG TAB PO SCH (08:23)
[2017-04-20] MEDS: DOCUSATE SODIUM 50 MG/SENNA 8.6 MG TAB PO SCH (08:23)
--- NOTE | 2017-04-20 11:10 | HHI.CCPN ---
Subjective Remarks/Hospital Course This is a 76-year-old female that presented to the ED for evaluation of altered mental status. Per report, according to EMS the patient normally is more alert and has a history of stroke, he was able to speak with the patient's sister who states that she is also power of corporate attorney, the patient apparently normally is ambulatory and can carry on a conversation without any difficulty. Per records reviewed, the patient was last seen normal and at her baseline at 1 am. The patient then sat down in her lazy chair, her sister also noted that she started beating her head against a piece of furniture. The patient was noted to have a right frontal contusion upon presentation to the ED .She had a GCS of 7-8 on arrival. The patient's medical history is significant for a recent admission 12/2016 for altered mental status, medication induced. Her past medical history is also significant for a recent history of UTI and C. difficile in addition to her history of having a CVA and reportedly residual effects in the right upper and lower extremity. Laboratory and imaging studies revealed that most likely the patient has a UTI, CT of the brain revealed no abnormality and the patient was noted to have an elevated lactate level. The patient was emergently intubated in the ED, and the patient was noted to be significantly hypertensive and a nicardipine infusion was instituted. Upon entering the ED the patient's blood pressure was noted to be 219/92, Cardizem infusion had been ordered. The patient was noted to have spontaneous movement of the right upper and lower extremity with a gag reflex. Critical care medicine was consulted. 04/04: The patient was weaned off of nicardipine infusion. Normotensive the patient continues on labetalol twice a day scheduled home dosing. EEG attempted last evening however due to patient's movement bilaterally to complete artifact EEG reordered. Fentanyl infusion discontinued for daily sedation vacation approximately 7 hours ago the patient remains nonresponsive. Opens eyes spontaneously, moves limbs spontaneously but does not follow any commands. Brain MRI/MRA, and CT all negative findings. EEG scheduled for a.m.. The patient continues in severe metabolic acidosis, 2 Amps of sodium bicarbonate IV push given this a.m., sodium bicarbonate infusion increased. Lactate is cleared, creatinine is improving, CT of the abdomen and pelvis is pending this afternoon. 04/05 CT report from yesterday shows bladder edema consistent with cystitis. URine culture with GNR Blood cultures NGTD. . Getting EEG now. 04/06: Resting comfortable in bed in no acute distress. No obvious seizure activity. Plan for lumbar puncture in AM. Low-grade temperatures overnight. Tolerating tube feeding at goal. No bowel movement 04/07: Continues EEG has been discontinued. Tmax 100. Currently 99.8. No bowel movement since admission. Tolerating tube feeds at goal. No active seizure activity overnight. 04/08: Tmax 100. Currently 99.9. Became tachycardic with sedation lowered so RN increased midazolam to 9 milligrams an hour. Also fentanyl drip at 250 mcg per hour. No bowel movement since admission. Tolerating tube feedings with only 40 cc residuals. Receiving methylnaltrexone milligrams subcutaneous 1 along with mineral oil and suppository. KUB pending. Patient improved neurological exam. Blinks with my suddenhand movements towards face. Positive gag. Withdraws to pain in all 4 extremities. 04/09 LP results not yet finalized. On versed 7 mg/hr and fentanyl 250 mcg/hr. EEG from 04/08 - no epileptiform features. 04/10 Weaning fentanyl down but remains on versed for seizure suppression. Because she had difficult to control subclinical seizures, will need close EEG monitoring for benzo weaning. Was breathing on PSV for couple of hours day, even on sedation. CSF negative final culture. No Leukocytosis or fever. Will stop antibiotic. Updated sister. 04/11: no seizures evident on EEG. slightly more awake today, but not following commands. had discussion with Dr. Martinez, will wean versed to 4mg/hr and re- evaluate on EEG tomorrow. 04/12: no seizures on EEG. ok to wean versed to off per Dr. Martinez. will work on waking and weaning mechanical ventilation. 04/13: acute drop in hgb. ordered 1 unit prbc. sent haptoglobin and LDH. pt awake following commands. fails SBT for RSBI > 110. 04/14: hgb improved. still awake, alert, following commands. extubated successfully. 04/15: Reintubated last night for worsening respiratory status. Currently orally intubated on mechanical ventilation, arousable easily follows commands. On Versed gtt. 04/16: Remains orally intubated on mechanical ventilation. Pancultured and started on antibiotics on 04/15. Sputum growing Burkholderia Subjective 04/17: awake, sitting up, asking to be extubated. also asks to watch the football game today. tolerated 3 hours of t-piece trial. successfully extubated. after extubation, slightly tachypneic requiring NT suctioning, mucomyst nebs, and iv lasix. tachypneic in distress, but insists on non-invasive techniques for pulmonary toilet. patient does not want to be "DNR" but refuses any talks about reintubation right now. 04/18 Patient was extubated yesterday. Hypertensive, on partial rebreather. 04/19 Patient was intubated yesterday for resp failure sedated with Diprivan and Fentanyl drips. 04/20 No events overnight. Sedated and intubated. Afebrile Objective Vital Signs Date Time Temp Pulse Resp B/P (MAP) Pulse Ox O2 Delivery O2 Flow Rate FiO2 04/20/17 10:00 72 04/20/17 08:43 100 40 04/20/17 08:00 98.7 12 109/54 (72) 04/18/17 09:09 Partial Rebreather 12.00 Intake and Output 04/20/17 04/20/17 04/21/17 08:00 16:00 00:00 Intake Total 1829 ml Output Total 300 ml Balance 1529 ml Result Diagram: 04/20/17 0410 04/20/17 0410 Other Results Laboratory Tests Test 04/19/17 14:15 04/20/17 04:10 Vancomycin Level Trough 21.2 MCG/ML White Blood Count 10.2 TH/MM3 Red Blood Count 2.59 MIL/MM3 Hemoglobin 7.9 GM/DL Hematocrit 24.1 % Mean Corpuscular Volume 93.2 FL Mean Corpuscular Hemoglobin 30.6 PG Mean Corpuscular Hemoglobin Concent 32.8 % Red Cell Distribution Width 16.5 % Platelet Count 504 TH/MM3 Mean Platelet Volume 7.7 FL Neutrophils (%) (Auto) 62.8 % Lymphocytes (%) (Auto) 21.2 % Monocytes (%) (Auto) 8.1 % Eosinophils (%) (Auto) 6.6 % Basophils (%) (Auto) 1.3 % Neutrophils # (Auto) 6.4 TH/MM3 Lymphocytes # (Auto) 2.2 TH/MM3 Monocytes # (Auto) 0.8 TH/MM3 Eosinophils # (Auto) 0.7 TH/MM3 Basophils # (Auto) 0.1 TH/MM3 CBC Comment AUTO DIFF Differential Total Cells Counted 100 Neutrophils % (Manual) 49 % Band Neutrophils % 12 % Lymphocytes % 14 % Monocytes % 11 % Eosinophils % 9 % Neutrophils # (Manual) 6.7 TH/MM3 Metamyelocytes 5 % Differential Comment FINAL DIFF MANUAL Platelet Estimate HIGH Platelet Morphology Comment NORMAL Ovalocytes 1+ Blood Urea Nitrogen 27 MG/DL Creatinine 1.13 MG/DL Random Glucose 123 MG/DL Calcium Level 7.8 MG/DL Sodium Level 148 MEQ/L Potassium Level 4.1 MEQ/L Chloride Level 117 MEQ/L Carbon Dioxide Level 22.6 MEQ/L Anion Gap 8 MEQ/L Estimat Glomerular Filtration Rate 47 ML/MIN Imaging Last Impressions Chest X-Ray 04/18/17 0000 Signed Impressions: Service Date/Time: Tuesday, April 18, 2017 21:55 - CONCLUSION: Nasogastric tube is in good position. Patchy infiltrates are unchanged. Wali Rueda MD Abdomen X-Ray 04/08/17 0000 Signed Impressions: Service Date/Time: Saturday, April 08, 2017 20:00 - CONCLUSION: Nonspecific , nonobstructive bowel gas pattern which to represent a mild ileus. Nasogastric tube is in place. Alvaro Best MD Lumbar Puncture Fluoroscopy 04/07/17 0000 Signed Impressions: Service Date/Time: March 09:39 - CONCLUSION: Uncomplicated fluoroscopically guided lumbar puncture. Harris Gamboa MD Brain MRI 04/07/17 0000 Signed Impressions: Service Date/Time: March 10:24 - CONCLUSION: No acute intracranial findings Kali Jerry MD Upper Extremity Ultrasound 04/06/17 0000 Signed Impressions: Service Date/Time: Thursday, April 06, 2017 21:32 - CONCLUSION: 1. No sonographic evidence for right upper extremity DVT. Harris Gamboa MD Lower Extremity Ultrasound 04/06/17 0000 Signed Impressions: Service Date/Time: Thursday, April 06, 2017 21:12 - CONCLUSION: 1. No sonographic evidence for lower extremity DVT. Harris Gamboa MD Abdomen/Pelvis CT 04/04/17 0000 Signed Impressions: Service Date/Time: Tuesday, April 04, 2017 16:05 - CONCLUSION: 1. Mild edema surrounding the urinary bladder, question cystitis. Moore catheter in place. 2. Status post cholecystectomy. 3. Left lower lobe atelectasis. 4. Nasogastric tube tip at the gastroesophageal junction. Kd Doty MD Neck Magnetic Resonance Angiography 04/03/17 1119 Signed Impressions: Service Date/Time: Monday, April 03, 2017 13:11 - CONCLUSION: Negative for hemodynamically significant carotid stenosis Roque Tripathi MD FACR Head Magnetic Resonance Angiography 04/03/17 1119 Signed Impressions: Service Date/Time: Monday, April 03, 2017 13:11 - CONCLUSION: Negative for major branch vessel occlusion. Roque Tripathi MD FACR Head CT 04/03/17 0851 Signed Impressions: Service Date/Time: Monday, April 03, 2017 09:02 - CONCLUSION: Negative for acute process.. Roque Tripathi MD FACR Cervical Spine CT 04/03/17 0000 Signed Impressions: Service Date/Time: Monday, April 03, 2017 09:07 - CONCLUSION: Fusion as above, negative for fracture. Roque Tripathi MD FACR Objective Remarks GENERAL: 76-year-old female sedated and intubated SKIN: Warm and dry. HEAD: Atraumatic. Normocephalic. EYES: Pupils equal and round 1-2 mm bilaterally. No scleral icterus. No injection or drainage. ENT: No nasal bleeding or discharge. Mucous membranes pink and moist. NECK: Trachea midline. No JVD. CARDIOVASCULAR: RRR. RESPIRATORY: B/l equal air entry, few coarse BS GASTROINTESTINAL: Abdomen soft, non-tender, nondistended. No guarding. MUSCULOSKELETAL: Right upper extremity with 2+ edema and erythema. NEUROLOGICAL:Sedated, intubated A/P Assessment and Plan Neuro/Psych Post polio syndrome bilateral lower extremity weakness Status epilepticus History of CVATIA with R sided deficits - right lentiform nucleus H/O seizures Anxiety/depression Left maxillary/ethmoid fluid levels question sinusitis On Diprivan and Fentanyl drips for sedation and vent synchrony. Daily sedation vacation. 04/07 interpretation EEG - Abnormal EEG due to some mild to moderate slowing, but also some occasional sharps and spike and slow waves seen, but improved from prior EEG's. Clinical correlation. [id number] milligrams twice a day will be continued. Loaded with fosphenytoin - currently fosphenytoin 200 mg IV every 8 hours. Level 8.2 on 04/15 Levetiracetam 500 mg IV every 6 hours Lorazepam 2 mg IV every 5 minutes as needed. Seizures TSH normal-3.0 Random cortisol level only 3.5. Unclear significance as patient had lactic acidemia but also hypertensive at the time. Recheck 04/07 12.3. Cosyntropin test ordered 04/08, had adequate response 04/03 MRI brain-Moderate periventricular white matter changes are evident. There is no restricted diffusion. There is moderate atrophy with dilatation of ventricular sulcal spaces. There are no extra-axial fluid collections appreciated. Posterior fossa is unremarkable. 04/03 MRA brain-negative for major branch occlusion 04/03 CT brain-no acute intracranial process MRI brain 04/07 - There is mild periventricular white matter T2 prolongation. A tiny lacunar infarct in the right lentiform nucleus appears old. There is no evidence of intracranial mass or hemorrhage. The brainstem and posterior fossa structures are unremarkable. There is nothing to suggest acute infarction. There is fluid in the left maxillary sinus and occasional ethmoid sinuses. Patient's home meds baclofen 10 mg 3 times a day, tramadol 50 mg every 4 hours as needed and sertraline 50 mg twice a day have been on hold due to concern for serotonin syndrome, seizure activity and rhabdomyolysis. Patient has history of altered mental status secondary to being medication induced. Reported by family member -the patient had discontinued baclofen for approximately 3 months and took her initial dose of baclofen on 04/02 with a TID schedule dosing. LP - HSV negative, final cx neg. Dr. Martinez actively following. Respiratory: Acute hypoxemic respiratory failure- improving. Extubated 04/14, reintubated 04/14, extubated 04/17 reintubated 04/18 Continue with vent support keep sat >92% Albuterol/ipratropium aerosols nebs every 6 hours scheduled, albuterol aerosols every 2 hours when necessary SBT daily as hu. Check CXR patient might need trach/PEG tube placements Cardiovascular: Hypertensive emergency-resolved History of hypertension Hyperlipidemia Congestive heart failure - ejection fraction 55-60% 2009 Labetalol, hydralazine IV , PRN to maintain SBP <160 Serial troponin were negative. propranolol 40mg po q6h On metoprolol 50 mg sustained release daily at home continue clopidogrel 75 mg by mouth daily/home medication Resumed 04/09 Continue pravastatin 40 mg by mouth daily/home medication for dyslipidemia clonidine 0.2mg po q8hr. Renal//FEN: Chronic kidney disease stage IIIB Monitor renal function, electrolytes replacement per protocol. On Free water 250ml Q8, monitor sodium level. Diurese with Lasix 40mg x1 GI: Esophageal stricture -history of esophageal dilatation GERD Elevated ammonia Constipation- resolved. On tube feeds- Glucerna 1.5 @ 50ml/hr Lansoprazole 30 mg daily GI prophylaxis. On Dexlansoprazole 60 mg times daily at home Docusate sodium/senna 1 tablet twice a day for bowel regimen. polyethylene glycol 17 g twice a day and lactulose 30 cc 4x a day KUB 04/08 - mild ileus ID: Sepsis Escherichia coli UTI Pneumonia Monitor CBC Blood cultures 04/03 - negative Urine culture 04/03 - Escherichia coli, pansensitive sputum 04/13: Burkholderia Strep pneumococcal antigen 04/03 - negative CSF 04/07 Gram stain, fungal and AFB negative as of 04/08 urine culture 04/15: Group D enterococcus, Burkholderia Recent history of C. difficile colitis. Lactinex tid. Continue vancomycin/Zosyn started on 04/15 HEME/ONC: History of cervical cancer Normocytic anemia History of right lower extremity DVT - posterior tibial and femoral vein previously on Apixaban Clopidogrel 75 mg daily initially held for LP. Restarted 04/09 Lactate level 1.8 Recheck Doppler bilateral and right upper lower extremities 04/07 negative for DVT guaiac negative. Monitor CBC Endocrine: Diabetes mellitus Low cortisol Glucose monitoring per ICU protocol, low dose regimen Novulog every 6 hours Prophylaxis: GI Prophylaxis Lansoprazole 30 mg daily DVT Prophylaxis -- SCDs SQH. Lines: right sided PICC Discussed with patient's sister who is POA update her on her condition. [facility]. Level 3 Lian Cuellar MD Apr 20, 2017 11:10
[2017-04-20] MEDS ORDERED: FUROSEMIDE 40 MG/4 ML VIAL IV PUSH ONE (12:00)
--- NOTE | 2017-04-20 12:03 | RADRPT ---
EXAM DATE/TIME: 04/20/2017 11:17 [facility] COMPARISON: CHEST SINGLE AP, April 18, 2017, 21:55. INDICATIONS : VDRF. MEDICAL HISTORY : Cardiovascular disease. Diabetes mellitus type I. Osteoporosis. Polio, cervical cancer. SURGICAL HISTORY : Appendectomy. Hysterectomy. Cholecystectomy ENCOUNTER: Subsequent ACUITY: 4 - 6 days PAIN SCORE: Non-responsive. LOCATION: Bilateral chest FINDINGS: ET tube and nasogastric tube in good position. Central line in position. Patchy airspace disease in both right and left lungs. CONCLUSION: Increasing patchy airspace disease in both lungs. Support apparatus in good position.. Roque Tripathi MD FACR on April 20, 2017 at 11:59 Board Certified Radiologist. This report was verified electronically.
[2017-04-20] MEDS ORDERED: VANCOMYCIN 1,000 MG/NS 250 ML IV SCH ×2 (14:00)
[2017-04-20] MEDS: ACETAMINOPHEN 650 MG/20.3 ML UDC NG PRN (16:57)
--- NOTE | 2017-04-21 10:18 | MB ---
cc: BRADY BETANCOURT MD DATE OF CONSULTATION: 04/20/[address] Lian Springer. REASON FOR CONSULTATION Pulm management. HISTORY OF PRESENT ILLNESS Ms. Darden is a pleasant 76-year-old female with history of COPD, hypertension, history of CVA. The patient was brought to the hospital by the [facility]. As per her sister normally she is very active. On the day of admission she was seen by sister, she was banging her head against a chair. She had frontal contusion. She was brought to the hospital. Her blood pressure was 200 /92. While she was in the hospital she had a CT scan of the brain done, which was negative. EEG was done. The patient developed respiratory failure and she was intubated. She was successfully extubated but needed reintubation. Currently she is on C-PAP trial. She was on Diprivan, which was weaned. The patient's [facility] LABORATORY DATA Her lab evaluation reveals WBC count 10.3, hemoglobin 7.9, hematocrit 24.1, MCV 93, platelet count 504, sodium 148, potassium 4.1, chloride 117, CO2 22, BUN 27, creatinine 1.13, blood gas on 40% FIO2 pH 7.35, pCO2 35, pO2 110, bicarb 19. Urine culture and sputum culture positive for Burkholderia cepacia. MEDICATIONS She is currently takin. Vancomycin IV. 2. Fentanyl IV. 3. Mucomyst nebulizer treatment. 4. Heparin subcu. 5. Zosyn IV. 7. Keppra 500 mg q.6 hours. 8. Prevacid 30 mg a day. 9. Labetalol 10 mg p.r.n. ALLERGIES INFLUENZA VACCINE, ACETAMINOPHEN, CODEINE, HYDROCODONE, MEPERIDINE, MORPHINE. 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 FAMILY HISTORY She has one son. She lives for more than 40 years with her sister. REVIEW OF SYSTEMS The patient's sister states normally she is up, around and active. Has history of stroke. No malignancy. No DVT or pulmonary embolism. PHYSICAL EXAMINATION VITAL SIGNS: A Frail elderly female on ventilator. Blood pressure 102/51, heart rate 77, respirations 16, temperature 99. HEENT: Pupils are equal, round, reactive to light. Oral mucosa, nasal mucosa normal. NECK: JVP not raised. CHEST: Equal air entry. Has rhonchi. CVS: S1, S2 normal. ABDOMEN: Benign. EXTREMITIES: No edema. IMPRESSION 1. Ventilator dependent respiratory failure status post reintubation. 2. COPD. 3. Hypertension. 4. Chronic kidney disease. 5. Sepsis. 6. UTI. 7. Diabetes mellitus. PLAN I discussed with the patient's sister at the bedside. She will be maintained on ventilator. [facility] I will continue to take care of her Ventilator and wean her from the ventilator, she is not able to wean from the ventilator, she will need tracheostomy tube placement. Continue antibiotic vancomycin and Zosyn, aerosol treatment. Further treatment will depend on the course in the hospital. Thank you Dr. Springer for this consultation. MD NONI Chavez/CHESTER /2:45 PM /9:48 AM [id number]
[2017-04-22] MEDS ORDERED: PHARMACY ORDERED LAB ONE (13:45)
== END 2017-04-20 18:50 | DRG 870 ==
LOC: NEPE 08:29 → NEDA 10:39 → HIMN 12:16
PROVIDERS: ADMIT Anesthesiology; ATTEND Anesthesiology
PROC: 5A1955Z Respiratory Ventilation, Greater than 96 Consecutive Hours (ICD-10-PCS; principal; 2017-04-03)
PROC: 0BH17EZ Insertion of Endotracheal Airway into Trachea, Via Natural or Artificial Opening (ICD-10-PCS; 2017-04-03)
PROC: 0T9B70Z Drainage of Bladder with Drainage Device, Via Natural or Artificial Opening (ICD-10-PCS; 2017-04-03)
PROC: 009U3ZX Drainage of Spinal Canal, Percutaneous Approach, Diagnostic (ICD-10-PCS; 2017-04-03)
PROC: 30233N1 Transfusion of Nonautologous Red Blood Cells into Peripheral Vein, Percutaneous Approach (ICD-10-PCS; 2017-04-12)
PROC: 0BH17EZ Insertion of Endotracheal Airway into Trachea, Via Natural or Artificial Opening (ICD-10-PCS; 2017-04-15)
PROC: 5A1945Z Respiratory Ventilation, 24-96 Consecutive Hours (ICD-10-PCS; 2017-04-15)
PROC: 5A1945Z Respiratory Ventilation, 24-96 Consecutive Hours (ICD-10-PCS; 2017-04-18)
PROC: 0BH17EZ Insertion of Endotracheal Airway into Trachea, Via Natural or Artificial Opening (ICD-10-PCS; 2017-04-18)
DX: A41.9 Sepsis, unspecified organism (principal); J96.01 Acute respiratory failure with hypoxia; J18.9 Pneumonia, unspecified organism; G72.81 Critical illness myopathy; G62.81 Critical illness polyneuropathy; I13.0 Hypertensive heart and chronic kidney disease with heart failure and stage 1 through stage 4 chronic kidney disease, or unspecified chronic kidney disease; N17.9 Acute kidney failure, unspecified; E87.4 Mixed disorder of acid-base balance; Z99.11 Dependence on respirator [ventilator] status; M62.82 Rhabdomyolysis; I50.9 Heart failure, unspecified; K56.7 Ileus, unspecified; N39.0 Urinary tract infection, site not specified; I16.1 Hypertensive emergency; J44.0 Chronic obstructive pulmonary disease with (acute) lower respiratory infection; E11.22 Type 2 diabetes mellitus with diabetic chronic kidney disease; N18.3 Chronic kidney disease, stage 3 (moderate); B96.20 Unspecified Escherichia coli [E. coli] as the cause of diseases classified elsewhere; Z86.73 Personal history of transient ischemic attack (TIA), and cerebral infarction without residual deficits; F32.9 Major depressive disorder, single episode, unspecified; F41.9 Anxiety disorder, unspecified; G14 Postpolio syndrome; G40.901 Epilepsy, unspecified, not intractable, with status epilepticus; Z85.41 Personal history of malignant neoplasm of cervix uteri; Z90.710 Acquired absence of both cervix and uterus; Z86.718 Personal history of other venous thrombosis and embolism; M19.90 Unspecified osteoarthritis, unspecified site; K21.9 Gastro-esophageal reflux disease without esophagitis; E78.5 Hyperlipidemia, unspecified; Z87.440 Personal history of urinary (tract) infections; Z79.01 Long term (current) use of anticoagulants; S00.83XA Contusion of other part of head, initial encounter; X58.XXXA Exposure to other specified factors, initial encounter; Y93.89 Activity, other specified; Z79.02 Long term (current) use of antithrombotics/antiplatelets; E88.09 Other disorders of plasma-protein metabolism, not elsewhere classified; E87.6 Hypokalemia; R00.0 Tachycardia, unspecified; G89.29 Other chronic pain; D64.9 Anemia, unspecified
CPT/HCPCS: 31500; 36430; 36569; 36600; 62270; 70450; 70544; 70547; 70551; 70553; 71010; 71045; 72125; 74000; 74176; 76937; 77003; 80048; 80053; 80185; 80202; 80307; 81001; 82140; 82150; 82248; 82272; 82533; 82550; 82552; 82805; 82945; 82948; 83010; 83605; 83615; 83690; 83735; 84100; 84132; 84145; 84157; 84443; 84484; 85007; 85014; 85018; 85025; 85027; 85060; 85610; 85730; 86403; 86592; 86618; 86651; 86652; 86653; 86654; 86850; 86900; 86901; 86920; 87015; 87040; 87070; 87077; 87086; 87102; 87116; 87186; 87205; 87206; 87449; 87493; 87529; 87641; 89051; 93005; 93970; 93971; 94002; 94003; 94150; 94640; 94664; 94667; 94668; 95819; 96365; 96375; A9579; J0131; J0133; J0330; J0360; J0692; J0696; J0834; J1642; J1644; J1815; J1940; J1953; J2060; J2212; J2250; J2310; J2543; J2765; J3010; J3370; J3475; J3480; J7030; J7040; J7050; J7070; J7120; J7608; J7613; P9016; Q2009

== ENCOUNTER 2017-08-09 11:27 | Observation (INO) | payer MEDICARE, OTHER ==
[~2017-08-09] VITALS: Ht 172.7 cm; Wt 59.1 kg
[~2017-08-09 11:27] MED LIST changes: -APIX5TAB PO; +SERT-132 PO; -SERT25TA83 PO; +TRAM50TA PO; -TRAZ1TAB14 PO
[2017-08-09 11:36] VITALS: BP 137/80; PULSE 90; RESP 16; TEMP 98.3; O2SAT 100
[2017-08-09] MEDS ORDERED: SODIUM CHLOR 0.9% 1000 ML INJ 1,000 ML IV ONE (11:41)
[2017-08-09] MEDS ORDERED: SODIUM CHLORIDE 0.9% FLUSH 10 ML FLUSH IVF PRN (11:45)
--- NOTE | 2017-08-09 11:58 | PD ---
HPI Chief Complaint: Complaint Time Seen by Provider: 11:39 Travel History International Travel<30 days: No Contact w/Intl Traveler<30days: No Traveled to known affect area: No History of Present Illness HPI 77-year-old female, poor historian coming from home via [facility] evaluation of urinary tract infection symptoms for approximately 4 weeks. Patient states that she has had dysuria, frequency, dark urine, and malodorous urine for the last 4 weeks but decided to come in today because she developed right upper quadrant and bilateral flank pain. Patient states that she has had home health care for a recent hospital visit who has been changing her bandages from her previous tracheostomy site. She is due to have these changed tomorrow. Patient states that she was given an antibiotic by her nurse 3 days ago and states compliance with this medication. She is unable to tell me what medication this is. She denies fevers or chills. Denies nausea, vomiting or diarrhea. Denies shortness of breath or chest pain. Says she has a cough however, this cough is been present since her last hospital visit status post extubation. Patient is on a blood thinner for an unknown reason and has a history of seizure disorder and diabetes mellitus. [facility] states that her blood sugar was 119, vital signs stable. Patient requests that I speak with her sister, Paulina upon arrival. Paulina states that patient has had a decreased appetite in combination with these urinary symptoms. She requests that patient be admitted for treatment and evaluation. PFSH Past Medical History Hx Anticoagulant Therapy: Yes Anemia: Yes Arthritis: Yes Anxiety: Yes Depression: Yes Cancer: Yes (OVARIAN CA) Cardiovascular Problems: Yes High Cholesterol: Yes Chest Pain: No Congestive Heart Failure: No Cerebrovascular Accident: Yes Diabetes: Yes Patient Takes Glucophage: No Diminished Hearing: No Gastrointestinal Disorders: Yes (esophageal strictures) GERD: Yes Genitourinary: Yes (incontinent) Headaches: No Hypertension: Yes (PT DENIES) Musculoskeletal: Yes (fracture to right ankle ) Neurologic: Yes (SEIZURE DISORDER, HX CVA) Reproductive: Yes (CERVICAL CANCER) Respiratory: Yes (COPD) Immunizations Current: No Migraines: No Seizures: Yes PNEUMOCCOCAL Vaccine (Year): 2 ?: Not Menopausal: Yes Past Surgical History Appendectomy: Yes Cardiac Surgery: No Cholecystectomy: Yes Ear Surgery: No Endocrine Surgery: Yes Eye Surgery: No Genitourinary Surgery: Yes Gynecologic Surgery: Yes (HYSTERECTOMY,CERVICAL CA REMOVED.) Hysterectomy: Yes (OVARIAN CANCER) Neurologic Surgery: Yes (C4,C5,C6 PLATE PLACED) Oral Surgery: Yes Thoracic Surgery: No Other Surgery: Yes (LAPAROSCOPIC SP(WRAP STOMACH AROUND ESOPHAGUS TO HELP WITH GERD)) Social History Alcohol Use: No (DENIES) Tobacco Use: No (DENIES) Substance Use: No Allergies-Medications (Allergen,Severity, Reaction): Coded Allergies: Influenza Virus Vaccines (Verified Allergy, Intermediate, 08/09/17) "ALLERGIC TO EGGS SO I CAN NOT HAVE THE FLU SHOT" egg (Verified Allergy, Intermediate, 08/09/17) codeine (Verified Allergy, Mild, 08/09/17) meperidine (Verified Allergy, Mild, 08/09/17) morphine (Verified Allergy, Mild, 08/09/17) acetaminophen (Verified Adverse Reaction, Mild, HEADACHE, 08/09/17) hydrocodone (Verified Adverse Reaction, Mild, HEADACHE, 08/09/17) Reported Meds & Prescriptions Reported Meds & Active Scripts Active Reported Dexilant (Dexlansoprazole) 60 Mg Cap.bp Sertraline (Sertraline HCl) 50 Mg Tab 50 Mg PO DAILY Tramadol (Tramadol HCl) 50 Mg Tab 50 Mg PO Q4H PRN Vimpat (Lacosamide) 100 Mg Tab 100 Mg PO BID Baclofen 10 Mg Tab 10 Mg PO TID Clopidogrel (Clopidogrel Bisulfate) 75 Mg Tab 75 Mg PO DAILY Proair Hfa 8.5 GM Inh (Albuterol Sulfate) 90 Mcg/Act Aer 2 Puff INH Q6H PRN 108 mcg/actuation Metformin ER (Metformin HCl) 1,000 Mg Tatiana 1,000 Mg PO BID With evening meal Toprol XL (Metoprolol Succinate) 50 Mg Tab 50 Mg PO BID Pravachol (Pravastatin) 40 Mg Tab 40 Mg PO HS Review of Systems Except as stated in HPI: all other systems reviewed are Neg Physical Exam Narrative GENERAL: Well-developed thin no apparent distress SKIN: Focused skin assessment warm/dry. HEAD: Atraumatic. Normocephalic. EYES: Pupils equal and round. No scleral icterus. No injection or drainage. ENT: No nasal bleeding or discharge. Mucous membranes pink and on the stage driver side. NECK: Trachea midline. No JVD. Bandage in place mid trachea without obvious exudate. CARDIOVASCULAR: Regular rate and rhythm. No murmur appreciated. RESPIRATORY: No accessory muscle use.. Breath sounds equal bilaterally. Slight rhonchi bilateral lower lobes GASTROINTESTINAL: Abdomen soft, tender palpation localized to the lower abdominal region. Mild tenderness palpation to the right upper quadrant. positive CVA tenderness left-sided. Previous G-tube and healing process. No significant erythema or edema. MUSCULOSKELETAL: No obvious deformities. No clubbing. No cyanosis. No edema. Homans sign negative bilaterally NEUROLOGICAL: Awake and alert. No obvious cranial nerve deficits. Motor grossly within normal limits. Normal speech. PSYCHIATRIC: Appropriate mood and affect; insight and judgment normal. Data Data Last Documented VS Vital Signs Date Time Temp Pulse Resp B/P (MAP) Pulse Ox O2 Delivery O2 Flow Rate FiO2 08/09/17 12:00 98.3 92 16 127/76 (93) 100 Room Air Orders Orders Complete Blood Count With Diff (08/09/17 11:41) Comprehensive Metabolic Panel (08/09/17 11:41) Urinalysis - C+S If Indicated (08/09/17 11:41) Iv Access Insert/Monitor (08/09/17 11:41) Ecg Monitoring (08/09/17 11:41) Sodium Chloride 0.9% Flush (Ns Flush) (08/09/17 11:45) Sodium Chlor 0.9% 1000 Ml Inj (Ns 1000 M (08/09/17 11:41) Sepsis Workup Initiated (08/09/17 ) Prothrombin Time / Inr (Pt) (08/09/17 11:41) Act Partial Throm Time (Ptt) (08/09/17 11:41) Lactic Acid Sepsis Protocol (08/09/17 11:41) Lipase (08/09/17 11:41) Blood Culture (08/09/17 11:41) Chest, Single Ap (08/09/17 11:41) Oximetry (08/09/17 11:41) Ct Abd/Pel W Iv Contrast(Rout) (08/09/17 11:41) Urine Culture (08/09/17 12:00) Ceftriaxone Inj (Rocephin Inj) (08/09/17 13:15) Iohexol 350 Inj (Omnipaque 350 Inj) (08/09/17 13:33) Admit Order (Ed Use Only) (5/1/18 14:37) Labs Laboratory Tests Test 08/09/17 12:00 08/09/17 12:05 Urine Color YELLOW Urine Turbidity CLOUDY Urine pH 5.5 Urine Specific [place] 1.018 Urine Protein 30 mg/dL Urine Glucose (UA) NEG mg/dL Urine Ketones TRACE mg/dL Urine Occult Blood MOD Urine Nitrite NEG Urine Bilirubin NEG Urine Urobilinogen LESS THAN 2.0 MG/DL Urine Leukocyte Esterase LARGE Urine RBC 65 /hpf Urine WBC /hpf Urine WBC Clumps MANY Urine Bacteria OCC /hpf Urine Mucus FEW /lpf Microscopic Urinalysis Comment CATH-CULTURE IND Lactic Acid Level 1.5 mmol/L White Blood Count 10.3 TH/MM3 Red Blood Count 3.33 MIL/MM3 Hemoglobin 10.4 GM/DL Hematocrit 30.9 % Mean Corpuscular Volume 92.8 FL Mean Corpuscular Hemoglobin 31.3 PG Mean Corpuscular Hemoglobin Concent 33.7 % Red Cell Distribution Width 15.7 % Platelet Count 549 TH/MM3 Mean Platelet Volume 7.0 FL Neutrophils (%) (Auto) 74.6 % Lymphocytes (%) (Auto) 16.8 % Monocytes (%) (Auto) 6.3 % Eosinophils (%) (Auto) 1.9 % Basophils (%) (Auto) 0.4 % Neutrophils # (Auto) 7.7 TH/MM3 Lymphocytes # (Auto) 1.7 TH/MM3 Monocytes # (Auto) 0.6 TH/MM3 Eosinophils # (Auto) 0.2 TH/MM3 Basophils # (Auto) 0.0 TH/MM3 CBC Comment DIFF FINAL Differential Comment Prothrombin Time 10.9 SEC Prothromb Time International Ratio 1.1 RATIO Activated Partial Thromboplast Time 27.6 SEC Blood Urea Nitrogen 12 MG/DL Creatinine 1.14 MG/DL Random Glucose 119 MG/DL Total Protein 7.6 GM/DL Albumin 3.4 GM/DL Calcium Level 9.4 MG/DL Alkaline Phosphatase 112 U/L Aspartate Amino Transf (AST/SGOT) 14 U/L Alanine Aminotransferase (ALT/SGPT) 15 U/L Total Bilirubin 0.2 MG/DL Sodium Level 140 MEQ/L Potassium Level 4.5 MEQ/L Chloride Level 111 MEQ/L Carbon Dioxide Level 18.7 MEQ/L Anion Gap 10 MEQ/L Estimat Glomerular Filtration Rate 46 ML/MIN Lipase 178 U/L [facility] Medical Decision Making Medical Screen Exam Complete: Yes Emergency Medical Condition: Yes Differential Diagnosis UTI, hydronephrosis, nephrolithiasis, sepsis, pyelonephritis Narrative Course 77 year female presents emergency for evaluation of urinary tract infection. According to patient, her nurse placed on antibiotic 3 days ago from her urologist, Dr. Gtz and states compliance with medication. She is unable to tell me the name of this medication. Labs and imaging studies ordered. After review the EMR, it appears that patient was discharged April 20 after admission April 03, 2017 for altered mental status and uncontrolled hypertension. She was evaluated by neurologist and received an EEG. An LP was performed as well and was culture negative. She was intubated and extubated multiple times and also required a G-tube for nutrition. She was subsequently discharged to a long-term facility. Past medical history of CVA, COPD, seizure disorder, anxiety, depression, hypertension, hyperlipidemia, CHF, GERD, esophageal strictures, chronic UTIs. CBC & BMP Diagram 08/09/17 12:05 Total Protein 7.6, Albumin 3.4, Calcium Level 9.4, Alkaline Phosphatase 112, Aspartate Amino Transf (AST/SGOT) 14 L, Alanine Aminotransferase (ALT/SGPT) 15, Total Bilirubin 0.2 Urinalysis suggestive of urinary tract infection. Last Impressions Chest X-Ray 08/09/17 1141 Signed Impressions: Service Date/Time: Wednesday, August 09, 2017 11:51 - CONCLUSION: No acute disease. There is no evidence of pneumonia. Alvaro Best MD Abdomen/Pelvis CT 08/09/17 1141 Signed Impressions: Service Date/Time: Wednesday, August 09, 2017 13:26 - CONCLUSION: 1. Dilation of the extrahepatic biliary system up to 11 mm which is above normal post cholecystectomy. This could represent reservoir phenomenon, but since there is dilation down to the ampulla, distal obstruction cannot be excluded. May consider performing a patent biliary tract scan to evaluate biliary excretory dynamics. 2. No evidence of hydronephrosis. No calcified stones seen. Dano Mercer MD Rocephin 1g administered. Pt should be admitted for failed outpatient therapy of abx for UTI. She is stable at this time. In addition, the finding on the CT of the abdomen and pelvis were suggestive of a possible obstruction of the biliary tree, consider further imaging for evaluation. If the patient does have mild right upper quadrant pain with palpation without rebound tenderness. Most of her pain is located in her pelvis region especially when she urinates. I spoke with Dr. Limon who agreed to the admission. Diagnosis Primary Impression: UTI (urinary tract infection) Qualified Codes: N30.00 - Acute cystitis without hematuria Additional Impression: Dilation of biliary tract Admitting Information Admitting Physician Requests: Observation Disposition: DISCHARGE HOME Condition: Stable Nikole Longoria August 09, 2017 11:58
[2017-08-09 12:00] VITALS: BP 127/76; PULSE 92; RESP 16; TEMP 98.3; O2SAT 100
--- NOTE | 2017-08-09 12:08 | RADRPT ---
EXAM DATE/TIME: 08/09/2017 11:51 [facility] COMPARISON: CHEST SINGLE AP, April 20, 2017, 11:17. INDICATIONS : Cough. MEDICAL HISTORY : Hypercholesterolemia. Hypertension Diabetes mellitus type II. Siezures. SURGICAL HISTORY : Fusion, cervical. Cholecystectomy. Hysterectomy. Lumbar discectomy. ENCOUNTER: Initial ACUITY: 1 day PAIN SCORE: 0/10 LOCATION: Bilateral chest FINDINGS: A single view of the chest demonstrates the lungs to be symmetrically aerated without evidence of mas s, infiltrate or effusion. The cardiomediastinal contours are unremarkable. Osseous structures are intact. CONCLUSION: No acute disease. There is no evidence of pneumonia. Alvaro Best MD on August 09, 2017 at 12:07 Board Certified Radiologist. This report was verified electronically.
[2017-08-09 12:23] LABS: AUTOMATED NEUTROPHIL # 7.7 TH/MM3 (1.8-7.7); BASOPHIL % 0.4 % (0.0-2.0); EOSINOPHIL # 0.2 TH/MM3 (0-0.4); EOSINOPHIL % 1.9 % (0.0-4.0); HEMATOCRIT 30.9 % (35.0-46.0); HEMOGLOBIN 10.4 GM/DL (11.6-15.3); LYMPH % 16.8 % (9.0-44.0); LYMPHOCYTE # 1.7 TH/MM3 (1.0-4.8); MEAN CELL VOLUME 92.8 FL (80.0-100.0); MEAN CORPUSCULAR HEMOGLOBIN 31.3 PG (27.0-34.0); MEAN CORPUSCULAR HGB CONC 33.7 % (32.0-36.0); MONO % 6.3 % (0.0-8.0); MONOCYTE # 0.6 TH/MM3 (0-0.9); NEUT % 74.6 % (16.0-70.0); PLATELET COUNT 549 TH/MM3 (150-450); RED BLOOD COUNT 3.33 MIL/MM3 (4.00-5.30); RED CELL DISTRIBUTION WIDTH 15.7 % (11.6-17.2); WHITE BLOOD COUNT 10.3 TH/MM3 (4.0-11.0)
[2017-08-09 12:25] LABS: INTERNATIONAL NORMALIZED RATIO 1.1 RATIO; PROTHROMBIN TIME - PATIENT 10.9 SEC (9.8-11.6)
[2017-08-09 12:25] LABS: BACTERIA, URINE OCC /hpf; BILIRUBIN, URINE NEG (NEG); BLOOD, URINE MOD (NEG); GLUCOSE,URINE NEG (NEG); KETONE, URINE TRACE mg/dL (NEG); MUCUS URINE FEW /lpf (OCC); NITRITE,URINE NEG (NEG); PH, URINE 5.5 (5.0-8.5); URINE COLOR YELLOW (YELLW/STRAW); URINE LEUKOCYTE ESTERASE LARGE (NEG); WHITE BLOOD CELL CLUMPS MANY
[2017-08-09 12:41] LABS: ALBUMIN 3.4 GM/DL (3.4-5.0); ALT (GPT) 15 U/L (10-53); AST (GOT) 14 U/L (15-37); BICARBONATE 18.7 MEQ/L (21.0-32.0); BLOOD UREA NITROGEN 12 MG/DL (7-18); CALCIUM 9.4 MG/DL (8.5-10.1); CHLORIDE 111 MEQ/L (98-107); CREATININE 1.14 MG/DL (0.50-1.00); GLOMERULAR FILTRATION RATE 46 ML/MIN (>89); GLUCOSE,RANDOM 119 MG/DL (74-106); SODIUM (NA) 140 MEQ/L (136-145)
[2017-08-09 12:44] LABS: ALKALINE PHOSPHATASE 112 U/L (45-117); TOTAL BILIRUBIN ADULT 0.2 MG/DL (0.2-1.0); TOTAL PROTEIN 7.6 GM/DL (6.4-8.2)
[2017-08-09] MEDS ORDERED: cefTRIAXone INJ 1,000 MG in SODIUM CHLORIDE 0.9% INJ 100 ML IV ONE (13:15)
[2017-08-09] MEDS ORDERED: IOHEXOL 350 MG/ML 10 ML VIAL (for RAD DIAG) IVCONTRAST ONE (13:33)
--- NOTE | 2017-08-09 13:50 | RADRPT ---
EXAM DATE/TIME: 08/09/2017 13:26 [facility] COMPARISON: No previous studies available for comparison. INDICATIONS : Generalized abdomen pain, recent UTI. IV CONTRAST: 94 cc Omnipaque 350 (iohexol) IV ORAL CONTRAST: No oral contrast ingested. RADIATION DOSE: 6.02 CTDIvol (mGy) MEDICAL HISTORY : Cardiovascular disease. Hypertension. Cervical cancer SURGICAL HISTORY : Appendectomy. Hysterectomy.Cholecystectomy. ENCOUNTER: Initial ACUITY: 1 week PAIN SCALE: 8/10 LOCATION: Bilateral abdomen TECHNIQUE: Volumetric scanning of the abdomen and pelvis was performed. Using automated exposure control and ad justment of the mA and/or kV according to patient size, radiation dose was kept as low as reasonably achievable to obtain optimal diagnostic quality images. DICOM format image data is available electro nically for review and comparison. FINDINGS: LOWER LUNGS: The visualized lower lungs are clear. LIVER: Homogeneous enhancement throughout the liver. Cholecystectomy. The extrahepatic biliary system is p rominent, measuring up to 11 mm with dilation down to the ampulla. SPLEEN: Normal size without lesion. PANCREAS: Within normal limits. KIDNEYS: Normal in size and shape. There is no mass, stone or hydronephrosis. ADRENAL GLANDS: Within normal limits. VASCULAR: There is no aortic aneurysm. BOWEL/MESENTERY: No dilated loops of small or large bowel. No evidence of free fluid. ABDOMINAL WALL: Within normal limits. RETROPERITONEUM: There is no lymphadenopathy. BLADDER: No wall thickening or mass. REPRODUCTIVE: Within normal limits. INGUINAL: There is no lymphadenopathy or hernia. MUSCULOSKELETAL: Within normal limits for patient age. CONCLUSION: 1. Dilation of the extrahepatic biliary system up to 11 mm which is above normal post cholecystectomy . This could represent reservoir phenomenon, but since there is dilation down to the ampulla, distal obstruction cannot be excluded. May consider performing a patent biliary tract scan to evaluate lynnette iary excretory dynamics. 2. No evidence of hydronephrosis. No calcified stones seen. Dano Mercer MD on August 09, 2017 at 13:40 Board Certified Radiologist. This report was verified electronically.
--- NOTE | 2017-08-09 15:40 | HHI.HP ---
[facility] Unknown Admission Diagnosis UTI failed outpt abx therapy Diagnoses: Chief Complaint: UTI Travel History International Travel<30 Days: No Contact w/Intl Traveler <30 Da: No Traveled to Known Affected Are: No History of Present Illness 77-year-old female brought in by E back with complaint of worsening urinary tract infection. Patient reports she has been fighting with her symptoms for the past 4 weeks. She reports dysuria, suprapubic pain that has been ongoing. She states she was seen by her urologist and was prescribed antibiotics about 4 days ago but that has not made any difference. She believes she had fevers up to 101. Her sister Paulina at bedside provided much of the history. Workup in the emergency room confirm abnormal urinalysis. Probable UTI, failed outpatient therapy. Review of Systems Constitutional: COMPLAINS OF: Fever, DENIES: Chills Respiratory: DENIES: Cough, Shortness of breath Cardiovascular: DENIES: Chest pain Gastrointestinal: DENIES: Nausea, Vomiting Genitourinary: COMPLAINS OF: Urinary frequency, Urgency, Dysuria Integumentary: DENIES: Rash Neurologic: DENIES: Headache Psychiatric: DENIES: Confusion Past Family Social History Past Medical History Anemia OA Anxiety/depression Cervical cancer DM Hyperlipidemia CVA Diabetes mellitus Esophageal stricture GERD Incontinence Seizures Chronic bronchitis Hx of polio Past Surgical History Appendectomy Cholecystectomy Hysterectomy with cervical cancer. C4-C6 plate placed Laparoscopic Hernandez procedure Oral surgery R knee replacement Reported Medications Reported Meds & Active Scripts Active Reported Dexilant (Dexlansoprazole) 60 Mg Cap.bp Sertraline (Sertraline HCl) 50 Mg Tab 50 Mg PO DAILY Tramadol (Tramadol HCl) 50 Mg Tab 50 Mg PO Q4H PRN Vimpat (Lacosamide) 100 Mg Tab 100 Mg PO BID Baclofen 10 Mg Tab 10 Mg PO TID Clopidogrel (Clopidogrel Bisulfate) 75 Mg Tab 75 Mg PO DAILY Proair Hfa 8.5 GM Inh (Albuterol Sulfate) 90 Mcg/Act Aer 2 Puff INH Q6H PRN 108 mcg/actuation Metformin ER (Metformin HCl) 1,000 Mg Tatiana 1,000 Mg PO BID With evening meal Toprol XL (Metoprolol Succinate) 50 Mg Tab 50 Mg PO BID Pravachol (Pravastatin) 40 Mg Tab 40 Mg PO HS Allergies: Coded Allergies: Influenza Virus Vaccines (Verified Allergy, Intermediate, 08/09/17) "ALLERGIC TO EGGS SO I CAN NOT HAVE THE FLU SHOT" egg (Verified Allergy, Intermediate, 08/09/17) codeine (Verified Allergy, Mild, 08/09/17) meperidine (Verified Allergy, Mild, 08/09/17) morphine (Verified Allergy, Mild, 08/09/17) acetaminophen (Verified Adverse Reaction, Mild, HEADACHE, 08/09/17) hydrocodone (Verified Adverse Reaction, Mild, HEADACHE, 08/09/17) Family History Patient was adopted. Social History No tobacco or alcohol use. Physical Exam Vital Signs Vital Signs Date Time Temp Pulse Resp B/P (MAP) Pulse Ox O2 Delivery O2 Flow Rate FiO2 08/09/17 12:00 98.3 92 16 127/76 (93) 100 Room Air 08/09/17 11:41 16 08/09/17 11:36 98.3 90 16 137/80 (99) 100 Physical Exam GENERAL: Elderly female in no acute distress. SKIN: No rashes, ecchymoses or lesions. Cool and dry. HEAD: Atraumatic. Normocephalic. No temporal or scalp tenderness. EYES: Pupils equal round and reactive. Extraocular motions intact. No scleral icterus. No injection or drainage. ENT: Nose without bleeding, purulent drainage or septal hematoma. Throat without erythema, tonsillar hypertrophy or exudate. Uvula midline. Airway patent. NECK: Trachea midline. No JVD or lymphadenopathy. Supple, nontender, no meningeal signs. CARDIOVASCULAR: Regular rate and rhythm without murmurs, gallops, or rubs. RESPIRATORY: Clear to auscultation. Breath sounds equal bilaterally. No wheezes , rales, or rhonchi. GASTROINTESTINAL: Patient endorse suprapubic tenderness. Mild suprapubic distention. MUSCULOSKELETAL: Extremities without clubbing, cyanosis, or edema. No calf tenderness. Negative Homans sign bilaterally. NEUROLOGICAL: Awake and alert. Cranial nerves II through XII intact. Motor and sensory grossly within normal limits. Five out of 5 muscle strength in all muscle groups. Normal speech. Laboratory Laboratory Tests Test 08/09/17 12:00 08/09/17 12:05 Urine Color YELLOW Urine Turbidity CLOUDY Urine pH 5.5 Urine Specific [place] 1.018 Urine Protein 30 Urine Glucose (UA) NEG Urine Ketones TRACE Urine Occult Blood MOD Urine Nitrite NEG Urine Bilirubin NEG Urine Urobilinogen LESS THAN 2.0 Urine Leukocyte Esterase LARGE Urine RBC 65 Urine WBC Urine WBC Clumps MANY Urine Bacteria OCC Urine Mucus FEW Microscopic Urinalysis Comment CATH-CULTURE IND Lactic Acid Level 1.5 White Blood Count 10.3 Red Blood Count 3.33 Hemoglobin 10.4 Hematocrit 30.9 Mean Corpuscular Volume 92.8 Mean Corpuscular Hemoglobin 31.3 Mean Corpuscular Hemoglobin Concent 33.7 Red Cell Distribution Width 15.7 Platelet Count 549 Mean Platelet Volume 7.0 Neutrophils (%) (Auto) 74.6 Lymphocytes (%) (Auto) 16.8 Monocytes (%) (Auto) 6.3 Eosinophils (%) (Auto) 1.9 Basophils (%) (Auto) 0.4 Neutrophils # (Auto) 7.7 Lymphocytes # (Auto) 1.7 Monocytes # (Auto) 0.6 Eosinophils # (Auto) 0.2 Basophils # (Auto) 0.0 CBC Comment DIFF FINAL Differential Comment Prothrombin Time 10.9 Prothromb Time International Ratio 1.1 Activated Partial Thromboplast Time 27.6 Blood Urea Nitrogen 12 Creatinine 1.14 Random Glucose 119 Total Protein 7.6 Albumin 3.4 Calcium Level 9.4 Alkaline Phosphatase 112 Aspartate Amino Transf (AST/SGOT) 14 Alanine Aminotransferase (ALT/SGPT) 15 Total Bilirubin 0.2 Sodium Level 140 Potassium Level 4.5 Chloride Level 111 Carbon Dioxide Level 18.7 Anion Gap 10 Estimat Glomerular Filtration Rate 46 Lipase 178 Date/Time Source Procedure Growth Status 08/09/17 12:05 Blood Peripheral Aerobic Blood Culture Pending Received 08/09/17 12:05 Blood Peripheral Anaerobic Blood Culture Pending Received 08/09/17 12:00 Urine Catheterized Urine Urine Culture Pending Received Result Diagram: 08/09/17 1205 08/09/17 1205 Imaging Last Impressions Chest X-Ray 08/09/17 1141 Signed Impressions: Service Date/Time: Wednesday, August 09, 2017 11:51 - CONCLUSION: No acute disease. There is no evidence of pneumonia. Alvaro Best MD Abdomen/Pelvis CT 08/09/17 1141 Signed Impressions: Service Date/Time: Wednesday, August 09, 2017 13:26 - CONCLUSION: 1. Dilation of the extrahepatic biliary system up to 11 mm which is above normal post cholecystectomy. This could represent reservoir phenomenon, but since there is dilation down to the ampulla, distal obstruction cannot be excluded. May consider performing a patent biliary tract scan to evaluate biliary excretory dynamics. 2. No evidence of hydronephrosis. No calcified stones seen. MD Gideon Miller VTE Risk Assessment Caprinaldo VTE Risk Assessment: Mod/High Risk (score >= 2) Caprini Risk Assessment Model Point Value = 1 Point Value = 2 Point Value = 3 Point Value = 5 Age 41-60 Minor surgery BMI > 25 kg/m2 Swollen legs Varicose veins or History of unexplained or recurrent spontaneous Oral contraceptives or hormone replacement Sepsis (< 1 month) Serious lung disease, including pneumonia (< 1 month) Abnormal pulmonary function Acute myocardial infarction Congestive heart failure (< 1 month) History of inflammatory bowel disease Medical patient at bed rest Age 61-74 Arthroscopic surgery Major open surgery (> 45 min) Laparoscopic surgery (> 45 min) Malignancy Confined to bed (> 72 hours) Immobilizing plaster cast Central venous access Age >= 75 History of VTE Family history of VTE Factor V Leiden Prothrombin [id number] Lupus anticoagulant Anticardiolipin antibodies Elevated serum homocysteine Heparin-induced thrombocytopenia Other congenital or acquired thrombophilia Stroke (< 1 month) Elective arthroplasty Hip, pelvis, or leg fracture Acute spinal cord injury (< 1 month) Prophylaxis Regimen Total Risk Factor Score Risk Level Prophylaxis Regimen 0-1 Low Early ambulation 2 Moderate Order ONE of the following: *Sequential Compression Device (SCD) *Heparin 5000 units SQ BID 3-4 Higher Order ONE of the following medications: *Heparin 5000 units SQ TID *Enoxaparin/Lovenox 40 mg SQ daily (WT < 150 kg, CrCl > 30 mL/min) *Enoxaparin/Lovenox 30 mg SQ daily (WT < 150 kg, CrCl > 10-29 mL/min) *Enoxaparin/Lovenox 30 mg SQ BID (WT < 150 kg, CrCl > 30 mL/min) AND/OR *Sequential Compression Device (SCD) 5 or more Highest Order ONE of the following medications: *Heparin 5000 units SQ TID (Preferred with Epidurals) *Enoxaparin/Lovenox 40 mg SQ daily (WT < 150 kg, CrCl > 30 mL/min) *Enoxaparin/Lovenox 30 mg SQ daily (WT < 150 kg, CrCl > 10-29 mL/min) *Enoxaparin/Lovenox 30 mg SQ BID (WT < 150 kg, CrCl > 30 mL/min) AND *Sequential Compression Device (SCD) Assessment and Plan Assessment and Plan 77-year-old female with: UTI: Failed outpatient therapy. Persistently symptomatic. Follows with urology outpatient. - Continue Rocephin. Follow cultures - Obtain kidney and bladder ultrasound. CKD: -Stable - Avoid nephrotoxic agents. GERD - Continue PPI. Abnormal abdominal CT: - Reviewed. No abdominal symptoms to account for biliary dilation. - Monitor clinically. Diabetes On metformin as an outpatient. - Hold metformin. - Insulin sliding scale and diabetic diet. Continue the rest of the patient's home dose medications for chronic conditions. PPx: Heparin Radha Limon MD August 09, 2017 15:40
[2017-08-09] MEDS ORDERED: OMEP20TA93 PO (15:42)
[2017-08-09] MEDS ORDERED: APIX5TAB PO (15:42)
[2017-08-09] MEDS ORDERED: NALOXONE HCL 0.4 MG/ML AMP IV PUSH PRN (15:45)
[2017-08-09] MEDS ORDERED: MAGNESIUM HYDROXIDE SUSP 30 ML CUP PO PRN (15:45)
[2017-08-09] MEDS ORDERED: DEXTROSE 50% IN WATER 50 ML VIAL(D50) IV PUSH PRN (15:45)
[2017-08-09] MEDS ORDERED: ONDANSETRON HCL 4 MG/2 ML VIAL IVP PRN (15:45)
[2017-08-09] MEDS ORDERED: BISACODYL 10 MG SUPP RECTAL PRN (15:45)
[2017-08-09] MEDS ORDERED: LACTULOSE SYRUP 20 GM/30 ML CUP PO PRN (15:45)
[2017-08-09] MEDS ORDERED: SODIUM CHLORIDE 0.9% FLUSH 10 ML FLUSH IV FLUSH PRN (15:45)
[2017-08-09] MEDS ORDERED: SENNOSIDES 8.6 MG TAB PO PRN (15:45)
[2017-08-09] MEDS ORDERED: GLUCAGON 1 MG/ML VIAL OTHER PRN (15:45)
--- NOTE | 2017-08-09 16:21 | RADRPT ---
EXAM DATE/TIME: 08/09/2017 15:43 [place] COMPARISON: CT ABDOMEN & PELVIS W CONTRAST, August 09, 2017, 13:26. US KIDNEY/RENAL/BLADDER, September 19, 2016, 19:56. INDICATIONS : Increased lab values. MEDICAL HISTORY : Stroke. Hypercholesterolemia. Hypertension. Seizures. Dizziness. Head trauma. Anticoagulant therapy. Gastroesophageal reflux disease. Dysuria. Arthritis. Osteoporosis. Diabetes. Anxiety. Depression. Ova nelia cancer. C-Diff. SURGICAL HISTORY : Appendectomy. Cholecystectomy. Hysterectomy. Bilateral cataract surgery. C4-C6 plate placed. Right kn ee reconstruction. Laparoscopic deondre. ENCOUNTER: Initial ACUITY: 1 week PAIN SCORE: 3/10 LOCATION: Bilateral flank MEASUREMENTS: RIGHT KIDNEY: 9.3 x 3.5 x 4.4 cm LEFT KIDNEY: 9.2 x 3.7 x 4.8 cm FINDINGS: RIGHT KIDNEY: Renal cortex is normal in thickness and echotexture. No hydronephrosis, stone, or mass. 1 cm cyst l ower pole parenchyma. LEFT KIDNEY: Renal cortex is normal in thickness and echotexture. No hydronephrosis, stone, or mass. BLADDER: Within normal limits given the degree of distension. CONCLUSION: Negative renal sonogram. Dano Mercer MD on August 09, 2017 at 16:17 Board Certified Radiologist. This report was verified electronically.
[2017-08-09 16:50] VITALS: BP 122/78; PULSE 82; RESP 16; O2SAT 97
[2017-08-09] MEDS: INSULIN ASPART SUPPLEMENTAL SCALE SQ SCH ×2 (17:00→21:26)
[2017-08-09 17:31] VITALS: BP 122/60; PULSE 96; RESP 19; TEMP 98.4; O2SAT 99
[2017-08-09] MEDS: ACETAMINOPHEN 325 MG TAB PO PRN (18:45)
[2017-08-09] MEDS: HEPARIN SODIUM - SQ 10,000 UNITS/ML VIAL SQ SCH (18:45)
[2017-08-09] MEDS: SODIUM CHLORIDE 0.9% FLUSH 10 ML FLUSH IV FLUSH SCH (21:27)
[2017-08-09 21:30] VITALS: BP 107/53; PULSE 90; PULSE 94; RESP 18; TEMP 98.3; O2SAT 99
[2017-08-10] MEDS: ACETAMINOPHEN 325 MG TAB PO PRN ×2 (00:35→17:34)
[2017-08-10] MEDS: HEPARIN SODIUM - SQ 10,000 UNITS/ML VIAL SQ SCH (06:21)
[2017-08-10] MEDS: INSULIN ASPART SUPPLEMENTAL SCALE SQ SCH ×4 (08:00→20:49)
[2017-08-10 08:17] VITALS: BP 135/87; PULSE 99; RESP 18; TEMP 98.2; O2SAT 100
[2017-08-10] MEDS: SODIUM CHLORIDE 0.9% FLUSH 10 ML FLUSH IV FLUSH SCH ×2 (08:25→20:49)
--- NOTE | 2017-08-10 09:13 | HHI.PR ---
Subjective Remarks Follow up for UTI. The patient reports feeling better overnight. Denies any further fevers. Still reporting dysuria however improved compared to yesterday. Denies any abdominal/suprapubic pain, nausea/vomiting, or diarrhea. Denies any other medical complaints at this time. Objective Vitals Vital Signs Date Time Temp Pulse Resp B/P (MAP) Pulse Ox O2 Delivery O2 Flow Rate FiO2 08/10/17 08:17 98.2 99 18 135/87 (103) 100 08/10/17 01:35 15 08/09/17 21:30 98.3 94 18 107/53 (71) 99 08/09/17 17:31 98.4 96 19 122/60 (80) 99 08/09/17 16:57 08/09/17 16:50 82 16 122/78 (93) 97 Room Air 08/09/17 12:00 98.3 92 16 127/76 (93) 100 Room Air 08/09/17 11:41 16 08/09/17 11:36 98.3 90 16 137/80 (99) 100 I/O 08/09/17 08/09/17 08/09/17 08/10/17 08/10/17 08/10/17 07:00 15:00 23:00 07:00 15:00 23:00 Intake Total 1000 ml Output Total 350 ml Balance 1000 ml -350 ml Intake IV Total 1000 ml Output Urine Total 350 ml # Voids 1 1 Result Diagram: 08/09/17 1205 08/09/17 1205 Imaging Last Impressions Chest X-Ray 08/09/17 1141 Signed Impressions: Service Date/Time: Wednesday, August 09, 2017 11:51 - CONCLUSION: No acute disease. There is no evidence of pneumonia. Alvaro Best MD Abdomen/Pelvis CT 08/09/17 1141 Signed Impressions: Service Date/Time: Wednesday, August 09, 2017 13:26 - CONCLUSION: 1. Dilation of the extrahepatic biliary system up to 11 mm which is above normal post cholecystectomy. This could represent reservoir phenomenon, but since there is dilation down to the ampulla, distal obstruction cannot be excluded. May consider performing a patent biliary tract scan to evaluate biliary excretory dynamics. 2. No evidence of hydronephrosis. No calcified stones seen. Dano Mercer MD Renal Ultrasound 08/09/17 0000 Signed Impressions: Service Date/Time: Wednesday, August 09, 2017 15:43 - CONCLUSION: Negative renal sonogram. Dano Mercer MD Objective Remarks GENERAL: Well-nourished, well-developed elderly female patient in [facility]. SKIN: Warm and dry. No rash. HEENT: Normocephalic. Atraumatic. Pupils equal and round. Mucous membranes pink and moist. CARDIOVASCULAR: Regular rate and rhythm. No murmur appreciated. RESPIRATORY: No accessory muscle use. Clear to auscultation. Breath sounds equal bilaterally. GASTROINTESTINAL: Abdomen soft, non-tender, nondistended. Normoactive bowel sounds x4. MUSCULOSKELETAL: No obvious deformities. Extremities without clubbing, cyanosis , or edema. NEUROLOGICAL: Awake and alert. No obvious cranial nerve deficits. Motor grossly within normal limits. Normal speech. PSYCHIATRIC: Appropriate mood and affect; insight and judgment normal. Medications and IVs Current Medications Medications (Trade) Dose Ordered Sig/Georgie Route Start Time Stop Time Status Last Admin (NS Flush) 2 ml UNSCH PRN IVF 08/09/17 11:45 (NS Flush) 2 ml UNSCH PRN IV FLUSH 08/09/17 15:45 (NS Flush) 2 ml BID IV FLUSH 08/09/17 21:00 08/09/17 21:27 (Tylenol) 650 mg Q4H PRN PO 08/09/17 15:45 08/10/17 00:35 (Zofran Inj) 4 mg Q6H PRN IVP 08/09/17 15:45 (Heparin Inj) 5,000 units Q12H SQ 08/09/17 18:00 08/09/17 18:45 (Narcan Inj) 0.4 mg UNSCH PRN IV PUSH 08/09/17 15:45 (Milk Of Magnesia Liq) 30 ml Q12H PRN PO 08/09/17 15:45 (Senokot) 17.2 mg Q12H PRN PO 08/09/17 15:45 (Dulcolax Supp) 10 mg DAILY PRN RECTAL 08/09/17 15:45 (Lactulose Liq) 30 ml DAILY PRN PO 08/09/17 15:45 (D50w (Vial) Inj) 50 ml UNSCH PRN IV PUSH 08/09/17 15:45 (Glucagon Inj) 1 mg UNSCH PRN OTHER 08/09/17 15:45 (NovoLOG SUPPLEMENTAL SCALE) 1 ACHS SLIDING SCALE SQ 08/09/17 17:00 Ceftriaxone Sodium 1000 mg/ Sodium Chloride 100 ml @ 200 mls/hr Q24H IV 08/10/17 07:00 A/P Assessment and Plan 77-year-old female with hx of anemia, OA, anxiety, depression, cervical cancer, DM, HLD. CVA, GERD, esophageal stricture, seizures, presents with fever, dysuria , suprapubic pain. UTI: Failed outpatient therapy. Persistently symptomatic. Follows with urology outpatient. - Continue IV Rocephin. - Follow blood and urine cultures - Renal ultrasound reviewed and unremarkable CKD stage III: chronic, stable - Avoid nephrotoxic agents GERD: chronic - Continue PPI. Abnormal abdominal CT: - Reviewed. No abdominal symptoms to account for biliary dilation, patient tolerating oral intake - Monitor clinically. Diabetes Mellitus, type 2: chornic, on metformin as an outpatient. - Hold metformin. - Insulin sliding scale and diabetic diet. Other chronic medical conditions stable, continue home medications as appropriate. DVT Prophylaxis: Heparin sq Discharge Planning Discharge pending final urine culture and sensitivities. Likely discharge tomorrow. Lisseth Escobar PA-C August 10, 2017 9:13 am
[2017-08-10] MEDS: cefTRIAXone INJ 1,000 MG in SODIUM CHLORIDE 0.9% INJ 100 ML IV SCH (10:49)
[2017-08-10 11:09] LABS: AUTOMATED NEUTROPHIL # 5.1 TH/MM3 (1.8-7.7); BASOPHIL % 0.5 % (0.0-2.0); EOSINOPHIL # 0.1 TH/MM3 (0-0.4); EOSINOPHIL % 1.6 % (0.0-4.0); HEMATOCRIT 30.9 % (35.0-46.0); HEMOGLOBIN 10.3 GM/DL (11.6-15.3); LYMPH % 25.3 % (9.0-44.0); LYMPHOCYTE # 1.9 TH/MM3 (1.0-4.8); MEAN CELL VOLUME 94.1 FL (80.0-100.0); MEAN CORPUSCULAR HEMOGLOBIN 31.4 PG (27.0-34.0); MEAN CORPUSCULAR HGB CONC 33.3 % (32.0-36.0); MEAN PLATELET VOLUME 7.2 FL (7.0-11.0); MONO % 6.4 % (0.0-8.0); MONOCYTE # 0.5 TH/MM3 (0-0.9); NEUT % 66.2 % (16.0-70.0); PLATELET COUNT 480 TH/MM3 (150-450); RED BLOOD COUNT 3.28 MIL/MM3 (4.00-5.30); RED CELL DISTRIBUTION WIDTH 15.4 % (11.6-17.2); WHITE BLOOD COUNT 7.7 TH/MM3 (4.0-11.0)
[2017-08-10 11:35] LABS: BICARBONATE 20.3 MEQ/L (21.0-32.0); CALCIUM 9.2 MG/DL (8.5-10.1); CREATININE 1.24 MG/DL (0.50-1.00)
[2017-08-10] MEDS ORDERED: BACLOFEN 10 MG TAB PO PRN (13:15)
[2017-08-10] MEDS ORDERED: ALBUTEROL SULFATE 90 MCG/ACT HFA 8 GM INHALER INH PRN (13:15)
[2017-08-10 13:17] VITALS: BP 135/60; PULSE 100; RESP 18; TEMP 98.6; O2SAT 100
[2017-08-10] MEDS: traMADol HCL 50 MG TAB PO PRN (14:56)
[2017-08-10] MEDS: PANTOPRAZOLE SOD 20 MG DELAYED RELEASE TAB PO SCH (14:56)
[2017-08-10 17:02] VITALS: BP 143/66; PULSE 107; RESP 18; TEMP 98.7; O2SAT 99
[2017-08-10] MEDS: METOPROLOL SUCCINATE 50 MG EXTENDED RELEASE TAB PO SCH (20:48)
[2017-08-10] MEDS: APIXABAN 5 MG TABLET PO SCH (20:49)
[2017-08-10] MEDS: LACOSAMIDE 100 MG TAB PO SCH (20:49)
[2017-08-10] MEDS ORDERED: PRAVASTATIN SOD 40 MG TAB PO SCH (21:00)
[2017-08-10 21:08] VITALS: BP 145/65; PULSE 96; RESP 16; TEMP 98.6; O2SAT 100
[2017-08-11 00:02] VITALS: BP 125/60; PULSE 78; RESP 16; TEMP 98.7; O2SAT 100
[2017-08-11] MEDS: ACETAMINOPHEN 325 MG TAB PO PRN (00:55)
[2017-08-11] MEDS: traMADol HCL 50 MG TAB PO PRN (04:01)
[2017-08-11 04:22] VITALS: BP 111/62; PULSE 75; RESP 16; TEMP 98; O2SAT 96
[2017-08-11 07:49] VITALS: BP 123/65; PULSE 76; RESP 16; TEMP 98; O2SAT 96
[2017-08-11] MEDS: INSULIN ASPART SUPPLEMENTAL SCALE SQ SCH (08:00)
[2017-08-11] MEDS ORDERED: CEFU1TAB20 PO (08:02)
--- NOTE | 2017-08-11 08:03 | HHI.DCPOC ---
Discharge Care Plan Diagnosis: (1) UTI (urinary tract infection) Goals to Promote Your Health * To prevent worsening of your condition and complications * To maintain your health at the optimal level Directions to Meet Your Goals Take your medications as prescribed Follow your dietary instruction Follow activity as directed Keep your appointments as scheduled Take your immunizations and boosters as scheduled If your symptoms worsen call your PCP, if no PCP go to Urgent Care Center or Emergency Room Smoking is Dangerous to Your Health. Avoid second hand smoke Call the 24-hour hour crisis hotline for domestic abuse at Lisseth Escobar PA-C August 11, 2017 8:03 am
--- NOTE | 2017-08-11 08:04 | HHI.FF ---
Face to Face Verification Diagnosis: (1) Generalized weakness (2) UTI (urinary tract infection) (3) HTN (hypertension) (4) ANNA (acute kidney injury) Physical Therapy Order: Evaluate and Treat, Improve ambulation, Strength and gait training Home Health Nursing Order: Medical education Signs/symptoms of disease process Nursing assessment with vital signs I have seen patient Saskia Darden on 08/11/17. My clinical findings support the need for the requested home health care services because: Ltd mobility - disease progression Deconditioned w/ increased weakness Med compliance is questionable Limited ability to care for self Infection w/ risk of complications I certify that my clinical findings support that this patient is homebound because: Unsteady gait/balance Unsafe to leave home unassisted Unable to use public transportation Lisseth Escobar PA-C August 11, 2017 8:04 am
[2017-08-11] MEDS: PANTOPRAZOLE SOD 20 MG DELAYED RELEASE TAB PO SCH (08:21)
[2017-08-11] MEDS: cefTRIAXone INJ 1,000 MG in SODIUM CHLORIDE 0.9% INJ 100 ML IV SCH (08:21)
[2017-08-11] MEDS: APIXABAN 5 MG TABLET PO SCH (08:21)
[2017-08-11] MEDS: SODIUM CHLORIDE 0.9% FLUSH 10 ML FLUSH IV FLUSH SCH (08:21)
[2017-08-11] MEDS: LACOSAMIDE 100 MG TAB PO SCH (08:21)
[2017-08-11] MEDS: METOPROLOL SUCCINATE 50 MG EXTENDED RELEASE TAB PO SCH (08:21)
--- NOTE | 2017-08-11 09:01 | HHI.PR ---
Subjective Remarks Follow-up for UTI, failed outpatient treatment. The patient reports she continues to feel better again today. She denies any abdominal pain, nausea/ vomiting, or diarrhea. She states her dysuria has improved. Denies fevers or chills. She wants to go home. She has no other medical complaints at this time. She does already have home health care arranged. Objective Vitals Vital Signs Date Time Temp Pulse Resp B/P (MAP) Pulse Ox O2 Delivery O2 Flow Rate FiO2 08/11/17 07:49 98.0 76 16 123/65 (84) 96 08/11/17 05:05 14 08/11/17 04:22 98.0 75 16 111/62 (78) 96 08/11/17 01:55 14 08/11/17 00:02 98.7 78 16 125/60 (81) 100 08/10/17 21:08 98.6 96 16 145/65 (91) 100 08/10/17 17:02 98.7 107 18 143/66 (91) 99 08/10/17 13:17 98.6 100 18 135/60 (85) 100 I/O 08/10/17 08/10/17 08/10/17 08/11/17 08/11/17 08/11/17 07:00 15:00 23:00 07:00 15:00 23:00 Intake Total 100 ml Output Total 350 ml 1000 ml Balance -350 ml 100 ml -1000 ml Intake IV Total 100 ml Output Urine Total 350 ml 1000 ml # Bowel Movements 1 Result Diagram: 08/10/17 1026 08/10/17 1026 Imaging Last Impressions Chest X-Ray 08/09/17 1141 Signed Impressions: Service Date/Time: Wednesday, August 09, 2017 11:51 - CONCLUSION: No acute disease. There is no evidence of pneumonia. Alvaro Best MD Abdomen/Pelvis CT 08/09/17 1141 Signed Impressions: Service Date/Time: Wednesday, August 09, 2017 13:26 - CONCLUSION: 1. Dilation of the extrahepatic biliary system up to 11 mm which is above normal post cholecystectomy. This could represent reservoir phenomenon, but since there is dilation down to the ampulla, distal obstruction cannot be excluded. May consider performing a patent biliary tract scan to evaluate biliary excretory dynamics. 2. No evidence of hydronephrosis. No calcified stones seen. Dano Mercer MD Renal Ultrasound 08/09/17 0000 Signed Impressions: Service Date/Time: Wednesday, August 09, 2017 15:43 - CONCLUSION: Negative renal sonogram. Dano Mercer MD Objective Remarks GENERAL: Well-nourished, well-developed elderly female patient in [facility]. SKIN: Warm and dry. No rash. Anterior neck with bandage covering old tracheostomy site that is healing. HEENT: Normocephalic. Atraumatic. Pupils equal and round. Mucous membranes pink and moist. CARDIOVASCULAR: Regular rate and rhythm. No murmur appreciated. RESPIRATORY: No accessory muscle use. Clear to auscultation. Breath sounds equal bilaterally. GASTROINTESTINAL: Abdomen soft, non-tender, nondistended. Normoactive bowel sounds x4. Left mid abdomen with healing old PEG tube site. MUSCULOSKELETAL: No obvious deformities. Extremities without clubbing, cyanosis , or edema. NEUROLOGICAL: Awake and alert. No obvious cranial nerve deficits. Motor grossly within normal limits. Normal speech. PSYCHIATRIC: Appropriate mood and affect; insight and judgment normal. Procedures None Medications and IVs Current Medications Medications (Trade) Dose Ordered Sig/Georgie Route Start Time Stop Time Status Last Admin (NS Flush) 2 ml UNSCH PRN IVF 08/09/17 11:45 (NS Flush) 2 ml UNSCH PRN IV FLUSH 08/09/17 15:45 (NS Flush) 2 ml BID IV FLUSH 08/09/17 21:00 08/11/17 08:21 (Tylenol) 650 mg Q4H PRN PO 08/09/17 15:45 08/11/17 00:55 (Zofran Inj) 4 mg Q6H PRN IVP 08/09/17 15:45 (Narcan Inj) 0.4 mg UNSCH PRN IV PUSH 08/09/17 15:45 (Milk Of Magnesia Liq) 30 ml Q12H PRN PO 08/09/17 15:45 (Senokot) 17.2 mg Q12H PRN PO 08/09/17 15:45 (Dulcolax Supp) 10 mg DAILY PRN RECTAL 08/09/17 15:45 (Lactulose Liq) 30 ml DAILY PRN PO 08/09/17 15:45 (D50w (Vial) Inj) 50 ml UNSCH PRN IV PUSH 08/09/17 15:45 (Glucagon Inj) 1 mg UNSCH PRN OTHER 08/09/17 15:45 (NovoLOG SUPPLEMENTAL SCALE) 1 ACHS SLIDING SCALE SQ 08/09/17 17:00 Ceftriaxone Sodium 1000 mg/ Sodium Chloride 100 ml @ 200 mls/hr Q24H IV 08/10/17 07:00 08/11/17 08:21 (Proair Hfa Inh) 2 puff Q6H PRN INH 08/10/17 13:15 (Eliquis) 5 mg BID PO 08/10/17 21:00 08/11/17 08:21 (Lioresal) 10 mg TID PRN PO 08/10/17 13:15 (Vimpat) 100 mg BID PO 08/10/17 21:00 08/11/17 08:21 (Toprol Xl) 50 mg BID PO 08/10/17 21:00 08/11/17 08:21 (Pravachol) 40 mg HS PO 08/10/17 21:00 08/10/17 20:48 (Ultram) 50 mg Q4H PRN PO 08/10/17 13:15 08/11/17 04:01 (Protonix) 20 mg DAILY PO 08/10/17 13:15 08/11/17 08:21 A/P Assessment and Plan 77-year-old female with hx of anemia, OA, anxiety, depression, cervical cancer, DM, HLD. CVA, GERD, esophageal stricture, seizures, presents with fever, dysuria , suprapubic pain. UTI: Failed outpatient therapy. Persistently symptomatic. Follows with urology outpatient. - Continue IV Rocephin. - Blood cultures with no growth 2 days - Urine culture with 1050 K mixed gram-positive mono, likely contaminants - Renal ultrasound reviewed and unremarkable - Given patient's symptoms, will discharge on cefuroxime 5 days to complete total 7 day course antibiotics CKD stage III: chronic, stable - Avoid nephrotoxic agents GERD: chronic - Continue PPI. Abnormal abdominal CT: - Reviewed. No abdominal symptoms to account for biliary dilation - Monitor clinically, asymptomatic throughout admission, tolerating oral intake Diabetes Mellitus, type 2: chornic, on metformin as an outpatient. - Hold metformin. - Insulin sliding scale and diabetic diet. - Blood glucose stable throughout admission Other chronic medical conditions stable, continue home medications as appropriate. DVT Prophylaxis: Heparin sq Discharge Planning Discharge patient to home with home health care Condition on discharge: Stable Heart healthy diet as tolerated Ad Chelsie activity Rx written: Cefuroxime 500 mg bid x5days (total 7 day treatment course) Follow-up with primary care physician within 1 week Lisseth Escobar PA-C August 11, 2017 9:01 am
== END 2017-08-11 14:20 | disposition home or self-care (01) ==
LOC: NEPC 11:27 → NEDA 14:38 → NEPGCP 17:22
PROVIDERS: ADMIT Hospitalist; ATTEND Hospitalist
DX: N30.00 Acute cystitis without hematuria (principal); I13.0 Hypertensive heart and chronic kidney disease with heart failure and stage 1 through stage 4 chronic kidney disease, or unspecified chronic kidney disease; I50.9 Heart failure, unspecified; E11.22 Type 2 diabetes mellitus with diabetic chronic kidney disease; N18.3 Chronic kidney disease, stage 3 (moderate); E78.5 Hyperlipidemia, unspecified; J44.9 Chronic obstructive pulmonary disease, unspecified; G40.909 Epilepsy, unspecified, not intractable, without status epilepticus; K21.9 Gastro-esophageal reflux disease without esophagitis; F41.9 Anxiety disorder, unspecified; F32.9 Major depressive disorder, single episode, unspecified; Z85.41 Personal history of malignant neoplasm of cervix uteri; Z79.899 Other long term (current) drug therapy; Z79.84 Long term (current) use of oral hypoglycemic drugs; Z85.43 Personal history of malignant neoplasm of ovary; Z86.73 Personal history of transient ischemic attack (TIA), and cerebral infarction without residual deficits; Z86.12 Personal history of poliomyelitis
CPT/HCPCS: 71045; 74177; 76775; 76937; 80048; 80053; 81001; 82948; 83605; 83690; 85025; 85610; 85730; 87040; 87086; 96361; 96365; 96366; 96372; 97162; 99285; G0378; G8987; G8988; J0696; J1644; J7030; Q9967

== ENCOUNTER 2017-11-26 11:44 | Inpatient (IN) ==
--- NOTE | 2017-11-26 12:25 | ED ---
HPI General Chief complaint: Altered Mental Status Stated complaint: Medical Time Seen by Provider: 11/26/17 12:21 Source: RN notes reviewed and old records reviewed Mode of arrival: other (Nonemergency transport) Limitations: altered mental status History of Present Illness HPI narrative: Apparently the patient [facility], which she has been noted to be more more somnolent, and therefore was sent to the emergency department for further evaluation. Onset (ago): unknown Radiation: non-radiation Severity: moderate Quality: other Pain Consistency: other Relieving factors: none Exacerbating factors: none Associated symptoms: denies other symptoms Treatments prior to arrival: none Related Data Home Medications Medication Instructions Recorded Confirmed albuterol sulfate [ProAir HFA] 2 puff INHALATION Q6H PRN 11/26/17 11/26/17 baclofen 10 mg PO TID 11/26/17 11/26/17 cyanocobalamin (vitamin B-12) 250 mcg PO DAILY 11/26/17 11/26/17 folic acid 1 mg PO DAILY 11/26/17 11/26/17 lacosamide [Vimpat] 100 mg PO BID 11/26/17 11/26/17 metformin 1,000 mg PO BID 11/26/17 11/26/17 multivitamin 1 tab PO DAILY 11/26/17 11/26/17 omeprazole 20 mg PO DAILY 11/26/17 11/26/17 pravastatin 40 mg PO DAILY 11/26/17 11/26/17 pregabalin [Lyrica] 50 mg PO TID 11/26/17 11/26/17 sertraline [Zoloft] 50 mg PO DAILY 11/26/17 11/26/17 sucralfate 1 g PO QID 11/26/17 11/26/17 tiotropium bromide [Spiriva 2 puff INHALATION DAILY 11/26/17 11/26/17 Respimat] Allergies Allergy/AdvReac Type Severity Reaction Status Date / Time egg Allergy Intermediate Hives Verified 11/26/17 12:11 Influenza Virus Vaccines Allergy Intermediate Hives Verified 11/26/17 12:11 codeine Allergy Mild Hives Verified 11/26/17 12:11 meperidine Allergy Mild Hives Verified 11/26/17 12:11 morphine Allergy Mild Hives Verified 11/26/17 12:11 acetaminophen AdvReac Mild Gastrointestinal Verified 11/26/17 12:11 Upset hydrocodone AdvReac Mild Gastrointestinal Verified 11/26/17 12:11 Upset Review of Systems ROS: all other systems reviewed are negative PMFSH History History Provided By: Patient Medical History Medical History Altered mental status (Acute) Anxiety (Acute) Depressive disorder (Acute) Diabetes (Acute) Difficulty in walking (Acute) Dysphagia (Acute) GERD (gastroesophageal reflux disease) (Acute) Genital candidiasis (Acute) HBP (high blood pressure) (Acute) History of fall (Acute) Hyperlipidemia (Acute) Surgical History Surgical History Hx of cholecystectomy (Acute) Social History Social History Smoking Status: Former smoker Tobacco Type: Cigarettes How Often Do You Have a Drink Containing Alcohol: Never Recent Travel in [facility] within the Last 8 Weeks: No Recent Out of Country Travel within the Last 8 Weeks: No Immunization History Tetanus Immunization: >5 Years Hx Influenza Vaccine This Season: Yes Exam Narrative Exam Narrative: GENERAL: Thin, elderly, female with generalized weakness. SKIN: Warm and dry. HEAD: Atraumatic. Normocephalic. EYES: Pupils equal and round. No scleral icterus. No injection or drainage. ENT: No nasal bleeding or discharge. Dry oral mucosa NECK: Trachea midline. No JVD. CARDIOVASCULAR: Regular rate and rhythm. no rubs or gallops RESPIRATORY: No accessory muscle use. Clear to auscultation. Breath sounds equal bilaterally. GASTROINTESTINAL: Abdomen soft, non-tender, nondistended. No rebound or guarding MUSCULOSKELETAL: Extremities without clubbing, cyanosis, or edema. No obvious deformities. NEUROLOGICAL: Awake, a/o x name, place, but not year/president, follows commands well. No obvious cranial nerve deficits. 2 out of 5 muscle strength in the arms and legs. Normal speech. PSYCHIATRIC: Appropriate mood and affect; insight and judgment normal. Course Initial Documented Vital Signs Temperature 97.8 F 11/26/17 12:12 Pulse Rate 86 11/26/17 12:12 Respiratory Rate 18 11/26/17 12:12 Blood Pressure 136/88 11/26/17 12:12 Pulse Oximetry 97 11/26/17 12:12 Last Documented Vital Signs Temperature 97.9 F 11/26/17 14:29 Pulse Rate 89 11/26/17 14:29 Respiratory Rate 17 11/26/17 14:29 Blood Pressure 102/68 11/26/17 14:29 Pulse Oximetry 98 11/26/17 14:29 Medical Decision Making MDM Narrative Medical decision making narrative: CBC reveals no leukocytosis, no left shift, however the patient does have some anemia of 9.4/28.6 and thrombocytosis of 505, 000 Coagulation profile is within normal limits Ammonia level was less than 10 which is within normal limits Troponin was borderline 0.03 although was in the normal range, normally is less than 0.02. TSH screening test is within normal limits Electrolytes are all within normal limits with the exception of creatinine elevation of 3.5 in the past the patient has had some mild renal insufficiency that has progressively worsened, her initial April 2017 creatinine was 0.83 and then around August it increased to 1.24 and now the highest at 3.5 Medical Screen Exam Complete: Yes Emergency Medical Condition: Yes Differential Diagnosis Differential Diagnosis: Anemia versus dehydration versus UTI versus pneumonia versus intracranial hemorrhage versus electrolyte imbalance Medical Records Medical records reviewed: Yes I reviewed the patient's medical records. Lab Data Lab results reviewed: Yes I reviewed the patient's lab results. Result diagrams: 11/26/17 12:30 11/26/17 12:30 Lab Results 11/26/17 11/26/17 11/26/17 Range/Units 12:09 12:30 12:30 WBC 10.4 (4.0-11.0) th/mm3 RBC 3.04 L (4.00-5.30) mil/mm3 Hgb 9.4 L (11.6-15.3) gm/dL Hct 28.6 L (35.0-46.0) % MCV 94.1 (80.0-100.0) fL MCH 31.0 (27.0-34.0) pg MCHC 33.0 (32.0-36.0) % RDW 15.7 (11.6-17.2) % Plt Count 505 H (150-450) th/mm3 MPV 7.5 (7.0-11.0) fL Neut % (Auto) 77.8 H (16.0-70.0) % Lymph % (Auto) 14.0 (9.0-44.0) % [place] % (Auto) 4.7 (0.0-8.0) % Eos % (Auto) 3.0 (0.0-4.0) % Baso % (Auto) 0.5 (0.0-2.0) % Neut # (Auto) 8.1 H (1.8-7.7) th/mm3 Lymph # (Auto) 1.5 (1.0-4.8) th/mm3 Addison # (Auto) 0.5 (0.0-0.9) th/mm3 Eos # (Auto) 0.3 (0.0-0.4) th/mm3 Baso # (Auto) 0.1 (0.0-0.2) th/mm3 WBC Differential . Differential Comment Auto diff final PT 9.9 (9.8-11.6) sec INR 1.0 Ratio APTT 24.7 (24.3-30.1) sec Sodium (136-145) meq/L Potassium (3.5-5.1) meq/L Chloride (98-107) meq/L Carbon Dioxide (21.0-32.0) meq/L Anion Gap (5-15) meq/L BUN (7-18) mg/dL Creatinine (0.50-1.00) mg/dL Estimated GFR (>89) mL/min POC Glucose 114 H (68-110) mg/dl Random Glucose (74-106) mg/dL Calcium (8.5-10.1) mg/dL Total Bilirubin (0.2-1.0) mg/dL AST (15-37) U/L ALT (10-53) U/L Alkaline Phosphatase (45-117) U/L Ammonia (11-32) mcmol/L Troponin I (0.02-0.05) ng/mL Total Protein (6.4-8.2) g/dL Albumin (3.4-5.0) g/dL TSH (0.358-3.740) uIU/mL Urine Color (Yellw/Straw) Urine Clarity (Clear) Urine pH (5.0-8.5) Ur Specific [place] (1.002-1.035) Urine Protein (Neg-Trace) mg/dL Urine Glucose (UA) (Negative) mg/dL Urine Ketones (Negative) mg/dL Urine Occult Blood (Negative) Urine Nitrate (Negative) Urine Bilirubin (Negative) Urine Urobilinogen (Less than 2) mg/dL Ur Leukocyte Esterase (Negative) Urine RBC (0-3) /hpf Urine WBC (0-5) /hpf Urine WBC Clumps (None) Ur Squamous Epith Cells (0-5) /hpf Urine Bacteria (None) /hpf Micro UA Comment Urine Culture Comments Urine Opiates Screen (Neg) Ur Barbiturates Screen (Neg) Ur Amphetamines Screen (Neg) U Benzodiazepines Scrn (Neg) Urine Cocaine Screen (Neg) U Cannabinoids Screen (Neg) 11/26/17 11/26/17 11/26/17 Range/Units 12:30 12:30 12:30 WBC (4.0-11.0) th/mm3 RBC (4.00-5.30) mil/mm3 Hgb (11.6-15.3) gm/dL Hct (35.0-46.0) % MCV (80.0-100.0) fL MCH (27.0-34.0) pg MCHC (32.0-36.0) % RDW (11.6-17.2) % Plt Count (150-450) th/mm3 MPV (7.0-11.0) fL Neut % (Auto) (16.0-70.0) % Lymph % (Auto) (9.0-44.0) % [place]ison % (Auto) (0.0-8.0) % Eos % (Auto) (0.0-4.0) % Baso % (Auto) (0.0-2.0) % Neut # (Auto) (1.8-7.7) th/mm3 Lymph # (Auto) (1.0-4.8) th/mm3 [place]ison # (Auto) (0.0-0.9) th/mm3 Eos # (Auto) (0.0-0.4) th/mm3 Baso # (Auto) (0.0-0.2) th/mm3 WBC Differential Differential Comment PT (9.8-11.6) sec INR Ratio APTT (24.3-30.1) sec Sodium 143 (136-145) meq/L Potassium 5.5 H (3.5-5.1) meq/L Chloride 111 H (98-107) meq/L Carbon Dioxide 25.2 (21.0-32.0) meq/L Anion Gap 7 (5-15) meq/L BUN 44 H (7-18) mg/dL Creatinine 3.52 H (0.50-1.00) mg/dL Estimated GFR 13 L (>89) mL/min POC Glucose (68-110) mg/dl Random Glucose 102 (74-106) mg/dL Calcium 8.8 (8.5-10.1) mg/dL Total Bilirubin 0.2 (0.2-1.0) mg/dL AST 16 (15-37) U/L ALT 17 (10-53) U/L Alkaline Phosphatase 75 (45-117) U/L Ammonia (11-32) mcmol/L Troponin I 0.03 (0.02-0.05) ng/mL Total Protein 7.5 (6.4-8.2) g/dL Albumin 3.3 L (3.4-5.0) g/dL TSH 0.920 (0.358-3.740) uIU/mL Urine Color Yellow (Yellw/Straw) Urine Clarity Turbid H (Clear) Urine pH 5.0 (5.0-8.5) Ur Specific [place] 1.008 (1.002-1.035) Urine Protein 100 H (Neg-Trace) mg/dL Urine Glucose (UA) Negative (Negative) mg/dL Urine Ketones Negative (Negative) mg/dL Urine Occult Blood Moderate H (Negative) Urine Nitrate Negative (Negative) Urine Bilirubin Negative (Negative) Urine Urobilinogen Less than 2 (Less than 2) mg/dL Ur Leukocyte Esterase Large H (Negative) Urine RBC 20 H (0-3) /hpf Urine WBC (0-5) /hpf Urine WBC Clumps Many H (None) Ur Squamous Epith Cells 4 (0-5) /hpf Urine Bacteria Many H (None) /hpf Micro UA Comment Cath-culture ind Urine Culture Comments Cath-cult indicated Urine Opiates Screen Neg (Neg) Ur Barbiturates Screen Neg (Neg) Ur Amphetamines Screen Neg (Neg) U Benzodiazepines Scrn Pos H (Neg) Urine Cocaine Screen Neg (Neg) U Cannabinoids Screen Neg (Neg) 11/26/17 Range/Units 12:40 WBC (4.0-11.0) th/mm3 RBC (4.00-5.30) mil/mm3 Hgb (11.6-15.3) gm/dL Hct (35.0-46.0) % MCV (80.0-100.0) fL MCH (27.0-34.0) pg MCHC (32.0-36.0) % RDW (11.6-17.2) % Plt Count (150-450) th/mm3 MPV (7.0-11.0) fL Neut % (Auto) (16.0-70.0) % Lymph % (Auto) (9.0-44.0) % [place] % (Auto) (0.0-8.0) % Eos % (Auto) (0.0-4.0) % Baso % (Auto) (0.0-2.0) % Neut # (Auto) (1.8-7.7) th/mm3 Lymph # (Auto) (1.0-4.8) th/mm3 [place] # (Auto) (0.0-0.9) th/mm3 Eos # (Auto) (0.0-0.4) th/mm3 Baso # (Auto) (0.0-0.2) th/mm3 WBC Differential Differential Comment PT (9.8-11.6) sec INR Ratio APTT (24.3-30.1) sec Sodium (136-145) meq/L Potassium (3.5-5.1) meq/L Chloride (98-107) meq/L Carbon Dioxide (21.0-32.0) meq/L Anion Gap (5-15) meq/L BUN (7-18) mg/dL Creatinine (0.50-1.00) mg/dL Estimated GFR (>89) mL/min POC Glucose (68-110) mg/dl Random Glucose (74-106) mg/dL Calcium (8.5-10.1) mg/dL Total Bilirubin (0.2-1.0) mg/dL AST (15-37) U/L ALT (10-53) U/L Alkaline Phosphatase (45-117) U/L Ammonia Less than 10 L (11-32) mcmol/L Troponin I (0.02-0.05) ng/mL Total Protein (6.4-8.2) g/dL Albumin (3.4-5.0) g/dL TSH (0.358-3.740) uIU/mL Urine Color (Yellw/Straw) Urine Clarity (Clear) Urine pH (5.0-8.5) Ur Specific [place] (1.002-1.035) Urine Protein (Neg-Trace) mg/dL Urine Glucose (UA) (Negative) mg/dL Urine Ketones (Negative) mg/dL Urine Occult Blood (Negative) Urine Nitrate (Negative) Urine Bilirubin (Negative) Urine Urobilinogen (Less than 2) mg/dL Ur Leukocyte Esterase (Negative) Urine RBC (0-3) /hpf Urine WBC (0-5) /hpf Urine WBC Clumps (None) Ur Squamous Epith Cells (0-5) /hpf Urine Bacteria (None) /hpf Micro UA Comment Urine Culture Comments Urine Opiates Screen (Neg) Ur Barbiturates Screen (Neg) Ur Amphetamines Screen (Neg) U Benzodiazepines Scrn (Neg) Urine Cocaine Screen (Neg) U Cannabinoids Screen (Neg) Imaging Data My impression: Images and reports reviewed Radiologist's impression: Chest X-Ray 11/26/17 12:21 CONCLUSION: 1. No acute abnormality or significant interval change. Head CT 11/26/17 12:21 CONCLUSION: 1. Stable senescent changes. 2. No acute intracranial abnormality. . ECG Data EKG Prior to Arrival: No Attestation: I personally reviewed and interpreted this ECG as follows: Prior ECG tracings: not available for review Interpretation: Normal sinus rhythm, 86 bpm, normal intervals, normal axis, no evidence of any ST elevation PR pattern. J-point elevation consistent with benign early repolarization. Discharge Plan Discharge Disposition Patient Disposition: 30 Still Patient Discharge Condition Condition: Stable Discharge Details Diagnosis: Dehydration, Acute UTI, Acute prerenal azotemia Physicians Team ED Provider: Jaxon Robertson Primary Care Provider: Chalo Garcia Rxs /Orders / Referrals /Forms Prescriptions: No Action multivitamin Tablet 1 tab PO DAILY RF: 0 pravastatin 40 mg Tablet 40 mg PO DAILY RF: 0 sucralfate 1 gram Tablet 1 g PO QID RF: 0 cyanocobalamin (vitamin B-12) 250 mcg Tablet 250 mcg PO DAILY RF: 0 baclofen 10 mg Tablet 10 mg PO TID RF: 0 metformin 1,000 mg Tablet 1,000 mg PO BID RF: 0 omeprazole 20 mg Capsule,Delayed Release(Dr/Ec) 20 mg PO DAILY RF: 0 folic acid 1 mg Tablet 1 mg PO DAILY RF: 0 albuterol sulfate [ProAir HFA] 90 mcg/actuation Hfa Aerosol Inhaler 2 puff INHALATION Q6H PRN (Reason: Respiratory Distress) RF: 0 sertraline [Zoloft] 50 mg Tablet 50 mg PO DAILY RF: 0 pregabalin [Lyrica] 50 mg Capsule 50 mg PO TID RF: 0 lacosamide [Vimpat] 100 mg Tablet 100 mg PO BID RF: 0 tiotropium bromide [Spiriva Respimat] 2.5 mcg/actuation Mist 2 puff INHALATION DAILY RF: 0 Status ED Status: With Doctor
[2017-11-26] MEDS ORDERED: Sod Chloride 0.9% Inj 1,000 ML IV.CONT SCH (12:30)
--- NOTE | 2017-11-26 13:00 | XR ---
EXAM DATE: 11/26/2017 12:56 PM EDT AGE/SEX: 77 years / Female INDICATIONS: Shortness of breath. CLINICAL DATA: This is the patient's initial encounter. Patient reports that signs and symptoms have been present for 1 day and indicates a pain score of 7/10. MEDICAL/SURGICAL HISTORY: Non-responsive. UTI . Neck surgery. COMPAR[place]: [facility] [place]. . FINDINGS: No new focal pleural or parenchymal opacities. The cardiomediastinal contours are unremarkable. Parti ally imaged inferior cervical fixation hardware. Osseous structures are intact. CONCLUSION: 1. No acute abnormality or significant interval change. Electronically signed by: Harris Gamboa MD 11/26/2017 12:58 PM EDT
[2017-11-26 13:05] LABS: Baso # (Auto) 0.1 th/mm3 (0.0-0.2); Baso % (Auto) 0.5 % (0.0-2.0); Eos # (Auto) 0.3 th/mm3 (0.0-0.4); Hematocrit 28.6 % (35.0-46.0); Hemoglobin 9.4 gm/dL (11.6-15.3); Lymph # (Auto) 1.5 th/mm3 (1.0-4.8); Mean Corpuscular Volume 94.1 fL (80.0-100.0); Mean Platelet Volume 7.5 fL (7.0-11.0); Mono # (Auto) 0.5 th/mm3 (0.0-0.9); Mono % (Auto) 4.7 % (0.0-8.0); Neut # (Auto) 8.1 th/mm3 (1.8-7.7); Neut % (Auto) 77.8 % (16.0-70.0); Platelet Count 505 th/mm3 (150-450); Red Blood Count 3.04 mil/mm3 (4.00-5.30); Red Cell Distribution Width 15.7 % (11.6-17.2); White Blood Count 10.4 th/mm3 (4.0-11.0)
[2017-11-26 13:15] LABS: Activated Partial Thrombo Time 24.7 sec (24.3-30.1); Prothrombin Time 9.9 sec (9.8-11.6)
[2017-11-26 13:22] LABS: Alanine Aminotransferase 17 U/L (10-53); Albumin 3.3 g/dL (3.4-5.0); Anion Gap 7 meq/L (5-15); Aspartate Aminotransferase 16 U/L (15-37); Bacteria,Urine Many /hpf; Bilirubin,Urine Negative (Negative); Blood Urea Nitrogen 44 mg/dL (7-18); Calcium 8.8 mg/dL (8.5-10.1); Carbon Dioxide 25.2 meq/L (21.0-32.0); Chloride 111 meq/L (98-107); Clarity,Urine Turbid (Clear); Color,Urine Yellow (Yellw/Straw); Glomerular Filtration Rate 13 mL/min (>89); Glucose,Random 102 mg/dL (74-106); Glucose,Urine (UA) Negative (Negative); Leukocyte Esterase,Urine Large (Negative); Nitrite,Urine Negative (Negative); Potassium 5.5 meq/L (3.5-5.1); Sodium 143 meq/L (136-145); Specific Gravity,Urine 1.008 (1.002-1.035); Squamous Epithelial Cell,Urine 4 /hpf (0-5)
[2017-11-26 13:32] LABS: Alkaline Phosphatase 75 U/L (45-117); Total Protein 7.5 g/dL (6.4-8.2); Troponin I 0.03 ng/mL (0.02-0.05)
--- NOTE | 2017-11-26 13:42 | CT ---
EXAM DATE: 11/26/2017 1:39 PM EDT AGE/SEX: 77 years / Female INDICATIONS: Altered mental status. CLINICAL DATA: This is the patient's initial encounter. Patient reports that signs and symptoms have been present for 1 day and indicates a pain score of 4/10. MEDICAL/SURGICAL HISTORY: Diabetes. Hypertension. Cholecystectomy. RADIATION DOSE: 35.07 CTDI (mGy) [place] [facility] [place]/07/[place]. . TECHNIQUE: CT of the head without contrast. Using automated exposure control and adjustment of the mA and/or kV according to patient size, radiation dose was kept as low as reasonably achievable to ob tain optimal diagnostic quality images. DICOM format image data is available electronically for revi ew and comparison. FINDINGS: Cerebrum: Moderate diffuse cerebral atrophy. The ventricles are normal for degree of atrophy. Mild p eriventricular white matter hypodensities. No evidence of midline shift, mass lesion, hemorrhage or a cute infarction. No extraaxial fluid collections are seen. Posterior Fossa: The cerebellum and brainstem are intact. The 4th ventricle is midline. The cerebe llopontine angle is unremarkable. Extracranial: The visualized portion of the orbits is intact. Skull: The calvaria is intact. No evidence of skull fracture. CONCLUSION: 1. Stable senescent changes. 2. No acute intracranial abnormality. . Electronically signed by: Harris Gamboa MD 11/26/2017 1:40 PM EDT
[2017-11-26 13:46] LABS: Amphetamine Screen,Urine Neg (Neg); Barbiturate Screen,Urine Neg (Neg); Cannabinoid Screen,Urine Neg (Neg); Cocaine Screen,Urine Neg (Neg); Opiate Screen,Urine Neg (Neg)
[2017-11-26] MEDS ORDERED: Sod Chloride 0.9% Inj 1,000 ML IV.SIG ONE (14:13)
[2017-11-26] MEDS ORDERED: Dextrose 50% in Water 50 ML Vial IV.PUSH PRN (15:15)
[2017-11-26] MEDS: Sod Chloride 0.9% Inj 1,000 ML IV.CONT SCH (15:41)
[2017-11-26] MEDS: Insulin NovoLOG Aspart Correctional Sugar Inj SQ SCH ×2 (17:08→20:32)
[2017-11-26] MEDS: Pregabalin 25 MG Capsule PO SCH (17:09)
[2017-11-26] MEDS: Baclofen 10 MG Tablet PO SCH (17:41)
[2017-11-26] MEDS: Sucralfate 1 GM Tablet PO SCH ×2 (17:41→20:39)
[2017-11-26] MEDS: Lacosamide 100 MG Tablet PO SCH (20:39)
[2017-11-27] MEDS: Sod Chloride 0.9% Inj 1,000 ML IV.CONT SCH ×2 (01:29→14:21)
--- NOTE | 2017-11-27 10:36 | P.HPFP ---
History of Present Illness Service: Family Medicine Primary Care Physician: Chalo Garcia DO Chief Complaint: AMS History of Present Illness: I received a call from Mica yesterday that the patient had become progressively weaker over several days and was very lethargic and stopped eating and drinking. I ordered her sent to the ED and was called for the adm. I consulted Neuro to see for AMS and later consulted renal to see for ANNA. Overnight with IVF and antibiotics for an apparent UTI, she has brightened and is conversive though still not totally oriented. Neuro and renal consults are pending. - Diagnosis (1) Acute kidney failure (2) Altered mental state (3) Dehydration (4) Acute UTI (5) Acute prerenal azotemia Review of Systems Constitutional: Reports anorexia Eyes: Denies loss of vision, Denies pain Ears, Nose, Mouth, and Throat: Reports dry mouth Cardiovascular: Denies chest pain Respiratory: Denies chest congestion Gastrointestinal: Denies abdominal pain Genitourinary: Denies abnormal vaginal bleeding Musculoskeletal: Reports body aches, Reports decreased muscle mass, Reports stiffness Skin/Breast: Denies bleeding lesions Neurologic: Reports unsteadiness, Reports weakness, Denies abnormal hearing, Denies abnormal movements Psychiatric: Reports behavioral changes, Reports change in appetite Endocrine: Denies cold intolerance, Denies excessive sweating Hematologic/Lymphatic: Denies easy bleeding, Denies easy bruising Allergic/Immunologic: Denies GI upset with certain foods PMFSH - History History Provided By: Patient - Medical / Surgical Hx Neg / Unobtainable Medical Problems Denied: Yes - Medical History Medical History: Medical History (Last Reviewed 11/27/17 @ 10:25 by Cheko Eckert) Altered mental status Anxiety Depressive disorder Diabetes Difficulty in walking Dysphagia GERD (gastroesophageal reflux disease) Genital candidiasis HBP (high blood pressure) History of fall Hyperlipidemia - Surgical History Surgical History: Surgical History (Last Reviewed 11/27/17 @ 10:25 by Cheko Eckert) Hx of cholecystectomy - Family History Family History: Family History (Last Updated 11/27/17 @ 10:26 by Cheko Eckert) Other Adopted - Tobacco History Second Hand Smoke Exposure: No Tobacco Use In Past 30 Days: No (QUIT 40 YEARS AGO) Smoking Status: Former smoker Tobacco Type: Cigarettes - Alcohol History How Often Do You Have a Drink Containing Alcohol: Never - Travel History History of Recent Travel: No Recent Travel in the [place] Within the Last 8 Weeks: No Recent Travel Out of the Country Within the Last 8 Weeks: No - Immunization History Tetanus Immunization: >5 Years Hx Influenza Vaccine This Season: Yes Medications and Allergies Active Medications: Active Medications Albuterol (Ventolin Hfa Inh) 2 puff INH Q6H PRN PRN Reason: Respiratory Distress Baclofen (Lioresal) 10 mg PO TID [facility] Last Admin: 11/26/17 17:41 Dose: Not Given Dextrose (D50w Vial) 50 ml IV.PUSH UNSCH PRN PRN Reason: PER HYPOGLYCEMIA PROTOCOL Enoxaparin Sodium (Lovenox Inj) 40 mg SQ DAILY [facility] Folic Acid (Folic Acid) 1 mg PO DAILY [facility] Glucagon (Glucagon Inj) 1 mg OTHER PRN PRN PRN Reason: for Hypoglycemia Protocol Sodium Chloride (Ns Inj) 1,000 mls @ 100 mls/hr IV.CONT .Q10H [facility] Last Admin: 11/27/17 01:29 Dose: 100 mls/hr Insulin Aspart (Novolog Insulin Correctional Sugar Inj) 0 unit SQ ACHS [facility]; Protocol Last Admin: 11/26/17 20:32 Dose: Not Given Lacosamide (Vimpat) 100 mg PO BID [facility] Last Admin: 11/26/17 20:39 Dose: 100 mg Metformin HCl (Glucophage) 1,000 mg PO BID [facility] Last Admin: 11/26/17 20:32 Dose: Not Given Multivitamins (Theragran) 1 tab PO DAILY [facility] Pantoprazole Sodium (Protonix) 20 mg PO DAILY [facility] Pravastatin Sodium (Pravachol) 40 mg PO DAILY [facility] Pregabalin (Lyrica) 50 mg PO TID [facility] Last Admin: 11/26/17 17:09 Dose: Not Given Sertraline HCl (Zoloft) 50 mg PO DAILY [facility] Sodium Chloride (Ns Flush) 2 ml IV.FLUSH PRN PRN PRN Reason: FLUSH AFTER USING IV ACCESS Sucralfate (Carafate) 1 gm PO QID [facility] Last Admin: 11/26/17 20:39 Dose: 1 gm Tiotropium [place] (Spiriva 18 Mcg Inh) 2 mcg INH DAILY [facility] Allergies Allergy/AdvReac Type Severity Reaction Status Date / Time egg Allergy Intermediate Hives Verified 11/26/17 12:11 Influenza Virus Vaccines Allergy Intermediate Hives Verified 11/26/17 12:11 codeine Allergy Mild Hives Verified 11/26/17 12:11 meperidine Allergy Mild Hives Verified 11/26/17 12:11 morphine Allergy Mild Hives Verified 11/26/17 12:11 acetaminophen AdvReac Mild Gastrointestinal Verified 11/26/17 12:11 Upset hydrocodone AdvReac Mild Gastrointestinal Verified 11/26/17 12:11 Upset Home Medications Medication Instructions Recorded Confirmed Type RX: baclofen 10 mg PO TID 11/26/17 11/26/17 History RX: cyanocobalamin (vitamin B-12) 250 mcg PO DAILY 11/26/17 11/26/17 History RX: folic acid 1 mg PO DAILY 11/26/17 11/26/17 History RX: metformin 1,000 mg PO BID 11/26/17 11/26/17 History RX: multivitamin 1 tab PO DAILY 11/26/17 11/26/17 History RX: omeprazole 20 mg PO DAILY 11/26/17 11/26/17 History RX: pravastatin 40 mg PO DAILY 11/26/17 11/26/17 History RX: sucralfate 1 g PO QID 11/26/17 11/26/17 History albuterol sulfate [ProAir HFA] 2 puff INHALATION Q6H PRN 11/26/17 11/26/17 History lacosamide [Vimpat] 100 mg PO BID 11/26/17 11/26/17 History pregabalin [Lyrica] 50 mg PO TID 11/26/17 11/26/17 History sertraline [Zoloft] 50 mg PO DAILY 11/26/17 11/26/17 History tiotropium bromide [Spiriva 2 puff INHALATION DAILY 11/26/17 11/26/17 History Respimat] Exam Vital signs: Vital Signs 11/26/17 12:12 11/26/17 12:21 11/26/17 14:03 Temperature 97.8 F Pulse Rate 86 86 Respiratory Rate 18 Blood Pressure 136/88 Pulse Oximetry 97 99 95 11/26/17 14:29 11/26/17 15:04 11/26/17 15:43 Temperature 97.9 F 98.0 F Pulse Rate 89 97 H Respiratory Rate 17 18 Blood Pressure 102/68 122/63 Pulse Oximetry 98 100 100 11/26/17 16:56 11/26/17 20:00 11/26/17 23:14 Temperature 98.9 F 98.4 F Pulse Rate 89 88 89 Respiratory Rate 20 16 16 Blood Pressure 150/80 H 155/62 H 155/77 H Pulse Oximetry 95 98 100 11/27/17 03:36 11/27/17 08:00 Temperature 99.0 F 99.0 F Pulse Rate 94 H 99 H Respiratory Rate 18 16 Blood Pressure 151/80 H 150/93 H Pulse Oximetry 100 95 Intake & Output 11/26/17 11/27/17 11/27/17 18:59 06:59 18:59 Intake Total 1200 / 1200 1120 / 1120 Output Total 500 / 500 Balance 700 / 700 1120 / 1120 Weight 165 kg Intake: IV 1200 / 1200 1000 / 1000 NS Inj 1,000 ML @ 100 mls/hr IV 100 / 100 1000 / 1000 .CONT .Q10H BR[facility] Rx#:[id number] NS Inj 1,000 ML @ Wide Open IV. 1000 / 1000 SIG BOLUS ONE Rx#:[id number] Rocephin Inj 2,000 MG In NS Inj 100 / 100 100 ML @ 200 mls/hr IV.SIG ONCE ONE Rx#:[id number] Oral 0 / 0 120 / 120 Output: Urine 500 / 500 Other: # Voids 1 # Incontinent Voids 1 - Constitutional no acute distress, chronically ill appearing, agitated - Routine HEENT Exam Head: Present: normocephalic, atraumatic Eye: Present: PERRL ENT: Present: mucous membranes dry - Routine Neck Exam Present: supple, full ROM - Routine Respiratory Exam Present: decreased breath sounds, rales, distant breath sounds - Routine Cardiovascular Exam Present: RRR, S1, S2 - Routine Abdominal Exam Present: soft, normoactive bowel sounds - Routine Extremities Exam Present: pulses intact - Routine Skin Exam Present: intact - Routine Neurological Exam Present: alert Not oriented to time. Results - Labs Result diagrams: 11/26/17 12:30 11/26/17 12:30 Abnormal lab results 11/26/17 11/26/17 11/26/17 Range/Units 12:09 12:30 12:30 RBC 3.04 L (4.00-5.30) mil/mm3 Hgb 9.4 L (11.6-15.3) gm/dL Hct 28.6 L (35.0-46.0) % Plt Count 505 H (150-450) th/mm3 Neut % (Auto) 77.8 H (16.0-70.0) % Neut # (Auto) 8.1 H (1.8-7.7) th/mm3 Potassium 5.5 H (3.5-5.1) meq/L Chloride 111 H (98-107) meq/L BUN 44 H (7-18) mg/dL Creatinine 3.52 H (0.50-1.00) mg/dL Estimated GFR 13 L (>89) mL/min POC Glucose 114 H (68-110) mg/dl Ammonia (11-32) mcmol/L Albumin 3.3 L (3.4-5.0) g/dL Urine Clarity (Clear) Urine Protein (Neg-Trace) mg/dL Urine Occult Blood (Negative) Ur Leukocyte Esterase (Negative) Urine RBC (0-3) /hpf Urine WBC Clumps (None) Urine Bacteria (None) /hpf U Benzodiazepines Scrn (Neg) 11/26/17 11/26/17 11/26/17 Range/Units 12:30 12:30 12:40 RBC (4.00-5.30) mil/mm3 Hgb (11.6-15.3) gm/dL Hct (35.0-46.0) % Plt Count (150-450) th/mm3 Neut % (Auto) (16.0-70.0) % Neut # (Auto) (1.8-7.7) th/mm3 Potassium (3.5-5.1) meq/L Chloride (98-107) meq/L BUN (7-18) mg/dL Creatinine (0.50-1.00) mg/dL Estimated GFR (>89) mL/min POC Glucose (68-110) mg/dl Ammonia Less than 10 L (11-32) mcmol/L Albumin (3.4-5.0) g/dL Urine Clarity Turbid H (Clear) Urine Protein 100 H (Neg-Trace) mg/dL Urine Occult Blood Moderate H (Negative) Ur Leukocyte Esterase Large H (Negative) Urine RBC 20 H (0-3) /hpf Urine WBC Clumps Many H (None) Urine Bacteria Many H (None) /hpf U Benzodiazepines Scrn Pos H (Neg) Short CBC 11/26/17 Range/Units 12:30 WBC 10.4 (4.0-11.0) th/mm3 Hgb 9.4 L (11.6-15.3) gm/dL Hct 28.6 L (35.0-46.0) % Plt Count 505 H (150-450) th/mm3 BMP 11/26/17 12:30 Sodium 143 Potassium 5.5 H Chloride 111 H Carbon Dioxide 25.2 BUN 44 H Creatinine 3.52 H Calcium 8.8 Cardiac Enzymes 11/26/17 Range/Units 12:30 Troponin I 0.03 (0.02-0.05) ng/mL Liver Function 11/26/17 Range/Units 12:30 Total Bilirubin 0.2 (0.2-1.0) mg/dL AST 16 (15-37) U/L ALT 17 (10-53) U/L Alkaline Phosphatase 75 (45-117) U/L Albumin 3.3 L (3.4-5.0) g/dL Urine 11/26/17 Range/Units 12:30 Urine Color Yellow (Yellw/Straw) Urine Clarity Turbid H (Clear) Urine pH 5.0 (5.0-8.5) Ur Specific [place] 1.008 (1.002-1.035) Urine Protein 100 H (Neg-Trace) mg/dL Urine Glucose (UA) Negative (Negative) mg/dL - Imaging Impressions Chest X-Ray 11/26/17 12:21 CONCLUSION: 1. No acute abnormality or significant interval change. Head CT 11/26/17 12:21 CONCLUSION: 1. Stable senescent changes. 2. No acute intracranial abnormality. . Caprini VTE Risk Assessment Caprini VTE Risk Assessment: Moderate/High Risk (score >= 2) Caprini Risk Assessment Model: Point Value = 1 Point Value = 2 Point Value = 3 Point Value = 5 Age 41-60 Minor surgery BMI > 25 kg/m2 Swollen legs Varicose veins or History of unexplained or recurrent spontaneous Oral contraceptives or hormone replacement Sepsis (< 1 month) Serious lung disease, including pneumonia (< 1 month) Abnormal pulmonary function Acute myocardial infarction Congestive heart failure (< 1 month) History of inflammatory bowel disease Medical patient at bed rest Age 61-74 Arthroscopic surgery Major open surgery (> 45 min) Laparoscopic surgery (> 45 min) Malignancy Confined to bed (> 72 hours) Immobilizing plaster cast Central venous access Age >= 75 History of VTE Family history of VTE Factor V Leiden Prothrombin [id number] Lupus anticoagulant Anticardiolipin antibodies Elevated serum homocysteine Heparin-induced thrombocytopenia Other congenital or acquired thrombophilia Stroke (< 1 month) Elective arthroplasty Hip, pelvis, or leg fracture Acute spinal cord injury (< 1 month) Prophylaxis Regimen: Total Risk Factor Score Risk Level Prophylaxis Regimen 0-1 Low Early ambulation 2 Moderate Order ONE of the following: *Sequential Compression Device (SCD) *Heparin 5000 units SQ BID 3-4 Higher Order ONE of the following medications: *Heparin 5000 units SQ TID *Enoxaparin/Lovenox 40 mg SQ daily (WT < 150 kg, CrCl > 30 mL/min) *Enoxaparin/Lovenox 30 mg SQ daily (WT < 150 kg, CrCl > 10-29 mL/min) *Enoxaparin/Lovenox 30 mg SQ BID (WT < 150 kg, CrCl > 30 mL/min) AND/OR *Sequential Compression Device (SCD) 5 or more Highest Order ONE of the following medications: *Heparin 5000 units SQ TID (Preferred with Epidurals) *Enoxaparin/Lovenox 40 mg SQ daily (WT < 150 kg, CrCl > 30 mL/min) *Enoxaparin/Lovenox 30 mg SQ daily (WT < 150 kg, CrCl > 10-29 mL/min) *Enoxaparin/Lovenox 30 mg SQ BID (WT < 150 kg, CrCl > 30 mL/min) AND *Sequential Compression Device (SCD) Assessment and Plan - Assessment (1) Acute kidney failure Code(s): N17.9 - Acute kidney failure, unspecified Status: Acute Plan: Monitor GFR and avoid nephrotoxic agents and F/U renal consult. Cont IVF for hydration. (2) Altered mental state Code(s): R41.82 - Altered mental status, unspecified Status: Acute Plan: More alert today but not yet back to baseline. Will F/U Neuro consult and monitor closely. (3) Dehydration Code(s): E86.0 - Dehydration Status: Acute Plan: IVF for hydration (4) Acute UTI Code(s): N39.0 - Urinary tract infection, site not specified Status: Acute Plan: Stopped Levaquin due to reduced GFR. Current daily dose was inappropriate and if based on C&S, she needs Levaquin, would dose QOD. (5) Acute prerenal azotemia Code(s): R79.89 - Other specified abnormal findings of blood chemistry Status : Acute Plan: IVF and F/U pending renal consult. - Assessment and Plan She is altered and has several possible causes including reduced GFR, UTI and poss underlying dementia. Hopefully her GFR will improve with IVF and UTI will respond to antibiotics. Will F/U pending renal and neuro consults and monitor closely. Discussed Condition With: insole stiffener Planning: Mica SEAMAN
[2017-11-27] MEDS: Insulin NovoLOG Aspart Correctional Sugar Inj SQ SCH ×4 (10:54→22:04)
[2017-11-27] MEDS: Sertraline 50 MG Tablet PO SCH (10:55)
[2017-11-27] MEDS: Enoxaparin Inj 40 MG/0.4 ML Syringe SQ SCH (10:55)
[2017-11-27] MEDS: Baclofen 10 MG Tablet PO SCH ×3 (10:55→19:53)
[2017-11-27] MEDS: Pregabalin 25 MG Capsule PO SCH ×3 (10:55→19:54)
[2017-11-27] MEDS: Pantoprazole Sodium 20 MG DR Tablet PO SCH (10:56)
[2017-11-27] MEDS: Lacosamide 100 MG Tablet PO SCH ×2 (10:56→21:29)
[2017-11-27] MEDS: Folic Acid 1 MG Tablet PO SCH (10:56)
[2017-11-27] MEDS: Sucralfate 1 GM Tablet PO SCH ×5 (10:56→21:01)
--- NOTE | 2017-11-27 13:27 | MB ---
cc: John Martinez MD, PhD DATE: 11/27/2017 REASON FOR CONSULTATION: Mental status change. HISTORY OF PRESENT ILLNESS: This is a pleasant 77-year-old woman, resident of [facility], who was noted to be progressively weaker and confused over the past several days. She became dehydrated, stopped eating and drinking. She was treated with IV fluids overnight and antibiotics for possible UTI. She is better today. No focal deficits. Denies headaches. PAST MEDICAL HISTORY: She has a history of depression, diabetes, anxiety, difficulty walking, dysphagia, GERD, genital candidiasis, hypertension, history of falling, hyperlipidemia, cholecystectomy. CURRENT MEDICATIONS: 1. Baclofen 10 mg t.i.d. 2. Lovenox 40 mg subcutaneous daily. 3. Folic acid 1 mg daily. 4. Vimpat 100 mg b.i.d. 5. Metformin 1000 mg b.i.d. 6. Protonix 20 mg daily. 7. Pravachol 40 mg daily. 8. Lyrica 50 mg t.i.d. 9. Zoloft 50 mg daily. 10. Sucralfate 1 g q.i.d. 11. Spiriva. NEUROLOGICAL EXAMINATION: VITAL SIGNS: Her blood pressure is 150/93, pulse is 99, temperature 99 degrees. NEUROLOGIC: Higher cortical function. She is alert, disoriented to date and place, has poor recent memory. She is moderately confused. She does follow simple commands. Remote memory appears to be grossly intact. Cranial nerves are intact. Motor exam is normal. NECK: Supple with no meningismus. DIAGNOSTIC DATA: CT brain: Chronic atrophy, chronic ischemic changes, no acute change present. LABORATORY DATA: White count 10,400, hemoglobin 9.4, hematocrit 28.6%, platelet count 505,000. Sodium is 143, potassium 5.5, chloride 111, CO2 of 25.2, BUN is 44, creatinine 3.52, GFR is 13, glucose 114. Ammonia less than 10. AST 16, ALT 17. TSH 0.92. Urinalysis: pH is 5, specific gravity 1.008, protein 100, 20 RBCs, innumerable WBCs are seen. IMPRESSION: Metabolic encephalopathy from dehydration and urinary tract infection. RECOMMENDATIONS: Continue the current therapy antibiotics and IV fluids. John Martinez MD, PhD [place]/esperanza , 10:46 AM , 10:52 AM
--- NOTE | 2017-11-27 15:30 | ECG ---
Date Performed: 11/26/2017 Time Performed: 12:14:25 PTAGE: 77 years EKG: Sinus rhythm NORMAL ECG Since PREVIOUS TRACING , no significant change noted PREVIOUS TRACIN04/03/2017 08.39 DOCTOR: Juan Joy Interpretating Date/Time 11/27/2017 15:27:59
[2017-11-27 15:50] LABS: Baso # (Auto) 0.1 th/mm3 (0.0-0.2); Baso % (Auto) 0.7 % (0.0-2.0); Eos # (Auto) 0.4 th/mm3 (0.0-0.4); Eos % (Auto) 4.9 % (0.0-4.0); Hematocrit 23.2 % (35.0-46.0); Hemoglobin 8.1 gm/dL (11.6-15.3); Lymph % (Auto) 23.2 % (9.0-44.0); Mean Corpuscular Hemoglobin 32.6 pg (27.0-34.0); Mean Corpuscular Volume 93.3 fL (80.0-100.0); Mean Platelet Volume 7.3 fL (7.0-11.0); Mono # (Auto) 0.5 th/mm3 (0.0-0.9); Mono % (Auto) 6.2 % (0.0-8.0); Neut # (Auto) 5.7 th/mm3 (1.8-7.7); Platelet Count 394 th/mm3 (150-450); Red Blood Count 2.49 mil/mm3 (4.00-5.30); Red Cell Distribution Width 15.3 % (11.6-17.2); White Blood Count 8.7 th/mm3 (4.0-11.0)
[2017-11-27 16:29] LABS: Alanine Aminotransferase 15 U/L (10-53); Alkaline Phosphatase 70 U/L (45-117); Anion Gap 11 meq/L (5-15); Aspartate Aminotransferase 17 U/L (15-37); Blood Urea Nitrogen 39 mg/dL (7-18); Carbon Dioxide 22.4 meq/L (21.0-32.0); Chloride 113 meq/L (98-107); Glomerular Filtration Rate 15 mL/min (>89); Glucose,Random 124 mg/dL (74-106); Potassium 4.2 meq/L (3.5-5.1); Sodium 146 meq/L (136-145); Total Protein 6.8 g/dL (6.4-8.2)
--- NOTE | 2017-11-27 17:02 | MB ---
cc: Guillermo Pabon MD DATE: 11/27/2017 REASON FOR CONSULTATION: Acute renal failure management. HISTORY OF PRESENT ILLNESS: This is a 77-year-old female who lives at [facility]. The patient apparently has been progressively weaker over several days and had stopped eating or drinking for several days. She was brought to the emergency room for further evaluation. She was found to have a UTI and she has been given Levaquin and ceftriaxone for that. In addition, she has had presentation with acute renal failure. Her baseline creatinine has ranged between 0.9 and 1.2. She presented here with a creatinine of 3.5. She was seen last night and IV fluids were started with normal saline at 100 mL per hour. Repeat labs are pending from today. However, apparently the patient is much more awake and alert since her admission here. She was seen by neurology for initial altered mental status and her brain imaging studies were negative. She has been assessed with possible metabolic encephalopathy secondary to her UTI and renal failure. At this point, the patient reports she is feeling much better since starting IV fluids last night. She has had approximately 500 mL of urine output. Nephrology was consulted for further evaluation. REVIEW OF SYSTEMS: The patient reports having some vomiting with decreased p.o. intake and fatigue at the group home. Some diarrhea at the group home, which she has not had here. No fevers, no chills, no chest pains, no dizziness or loss of consciousness. Otherwise, review of systems is negative. PAST MEDICAL HISTORY: Includes altered mental status in the past, anxiety, depression, diabetes, difficulty with walking, dysphagia, GERD, genital candidiasis, hypertension, history of fall, dyslipidemia, anemia, cervical cancer. PAST SURGICAL HISTORY: Includes cholecystectomy. FAMILY HISTORY: The patient was adopted, unknown family history. SOCIAL HISTORY: The patient was a smoker and quit 40 years ago. Otherwise, no current alcohol, tobacco or drug use. ALLERGIES: INCLUDE EGGS, INFLUENZA VIRUS, CODEINE, MEPERIDINE, MORPHINE WELL ACETAMINOPHEN AND HYDROCODONE. MEDICATIONS AT HOME: Included baclofen, vitamin B12, folic acid, metformin, multivitamin, omeprazole, pravastatin, sucralfate, albuterol, lacosamide, Lyrica, Zoloft and Spiriva. PHYSICAL EXAMINATION: VITAL SIGNS: At time of evaluation, temperature 98.7, pulse 103, respiratory rate 18, blood pressure 137/80. GENERAL: Awake, alert, in no apparent distress. NECK: Soft, supple. CARDIAC: Regular rate and rhythm. PULMONARY: Clear to auscultation. Decreased breath sounds at bases. ABDOMEN: Soft, nontender, nondistended. EXTREMITIES: No edema. LABORATORY DATA: Urinalysis with moderate occult blood, large leukocyte esterase, 20 RBCs, many white blood cell clumps, many bacteria. Culture is pending. White count 10.4, hemoglobin 9.4, hematocrit 28.6, platelet count 505. Sodium 143, potassium 5.5, chloride 111, bicarbonate 25.2, BUN 44, creatinine 3.5, glucose 186. ASSESSMENT AND PLAN: 1. Acute kidney injury. The patient has a baseline creatinine between 0.9 and 1.2. Her last creatinine was 1.2 in August of this year. She has presented here with a creatinine of 3.5. At this point, I suspect she has developed acute renal failure secondary to volume depletion with decreased p.o. intake for several days in the setting of a urinary tract infection. Agree with intravenous fluids as ordered and the patient is on normal saline at 100 mL per hour. We will further assess urinalysis as well as urine electrolytes and renal ultrasound. She has made some urine output with 500 mL of urine output so far today. Continue to monitor for improvement of renal function with intravenous fluids. Otherwise, avoid nephrotoxic agents. Of note, the patient has been on metformin at home. Agree with continuing to hold this given the setting of acute renal failure and risk of acidosis. Also, the patient has been on tramadol at home. Recommend to continue to hold all nonsteroidal anti-inflammatory drugs in the setting of acute renal failure. 2. Urinary tract infection. Urinalysis with apparent urinary tract infection. The patient has apparently had a history of previous urinary tract infections in the past. She was given Levaquin and ceftriaxone. Continue to follow cultures and renal dose antibiotics. 3. Diabetes. Continue to monitor glucose levels. Continue to hold metformin. 4. Hypertension. Blood pressure is stable. Continue with medications. 5. Altered mental status. This appears to be metabolic encephalopathy, as per neurology. Apparently, her sensorium has improved today. Continue to monitor. 6. Hyperkalemia. The patient with a potassium initially of 5.5. She is making some urine output. I expect as her renal function improves, her potassium will further improve. If it is still elevated, may consider further medical management; however, continue to follow labs at this point. MD ARABELLA Roberts/luigi , 03:45 PM , 03:56 PM JAVI
[2017-11-27 17:42] LABS: Creatinine,Urine Random 24 mg/dL (27-300)
[2017-11-27] MEDS: Tiotropium Bromide 18 MCG/ACT Inhaler INH SCH (18:45)
--- NOTE | 2017-11-27 18:57 | US ---
EXAM DATE: 11/27/2017 6:46 PM EDT AGE/SEX: 77 years / Female INDICATIONS: Elevated labs. CLINICAL DATA: This is the patient's initial encounter. Patient reports that signs and symptoms have been present for 1 day and indicates a pain score of 10/10. MEDICAL/SURGICAL HISTORY: Diabetes. Gastroesophageal reflux disease. Hypertension. Hyperlipi demia. Dysphagia. Cholecystectomy. COMPARISON: [facility] [place], US KIDNEY/RENAL/BLADDER, 08/09/2017. [facility], US KIDNEY, BILATERAL, 02/23/2017. [facility] [place] , CT ABDOMEN & PELVIS W CONTRAST, 08/09/2017. . MEASUREMENTS: Right Kidney:__8.6 x 4.5 x 1.7 cm FINDINGS: Right Kidney: Renal cortex is normal thickness. No evidence of hydronephrosis. There is a 5 mm echoge troy focus which demonstrates possible shadowing located in the midpole. Left Kidney: Not visualized. Bladder: Within normal limits given the degree of distension. Other: None. CONCLUSION: 1. Limited quality examination. 2. No evidence of hydronephrosis in the right kidney, possible 5 mm nonobstructing stone mid pole. 3. Left kidney is not visualized (prior CT and August 2017 demonstrated the left kidney). Electronically signed by: Dano Mercer MD 11/27/2017 6:56 PM EDT
[2017-11-28] MEDS: Sod Chloride 0.9% Inj 1,000 ML IV.CONT SCH ×4 (00:22→20:30)
[2017-11-28 07:53] LABS: Hematocrit 22.9 % (35.0-46.0); Hemoglobin 7.5 gm/dL (11.6-15.3); Mean Corpuscular HGB Conc 32.8 % (32.0-36.0); Mean Corpuscular Hemoglobin 30.8 pg (27.0-34.0); Mean Corpuscular Volume 93.8 fL (80.0-100.0); Mean Platelet Volume 7.1 fL (7.0-11.0); Platelet Count 377 th/mm3 (150-450); Red Blood Count 2.44 mil/mm3 (4.00-5.30); White Blood Count 7.1 th/mm3 (4.0-11.0)
[2017-11-28 08:25] LABS: Albumin 2.9 g/dL (3.4-5.0); Anion Gap 9 meq/L (5-15); Aspartate Aminotransferase 16 U/L (15-37); Blood Urea Nitrogen 34 mg/dL (7-18); Chloride 117 meq/L (98-107); Glomerular Filtration Rate 16 mL/min (>89); Glucose,Random 104 mg/dL (74-106); Magnesium 1.7 mg/dL (1.5-2.5); Potassium 4.6 meq/L (3.5-5.1); Sodium 149 meq/L (136-145)
[2017-11-28 08:26] LABS: Alanine Aminotransferase 16 U/L (10-53); Phosphorus 4.5 mg/dL (2.5-4.9)
[2017-11-28 08:28] LABS: Alkaline Phosphatase 67 U/L (45-117); Total Protein 6.4 g/dL (6.4-8.2)
[2017-11-28] MEDS: Insulin NovoLOG Aspart Correctional Sugar Inj SQ SCH ×4 (09:10→22:51)
[2017-11-28] MEDS: Enoxaparin Inj 40 MG/0.4 ML Syringe SQ SCH (09:48)
[2017-11-28] MEDS: Tiotropium Bromide 18 MCG/ACT Inhaler INH SCH (09:49)
[2017-11-28] MEDS: Sucralfate 1 GM Tablet PO SCH ×4 (09:49→22:23)
[2017-11-28] MEDS: Pregabalin 25 MG Capsule PO SCH ×3 (09:49→17:27)
[2017-11-28] MEDS: Folic Acid 1 MG Tablet PO SCH (09:49)
[2017-11-28] MEDS: Lacosamide 100 MG Tablet PO SCH ×2 (09:49→22:23)
[2017-11-28] MEDS: Baclofen 10 MG Tablet PO SCH ×3 (09:49→17:34)
[2017-11-28] MEDS: Pantoprazole Sodium 20 MG DR Tablet PO SCH (09:49)
[2017-11-28] MEDS: Sertraline 50 MG Tablet PO SCH (09:50)
[2017-11-28] MEDS: Lactobacillus Acidophilus/L. Spores Tablet PO SCH ×2 (13:39→17:27)
--- NOTE | 2017-11-28 16:02 | P.PNIM ---
Subjective Interval history: Urine culture is positive for yeast. Antifungals added. No new complaints from the patient. Her mental status has improved compared to time of admit. Weakness remains. Physical Exam Vital signs: Vital Signs 11/27/17 19:47 11/28/17 00:00 11/28/17 02:38 Temperature 97.6 F 97.5 F L Pulse Rate 84 83 87 Respiratory Rate 14 14 Blood Pressure 159/86 H 178/90 H 158/87 H Pulse Oximetry 84 L 100 11/28/17 03:55 11/28/17 08:00 11/28/17 12:00 Temperature 98.1 F 98.5 F 98.2 F Pulse Rate 89 86 108 H Respiratory Rate 18 18 16 Blood Pressure 142/77 H 193/85 H 164/75 H Pulse Oximetry 99 100 100 Intake & Output 11/27/17 11/28/17 11/28/17 18:59 06:59 18:59 Intake Total 800 / 800 1240 / 1240 1000 / 1000 Output Total 900 / 900 Balance 800 / 800 340 / 340 1000 / 1000 Intake: IV 800 / 800 1000 / 1000 1000 / 1000 NS Inj 1,000 ML @ 100 mls/hr IV 800 / 800 1000 / 1000 1000 / 1000 .CONT .Q10H [facility] Rx#:[id number] Oral 240 / 240 Output: Urine 900 / 900 Other: # Voids 3 # Incontinent Voids 1 # Urine Diapers 3 Date of Last Bowel Movement 11/27/17 11/27/17 # Bowel Movements 2 Narrative: GENERAL: NAD, A&Ox3 HEAD: Normocephalic. NECK: Supple, trachea midline. No lymphadenopathy. EYES: No scleral icterus. No injection or drainage. CARDIOVASCULAR: Regular rate and rhythm without murmurs, gallops, or rubs. RESPIRATORY: Breath sounds equal bilaterally. No accessory muscle use. GASTROINTESTINAL: Abdomen soft, non-tender, nondistended. MUSCULOSKELETAL: No cyanosis, or edema. SKIN: Warm and dry. NEURO: No focal neurological deficits. Generalized weakness. - Urinary Catheter Management Straight Cath placed during this visit: yes, but has since been removed by the nurse Reason for continuing: Decision to DC catheter Insertion date: 11/26/17 Insertion time: 12:32 Removal date: 11/26/17 Removal time: 12:33 Results - Labs CBC & Chem 7: 11/28/17 07:30 11/28/17 07:30 Laboratory Results - last 24 hr 11/26/17 11/27/17 11/27/17 12:30 15:30 17:00 WBC RBC Hgb Hct MCV MCH MCHC RDW Plt Count MPV Sodium 146 H Potassium 4.2 D Chloride 113 H Carbon Dioxide 22.4 Anion Gap 11 BUN 39 H Creatinine 3.10 H Estimated GFR 15 L POC Glucose Random Glucose 124 H Calcium 8.0 L D Phosphorus Magnesium Total Bilirubin 0.1 L AST 17 ALT 15 Alkaline Phosphatase 70 Total Protein 6.8 D Albumin 3.0 L Urine Color Yellow Urine Clarity Turbid H Urine pH 5.0 Ur Specific [place] 1.008 Urine Protein 100 H Urine Glucose (UA) Negative Urine Ketones Negative Urine Occult Blood Moderate H Urine Nitrate Negative Urine Bilirubin Negative Urine Urobilinogen Less than 2 Ur Leukocyte Esterase Large H Urine RBC 20 H Urine WBC Urine WBC Clumps Many H Ur Squamous Epith Cells 4 Urine Bacteria Many H Micro UA Comment Cath-culture ind Urine Culture Comments Cath-cult indicated Ur Random Creatinine 24 L Ur Random Sodium 104 11/27/17 11/27/17 11/28/17 17:25 21:08 07:30 WBC 7.1 RBC 2.44 L Hgb 7.5 L Hct 22.9 L MCV 93.8 MCH 30.8 MCHC 32.8 RDW 15.0 Plt Count 377 MPV 7.1 Sodium Potassium Chloride Carbon Dioxide Anion Gap BUN Creatinine Estimated GFR POC Glucose 117 H 143 H Random Glucose Calcium Phosphorus Magnesium Total Bilirubin AST ALT Alkaline Phosphatase Total Protein Albumin Urine Color Urine Clarity Urine pH Ur Specific [place] Urine Protein Urine Glucose (UA) Urine Ketones Urine Occult Blood Urine Nitrate Urine Bilirubin Urine Urobilinogen Ur Leukocyte Esterase Urine RBC Urine WBC Urine WBC Clumps Ur Squamous Epith Cells Urine Bacteria Micro UA Comment Urine Culture Comments Ur Random Creatinine Ur Random Sodium 11/28/17 11/28/17 07:30 08:35 WBC RBC Hgb Hct MCV MCH MCHC RDW Plt Count MPV Sodium 149 H Potassium 4.6 Chloride 117 H Carbon Dioxide 23.0 Anion Gap 9 BUN 34 H Creatinine 2.89 H Estimated GFR 16 L POC Glucose 111 H Random Glucose 104 Calcium 8.0 L Phosphorus 4.5 Magnesium 1.7 Total Bilirubin 0.2 AST 16 ALT 16 Alkaline Phosphatase 67 Total Protein 6.4 Albumin 2.9 L Urine Color Urine Clarity Urine pH Ur Specific [place] Urine Protein Urine Glucose (UA) Urine Ketones Urine Occult Blood Urine Nitrate Urine Bilirubin Urine Urobilinogen Ur Leukocyte Esterase Urine RBC Urine WBC Urine WBC Clumps Ur Squamous Epith Cells Urine Bacteria Micro UA Comment Urine Culture Comments Ur Random Creatinine Ur Random Sodium Microbiology 11/26/17 12:30 Catheterized Urine Urine Culture - Preliminary Mayela albicans Pseudomonas species - Imaging Impressions Abdomen/Bladder Ultrasound 11/27/17 15:34 CONCLUSION: 1. Limited quality examination. 2. No evidence of hydronephrosis in the right kidney, possible 5 mm nonobstructing stone mid pole. 3. Left kidney is not visualized (prior CT and August 2017 demonstrated the left kidney). Assessment and Plan - Plan 77-year-old female admitted secondary to dehydration, UTI, and metabolic encephalopathy related to infection. Urinary tract infection Yeast on culture today Continue Levaquin Add Diflucan Monitor for final urine culture Monitor for improvement in symptoms Acute kidney injury Prerenal azotemia Dehydration Improving Follow renal function Altered mental status Improving Continue to treat infection as above Neurology following Dementia Supportive care Discharge planning [facility] at discharge
--- NOTE | 2017-11-28 16:47 | P.PNNEU ---
Subjective Subjective Comments: Pt feels more alert Active Medications: Active Medications Acetaminophen (Tylenol) 325 mg PO Q6H PRN PRN Reason: HEADACHE Albuterol (Ventolin Hfa Inh) 2 puff INH Q6H PRN PRN Reason: Respiratory Distress Baclofen (Lioresal) 10 mg PO TID [facility] Last Admin: 11/28/17 13:39 Dose: 10 mg Clonidine HCl (Catapres) 0.1 mg PO Q6H PRN PRN Reason: SYS BP GREATER THAN 160 MMHG Dextrose (D50w Vial) 50 ml IV.PUSH UNSCH PRN PRN Reason: PER HYPOGLYCEMIA PROTOCOL Enoxaparin Sodium (Lovenox Inj) 40 mg SQ DAILY [facility] Last Admin: 11/28/17 09:48 Dose: 40 mg Folic Acid (Folic Acid) 1 mg PO DAILY [facility] Last Admin: 11/28/17 09:49 Dose: 1 mg Glucagon (Glucagon Inj) 1 mg OTHER PRN PRN PRN Reason: for Hypoglycemia Protocol Sodium Chloride (Ns Inj) 1,000 mls @ 100 mls/hr IV.CONT .Q10H [facility] Last Admin: 11/28/17 09:48 Dose: 100 mls/hr Fluconazole (Diflucan 400 Mg Premix Bag) 200 mls @ 100 mls/hr IV.SIG Q24H [facility] Last Admin: 11/28/17 12:32 Dose: 100 mls/hr Insulin Aspart (Novolog Insulin Correctional Sugar Inj) 0 unit SQ ACHS [facility]; Protocol Last Admin: 11/28/17 13:38 Dose: 100 unit Lacosamide (Vimpat) 100 mg PO BID [facility] Last Admin: 11/28/17 09:49 Dose: 100 mg Lactobacillus Acidophilus (Lactinex) 1 tab PO TID [facility] Last Admin: 11/28/17 13:39 Dose: 1 tab Metformin HCl (Glucophage) 1,000 mg PO BID [facility] Last Admin: 11/27/17 10:56 Dose: Not Given Multivitamins (Theragran) 1 tab PO DAILY [facility] Last Admin: 11/28/17 09:49 Dose: 1 tab Pantoprazole Sodium (Protonix) 20 mg PO DAILY [facility] Last Admin: 11/28/17 09:49 Dose: 20 mg Pravastatin Sodium (Pravachol) 40 mg PO DAILY [facility] Last Admin: 11/28/17 09:49 Dose: 40 mg Pregabalin (Lyrica) 50 mg PO TID [facility] Last Admin: 11/28/17 13:39 Dose: 50 mg Sertraline HCl (Zoloft) 50 mg PO DAILY [facility] Last Admin: 11/28/17 09:50 Dose: 50 mg Sodium Chloride (Ns Flush) 2 ml IV.FLUSH PRN PRN PRN Reason: FLUSH AFTER USING IV ACCESS Sucralfate (Carafate) 1 gm PO QID [facility] Last Admin: 11/28/17 13:39 Dose: 1 gm Tiotropium [place] (Spiriva 18 Mcg Inh) 2 mcg INH DAILY [facility] Last Admin: 11/28/17 09:49 Dose: 2 mcg Allergies/Adverse Reactions: Allergies Allergy/AdvReac Type Severity Reaction Status Date / Time egg Allergy Intermediate Hives Verified 11/26/17 12:11 Influenza Virus Vaccines Allergy Intermediate Hives Verified 11/26/17 12:11 codeine Allergy Mild Hives Verified 11/26/17 12:11 meperidine Allergy Mild Hives Verified 11/26/17 12:11 morphine Allergy Mild Hives Verified 11/26/17 12:11 acetaminophen AdvReac Mild Gastrointestinal Verified 11/26/17 12:11 Upset hydrocodone AdvReac Mild Gastrointestinal Verified 11/26/17 12:11 Upset Physical Exam Vital signs: Vital Signs 11/27/17 19:47 11/28/17 00:00 11/28/17 02:38 Temperature 97.6 F 97.5 F L Pulse Rate 84 83 87 Respiratory Rate 14 14 Blood Pressure 159/86 H 178/90 H 158/87 H Pulse Oximetry 84 L 100 11/28/17 03:55 11/28/17 08:00 11/28/17 12:00 Temperature 98.1 F 98.5 F 98.2 F Pulse Rate 89 86 108 H Respiratory Rate 18 18 16 Blood Pressure 142/77 H 193/85 H 164/75 H Pulse Oximetry 99 100 100 11/28/17 16:00 Temperature 97.8 F Pulse Rate 98 H Respiratory Rate 17 Blood Pressure 195/83 H Pulse Oximetry 97 Intake & Output 11/27/17 11/28/17 11/28/17 18:59 06:59 18:59 Intake Total 800 / 800 1240 / 1240 1640 / 1640 Output Total 900 / 900 800 / 800 Balance 800 / 800 340 / 340 840 / 840 Intake: IV 800 / 800 1000 / 1000 1000 / 1000 NS Inj 1,000 ML @ 100 mls/hr IV 800 / 800 1000 / 1000 1000 / 1000 .CONT .Q10H [facility] Rx#:[id number] Oral 240 / 240 640 / 640 Output: Urine 900 / 900 800 / 800 Other: # Voids 3 # Incontinent Voids 1 # Urine Diapers 3 Date of Last Bowel Movement 11/27/17 11/27/17 # Bowel Movements 2 1 - Routine Neurological Exam alert, oriented times 3, follows commands, speech is fluent CN intact MOTOR 5/5 BUE - Urinary Catheter Management Straight Cath placed during this visit: yes, but has since been removed by the nurse Reason for continuing: Decision to DC catheter Insertion date: 11/26/17 Insertion time: 12:32 Removal date: 11/26/17 Removal time: 12:33 Objective Laboratory Results - last 24 hr 11/26/17 11/27/17 11/27/17 12:30 17:00 17:25 WBC RBC Hgb Hct MCV MCH MCHC RDW Plt Count MPV Sodium Potassium Chloride Carbon Dioxide Anion Gap BUN Creatinine Estimated GFR POC Glucose 117 H Random Glucose Calcium Phosphorus Magnesium Total Bilirubin AST ALT Alkaline Phosphatase Total Protein Albumin Urine Color Yellow Urine Clarity Turbid H Urine pH 5.0 Ur Specific [place] 1.008 Urine Protein 100 H Urine Glucose (UA) Negative Urine Ketones Negative Urine Occult Blood Moderate H Urine Nitrate Negative Urine Bilirubin Negative Urine Urobilinogen Less than 2 Ur Leukocyte Esterase Large H Urine RBC 20 H Urine WBC Urine WBC Clumps Many H Ur Squamous Epith Cells 4 Urine Bacteria Many H Micro UA Comment Cath-culture ind Urine Culture Comments Cath-cult indicated Ur Random Creatinine 24 L Ur Random Sodium 104 11/27/17 11/28/17 11/28/17 21:08 07:30 07:30 WBC 7.1 RBC 2.44 L Hgb 7.5 L Hct 22.9 L MCV 93.8 MCH 30.8 MCHC 32.8 RDW 15.0 Plt Count 377 MPV 7.1 Sodium 149 H Potassium 4.6 Chloride 117 H Carbon Dioxide 23.0 Anion Gap 9 BUN 34 H Creatinine 2.89 H Estimated GFR 16 L POC Glucose 143 H Random Glucose 104 Calcium 8.0 L Phosphorus 4.5 Magnesium 1.7 Total Bilirubin 0.2 AST 16 ALT 16 Alkaline Phosphatase 67 Total Protein 6.4 Albumin 2.9 L Urine Color Urine Clarity Urine pH Ur Specific [place] Urine Protein Urine Glucose (UA) Urine Ketones Urine Occult Blood Urine Nitrate Urine Bilirubin Urine Urobilinogen Ur Leukocyte Esterase Urine RBC Urine WBC Urine WBC Clumps Ur Squamous Epith Cells Urine Bacteria Micro UA Comment Urine Culture Comments Ur Random Creatinine Ur Random Sodium 11/28/17 08:35 WBC RBC Hgb Hct MCV MCH MCHC RDW Plt Count MPV Sodium Potassium Chloride Carbon Dioxide Anion Gap BUN Creatinine Estimated GFR POC Glucose 111 H Random Glucose Calcium Phosphorus Magnesium Total Bilirubin AST ALT Alkaline Phosphatase Total Protein Albumin Urine Color Urine Clarity Urine pH Ur Specific [place] Urine Protein Urine Glucose (UA) Urine Ketones Urine Occult Blood Urine Nitrate Urine Bilirubin Urine Urobilinogen Ur Leukocyte Esterase Urine RBC Urine WBC Urine WBC Clumps Ur Squamous Epith Cells Urine Bacteria Micro UA Comment Urine Culture Comments Ur Random Creatinine Ur Random Sodium Microbiology 11/26/17 12:30 Urine Culture - Preliminary Catheterized Urine Mayela albicans Pseudomonas species Review/Management - Diagnosis (1) Encephalopathy Code(s): G93.40 - Encephalopathy, unspecified Status: Acute Current Visit: Yes
[2017-11-28] MEDS: Acetaminophen 325 MG Tablet PO PRN (17:27)
--- NOTE | 2017-11-28 18:38 | P.PNNP ---
Subjective Interval history: Follow-up plan the weekend from Dr. Pabon, patient grew yeast and discovered for UTI Physical Exam Vital signs: Vital Signs 11/27/17 19:47 11/28/17 00:00 11/28/17 02:38 Temperature 97.6 F 97.5 F L Pulse Rate 84 83 87 Respiratory Rate 14 14 Blood Pressure 159/86 H 178/90 H 158/87 H Pulse Oximetry 84 L 100 11/28/17 03:55 11/28/17 08:00 11/28/17 12:00 Temperature 98.1 F 98.5 F 98.2 F Pulse Rate 89 86 108 H Respiratory Rate 18 18 16 Blood Pressure 142/77 H 193/85 H 164/75 H Pulse Oximetry 99 100 100 11/28/17 16:00 11/28/17 16:53 Temperature 97.8 F Pulse Rate 98 H Respiratory Rate 17 Blood Pressure 195/83 H 175/85 H Pulse Oximetry 97 Intake & Output 11/27/17 11/28/17 11/28/17 18:59 06:59 18:59 Intake Total 800 / 800 1240 / 1240 1640 / 1640 Output Total 900 / 900 800 / 800 Balance 800 / 800 340 / 340 840 / 840 Intake: IV 800 / 800 1000 / 1000 1000 / 1000 NS Inj 1,000 ML @ 100 mls/hr IV 800 / 800 1000 / 1000 1000 / 1000 .CONT .Q10H [facility] Rx#:[id number] Oral 240 / 240 640 / 640 Output: Urine 900 / 900 800 / 800 Other: # Voids 3 # Incontinent Voids 1 # Urine Diapers 3 Date of Last Bowel Movement 11/27/17 11/27/17 # Bowel Movements 2 1 - Constitutional no acute distress - Routine HEENT Exam Head: Present: normocephalic - Routine Neck Exam Present: supple - Routine Respiratory Exam Present: CTA bilaterally - Routine Cardiovascular Exam Present: RRR - Routine Abdominal Exam Present: soft - Routine Extremities Exam Present: pulses intact - Urinary Catheter Management Straight Cath placed during this visit: yes, but has since been removed by the nurse Reason for continuing: Decision to DC catheter Insertion date: 11/26/17 Insertion time: 12:32 Removal date: 11/26/17 Removal time: 12:33 Assessment and Plan - Assessment (1) Acute UTI Code(s): N39.0 - Urinary tract infection, site not specified Status: Acute (2) Acute prerenal azotemia Code(s): R79.89 - Other specified abnormal findings of blood chemistry Status : Acute - Plan Patient is covered with Diflucan as well Creatinine is slowly declining with hydration Monitor BMP
[2017-11-29] MEDS: Sod Chloride 0.9% Inj 1,000 ML IV.CONT SCH ×2 (04:03→14:59)
[2017-11-29] MEDS: Acetaminophen 325 MG Tablet PO PRN ×3 (05:11→19:06)
[2017-11-29] MEDS: Sucralfate 1 GM Tablet PO SCH ×4 (08:37→23:21)
[2017-11-29] MEDS: Pantoprazole Sodium 20 MG DR Tablet PO SCH (08:37)
[2017-11-29] MEDS: Baclofen 10 MG Tablet PO SCH ×3 (08:37→17:12)
[2017-11-29] MEDS: Folic Acid 1 MG Tablet PO SCH (08:37)
[2017-11-29] MEDS: Sertraline 50 MG Tablet PO SCH (08:38)
[2017-11-29] MEDS: Enoxaparin Inj 40 MG/0.4 ML Syringe SQ SCH (08:38)
[2017-11-29] MEDS: Lactobacillus Acidophilus/L. Spores Tablet PO SCH ×3 (08:38→17:12)
[2017-11-29] MEDS: Lacosamide 100 MG Tablet PO SCH (08:38)
[2017-11-29] MEDS: Pregabalin 25 MG Capsule PO SCH ×3 (08:38→17:12)
[2017-11-29] MEDS: Insulin NovoLOG Aspart Correctional Sugar Inj SQ SCH ×4 (08:38→23:19)
[2017-11-29] MEDS: Tiotropium Bromide 18 MCG/ACT Inhaler INH SCH (08:40)
[2017-11-29] MEDS ORDERED: Ciprofloxacin 500 MG Tablet PO ONE (09:45)
[2017-11-29 11:47] LABS: Baso # (Auto) 0.1 th/mm3 (0.0-0.2); Baso % (Auto) 1.2 % (0.0-2.0); Eos # (Auto) 0.3 th/mm3 (0.0-0.4); Eos % (Auto) 3.7 % (0.0-4.0); Hematocrit 25.6 % (35.0-46.0); Lymph # (Auto) 2.3 th/mm3 (1.0-4.8); Lymph % (Auto) 28.9 % (9.0-44.0); Mean Corpuscular HGB Conc 31.2 % (32.0-36.0); Mean Corpuscular Hemoglobin 30.2 pg (27.0-34.0); Mean Corpuscular Volume 96.5 fL (80.0-100.0); Mean Platelet Volume 7.4 fL (7.0-11.0); Mono # (Auto) 0.5 th/mm3 (0.0-0.9); Mono % (Auto) 6.6 % (0.0-8.0); Neut # (Auto) 4.8 th/mm3 (1.8-7.7); Neut % (Auto) 59.6 % (16.0-70.0); Platelet Count 384 th/mm3 (150-450); Red Blood Count 2.65 mil/mm3 (4.00-5.30)
--- NOTE | 2017-11-29 12:02 | P.PNIM ---
Subjective Interval history: Lethargy today. Final culture showed Mayela and Pseudomonas. Antibiotic adjusted. Physical Exam Vital signs: Vital Signs 11/28/17 16:00 11/28/17 16:53 11/28/17 20:00 Temperature 97.8 F 97.4 F L Pulse Rate 98 H 74 Respiratory Rate 17 16 Blood Pressure 195/83 H 175/85 H 97/56 L Pulse Oximetry 97 97 11/28/17 21:31 11/28/17 22:51 11/29/17 04:00 Temperature 97.5 F L 97.4 F L Pulse Rate 86 78 Respiratory Rate 16 16 Blood Pressure 124/56 L 148/69 H 154/72 H Pulse Oximetry 98 97 11/29/17 07:36 11/29/17 11:18 Temperature 98.3 F Pulse Rate 91 H Respiratory Rate 14 18 Blood Pressure 162/86 H Pulse Oximetry 97 Intake & Output 11/28/17 11/29/17 11/29/17 18:59 06:59 18:59 Intake Total 1640 / 1640 2320 / 2320 Output Total 800 / 800 800 / 800 Balance 840 / 840 1520 / 1520 Intake: IV 1000 / 1000 2200 / 2200 NS Inj 1,000 ML @ 100 mls/hr IV 1000 / 1000 2000 / 2000 .CONT .Q10H [facility] Rx#:[id number] Diflucan 400 mg Premix Bag 200 200 / 200 ML @ 100 mls/hr IV.SIG Q24H [facility] Rx#:[id number] Oral 640 / 640 120 / 120 Output: Urine 800 / 800 800 / 800 Other: # Incontinent Voids 1 Date of Last Bowel Movement 11/28/17 # Bowel Movements 1 Narrative: GENERAL: NAD, A&Ox3, lethargy HEAD: Normocephalic. NECK: Supple, trachea midline. No lymphadenopathy. EYES: No scleral icterus. No injection or drainage. CARDIOVASCULAR: Regular rate and rhythm without murmurs, gallops, or rubs. RESPIRATORY: Breath sounds equal bilaterally. No accessory muscle use. GASTROINTESTINAL: Abdomen soft, non-tender, nondistended. MUSCULOSKELETAL: No cyanosis, or edema. SKIN: Warm and dry. NEURO: No focal neurological deficits. Generalized weakness. - Urinary Catheter Management Straight Cath placed during this visit: yes, but has since been removed by the nurse Reason for continuing: Decision to DC catheter Insertion date: 11/26/17 Insertion time: 12:32 Removal date: 11/26/17 Removal time: 12:33 Results - Labs CBC & Chem 7: 11/29/17 11:12 11/28/17 07:30 Laboratory Results - last 24 hr 11/26/17 11/28/17 11/28/17 12:30 13:27 17:31 WBC RBC Hgb Hct MCV MCH MCHC RDW Plt Count MPV Neut % (Auto) Lymph % (Auto) [place] % (Auto) Eos % (Auto) Baso % (Auto) Neut # (Auto) Lymph # (Auto) [place] # (Auto) Eos # (Auto) Baso # (Auto) WBC Differential Differential Comment POC Glucose 178 H 105 Urine Color Yellow Urine Clarity Turbid H Urine pH 5.0 Ur Specific [place] 1.008 Urine Protein 100 H Urine Glucose (UA) Negative Urine Ketones Negative Urine Occult Blood Moderate H Urine Nitrate Negative Urine Bilirubin Negative Urine Urobilinogen Less than 2 Ur Leukocyte Esterase Large H Urine RBC 20 H Urine WBC Urine WBC Clumps Many H Ur Squamous Epith Cells 4 Urine Bacteria Many H Micro UA Comment Cath-culture ind Urine Culture Comments Cath-cult indicated 11/28/17 11/29/17 11/29/17 22:43 08:36 11:12 WBC 8.0 RBC 2.65 L Hgb 8.0 L Hct 25.6 L MCV 96.5 MCH 30.2 MCHC 31.2 L RDW 16.0 Plt Count 384 MPV 7.4 Neut % (Auto) 59.6 Lymph % (Auto) 28.9 [place] % (Auto) 6.6 Eos % (Auto) 3.7 Baso % (Auto) 1.2 Neut # (Auto) 4.8 Lymph # (Auto) 2.3 [place] # (Auto) 0.5 Eos # (Auto) 0.3 Baso # (Auto) 0.1 WBC Differential . Differential Comment Auto diff final POC Glucose 109 112 H Urine Color Urine Clarity Urine pH Ur Specific [place] Urine Protein Urine Glucose (UA) Urine Ketones Urine Occult Blood Urine Nitrate Urine Bilirubin Urine Urobilinogen Ur Leukocyte Esterase Urine RBC Urine WBC Urine WBC Clumps Ur Squamous Epith Cells Urine Bacteria Micro UA Comment Urine Culture Comments 11/29/17 11:27 WBC RBC Hgb Hct MCV MCH MCHC RDW Plt Count MPV Neut % (Auto) Lymph % (Auto) [place] % (Auto) Eos % (Auto) Baso % (Auto) Neut # (Auto) Lymph # (Auto) [place] # (Auto) Eos # (Auto) Baso # (Auto) WBC Differential Differential Comment POC Glucose 94 Urine Color Urine Clarity Urine pH Ur Specific [place] Urine Protein Urine Glucose (UA) Urine Ketones Urine Occult Blood Urine Nitrate Urine Bilirubin Urine Urobilinogen Ur Leukocyte Esterase Urine RBC Urine WBC Urine WBC Clumps Ur Squamous Epith Cells Urine Bacteria Micro UA Comment Urine Culture Comments Microbiology 11/26/17 12:30 Catheterized Urine Urine Culture - Preliminary Mayela albicans Pseudomonas aeruginosa Assessment and Plan - Plan 77-year-old female admitted secondary to dehydration, UTI, and metabolic encephalopathy related to infection. Urinary tract infection Mayela UTI Pseudomonas UTI Continue fluconazole Discontinue Levaquin Ciprofloxacin started Monitor for final urine culture Monitor for improvement in symptoms Acute kidney injury Prerenal azotemia Dehydration Improving Follow renal function Altered mental status Improving Continue to treat infection as above Neurology following Dementia Supportive care Discharge planning Sister intends to take patient home at time of discharge, patient not stable for home yet
[2017-11-29 12:18] LABS: Albumin 2.8 g/dL (3.4-5.0); Anion Gap 8 meq/L (5-15); Aspartate Aminotransferase 13 U/L (15-37); Blood Urea Nitrogen 28 mg/dL (7-18); Calcium 8.2 mg/dL (8.5-10.1); Carbon Dioxide 21.4 meq/L (21.0-32.0); Chloride 121 meq/L (98-107); Glomerular Filtration Rate 16 mL/min (>89); Glucose,Random 94 mg/dL (74-106); Magnesium 1.7 mg/dL (1.5-2.5); Potassium 4.7 meq/L (3.5-5.1); Sodium 150 meq/L (136-145)
[2017-11-29 12:20] LABS: Alanine Aminotransferase 16 U/L (10-53); Alkaline Phosphatase 64 U/L (45-117); Phosphorus 4.8 mg/dL (2.5-4.9); Total Protein 6.3 g/dL (6.4-8.2)
--- NOTE | 2017-11-29 13:50 | P.DCO ---
- Diagnosis (3) Acute kidney failure (4) Altered mental state - Physical Therapy Order: Evaluate and treat, Improve ambulation, Strength and gait training - Home Health Nursing Order: Medical education, Signs/symptoms of disease process, Nursing assessment with vital signs - Certification I have seen patient Saskia Darden on 11/29/17. My clinical findings support the need for the requested home health care services because: Limited mobility due to disease progression, Deconditioned with increased weakness, Medication compliance is questionable, Limited ability to care for self, Impaired cognition/judgement I certify that my clinical findings support that this patient is homebound because: Unsteady gait/balance, Unsafe to leave home unassisted, Unable to use public transportation (3) Acute kidney failure Qualifiers: Acute renal failure type: unspecified Qualified Code(s): N17.9 - Acute kidney failure, unspecified (4) Altered mental state Qualifiers: Altered mental status type: disorientation Qualified Code(s): R41.0 - Disorientation, unspecified
--- NOTE | 2017-11-29 17:56 | P.PNNP ---
Subjective Interval history: Patient about same Physical Exam Vital signs: Vital Signs 11/28/17 20:00 11/28/17 21:31 11/28/17 22:51 Temperature 97.4 F L 97.5 F L Pulse Rate 74 86 Respiratory Rate 16 16 Blood Pressure 97/56 L 124/56 L 148/69 H Pulse Oximetry 97 98 11/29/17 04:00 11/29/17 07:36 11/29/17 11:18 Temperature 97.4 F L 98.3 F Pulse Rate 78 91 H Respiratory Rate 16 14 18 Blood Pressure 154/72 H 162/86 H Pulse Oximetry 97 97 11/29/17 12:00 11/29/17 16:00 11/29/17 17:17 Temperature 98.4 F 97.9 F Pulse Rate 77 87 Respiratory Rate 14 14 Blood Pressure 178/72 H 173/83 H 150/81 H Pulse Oximetry 100 97 11/29/17 17:28 Temperature Pulse Rate Respiratory Rate Blood Pressure 150/81 H Pulse Oximetry Intake & Output 11/28/17 11/29/17 11/29/17 18:59 06:59 18:59 Intake Total 1640 / 1640 2320 / 2320 1200 / 1200 Output Total 800 / 800 800 / 800 800 / 800 Balance 840 / 840 1520 / 1520 400 / 400 Weight 65 kg Intake: IV 1000 / 1000 2200 / 2200 1200 / 1200 NS Inj 1,000 ML @ 100 mls/hr IV 1000 / 1000 2000 / 2000 1000 / 1000 .CONT .Q10H [facility] Rx#:[id number] Diflucan 400 mg Premix Bag 200 200 / 200 200 / 200 ML @ 100 mls/hr IV.SIG Q24H [facility] Rx#:[id number] Oral 640 / 640 120 / 120 Output: Urine 800 / 800 800 / 800 Urine Amount (Catheter) 800 / 800 Straight 800 / 800 Other: # Incontinent Voids 1 Date of Last Bowel Movement 11/28/17 # Bowel Movements 1 - Constitutional no acute distress - Routine HEENT Exam Eye: Present: EOMI - Routine Neck Exam Present: supple - Routine Respiratory Exam Present: CTA bilaterally - Routine Cardiovascular Exam Present: RRR - Routine Abdominal Exam Present: soft - Routine Extremities Exam Present: pulses intact - Urinary Catheter Management Straight Cath placed during this visit: yes, but has since been removed by the nurse Reason for continuing: Decision to DC catheter Insertion date: 11/26/17 Insertion time: 12:32 Removal date: 11/26/17 Removal time: 12:33 Assessment and Plan - Assessment (1) Acute UTI Code(s): N39.0 - Urinary tract infection, site not specified Status: Acute (2) Acute prerenal azotemia Code(s): R79.89 - Other specified abnormal findings of blood chemistry Status : Acute - Plan Patient is covered with Diflucan as well Creatinine is slowly declining with hydration 2.8 Sodium 150 change IV fluid to D5W Can be followed as outpatient in 1-2 days Monitor BMP
[2017-11-29] MEDS: Dextrose 5% in Water Inj 1,000 ML IV.CONT SCH (18:49)
[2017-11-29] MEDS: Ciprofloxacin 500 MG Tablet PO SCH (23:21)
[2017-11-30] MEDS: Dextrose 5% in Water Inj 1,000 ML IV.CONT SCH ×3 (06:54→18:23)
[2017-11-30] MEDS: Insulin NovoLOG Aspart Correctional Sugar Inj SQ SCH ×4 (09:28→23:48)
[2017-11-30] MEDS: Pregabalin 25 MG Capsule PO SCH ×3 (09:28→17:15)
[2017-11-30] MEDS: Sucralfate 1 GM Tablet PO SCH ×4 (09:29→23:48)
[2017-11-30] MEDS: Folic Acid 1 MG Tablet PO SCH (09:30)
[2017-11-30] MEDS: Lacosamide 100 MG Tablet PO SCH ×3 (09:30→23:48)
[2017-11-30] MEDS: Pantoprazole Sodium 20 MG DR Tablet PO SCH (09:30)
[2017-11-30] MEDS: Baclofen 10 MG Tablet PO SCH ×3 (09:30→17:16)
[2017-11-30] MEDS: Sertraline 50 MG Tablet PO SCH (09:31)
[2017-11-30] MEDS: Ciprofloxacin 500 MG Tablet PO SCH (09:31)
[2017-11-30] MEDS: Lactobacillus Acidophilus/L. Spores Tablet PO SCH ×3 (09:31→17:15)
[2017-11-30] MEDS: Enoxaparin Inj 40 MG/0.4 ML Syringe SQ SCH (09:31)
--- NOTE | 2017-11-30 10:35 | P.PNIM ---
Subjective Interval history: I received a call from [facility] yesterday that the patient had become progressively weaker over several days and was very lethargic and stopped eating and drinking. I ordered her sent to the ED and was called for the adm. I consulted Neuro to see for AMS and later consulted renal to see for ANNA. Overnight with IVF and antibiotics for an apparent UTI, she has brightened and is conversive though still not totally oriented. Neuro and renal consults are pending. "This is a pleasant 77-year-old woman, resident of [facility], who was noted to be progressively weaker and confused over the past several days. She became dehydrated, stopped eating and drinking. She was treated with IV fluids overnight and antibiotics for possible UTI. She is better today. No focal deficits. Denies headaches." PER NEUROLOGY 11-28 Urine culture is positive for yeast. Antifungals added. No new complaints from the patient. Her mental status has improved compared to time of admit. Weakness remains. 11-29 Lethargy today. Final culture showed Mayela and Pseudomonas. Antibiotic adjusted. 11-30 REMAINS CONFUSED BUT MORE ALERT DW RN AND PT AND CM WILL NEED SNF IN NEXT FEW DAYS FROM [facility] LABS HYPERNATREMIA STILL FLUIDS ADJUSTED Physical Exam Vital signs: Vital Signs 11/29/17 11:18 11/29/17 12:00 11/29/17 16:00 Temperature 98.4 F 97.9 F Pulse Rate 77 87 Respiratory Rate 18 14 14 Blood Pressure 178/72 H 173/83 H Pulse Oximetry 100 97 11/29/17 17:17 11/29/17 17:28 11/29/17 20:00 Temperature 98.4 F Pulse Rate 85 Respiratory Rate 18 Blood Pressure 150/81 H 150/81 H 132/74 Pulse Oximetry 98 11/30/17 08:00 Temperature 98.6 F Pulse Rate 94 H Respiratory Rate 18 Blood Pressure 128/99 H Pulse Oximetry 99 Intake & Output 11/29/17 11/30/17 11/30/17 18:59 06:59 18:59 Intake Total 1400 / 1400 1500 / 1500 250 / 250 Output Total 800 / 800 Balance 600 / 600 1500 / 1500 250 / 250 Weight 65 kg 65 kg Intake: IV 1400 / 1400 1500 / 1500 10 / 10 D5W Inj 1,000 ML @ 84 mls/hr IV 700 / 700 .CONT .[id number] BRYNN Rx#:[id number] NS Inj 1,000 ML @ 100 mls/hr IV 1200 / 1200 800 / 800 .CONT .Q10H BRYNN Rx#:[id number] Diflucan 400 mg Premix Bag 200 200 / 200 10 / 10 ML @ 100 mls/hr IV.SIG Q24H BRYNN Rx#:[id number] Oral 240 / 240 Output: Urine Amount (Catheter) 800 / 800 Straight 800 / 800 Other: # Incontinent Voids 3 Date of Last Bowel Movement 11/29/17 Narrative: GENERAL: NAD, A&Ox3, lethargy HEAD: Normocephalic. NECK: Supple, trachea midline. No lymphadenopathy. EYES: No scleral icterus. No injection or drainage. CARDIOVASCULAR: Regular rate and rhythm without murmurs, gallops, or rubs. RESPIRATORY: Breath sounds equal bilaterally. No accessory muscle use. GASTROINTESTINAL: Abdomen soft, non-tender, nondistended. MUSCULOSKELETAL: No cyanosis, or edema. SKIN: Warm and dry. NEURO: No focal neurological deficits. Generalized weakness. - Urinary Catheter Management Straight Cath placed during this visit: yes, but has since been removed by the nurse Reason for continuing: Decision to DC catheter Insertion date: 11/26/17 Insertion time: 12:32 Removal date: 11/26/17 Removal time: 12:33 Results - Labs CBC & Chem 7: 11/29/17 11:12 11/29/17 11:12 Laboratory Results - last 24 hr 11/29/17 11/29/17 11/29/17 11:12 11:12 11:27 WBC 8.0 RBC 2.65 L Hgb 8.0 L Hct 25.6 L MCV 96.5 MCH 30.2 MCHC 31.2 L RDW 16.0 Plt Count 384 MPV 7.4 Neut % (Auto) 59.6 Lymph % (Auto) 28.9 Piute % (Auto) 6.6 Eos % (Auto) 3.7 Baso % (Auto) 1.2 Neut # (Auto) 4.8 Lymph # (Auto) 2.3 Piute # (Auto) 0.5 Eos # (Auto) 0.3 Baso # (Auto) 0.1 WBC Differential . Differential Comment Auto diff final Sodium 150 H Potassium 4.7 Chloride 121 H Carbon Dioxide 21.4 Anion Gap 8 BUN 28 H Creatinine 2.83 H Estimated GFR 16 L POC Glucose 94 Random Glucose 94 Calcium 8.2 L Phosphorus 4.8 Magnesium 1.7 Total Bilirubin 0.1 L AST 13 L ALT 16 Alkaline Phosphatase 64 Total Protein 6.3 L Albumin 2.8 L 11/29/17 11/29/17 11/30/17 17:11 20:56 07:22 WBC RBC Hgb Hct MCV MCH MCHC RDW Plt Count MPV Neut % (Auto) Lymph % (Auto) Piute % (Auto) Eos % (Auto) Baso % (Auto) Neut # (Auto) Lymph # (Auto) Piute # (Auto) Eos # (Auto) Baso # (Auto) WBC Differential Differential Comment Sodium Potassium Chloride Carbon Dioxide Anion Gap BUN Creatinine Estimated GFR POC Glucose 124 H 114 H 124 H Random Glucose Calcium Phosphorus Magnesium Total Bilirubin AST ALT Alkaline Phosphatase Total Protein Albumin Microbiology 11/26/17 12:30 Catheterized Urine Urine Culture - Final Mayela albicans Pseudomonas aeruginosa - Imaging Chest X-Ray 11/26/17 12:21 CONCLUSION: 1. No acute abnormality or significant interval change. Head CT 11/26/17 12:21 CONCLUSION: 1. Stable senescent changes. 2. No acute intracranial abnormality. . Abdomen/Bladder Ultrasound 11/27/17 15:34 CONCLUSION: 1. Limited quality examination. 2. No evidence of hydronephrosis in the right kidney, possible 5 mm nonobstructing stone mid pole. 3. Left kidney is not visualized (prior CT and August 2017 demonstrated the left kidney). - Procedures NONE Assessment and Plan - Assessment (1) Dehydration Code(s): E86.0 - Dehydration Status: Acute (2) Acute UTI Code(s): N39.0 - Urinary tract infection, site not specified Status: Acute (3) Acute kidney failure Code(s): N17.9 - Acute kidney failure, unspecified Status: Acute (4) Altered mental state Code(s): R41.82 - Altered mental status, unspecified Status: Acute - Plan 77-year-old female admitted secondary to dehydration, UTI, and metabolic encephalopathy related to infection. Urinary tract infection Mayela UTI Pseudomonas UTI Continue fluconazole Discontinue Levaquin Ciprofloxacin started Monitor for final urine culture Monitor for improvement in symptoms Acute kidney injury Prerenal azotemia Dehydration HYPERNATREMIA Improving Follow renal function ADJUST FLUIDS Altered mental status Improving Continue to treat infection as above Neurology following Dementia Supportive care GAIT INSTABILITY PT AND OT DIABETES MELLITUS MONITOR SUGARS AND LABS AM LABS Discharge planning Sister intends to take patient home at time of discharge, patient not stable for home yet-- OR TO [facility]? Discussed Condition With: RN AND PATIENT AND CASE MANAGEMENT Discharge Planning: SNF VS HHC WITH SISTER?? (3) Acute kidney failure Qualifiers: Acute renal failure type: unspecified Qualified Code(s): N17.9 - Acute kidney failure, unspecified (4) Altered mental state Qualifiers: Altered mental status type: disorientation Qualified Code(s): R41.0 - Disorientation, unspecified
[2017-11-30] MEDS: Tiotropium Bromide 18 MCG/ACT Inhaler INH SCH (13:41)
--- NOTE | 2017-11-30 13:56 | P.PNNP ---
Subjective Interval history: Patient doing better Physical Exam Vital signs: Vital Signs 11/29/17 16:00 11/29/17 17:17 11/29/17 17:28 Temperature 97.9 F Pulse Rate 87 Respiratory Rate 14 Blood Pressure 173/83 H 150/81 H 150/81 H Pulse Oximetry 97 11/29/17 20:00 11/30/17 08:00 11/30/17 12:00 Temperature 98.4 F 98.6 F 98.7 F Pulse Rate 85 94 H 99 H Respiratory Rate 18 18 16 Blood Pressure 132/74 128/99 H 162/74 H Pulse Oximetry 98 99 100 Intake & Output 11/29/17 11/30/17 11/30/17 18:59 06:59 18:59 Intake Total 1400 / 1400 1500 / 1500 1250 / 1250 Output Total 800 / 800 Balance 600 / 600 1500 / 1500 1250 / 1250 Weight 65 kg 65 kg Intake: IV 1400 / 1400 1500 / 1500 1010 / 1010 D5W Inj 1,000 ML @ 84 mls/hr IV 700 / 700 1000 / 1000 .CONT .[id number] BRYNN Rx#:[id number] NS Inj 1,000 ML @ 100 mls/hr IV 1200 / 1200 800 / 800 .CONT .Q10H BRYNN Rx#:[id number] Diflucan 400 mg Premix Bag 200 200 / 200 10 / 10 ML @ 100 mls/hr IV.SIG Q24H BRYNN Rx#:[id number] Oral 240 / 240 Output: Urine Amount (Catheter) 800 / 800 Straight 800 / 800 Other: # Incontinent Voids 3 Date of Last Bowel Movement 11/29/17 - Constitutional no acute distress - Routine HEENT Exam Eye: Present: EOMI - Routine Neck Exam Present: supple - Routine Respiratory Exam Present: CTA bilaterally - Routine Cardiovascular Exam Present: RRR - Routine Abdominal Exam Present: soft - Routine Extremities Exam Present: pulses intact - Urinary Catheter Management Straight Cath placed during this visit: yes, but has since been removed by the nurse Reason for continuing: Decision to DC catheter Insertion date: 11/26/17 Insertion time: 12:32 Removal date: 11/26/17 Removal time: 12:33 Assessment and Plan - Assessment (1) Acute UTI Code(s): N39.0 - Urinary tract infection, site not specified Status: Acute (2) Acute prerenal azotemia Code(s): R79.89 - Other specified abnormal findings of blood chemistry Status : Acute - Plan Patient is covered with Diflucan as well Creatinine is slowly declining with hydration 2.8 yesterday Sodium 150 yesterday, IV fluid switched to D5W Follow blood work Monitor BMP
[2017-12-01] MEDS: Ciprofloxacin 500 MG Tablet PO SCH ×2 (03:14→21:47)
[2017-12-01] MEDS: Dextrose 5% in Water Inj 1,000 ML IV.CONT SCH ×2 (05:12→17:13)
[2017-12-01] MEDS: Insulin NovoLOG Aspart Correctional Sugar Inj SQ SCH ×5 (07:39→21:59)
--- NOTE | 2017-12-01 09:39 | P.PNIM ---
Subjective Interval history: I received a call from [facility] yesterday that the patient had become progressively weaker over several days and was very lethargic and stopped eating and drinking. I ordered her sent to the ED and was called for the adm. I consulted Neuro to see for AMS and later consulted renal to see for ANNA. Overnight with IVF and antibiotics for an apparent UTI, she has brightened and is conversive though still not totally oriented. Neuro and renal consults are pending. "This is a pleasant 77-year-old woman, resident of [facility], who was noted to be progressively weaker and confused over the past several days. She became dehydrated, stopped eating and drinking. She was treated with IV fluids overnight and antibiotics for possible UTI. She is better today. No focal deficits. Denies headaches." PER NEUROLOGY 11-28 Urine culture is positive for yeast. Antifungals added. No new complaints from the patient. Her mental status has improved compared to time of admit. Weakness remains. 11-29 Lethargy today. Final culture showed Mayela and Pseudomonas. Antibiotic adjusted. 11-30 REMAINS CONFUSED BUT MORE ALERT DW RN AND PT AND CM WILL NEED SNF IN NEXT FEW DAYS FROM [facility] AM LABS HYPERNATREMIA STILL FLUIDS ADJUSTED 12-01 LABS STILL PENDING REMAINS CONFUSED WILL NEED SNF DW RN AND PT WILL GET CT BRAIN NOW-STABLE MORE LETHARGIC TODAY- STOP BACLOFEN STOP BACLOFEN Physical Exam Vital signs: Vital Signs 11/30/17 12:00 11/30/17 16:00 11/30/17 16:08 Temperature 98.7 F 98.5 F Pulse Rate 99 H 91 H Respiratory Rate 16 16 Blood Pressure 162/74 H 171/81 H Pulse Oximetry 100 100 99 11/30/17 21:45 12/01/17 00:15 12/01/17 03:57 Temperature 98.8 F 97.7 F Pulse Rate 75 67 Respiratory Rate 20 19 16 Blood Pressure 118/68 120/65 Pulse Oximetry 99 99 12/01/17 05:30 Temperature 98.8 F Pulse Rate 68 Respiratory Rate 19 Blood Pressure 129/67 Pulse Oximetry 99 Intake & Output 11/30/17 12/01/17 12/01/17 18:59 06:59 18:59 Intake Total 1440 / 1440 2300 / 2300 Balance 1440 / 1440 2300 / 2300 Weight 65 kg Intake: IV 1200 / 1200 1000 / 1000 D5W Inj 1,000 ML @ 84 mls/hr IV 1000 / 1000 1000 / 1000 .CONT .[id number] BRYNN Rx#:[id number] Diflucan 400 mg Premix Bag 200 200 / 200 ML @ 100 mls/hr IV.SIG Q24H BRYNN Rx#:[id number] Oral 240 / 240 1300 / 1300 Other: # Voids 4 # Incontinent Voids 3 1 # Bowel Movements 0 Narrative: GENERAL: NAD, VERY LETHARGIC TODAY HEAD: Normocephalic. NECK: Supple, trachea midline. No lymphadenopathy. EYES: No scleral icterus. No injection or drainage. CARDIOVASCULAR: Regular rate and rhythm without murmurs, gallops, or rubs. RESPIRATORY: Breath sounds equal bilaterally. No accessory muscle use. GASTROINTESTINAL: Abdomen soft, non-tender, nondistended. MUSCULOSKELETAL: No cyanosis, or edema. SKIN: Warm and dry. NEURO: No focal neurological deficits. Generalized weakness. VERY LETHARGIC TODAY - Urinary Catheter Management Straight Cath placed during this visit: yes, but has since been removed by the nurse Reason for continuing: Decision to DC catheter Insertion date: 11/26/17 Insertion time: 12:32 Removal date: 11/26/17 Removal time: 12:33 Results - Labs CBC & Chem 7: 12/01/17 09:12 12/01/17 09:12 Laboratory Results - last 24 hr 11/30/17 11/30/17 11/30/17 12:21 17:14 20:23 POC Glucose 186 H 125 H 182 H 12/01/17 12/01/17 03:13 07:26 POC Glucose 130 H 141 H Microbiology 11/26/17 12:30 Catheterized Urine Urine Culture - Final Mayela albicans Pseudomonas aeruginosa - Imaging Chest X-Ray 11/26/17 12:21 CONCLUSION: 1. No acute abnormality or significant interval change. Head CT 11/26/17 12:21 CONCLUSION: 1. Stable senescent changes. 2. No acute intracranial abnormality. . Abdomen/Bladder Ultrasound 11/27/17 15:34 CONCLUSION: 1. Limited quality examination. 2. No evidence of hydronephrosis in the right kidney, possible 5 mm nonobstructing stone mid pole. 3. Left kidney is not visualized (prior CT and August 2017 demonstrated the left kidney). - Procedures NONE Assessment and Plan - Assessment (1) Dehydration Code(s): E86.0 - Dehydration Status: Acute (2) Acute UTI Code(s): N39.0 - Urinary tract infection, site not specified Status: Acute (3) Acute kidney failure Code(s): N17.9 - Acute kidney failure, unspecified Status: Acute (4) Altered mental state Code(s): R41.82 - Altered mental status, unspecified Status: Acute - Plan 77-year-old female admitted secondary to dehydration, UTI, and metabolic encephalopathy related to infection. Urinary tract infection Mayela UTI Pseudomonas UTI Continue fluconazole Discontinue Levaquin Ciprofloxacin started Monitor for final urine culture Monitor for improvement in symptoms Acute kidney injury Prerenal azotemia Dehydration HYPERNATREMIA Improving Follow renal function ADJUST FLUIDS WORSENING RENAL FUNCTIONS Altered mental status Improving Continue to treat infection as above Neurology following CT OF BRAIN STABLE ON 12-01 STOP BACLOFEN -MONITOR Dementia Supportive care GAIT INSTABILITY PT AND OT DIABETES MELLITUS MONITOR SUGARS AND LABS AM LABS MORE ALTERED TODAY THAN YESTERDAY WILL GET CT OF HEAD-STABLE AWAIT LABS? Discharge planning Sister intends to take patient home at time of discharge, patient not stable for home yet-- OR TO SNF Code Status: FULL CODE Discussed Condition With: RN AND PT AND CM Discharge Planning: SNF VS HHC WITH SISTER?? (3) Acute kidney failure Qualifiers: Acute renal failure type: unspecified Qualified Code(s): N17.9 - Acute kidney failure, unspecified (4) Altered mental state Qualifiers: Altered mental status type: disorientation Qualified Code(s): R41.0 - Disorientation, unspecified
[2017-12-01] MEDS: Lactobacillus Acidophilus/L. Spores Tablet PO SCH ×4 (10:10→17:14)
[2017-12-01] MEDS: Pregabalin 25 MG Capsule PO SCH ×4 (10:10→17:14)
[2017-12-01] MEDS: Folic Acid 1 MG Tablet PO SCH ×2 (10:11→10:24)
[2017-12-01] MEDS: Sucralfate 1 GM Tablet PO SCH ×5 (10:11→21:47)
[2017-12-01] MEDS: Sertraline 50 MG Tablet PO SCH ×2 (10:11→10:25)
[2017-12-01] MEDS: Pantoprazole Sodium 20 MG DR Tablet PO SCH ×2 (10:11→10:24)
[2017-12-01] MEDS: Lacosamide 100 MG Tablet PO SCH ×3 (10:11→21:47)
[2017-12-01] MEDS: Baclofen 10 MG Tablet PO SCH ×3 (10:12→12:15)
[2017-12-01] MEDS: Enoxaparin Inj 40 MG/0.4 ML Syringe SQ SCH (10:12)
[2017-12-01] MEDS: Tiotropium Bromide 18 MCG/ACT Inhaler INH SCH ×2 (10:14→10:25)
[2017-12-01 11:01] LABS: Baso % (Auto) 0.6 % (0.0-2.0); Eos # (Auto) 0.2 th/mm3 (0.0-0.4); Eos % (Auto) 2.3 % (0.0-4.0); Hematocrit 22.1 % (35.0-46.0); Hemoglobin 7.3 gm/dL (11.6-15.3); Lymph % (Auto) 27.3 % (9.0-44.0); Mean Corpuscular HGB Conc 33.2 % (32.0-36.0); Mean Corpuscular Hemoglobin 31.3 pg (27.0-34.0); Mean Corpuscular Volume 94.3 fL (80.0-100.0); Mean Platelet Volume 7.8 fL (7.0-11.0); Mono # (Auto) 0.7 th/mm3 (0.0-0.9); Mono % (Auto) 9.3 % (0.0-8.0); Neut # (Auto) 4.4 th/mm3 (1.8-7.7); Neut % (Auto) 60.5 % (16.0-70.0); Platelet Count 310 th/mm3 (150-450); Red Blood Count 2.34 mil/mm3 (4.00-5.30); Red Cell Distribution Width 15.6 % (11.6-17.2); White Blood Count 7.2 th/mm3 (4.0-11.0)
[2017-12-01 11:32] LABS: Albumin 2.8 g/dL (3.4-5.0); Anion Gap 8 meq/L (5-15); Aspartate Aminotransferase 12 U/L (15-37); Blood Urea Nitrogen 26 mg/dL (7-18); Calcium 8.6 mg/dL (8.5-10.1); Carbon Dioxide 23.9 meq/L (21.0-32.0); Chloride 117 meq/L (98-107); Glomerular Filtration Rate 14 mL/min (>89); Glucose,Random 105 mg/dL (74-106); Magnesium 1.8 mg/dL (1.5-2.5); Potassium 4.7 meq/L (3.5-5.1); Sodium 149 meq/L (136-145)
[2017-12-01 11:41] LABS: Alanine Aminotransferase 13 U/L (10-53); Alkaline Phosphatase 61 U/L (45-117); Free T4 (Free Thyroxine) 0.95 ng/dL (0.76-1.46); Phosphorus 5.2 mg/dL (2.5-4.9); Total Protein 6.4 g/dL (6.4-8.2)
--- NOTE | 2017-12-01 16:30 | CT ---
EXAM DATE: 12/01/2017 4:25 PM EDT AGE/SEX: 77 years / Female INDICATIONS: Altered mental status. CLINICAL DATA: This is the patient's initial encounter. Patient reports that signs and symptoms have been present for 1 day and indicates a pain score of Nonresponsive. MEDICAL/SURGICAL HISTORY: Hypertension. Diabetes. None. RADIATION DOSE: 33.08 CTDI (mGy) COMPARISON: [facility] [place] HEAD W/O CONTRAST, 11/26/2017. . TECHNIQUE: CT of the head without contrast. Using automated exposure control and adjustment of the mA and/or kV according to patient size, radiation dose was kept as low as reasonably achievable to ob tain optimal diagnostic quality images. DICOM format image data is available electronically for revi ew and comparison. FINDINGS: Cerebrum: Moderate diffuse cerebral atrophy. The ventricles are normal for degree of atrophy. Mild-t o-moderate periventricular white matter hypodensities. No evidence of midline shift, mass lesion, hem orrhage or acute infarction. No extraaxial fluid collections are seen. Posterior Fossa: The cerebellum and brainstem are intact. The 4th ventricle is midline. The cerebe llopontine angle is unremarkable. Extracranial: The visualized portion of the orbits is intact. Small amount of fluid in the left sphe noid sinus. Skull: The calvaria is intact. No evidence of skull fracture. CONCLUSION: 1. No acute intracranial abnormality. 2. Left sphenoid sinus disease. . Electronically signed by: Harris Gamboa MD 12/01/2017 4:29 PM EDT
[2017-12-01 16:50] LABS: Hemoglobin A1c 5.5 % (4.3-6.0)
--- NOTE | 2017-12-01 17:45 | P.PNNP ---
Subjective Interval history: Patient alert UTI is treated Physical Exam Vital signs: Vital Signs 11/30/17 21:45 12/01/17 00:15 12/01/17 03:57 Temperature 98.8 F 97.7 F Pulse Rate 75 67 Respiratory Rate 20 19 16 Blood Pressure 118/68 120/65 Pulse Oximetry 99 99 12/01/17 05:30 12/01/17 08:00 12/01/17 12:00 Temperature 98.8 F 97.1 F L Pulse Rate 68 80 Respiratory Rate 19 18 20 Blood Pressure 129/67 193/94 H Pulse Oximetry 99 100 12/01/17 16:00 Temperature 97.4 F L Pulse Rate 83 Respiratory Rate 20 Blood Pressure 161/104 H Pulse Oximetry 100 Intake & Output 11/30/17 12/01/17 12/01/17 18:59 06:59 18:59 Intake Total 1440 / 1440 2300 / 2300 200 / 200 Balance 1440 / 1440 2300 / 2300 200 / 200 Weight 65 kg Intake: IV 1200 / 1200 1000 / 1000 200 / 200 D5W Inj 1,000 ML @ 84 mls/hr IV 1000 / 1000 1000 / 1000 .CONT .[id number] BRYNN Rx#:[id number] Diflucan 400 mg Premix Bag 200 200 / 200 200 / 200 ML @ 100 mls/hr IV.SIG Q24H BRYNN Rx#:[id number] Oral 240 / 240 1300 / 1300 Other: # Voids 4 # Incontinent Voids 3 1 1 # Urine Diapers 1 # Bowel Movements 0 - Constitutional no acute distress - Routine HEENT Exam Head: Present: normocephalic - Routine Respiratory Exam Present: CTA bilaterally - Routine Cardiovascular Exam Present: RRR - Routine Abdominal Exam Present: soft - Routine Extremities Exam Present: pulses intact - Urinary Catheter Management Straight Cath placed during this visit: yes, but has since been removed by the nurse Reason for continuing: Decision to DC catheter Insertion date: 11/26/17 Insertion time: 12:32 Removal date: 11/26/17 Removal time: 12:33 Assessment and Plan - Assessment (1) Acute UTI Code(s): N39.0 - Urinary tract infection, site not specified Status: Acute (2) Acute prerenal azotemia Code(s): R79.89 - Other specified abnormal findings of blood chemistry Status : Acute - Plan Patient is covered with Diflucan as well Creatinine is worsening 3.3 creatinine Sodium improved, IV fluid D5W Follow blood work Consider blood transfusion Monitor BMP
[2017-12-02] MEDS: Dextrose 5% in Water Inj 1,000 ML IV.CONT SCH ×2 (05:18→17:46)
[2017-12-02 08:51] LABS: Baso # (Auto) 0.1 th/mm3 (0.0-0.2); Baso % (Auto) 0.6 % (0.0-2.0); Eos # (Auto) 0.1 th/mm3 (0.0-0.4); Eos % (Auto) 1.6 % (0.0-4.0); Hematocrit 24.7 % (35.0-46.0); Hemoglobin 8.2 gm/dL (11.6-15.3); Lymph % (Auto) 23.3 % (9.0-44.0); Mean Corpuscular HGB Conc 33.3 % (32.0-36.0); Mean Corpuscular Hemoglobin 31.3 pg (27.0-34.0); Mean Corpuscular Volume 94.1 fL (80.0-100.0); Mean Platelet Volume 7.9 fL (7.0-11.0); Mono # (Auto) 0.8 th/mm3 (0.0-0.9); Mono % (Auto) 8.9 % (0.0-8.0); Neut # (Auto) 5.6 th/mm3 (1.8-7.7); Neut % (Auto) 65.6 % (16.0-70.0); Platelet Count 302 th/mm3 (150-450); Red Blood Count 2.62 mil/mm3 (4.00-5.30); Red Cell Distribution Width 15.6 % (11.6-17.2); White Blood Count 8.6 th/mm3 (4.0-11.0)
[2017-12-02 08:52] LABS: Albumin 3.1 g/dL (3.4-5.0); Anion Gap 10 meq/L (5-15); Aspartate Aminotransferase 17 U/L (15-37); Blood Urea Nitrogen 24 mg/dL (7-18); Carbon Dioxide 22.8 meq/L (21.0-32.0); Chloride 117 meq/L (98-107); Glomerular Filtration Rate 14 mL/min (>89); Glucose,Random 88 mg/dL (74-106); Magnesium 1.6 mg/dL (1.5-2.5); Potassium 4.2 meq/L (3.5-5.1); Sodium 150 meq/L (136-145)
[2017-12-02 08:53] LABS: Alanine Aminotransferase 15 U/L (10-53)
[2017-12-02 08:56] LABS: Alkaline Phosphatase 71 U/L (45-117); Phosphorus 4.9 mg/dL (2.5-4.9); Total Protein 6.8 g/dL (6.4-8.2)
[2017-12-02] MEDS: Insulin NovoLOG Aspart Correctional Sugar Inj SQ SCH ×4 (09:15→22:06)
[2017-12-02] MEDS: Lactobacillus Acidophilus/L. Spores Tablet PO SCH ×3 (09:15→18:00)
[2017-12-02] MEDS: Sucralfate 1 GM Tablet PO SCH ×5 (09:15→22:06)
[2017-12-02] MEDS: Tiotropium Bromide 18 MCG/ACT Inhaler INH SCH (09:15)
[2017-12-02] MEDS: Folic Acid 1 MG Tablet PO SCH (09:15)
[2017-12-02] MEDS: Enoxaparin Inj 40 MG/0.4 ML Syringe SQ SCH (09:15)
[2017-12-02] MEDS: Pantoprazole Sodium 20 MG DR Tablet PO SCH (09:15)
[2017-12-02] MEDS: Pregabalin 25 MG Capsule PO SCH ×3 (09:15→18:00)
[2017-12-02] MEDS: Sertraline 50 MG Tablet PO SCH (09:16)
[2017-12-02] MEDS: Lacosamide 100 MG Tablet PO SCH ×2 (09:16→22:06)
--- NOTE | 2017-12-02 11:31 | P.PNIM ---
Subjective Interval history: I received a call from [facility] yesterday that the patient had become progressively weaker over several days and was very lethargic and stopped eating and drinking. I ordered her sent to the ED and was called for the adm. I consulted Neuro to see for AMS and later consulted renal to see for ANNA. Overnight with IVF and antibiotics for an apparent UTI, she has brightened and is conversive though still not totally oriented. Neuro and renal consults are pending. "This is a pleasant 77-year-old woman, resident of [facility], who was noted to be progressively weaker and confused over the past several days. She became dehydrated, stopped eating and drinking. She was treated with IV fluids overnight and antibiotics for possible UTI. She is better today. No focal deficits. Denies headaches." PER NEUROLOGY 11-28 Urine culture is positive for yeast. Antifungals added. No new complaints from the patient. Her mental status has improved compared to time of admit. Weakness remains. 11-29 Lethargy today. Final culture showed Mayela and Pseudomonas. Antibiotic adjusted. 11-30 REMAINS CONFUSED BUT MORE ALERT DW RN AND PT AND CM WILL NEED SNF IN NEXT FEW DAYS FROM [facility] LABS HYPERNATREMIA STILL FLUIDS ADJUSTED 12-01 LABS STILL PENDING REMAINS CONFUSED WILL NEED SNF DW RN AND PT WILL GET CT BRAIN NOW-STABLE MORE LETHARGIC TODAY- STOP BACLOFEN STOP BACLOFEN 12-02 MUCH MORE ALERT AND AWAKE AND INTERACTIVE TODAY DOES NOT LIKE THE PHONE OR THE TV OR THE CALL REMOTE DW RN AND PT AND CM SODIUM IS UP AGAIN RENAL FUNCTIONS NOT PERFECT Physical Exam Vital signs: Vital Signs 12/01/17 12:00 12/01/17 16:00 12/01/17 19:43 Temperature 97.1 F L 97.4 F L 98 F Pulse Rate 80 83 87 Respiratory Rate 20 20 18 Blood Pressure 193/94 H 161/104 H 159/97 H Pulse Oximetry 100 100 100 12/02/17 00:00 12/02/17 04:00 Temperature 99.4 F 99.0 F Pulse Rate 87 91 H Respiratory Rate 17 18 Blood Pressure 154/87 H 174/81 H Pulse Oximetry 98 100 Intake & Output 12/01/17 12/02/17 12/02/17 18:59 06:59 18:59 Intake Total 200 / 200 1000 / 1000 Balance 200 / 200 1000 / 1000 Weight 67.7 kg Intake: IV 200 / 200 1000 / 1000 D5W Inj 1,000 ML @ 84 mls/hr IV 1000 / 1000 .CONT .[id number] [facility] Rx#:[id number] Diflucan 400 mg Premix Bag 200 200 / 200 ML @ 100 mls/hr IV.SIG Q24H [facility] Rx#:[id number] Other: # Incontinent Voids 1 1 # Urine Diapers 1 Date of Last Bowel Movement 11/29/17 Narrative: GENERAL: NAD, awake and alert but very confused HEAD: Normocephalic. NECK: Supple, trachea midline. No lymphadenopathy. EYES: No scleral icterus. No injection or drainage. CARDIOVASCULAR: Regular rate and rhythm without murmurs, gallops, or rubs. RESPIRATORY: Breath sounds equal bilaterally. No accessory muscle use. GASTROINTESTINAL: Abdomen soft, non-tender, nondistended. MUSCULOSKELETAL: No cyanosis, or edema. SKIN: Warm and dry. NEURO: No focal neurological deficits. Generalized weakness. Insight and judgment is poor; mood and behavior is not appropriate - Urinary Catheter Management Straight Cath placed during this visit: yes, but has since been removed by the nurse Reason for continuing: Decision to DC catheter Insertion date: 11/26/17 Insertion time: 12:32 Removal date: 11/26/17 Removal time: 12:33 Results - Labs CBC & Chem 7: 12/02/17 06:39 12/02/17 06:39 Laboratory Results - last 24 hr 12/01/17 12/01/17 12/01/17 09:12 09:12 11:32 WBC RBC Hgb Hct MCV MCH MCHC RDW Plt Count MPV Neut % (Auto) Lymph % (Auto) [place] % (Auto) Eos % (Auto) Baso % (Auto) Neut # (Auto) Lymph # (Auto) [place] # (Auto) Eos # (Auto) Baso # (Auto) WBC Differential Differential Comment Sodium 149 H Potassium 4.7 Chloride 117 H Carbon Dioxide 23.9 Anion Gap 8 BUN 26 H Creatinine 3.30 H Estimated GFR 14 L POC Glucose 110 Random Glucose 105 Hemoglobin A1c 5.5 Calcium 8.6 Phosphorus 5.2 H Magnesium 1.8 Total Bilirubin 0.1 L AST 12 L ALT 13 Alkaline Phosphatase 61 Total Protein 6.4 Albumin 2.8 L TSH 1.450 Free T4 0.95 12/01/17 12/01/17 12/02/17 17:01 21:49 06:39 WBC RBC Hgb Hct MCV MCH MCHC RDW Plt Count MPV Neut % (Auto) Lymph % (Auto) [place] % (Auto) Eos % (Auto) Baso % (Auto) Neut # (Auto) Lymph # (Auto) [place] # (Auto) Eos # (Auto) Baso # (Auto) WBC Differential Differential Comment Sodium 150 H Potassium 4.2 Chloride 117 H Carbon Dioxide 22.8 Anion Gap 10 BUN 24 H Creatinine 3.13 H Estimated GFR 14 L POC Glucose 129 H 203 H Random Glucose 88 Hemoglobin A1c Calcium 9.0 Phosphorus 4.9 Magnesium 1.6 Total Bilirubin 0.1 L AST 17 ALT 15 Alkaline Phosphatase 71 Total Protein 6.8 Albumin 3.1 L TSH Free T4 12/02/17 12/02/17 06:39 08:33 WBC 8.6 RBC 2.62 L Hgb 8.2 L Hct 24.7 L MCV 94.1 MCH 31.3 MCHC 33.3 RDW 15.6 Plt Count 302 MPV 7.9 Neut % (Auto) 65.6 Lymph % (Auto) 23.3 [place] % (Auto) 8.9 H Eos % (Auto) 1.6 Baso % (Auto) 0.6 Neut # (Auto) 5.6 Lymph # (Auto) 2.0 [place] # (Auto) 0.8 Eos # (Auto) 0.1 Baso # (Auto) 0.1 WBC Differential . Differential Comment Auto diff final Sodium Potassium Chloride Carbon Dioxide Anion Gap BUN Creatinine Estimated GFR POC Glucose 180 H Random Glucose Hemoglobin A1c Calcium Phosphorus Magnesium Total Bilirubin AST ALT Alkaline Phosphatase Total Protein Albumin TSH Free T4 - Imaging Impressions Head CT 12/01/17 00:00 CONCLUSION: 1. No acute intracranial abnormality. 2. Left sphenoid sinus disease. . - Procedures NONE Assessment and Plan - Assessment (1) Dehydration Code(s): E86.0 - Dehydration Status: Acute (2) Acute UTI Code(s): N39.0 - Urinary tract infection, site not specified Status: Acute (3) Acute kidney failure Code(s): N17.9 - Acute kidney failure, unspecified Status: Acute (4) Altered mental state Code(s): R41.82 - Altered mental status, unspecified Status: Acute - Plan 77-year-old female admitted secondary to dehydration, UTI, and metabolic encephalopathy related to infection. Urinary tract infection Mayela UTI Pseudomonas UTI Continue fluconazole Discontinue Levaquin Ciprofloxacin started Monitor for final urine culture Monitor for improvement in symptoms Acute kidney injury Prerenal azotemia Dehydration HYPERNATREMIA Improving Follow renal function ADJUST FLUIDS WORSENING RENAL FUNCTIONS Altered mental status Improving Continue to treat infection as above Neurology following CT OF BRAIN STABLE ON 12-01 STOP BACLOFEN -MONITOR MUCH IMPROVED TODAY Dementia Supportive care GAIT INSTABILITY PT AND OT DIABETES MELLITUS MONITOR SUGARS AND LABS AM LABS MUCH MORE ALERT TODAY 12-02 Discharge planning Sister intends to take patient home at time of discharge, patient not stable for home yet-- OR TO SNF PROBABLY NEEDS SNF ONCE RENAL AND HYPERNATREMIA IMPROVE Code Status: FULL CODE Discussed Condition With: RN AND PT AND CM Discharge Planning: SNF VS HHC WITH SISTER?? (3) Acute kidney failure Qualifiers: Acute renal failure type: unspecified Qualified Code(s): N17.9 - Acute kidney failure, unspecified (4) Altered mental state Qualifiers: Altered mental status type: disorientation Qualified Code(s): R41.0 - Disorientation, unspecified
[2017-12-02] MEDS ORDERED: Albumin Human 25% Inj 100 ML IV.SIG SCH (14:00)
[2017-12-02] MEDS: Ciprofloxacin 500 MG Tablet PO SCH (15:35)
--- NOTE | 2017-12-02 17:36 | P.PNNP ---
Subjective Interval history: Patient is awake complaining of that she is wet in the bed Physical Exam Vital signs: Vital Signs 12/01/17 19:43 12/02/17 00:00 12/02/17 04:00 Temperature 98 F 99.4 F 99.0 F Pulse Rate 87 87 91 H Respiratory Rate 18 17 18 Blood Pressure 159/97 H 154/87 H 174/81 H Pulse Oximetry 100 98 100 Intake & Output 12/01/17 12/02/17 12/02/17 18:59 06:59 18:59 Intake Total 200 / 200 1000 / 1000 Balance 200 / 200 1000 / 1000 Weight 67.7 kg Intake: IV 200 / 200 1000 / 1000 D5W Inj 1,000 ML @ 84 mls/hr IV 1000 / 1000 .CONT .[id number] [facility] Rx#:[id number] Diflucan 400 mg Premix Bag 200 200 / 200 ML @ 100 mls/hr IV.SIG Q24H [facility] Rx#:[id number] Other: # Incontinent Voids 1 1 # Urine Diapers 1 Date of Last Bowel Movement 11/29/17 - Constitutional no acute distress - Routine HEENT Exam Eye: Present: EOMI - Routine Neck Exam Present: supple - Routine Respiratory Exam Present: CTA bilaterally - Routine Cardiovascular Exam Present: RRR - Routine Abdominal Exam Present: soft, normoactive bowel sounds - Routine Extremities Exam Present: pulses intact - Urinary Catheter Management Straight Cath placed during this visit: yes, but has since been removed by the nurse Reason for continuing: Decision to DC catheter Insertion date: 11/26/17 Insertion time: 12:32 Removal date: 11/26/17 Removal time: 12:33 Assessment and Plan - Assessment (1) Acute UTI Code(s): N39.0 - Urinary tract infection, site not specified Status: Acute (2) Acute prerenal azotemia Code(s): R79.89 - Other specified abnormal findings of blood chemistry Status : Acute - Plan Patient is covered with Diflucan as well Creatinine is better 3.1 creatinine Patient is not getting IV fluid as prescribed as her IV was out and I spoke to the charge nurse about patient being dehydrated Sodium 150, IV fluid D5W Follow blood work Monitor BMP
[2017-12-03] MEDS: Dextrose 5% in Water Inj 1,000 ML IV.CONT SCH ×2 (06:01→19:23)
[2017-12-03 07:21] LABS: Baso # (Auto) 0.1 th/mm3 (0.0-0.2); Baso % (Auto) 0.6 % (0.0-2.0); Eos # (Auto) 0.3 th/mm3 (0.0-0.4); Eos % (Auto) 3.8 % (0.0-4.0); Hematocrit 21.8 % (35.0-46.0); Hemoglobin 7.3 gm/dL (11.6-15.3); Lymph # (Auto) 2.1 th/mm3 (1.0-4.8); Lymph % (Auto) 25.9 % (9.0-44.0); Mean Corpuscular HGB Conc 33.4 % (32.0-36.0); Mean Corpuscular Hemoglobin 31.1 pg (27.0-34.0); Mean Corpuscular Volume 93.2 fL (80.0-100.0); Mean Platelet Volume 8.2 fL (7.0-11.0); Mono # (Auto) 0.8 th/mm3 (0.0-0.9); Mono % (Auto) 10.2 % (0.0-8.0); Neut # (Auto) 4.8 th/mm3 (1.8-7.7); Neut % (Auto) 59.5 % (16.0-70.0); Platelet Count 266 th/mm3 (150-450); Red Blood Count 2.34 mil/mm3 (4.00-5.30); Red Cell Distribution Width 15.8 % (11.6-17.2)
[2017-12-03 07:54] LABS: Alanine Aminotransferase 13 U/L (10-53); Albumin 2.8 g/dL (3.4-5.0); Alkaline Phosphatase 62 U/L (45-117); Anion Gap 8 meq/L (5-15); Aspartate Aminotransferase 13 U/L (15-37); Blood Urea Nitrogen 25 mg/dL (7-18); Calcium 8.5 mg/dL (8.5-10.1); Carbon Dioxide 25.7 meq/L (21.0-32.0); Chloride 109 meq/L (98-107); Glomerular Filtration Rate 15 mL/min (>89); Glucose,Random 117 mg/dL (74-106); Magnesium 1.6 mg/dL (1.5-2.5); Phosphorus 4.9 mg/dL (2.5-4.9); Potassium 4.3 meq/L (3.5-5.1); Sodium 143 meq/L (136-145); Total Protein 6.5 g/dL (6.4-8.2)
[2017-12-03] MEDS ORDERED: Acetaminophen 325 MG Tablet PO PRN (08:50)
[2017-12-03] MEDS ORDERED: Sodium Chlor 0.9% Inj 250 ML IV.SIG SCH (09:00)
[2017-12-03] MEDS: Insulin NovoLOG Aspart Correctional Sugar Inj SQ SCH ×4 (10:58→21:39)
[2017-12-03] MEDS: Enoxaparin Inj 40 MG/0.4 ML Syringe SQ SCH (10:59)
[2017-12-03] MEDS: Pregabalin 25 MG Capsule PO SCH ×3 (11:01→17:12)
[2017-12-03] MEDS: Folic Acid 1 MG Tablet PO SCH (11:01)
[2017-12-03] MEDS: Lacosamide 100 MG Tablet PO SCH ×2 (11:04→21:39)
[2017-12-03] MEDS: Sertraline 50 MG Tablet PO SCH (11:05)
[2017-12-03] MEDS: Lactobacillus Acidophilus/L. Spores Tablet PO SCH ×3 (11:05→17:11)
[2017-12-03] MEDS: Sucralfate 1 GM Tablet PO SCH ×4 (11:05→21:39)
[2017-12-03] MEDS: Ciprofloxacin 500 MG Tablet PO SCH (11:05)
[2017-12-03] MEDS: Tiotropium Bromide 18 MCG/ACT Inhaler INH SCH (11:06)
[2017-12-03] MEDS: Pantoprazole Sodium 20 MG DR Tablet PO SCH (11:07)
--- NOTE | 2017-12-03 11:39 | P.PNIM ---
Subjective Interval history: I received a call from [facility] yesterday that the patient had become progressively weaker over several days and was very lethargic and stopped eating and drinking. I ordered her sent to the ED and was called for the adm. I consulted Neuro to see for AMS and later consulted renal to see for ANNA. Overnight with IVF and antibiotics for an apparent UTI, she has brightened and is conversive though still not totally oriented. Neuro and renal consults are pending. "This is a pleasant 77-year-old woman, resident of [facility], who was noted to be progressively weaker and confused over the past several days. She became dehydrated, stopped eating and drinking. She was treated with IV fluids overnight and antibiotics for possible UTI. She is better today. No focal deficits. Denies headaches." PER NEUROLOGY 11-28 Urine culture is positive for yeast. Antifungals added. No new complaints from the patient. Her mental status has improved compared to time of admit. Weakness remains. 11-29 Lethargy today. Final culture showed Mayela and Pseudomonas. Antibiotic adjusted. 11-30 REMAINS CONFUSED BUT MORE ALERT DW RN AND PT AND CM WILL NEED SNF IN NEXT FEW DAYS FROM [facility] LABS HYPERNATREMIA STILL FLUIDS ADJUSTED 12-01 LABS STILL PENDING REMAINS CONFUSED WILL NEED SNF DW RN AND PT WILL GET CT BRAIN NOW-STABLE MORE LETHARGIC TODAY- STOP BACLOFEN STOP BACLOFEN 12-02 MUCH MORE ALERT AND AWAKE AND INTERACTIVE TODAY DOES NOT LIKE THE PHONE OR THE TV OR THE CALL REMOTE DW RN AND PT AND CM SODIUM IS UP AGAIN RENAL FUNCTIONS NOT PERFECT 12-03 MUCH MORE ALERT AND EASY GOING TODAY DW RN AND PT AND CASE MANAGEMENT TRANSFUSE 2 UNITS TODAY AM LABS WILL NEED ACCESS Physical Exam Vital signs: Vital Signs 12/02/17 12:00 12/02/17 16:00 12/02/17 20:00 Temperature 98.2 F 98.2 F 97.7 F Pulse Rate 95 H 102 H 96 H Respiratory Rate 14 16 18 Blood Pressure 176/81 H 176/81 H 167/92 H Pulse Oximetry 100 100 99 12/03/17 00:00 12/03/17 04:00 12/03/17 08:00 Temperature 98.8 F 97.7 F 98.3 F Pulse Rate 94 H 90 94 H Respiratory Rate 18 18 16 Blood Pressure 133/67 143/70 H 135/80 Pulse Oximetry 99 97 100 Intake & Output 12/02/17 12/03/17 12/03/17 18:59 06:59 18:59 Intake Total 480 / 480 1240 / 1240 Balance 480 / 480 1240 / 1240 Weight 67.1 kg Intake: IV 1000 / 1000 D5W Inj 1,000 ML @ 84 mls/hr IV 1000 / 1000 .CONT .[id number] [facility] Rx#:[id number] Oral 480 / 480 240 / 240 Other: # Voids 3 # Incontinent Voids 3 Date of Last Bowel Movement 11/29/17 Narrative: GENERAL: NAD, awake and alert but very confused HEAD: Normocephalic. NECK: Supple, trachea midline. No lymphadenopathy. EYES: No scleral icterus. No injection or drainage. CARDIOVASCULAR: Regular rate and rhythm without murmurs, gallops, or rubs. RESPIRATORY: Breath sounds equal bilaterally. No accessory muscle use. GASTROINTESTINAL: Abdomen soft, non-tender, nondistended. MUSCULOSKELETAL: No cyanosis, or edema. SKIN: Warm and dry. NEURO: No focal neurological deficits. Generalized weakness. Insight and judgment is poor; mood and behavior is not appropriate - Urinary Catheter Management Straight Cath placed during this visit: yes, but has since been removed by the nurse Reason for continuing: Decision to DC catheter Insertion date: 11/26/17 Insertion time: 12:32 Removal date: 11/26/17 Removal time: 12:33 Results - Labs CBC & Chem 7: 12/03/17 05:05 12/03/17 05:05 Laboratory Results - last 24 hr 12/02/17 12/02/17 12/03/17 18:13 20:45 05:05 WBC 8.0 RBC 2.34 L Hgb 7.3 L Hct 21.8 L MCV 93.2 MCH 31.1 MCHC 33.4 RDW 15.8 Plt Count 266 MPV 8.2 Neut % (Auto) 59.5 Lymph % (Auto) 25.9 [place] % (Auto) 10.2 H Eos % (Auto) 3.8 Baso % (Auto) 0.6 Neut # (Auto) 4.8 Lymph # (Auto) 2.1 [place] # (Auto) 0.8 Eos # (Auto) 0.3 Baso # (Auto) 0.1 WBC Differential . Differential Comment Auto diff final Sodium Potassium Chloride Carbon Dioxide Anion Gap BUN Creatinine Estimated GFR POC Glucose 143 H 200 H Random Glucose Calcium Phosphorus Magnesium Total Bilirubin AST ALT Alkaline Phosphatase Total Protein Albumin 12/03/17 12/03/17 05:05 09:48 WBC RBC Hgb Hct MCV MCH MCHC RDW Plt Count MPV Neut % (Auto) Lymph % (Auto) [place] % (Auto) Eos % (Auto) Baso % (Auto) Neut # (Auto) Lymph # (Auto) [place] # (Auto) Eos # (Auto) Baso # (Auto) WBC Differential Differential Comment Sodium 143 Potassium 4.3 Chloride 109 H D Carbon Dioxide 25.7 Anion Gap 8 BUN 25 H Creatinine 3.09 H Estimated GFR 15 L POC Glucose 164 H Random Glucose 117 H Calcium 8.5 Phosphorus 4.9 Magnesium 1.6 Total Bilirubin 0.1 L AST 13 L ALT 13 Alkaline Phosphatase 62 Total Protein 6.5 Albumin 2.8 L - Procedures NONE Assessment and Plan - Assessment (1) Dehydration Code(s): E86.0 - Dehydration Status: Acute (2) Acute UTI Code(s): N39.0 - Urinary tract infection, site not specified Status: Acute (3) Acute kidney failure Code(s): N17.9 - Acute kidney failure, unspecified Status: Acute (4) Altered mental state Code(s): R41.82 - Altered mental status, unspecified Status: Acute - Plan 77-year-old female admitted secondary to dehydration, UTI, and metabolic encephalopathy related to infection. Urinary tract infection Mayela UTI Pseudomonas UTI Continue fluconazole Discontinue Levaquin Ciprofloxacin started Monitor for final urine culture Monitor for improvement in symptoms Acute kidney injury Prerenal azotemia Dehydration HYPERNATREMIA Improving Follow renal function ADJUST FLUIDS WORSENING RENAL FUNCTIONS Altered mental status Improving Continue to treat infection as above Neurology following CT OF BRAIN STABLE ON 12-01 STOP BACLOFEN -MONITOR MUCH IMPROVED TODAY Dementia Supportive care GAIT INSTABILITY PT AND OT DIABETES MELLITUS MONITOR SUGARS AND LABS MUCH MORE ALERT TODAY 12-02 AND 12-03 ANEMIA WILL TRANSFUSE 2 UNITS PRBC AM LABS Discharge planning Sister intends to take patient home at time of discharge, patient not stable for home yet-- OR TO SNF PROBABLY NEEDS SNF ONCE RENAL AND HYPERNATREMIA IMPROVE Code Status: FULL CODE Discussed Condition With: RN AND PT AND CM Discharge Planning: SNF VS HHC WITH SISTER?? (3) Acute kidney failure Qualifiers: Acute renal failure type: unspecified Qualified Code(s): N17.9 - Acute kidney failure, unspecified (4) Altered mental state Qualifiers: Altered mental status type: disorientation Qualified Code(s): R41.0 - Disorientation, unspecified
--- NOTE | 2017-12-03 14:13 | P.PNNP ---
Subjective Interval history: 77-year-old with weakness, UTI ARF Physical Exam Vital signs: Vital Signs 12/02/17 16:00 12/02/17 20:00 12/03/17 00:00 Temperature 98.2 F 97.7 F 98.8 F Pulse Rate 102 H 96 H 94 H Respiratory Rate 16 18 18 Blood Pressure 176/81 H 167/92 H 133/67 Pulse Oximetry 100 99 99 12/03/17 04:00 12/03/17 08:00 Temperature 97.7 F 98.3 F Pulse Rate 90 94 H Respiratory Rate 18 16 Blood Pressure 143/70 H 135/80 Pulse Oximetry 97 100 Intake & Output 12/02/17 12/03/17 12/03/17 18:59 06:59 18:59 Intake Total 480 / 480 1240 / 1240 Balance 480 / 480 1240 / 1240 Weight 67.1 kg Intake: IV 1000 / 1000 D5W Inj 1,000 ML @ 84 mls/hr IV 1000 / 1000 .CONT .[id number] [facility] Rx#:[id number] Oral 480 / 480 240 / 240 Other: # Voids 3 # Incontinent Voids 3 Date of Last Bowel Movement 11/29/17 - Constitutional no acute distress - Routine HEENT Exam Eye: Present: EOMI - Routine Neck Exam Present: supple - Routine Respiratory Exam Present: CTA bilaterally - Routine Cardiovascular Exam Present: RRR - Routine Abdominal Exam Present: soft, normoactive bowel sounds - Routine Extremities Exam Present: full ROM - Urinary Catheter Management Straight Cath placed during this visit: yes, but has since been removed by the nurse Reason for continuing: Decision to DC catheter Insertion date: 11/26/17 Insertion time: 12:32 Removal date: 11/26/17 Removal time: 12:33 Assessment and Plan - Assessment (1) Acute UTI Code(s): N39.0 - Urinary tract infection, site not specified Status: Acute (2) Acute prerenal azotemia Code(s): R79.89 - Other specified abnormal findings of blood chemistry Status : Acute - Plan Patient is covered with Diflucan as well Creatinine is better 3.09 creatinine Patient is marginally better on Cipro and Diflucan Sodium 143, IV fluid D5W Follow blood work Monitor BMP
[2017-12-03] MEDS: Acetaminophen 325 MG Tablet PO PRN (16:04)
[2017-12-04] MEDS: Ciprofloxacin 500 MG Tablet PO SCH ×2 (04:20→22:16)
[2017-12-04] MEDS: Dextrose 5% in Water Inj 1,000 ML IV.CONT SCH ×2 (05:25→21:15)
[2017-12-04 06:36] LABS: Baso # (Auto) 0.1 th/mm3 (0.0-0.2); Baso % (Auto) 0.5 % (0.0-2.0); Eos # (Auto) 0.3 th/mm3 (0.0-0.4); Eos % (Auto) 3.4 % (0.0-4.0); Hematocrit 33.8 % (35.0-46.0); Lymph # (Auto) 1.8 th/mm3 (1.0-4.8); Lymph % (Auto) 18.1 % (9.0-44.0); Mean Corpuscular HGB Conc 32.5 % (32.0-36.0); Mean Corpuscular Hemoglobin 30.1 pg (27.0-34.0); Mean Corpuscular Volume 92.6 fL (80.0-100.0); Mono # (Auto) 0.8 th/mm3 (0.0-0.9); Neut # (Auto) 7.1 th/mm3 (1.8-7.7); Platelet Count 258 th/mm3 (150-450); Red Blood Count 3.65 mil/mm3 (4.00-5.30); Red Cell Distribution Width 16.5 % (11.6-17.2); White Blood Count 10.1 th/mm3 (4.0-11.0)
[2017-12-04 06:49] LABS: Albumin 2.9 g/dL (3.4-5.0); Anion Gap 8 meq/L (5-15); Aspartate Aminotransferase 25 U/L (15-37); Blood Urea Nitrogen 29 mg/dL (7-18); Calcium 8.6 mg/dL (8.5-10.1); Carbon Dioxide 23.9 meq/L (21.0-32.0); Chloride 111 meq/L (98-107); Glomerular Filtration Rate 15 mL/min (>89); Glucose,Random 114 mg/dL (74-106); Magnesium 1.6 mg/dL (1.5-2.5); Potassium 4.4 meq/L (3.5-5.1); Sodium 143 meq/L (136-145)
[2017-12-04 06:50] LABS: Alanine Aminotransferase 16 U/L (10-53); Phosphorus 5.2 mg/dL (2.5-4.9)
[2017-12-04 06:52] LABS: Alkaline Phosphatase 72 U/L (45-117); Total Protein 6.7 g/dL (6.4-8.2)
[2017-12-04] MEDS: Insulin NovoLOG Aspart Correctional Sugar Inj SQ SCH ×3 (08:00→17:21)
--- NOTE | 2017-12-04 09:43 | P.PNIM ---
Subjective Interval history: Pt seen and examined for f/u ARF, UTI, and metabolic encephalopathy. AFVSS. Pt alert and oriented x 2 today. Doesn't know the year. She reports she is feeling well. No complaints. She states she goes through these "spells" frequently where she ends up in the hospital. Denies CP, SOB, abdominal pain, N/V. Tolerating PO. Physical Exam Vital signs: Vital Signs 12/03/17 12:00 12/03/17 16:33 12/03/17 16:49 Temperature 98.8 F 98.6 F 98.4 F Pulse Rate 101 H 88 80 Respiratory Rate 16 18 18 Blood Pressure 119/60 139/66 135/69 Pulse Oximetry 99 100 12/03/17 21:27 12/03/17 21:45 12/03/17 22:33 Temperature 98.3 F 97.9 F 97.9 F Pulse Rate 76 76 77 Respiratory Rate 17 16 Blood Pressure 162/67 H 175/73 H Pulse Oximetry 99 100 12/03/17 23:15 12/03/17 23:20 12/04/17 00:30 Temperature 98.6 F 98.6 F 98.7 F Pulse Rate 72 74 76 Respiratory Rate 16 16 22 Blood Pressure 167/72 H 162/82 H 184/88 H Pulse Oximetry 100 99 98 12/04/17 03:45 Temperature 97 F L Pulse Rate 78 Respiratory Rate 18 Blood Pressure 150/80 H Pulse Oximetry 98 Intake & Output 12/03/17 12/04/17 12/04/17 18:59 06:59 18:59 Intake Total 480 / 480 400 / 400 Balance 480 / 480 400 / 400 Weight 67 kg Intake: Oral 480 / 480 400 / 400 Intake (Blood Product) Amt 0 / 0 0 / 0 Rbc As-3 Leukoreduced Unit 0 / 0 [id number] Rbc As-3 Leukoreduced Unit 0 / 0 [id number] Other: # Voids 2 4 Date of Last Bowel Movement 11/29/17 11/29/17 # Incontinent Bowel Movements 1 Narrative: GENERAL: Elderly female resting in bed in NAD. SKIN: Warm and dry. HEENT: AT/NC. Pupils equal and round. MMM. Edentulous. NECK: Supple no tender LAD or JVD. HEART: RRR no m/r/g. LUNGS: CTAB without wheezes or crackles. ABDOMEN: +BS, soft, NT, ND. EXTREMITIES: No LE edema. NEURO: Awake and alert. - Urinary Catheter Management Straight Cath placed during this visit: yes, but has since been removed by the nurse Reason for continuing: Decision to DC catheter Insertion date: 11/26/17 Insertion time: 12:32 Removal date: 11/26/17 Removal time: 12:33 Results - Labs CBC & Chem 7: 12/04/17 06:07 12/04/17 05:46 Laboratory Results - last 24 hr 12/03/17 12/03/17 12/03/17 09:48 11:45 13:06 WBC RBC Hgb Hct MCV MCH MCHC RDW Plt Count MPV Neut % (Auto) Lymph % (Auto) [place] % (Auto) Eos % (Auto) Baso % (Auto) Neut # (Auto) Lymph # (Auto) [place] # (Auto) Eos # (Auto) Baso # (Auto) WBC Differential Differential Comment Hematology Comments Sodium Potassium Chloride Carbon Dioxide Anion Gap BUN Creatinine Estimated GFR POC Glucose 164 H 178 H Random Glucose Calcium Phosphorus Magnesium Total Bilirubin AST ALT Alkaline Phosphatase Total Protein Albumin Blood Type O Positive Antibody Screen Negative MTS Gel Crossmatch See Detail Bld Prod Order Comment 12/03/17 12/03/17 12/04/17 17:09 21:38 05:46 WBC RBC Hgb Hct MCV MCH MCHC RDW Plt Count MPV Neut % (Auto) Lymph % (Auto) [place] % (Auto) Eos % (Auto) Baso % (Auto) Neut # (Auto) Lymph # (Auto) [place] # (Auto) Eos # (Auto) Baso # (Auto) WBC Differential Differential Comment Hematology Comments Sodium 143 Potassium 4.4 Chloride 111 H Carbon Dioxide 23.9 Anion Gap 8 BUN 29 H Creatinine 3.00 H Estimated GFR 15 L POC Glucose 105 145 H Random Glucose 114 H Calcium 8.6 Phosphorus 5.2 H Magnesium 1.6 Total Bilirubin 0.3 AST 25 ALT 16 Alkaline Phosphatase 72 Total Protein 6.7 Albumin 2.9 L Blood Type Antibody Screen MTS Gel Crossmatch Bld Prod Order Comment 12/04/17 12/04/17 06:07 07:27 WBC 10.1 RBC 3.65 L Hgb 11.0 L D Hct 33.8 L MCV 92.6 MCH 30.1 MCHC 32.5 RDW 16.5 Plt Count 258 MPV 8.0 Neut % (Auto) 70.0 Lymph % (Auto) 18.1 [place] % (Auto) 8.0 Eos % (Auto) 3.4 Baso % (Auto) 0.5 Neut # (Auto) 7.1 Lymph # (Auto) 1.8 [place] # (Auto) 0.8 Eos # (Auto) 0.3 Baso # (Auto) 0.1 WBC Differential . Differential Comment Auto diff final Hematology Comments Sodium Potassium Chloride Carbon Dioxide Anion Gap BUN Creatinine Estimated GFR POC Glucose 118 H Random Glucose Calcium Phosphorus Magnesium Total Bilirubin AST ALT Alkaline Phosphatase Total Protein Albumin Blood Type Antibody Screen MTS Gel Crossmatch Bld Prod Order Comment - Procedures NONE Assessment and Plan - Assessment (1) Dehydration Code(s): E86.0 - Dehydration Status: Acute (2) Acute UTI Code(s): N39.0 - Urinary tract infection, site not specified Status: Acute (3) Acute kidney failure Code(s): N17.9 - Acute kidney failure, unspecified Status: Acute (4) Altered mental state Code(s): R41.82 - Altered mental status, unspecified Status: Acute - Plan 77 year old female with history of HTN, DM, HLD, anemia, cervical cancer, anxiety, and depression admitted on for progressive weakness, altered mental stats, and poor oral intake. On admission she was found to be in acute renal failure. 1. Acute renal failure - Patient has a baseline creatinine between 0.9 and 1.2 and on admission her creatinine was 3.5 - Likely secondary to volume depletion though only minimal improvement after IV hydration - Creatinine continues to be around 3 - Nephrology consulted - Avoid nephrotoxic agents (home metformin stopped) - Avoid NSAIDs - STOP Lovenox. Change to heparin 2. UTI - U/A with blood and leukocyte esterase - Urine culture with Mayela and Pseudomonas - Continue Cipro and Diflucan 3. Acute metabolic encephalopathy - Likely secondary to infection and acute renal failure - Brain imaging studies negative - Neurology agrees with treating underlying infection/ARF as a cause - Avoid sedatives 4. Hypernatremia - Improving - Continue D5W 5. Anemia - s/p 2 units PRBCS - Hemoglobin up to 11.0 this AM - Likely secondary to anemia of chronic disease - FOBT ordered 6. DM - SSI with Accuchecks per protocol 7. HTN - BPs elevated - Start Norvasc 5 mg and titrate as needed - Clonidine PRN 8. COPD - Continue Spiriva 9. Depression - Cnotinue home Zoloft 10. HLD - Continue home statin DVT prophylaxis: Heparin Discussed Condition With: team driver Planning: Anticipate D/C over next few days if cleared by nephrology. PT recommending rehab. Case management assisting. (3) Acute kidney failure Qualifiers: Acute renal failure type: unspecified Qualified Code(s): N17.9 - Acute kidney failure, unspecified (4) Altered mental state Qualifiers: Altered mental status type: disorientation Qualified Code(s): R41.0 - Disorientation, unspecified
[2017-12-04] MEDS: Folic Acid 1 MG Tablet PO SCH (10:46)
[2017-12-04] MEDS: Pantoprazole Sodium 20 MG DR Tablet PO SCH (10:46)
[2017-12-04] MEDS: Lactobacillus Acidophilus/L. Spores Tablet PO SCH ×3 (10:47→18:54)
[2017-12-04] MEDS: Sertraline 50 MG Tablet PO SCH (10:47)
[2017-12-04] MEDS: Pregabalin 25 MG Capsule PO SCH ×3 (10:47→18:52)
[2017-12-04] MEDS: Lacosamide 100 MG Tablet PO SCH ×2 (10:47→22:15)
[2017-12-04] MEDS: Sucralfate 1 GM Tablet PO SCH ×4 (10:48→22:15)
[2017-12-04] MEDS: Tiotropium Bromide 18 MCG/ACT Inhaler INH SCH (10:50)
[2017-12-04] MEDS: amLODIPine 5 MG Tablet PO SCH (10:56)
--- NOTE | 2017-12-04 16:12 | P.PNNP ---
Subjective Interval history: Patient is about the same Physical Exam Vital signs: Vital Signs 12/03/17 16:33 12/03/17 16:49 12/03/17 21:27 Temperature 98.6 F 98.4 F 98.3 F Pulse Rate 88 80 76 Respiratory Rate 18 18 17 Blood Pressure 139/66 135/69 Pulse Oximetry 100 99 12/03/17 21:45 12/03/17 22:33 12/03/17 23:15 Temperature 97.9 F 97.9 F 98.6 F Pulse Rate 76 77 72 Respiratory Rate 16 16 Blood Pressure 162/67 H 175/73 H 167/72 H Pulse Oximetry 100 100 12/03/17 23:20 12/04/17 00:30 12/04/17 03:45 Temperature 98.6 F 98.7 F 97 F L Pulse Rate 74 76 78 Respiratory Rate 16 22 18 Blood Pressure 162/82 H 184/88 H 150/80 H Pulse Oximetry 99 98 98 Intake & Output 12/03/17 12/04/17 12/04/17 18:59 06:59 18:59 Intake Total 480 / 480 400 / 400 Balance 480 / 480 400 / 400 Weight 67 kg Intake: Oral 480 / 480 400 / 400 Intake (Blood Product) Amt 0 / 0 0 / 0 Rbc As-3 Leukoreduced Unit 0 / 0 [id number] Rbc As-3 Leukoreduced Unit 0 / 0 [id number] Other: # Voids 2 4 Date of Last Bowel Movement 11/29/17 11/29/17 # Incontinent Bowel Movements 1 - Constitutional no acute distress - Routine HEENT Exam Head: Present: normocephalic - Routine Neck Exam Present: supple - Routine Respiratory Exam Present: CTA bilaterally - Routine Cardiovascular Exam Present: RRR - Routine Abdominal Exam Present: soft, normoactive bowel sounds - Routine Extremities Exam Present: pulses intact - Urinary Catheter Management Straight Cath placed during this visit: yes, but has since been removed by the nurse Reason for continuing: Decision to DC catheter Insertion date: 11/26/17 Insertion time: 12:32 Removal date: 11/26/17 Removal time: 12:33 Assessment and Plan - Assessment (1) Acute UTI Code(s): N39.0 - Urinary tract infection, site not specified Status: Acute (2) Acute prerenal azotemia Code(s): R79.89 - Other specified abnormal findings of blood chemistry Status : Acute - Plan Patient is covered with Diflucan as well Creatinine is better 3 creatinine Patient is marginally better on Cipro and Diflucan Sodium 143, IV fluid D5W Follow blood work Monitor BMP records looking on 08/09/[address] scan with IV contrast subsequently has a creatinine was slightly up at 1.24 from a baseline of 0.9 This may be related to contrast-induced kidney dysfunction Check into protein electrophoresis, SABI C3/C4
[2017-12-04] MEDS: Enoxaparin Inj 40 MG/0.4 ML Syringe SQ SCH (21:42)
[2017-12-04] MEDS: Heparin - SQ 10,000 UNITS/ML Vial SQ SCH (22:15)
[2017-12-04] MEDS: Acetaminophen 325 MG Tablet PO PRN (23:59)
[2017-12-05] MEDS: Insulin NovoLOG Aspart Correctional Sugar Inj SQ SCH ×5 (03:10→21:45)
[2017-12-05 06:04] LABS: Hematocrit 33.5 % (35.0-46.0); Hemoglobin 11.2 gm/dL (11.6-15.3); Mean Corpuscular HGB Conc 33.3 % (32.0-36.0); Mean Corpuscular Hemoglobin 30.4 pg (27.0-34.0); Mean Corpuscular Volume 91.4 fL (80.0-100.0); Mean Platelet Volume 8.3 fL (7.0-11.0); Platelet Count 260 th/mm3 (150-450); Red Blood Count 3.67 mil/mm3 (4.00-5.30); Red Cell Distribution Width 16.1 % (11.6-17.2); White Blood Count 9.2 th/mm3 (4.0-11.0)
[2017-12-05 06:55] LABS: Calcium 8.5 mg/dL (8.5-10.1); Carbon Dioxide 25.6 meq/L (21.0-32.0); Potassium 4.1 meq/L (3.5-5.1)
[2017-12-05] MEDS: Dextrose 5% in Water Inj 1,000 ML IV.CONT SCH ×2 (07:29→17:09)
[2017-12-05] MEDS: Lactobacillus Acidophilus/L. Spores Tablet PO SCH ×3 (08:02→17:09)
[2017-12-05] MEDS: Sucralfate 1 GM Tablet PO SCH ×4 (08:03→21:44)
[2017-12-05] MEDS: Lacosamide 100 MG Tablet PO SCH ×2 (08:03→21:44)
[2017-12-05] MEDS: Folic Acid 1 MG Tablet PO SCH (08:03)
[2017-12-05] MEDS: Pregabalin 25 MG Capsule PO SCH ×3 (08:03→17:08)
[2017-12-05] MEDS: Tiotropium Bromide 18 MCG/ACT Inhaler INH SCH (08:03)
[2017-12-05] MEDS: Sertraline 50 MG Tablet PO SCH (08:03)
[2017-12-05] MEDS: amLODIPine 5 MG Tablet PO SCH (08:03)
[2017-12-05] MEDS: Heparin - SQ 10,000 UNITS/ML Vial SQ SCH ×2 (08:03→21:44)
--- NOTE | 2017-12-05 09:20 | P.PNIM ---
Subjective Interval history: Pt seen and examined. Pleasantly confused. Denies CP, SOB, abdominal pain, N/V. Tolerating PO. Feels weak. Physical Exam Vital signs: Vital Signs 12/04/17 12:00 12/04/17 16:00 12/04/17 21:50 Temperature 98.2 F 98.2 F 97.9 F Pulse Rate 82 91 H 76 Respiratory Rate 16 16 19 Blood Pressure 145/64 H 123/67 150/80 H Pulse Oximetry 100 100 98 12/05/17 00:40 12/05/17 05:15 12/05/17 08:00 Temperature 98 F 97.8 F 97.8 F Pulse Rate 68 63 95 H Respiratory Rate 18 20 16 Blood Pressure 148/98 H 139/89 162/98 H Pulse Oximetry 97 98 96 Intake & Output 12/04/17 12/05/17 12/05/17 18:59 06:59 18:59 Intake Total 680 / 680 1575 / 1575 Balance 680 / 680 1575 / 1575 Weight 65.5 kg Intake: IV 200 / 200 250 / 250 Diflucan 400 mg Premix Bag 200 200 / 200 ML @ 100 mls/hr IV.SIG Q24H [facility] Rx#:[id number] Oral 480 / 480 1325 / 1325 Other: # Voids 2 4 # Incontinent Voids 4 Date of Last Bowel Movement 11/29/17 12/03/17 12/04/17 # Bowel Movements 1 0 # Incontinent Bowel Movements 0 Narrative: GENERAL: Elderly female resting in bed in [facility]. SKIN: Warm and dry. HEENT: AT/NC. Pupils equal and round. MMM. Edentulous. NECK: Supple no tender LAD or JVD. HEART: RRR no m/r/g. LUNGS: CTAB without wheezes or crackles. ABDOMEN: +BS, soft, NT, ND. EXTREMITIES: No LE edema. NEURO: Awake and alert. - Urinary Catheter Management Straight Cath placed during this visit: yes, but has since been removed by the nurse Reason for continuing: Decision to DC catheter Insertion date: 11/26/17 Insertion time: 12:32 Removal date: 11/26/17 Removal time: 12:33 Results - Labs CBC & Chem 7: 12/05/17 04:12 12/05/17 04:12 Laboratory Results - last 24 hr 12/04/17 12/04/17 12/04/17 13:11 17:13 20:46 WBC RBC Hgb Hct MCV MCH MCHC RDW Plt Count MPV Sodium Potassium Chloride Carbon Dioxide Anion Gap BUN Creatinine Estimated GFR POC Glucose 148 H 136 H 170 H Random Glucose Calcium Total Protein (PEP) Albumin (PEP) Albumin/Globulin Ratio Omkdn-6-Hwepwihct Smdzj-7-Cwssggrti Beta Globulins Gamma Globulins PEP Pathologist Comment Complement C3 Complement C4 12/05/17 12/05/17 12/05/17 04:12 04:12 04:12 WBC 9.2 RBC 3.67 L Hgb 11.2 L Hct 33.5 L MCV 91.4 MCH 30.4 MCHC 33.3 RDW 16.1 Plt Count 260 MPV 8.3 Sodium 144 Potassium 4.1 Chloride 106 Carbon Dioxide 25.6 Anion Gap 12 BUN 30 H Creatinine 2.88 H Estimated GFR 16 L POC Glucose Random Glucose 98 Calcium 8.5 Total Protein (PEP) Cancelled Albumin (PEP) Cancelled Albumin/Globulin Ratio Cancelled Adtyg-7-Ubjvcciwb Cancelled Putxe-1-Ybxxsphvw Cancelled Beta Globulins Cancelled Gamma Globulins Cancelled PEP Pathologist Comment Cancelled Complement C3 Cancelled 122 Complement C4 Cancelled 38 12/05/17 12/05/17 04:48 07:19 WBC RBC Hgb Hct MCV MCH MCHC RDW Plt Count MPV Sodium Potassium Chloride Carbon Dioxide Anion Gap BUN Creatinine Estimated GFR POC Glucose 110 158 H Random Glucose Calcium Total Protein (PEP) Albumin (PEP) Albumin/Globulin Ratio Jczzw-6-Syournmsc Fwknt-0-Xxhshfayf Beta Globulins Gamma Globulins PEP Pathologist Comment Complement C3 Complement C4 - Procedures NONE Assessment and Plan - Assessment (1) Acute UTI Code(s): N39.0 - Urinary tract infection, site not specified Status: Acute (2) Acute kidney failure Code(s): N17.9 - Acute kidney failure, unspecified Status: Acute (3) Dehydration Code(s): E86.0 - Dehydration Status: Resolved (4) Altered mental state Code(s): R41.82 - Altered mental status, unspecified Status: Acute - Plan 77 year old female with history of HTN, DM, HLD, anemia, cervical cancer, anxiety, and depression admitted on for progressive weakness, altered mental stats, and poor oral intake. On admission she was found to be in acute renal failure. 1. Acute renal failure - Patient has a baseline creatinine between 0.9 and 1.2 and on admission her creatinine was 3.5 - Likely secondary to combination of UTI, volume depletion, possible contrast related since CT was done a couple months ago, and perhaps interstitial nephritis - Creatinine improved this morning, down to 2.88 - Nephrology following - Avoid nephrotoxic agents (home metformin stopped) - Avoid NSAIDs - Will stop PPI as this can be associated with renal injury - Check urine eosinophils - SABI negative - Complement levels normal 2. UTI - U/A with blood and leukocyte esterase - Urine culture with Mayela and Pseudomonas - Continue Cipro and Diflucan 3. Acute metabolic encephalopathy - Improved - Likely secondary to infection and acute renal failure - Brain imaging studies negative - Neurology agrees with treating underlying infection/ARF as a cause - Avoid sedatives 4. Hypernatremia - Improving - Continue D5W 5. Anemia - s/p 2 units PRBCS - Hemoglobin continues to be around 11 - Likely secondary to anemia of chronic disease - FOBT ordered 6. DM - SSI with Accuchecks per protocol 7. HTN - BPs elevated - Starting Norvasc 5 mg this morning - Continue to follow and titrate meds as needed - Clonidine PRN 8. COPD - Not in acute exacerbation - Supplemental O2 PRN - Continue Spiriva 9. Depression - Continue home Zoloft 10. HLD - Continue home statin DVT prophylaxis: Heparin Discharge Planning: Anticipate D/C over next few days if cleared by nephrology. PT recommending rehab. Case management assisting. (2) Acute kidney failure Qualifiers: Acute renal failure type: unspecified Qualified Code(s): N17.9 - Acute kidney failure, unspecified (4) Altered mental state Qualifiers: Altered mental status type: disorientation Qualified Code(s): R41.0 - Disorientation, unspecified
[2017-12-05] MEDS: Ciprofloxacin 500 MG Tablet PO SCH (14:48)
--- NOTE | 2017-12-05 14:58 | P.PNNP ---
Subjective Interval history: Patient has acute renal failure, UTI, weakness Physical Exam Vital signs: Vital Signs 12/04/17 16:00 12/04/17 21:50 12/05/17 00:40 Temperature 98.2 F 97.9 F 98 F Pulse Rate 91 H 76 68 Respiratory Rate 16 19 18 Blood Pressure 123/67 150/80 H 148/98 H Pulse Oximetry 100 98 97 12/05/17 05:15 12/05/17 08:00 12/05/17 12:00 Temperature 97.8 F 97.8 F 98.4 F Pulse Rate 63 95 H 80 Respiratory Rate 20 16 18 Blood Pressure 139/89 162/98 H 135/65 Pulse Oximetry 98 96 100 Intake & Output 12/04/17 12/05/17 12/05/17 18:59 06:59 18:59 Intake Total 680 / 680 1575 / 1575 Balance 680 / 680 1575 / 1575 Weight 65.5 kg Intake: IV 200 / 200 250 / 250 Diflucan 400 mg Premix Bag 200 200 / 200 ML @ 100 mls/hr IV.SIG Q24H BR[facility]NN Rx#:[id number] Oral 480 / 480 1325 / 1325 Other: # Voids 2 4 # Incontinent Voids 4 Date of Last Bowel Movement 11/29/17 12/03/17 12/04/17 # Bowel Movements 1 0 # Incontinent Bowel Movements 0 - Constitutional no acute distress - Routine HEENT Exam Eye: Present: EOMI - Routine Neck Exam Present: supple - Routine Respiratory Exam Present: CTA bilaterally - Routine Cardiovascular Exam Present: RRR - Routine Abdominal Exam Present: soft - Routine Extremities Exam Present: pulses intact - Urinary Catheter Management Straight Cath placed during this visit: yes, but has since been removed by the nurse Reason for continuing: Decision to DC catheter Insertion date: 11/26/17 Insertion time: 12:32 Removal date: 11/26/17 Removal time: 12:33 Assessment and Plan - Assessment (1) Acute UTI Code(s): N39.0 - Urinary tract infection, site not specified Status: Acute (2) Acute prerenal azotemia Code(s): R79.89 - Other specified abnormal findings of blood chemistry Status : Acute - Plan Patient is covered with Diflucan as well Creatinine is better 2.8 creatinine Patient is marginally better on Cipro and Diflucan Follow blood work Monitor BMP records on 08/09/[address] scan with IV contrast subsequently has a creatinine was slightly up at 1.24 from a baseline of 0.9 This may be related to contrast-induced kidney dysfunction Check into protein electrophoresis, SABI C3/C4 normal range
[2017-12-06] MEDS: Dextrose 5% in Water Inj 1,000 ML IV.CONT SCH ×2 (04:32→17:35)
[2017-12-06 07:35] LABS: Calcium 9.4 mg/dL (8.5-10.1); Carbon Dioxide 26.3 meq/L (21.0-32.0); Potassium 4.2 meq/L (3.5-5.1)
[2017-12-06] MEDS: Insulin NovoLOG Aspart Correctional Sugar Inj SQ SCH ×4 (09:03→23:43)
[2017-12-06] MEDS: Sucralfate 1 GM Tablet PO SCH ×4 (09:04→20:17)
[2017-12-06] MEDS: Pregabalin 25 MG Capsule PO SCH ×3 (09:04→17:35)
[2017-12-06] MEDS: Lacosamide 100 MG Tablet PO SCH ×2 (09:04→20:17)
[2017-12-06] MEDS: Ciprofloxacin 500 MG Tablet PO SCH (09:04)
[2017-12-06] MEDS: amLODIPine 5 MG Tablet PO SCH (09:04)
[2017-12-06] MEDS: Lactobacillus Acidophilus/L. Spores Tablet PO SCH ×3 (09:04→17:35)
[2017-12-06] MEDS: Sertraline 50 MG Tablet PO SCH (09:04)
[2017-12-06] MEDS: Folic Acid 1 MG Tablet PO SCH (09:04)
[2017-12-06] MEDS: Heparin - SQ 10,000 UNITS/ML Vial SQ SCH ×2 (09:04→20:16)
[2017-12-06] MEDS: Tiotropium Bromide 18 MCG/ACT Inhaler INH SCH (09:05)
--- NOTE | 2017-12-06 11:15 | P.PNIM ---
Subjective Interval history: Pt seen and examined. AFVSS. No acute events overnight. Off of nasal cannula oxygen. Reports she is feeling better today and when asked to elaborate she states "I feel less sick." She is seen eating breakfast which she complains is not enough but lunch and dinner are plenty. Denies CP, SOB, abdominal pain, N/ V. Physical Exam Vital signs: Vital Signs 12/05/17 12:00 12/05/17 16:00 12/05/17 19:48 Temperature 98.4 F 98.2 F Pulse Rate 80 84 Respiratory Rate 18 18 Blood Pressure 135/65 155/65 H Pulse Oximetry 100 100 99 12/05/17 20:00 12/06/17 00:00 12/06/17 04:00 Temperature 97.8 F 98.1 F 98.3 F Pulse Rate 84 91 H 86 Respiratory Rate 18 18 18 Blood Pressure 134/61 128/63 126/64 Pulse Oximetry 95 97 96 12/06/17 08:00 Temperature 98.2 F Pulse Rate 84 Respiratory Rate 18 Blood Pressure 137/68 Pulse Oximetry 97 Intake & Output 12/05/17 12/06/17 12/06/17 18:59 06:59 18:59 Intake Total 200 / 200 Output Total 2 / 2 Balance 198 / 198 Weight 63.2 kg Intake: IV 200 / 200 Diflucan 400 mg Premix Bag 200 200 / 200 ML @ 100 mls/hr IV.SIG Q24H BRYNN Rx#:[id number] Output: Urine 2 / 2 Other: # Incontinent Voids 6 1 Date of Last Bowel Movement 12/04/17 12/04/17 12/04/17 # Bowel Movements 0 Narrative: GENERAL: Elderly female sitting up in bed in [facility]. SKIN: Warm and dry. HEENT: AT/NC. Pupils equal and round. MMM. Edentulous. NECK: Supple no tender LAD or JVD. HEART: RRR no m/r/g. LUNGS: CTAB without wheezes or crackles. ABDOMEN: +BS, soft, NT, ND. EXTREMITIES: No LE edema. NEURO: Awake and alert. - Urinary Catheter Management Straight Cath placed during this visit: yes, but has since been removed by the nurse Reason for continuing: Decision to DC catheter Insertion date: 11/26/17 Insertion time: 12:32 Removal date: 11/26/17 Removal time: 12:33 Results - Labs CBC & Chem 7: 12/05/17 04:12 12/06/17 05:34 Laboratory Results - last 24 hr 12/05/17 12/05/17 12/05/17 04:12 10:45 11:22 Sodium Potassium Chloride Carbon Dioxide Anion Gap BUN Creatinine Estimated GFR POC Glucose 182 H Random Glucose Calcium Total Protein (PEP) Urine Eosinophils Rare H SABI Screen Neg 12/05/17 12/05/17 12/05/17 16:09 16:41 20:56 Sodium Potassium Chloride Carbon Dioxide Anion Gap BUN Creatinine Estimated GFR POC Glucose 152 H 135 H Random Glucose Calcium Total Protein (PEP) 6.9 Urine Eosinophils SABI Screen 12/06/17 12/06/17 05:34 07:05 Sodium 145 Potassium 4.2 Chloride 107 Carbon Dioxide 26.3 Anion Gap 12 BUN 29 H Creatinine 2.82 H Estimated GFR 16 L POC Glucose 115 H Random Glucose 111 H Calcium 9.4 D Total Protein (PEP) Urine Eosinophils SABI Screen - Procedures NONE Assessment and Plan - Assessment (1) Acute UTI Code(s): N39.0 - Urinary tract infection, site not specified Status: Acute (2) Acute kidney failure Code(s): N17.9 - Acute kidney failure, unspecified Status: Acute (3) Dehydration Code(s): E86.0 - Dehydration Status: Resolved (4) Altered mental state Code(s): R41.82 - Altered mental status, unspecified Status: Acute - Plan 77 year old female with history of HTN, DM, HLD, anemia, cervical cancer, anxiety, and depression admitted on for progressive weakness, altered mental stats, and poor oral intake. On admission she was found to be in acute renal failure. 12/06: Continuing to follow renal function. Nephrology following. Awaiting SPEP. If this is her new baseline then hopefully she can be discharged soon with further work-up as outpatient. 1. Acute renal failure - Patient has a baseline creatinine between 0.9 and 1.2 and on admission her creatinine was 3.5 - Likely secondary to combination of UTI, volume depletion, possible contrast related since CT was done a couple months ago, and perhaps interstitial nephritis - Creatinine improved this morning, down to 2.82 - Nephrology following - Avoid nephrotoxic agents (home metformin stopped) - Avoid NSAIDs - Will stop PPI as this can be associated with renal injury - Rare urine eosinophils - SABI negative - Complement levels normal - Awaiting SPEP results 2. UTI - U/A with blood and leukocyte esterase - Urine culture with Mayela and Pseudomonas - Continue Cipro and Diflucan 3. Acute metabolic encephalopathy - Improved - Likely secondary to infection and acute renal failure - Brain imaging studies negative - Neurology agrees with treating underlying infection/ARF as a cause - Avoid sedatives 4. Hypernatremia - Resolved - Continue D5W 5. Anemia - s/p 2 units PRBCS - Hemoglobin continues to be around 11 - Likely secondary to anemia of chronic disease - FOBT ordered 6. DM - SSI with Accuchecks per protocol 7. HTN - Improved after starting Norvasc - Clonidine PRN - Continue to monitor 8. COPD - Not in acute exacerbation - Supplemental O2 PRN - Continue Spiriva 9. Depression - Continue home Zoloft 10. HLD - Continue home statin DVT prophylaxis: Heparin Discharge Planning: Anticipate D/C over next few days if cleared by nephrology. PT recommending rehab. Case management assisting. (2) Acute kidney failure Qualifiers: Acute renal failure type: unspecified Qualified Code(s): N17.9 - Acute kidney failure, unspecified (4) Altered mental state Qualifiers: Altered mental status type: disorientation Qualified Code(s): R41.0 - Disorientation, unspecified
--- NOTE | 2017-12-06 11:17 | P.PNNP ---
Subjective Interval history: Patient is doing better Physical Exam Vital signs: Vital Signs 12/05/17 12:00 12/05/17 16:00 12/05/17 19:48 Temperature 98.4 F 98.2 F Pulse Rate 80 84 Respiratory Rate 18 18 Blood Pressure 135/65 155/65 H Pulse Oximetry 100 100 99 12/05/17 20:00 12/06/17 00:00 12/06/17 04:00 Temperature 97.8 F 98.1 F 98.3 F Pulse Rate 84 91 H 86 Respiratory Rate 18 18 18 Blood Pressure 134/61 128/63 126/64 Pulse Oximetry 95 97 96 12/06/17 08:00 Temperature 98.2 F Pulse Rate 84 Respiratory Rate 18 Blood Pressure 137/68 Pulse Oximetry 97 Intake & Output 12/05/17 12/06/17 12/06/17 18:59 06:59 18:59 Intake Total 200 / 200 Output Total 2 / 2 Balance 198 / 198 Weight 63.2 kg Intake: IV 200 / 200 Diflucan 400 mg Premix Bag 200 200 / 200 ML @ 100 mls/hr IV.SIG Q24H BRYNN Rx#:[id number] Output: Urine 2 / 2 Other: # Incontinent Voids 6 1 Date of Last Bowel Movement 12/04/17 12/04/17 12/04/17 # Bowel Movements 0 - Constitutional no acute distress - Routine Neck Exam Present: supple - Routine Respiratory Exam Present: CTA bilaterally - Routine Cardiovascular Exam Present: RRR - Routine Abdominal Exam Present: soft, normoactive bowel sounds - Routine Extremities Exam Present: full ROM - Urinary Catheter Management Straight Cath placed during this visit: yes, but has since been removed by the nurse Reason for continuing: Decision to DC catheter Insertion date: 11/26/17 Insertion time: 12:32 Removal date: 11/26/17 Removal time: 12:33 Assessment and Plan - Assessment (1) Acute UTI Code(s): N39.0 - Urinary tract infection, site not specified Status: Acute (2) Acute prerenal azotemia Code(s): R79.89 - Other specified abnormal findings of blood chemistry Status : Acute - Plan Patient is covered with Diflucan as well Creatinine is better 2.82creatinine Patient is marginally better on Cipro and Diflucan Follow blood work Monitor BMP records on 08/09/[address] scan with IV contrast subsequently has a creatinine was slightly up at 1.24 from a baseline of 0.9 This may be related to contrast-induced kidney dysfunction Check into protein electrophoresis, SABI negative Rare eosinophils C3/C4 normal range
[2017-12-07] MEDS: Ciprofloxacin 500 MG Tablet PO SCH (02:35)
[2017-12-07] MEDS: Acetaminophen 325 MG Tablet PO PRN (02:35)
[2017-12-07] MEDS: Dextrose 5% in Water Inj 1,000 ML IV.CONT SCH ×3 (03:35→17:16)
[2017-12-07 08:12] LABS: Carbon Dioxide 25.7 meq/L (21.0-32.0); Potassium 3.9 meq/L (3.5-5.1)
[2017-12-07] MEDS: Insulin NovoLOG Aspart Correctional Sugar Inj SQ SCH ×4 (09:37→21:19)
[2017-12-07] MEDS: amLODIPine 5 MG Tablet PO SCH (09:41)
[2017-12-07] MEDS: Folic Acid 1 MG Tablet PO SCH (09:41)
[2017-12-07] MEDS: Lactobacillus Acidophilus/L. Spores Tablet PO SCH ×3 (09:41→17:21)
[2017-12-07] MEDS: Tiotropium Bromide 18 MCG/ACT Inhaler INH SCH (09:42)
[2017-12-07] MEDS: Sucralfate 1 GM Tablet PO SCH ×4 (09:42→21:13)
[2017-12-07] MEDS: Sertraline 50 MG Tablet PO SCH (09:42)
[2017-12-07] MEDS: Pregabalin 25 MG Capsule PO SCH ×3 (09:42→17:21)
[2017-12-07] MEDS: Heparin - SQ 10,000 UNITS/ML Vial SQ SCH ×2 (09:46→21:16)
[2017-12-07] MEDS: Lacosamide 100 MG Tablet PO SCH ×2 (09:50→21:16)
--- NOTE | 2017-12-07 11:22 | P.PNIM ---
Subjective Interval history: Patient reports she is feeling better. She would like to get up in the chair. Physical Exam Vital signs: Vital Signs 12/06/17 12:00 12/06/17 16:00 12/06/17 20:00 Temperature 97.4 F L 98.5 F 97.8 F Pulse Rate 88 94 H 101 H Respiratory Rate 18 18 18 Blood Pressure 127/61 136/59 L 144/67 H Pulse Oximetry 97 96 101 H 12/07/17 00:00 12/07/17 04:00 12/07/17 08:00 Temperature 97.9 F 98 F 98.1 F Pulse Rate 93 H 85 88 Respiratory Rate 18 18 20 Blood Pressure 116/56 L 134/64 153/67 H Pulse Oximetry 97 95 98 12/07/17 08:19 12/07/17 08:21 Temperature Pulse Rate 111 H Respiratory Rate 18 Blood Pressure Pulse Oximetry 97 Intake & Output 12/06/17 12/07/17 12/07/17 18:59 06:59 18:59 Intake Total 2180 / 2180 1000 / 1000 Balance 2180 / 2180 1000 / 1000 Weight 63.9 kg Intake: IV 1200 / 1200 1000 / 1000 D5W Inj 1,000 ML @ 84 mls/hr IV 1000 / 1000 1000 / 1000 .CONT .[id number] BRYNN Rx#:[id number] Diflucan 400 mg Premix Bag 200 200 / 200 ML @ 100 mls/hr IV.SIG Q24H BRYNN Rx#:[id number] Oral 980 / 980 Other: # Incontinent Voids 5 2 Date of Last Bowel Movement 12/04/17 12/06/17 12/07/17 # Bowel Movements 1 # Incontinent Bowel Movements 1 Narrative: GENERAL: Elderly female laying in bed. No apparent distress. HEART: RRR no m/r/g. LUNGS: CTAB without wheezes or crackles. ABDOMEN: +BS, soft, NT, ND. EXTREMITIES: No LE edema. NEURO: Awake and alert. - Urinary Catheter Management Straight Cath placed during this visit: yes, but has since been removed by the nurse Reason for continuing: Decision to DC catheter Insertion date: 11/26/17 Insertion time: 12:32 Removal date: 11/26/17 Removal time: 12:33 Results - Labs CBC & Chem 7: 12/05/17 04:12 12/07/17 07:22 Laboratory Results - last 24 hr 12/05/17 12/06/17 12/06/17 16:09 12:41 16:39 Sodium Potassium Chloride Carbon Dioxide Anion Gap BUN Creatinine Estimated GFR POC Glucose 142 H 129 H Random Glucose Calcium Albumin (PEP) 3.79 Albumin/Globulin Ratio 1.22 L Bsgfi-2-Nisvpvbmh 0.29 Gykjx-8-Owhmjmyyu 0.89 Beta Globulins 0.83 Gamma Globulins 1.10 12/06/17 12/07/17 12/07/17 21:08 07:22 08:07 Sodium 140 Potassium 3.9 Chloride 105 Carbon Dioxide 25.7 Anion Gap 9 BUN 30 H Creatinine 2.76 H Estimated GFR 17 L POC Glucose 163 H 124 H Random Glucose 132 H Calcium 9.0 Albumin (PEP) Albumin/Globulin Ratio Hmzga-8-Vhspyemqn Wxwol-0-Vucrebipb Beta Globulins Gamma Globulins - Procedures NONE Assessment and Plan - Assessment (1) Acute UTI Code(s): N39.0 - Urinary tract infection, site not specified Status: Acute (2) Acute kidney failure Code(s): N17.9 - Acute kidney failure, unspecified Status: Acute (3) Dehydration Code(s): E86.0 - Dehydration Status: Resolved (4) Altered mental state Code(s): R41.82 - Altered mental status, unspecified Status: Acute - Plan 77 year old female with history of HTN, DM, HLD, anemia, cervical cancer, anxiety, and depression admitted on for progressive weakness, altered mental stats, and poor oral intake. On admission she was found to be in acute renal failure. 1. Acute renal failure - Patient has a baseline creatinine between 0.9 and 1.2 and on admission her creatinine was 3.5 - Likely secondary to combination of UTI, volume depletion, possible contrast related since CT was done a couple months ago, and perhaps interstitial nephritis - Creatinine slowly improving, down to 2.7 - Nephrology following, appreciate assistance. - Avoid nephrotoxic agents (home metformin stopped) - Avoid NSAIDs - Rare urine eosinophils - SABI negative - Complement levels normal - Awaiting SPEP results 2. UTI - U/A with blood and leukocyte esterase - Urine culture with Mayela and Pseudomonas - Completed treatment with Cipro and Diflucan 3. Acute metabolic encephalopathy - Improved - Likely secondary to infection and acute renal failure - Brain imaging studies negative - Neurology agrees with treating underlying infection/ARF as a cause - Avoid sedatives 4. Hypernatremia - Resolved - Continue D5W 5. Anemia - s/p 2 units PRBCS - Hemoglobin continues to be around 11 - Likely secondary to anemia of chronic disease - FOBT ordered 6. DM - SSI with Accuchecks per protocol 7. HTN - Improved after starting Norvasc - Clonidine PRN - Continue to monitor 8. COPD - Not in acute exacerbation - Supplemental O2 PRN - Continue Spiriva 9. Depression - Continue home Zoloft 10. HLD - Continue home statin DVT prophylaxis: Heparin Discharge Planning: Anticipate D/C over next few days if cleared by nephrology. Will need SNF placement. (2) Acute kidney failure Qualifiers: Qualified Code(s): N17.9 - Acute kidney failure, unspecified (4) Altered mental state Qualifiers: Qualified Code(s): R41.0 - Disorientation, unspecified
--- NOTE | 2017-12-07 15:21 | P.PNNP ---
Subjective Interval history: Doing okay Physical Exam Vital signs: Vital Signs 12/06/17 16:00 12/06/17 20:00 12/07/17 00:00 Temperature 98.5 F 97.8 F 97.9 F Pulse Rate 94 H 101 H 93 H Respiratory Rate 18 Blood Pressure 136/59 L 144/67 H 116/56 L Pulse Oximetry 96 101 H 97 12/07/17 04:00 12/07/17 08:00 12/07/17 08:19 Temperature 98 F 98.1 F Pulse Rate 85 88 111 H Respiratory Rate 18 Blood Pressure 134/64 153/67 H Pulse Oximetry 95 98 12/07/17 08:21 12/07/17 12:00 Temperature 98.5 F Pulse Rate 94 H Respiratory Rate 21 Blood Pressure 133/64 Pulse Oximetry 97 96 Intake & Output 12/06/17 12/07/17 12/07/17 18:59 06:59 18:59 Intake Total 2180 / 2180 1000 / 1000 1200 / 1200 Balance 2180 / 2180 1000 / 1000 1200 / 1200 Weight 63.9 kg Intake: IV 1200 / 1200 1000 / 1000 1200 / 1200 D5W Inj 1,000 ML @ 84 mls/hr IV 1000 / 1000 1000 / 1000 1000 / 1000 .CONT .[id number] BRYNN Rx#:[id number] Diflucan 400 mg Premix Bag 200 200 / 200 200 / 200 ML @ 100 mls/hr IV.SIG Q24H BR[facility]NN Rx#:[id number] Oral 980 / 980 Other: # Incontinent Voids 5 2 Date of Last Bowel Movement 12/04/17 12/06/17 12/07/17 # Bowel Movements 1 # Incontinent Bowel Movements 1 - Constitutional no acute distress - Routine HEENT Exam Head: Present: tenderness of temporal artery - Routine Neck Exam Present: supple - Routine Respiratory Exam Present: CTA bilaterally - Routine Cardiovascular Exam Present: RRR - Routine Abdominal Exam Present: soft, normoactive bowel sounds - Routine Extremities Exam Present: pulses intact - Urinary Catheter Management Straight Cath placed during this visit: yes, but has since been removed by the nurse Reason for continuing: Decision to DC catheter Insertion date: 11/26/17 Insertion time: 12:32 Removal date: 11/26/17 Removal time: 12:33 Assessment and Plan - Assessment (1) Acute UTI Code(s): N39.0 - Urinary tract infection, site not specified Status: Acute (2) Acute prerenal azotemia Code(s): R79.89 - Other specified abnormal findings of blood chemistry Status : Acute - Plan Patient is covered with Diflucan as well Creatinine is better 2.7 creatinine Patient is marginally better on Cipro and Diflucan Follow blood work Monitor BMP This may be related to contrast-induced kidney dysfunction Check into protein electrophoresis, SABI negative Rare eosinophils C3/C4 normal range ATN which is resolving
[2017-12-08] MEDS: Dextrose 5% in Water Inj 1,000 ML IV.CONT SCH ×2 (04:09→17:56)
[2017-12-08 05:21] LABS: Hematocrit 34.8 % (35.0-46.0); Hemoglobin 11.7 gm/dL (11.6-15.3); Mean Corpuscular HGB Conc 33.7 % (32.0-36.0); Mean Corpuscular Hemoglobin 30.5 pg (27.0-34.0); Mean Corpuscular Volume 90.6 fL (80.0-100.0); Mean Platelet Volume 8.4 fL (7.0-11.0); Platelet Count 283 th/mm3 (150-450); Red Blood Count 3.84 mil/mm3 (4.00-5.30); Red Cell Distribution Width 15.8 % (11.6-17.2); White Blood Count 9.4 th/mm3 (4.0-11.0)
[2017-12-08 05:52] LABS: Calcium 9.3 mg/dL (8.5-10.1); Potassium 3.7 meq/L (3.5-5.1)
[2017-12-08] MEDS: Insulin NovoLOG Aspart Correctional Sugar Inj SQ SCH ×4 (08:00→21:30)
[2017-12-08] MEDS: Lactobacillus Acidophilus/L. Spores Tablet PO SCH ×3 (09:15→17:54)
[2017-12-08] MEDS: Lacosamide 100 MG Tablet PO SCH ×2 (09:15→21:30)
[2017-12-08] MEDS: amLODIPine 5 MG Tablet PO SCH (09:15)
[2017-12-08] MEDS: Folic Acid 1 MG Tablet PO SCH (09:15)
[2017-12-08] MEDS: Heparin - SQ 10,000 UNITS/ML Vial SQ SCH ×2 (09:16→21:30)
[2017-12-08] MEDS: Pregabalin 25 MG Capsule PO SCH ×3 (09:23→17:55)
[2017-12-08] MEDS: Sertraline 50 MG Tablet PO SCH (09:23)
[2017-12-08] MEDS: Sucralfate 1 GM Tablet PO SCH ×4 (09:23→21:30)
[2017-12-08] MEDS: Tiotropium Bromide 18 MCG/ACT Inhaler INH SCH (12:27)
--- NOTE | 2017-12-08 16:12 | P.PNIM ---
Subjective Interval history: Patient reports she is feeling okay today. No new issues. Physical Exam Vital signs: Vital Signs 12/07/17 20:00 12/08/17 00:00 12/08/17 04:00 Temperature 98.3 F 97.9 F 98.2 F Pulse Rate 88 81 82 Respiratory Rate 18 18 18 Blood Pressure 149/65 H 119/61 139/67 Pulse Oximetry 95 95 95 12/08/17 08:00 12/08/17 12:00 Temperature 98.1 F 98.1 F Pulse Rate 88 89 Respiratory Rate 17 18 Blood Pressure 122/59 L 127/65 Pulse Oximetry 97 100 Intake & Output 12/07/17 12/08/17 12/08/17 18:59 06:59 18:59 Intake Total 1860 / 1860 1000 / 1000 Output Total 1250 / 1250 Balance 1860 / 1860 -250 / -250 Weight 63.2 kg Intake: IV 1200 / 1200 1000 / 1000 D5W Inj 1,000 ML @ 84 mls/hr IV 1000 / 1000 1000 / 1000 .CONT .[id number] BR[facility]NN Rx#:[id number] Diflucan 400 mg Premix Bag 200 200 / 200 ML @ 100 mls/hr IV.SIG Q24H BR[facility]NN Rx#:[id number] Oral 660 / 660 Output: Urine 1250 / 1250 Other: # Voids 3 Date of Last Bowel Movement 12/07/17 12/06/17 # Bowel Movements 0 Narrative: GENERAL: Elderly female laying in bed. No apparent distress. HEART: RRR no m/r/g. LUNGS: CTAB without wheezes or crackles. ABDOMEN: +BS, soft, NT, ND. EXTREMITIES: No LE edema. NEURO: Awake and alert. - Urinary Catheter Management Straight Cath placed during this visit: yes, but has since been removed by the nurse Reason for continuing: Decision to DC catheter Insertion date: 11/26/17 Insertion time: 12:32 Removal date: 11/26/17 Removal time: 12:33 Results - Labs CBC & Chem 7: 12/08/17 04:49 12/08/17 04:49 Laboratory Results - last 24 hr 12/07/17 12/07/17 12/07/17 17:18 21:15 21:16 WBC RBC Hgb Hct MCV MCH MCHC RDW Plt Count MPV Sodium Potassium Chloride Carbon Dioxide Anion Gap BUN Creatinine Estimated GFR POC Glucose 116 H 140 H 129 H Random Glucose Calcium 12/08/17 12/08/17 12/08/17 04:49 04:49 08:54 WBC 9.4 RBC 3.84 L Hgb 11.7 Hct 34.8 L MCV 90.6 MCH 30.5 MCHC 33.7 RDW 15.8 Plt Count 283 MPV 8.4 Sodium 139 Potassium 3.7 Chloride 104 Carbon Dioxide 25.0 Anion Gap 10 BUN 27 H Creatinine 2.70 H Estimated GFR 17 L POC Glucose 112 H Random Glucose 106 Calcium 9.3 12/08/17 12:08 WBC RBC Hgb Hct MCV MCH MCHC RDW Plt Count MPV Sodium Potassium Chloride Carbon Dioxide Anion Gap BUN Creatinine Estimated GFR POC Glucose 144 H Random Glucose Calcium - Procedures NONE Assessment and Plan - Assessment (1) Acute UTI Code(s): N39.0 - Urinary tract infection, site not specified Status: Acute (2) Acute kidney failure Code(s): N17.9 - Acute kidney failure, unspecified Status: Acute (3) Dehydration Code(s): E86.0 - Dehydration Status: Resolved (4) Altered mental state Code(s): R41.82 - Altered mental status, unspecified Status: Acute - Plan 77 year old female with history of HTN, DM, HLD, anemia, cervical cancer, anxiety, and depression admitted for progressive weakness, altered mental stats , and poor oral intake. On admission she was found to be in acute renal failure. 1. Acute renal failure - Patient has a baseline creatinine between 0.9 and 1.2 and on admission her creatinine was 3.5 - Likely secondary to combination of UTI, volume depletion, possible contrast related since CT was done a couple months ago, and perhaps interstitial nephritis - Creatinine slowly improving, stable today at 2.7 - Nephrology following, appreciate assistance. - Avoid nephrotoxic agents (home metformin stopped) - Avoid NSAIDs - Rare urine eosinophils - SABI negative - Complement levels normal - Awaiting SPEP results 2. UTI - U/A with blood and leukocyte esterase - Urine culture with Mayela and Pseudomonas - Completed treatment with Cipro and Diflucan 3. Acute metabolic encephalopathy - Improved - Likely secondary to infection and acute renal failure - Brain imaging studies negative - Neurology agrees with treating underlying infection/ARF as a cause - Avoid sedatives 4. Hypernatremia - Resolved - Continue D5W 5. Anemia - s/p 2 units PRBCS - Hemoglobin continues to be around 11 - Likely secondary to anemia of chronic disease - FOBT ordered 6. DM - SSI with Accuchecks per protocol 7. HTN - Improved after starting Norvasc - Clonidine PRN - Continue to monitor 8. COPD - Not in acute exacerbation - Supplemental O2 PRN - Continue Spiriva 9. Depression - Continue home Zoloft 10. HLD - Continue home statin DVT prophylaxis: Heparin Discharge Planning: Case management and assisting with SNF placement. No accepting facility yet. Need clearance from nephrology. (2) Acute kidney failure Qualifiers: Acute renal failure type: unspecified Qualified Code(s): N17.9 - Acute kidney failure, unspecified (4) Altered mental state Qualifiers: Altered mental status type: disorientation Qualified Code(s): R41.0 - Disorientation, unspecified
--- NOTE | 2017-12-08 19:01 | P.PNNP ---
Subjective Interval history: Patient wants to go home Physical Exam Vital signs: Vital Signs 12/07/17 20:00 12/08/17 00:00 12/08/17 04:00 Temperature 98.3 F 97.9 F 98.2 F Pulse Rate 88 81 82 Respiratory Rate 18 18 18 Blood Pressure 149/65 H 119/61 139/67 Pulse Oximetry 95 95 95 12/08/17 08:00 12/08/17 12:00 12/08/17 16:00 Temperature 98.1 F 98.1 F 99.2 F Pulse Rate 88 89 94 H Respiratory Rate 17 18 18 Blood Pressure 122/59 L 127/65 137/68 Pulse Oximetry 97 100 100 Intake & Output 12/07/17 12/08/17 12/08/17 18:59 06:59 18:59 Intake Total 1860 / 1860 1000 / 1000 1000 / 1000 Output Total 1250 / 1250 Balance 1860 / 1860 -250 / -250 1000 / 1000 Weight 63.2 kg Intake: IV 1200 / 1200 1000 / 1000 1000 / 1000 D5W Inj 1,000 ML @ 84 mls/hr IV 1000 / 1000 1000 / 1000 1000 / 1000 .CONT .[id number] [facility] Rx#:[id number] Diflucan 400 mg Premix Bag 200 200 / 200 ML @ 100 mls/hr IV.SIG Q24H [facility] Rx#:[id number] Oral 660 / 660 Output: Urine 1250 / 1250 Other: # Voids 3 Date of Last Bowel Movement 12/07/17 12/06/17 # Bowel Movements 0 - Constitutional no acute distress - Routine HEENT Exam Eye: Present: EOMI - Routine Respiratory Exam Present: CTA bilaterally - Routine Cardiovascular Exam Present: RRR - Routine Abdominal Exam Present: soft, normoactive bowel sounds - Routine Extremities Exam Present: pulses intact - Urinary Catheter Management Straight Cath placed during this visit: yes, but has since been removed by the nurse Reason for continuing: Decision to DC catheter Insertion date: 11/26/17 Insertion time: 12:32 Removal date: 11/26/17 Removal time: 12:33 Assessment and Plan - Assessment (1) Acute UTI Code(s): N39.0 - Urinary tract infection, site not specified Status: Acute (2) Acute prerenal azotemia Code(s): R79.89 - Other specified abnormal findings of blood chemistry Status : Acute - Plan Patient is covered with Diflucan as well Creatinine is better 2.7 creatinine Patient can be discharged from nephrology point of view and follow-up as outpatient Negative protein electrophoresis, SABI negative Rare eosinophils C3/C4 normal range ATN which is resolving
[2017-12-09] MEDS: Dextrose 5% in Water Inj 1,000 ML IV.CONT SCH ×2 (03:36→16:08)
[2017-12-09 06:32] LABS: Calcium 8.8 mg/dL (8.5-10.1); Carbon Dioxide 24.6 meq/L (21.0-32.0); Potassium 3.7 meq/L (3.5-5.1)
[2017-12-09] MEDS: Insulin NovoLOG Aspart Correctional Sugar Inj SQ SCH ×2 (09:04→12:44)
[2017-12-09] MEDS: Folic Acid 1 MG Tablet PO SCH (09:40)
[2017-12-09] MEDS: Pregabalin 25 MG Capsule PO SCH ×2 (09:40→12:44)
[2017-12-09] MEDS: Lacosamide 100 MG Tablet PO SCH (09:40)
[2017-12-09] MEDS: Sucralfate 1 GM Tablet PO SCH ×2 (09:40→13:15)
[2017-12-09] MEDS: Lactobacillus Acidophilus/L. Spores Tablet PO SCH ×2 (09:40→12:45)
[2017-12-09] MEDS: Heparin - SQ 10,000 UNITS/ML Vial SQ SCH (09:41)
[2017-12-09] MEDS: amLODIPine 5 MG Tablet PO SCH (09:41)
[2017-12-09] MEDS: Sertraline 50 MG Tablet PO SCH (09:41)
[2017-12-09] MEDS: Tiotropium Bromide 18 MCG/ACT Inhaler INH SCH (09:42)
--- NOTE | 2017-12-09 10:14 | P.DS ---
Date of admission: 11/26/17 15:03 Primary care physician: Chalo Garcia DO Anticipated date of discharge: 12/09/17 Brief History from admission: HPI from the admitting physician: I received a call from Mica yesterday that the patient had become progressively weaker over several days and was very lethargic and stopped eating and drinking. I ordered her sent to the ED and was called for the adm. I consulted Neuro to see for AMS and later consulted renal to see for ANNA. Overnight with IVF and antibiotics for an apparent UTI, she has brightened and is conversive though still not totally oriented. Neuro and renal consults are pending. Patient update on day of discharge: Patient reports she is feeling okay. Looking forward to go to rehabilitation. DS: Diagnosis - Discharge Diagnosis (1) Acute UTI Status: Acute (2) Acute kidney failure Status: Acute (3) Dehydration Status: Resolved (4) Altered mental state Status: Acute DS: Summary Hospital Course: 77 year old female with history of HTN, DM, HLD, anemia, cervical cancer, anxiety, and depression admitted for progressive weakness, altered mental stats , and poor oral intake. On admission she was found to be in acute renal failure. Treatment course detailed below: 1. Acute renal failure - Patient has a baseline creatinine between 0.9 and 1.2 and on admission her creatinine was 3.5 - Likely secondary to combination of UTI, volume depletion, possible contrast related since CT was done a couple months ago, and perhaps interstitial nephritis - Nephrology followed the patient. Renal function slowly improved. 2. UTI - U/A with blood and leukocyte esterase - Urine culture with Mayela and Pseudomonas - Completed treatment with Cipro and Diflucan 3. Acute metabolic encephalopathy - Improved - Likely secondary to infection and acute renal failure - Brain imaging studies negative - Neurology agrees with treating underlying infection/ARF as a cause - Avoid sedatives 4. Hypernatremia - Resolved 5. Anemia - s/p 2 units PRBCS - Hemoglobin continues to be around 11 - Likely secondary to anemia of chronic disease 6. DM - SSI with Accuchecks per protocol 7. HTN - Improved after starting Norvasc - Clonidine PRN - Continue to monitor 8. COPD - Not in acute exacerbation - Supplemental O2 PRN - Continue Spiriva 9. Depression - Continue home Zoloft 10. HLD - Continue home statin - Time Spent with Patient Total time spent providing and/or coordinating discharge services: Greater than 30 minutes Exam Vital signs: Vital Signs 12/08/17 12:00 12/08/17 16:00 12/08/17 20:00 Temperature 98.1 F 99.2 F 98.7 F Pulse Rate 89 94 H 92 H Respiratory Rate 18 18 18 Blood Pressure 127/65 137/68 110/77 Pulse Oximetry 100 100 95 12/09/17 00:00 12/09/17 04:00 12/09/17 08:00 Temperature 98.4 F 98.2 F 98.4 F Pulse Rate 89 83 88 Respiratory Rate 18 18 17 Blood Pressure 127/62 116/56 L 122/59 L Pulse Oximetry 95 96 98 Intake & Output 12/08/17 12/09/17 12/09/17 18:59 06:59 18:59 Intake Total 1000 / 1000 501 / 501 Output Total 2 / 2 Balance 1000 / 1000 499 / 499 Weight 65.1 kg Intake: IV 1000 / 1000 D5W Inj 1,000 ML @ 84 mls/hr IV 1000 / 1000 .CONT .[id number] BRYNN Rx#:[id number] Oral 501 / 501 Output: Stool 2 / 2 Other: # Voids 2 # Incontinent Voids 1 Date of Last Bowel Movement 12/08/17 # Incontinent Bowel Movements 1 Narrative: GENERAL: Elderly female laying in bed. No apparent distress. HEART: RRR no m/r/g. LUNGS: CTAB without wheezes or crackles. ABDOMEN: +BS, soft, NT, ND. EXTREMITIES: No LE edema. NEURO: Awake and alert. Results Procedures completed during hospitalization: NONE Labs on day of discharge: Labs from last 24 hours 12/09/17 12/09/17 12/08/17 08:09 05:53 20:36 Sodium 139 Potassium 3.7 Chloride 104 Carbon Dioxide 24.6 Anion Gap 10 BUN 30 H Creatinine 2.66 H Estimated GFR 17 L POC Glucose 127 H 133 H Random Glucose 112 H Calcium 8.8 PEP Pathologist Comment 12/08/17 12/05/17 12:08 16:09 Sodium Potassium Chloride Carbon Dioxide Anion Gap BUN Creatinine Estimated GFR POC Glucose 144 H Random Glucose Calcium PEP Pathologist Comment - Impressions ITS Impressions Chest X-Ray 11/26/17 12:21 CONCLUSION: 1. No acute abnormality or significant interval change. Abdomen/Bladder Ultrasound 11/27/17 15:34 CONCLUSION: 1. Limited quality examination. 2. No evidence of hydronephrosis in the right kidney, possible 5 mm nonobstructing stone mid pole. 3. Left kidney is not visualized (prior CT and August 2017 demonstrated the left kidney). Head CT 12/01/17 00:00 CONCLUSION: 1. No acute intracranial abnormality. 2. Left sphenoid sinus disease. . Discharge Plan - Discharge Disposition Patient Disposition: 63 Re[facility] Inpatient - Discharge Condition Condition: Stable - Discharge Order Discharge Orders: Discharge Order (Routine); Ordered 12/09/17 Ordered By: Radha Limon - Physicians Team Primary Care Provider: Chalo Garcia Attending Provider: Radha Limon Other Providers: Guillermo Pabon MD ; John Martinez MD, PhD ; [facility],Agency ; Amie Patiño,[place]
[2017-12-09 12:38] VITALS: BP 120/58; PULSE 87; RESP 20; TEMP 98.2; O2SAT 97
== END 2017-12-09 16:29 ==
LOC: NEDA 11:44 → NEPC 11:44 → OBSVTOIN 14:56 → NEPGCP 16:00 → N05 11-29 18:14
PROVIDERS: ADMIT Family Medicine; ATTEND Family Medicine